=== PATIENT | male | born 1960 | race Caucasian/White ===

== ENCOUNTER → 2017-04-09 | Outpatient (CLI) | payer OTHER ==
[~2017-04-09] MED LIST: ASPEC81 PO; ATEN50TA8 PO; CEPH500C PO; CHOL100027 PO; DICL-201 PO; GABA-113 PO; GLCSR500 PO; IBUP-1427 PO; INSDGIPEN SQ; LSN5 PO; NRN300 PO; NVLGI SC; PLV75 PO; SIMV20TA2 PO; TRAM-10 PO
--- NOTE | 2017-04-09 12:11 | DIAGNOSTIC IMAGING REPORT ---
R TOE(S) MIN 2 VIEWS CLINICAL HISTORY: 56 years-old Male presenting with RIGHT 1ST TOE PAIN. TECHNIQUE: Frontal, oblique, and lateral views of the right first toe were obtained. COMPARISON: None. FINDINGS: A bandage overlies the medial aspect of the distal toe partially obscuring underlying osseous detail. Radiolucency in the region of the entire and medial aspect of the distal toe raises concern for subcutaneous emphysema or an open wound. No acute fracture or malalignment. Mild degenerative change at the first metatarsophalangeal articulation. The interphalangeal joint is intact. Atherosclerosis. IMPRESSION: Suggestion of soft tissue emphysema along the medial and plantar aspects of the distal first toe. This could raise concern for an open wound or necrotizing fasciitis depending on the clinical scenario. Alternatively, this may be artifactual. No acute osseous injury. Electronically signed by: Rudolph Arce M.D. 04/09/2017 12:09 PM Dictated Date/Time: 04/09/2017 12:07 PM
== END | disposition home or self-care (01) ==
LOC: C.RAD 11:27
PROVIDERS: ATTEND Physician Assistant
DX: M79.671 Pain in right foot (principal)

== ENCOUNTER 2024-10-10 09:00 | Inpatient (IN) ==
--- NOTE | 2024-10-10 09:10 | Emergency Department Note ---
Impression & Plan Sepsis, ESRD on peritoneal dialysis, Acute hyperglycemia, Acute dehydration ED Provider Note NAME: JULIANE CAMPBELL AGE: 64 SEX: M : 1960 ARRIVES VIA: Ambulance INFORMANT: Patient, ED PROVIDER(S): Abdirahman Enrique MD CHIEF COMPLAINT: MEDICAL DECISION MAKING: Patient presents due to concern for fevers tachycardia. Sepsis protocols initiated IV cefepime ordered. Patient clinically very dry and was ordered 1 L of IV fluids. IV Tylenol ordered. Screening chest x-ray and bio fire. Do not believe require CT of the head at this time patient is febrile likely infectious etiology given the patient's "fall" was him sliding out of his recliner to his buttocks. No reported head strike or LOC. 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 Not likely a cause of the patient's acute symptoms today. Patient was ordered a liter of IV fluids but the patient was not given 30 cc/kg bolus in light of his known dialysis history. Next Patient with a white count of 22 hemoglobin 11.8 with a normal platelet count. Patient kidney function with a crit of 6.5 BUN is 60. Potassium is not elevated. Lactate of 2.8 BioFire negative. Pro-Karthikeyan 7.1 with a troponin of 249. No active chest pain and no obvious STEMI. Patient was ordered a dose of IV vancomycin after discussion with on-call nephrology Dr. Mckenzie. I subsequently did speak the on-call hospitalist service Vitaliy Rich PA-C and the patient was admitted by Dr. Coker. Upon reassessment the patient was feeling improved. Discussion w/ other healthcare providers: Dr. Mckenzie nephrology Vitaliy Rich PA-C and Dr. Coker inpatient medicine service Prior /Outside records reviewed: None Differential diagnosis: Dehydration, UTI, pneumonia, metabolic derangment, electrolyte abnormalities, hypovolemia, anemia, cellulitis among others were considered. Diagnostics, as interpreted by me: ECG: A sensed V paced rhythm rate of 84 wide QRS no obvious STEMI. Cardiac monitoring: An order was placed for continuous cardiac monitoring. The monitor shows a rate of 95 with sinus rhythm. Patient was placed on pulse oximetry Medical decision rules: None Imaging studies: I informally interpreted the patient's chest x-ray does not show obvious pneumonia with formal report to follow. HPI: Patient presents due to concern for confusion worsening over the last 3 days. Patient is a known diabetic. Reportedly was 89% on room air but improved on 4 L. EMS reported patient was tachypneic at the time but that seems to have improved. The patient has a dry cough. Patient was febrile to 39. reports that she did have some rigors yesterday. She reports that he did not have a true fall but he slid out of his lazy boy on Thursday and did require EMS to show up for an assist. No head strike or LOC. The patient denies any abdominal pain. He does receive peritoneal dialysis. He does not make urine. He does follow with Dr. Abarca. Not eating or drinking very much. PAST MEDICAL HISTORY: See Below PAST SURGICAL HISTORY: See Below SOCIAL HISTORY: See Below HOME MEDICATIONS: See Below ALLERGIES: See Below VITALS: See Below PHYSICAL EXAMINATION: GENERAL: Mildly ill in appearance but nontoxic. Wearing glasses. EYE EXAM: Normal conjunctiva. PERRL, no anisocoria and EOM's grossly intact w/o pain. OROPHARYNX: Dry mucus membranes, grossly normal dentition. NECK: Trachea midline, no stridor. LUNGS: Clear to auscultation. Normal chest wall mechanics. HEART: NSR, no MRG. ABDOMEN: Abdomen soft, non-tender, no masses, no rebound or guarding. BACK: No CVA TTP. SKIN: No rashes and no bruising. UPPER EXTREMITIES:Dry gangrene noted to the distal right fourth and fifth digits. LOWER EXTREMITIES: Grossly normal, no edema. Redness to left 2nd and 3rd digits of the foot. NEURO EXAM: Awake and alert, follows commands, oriented to person and place but not to year. No obvious facial asymmetry, normal speech, moves all 4 extremities. 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) Chronic osteomyelitis (Chronic) Surgical wound, non healing (Acute) No significant past surgical history Person under investigation for COVID-19 (Acute) Status post partial amputation of foot Peripheral vascular disease (Chronic) History of diabetic ulcer of foot Cervical radiculopathy (Acute) CVA (cerebral infarction) (Chronic) HTN (hypertension) (Chronic) Diabetes mellitus (Chronic) Tendonitis (Chronic) Cervical radiculopathy (Acute) Chest pain (Acute) Chest pain (Acute) Diabetic peripheral neuropathy associated with type 2 diabetes mellitus Hyperglycemia (Chronic) Hyperglycemic crisis in diabetes mellitus (Acute 05/22/13) Loss of sensation Upper extremity pain (Acute) Medical History Amputation of left great toe Osteomyelitis Hallux abducto valgus, bilateral Amputated great toe of right foot Diabetes mellitus with neuropathy Diabetic peripheral neuropathy Callus Surgical History History of revascularization procedure of lower extremity Social History Smoking Status: Former smoker Tobacco Type: Smokeless Tobacco (Dip or Chew) Do You Dip or Chew Tobacco: Yes; Tobacco Cessation Education Requested by Patient: No Hx Alcohol Use: Yes Alcohol type: beer Hx Substance Use: No Preferred Language: Ukrainian Communication Ability: Effective Visual Impairment: Limited Hearing Ability: Normal Electrician Manager Required: No Beliefs That Will Affect Care: None marital status: Current Living Situation: Spouse current occupational status: employed 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 Feels Safe at Home: Yes Safety Concerns: Feels Safe At This Time Diet: diabetic caffeine: Yes Physical Activity Frequency: Daily Do you think of yourself as: straight/heterosexual Gender Identity: Male Assistive Devices: Glasses, Walker and Wheelchair Allergies Allergies Allergy/AdvReac Type Severity Reaction Status Date / Time daptomycin Allergy Rash Verified 10/10/24 09:48 Home Meds Home Medications Medication Instructions Recorded Confirmed atenolol 50 mg tablet 50 mg PO QAM 03/07/20 10/10/24 atorvastatin 40 mg tablet 80 mg PO QPM 03/07/20 10/10/24 clopidogrel 75 mg tablet 75 mg PO HS 03/07/20 10/10/24 insulin aspart U-100 100 unit/mL 1 sliding scale dose subcut UD 03/07/20 10/10/24 (3 mL) subcutaneous pen (Novolog FlexPen U-100 Insulin aspart) insulin glargine 100 unit/mL (3 20 unit subcut BID 03/07/20 10/10/24 mL) subcutaneous pen (Basaglar KwikPen U-100 Insulin) aspirin 81 mg tablet,delayed 81 mg PO DAILY 11/01/21 10/10/24 release cholecalciferol (vitamin D3) 25 25 mcg PO .3X WEEK 11/01/21 10/10/24 mcg (1,000 unit) tablet (Vitamin D3) acetaminophen 500 mg tablet 500 - 1,000 mg PO UD PRN Pain 10/10/24 10/10/24 amlodipine 5 mg tablet 2.5 mg PO QAM 10/10/24 10/10/24 gabapentin 600 mg tablet 600 mg PO TID 10/10/24 10/10/24 torsemide 100 mg tablet 100 mg PO DAILY 10/10/24 10/10/24 Results & Data (ED) Vital Signs Vital Signs - 24 hr 10/10/24 09:01 10/10/24 09:01 Temperature 39.4 C H Temperature Source Rectal Pulse Rate 94 H Respiratory Rate 16 Respiratory Effort / Characteristics Non-Labored Spontaneous Respiratory Depth Normal Respiratory Pattern Regular Blood Pressure 149/80 H Blood Pressure Mean 103 Pulse Oximetry 97 97 Oxygen Delivery Method Room Air Room Air Sepsis Recent Fever Within 48 Hours Yes Sepsis New/Unexplained Change in Mental Status Yes Sepsis Action Taken by Nursing Physician Notified Home Medications Current Medication List: was personally reviewed by me Laboratory Data Attestation: I reviewed the patient's lab results. 10/11/24 04:03 10/11/24 04:03 Lab Results 10/10/24 10/10/24 10/10/24 Range/Units 09:41 09:43 09:45 WBC 22.62 H (4.8-10.8) K/ul RBC 3.67 L (4.70-6.10) M/uL Hgb 11.8 L (14.0-18.0) g/dl POC Hgb (14.0-18.0) g/dl Hct 34.0 L (42.0-52.0) % POC Hct (42-52) % MCV 92.6 (80.0-100.0) fL MCH 32.2 (25.0-34.0) pg MCHC 34.7 (32.0-36.0) g/dL RDW Std Deviation 45.2 (36.4-46.3) fL RDW Coeff of Kesha 13.3 (11.5-14.5) % Plt Count 165 (130-400) K/uL MPV 10.9 (9.4-12.4) fL Immature Gran % (Auto) 1.5 % Neut % (Auto) 85.8 % Lymph % (Auto) 4.2 % [place] % (Auto) 8.0 % Eos % (Auto) 0.3 % Baso % (Auto) 0.2 % Neut # (Auto) 19.41 H (1.40-6.50) K/uL Lymph # (Auto) 0.96 L (1.20-3.40) K/uL [place] # (Auto) 1.81 H (0.11-0.59) K/uL Eos # (Auto) 0.06 (0.00-0.50) K/uL Baso # (Auto) 0.05 (0.00-0.20) K/uL Immature Gran # (Auto) 0.33 H (0.01-0.20) K/uL POC Sodium (135-144) mmol/L Sodium 131 L (136-145) mmol/L POC Potassium (3.3-5.0) mmol/L Potassium 3.6 (3.5-5.1) mmol/L POC Chloride (101-112) mmol/L Chloride 92 L (98-107) mmol/L Carbon Dioxide 26 (21-32) mmol/L POC Total CO2 (24-31) mmol/L Anion Gap 13 H (3-11) POC Anion Gap (16-25) mmol/L POC BUN (7-18) mg/dl BUN 60 H (6-23) mg/dl Creatinine 6.53 H* (0.6-1.4) mg/dl POC Creatinine (0.6-1.3) mg/dl Est Cr Clr Drug Dosing 14.8 ml/min eGFR 8.90 BUN/Creatinine Ratio 9.2 L (10-20) Glucose 451 H* (70-99(Fasting)) mg/dl POC Glucose (other) (70-99) mg/dl Lactate 2.8 H* (0.4-2.0) mmol/L Calcium 8.4 L (8.6-10.3) mg/dl POC Ioniz Calcium Osmin (1.12-1.32) mmol/l Magnesium 1.7 (1.7-2.4) mg/dl Total Bilirubin 1.2 H (0.2-1.0) mg/dl Direct Bilirubin 0.5 H (0-0.2) mg/dl AST 62 H (13-39) U/L ALT 46 (7-52) U/L Alkaline Phosphatase 125 H (34-104) U/L Troponin I High Sens 249.4 H* (0-20) pg/ml Total Protein 7.3 (6.0-8.3) gm/dl Albumin 3.3 L (3.4-5.0) gm/dl Procalcitonin 7.16 H (0-0.5) ng/ml Adenovirus (PCR) Not Detected (NotDetected) B. pertussis DNA (PCR) Not Detected (NotDetected) B.parapertussis DNA PCR Not Detected (NotDetected) C. pneumoniae DNA (PCR) Not Detected (NotDetected) Coronavirus OC43 (PCR) Not Detected (NotDetected) Coronavirus HKU1 (PCR) Not Detected (NotDetected) Coronavirus 229E (PCR) Not Detected (NotDetected) SARS-CoV-2 (PCR) Not Detected (NotDetected) Coronavirus NL63 (PCR) Not Detected (NotDetected) Human Metapneumovir PCR Not Detected (NotDetected) Influenza Type A (PCR) Not Detected (NotDetected) Influenza Type B (PCR) Not Detected (NotDetected) M. pneumoniae (PCR) Not Detected (NotDetected) Parainfluenza 1 (PCR) Not Detected (NotDetected) Parainfluenza 2 (PCR) Not Detected (NotDetected) Parainfluenza 3 (PCR) Not Detected (NotDetected) Parainfluenza 4 (PCR) Not Detected (NotDetected) RSV (PCR) Not Detected (NotDetected) Entero/Rhino (PCR) Not Detected (NotDetected) Staphylococcus sp PCR (NotDetected) Staph aureus (PCR) (NotDetected) mecA/C & MREJ Resist Gene (NotDetected) Bld Cult ID Panel PCR (NotDetected) 10/10/24 10/10/24 Range/Units 09:53 09:57 WBC (4.8-10.8) K/ul RBC (4.70-6.10) M/uL Hgb (14.0-18.0) g/dl POC Hgb 11.6 L (14.0-18.0) g/dl Hct (42.0-52.0) % POC Hct 34 L (42-52) % MCV (80.0-100.0) fL MCH (25.0-34.0) pg MCHC (32.0-36.0) g/dL RDW Std Deviation (36.4-46.3) fL RDW Coeff of Kesha (11.5-14.5) % Plt Count (130-400) K/uL MPV (9.4-12.4) fL Immature Gran % (Auto) % Neut % (Auto) % Lymph % (Auto) % [place] % (Auto) % Eos % (Auto) % Baso % (Auto) % Neut # (Auto) (1.40-6.50) K/uL Lymph # (Auto) (1.20-3.40) K/uL [place] # (Auto) (0.11-0.59) K/uL Eos # (Auto) (0.00-0.50) K/uL Baso # (Auto) (0.00-0.20) K/uL Immature Gran # (Auto) (0.01-0.20) K/uL POC Sodium 132 L (135-144) mmol/L Sodium (136-145) mmol/L POC Potassium 3.7 (3.3-5.0) mmol/L Potassium (3.5-5.1) mmol/L POC Chloride 93 L (101-112) mmol/L Chloride (98-107) mmol/L Carbon Dioxide (21-32) mmol/L POC Total CO2 24 (24-31) mmol/L Anion Gap (3-11) POC Anion Gap 20.0 (16-25) mmol/L POC BUN 50 H (7-18) mg/dl BUN (6-23) mg/dl Creatinine (0.6-1.4) mg/dl POC Creatinine 6.6 H* (0.6-1.3) mg/dl Est Cr Clr Drug Dosing ml/min eGFR BUN/Creatinine Ratio (10-20) Glucose (70-99(Fasting)) mg/dl POC Glucose (other) 423 H* (70-99) mg/dl Lactate (0.4-2.0) mmol/L Calcium (8.6-10.3) mg/dl POC Ioniz Calcium Osmin 0.99 L (1.12-1.32) mmol/l Magnesium (1.7-2.4) mg/dl Total Bilirubin (0.2-1.0) mg/dl Direct Bilirubin (0-0.2) mg/dl AST (13-39) U/L ALT (7-52) U/L Alkaline Phosphatase (34-104) U/L Troponin I High Sens (0-20) pg/ml Total Protein (6.0-8.3) gm/dl Albumin (3.4-5.0) gm/dl Procalcitonin (0-0.5) ng/ml Adenovirus (PCR) (NotDetected) B. pertussis DNA (PCR) (NotDetected) B.parapertussis DNA PCR (NotDetected) C. pneumoniae DNA (PCR) (NotDetected) Coronavirus OC43 (PCR) (NotDetected) Coronavirus HKU1 (PCR) (NotDetected) Coronavirus 229E (PCR) (NotDetected) SARS-CoV-2 (PCR) (NotDetected) Coronavirus NL63 (PCR) (NotDetected) Human Metapneumovir PCR (NotDetected) Influenza Type A (PCR) (NotDetected) Influenza Type B (PCR) (NotDetected) M. pneumoniae (PCR) (NotDetected) Parainfluenza 1 (PCR) (NotDetected) Parainfluenza 2 (PCR) (NotDetected) Parainfluenza 3 (PCR) (NotDetected) Parainfluenza 4 (PCR) (NotDetected) RSV (PCR) (NotDetected) Entero/Rhino (PCR) (NotDetected) Staphylococcus sp PCR DETECTED A (NotDetected) Staph aureus (PCR) DETECTED A (NotDetected) mecA/C & MREJ Resist Gene MRSA Not Detected (NotDetected) Bld Cult ID Panel PCR See PCR Comment (NotDetected) Administered Medications Acetaminophen (Acetaminophen 325 Mg Tab) 650 mg PO Q4H PRN PRN Reason: Moderate Pain (Scale 4, 5, 6) Stop: 11/09/24 15:30 Last Admin: 10/10/24 20:32 Dose: 650 mg Documented By: SARAH Atorvastatin Calcium (Atorvastatin 40 Mg Tab) 80 mg PO QPM ESTHER Stop: 11/09/24 20:59 Last Admin: 10/10/24 20:25 Dose: 80 mg Documented By: SARAH Clopidogrel Bisulfate (Clopidogrel Bisulfate 75 Mg Tab) 75 mg PO HS ESTHER Stop: 11/09/24 20:59 Last Admin: 10/10/24 20:24 Dose: 75 mg Documented By: SARAH Gabapentin (Gabapentin 600 Mg Tab) 600 mg PO TID [facility] Stop: 11/09/24 15:30 Last Admin: 10/11/24 08:54 Dose: 600 mg Documented By: Admin: 10/10/24 20:24 Dose: 600 mg Documented By: Admin: 10/10/24 16:25 Dose: 600 mg Documented By: EDD Piperacillin Sod/Tazobactam Sod (Zosyn) 4.5 gm in 100 mls @ 25 mls/hr IV Q12H [facility]; Protocol Stop: 10/25/24 19:59 Last Admin: 10/11/24 08:54 Dose: 25 mls/hr Documented By: Infusion: 10/11/24 00:29 Dose: Infused Documented By: Admin: 10/10/24 20:23 Dose: 25 mls/hr Documented By: SARAH Insulin Aspart (Insulin Aspart Per Unit Charge) 0 units SC ACHS [facility] Stop: 11/09/24 16:29 Last Admin: 10/11/24 08:54 Dose: 3 units Documented By: ADILENE Co-signed By: VAL Admin: 10/10/24 20:50 Dose: 7 units Documented By: SARAH Co-signed By: NICOLE Admin: 10/10/24 16:24 Dose: 9 units Documented By: EDD Co-signed By: MITALI Insulin Glargine (Lantus Per Unit Charge) 20 units SC BID [facility]; Protocol Stop: 11/09/24 20:59 Last Admin: 10/11/24 08:55 Dose: 20 units Documented By: ADILENE Co-signed By: VAL Admin: 10/10/24 20:50 Dose: 20 units Documented By: SARAH Co-signed By: NICOLE Mupirocin (Mupirocin 2% Oint 22 Gm Tube) 1 appln EXT DAILY ESTHER Stop: 11/09/24 17:29 Last Admin: 10/11/24 08:55 Dose: 1 appln Documented By: Admin: 10/10/24 18:17 Dose: 1 appln Documented By: EDD Vitamin D (Cholecalciferol 25 Mcg (1000 Units) Tab) 25 mcg PO MoWeFr@0900 ESTHER Stop: 11/09/24 15:30 Last Admin: 10/10/24 16:25 Dose: 25 mcg Documented By: EDD Discontinued Medications Sodium Chloride (Nss) 1,000 mls @ 999 mls/hr IV .Q1H1M ESTHER Stop: 10/10/24 10:30 Last Infusion: 10/10/24 11:21 Dose: Infused Documented By: Admin: 10/10/24 09:48 Dose: 999 mls/hr Documented By: BRYAN Cefepime HCl (Maxipime 2000mg) 2,000 mg in 20 mls @ 5 mls/min IV NOW STA; Protocol Stop: 10/10/24 09:33 Last Admin: 10/10/24 10:12 Dose: 5 mls/min Documented By: BRYAN Acetaminophen (Ofirmev) 1,000 mg in 100 mls @ 400 mls/hr IV NOW STA Stop: 10/10/24 09:44 Last Infusion: 10/10/24 10:40 Dose: Infused Documented By: Admin: 10/10/24 10:04 Dose: 400 mls/hr Documented By: BRYAN Vancomycin HCl 2,750 mg/ (Sodium Chloride) 555 mls @ 200 mls/hr IV NOW ONE Stop: 10/10/24 13:29 Last Infusion: 10/10/24 15:33 Dose: Infused Documented By: Admin: 10/10/24 11:21 Dose: 200 mls/hr Documented By: CEF Piperacillin Sod/Tazobactam Sod (Zosyn) 4.5 gm in 100 mls @ 200 mls/hr IV NOW STA; Protocol Stop: 10/10/24 11:47 Last Infusion: 10/10/24 15:33 Dose: Infused Documented By: Admin: 10/10/24 12:07 Dose: 200 mls/hr Documented By: DEE Insulin Aspart (Insulin Aspart Per Unit Charge) 0 units SC NOW STA Stop: 10/10/24 12:07 Last Admin: 10/10/24 12:24 Dose: 11 units Documented By: DEE Co-signed By: PURNIMA Insulin Aspart (Insulin Aspart Per Unit Charge) 0 units SC 0000,0400 ESTHER Stop: 10/11/24 04:01 Last Admin: 10/11/24 04:59 Dose: 3 units Documented By: SARAH Co-signed By: RUTHANN Admin: 10/11/24 00:27 Dose: 6 units Documented By: SARAH Co-signed By: MARCIA Insulin Glargine (Lantus Per Unit Charge) 20 units SC NOW STA Stop: 10/10/24 12:05 Last Admin: 10/10/24 12:24 Dose: 20 units Documented By: DEE Co-signed By: PURNIMA Ioversol (Optiray 320 100ml) 94 ml IV ONCE ONE Stop: 10/10/24 12:32 Last Admin: 10/10/24 12:32 Dose: 94 ml Documented By: LORENA Imaging Data Radiologist's Impression: Chest X-Ray 10/10/24 09:30 XR chest 1V portable CLINICAL HISTORY: Sepsis COMPARISON STUDY: 05/22/2013 FINDINGS: There is an oval cavity pacemaker. There is mild cardiomegaly with mild pulmonary vascular congestion. No consolidation or pleural effusion. No pneumothorax. IMPRESSION: Mild CHF. ACT 112: Negative or not required by law. Electronically signed by: Prabhu Cordova M.D. 10/10/2024 9:59 AM Discharge Plan Visit Data Chief Complaint: Confusion Stated Complaint: CONFUSION ED Provider: Abdirahman Enrique Discharge Problem: Sepsis, ESRD on peritoneal dialysis, Acute hyperglycemia, Acute dehydration Patient Disposition: Admitted As Inpatient Condition: Good Discharge Instructions Interventions: ED Discharge Assessment Last Done: 10/10/24 12:07 Discharge Problem: Sepsis Qualifiers: Sepsis type: sepsis due to unspecified organism Sepsis acute organ dysfunction status: with acute organ dysfunction Severe sepsis acute organ dysfunction type: encephalopathy Severe sepsis shock status: without septic shock Qualified Code(s): A41.9 - Sepsis, unspecified organism; R65.20 - Severe sepsis without septic shock; G93.41 - Metabolic encephalopathy
[2024-10-10] MEDS: SODIUM CHLORIDE 0.9% 1,000 ML IV SCH (09:48)
--- NOTE | 2024-10-10 10:01 | XRay Report ---
XR chest 1V portable CLINICAL HISTORY: Sepsis COMPARISON STUDY: 05/22/2013 FINDINGS: There is an oval cavity pacemaker. There is mild cardiomegaly with mild pulmonary vascular congestion. No consolidation or pleural effusion. No pneumothorax. IMPRESSION: Mild CHF. ACT 112: Negative or not required by law. Electronically signed by: Prabhu Cordova M.D. 10/10/2024 9:59 AM
[2024-10-10] MEDS: ACETAMINOPHEN 1,000 MG/100 ML VIAL IV STA (10:04)
[2024-10-10 10:05] LABS: Hematocrit (blood only) 34.0 % (42.0-52.0); Hemoglobin 11.8 g/dl (14.0-18.0); Immature Granulocytes # (auto) 0.33 K/uL (0.01-0.20); Immature Granulocytes % (auto) 1.5 %; Mean Corpuscular Hemoglobin 32.2 pg (25.0-34.0); Mean Corpuscular Volume 92.6 fL (80.0-100.0); Platelet Count 165 K/uL (130-400); RDW Standard Deviation 45.2 fL (36.4-46.3); Red Blood Count 3.67 M/uL (4.70-6.10); White Blood Count 22.62 K/ul (4.8-10.8)
[2024-10-10] MEDS: CEFEPIME 2000MG 2,000 MG/20 ML SYR IV STA (10:12)
[2024-10-10 10:30] LABS: Alanine Aminotransferase 46.0 U/L (7-52); Alkaline Phosphatase 125.0 U/L (34-104); Anion Gap 13.0 (3-11); Bilirubin,Total 1.2 mg/dl (0.2-1.0); Blood Urea Nitrogen 60.0 mg/dl (6-23); Calcium 8.4 mg/dl (8.6-10.3); Carbon Dioxide 26.0 mmol/L (21-32); Chloride 92.0 mmol/L (98-107); Creatinine Clr Calc Pharmacy 14.8 ml/min; Glucose 451.0 mg/dl (70-99(Fasting)); Magnesium 1.7 mg/dl (1.7-2.4); Potassium 3.6 mmol/L (3.5-5.1); Sodium 131.0 mmol/L (136-145); Total Protein 7.3 gm/dl (6.0-8.3)
--- NOTE | 2024-10-10 10:38 | History & Physical Report ---
Date of Service October 10, 2024 Assessment & Plan (1) Sepsis: (2) Diabetes mellitus: (3) Diabetic peripheral neuropathy associated with type 2 diabetes mellitus: (4) Peripheral vascular disease: (5) ESRD on peritoneal dialysis: (6) HTN (hypertension): (7) S/P cardiac pacemaker procedure: (8) History of diabetic ulcer of foot: Plan Sepsis - Admit to PCU - WBC 22.62 with a left shift, elevated lactate - BCx x 2, will need to obtain peritoneal fluid to eval for SBP with dialysis - plan for tap this afternoon. - Started on IV cefepime in the ER, will switch to vanc and zosyn for broader coverage. Discussed with Dr. Lorenzo at bedside with nephro. - Biofire resp is negative , dry cough, CXR reviewed as above with mild pulmonary vascular congestion. No consolidation or pleural effusion. No pneumothorax. - Was given 1 L fluids in the ER, appears clinically dry - Toe injury on the left and 3rd - concern for s/p fall with injury to this area. - Also complaining of lower back pain which is suspicious for discitis with being well/baseline prior to the fall he sustained on Thursday. - CT abd/pelvis/chest to eval for source of sepsis with IV contrast - Repeat BMP and troponin this afternoon. - Suspect trop to be elevated with ckd. he has no acute cp, do not assume this is ACS. ESRD on peritoneal dialysis - Consult nephro, follows with Dr. Abarca outpt. - Discussed with their team at bedside regarding abx therapy, imaging, peritoneal hd and paracentesis today - appreciate recs. - BUN 60/creatinine 6.5, sodium 131, potassium 3.6 DM II - Glucose over 450 on admission - Check a1c with am labs - ISS with accuchecks achs. Will reduce lantus in half for today. He did not get any of his morning meds. HTN - Hold antihypertensives at this time, resume with improved status/bp is soft - Hold torsemide with dialysis/soft bp/clinically dry - resume once improved Peripheral Vascular disease Multiple amputation history - Reviewed as per [facility] - see below. LEFT HANDED S/P L-sided pacer. S/P R BBAVF creation by Dr. Enrique on 11/26/23; ligated 01/19/24 r/t steal - he traumatized his R hand when he ran his scooter into his tool box. Transitioned to PD (PD catheter placed 04/2024). 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 He has a complicated LE revasc/amputation history, to include: RIGHT: S/P R ATTENDANT SALES endarterectomy, R SFA/pop angioplasty/stenting, and R peroneal angioplasty by Dr. Loco on 03/13/2017 S/P R PT/peroneal angioplasty and R great toe amputation 05/03/[address] Loco. S/P R great toe amputation debridement 05/06/[address] Loco. S/P R LE angiogram 05/31/[address] Enrique. S/P R SFA ALEKS-angioplasty 07/04/[address] Enrique S/P REIA stent, R SFA/pop lithotripsy/angioplasty (for occlusion), R PT/peroneal angioplasty by on 07/08/24.. Current with R lateral heel ulcer. LEFT: S/P L ATTENDANT SALES/DFA Endarterectomy and L SFA stent by Dr. Loco on 09/04/14 S/P L SFA/pop angioplasty by Dr. Page on 06/26/20 S/P L EIA stenting, L pop lithotripsy, and L PT/peroneal angioplasty by Dr. Enrique on 05/31/21 S/P L hallux amputation 07/01/[address] Aguilar S/P L 1st ray amputation 08/08/[address] Aguilar. 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 04/2014 Carotid duplex showed < 50% carotid stenosis bilaterally (report scanned in epic). 06/2023 carotid duplex demonstrates less than 50% carotid stenosis b/l ICAs. Hx PE in 2010, treated with Coumadin for ~3 months. -No longer on anticoagulation DVT ppx: teds, scds Lines: PIV x 2 FEN/GI: n.p.o. for now, consider diet this afternoon if improved cognition CODE: full code - pt to further discuss with his - re-evaluate as cognition improves. Dispo: From home, likely to remain in the hospital x 2 days. I spent a total of 87 minutes with greater than 50% of that time face to face with the patient, personally reviewing all current laboratories, imaging studies, past medication reconciliation, outpatient chart review, and discussion with specialists to collaborate care for the patient excluding time spent in the performance of separately billed services or time spent by another provider/QHP. Please see attending documentation for corrections and/or additions. History of Present Illness Chief Complaint: Confusion, fever Primary Care Provider: Seth Jasso MD This is a 64-year-old male with PMHx of end-stage renal disease on peritoneal dialysis, DM type II, CAD, HTN history of complete heart block, s/p pacemaker insertion, aortic valve, bicuspid, history of PE, peripheral vascular disease, s/p left great toe amputation,chronic left 2nd and 3rd toe wound, left well- healed heel ulcer, dry gangrene of right hand, who presents to the hospital with approximately 24 hours of increased confusion, lethargy, fever, chills/rigors. Pts is present with him at bedside. He c/o back pain which started on Thursday (3 days ago), noted lower back, and uses a walker/wheelchair at baseline. On Thursday pt took wheelchair to the bathroom and then had issue standing up and slid in the bathroom where he injured the left 2nd and 3rd toes which are now bloody. Pt had issues trying to get back into the recliner. Then again yesterday (Thursday) slid out of the recliner yesterday due to increased weakness. Denies LOC, did not hit his head. Pt does not normally walk at all at baseline. Pt does home peritoneal dialysis, got out 1.6 L last evening per . He has a port which is maintained in the abdomen. He does make a small amount of urine at baseline. Pt also notes dry cough, for the past 6 months. He has occasional phlegm. N0 acute shortness of breath or chest complaints. WBC 22,000 with a left shift, BUN 50/creatinine 6.6, sodium 132, potassium 3.7, glucose elevated at 423, lactate 2.8. Respiratory biofire is negative. Allergies Allergy/AdvReac Type Severity Reaction Status Date / Time daptomycin Allergy Rash Verified 10/10/24 09:48 Home Medications Medication Instructions Recorded Confirmed Type atenolol 50 mg tablet 50 mg PO QAM 03/07/20 10/10/24 History atorvastatin 40 mg tablet 80 mg PO QPM 03/07/20 10/10/24 History clopidogrel 75 mg tablet 75 mg PO HS 03/07/20 10/10/24 History insulin aspart U-100 100 unit/mL 1 sliding scale dose subcut UD 03/07/20 10/10/24 History (3 mL) subcutaneous pen (Novolog FlexPen U-100 Insulin aspart) insulin glargine 100 unit/mL (3 20 unit subcut BID 03/07/20 10/10/24 History mL) subcutaneous pen (Basaglar KwikPen U-100 Insulin) aspirin 81 mg tablet,delayed 81 mg PO DAILY 11/01/21 10/10/24 History release cholecalciferol (vitamin D3) 25 25 mcg PO .3X WEEK 11/01/21 10/10/24 History mcg (1,000 unit) tablet (Vitamin D3) acetaminophen 500 mg tablet 500 - 1,000 mg PO UD PRN Pain 10/10/24 10/10/24 History amlodipine 5 mg tablet 2.5 mg PO QAM 10/10/24 10/10/24 History gabapentin 600 mg tablet 600 mg PO TID 10/10/24 10/10/24 History torsemide 100 mg tablet 100 mg PO DAILY 10/10/24 10/10/24 History Past Med/Surg History Problem List (Updated 10/10/24 @ 10:26 by Michelle Rich PA-C) S/P cardiac pacemaker procedure ESRD on peritoneal dialysis Sepsis 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 (Chronic) Chronic osteomyelitis (Chronic) Surgical wound, non healing (Acute) No significant past surgical history Person under investigation for COVID-19 (Acute) Status post partial amputation of foot Peripheral vascular disease (Chronic) History of diabetic ulcer of foot Cervical radiculopathy (Acute) CVA (cerebral infarction) (Chronic) HTN (hypertension) (Chronic) Diabetes mellitus (Chronic) Tendonitis (Chronic) Cervical radiculopathy (Acute) Chest pain (Acute) Chest pain (Acute) Diabetic peripheral neuropathy associated with type 2 diabetes mellitus Hyperglycemia (Chronic) Hyperglycemic crisis in diabetes mellitus (Acute 05/22/13) Loss of sensation Upper extremity pain (Acute) Medical History Amputated great toe of right foot Amputation of left great toe Callus Cervical radiculopathy CVA (cerebral infarction) Diabetes mellitus with neuropathy Diabetic peripheral neuropathy Hallux abducto valgus, bilateral History of diabetic ulcer of foot HTN (hypertension) Osteomyelitis Peripheral vascular disease Status post partial amputation of foot Surgical History History of revascularization procedure of lower extremity No significant past surgical history Social History Smoking Status: Former smoker Hx Alcohol Use: No Hx Substance Use: No Preferred Language: Armenian Visual Impairment: Limited Hearing Ability: Normal Compensation Expert Required: No Beliefs That Will Affect Care: None marital status: Current Living Situation: Spouse current occupational status: employed 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 Feels Safe at Home: Yes Diet: diabetic caffeine: Yes Physical Activity Frequency: Daily Do you think of yourself as: straight/heterosexual Gender Identity: Male Assistive Devices: Cane, Glasses and Special Shoe Review of Systems Review of Systems: Constitutional: +fever, sweats + chills/rigors Eyes: No diplopia, no worsening or blurred vision ENT: normal hearing, no trouble swallowing Respiratory: + dry cough, occasional sputum, no dyspnea at rest or on exertion Cardiovascular: No chest pain, tightness or palpitations Abdomen: No pain, nausea, vomiting, diarrhea , + constipation Musculoskeletal: No joint pain, calf pain, +lower leg swelling Neurologic: + generalized weakness, + chronic numbness/tingling BLE, or balance problems Psychiatric: No anxiety or depression Skin: No rash or itch, + skin changes mid chest from previous heart surgeries Physical Exam Physical Exam: General: awake, alert, no apparent distress, + somewhat confused, asks to help with answers Head: Normocephalic, atraumatic ENT: PERRL, EOMI, no pharyngeal exudate, mucous membranes dry Chest: Clear to auscultation, on room air, no adventitious breath sounds Cardiac: Regular rate and rhythm, + loud holosystolic murmur, no JVD, normal peripheral pulses, good capillary refill Abdominal: NABS x 4 quadrants, soft, nondistended, nontender to palpation, no rebound or guarding Extremities: Normal inspection, +2 peripheral edema, no erythema, calfs nontender to palpation , s/p great toe amputations bilaterally - he does have injuries to the left 2nd and 3rd toe which are bloody. + dry gangrene involving the Right 4th and 5th fingers. . Psych: Flat mood and affect Neuro: AAO to self, place, asks to answer questions, is slow to respond, no obvious motor deficits, speech is clear, no peripheral sensory deficits Results & Data Results & Data Vital Signs (Past 12 Hours) Vital Signs Temp Pulse Pulse Resp BP BP Pulse Ox 10/10/24 10:08 92 H 20 161/70 H 97 10/10/24 09:37 96 H 10/10/24 09:01 97 10/10/24 09:01 39.4 C H 94 H 16 149/80 H 97 O2 Del Method 10/10/24 10:08 Room Air 10/10/24 09:37 10/10/24 09:01 Room Air 10/10/24 09:01 Room Air Laboratory Results 10/10/24 09:57 Aerobic Blood Culture - Pending Blood Anaerobic Blood Culture - Pending 10/10/24 09:57 Aerobic Blood Culture - Pending Blood Anaerobic Blood Culture - Pending 10/10/24 10/10/24 10/10/24 09:53 09:45 09:41 WBC 22.62 H RBC 3.67 L Hgb 11.8 L POC Hgb 11.6 L Hct 34.0 L POC Hct 34 L MCV 92.6 MCH 32.2 MCHC 34.7 RDW Std Deviation 45.2 RDW Coeff of Kesha 13.3 Plt Count 165 MPV 10.9 Immature Gran % (Auto) 1.5 Neut % (Auto) 85.8 Lymph % (Auto) 4.2 [place] % (Auto) 8.0 Eos % (Auto) 0.3 Baso % (Auto) 0.2 Neut # (Auto) 19.41 H Lymph # (Auto) 0.96 L [place] # (Auto) 1.81 H Eos # (Auto) 0.06 Baso # (Auto) 0.05 Immature Gran # (Auto) 0.33 H POC Sodium 132 L POC Potassium 3.7 POC Chloride 93 L POC Total CO2 24 POC Anion Gap 20.0 POC BUN 50 H POC Creatinine 6.6 H* POC Glucose (other) 423 H* Lactate 2.8 H* POC Ioniz Calcium Osmin 0.99 L Diagnostic Findings Chest X-Ray 10/10/24 09:30 XR chest 1V portable CLINICAL HISTORY: Sepsis COMPARISON STUDY: 05/22/2013 FINDINGS: There is an oval cavity pacemaker. There is mild cardiomegaly with mild pulmonary vascular congestion. No consolidation or pleural effusion. No pneumothorax. IMPRESSION: Mild CHF. ACT 112: Negative or not required by law. Electronically signed by: Prabhu Cordova M.D. 10/10/2024 9:59 AM Code Status & VTE Plan Code Status Full code - discussion at bedside with and the patient however they would like more time when he is less confused to readdress this and discuss possible DNR/DNI. Supervising Physician Co-Signing Physician Notes Pt seen and examined by me, care coordinated w/ Delfina Rich PA-C, pls refer to her note above for further detail. Pt is a 64 yo M male with end-stage renal disease on peritoneal dialysis, DM type II (on insulin, CAD, HTN history of complete heart block, s/p pacemaker insertion, aortic valve, bicuspid, history of PE, peripheral vascular disease, s/p left and right great toe amputation,chronic left 2nd and 3rd toe wound, left well-healed heel ulcer, dry gangrene of right hand, who presents to the hospital with approximately 24 hours of increased confusion, lethargy, fever, chills. Pt's helps provide history, pt was at his normal health until he fell in the bathroom on Thursday - at that time his toes were bleeding and seems like since then pt has been feeling worse. Per outpt chart review - pt was seen on September 23 by vascular surgery and no new procedures were planned - pt was to continue with betadine on his wounds and follow up w/ podiatry. Pt saw fuel storage technician on October 04, nail care was provided and pt was to follow up w/ wound care and use betadine. Currently pt in ED, awake, able to to answer simple questions appropriately but often refers for answers to his . He is aware of being in the hospital. Pt and report dry cough for several months now. Denies any abdominal pain. Pt does have some LE edema, there is no erythema noted of LEs except for left foot toes - that were recently also injured. decreased breath sounds, + regular HR. moves extremities, + dry gangrene of fingers of R hand noted - look unchanged from images in outpt EMR. In ED WBC 22K, temp 39.4C. Blood cultx obtained. CXR negative for pna. Pt is on peritoneal dialysis since 04/2024, plan to obtain peritoneal fluid for cultx. Pt also seen with Dr. Lorenzo (instrument shop supervisor) at the bedside and discussed with. Will obtain CT chest, abdomen, pelvis w/ contrast. Received cefepime, will change to vanco + zosyn. Will consult with podiatry and wound care. MD Sheela
[2024-10-10] MEDS ORDERED: VANCOMYCIN HCL 2,750 MG in SODIUM CHLORIDE 0.9% 500 ML IV ONE (10:43)
[2024-10-10] MEDS ORDERED: VANCOMYCIN CONSULT ACTIVE PRN ×3 (10:43→12:09)
[2024-10-10 10:55] LABS: Chlamydia pneumoniae PCR Not Detected (NotDetected); Coronavirus 229E PCR Not Detected (NotDetected); Coronavirus CoV-2 (COVID19)PCR Not Detected (NotDetected); Coronavirus HKU1 PCR Not Detected (NotDetected); Coronavirus NL63 PCR Not Detected (NotDetected); Coronavirus OC43PCR Not Detected (NotDetected); Human Metapneumovirus PCR Not Detected (NotDetected); Parainfluenza Virus 1 PCR Not Detected (NotDetected); Parainfluenza Virus 2 PCR Not Detected (NotDetected); Parainfluenza Virus 3 PCR Not Detected (NotDetected); Parainfluenza Virus 4 PCR Not Detected (NotDetected); Respiratory Syncytial VirusPCR Not Detected (NotDetected); Rhinovirus/Enterovirus PCR Not Detected (NotDetected)
[2024-10-10] MEDS: VANCOMYCIN HCL 2,750 MG in SODIUM CHLORIDE 0.9% 500 ML IV ONE (11:21)
[2024-10-10] MEDS ORDERED: PHARMACY GLYCEMIC MGMT CONSULT PRN (11:45)
[2024-10-10] MEDS: PIPERACILLIN/TAZOBACTAM 4.5 GM/100 ML BAG IV STA (12:07)
[2024-10-10] MEDS: LANTUS PER UNIT CHARGE SC STA (12:24)
[2024-10-10] MEDS: INSULIN ASPART PER UNIT CHARGE SC STA (12:24)
--- NOTE | 2024-10-10 12:29 | XRay Report ---
XR foot LT min 3V routine CLINICAL HISTORY: eval for fracture COMPARISON: 11/01/2021 FINDINGS: Stable amputation at the mid to distal aspect of the first metatarsal. Stable unfused ossi roberto adjacent to the medial navicular. No acute fracture or dislocation seen. There are atheroscleroti c calcifications. No evidence of osteomyelitis. No significant degenerative change seen. IMPRESSION: No acute fracture seen. ACT 112: Negative or not required by law. Electronically signed by: Prabhu Cordova M.D. 10/10/2024 12:27 PM
[2024-10-10] MEDS: OPTIRAY 320 100ml IV ONE (12:32)
--- NOTE | 2024-10-10 12:52 | CT Scan Report ---
CT SCAN OF THE CHEST WITH IV CONTRAST CLINICAL HISTORY: Evaluate for source of sepsis. COMPARISON STUDY: Chest CT May 23, 2013. Chest radiograph performed earlier today. TECHNIQUE: Following the IV administration of 94 cc of Optiray 320, CT scan of the thorax was perform ed from the thoracic inlet to the upper abdomen. Images are reviewed in the axial, sagittal, and annita nal planes. IV contrast was administered without complication. A dose lowering technique was utilize d adhering to the principles of ALARA. CT DOSE: 2399.59 mGy.cm FINDINGS: A left subclavian pacer is in place. There are are median sternotomy wires and postoperativ e findings from bypass grafting. Extensive coronary artery calcification is noted. Heart is mildly en larged. There is no pericardial effusion. Prominent bilateral hilar lymph nodes are likely benign. Th ere is no pneumothorax or pleural effusion. No consolidation is present. However, there are are multi focal cluster tree-in-bud nodules throughout the lungs. These were not present on prior CT. Additiona l small pulmonary nodules are noted, including a defibrillator right lower lobe nodule on image 151. The nodule was not clearly present on prior CT. A few additional smaller pulmonary nodules are unchan ged. Central airways are patent. Abdomen and pelvis CT will be reported separately. IMPRESSION: 1. No consolidation. Multifocal clustered tree-in-bud nodules within the lungs. These favor an age in determinate mild infectious or inflammatory process. A follow-up CT in 3 months to ensure resolution is recommended. 2. Scattered nodules throughout the lungs, a few of which are new since prior CT. These are low suspi cion but should be assessed on follow-up CT. 3. Mild cardiomegaly. Extensive coronary artery calcification. Status post median sternotomy and bypa ss grafting. ACT 112: Negative or not required by law Electronically signed by: Tyrone Pearson M.D. 10/10/2024 12:51 PM
--- NOTE | 2024-10-10 13:01 | CT Scan Report ---
CT SCAN OF THE ABDOMEN AND PELVIS WITH IV CONTRAST CLINICAL HISTORY: Evaluate for source of sepsis. COMPARISON STUDY: Renal ultrasound March 12, 2010. TECHNIQUE: Following the IV administration of 94 cc of Optiray 320, CT scan of the abdomen and pelvi s is performed from the lung bases to the proximal femora. Images are reviewed in the axial, sagittal , and coronal planes. IV contrast was administered without complication. A dose lowering technique wa s utilized adhering to the principles of ALARA. FINDINGS: Please note that the chest CT will be reported separately. No pneumatosis, free air or port al venous gas is present. Trace fluid within the abdomen and pelvis is likely related to the indwelli ng peritoneal dialysis catheter. The tip of the catheter is within the central pelvis. Gas within the bladder is likely from recent instrumentation. There is bladder wall thickening. This may be chronic . The spleen is mildly enlarged. There is extensive vascular calcification including calcified plaque within the abdominal aorta and branch vessels. Liver, adrenal glands, pancreas and left kidney are u nremarkable. A 2.4 cm low-attenuation right lower pole renal lesion is noted. This measures above ila er attenuation and has minimal peripheral calcification was shown to represent a cyst on prior ultras ound. There is no hydronephrosis. There is no evidence for a bowel obstruction. There is a moderate a mount of stool within the rectum. There is no lymphadenopathy. There are no fluid collections within the abdomen or pelvis. There are postoperative findings within the bilateral groins. The appendix is unremarkable. IMPRESSION: 1. No acute process within the abdomen or pelvis. 2. No bowel obstruction. No bowel wall thickening. Normal appendix. Moderate amount of stool within t he rectum. 3. Gas within the bladder. This could be correlated with history of recent instrumentation. 4. Trace fluid within the abdomen and pelvis, likely related to indwelling peritoneal dialysis cathet er. 5. Extensive vascular calcification. 6. Mild splenomegaly. ACT 112: Negative or not required by law. Electronically signed by: Tyrone Pearson M.D. 10/10/2024 12:59 PM
--- NOTE | 2024-10-10 13:06 | Nephrology Consultation ---
Date of Consultation October 10, 2024 Assessment & Plan (1) ESRD on peritoneal dialysis: patient does not have much residual renal function left as he makes only about half a cup of urine per day. he has been doing peritoneal dialysis through a nocturnal cycler at home for the last few months. Previously was on hemodialysis. ESRD secondary to diabetes hypertension and chronic diffuse vascular disease. he has evidence of fluid overload on lower extremity exam as well as lung exam and chest x-ray. his mucous membrane appears dry-- patients with severe chronic medical problems like him always have dry mucous membrane because of salivary gland atrophy and lack of saliva production. So as a result this finding is completely useless to determine volume status in patient like him. would stop IV fluid. In any case his blood pressure was high for tonight we will do all 2.5% and do 2500 mL fill volume over 10-12 hours. did explain the patient as well as his that because he is in the hospital there will be some changes with both the volume and the duration and the type of fluid will be using based on his clinical situation. we will also check the PD fluid for Gram stain as well as cell count and culture given fever and elevated white count. However patient does not have any abdominal pain so it is unlikely (2) Sepsis: he clearly has infection somewhere given his high-grade fever with chills and rigors [place] [id number]. source of infection not exactly clear but he has multiple potential source including osteomyelitis diskitis given focal back pain as well as respiratory tract infection given increased cough with sputum and shortness of breath. blood and urine culture pending but he is already on broad-spectrum antibiotics including Zosyn and vancomycin which should cover most of the potential source. given total lack of abdominal pain PD related peritonitis is very very unlikely but we will still send the fluid for g stain and culture to rule out PD peritonitis. Plan total time spent 58 minutes History of Present Illness Reason for Consultation: peritoneal dialysis patient admitted with fever History of Present Illness 64-year-old male with longstanding diabetes with ESRD previously on hemodialysis but currently on peritoneal dialysis through cycler at night. she is followed by my colleague Dr. Justyna Mathew. patient is a poor historian but his was present and give me all the details. patient had high-grade fever with chills and rigors and was increasingly more lethargic and confused. He was also complaining of focal back pain as well as cough and occasionally with thick sputum but mostly dry. also noted to be slightly more short of breath than usual and more edema than usual. symptoms escalated over the last 3 days. patient has chronic severe medical problems: CAD, HTN history of complete heart block, s/p pacemaker insertion, aortic valve, bicuspid, history of PE, peripheral vascular disease, s/p left great toe amputation,chronic left 2nd and 3rd toe wound, left well-healed heel ulcer, dry gangrene of right hand. he makes very little urine currently. As per about half glass per day. patient was febrile at 39.4 and the Emergency Department [place] [id number]. currently getting broad-spectrum antibiotics including cefepime Zosyn and vancomycin. cultures have been drawn. Is also getting CT chest abdomen and pelvis. we are also doing PD fluid for analysis given fever and elevated white count. review of systems as detailed in HPI unless stated otherwise 12 systems reviewed and negative Physical Exam Physical Exam: General: awake, alert, no apparent distress, + somewhat confused, very poor historian but fills in the clinical details Head: Normocephalic, atraumatic ENT: mucous membranes dry Chest: Clear to auscultation, on room air. Cardiac: Regular rate and rhythm, + loud holosystolic murmur, no JVD, normal peripheral pulses, good capillary refill Abdominal: soft not distended and not tender at all. PD exit site normal- appearing Extremities: +2 peripheral edema, chronic skin changes s/p great toe amputations bilaterally - he does have injuries to the left 2nd and 3rd toe which are bloody. + dry gangrene involving the Right 4th and 5th fingers Psych: Flat mood and affect Allergies Allergy/AdvReac Type Severity Reaction Status Date / Time daptomycin Allergy Rash Verified 10/10/24 09:48 Home Medications Medication Instructions Recorded Confirmed Type atenolol 50 mg tablet 50 mg PO QAM 03/07/20 10/10/24 History atorvastatin 40 mg tablet 80 mg PO QPM 03/07/20 10/10/24 History clopidogrel 75 mg tablet 75 mg PO HS 03/07/20 10/10/24 History insulin aspart U-100 100 unit/mL 1 sliding scale dose subcut UD 03/07/20 10/10/24 History (3 mL) subcutaneous pen (Novolog FlexPen U-100 Insulin aspart) insulin glargine 100 unit/mL (3 20 unit subcut BID 03/07/20 10/10/24 History mL) subcutaneous pen (Basaglar KwikPen U-100 Insulin) aspirin 81 mg tablet,delayed 81 mg PO DAILY 11/01/21 10/10/24 History release cholecalciferol (vitamin D3) 25 25 mcg PO .3X WEEK 11/01/21 10/10/24 History mcg (1,000 unit) tablet (Vitamin D3) acetaminophen 500 mg tablet 500 - 1,000 mg PO UD PRN Pain 10/10/24 10/10/24 History amlodipine 5 mg tablet 2.5 mg PO QAM 10/10/24 10/10/24 History gabapentin 600 mg tablet 600 mg PO TID 10/10/24 10/10/24 History torsemide 100 mg tablet 100 mg PO DAILY 10/10/24 10/10/24 History Patient History Medical History Amputation of left great toe Osteomyelitis Hallux abducto valgus, bilateral Amputated great toe of right foot Diabetes mellitus with neuropathy Diabetic peripheral neuropathy Callus Surgical History History of revascularization procedure of lower extremity Social History Smoking Status: Former smoker Hx Alcohol Use: No Hx Substance Use: No Preferred Language: Icelandic Visual Impairment: Limited Hearing Ability: Normal Marketing Performance Analyst Required: No Beliefs That Will Affect Care: None marital status: Current Living Situation: Spouse current occupational status: employed 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 Feels Safe at Home: Yes Diet: diabetic caffeine: Yes Physical Activity Frequency: Daily Do you think of yourself as: straight/heterosexual Gender Identity: Male Assistive Devices: Cane, Glasses and Special Shoe Results & Data Vital Signs (Past 12 Hours) Vital Signs Temp Pulse Pulse Resp BP BP Pulse Ox 10/10/24 12:07 10/10/24 12:04 138/68 10/10/24 11:51 79 20 96 10/10/24 11:06 85 23 110/58 L 97 10/10/24 10:45 84 23 96 10/10/24 10:08 92 H 20 161/70 H 97 10/10/24 10:03 90 27 H 161/70 H 97 10/10/24 09:37 96 H 10/10/24 09:01 97 10/10/24 09:01 39.4 C H 94 H 16 149/80 H 97 O2 Del Method 10/10/24 12:07 Room Air 10/10/24 12:04 10/10/24 11:51 10/10/24 11:06 10/10/24 10:45 10/10/24 10:08 Room Air 10/10/24 10:03 10/10/24 09:37 10/10/24 09:01 Room Air 10/10/24 09:01 Room Air Laboratory Results CBC renal panel Diagnostic Findings chest x-ray
--- NOTE | 2024-10-10 15:16 | Pharmacy Report ---
Pharmacy PK ABX Note - Date of Service October 10, 2024 - Assessment and Plan Assessment * 64 year old M receiving pip/tazo and vancomycin empirically, possibly ?SBP. * PMH: peritoneal dialysis, T2DM, pacemaker, chronic L 2nd and 3rd toe wounds, prior L great toe amputation * Pertinent microbiologic data includes: * Blood cultures: pending * Abdomen culture: pending * Day # 1 of antibiotics Plan Vancomycin * Loading dose: 2750 mg IV x 1 (already ordered/administered) * Random level ordered for: 10/11 AM Pharmacy will continue to follow and will adjust dose/frequency as necessary. Thank you. Pharmacy has transitioned to AUC monitoring for vancomycin. AUC/KEVIN is the preferred PK/PD target and is associated with decreased risk of nephrotoxicity compared to traditional trough targets.
[2024-10-10] MEDS ORDERED: GLUCAGON FOR INJ 1 MG VIAL SQ PRN (15:31)
[2024-10-10] MEDS ORDERED: GLUCOSE 40% GEL 15 GM TUBE PO PRN (15:31)
[2024-10-10] MEDS ORDERED: GLUCOSE 10 TAB/TUBE PO PRN (15:31)
[2024-10-10] MEDS ORDERED: CARBOHYDRATES FOR HYPOGLYCEMIA PO PRN (15:31)
[2024-10-10] MEDS ORDERED: INSULIN ASPART PER UNIT CHARGE SC SCH (15:31)
[2024-10-10] MEDS ORDERED: DEXTROSE 50% 50 ML SYRINGE IV PRN (15:31)
--- NOTE | 2024-10-10 15:36 | Pharmacy Report ---
Pharmacy Glycemic Short Note 2 - Date of Service October 10, 2024 - Glycemic Short BSG Results (Last 24 hours): 10/10/24 10/10/24 10/10/24 09:41 09:53 12:19 Glucose 451 H* POC Glucose 450 H* POC Glucose (other) 423 H* 10/10/24 12:20 Glucose POC Glucose 419 H* POC Glucose (other) OUTPATIENT ANTIDIABETIC REGIMEN: * NovoLog 5 units SQ QAM, 10 units @ noon, 10 units in afternoon, CF 20 >140mg/dL * Lantus 20 untis SQ BID * HbA1c is unreliable in ESRD patients d/t interactions between the A1c analyzing technique and high levels of urea in ESRD, reduced RBC life span, iron deficiency anemia, and EPO administration. HbA1c > 7.5% in ESRD patient may overestimate the extent of hyperglycemia in ESRD patients. ASSESSMENT: * Otto is a 64 year old male admitted with sepsis and a history of type 2 diabetes mellitus complicated by ESRD on PD. Pharmacy has been consulted to assist with glycemic management while inpatient. * BSG upon admission elevated, missed morning insulin per H&P, likely cause of hyperglycemia. Stat correctional and basal insulin ordered. * Will initiate basal scale up to a weight based stress of 2 and Lantus at about a weight based stress of 2. PLAN FOR INPATIENT GLYCEMIC CONTROL: * Hold outpatient oral diabetes medications * Basal insulin * Lantus 20 units SQ now STA * Lantus 0-20 units SQ BID * Bolus insulin * NovoLog per scale ACHS or Q6hrs while NPO * Goal Range: Low 110 mg/dL - High 140 mg/dL * Correction Factor: 25 mg/dL/unit * Nutritional / Prandial insulin per carb ratio of 1 unit per 8 grams CHO consumed
[2024-10-10 16:20] LABS: Appearance Peritoneal Fluid Clear; Color Peritoneal Fluid Pale Yellow; RBC Peritoneal Fluid Auto < 2000 /uL; WBC Peritoneal Fluid Auto 32 /ul (0-300)
[2024-10-10] MEDS: INSULIN ASPART PER UNIT CHARGE SC SCH (16:24)
[2024-10-10] MEDS: CHOLECALCIFEROL 25 MCG (1000 UNITS) TAB PO SCH (16:25)
[2024-10-10] MEDS: GABAPENTIN 600 MG TAB PO SCH (16:25)
--- NOTE | 2024-10-10 17:21 | Podiatry Consultation ---
Date of Consultation October 10, 2024 Assessment & Plan (1) 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: Diabetic foot ulcer location: toe Diabetes mellitus type: type 2 Laterality: left Qualified Code(s): E11.621 - Type 2 diabetes mellitus with foot ulcer; L97.524 - Non-pressure chronic ulcer of other part of left foot with necrosis of bone (2) Chronic osteomyelitis: (3) Sepsis: (4) Peripheral vascular disease: Plan Patient was examined and evaluated. Chart and imaging reviewed. We discussed the likelihood that these toe ulcerations, specifically the third, could be leading to his sepsis via acute osteomyelitis. If this is the case, he would benefit from either 6-8 weeks of IV antibiotics versus 3rd toe amputation. He does have significant history of lower extremity peripheral arterial disease and has had stenting in the last year on the right, but his family is unsure of the continued blood flow to either limb. [facility] [place] for these procedures. We will order MRI to evalute for any acute changes to the third toe, with no strong evidence of osteomyelitis on plain film imaging. He would benefit from a vascular consult to assess his vascular inflow; this could help determine future healing potential for this wound and/or amputation. He will consider his options, of either IV antibiotics or amputation, with more definitive imaging pending. Will continue to follow. Thank you for the consult. History of Present Illness Reason for Consultation: Left toe ulcerations Attending Physician: Triston Coker MD History of Present Illness Patient seen at bedside with family present. States that he has a history of peripheral arterial disease and neuropathy from type 2 diabetes, leading to prior infection and amputation of both great toes. More recently, he has been in podiatric care outpatient for treatment of wounds to his left third toe. Now, since increasing back pain led to weakness over the weekend, he admits to a tr aumatic injury of this affected third toe and, now, the second toe. He believes he has seen his outpatient foot and ankle specialist for this third toe wound in the last month but is unsure of the exact timing. Now, with the back pain, weakness, and increasing signs of systemic infection, with the presence of these foot wounds, he sought inpatient treatment at the hospital. He does admit to being more alert currently than even a few hours ago, which his family confirms. Still, he is not at his baseline cognition. Allergies Allergy/AdvReac Type Severity Reaction Status Date / Time daptomycin Allergy Rash Verified 10/10/24 09:48 Home Medications Medication Instructions Recorded Confirmed Type atenolol 50 mg tablet 50 mg PO QAM 03/07/20 10/10/24 History atorvastatin 40 mg tablet 80 mg PO QPM 03/07/20 10/10/24 History clopidogrel 75 mg tablet 75 mg PO HS 03/07/20 10/10/24 History insulin aspart U-100 100 unit/mL 1 sliding scale dose subcut UD 03/07/20 10/10/24 History (3 mL) subcutaneous pen (Novolog FlexPen U-100 Insulin aspart) insulin glargine 100 unit/mL (3 20 unit subcut BID 03/07/20 10/10/24 History mL) subcutaneous pen (Basaglar KwikPen U-100 Insulin) aspirin 81 mg tablet,delayed 81 mg PO DAILY 11/01/21 10/10/24 History release cholecalciferol (vitamin D3) 25 25 mcg PO .3X WEEK 11/01/21 10/10/24 History mcg (1,000 unit) tablet (Vitamin D3) acetaminophen 500 mg tablet 500 - 1,000 mg PO UD PRN Pain 10/10/24 10/10/24 History amlodipine 5 mg tablet 2.5 mg PO QAM 10/10/24 10/10/24 History gabapentin 600 mg tablet 600 mg PO TID 10/10/24 10/10/24 History torsemide 100 mg tablet 100 mg PO DAILY 10/10/24 10/10/24 History Patient History Medical History Amputation of left great toe Osteomyelitis Hallux abducto valgus, bilateral Amputated great toe of right foot Diabetes mellitus with neuropathy Diabetic peripheral neuropathy Callus Surgical History History of revascularization procedure of lower extremity Social History Smoking Status: Former smoker Tobacco Type: Smokeless Tobacco (Dip or Chew) Do You Dip or Chew Tobacco: Yes; Tobacco Cessation Education Requested by Patient: No Hx Alcohol Use: Yes Alcohol type: beer Hx Substance Use: No Preferred Language: Indonesian Communication Ability: Effective Visual Impairment: Limited Hearing Ability: Normal Chemical Machine Tender Required: No Beliefs That Will Affect Care: None marital status: Current Living Situation: Spouse current occupational status: employed 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 Feels Safe at Home: Yes Safety Concerns: Feels Safe At This Time Diet: diabetic caffeine: Yes Physical Activity Frequency: Daily Do you think of yourself as: straight/heterosexual Gender Identity: Male Assistive Devices: Glasses, Walker and Wheelchair Review of Systems Review of Systems: All systems reviewed & are unremarkable except as noted in HPI & below Constitutional: + fever, + chills, + sweats, + fatigue a nd + weakness Eyes: no problem reported Ear, Nose, Mouth, Throat: no problem reported Respiratory: no problem reported Cardiovascular: + edema; no problem reported Gastrointestinal: + nausea; no vomiting and no problem rep orted Musculoskeletal: + muscle weakness; no problem reported Integumentary: + skin ulcer, + wounds and + erythema Neurologic: + loss of sensation, + numbness and + pa resthesia; no generalized weakness Psychiatric: + confusion Physical Exam Physical Exam: Lower extremity focused exam: DP/PT pulses nonpalpable. CFT brisk to the digits. Advanced trophic changes noted to b/l lower extremity. Prior well healed 1st ray resections noted. Now, chronic ulcers noted to left 2nd and 3rd toes. The second toe ulcer is 1cm in diameter of dry stable eschar with no drainage or bleeding. No local cellulitis. The third toe wound is more concerning, with small 2mm ulceration overlying the nail bed with this central wound likely probing directly to bone. There is scant purulence with no active bleeding. Pain is noted on palpation and clinical exam. Constitutional: WD/WN, vitals as above + ill appearing and + morbidly obese; no acute distress Eyes: PERRL, conjunctivae normal, anicteric sclerae ENMT: external ear and nose normal, oropharynx normal Mouth: + poor dentition Neck: trachea midline, no thyromegaly normal visual inspection Respiratory: normal respiratory effort; no respiratory distress Cardiovascular: Rate/Rhythm: regular rate and regular rhythm Vessels: + posterior tibial pulses abnormal and + dorsalis pedis pulses abnormal Chest (Breasts): Chest: normal inspection of chest Gastrointestinal (Abdomen): Inspection/Auscultation: abdomen normal to inspection Percussion/Palpation: + abdomen tender and abdomen soft Musculoskeletal: no cyanosis or clubbing, extremities motor strength 5/5 Head/Neck/Chest: normocephalic and head atraumatic Extremities: extremities normal to inspection Skin: + ulcer, + wound, + erythema and + nails dystrophic Neurologic: moves all extremities, awake and + confused; + abnormal sensation to monofilament and no focal motor deficits Psychiatric: A+Ox3, euthymic affect Results & Data Vital Signs (Past 12 Hours) Vital Signs Temp Pulse Pulse Resp BP BP Pulse Ox 10/10/24 16:45 36.5 C 81 18 160/79 H 10/10/24 15:31 10/10/24 15:00 36.3 C L 88 18 167/90 H 94 10/10/24 12:07 10/10/24 12:04 138/68 10/10/24 11:51 79 20 96 10/10/24 11:06 85 23 110/58 L 97 10/10/24 10:45 84 23 96 10/10/24 10:08 92 H 20 161/70 H 97 10/10/24 10:03 90 27 H 161/70 H 97 10/10/24 09:37 96 H 10/10/24 09:01 97 10/10/24 09:01 39.4 C H 94 H 16 149/80 H 97 O2 Del Method 10/10/24 16:45 10/10/24 15:31 Room Air 10/10/24 15:00 Room Air 10/10/24 12:07 Room Air 10/10/24 12:04 10/10/24 11:51 10/10/24 11:06 10/10/24 10:45 10/10/24 10:08 Room Air 10/10/24 10:03 10/10/24 09:37 10/10/24 09:01 Room Air 10/10/24 09:01 Room Air
[2024-10-10 17:47] LABS: Anion Gap 14.0 (3-11); Blood Urea Nitrogen 59.0 mg/dl (6-23); Calcium 8.2 mg/dl (8.6-10.3); Carbon Dioxide 23.0 mmol/L (21-32); Chloride 96.0 mmol/L (98-107); Creatinine Clr Calc Pharmacy 14.5 ml/min; Potassium 3.4 mmol/L (3.5-5.1); Sodium 133.0 mmol/L (136-145)
[2024-10-10] MEDS: MUPIROCIN 2% OINT 22 GM TUBE EXT SCH (18:17)
[2024-10-10] MEDS: PIPERACILLIN/TAZOBACTAM 4.5 GM/100 ML BAG IV SCH (20:23)
[2024-10-10] MEDS: CLOPIDOGREL BISULFATE 75 MG TAB PO SCH (20:24)
[2024-10-10] MEDS: ATORVASTATIN 40 MG TAB PO SCH (20:25)
[2024-10-10] MEDS: ACETAMINOPHEN 325 MG TAB PO PRN (20:32)
[2024-10-10] MEDS: LANTUS PER UNIT CHARGE SC SCH (20:50)
[2024-10-10] MEDS ORDERED: NON-FORMULARY MEDICATION (Insulin Glargine [Basaglar Kwikpen U-100 Insulin] 100 unit/mL (3 SQ SCH (21:00)
[2024-10-10 21:10] LABS: A calco-baum cmplx NotReported Not Detected (NotDetected); Bact fragilis Not Reported Not Detected (NotDetected); Blood Culture Id Panel See PCR Comment (NotDetected); C auris Not Reported Not Detected (NotDetected); Calbicans Not Reported Not Detected (NotDetected); Candida glabrata Not Reported Not Detected (NotDetected); Candida krusei Not Reported Not Detected (NotDetected); Cneoformans/gatti Not Reported Not Detected (NotDetected); Cparapsilosis Not Reported Not Detected (NotDetected); Ctropicalis Not Reported Not Detected (NotDetected); E cloacae compx Not Reported Not Detected (NotDetected); Efaecalis Not Reported Not Detected (NotDetected); Efaecium Not Reported Not Detected (NotDetected); Enterobacterales Not Reported Not Detected (NotDetected); Escherichia coli Not Reported Not Detected (NotDetected); H influenzae Not Reported Not Detected (NotDetected); K aerogenes Not Reported Not Detected (NotDetected); Koxytoca Not Reported Not Detected (NotDetected); Kpneumoniae grp Not Reported Not Detected (NotDetected); Lmonocyt Not Reported Not Detected (NotDetected); N meningitidis Not Reported Not Detected (NotDetected); P aeruginosa Not Reported Not Detected (NotDetected); Proteus spp Not Reported Not Detected (NotDetected); Salmonella spp Not Reported Not Detected (NotDetected); Staph lugdunensis Not Reported Not Detected (NotDetected); Staph spp. Not Reported DETECTED (NotDetected); Staphaureus Not Reported DETECTED (NotDetected); Staphepi Not Reported Not Detected (NotDetected); Stenmaltophilia Not Reported Not Detected (NotDetected); Strep agal(GrpB) Not Reported Not Detected (NotDetected); Strep pneum Not Reported Not Detected (NotDetected); Strep pyog (GrpA) Not Reported Not Detected (NotDetected); Strep spp Not Reported Not Detected (NotDetected); mecAC+MREJ Resistant Gene MRSA Not Detected (NotDetected)
[2024-10-10 21:15] LABS: Staphylococcus spp. DETECTED (NotDetected)
[2024-10-11] MEDS: INSULIN ASPART PER UNIT CHARGE SC SCH (00:27)
[2024-10-11 04:40] LABS: Hematocrit (blood only) 32.1 % (42.0-52.0); Hemoglobin 10.9 g/dl (14.0-18.0); Mean Corpuscular Hemoglobin 31.4 pg (25.0-34.0); Mean Corpuscular Volume 92.5 fL (80.0-100.0); Platelet Count 137 K/uL (130-400); RDW Standard Deviation 46.1 fL (36.4-46.3); Red Blood Count 3.47 M/uL (4.70-6.10); White Blood Count 15.54 K/ul (4.8-10.8)
[2024-10-11 05:03] LABS: Anion Gap 11.0 (3-11); Blood Urea Nitrogen 60.0 mg/dl (6-23); Calcium 8.3 mg/dl (8.6-10.3); Carbon Dioxide 26.0 mmol/L (21-32); Chloride 97.0 mmol/L (98-107); Creatinine Clr Calc Pharmacy 12.8 ml/min; Glucose 229.0 mg/dl (70-99(Fasting)); Potassium 3.4 mmol/L (3.5-5.1); Sodium 134.0 mmol/L (136-145)
[2024-10-11 06:49] LABS: Lymphocytes, Fluid 2 %; Mono,Macrophage,Mesothelial 80 %; Neutrophils, Fluid 18 %
[2024-10-11 07:43] LABS: Hemoglobin A1C 7.6 % (4.5-5.6)
[2024-10-11] MEDS ORDERED: VANCOMYCIN CONSULT ACTIVE PRN (07:44)
--- NOTE | 2024-10-11 09:23 | Dialysis Progress Note ---
Date of Service October 11, 2024 Assessment & Plan Admission and Anticipated Discharge Date Admission Date: October 10, 2024 Subjective Assessment & Plan (1) ESRD on peritoneal dialysis: patient does not have much residual renal function left as he makes only about half a cup of urine per day. he has been doing peritoneal dialysis through a nocturnal cycler at home for the last few months. Previously was on hemodialysis. ESRD secondary to diabetes hypertension and chronic diffuse vascular disease. he has evidence of fluid overload on lower extremity exam as well as lung exam and chest x-ray. his mucous membrane appears dry-- patients with severe chronic medical problems like him always have dry mucous membrane because of salivary gland atrophy and lack of saliva production. So as a result this finding is completely useless to determine volume status in patient like him. labs appear acceptable. For tonight we will again do all 2.5% and do 2500 mL fill volume over 10-12 hours. did explain the patient as well as his that because he is in the hospital there will be some changes with both the volume and the duration and the type of fluid will be using based on his clinical situation. (2) Sepsis: Blood C/s growing GPC. Concerning with Pacemaker. PD fluid negative for peritonitis. No need of IP abx but will continue IV. S----Seen for PD. NO issues with PD overnight. net UF was 1600 ml. He feels better. No fever now. Blood C/s Grew GPC. PD fluid negative for Peritonitis review of systems as detailed in HPI unless stated otherwise 12 systems reviewed and negative Physical Exam Physical Exam: General: awake, alert, no apparent distress, less confused, Chest: Clear to auscultation, on room air. Cardiac: Regular rate and rhythm, + loud holosystolic murmur, no JVD, normal peripheral pulses, good capillary refill Abdominal: soft not distended and not tender at all. PD exit site normal- appearing Extremities: +2 peripheral edema, chronic skin changes s/p great toe amputations bilaterally - he does have injuries to the left 2nd and 3rd toe which are bloody. + dry gangrene involving the Right 4th and 5th fingers Psych: Flat mood and affect Results & Data Vital Signs (Past 12 Hours) Vital Signs Temp Pulse Pulse Resp BP Pulse Ox O2 Del Method 10/11/24 08:41 36.8 C 81 18 10/11/24 07:00 36.6 C 85 18 131/75 99 Room Air 10/11/24 03:43 37.1 C 79 18 138/79 93 Room Air 10/10/24 23:25 36.8 C 72 20 128/57 L 94 Room Air 10/10/24 22:03 80
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
--- NOTE | 2024-10-11 11:06 | Pharmacy Report ---
Pharmacy Glycemic Short Note 2 - Date of Service October 11, 2024 - Glycemic Short BSG Results (Last 24 hours): 10/10/24 10/10/24 10/10/24 12:19 12:20 16:02 Glucose POC Glucose 450 H* 419 H* 345 H* Fasting Glucose 10/10/24 10/10/24 10/10/24 16:03 17:06 20:48 Glucose POC Glucose 349 H* 292 H Fasting Glucose 301 H* 10/11/24 10/11/24 10/11/24 00:14 04:03 04:34 Glucose 229 H POC Glucose 300 H 218 H Fasting Glucose 10/11/24 10/11/24 07:02 10:52 Glucose POC Glucose 206 H 162 H Fasting Glucose OUTPATIENT ANTIDIABETIC REGIMEN: * NovoLog 5 units SQ QAM, 10 units @ noon, 10 units in afternoon, CF 20 >140mg/dL * Lantus 20 untis SQ BID * HbA1c is unreliable in ESRD patients d/t interactions between the A1c analyzing technique and high levels of urea in ESRD, reduced RBC life span, iron deficiency anemia, and EPO administration. HbA1c > 7.5% in ESRD patient may overestimate the extent of hyperglycemia in ESRD patients. ASSESSMENT: 10/11 * Stressors stable. Confirmed MSSA bacteremia * BSG's trending down, although a little slowly. * Will maintain Lantus. Home dose at upper end of range but will titrate down if/when BSG's decrease into goal range to avoid further reduction in BSG * Will maintain Novolog as-is, unless see trend up in BSG's at lunch today. If trends up, will tighten CF and/or CR slightly 10/10 * Otto is a 64 year old male admitted with sepsis and a history of type 2 diabetes mellitus complicated by ESRD on PD. Pharmacy has been consulted to assist with glycemic management while inpatient. * BSG upon admission elevated, missed morning insulin per H&P, likely cause of hyperglycemia. Stat correctional and basal insulin ordered. * Will initiate basal scale up to a weight based stress of 2 and Lantus at about a weight based stress of 2. PLAN FOR INPATIENT GLYCEMIC CONTROL: * Hold outpatient oral diabetes medications * Basal insulin * Lantus 0-20 units SQ BID * Bolus insulin * NovoLog per scale ACHS or Q6hrs while NPO * Goal Range: Low 110 mg/dL - High 140 mg/dL * Correction Factor: 25 mg/dL/unit * Nutritional / Prandial insulin per carb ratio of 1 unit per 8 grams CHO consumed
--- NOTE | 2024-10-11 11:31 | Cardiology Consultation ---
Date of Consultation October 11, 2024 Assessment & Plan (1) Sepsis: (2) Staphylococcus aureus bacteremia with sepsis: (3) S/P cardiac pacemaker procedure: (4) S/P AVR (aortic valve replacement): (5) CAD (coronary artery disease): Plan Patient admitted with febrile illness, staph bacteremia on BC x2 with elevated lactate and WBC also noted on admission. Multiple sources of infection possible. He has chronic LE wounds, recent foot injury and possible infection. Also with ongoing acute back pain x3 days. MRI of the spine and foot pending. He has right upper extremity gangrene (chronic) but no recent imaging - would consider possible source of infection as well - consider MRI of the right hand. Chest CTA with possible area of consolidation/pneumonia. Started on broad spectrum antibiotics. Minimally elevated troponin noted on arrival. No anginal complaints. Echo with preserved LVEF, no wall motion abnormalities. AVR with normal gradients but leaflets not well visualized. Unable to r/o vegetation. Recommend ANI morning of 10/12. NPO after midnight. ESRD on PD -No sign of infection per peritoneal fluid CAD - no anginal complaints and normal LVEF -continue current medications including ASA, statin, Plavix. -antihypertensives (atenolol and amlodipine) and diuretic on hold due to risk of hypotension with sepsis. PVD -history of significant vascular disease on dual antiplatelet therapy -S/P REIA stent, R SFA/pop lithotripsy/angioplasty (for occlusion), R PT/peroneal angioplasty by on 07/08/24. -He had recent stent and intervention in June 2024 - continue ASA/Plavix. Device interrogated with appropriate function. Adjustments made by [employer] [facility] [facility] to proceed with MRI. Further recommendations pending additional imaging studies and ANI. It is likely patient will need transferred to tertiary care center for removal of his pacemaker given staph bacteremia. Case discussed with Dr. Stanley I spent a total of 60 minutes on the date of service in preparation, delivery, and documentation of the care provided to this patient, excluding any time spent in the performance of separately billed services. Marietta Nixon PA-C Department of Cardiology, [facility] This chart was completed in part utilizing Speech Voice Recognition Software. Grammatical errors, random word insertions, pronoun errors, and incomplete sentences are an occasional consequence of this system due to software limitations, ambient noise, and hardware issues. Any formal questions or concerns about the content, text, or information contained within the body of this dictation should be directly addressed to the provider for clarification. Supervising Physician Co-Signing Physician Notes Attending attestation: Case reviewed with the advanced practitioner. I have personally performed a history and physical examination on the patient. I have reviewed the advanced practitioner's documentation on the date of service referenced in note, and I agree with, and take responsibility for the plan of care. Subjective: Patient describes having presented to the hospital due to new onset severe low back pain and rigors chills of 2 days in duration. He was hyperglycemic at home and became ill to the point that he was unable to walk. His significant other had to call the fire department to help get him up off the floor. He had associated shortness of breath at that time but it has since passed. Exam: Refer to Damir Nixon PA-C 's exam CV: Regular rhythm, no murmur Left infraclavicular pacemaker pocket clean dry and intact, without erythema Data: MRI of the left foot performed today with findings of acute osteomyelitis of the 2nd and 3rd toe MRI of the lumbar spine without any findings to suggest acute osteomyelitis Echocardiogram performed today revealed normal LVEF, prosthetic aortic valve gradients within normal limits. No evidence of valvular vegetation, or vegetation on pacemaker leads within SCUBA limitation of the transthoracic study. Impression/ Plan: 64-year-old male with history of end-stage renal disease, on peritoneal dialysis. A year ago in August, he underwent CABG x 2 and surgical aortic valve replacement with a bioprosthesis. Postoperative course was complicated by symptomatic bradycardia prompting implantation of dual-chamber Medtronic permanent pacemaker during that hospital stay with right atrial and left bundle leads. In the interim, he has had multiple invasive procedures including placement of a peritoneal dialysis catheter. Placement of a right upper extremity AV fistula with subsequent steal syndrome and development of gangrenous changes to the right 4th and 5th digits. Percutaneous revascularization of the right lower extremity which was described in the vascular surgery notes is a limb salvage procedure. Patient denies any oral discomfort and had dental work performed preoperatively before his aortic valve replacement. Patient found to have Staph aureus on 2/2 initial blood cultures. * Multiple potential sources of infection, seeding to prosthetic aortic valve, pacemaker leads not excluded * Case discussed with Dr. Webster of podiatry who had assessed the patient just before my arrival. Agree with plans for amputation of the left 2nd and 3rd toes due to findings of osteomyelitis and I think this is important to perform sooner rather than later for the purpose of potential source control. * The right hand / 4th and 5th digits have findings of chronic dry gangrene. Question if this is another potential source. * Patient stable from a cardiac perspective to proceed with podiatry surgery/amputation of the 2nd and 3rd toes tentatively planned for tomorrow 10/12/2024. * Will tentatively plan for transesophageal echocardiogram the next day 10/13/2024 * Aspirin currently on hold, continue clopidogrel due to complex lower extremity revascularization with interruption * Pacemaker was interrogated with the assistance of the [employer] sales service representative. The generator longevity is stable and device function is normal. The left bundle lead pacing was changed from unipolar to bipolar for the purpose of additional safety to allow for MRI procedure * Predominant rhythm is sinus rhythm with atrial sensing and ventricular pacing, however he does not appear to be pacemaker dependent and has an underlying rhythm * Continue Cefazolin 1000 mg IV every 24 hours * Will continue to follow patient. Further recommendations will be forthcoming. I spent a total of 30 minutes coordinating, documenting, and providing care for this patient excluding time spent in the performance of separately billed services or time spent by another provider. Geronimo Stanley, History of Present Illness Reason for Consultation: Staph bacteremia sepsis Requesting Physician: Wilda Canoist Attending Physician: Dr. Stanley History of Present Illness Patient is a complex 64 year old male who presented to [facility] with complaints of fever and chills over the last few days. On arrival to [facility] he was found to be febrile. Etiology uncertain. Multiple possible sources of infection is known. Recent history of injury to the left 2nd and 3rd toe about 3 days ago with possible infection reported by patient. However, this new ulceration was noted in vascular notes on 09/23. Leukocytosis present on admission Lactate elevated on admission. Started on broad spectrum antibiotics. + blood cultures x2 on admission growing Staph aureus. Peritoneal fluid analysis not suggestive of infection Patient with ongoing back pain, currently having MRI of the spine. Also having MRI of the foot/toe. Device interrogated with appropriate function. Adjustments made by [employer] rep and now safe for MRI. No erythema around pacer site. Echo this morning with normal LVEF. Normal measurements of AVR, but unable to visualize leaflets to r/o vegetation. He has chronic right upper extremity gangrene of the 4th/5th digits. No recent imaging. No chest pain or SOB reported on admission. EKG with chronic atrial sensing/ventricular pacing rhythm. Elevated troponin noted around 200. Normal LVEF, no wall motion abnormalities. No anginal complaints. At time of consult, patient returning from MRI's. He feels "ok". No recurrent fevers. No chest pain or dyspnea. Ongoing back pain reported, which is his primary complaint currently. No orthopnea, PND or edema. No cough. History includes: 1.Severe s/p AVR in August 2023 2. CAD s/p CABGx2 at time of AVR (CLARK-LAD, Ao-LPL using reversed saphenous vein) 3. post op CHB requiring dual chamber pacemaker - Medtronic device 09/22/24 4. ESRD now on PD 5.DM 2 6.CKD 4 7.Chronic Wound Infection with chronic osteomyelitis 8.PVD 9.Carotid Artery Stenosis 10.Hx TIA's. 11.Hx CVA -R occipital lobe CVA 04/2014 -L posterior frontal infarction MCA 2008 12.Former Smoker-Current Chewing Tobacco Use 13. Hx PE in the setting of Pneumonia 2010 -Treated with Coumadin for 3 months. Extensive vascular history (copied from Dr. Enrique's note on 09/23/24) HEMODIALYSIS ACCESS: LEFT HANDED S/P L-sided pacer. S/P R BBAVF creation by Dr. Enrique on 11/26/23; ligated 01/19/24 r/t steal - he traumatized his R hand when he ran his scooter into his tool box. Transitioned to PD (PD catheter placed 04/2024). 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 He has a complicated LE revasc/amputation history, to include: RIGHT: S/P R RELAY TESTER HELPER endarterectomy, R SFA/pop angioplasty/stenting, and R peroneal angioplasty by Dr. Loco on 03/13/2017 S/P R PT/peroneal angioplasty and R great toe amputation 05/03/[address] Loco. S/P R great toe amputation debridement 05/06/[address] Loco. S/P R LE angiogram 05/31/[address] Enrique. S/P R SFA ALEKS-angioplasty 07/04/[address] Enrique S/P REIA stent, R SFA/pop lithotripsy/angioplasty (for occlusion), R PT/peroneal angioplasty by on 07/08/24.. Current with R lateral heel ulcer. LEFT: S/P L RELAY TESTER HELPER/DFA Endarterectomy and L SFA stent by Dr. Loco on 09/04/14 S/P L SFA/pop angioplasty by Dr. Page on 06/26/20 S/P L EIA stenting, L pop lithotripsy, and L PT/peroneal angioplasty by Dr. Enrique on 05/31/21 S/P L hallux amputation 07/01/[address] Aguilar S/P L 1st ray amputation 08/08/[address] Aguilar. Currently with L 3rd toe ulcer Stroke Hx: He also experienced a left posterior frontal infarction in the MCA distribution in 2008, manifested by inability to spell a common word as well as a right centrum semiovale and right occipital lobe CVA 04/2014, manifested by left arm weakness that lasted several days before resolving. 04/2014 Carotid duplex showed < 50% carotid stenosis bilaterally (report scanned in epic). 10/2018 carotid duplex demonstrates less than 50% carotid stenosis B/L ICAs. Allergies Allergy/AdvReac Type Severity Reaction Status Date / Time daptomycin Allergy Rash Verified 10/10/24 09:48 Home Medications Medication Instructions Recorded Confirmed Type atenolol 50 mg tablet 50 mg PO QAM 03/07/20 10/10/24 History atorvastatin 40 mg tablet 80 mg PO QPM 03/07/20 10/10/24 History clopidogrel 75 mg tablet 75 mg PO HS 03/07/20 10/10/24 History insulin aspart U-100 100 unit/mL 1 sliding scale dose subcut UD 03/07/20 10/10/24 History (3 mL) subcutaneous pen (Novolog FlexPen U-100 Insulin aspart) insulin glargine 100 unit/mL (3 20 unit subcut BID 03/07/20 10/10/24 History mL) subcutaneous pen (Basaglar KwikPen U-100 Insulin) aspirin 81 mg tablet,delayed 81 mg PO DAILY 11/01/21 10/10/24 History release cholecalciferol (vitamin D3) 25 25 mcg PO .3X WEEK 11/01/21 10/10/24 History mcg (1,000 unit) tablet (Vitamin D3) acetaminophen 500 mg tablet 500 - 1,000 mg PO UD PRN Pain 10/10/24 10/10/24 History amlodipine 5 mg tablet 2.5 mg PO QAM 10/10/24 10/10/24 History gabapentin 600 mg tablet 600 mg PO TID 10/10/24 10/10/24 History torsemide 100 mg tablet 100 mg PO DAILY 10/10/24 10/10/24 History Patient History Medical History Amputation of left great toe Osteomyelitis Hallux abducto valgus, bilateral Amputated great toe of right foot Diabetes mellitus with neuropathy Diabetic peripheral neuropathy Callus Surgical History History of revascularization procedure of lower extremity Social History Smoking Status: Former smoker Tobacco Type: Smokeless Tobacco (Dip or Chew) Do You Dip or Chew Tobacco: Yes; Tobacco Cessation Education Requested by Patient: No Hx Alcohol Use: Yes Alcohol type: beer Hx Substance Use: No Preferred Language: Chilean Communication Ability: Effective Visual Impairment: Limited Hearing Ability: Normal Export Freight Clerk Required: No Beliefs That Will Affect Care: None marital status: Current Living Situation: Spouse current occupational status: employed 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 Feels Safe at Home: Yes Safety Concerns: Feels Safe At This Time Diet: diabetic caffeine: Yes Physical Activity Frequency: Daily Do you think of yourself as: straight/heterosexual Gender Identity: Male Assistive Devices: Glasses, Walker and Wheelchair Review of Systems Review of Systems: All systems reviewed & are unremarkable except as noted in HPI & below Physical Exam Constitutional: WD/WN, vitals as above average body habitus; no acute distress Neck: trachea midline, no thyromegaly Respiratory: normal respiratory effort, lungs clear to auscultation Cardiovascular: RRR, no murmur, no edema Gastrointestinal (Abdomen): normal bowel sounds, soft, nontender, no hepatosplenomegaly Skin: s/p left great toe amputation, With ulcerations of the 2nd, 3rd and 4th digits s/p right great toe amputation with - no open wounds right hand 4th and 5th digits , black, necrositic Neurologic: PERRL, EOMI, accommodation nl, no face palsy, no dysarthria Results & Data Vital Signs (Past 12 Hours) Vital Signs Temp Pulse Resp BP Pulse Ox O2 Del Method 10/11/24 10:54 36.6 C 77 18 122/69 97 Room Air 10/11/24 08:41 36.8 C 81 18 10/11/24 07:00 36.6 C 85 18 131/75 99 Room Air 10/11/24 03:43 37.1 C 79 18 138/79 93 Room Air Laboratory Results Cardiac Enzymes 10/10/24 10/10/24 Range/Units 12:07 17:06 Troponin I High Sens 239.3 H* 278.9 H* (0-20) pg/ml CBC 10/11/24 Range/Units 04:03 WBC 15.54 H (4.8-10.8) K/ul RBC 3.47 L (4.70-6.10) M/uL Hgb 10.9 L (14.0-18.0) g/dl Hct 32.1 L (42.0-52.0) % Plt Count 137 (130-400) K/uL Comprehensive Metabolic Panel 10/10/24 10/11/24 Range/Units 17:06 04:03 Sodium 133 L 134 L (136-145) mmol/L Potassium 3.4 L 3.4 L (3.5-5.1) mmol/L Chloride 96 L 97 L (98-107) mmol/L Carbon Dioxide 23 26 (21-32) mmol/L BUN 59 H 60 H (6-23) mg/dl Creatinine 6.63 H* 7.49 H* D (0.6-1.4) mg/dl Glucose 229 H (70-99(Fasting)) mg/dl Calcium 8.2 L 8.3 L (8.6-10.3) mg/dl Intake and Output 10/10/24 10/11/24 10/11/24 22:59 06:59 14:59 Intake Total 895 / 2345 100 / 2345 670 / 670 Output Total 1605 / 1605 Balance 895 / 2344 99 / 2344 -935 / -935 Intake: IV 655 / 2105 100 / 2105 Piperacillin/Tazobactam 4.5 gm 100 / 200 100 / 200 In 100 ml @ 25 mls/hr IV Q12H [facility] Rx#:[id number] Vancomycin HCl 2,750 mg In 555 / 555 Sodium Chloride 0.9% 500 ml @ 200 mls/hr IV NOW ONE Rx#: [id number] Oral 240 / 240 0 / 240 670 / 670 Output: Peritoneal Dialysis 1605 / 1605 Ultrafiltration Amount # Bowel Movements Other: Weight 105.035 kg 105.5 kg 105.5 kg Weight Measurement Method [facility] Built in [facility] Built in [facility] Patient Weight 10/12/24 06:59 Weight 105.5 kg Diagnostic Findings Telemetry reviewed: Atrial sensed, ventricular paced. occ PVC Device interrogation reviewed: Medtronic device - MRI compatible. Device interrogated by [employer] rep and adjustments made for MRI safe mode appropriate function and battery longevity at 11.1 years AP 10.2% PROFILER HAND 98.3% EKG: Atrial sensed, ventricular paced. occ PVC Echo reviewed Normal LVEF at 55-60% No wall motion abnormalities RV is not well visualized S/P AVR with 27 mm Avalus bioprosthetic valve Normal gradients No significant I. Moderate MAC No MR No MS Grade II diastolic dysfunction. Aortic valve prosthetic leaflets are not well visualized. No evidence of valvular vegetation within the scope of limitation of this imaging modality Consider ANI Chest X-Ray 10/10/24 09:30 XR chest 1V portable CLINICAL HISTORY: Sepsis COMPARISON STUDY: 05/22/2013 FINDINGS: There is an oval cavity pacemaker. There is mild cardiomegaly with mild pulmonary vascular congestion. No consolidation or pleural effusion. No pneumothorax. IMPRESSION: Mild CHF. ACT 112: Negative or not required by law. Electronically signed by: Prabhu Cordova M.D. 10/10/2024 9:[address] 10/10/24 11:26 CT SCAN OF THE CHEST WITH IV CONTRAST CLINICAL HISTORY: Evaluate for source of sepsis. COMPARISON STUDY: Chest CT May 23, 2013. Chest radiograph performed earlier today. TECHNIQUE: Following the IV administration of 94 cc of Optiray 320, CT scan of the thorax was performed from the thoracic inlet to the upper abdomen. Images are reviewed in the axial, sagittal, and coronal planes. IV contrast was administered without complication. A dose lowering technique was utilized adhering to the principles of ALARA. CT DOSE: 2399.59 mGy.cm FINDINGS: A left subclavian pacer is in place. There are are median sternotomy wires and postoperative findings from bypass grafting. Extensive coronary artery calcification is noted. Heart is mildly enlarged. There is no pericardial effusion. Prominent bilateral hilar lymph nodes are likely benign. There is no pneumothorax or pleural effusion. No consolidation is present. However, there are are multifocal cluster tree-in-bud nodules throughout the lungs. These were not present on prior CT. Additional small pulmonary nodules are noted, including a defibrillator right lower lobe nodule on image 151. The nodule was not clearly present on prior CT. A few additional smaller pulmonary nodules are unchanged. Central airways are patent. Abdomen and pelvis CT will be reported separately. IMPRESSION: 1. No consolidation. Multifocal clustered tree-in-bud nodules within the lungs. These favor an age indeterminate mild infectious or inflammatory process. A follow-up CT in 3 months to ensure resolution is recommended. 2. Scattered nodules throughout the lungs, a few of which are new since prior CT. These are low suspicion but should be assessed on follow-up CT. 3. Mild cardiomegaly. Extensive coronary artery calcification. Status post median sternotomy and bypass grafting. ACT 112: Negative or not required by law Electronically signed by: Tyrone Pearson M.D. 10/10/2024 12:51 PM Foot X-Ray 10/10/24 11:44 XR foot LT min 3V routine CLINICAL HISTORY: eval for fracture COMPARISON: 11/01/2021 FINDINGS: Stable amputation at the mid to distal aspect of the first metatarsal. Stable unfused ossicle adjacent to the medial navicular. No acute fr acture or dislocation seen. There are atherosclerotic calcifications. No evidence of osteomyelitis. No significant degenerative change seen. IMPRESSION: No acute fracture seen. ACT 112: Negative or not required by law. Electronically signed by: Prabhu Cordova M.D. 10/10/2024 12:27 PM Medications Administered Current Inpatient Medications Acetaminophen (Acetaminophen 325 Mg Tab) 650 mg PO Q4H PRN PRN Reason: Moderate Pain (Scale 4, 5, 6) Stop: 11/09/24 15:30 Last Admin: 10/10/24 20:32 Dose: 650 mg Atorvastatin Calcium (Atorvastatin 40 Mg Tab) 80 mg PO QPM ESTHER Stop: 11/09/24 20:59 Last Admin: 10/10/24 20:25 Dose: 80 mg Clopidogrel Bisulfate (Clopidogrel Bisulfate 75 Mg Tab) 75 mg PO HS ESTHER Stop: 11/09/24 20:59 Last Admin: 10/10/24 20:24 Dose: 75 mg Dextrose (Dextrose 50% 50 Ml Syringe) 25 - 50 ml IV UD PRN; Protocol PRN Reason: Hypoglycemia Protocol Stop: 11/09/24 15:30 Gabapentin (Gabapentin 600 Mg Tab) 600 mg PO TID ESTHER Stop: 11/09/24 15:30 Last Admin: 10/11/24 08:54 Dose: 600 mg Glucagon (Glucagon For Inj 1 Mg Vial) 1 mg SQ UD PRN; Protocol PRN Reason: Hypoglycemia Protocol Stop: 11/09/24 15:30 Glucose (Glucose 40% Gel 15 Gm Tube) 15 - 30 gm PO UD PRN; Protocol PRN Reason: Hypoglycemia Protocol Stop: 11/09/24 15:30 Glucose (Glucose 10 Tab/Tube) 4 - 8 tab PO UD PRN; Protocol PRN Reason: Hypoglycemia Protocol Stop: 11/09/24 15:30 Heparin Sodium (Porcine) (Heparin Sod 5,000 Unit/0.5 Ml Vial) 5,000 units SQ Q8 ESTHER Stop: 11/10/24 13:59 Piperacillin Sod/Tazobactam Sod (Zosyn) 4.5 gm in 100 mls @ 25 mls/hr IV Q12H ESTHER; Protocol Stop: 10/25/24 19:59 Last Admin: 10/11/24 08:54 Dose: 25 mls/hr Insulin Aspart (Insulin Aspart Per Unit Charge) 0 units SC ACHS [facility] Stop: 11/09/24 16:29 Last Admin: 10/11/24 08:54 Dose: 3 units Insulin Glargine (Lantus Per Unit Charge) 20 units SC BID ESTHER; Protocol Stop: 11/09/24 20:59 Last Admin: 10/11/24 08:55 Dose: 20 units Miscellaneous (Carbohydrates For Hypoglycemia ) 15 - 30 gm PO UD PRN PRN Reason: Hypoglycemia Protocol Stop: 11/09/24 15:30 Miscellaneous Information (Pharmacy Glycemic Mgmt Consult) 1 each N/A UD PRN; Protocol PRN Reason: Consult Stop: 11/09/24 11:44 Mupirocin (Mupirocin 2% Oint 22 Gm Tube) 1 appln EXT DAILY [facility] Stop: 11/09/24 17:29 Last Admin: 10/11/24 08:55 Dose: 1 appln Ondansetron HCl (Ondansetron Inj 2 Mg/Ml 2 Ml Vial) 4 mg IV Q4H PRN PRN Reason: Nausea And Vomiting Stop: 11/09/24 15:30 Vitamin D (Cholecalciferol 25 Mcg (1000 Units) Tab) 25 mcg PO MoWeFr@0900 ESTHER Stop: 11/09/24 15:30 Last Admin: 10/10/24 16:25 Dose: 25 mcg PG Care Time/CCT Total # of Minutes Spent Total Time Spent with Patient: Total time spent is greater than 50% in coordination of care (as documented) at patient's floor/unit and/or counseling patient: Coding [place] [address] IN/OBS CONSULT LVL 5,80M Patient Type Established History Comprehensive Exam Comprehensive Medical Decision Making High Complexity Diagnoses Sepsis A41.9; R65.20; G93.41 Sepsis acute organ dysfunction status: with acute organ dysfunction Sepsis type: sepsis due to unspecified organism Severe sepsis acute organ dysfunction type: encephalopathy Severe sepsis shock status: without septic shock Staphylococcus aureus bacteremia with sepsis A41.01 S/P cardiac pacemaker procedure Z95.0 S/P AVR (aortic valve replacement) Z95.2 Coronary artery disease involving [place] coronary artery of [place] heart without angina pectoris I25.10 Associated angina: without angina Coronary Disease-Associated Artery/Lesion type: [place] artery [place] vs. transplanted heart: ass[place] heart Time Spent (min) 90 Comment 60 minutes by Damir Nixon PA-C, [address] Stanley (1) Sepsis Sepsis acute organ dysfunction status: with acute organ dysfunction Sepsis type: sepsis due to unspecified organism Severe sepsis acute organ dysfunction type: encephalopathy Severe sepsis shock status: without septic shock Qualified Code(s): A41.9 - Sepsis, unspecified organism; R65.20 - Severe sepsis without septic shock; G93.41 - Metabolic encephalopathy (5) CAD (coronary artery disease) Associated angina: without angina Coronary Disease-Associated Artery/Lesion type: [place] artery [place] vs. transplanted heart: [place] heart Qualified Code(s): I25.10 - Atherosclerotic heart disease of [place] coronary artery without angina pectoris
--- NOTE | 2024-10-11 13:03 | Infectious Disease Consult ---
"Date of Service October 11, 2024 Telehealth Information I performed this visit using a real-time telehealth connection between my location and the patients location ([facility]). After connecting through interactive tele-video, patient was identified by name and date of and/or wristband check.Patient (or authorized healthcare sales promotion representative) was informed that this was a telemedicine visit and it was being conducted confidentially over secure lines. My office door was closed and no o ne else was present in the room with me.Patient (or authorized healthcare sales promotion representative) provided consent to proceed with the visit, expressed an understanding of privacy and security of the telemedicine visit, and gave permission to have a hospital sales promotion representative in the room in order to assist with the visit and to conduct portions of the visit, as needed. I informed the patient (or authorized healthcare sales promotion representative) that I reviewed their record and presented the opportunity for them to ask any questions regarding the visit today. The patient agreed to participate. Assessment & Plan (1) CAD (coronary artery disease): (2) S/P AVR (aortic valve replacement): (3) Staphylococcus aureus bacteremia with sepsis: (4) S/P cardiac pacemaker procedure: (5) ESRD on peritoneal dialysis: (6) Sepsis: Plan Assessment: 64-year-old male with PMHx of end-stage renal disease on peritoneal dialysis, DM type II, CAD, HTN history of complete heart block, s/p pacemaker insertion, prosthetic aortic valve, bicuspid, history of PE, peripheral vascular disease, s/p left great toe amputation, chronic left 2nd and 3rd toe wound, left well-healed heel ulcer, dry gangrene of right hand, who presented to [facility] on 10/10/2024 with increased confusion, lethargy, fever, and chills/rigors. At [facility], WBC 22,000 with a left shift, BUN 50/creatinine 6.6, sodium 132, potassium 3.7, glucose elevated at 423, lactate 2.8. Respiratory biofire is negative. Blood cultures returned positive for MSSA bacteremia based on PCR detection. Pt started on Vancomycin IV and Pip/tazo IV initially. Plan: 1. MSSA bacteremia - TTE not conclusive, recommend ANI given pacemaker and prosthetic aortic valve. r/o endovascular source vs seeding. - Vancomycin IV already stopped. Recommend stopping Zosyn IV and switching to Cefazolin 1g q24 and after dialysis on dialysis days. r/o OM of L spine and Left foot. - Agree with MRI L spine and MRI Left foot. - Recommend check blood cultures every other day until negative - we will not actively monitor patient, for additional recommendations please contact the ID physician spa consultant for teledoc services via phone or tiger text. History of Present Illness History of Present Illness Reason for Consult: staph aureus bacteremia 64 year old male with PMHx of end-stage renal disease on peritoneal dialysis, DM type II, CAD, HTN history of complete heart block, s/p pacemaker insertion, prosthetic aortic valve, bicuspid, history of PE, peripheral vascular disease, s/p left great toe amputation, chronic left 2nd and 3rd toe wound, left well- healed heel ulcer, dry gangrene of right hand, who presented to [facility] on 10/10/2024 with increased confusion, lethargy, fever, and chills/rigors. Per notes and chart review, pt c/o back pain which started on Thursday, noted lower back, and uses a walker/wheelchair at baseline. On Thursday pt took wheelchair to the bathroom and then had issue standing up and slid in the bathroom where he injured the left 2nd and 3rd toes which are now bloody. Pt does home peritoneal dialysis, got out 1.6 L last evening per . He has a port which is maintained in the abdomen. At [facility], WBC 22,000 with a left shift, BUN 50/creatinine 6.6, sodium 132, potassium 3.7, glucose elevated at 423, lactate 2.8. Respiratory biofire is negative. Blood cultures returned positive for MSSA bacteremia based on PCR detection. Pt started on Vancomycin IV and Pip/tazo IV. ID consulted for evaluation and management. Allergies Allergy/AdvReac Type Severity Reaction Status Date / Time daptomycin Allergy Rash Verified 10/10/24 09:48 Home Medications Medication Instructions Recorded Confirmed Type atenolol 50 mg tablet 50 mg PO QAM 03/07/20 10/10/24 History atorvastatin 40 mg tablet 80 mg PO QPM 03/07/20 10/10/24 History clopidogrel 75 mg tablet 75 mg PO HS 03/07/20 10/10/24 History insulin aspart U-100 100 unit/mL 1 sliding scale dose subcut UD 03/07/20 10/10/24 History (3 mL) subcutaneous pen (Novolog FlexPen U-100 Insulin aspart) insulin glargine 100 unit/mL (3 20 unit subcut BID 03/07/20 10/10/24 History mL) subcutaneous pen (Basaglar KwikPen U-100 Insulin) aspirin 81 mg tablet,delayed 81 mg PO DAILY 11/01/21 10/10/24 History release cholecalciferol (vitamin D3) 25 25 mcg PO .3X WEEK 11/01/21 10/10/24 History mcg (1,000 unit) tablet (Vitamin D3) acetaminophen 500 mg tablet 500 - 1,000 mg PO UD PRN Pain 10/10/24 10/10/24 History amlodipine 5 mg tablet 2.5 mg PO QAM 10/10/24 10/10/24 History gabapentin 600 mg tablet 600 mg PO TID 10/10/24 10/10/24 History torsemide 100 mg tablet 100 mg PO DAILY 10/10/24 10/10/24 History Patient History Medical History Amputation of left great toe Osteomyelitis Hallux abducto valgus, bilateral Amputated great toe of right foot Diabetes mellitus with neuropathy Diabetic peripheral neuropathy Callus Surgical History History of revascularization procedure of lower extremity Social History Smoking Status: Former smoker Tobacco Type: Smokeless Tobacco (Dip or Chew) Do You Dip or Chew Tobacco: Yes; Tobacco Cessation Education Requested by Patient: No Hx Alcohol Use: Yes Alcohol type: beer Hx Substance Use: No Preferred Language: Persian Communication Ability: Effective Visual Impairment: Limited Hearing Ability: Normal Cord Splicer Required: No Beliefs That Will Affect Care: None marital status: Current Living Situation: Spouse current occupational status: employed 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 Physical Exam NA Results & Data Vital Signs (Past 12 Hours) Vital Signs Temp Pulse Resp BP Pulse Ox O2 Del Method 10/11/24 10:54 36.6 C 77 18 122/69 97 Room Air 10/11/24 08:41 36.8 C 81 18 10/11/24 07:00 36.6 C 85 18 131/75 99 Room Air 10/11/24 03:43 37.1 C 79 18 138/79 93 Room Air Laboratory Results Blood cultures on 10/10/2024 in 4/4 bottles Blood Culture Aerobic Preliminary 10/11/24-1138 Organism 1 Staphylococcus aureus Sens Sensitivities to Follow Blood Culture Anaerobic Preliminary 10/11/24-1138 Organism 1 Staphylococcus aureus Sens No Sensitivities to Follow Blood Culture PCR Panel If viewing in EMR, results available under LAB Serology tab. Phoned positive Blood Culture Gram Stain report to THOMAS BRAY on 10/10/24 at 2116 [place] [id number]. [place] [id number]. Bld Cult Resist | | | | MRSA mecAC+MREJ | MRSA Not Detected | | NotDetected | Bld Cult GrmPos | | | | Staph spp | | | | Staph spp | DETECTED | A | NotDetected | | Critical result called to THOMAS BRAY | On 10/10/24 at 2115 by Kathe Carpio and | results were verbalized back. S aureus | DETECTED | A | NotDetected | | Critical result called to THOMAS BRAY | On 10/10/24 at 2115 by Kathe Carpio and | results were verbalized back. Bld Cult ID PCR | See PCR Comment | | NotDetected | | Biofire methodology: | Real-time, Multiplex PCR Nucleic Acid Amplification 10/10/24 14:53 Gram Stain - Final Abdomen Aerobic and Anaerobic Culture - Preliminary No growth to date. 10/10/24 09:57 Aerobic Blood Culture - Preliminary Blood Staphylococcus aureus Anaerobic Blood Culture - Preliminary Staphylococcus aureus 10/10/24 09:57 Aerobic Blood Culture - Preliminary Blood Staphylococcus aureus Anaerobic Blood Culture - Preliminary Staphylococcus aureus 10/11/24 10/11/24 10/11/24 10:52 07:02 04:34 WBC RBC Hgb Hct MCV MCH MCHC RDW Std Deviation RDW Coeff of Kesha Plt Count MPV Sodium Potassium Chloride Carbon Dioxide Anion Gap BUN Creatinine Est Cr Clr Drug Dosing eGFR BUN/Creatinine Ratio Glucose POC Glucose 162 H 206 H 218 H Fasting Glucose Estimat Average Glucose Hemoglobin A1c Calcium Troponin I High Sens Fluid Neutrophils % Fluid Lymphocytes % Fluid Meso/Macro/[place] % Fluid Comment Peritoneal Color Peritoneal Appearance Peritoneal WBC (Auto) Peritoneal RBC (Auto) Nasal Screen MRSA (PCR) Random Vancomycin Staphylococcus sp PCR Staph aureus (PCR) mecA/C & MREJ Resist Gene Bld Cult ID Panel PCR 10/11/24 10/11/24 10/10/24 04:03 00:14 20:48 WBC 15.54 H RBC 3.47 L Hgb 10.9 L Hct 32.1 L MCV 92.5 MCH 31.4 MCHC 34.0 RDW Std Deviation 46.1 RDW Coeff of Kesha 13.6 Plt Count 137 MPV 11.1 Sodium 134 L Potassium 3.4 L Chloride 97 L Carbon Dioxide 26 Anion Gap 11 BUN 60 H Creatinine 7.49 H* D Est Cr Clr Drug Dosing 12.8 eGFR 7.55 BUN/Creatinine Ratio 8.0 L Glucose 229 H POC Glucose 300 H 292 H Fasting Glucose Estimat Average Glucose 171 Hemoglobin A1c 7.6 H Calcium 8.3 L Troponin I High Sens Fluid Neutrophils % Fluid Lymphocytes % Fluid Meso/Macro/[place] % Fluid Comment Peritoneal Color Peritoneal Appearance Peritoneal WBC (Auto) Peritoneal RBC (Auto) Nasal Screen MRSA (PCR) Random Vancomycin 22.2 H Staphylococcus sp PCR Staph aureus (PCR) mecA/C & MREJ Resist Gene Bld Cult ID Panel PCR 10/10/24 10/10/24 10/10/24 18:25 17:06 16:03 WBC RBC Hgb Hct MCV MCH MCHC RDW Std Deviation RDW Coeff of Kesha Plt Count MPV Sodium 133 L Potassium 3.4 L Chloride 96 L Carbon Dioxide 23 Anion Gap 14 H BUN 59 H Creatinine 6.63 H* Est Cr Clr Drug Dosing 14.5 eGFR 8.74 BUN/Creatinine Ratio Glucose POC Glucose 349 H* Fasting Glucose 301 H* Estimat Average Glucose Hemoglobin A1c Calcium 8.2 L Troponin I High Sens 278.9 H* Fluid Neutrophils % Fluid Lymphocytes % Fluid Meso/Macro/[place] % Fluid Comment Peritoneal Color Peritoneal Appearance Peritoneal WBC (Auto) Peritoneal RBC (Auto) Nasal Screen MRSA (PCR) Negative Random Vancomycin Staphylococcus sp PCR Staph aureus (PCR) mecA/C & MREJ Resist Gene Bld Cult ID Panel PCR 10/10/24 10/10/24 10/10/24 16:02 14:53 09:57 WBC RBC Hgb Hct MCV MCH MCHC RDW Std Deviation RDW Coeff of Kesha Plt Count MPV Sodium Potassium Chloride Carbon Dioxide Anion Gap BUN Creatinine Est Cr Clr Drug Dosing eGFR BUN/Creatinine Ratio Glucose POC Glucose 345 H* Fasting Glucose Estimat Average Glucose Hemoglobin A1c Calcium Troponin I High Sens Fluid Neutrophils % 18 Fluid Lymphocytes % 2 Fluid Meso/Macro/[place] % 80 Fluid Comment Peritoneal Color Pale Yellow Peritoneal Appearance Clear Peritoneal WBC (Auto) 32 Peritoneal RBC (Auto) < 2000 Nasal Screen MRSA (PCR) Random Vancomycin Staphylococcus sp PCR DETECTED A Staph aureus (PCR) DETECTED A mecA/C & MREJ Resist Gene MRSA Not Detected Bld Cult ID Panel PCR See PCR Comment Diagnostic Findings TTE on 10/11/2024 - Aortic Prosthetic valves not well visualized. CT abd/pelvis on 10/10/2024 IMPRESSION: 1. No acute process within the abdomen or pelvis. 2. No bowel obstruction. No bowel wall thickening. Normal appendix. Moderate amount of stool within the rectum. 3. Gas within the bladder. This could be correlated with history of recent instrumentation. 4. Trace fluid within the abdomen and pelvis, likely related to indwelling peritoneal dialysis catheter. 5. Extensive vascular calcification. 6. Mild splenomegaly. CT chest on 10/10/2024 IMPRESSION: 1. No consolidation. Multifocal clustered tree-in-bud nodules within the lungs. These favor an age indeterminate mild infectious or inflammatory process. A follow-up CT in 3 months to ensure resolution is recommended. 2. Scattered nodules throughout the lungs, a few of which are new since prior CT. These are low suspicion but should be assessed on follow-up CT. 3. Mild cardiomegaly. Extensive coronary artery calcification. Status post median sternotomy and bypass grafting. Medications Administered Home Medications Medication Instructions Recorded Confirmed Last Taken atenolol 50 mg tablet 50 mg PO QAM 03/07/20 10/10/24 07/19/21 atorvastatin 40 mg tablet 80 mg PO QPM 03/07/20 10/10/24 07/18/21 clopidogrel 75 mg tablet 75 mg PO HS 03/07/20 10/10/24 07/18/21 insulin aspart U-100 100 unit/mL 1 sliding scale dose subcut UD 03/07/20 10/10/24 07/19/21 12:00 (3 mL) subcutaneous pen (Novolog 10 units FlexPen U-100 Insulin aspart) insulin glargine 100 unit/mL (3 20 unit subcut BID 03/07/20 10/10/24 07/19/21 mL) subcutaneous pen (Jayjayagllashawn Casarez U-100 Insulin) aspirin 81 mg tablet,delayed 81 mg PO DAILY 11/01/21 10/10/24 Unknown release cholecalciferol (vitamin D3) 25 25 mcg PO .3X WEEK 11/01/21 10/10/24 Unknown mcg (1,000 unit) tablet (Vitamin D3) acetaminophen 500 mg tablet 500 - 1,000 mg PO UD PRN Pain 10/10/24 10/10/24 Unknown amlodipine 5 mg tablet 2.5 mg PO QAM 10/10/24 10/10/24 Unknown gabapentin 600 mg tablet 600 mg PO TID 10/10/24 10/10/24 Unknown torsemide 100 mg tablet 100 mg PO DAILY 10/10/24 10/10/24 Unknown Active Medications Generic Name Dose Route Start Last Admin Trade Name Freq PRN Reason Stop Dose Admin Acetaminophen 650 mg 10/10/24 15:31 10/10/24 20:32 Acetaminophen 325 Mg Tab PO 11/09/24 15:30 650 mg Q4H PRN Administration Moderate Pain (Scale 4, 5, 6) Atorvastatin Calcium 80 mg 10/10/24 21:00 10/10/24 20:25 Atorvastatin 40 Mg Tab PO 11/09/24 20:59 80 mg QPM ESTHER Administration Clopidogrel Bisulfate 75 mg 10/10/24 21:00 10/10/24 20:24 Clopidogrel Bisulfate 75 Mg Tab PO 11/09/24 20:59 75 mg HS ESTHER Administration Gabapentin 600 mg 10/10/24 15:31 10/11/24 08:54 Gabapentin 600 Mg Tab PO 11/09/24 15:30 600 mg TID ESTHER Administration Piperacillin Sod/Tazobactam Sod 4.5 gm in 100 mls @ 25 mls/hr 10/10/24 20:00 10/11/24 12:54 Zosyn IV 10/25/24 19:59 Infused Q12H ESTHER Infusion Protocol Insulin Aspart 0 units 10/10/24 16:30 10/11/24 08:54 Insulin Aspart Per Unit Charge SC 11/09/24 16:29 3 units ACHS ESTHER Administration Insulin Glargine 20 units 10/10/24 21:00 10/11/24 08:55 Lantus Per Unit Charge SC 11/09/24 20:59 20 units BID ESTHER Administration Protocol Mupirocin 1 appln 10/10/24 17:30 10/11/24 08:55 Mupirocin 2% Oint 22 Gm Tube EXT 11/09/24 17:29 1 appln DAILY ESTHER Administration Vitamin D 25 mcg 10/10/24 15:31 10/10/24 16:25 Cholecalciferol 25 Mcg (1000 Units) Tab PO 11/09/24 15:30 25 mcg MoWeFr@0900 ESTHER Administration (1) CAD (coronary artery disease) Coronary Disease-Associated Artery/Lesion type: [place] artery [place] vs. transplanted heart: [place] heart Associated angina: without angina Qualified Code(s): I25.10 - Atherosclerotic heart disease of [place] coronary artery without angina pectoris (6) Sepsis Sepsis acute organ dysfunction status: with acute organ dysfunction Sepsis type: sepsis due to unspecified organism Severe sepsis acute organ dysfunction type: encephalopathy Severe sepsis shock status: without septic shock Qualified Code(s): A41.9 - Sepsis, unspecified organism; R65.20 - Severe sepsis without septic shock; G93.41 - Metabolic encephalopathy"
[2024-10-11] MEDS: HEPARIN SOD 5,000 UNIT/0.5 ML VIAL SQ SCH (13:38)
--- NOTE | 2024-10-11 13:49 | Magnetic Resonance Report ---
MRI OF THE LEFT FOOT WITHOUT CONTRAST CLINICAL HISTORY: Lef 2nd/3rd toe ulcers, suspected osteomyelitis. COMPARISON STUDY: Left foot MRI September 05, 2021. Left foot radiographs October 10, 2024. TECHNIQUE: Utilizing 1.5 Michelle magnet and dedicated coil, multiplanar, multiecho imaging of the left forefoot was performed without intravenous contrast. FINDINGS: This exam is mildly compromised given difficulty positioning. There are postoperative findi ngs consistent with amputation of the first digit at the level of the distal first metatarsal. Skin d efect consistent with ulcer of the left third toe is noted. There is no marrow T2 hyperintensity and T1 hypointensity within the adjacent middle and distal phalanges of the third toe consistent with ost eomyelitis. In addition, there is an ulcer of the second toe with marrow T2 hyperintensity and T1 hyp ointensity within the distal phalanx of the second toe. No additional sites of marrow edema are ident ified. No fluid collection is identified on unenhanced exam. Moderate dorsal subcutaneous edema is pr esent. There is no associated fluid collection. IMPRESSION: 1. Left second and third toe ulcers. Findings consistent with acute osteomyelitis of the middle and d istal phalanges of the left third toe and the distal phalanx of the second toe. 2. Status post left first digit amputation. ACT 112: Negative or not required by law. Electronically signed by: Tyrone Pearson M.D. 10/11/2024 1:47 PM
--- NOTE | 2024-10-11 14:03 | Magnetic Resonance Report ---
MRI OF THE LUMBAR SPINE WITHOUT IV CONTRAST CLINICAL HISTORY: Back pain. Bacteremia. COMPARISON STUDY: Abdominal CT dated 10/10/2024. TECHNIQUE: MRI of the lumbar spine was performed utilizing various T1 and T2 sequences in axial and s agittal planes. IV contrast was not administered for this examination. FINDINGS: Lumbar spine: Vertebral body height and alignment are maintained throughout the lumbar spine. The tra nsverse and spinous processes appear intact. There is no evidence of spondylolysis. Anterior and late ral marginal osteophytes are seen throughout. A 12 mm atypical hemangioma is noted in the body of L5. An additional hemangioma is noted in L1. No destructive bony lesion is seen. There is a Schmorl's no de within the inferior endplate of L4. Mild chronic degenerative endplate change is seen at several l evels. There is mild degenerative endplate edema at T12-L1 and L5-S1. Intervertebral discs: Disc desiccation is seen throughout the lumbar spine. There is moderate loss of height at L5-S1. Only mild loss of height is seen at the remaining levels. There is no fluid within the disc spaces. Paraspinal cord: The visualized spinal cord is normal in morphology and signal inten sity. The conus medullaris terminates at the level of L2. The nerve roots of the cauda equina are nor mal in morphology. L1-L2: Unremarkable. L2-L3: The central canal is clear. Lateral disc bulges contribute to mild bilateral subarticular sten osis. Facet arthropathy is of no consequence. The neural foramina are patent. L3-L4: There is minimal posterior disc bulge which abuts the transiting nerve roots. No significant c entral canal stenosis is seen. Lateral disc bulges contribute to mild bilateral subarticular stenosis . In conjunction with facet arthropathy there is minimal bilateral neural foraminal narrowing. L4-L5: There is minimal posterior disc bulge with annular fissure. No significant central canal steno sis is seen. Lateral disc bulges cause bilateral subarticular stenosis, left side greater than right. In conjunction with facet arthropathy there is [id number] bilateral neural foraminal stenosis. L5-S1: There is a small central posterior disc protrusion with annular fissure. This abuts the transi ting nerve roots. No significant central canal stenosis is seen. Bilateral disc bulges cause bilatera l subarticular stenosis, right side greater than left. This may impinge on the exiting right L5 nerve root. In conjunction with facet arthropathy there is moderate right greater than left neural foramin al stenosis. Sacrum: The imaged sacrum is normal in morphology and signal intensity. Soft tissues: The paraspinous soft tissues are within normal limits. No paravertebral edema is seen. Bilateral renal cysts are partially imaged measuring 2.5 cm. No retroperitoneal lymphadenopathy is id entified. The bladder significant distended, the wall appears thickened/trabeculated indicating chron ic outlet obstruction. IMPRESSION: 1. Mild lumbosacral spondylosis as above with no significant acquired compromise of the central canal . See discussion for detailed level by level analysis. 2. Degenerative disc disease as above with associated endplate change. 3. No destructive bony process is seen. 4. Distended bladder with evidence of chronic outlet obstruction. Electronically signed by: Lalo Calhoun M.D. 10/11/2024 2:01 PM
--- NOTE | 2024-10-11 14:36 | Podiatry Progress Note ---
Date of Service October 11, 2024 Assessment & Plan (1) 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: (2) Chronic osteomyelitis: (3) Sepsis: (4) Peripheral vascular disease: Plan Patient was examined and evaluated. Chart and imaging reviewed. We discussed the MRI findings of osteomyelitis of left second distal phalanx and the third middle and distal phalanges. This confirms clinical findings of the ulcer probing to bone on the left third toe. It was discussed IV antibiotics for 6-8 weeks vs the second and third toe amputation of left foot. Patient and his understand and want to proceed left second and third toe amputation. Will plan for surgery tomorrow (10/12/24) at 11:30am. NPO after midnight. Admission and Anticipated Discharge Date Admission Date: October 10, 2024 Subjective Patient seen and examined at bedside. Patient states he had a minor wound on his left 3rd toe for weeks and was under the care of his pyrometer temperature regulator. States prior to admission, he slipped in his bathroom causing wounds to his left 2nd and 3rd toes. States after that incident, he started to feel ill and noticed worsening of the left 2nd and 3rd toes. Reports he is unable to walk due to balance issues after his left great toe amputation. reports he has had overall weakness and had been seeing physical therapy. Reports no fever or chills overnight. Review of Systems Constitutional: + fever, + chills, + sweats, + fatigue a nd + weakness Eyes: no problem reported Ear, Nose, Mouth, Throat: no problem reported Respiratory: no problem reported Cardiovascular: + edema; no problem reported Gastrointestinal: + nausea; no vomiting and no problem rep orted Musculoskeletal: + muscle weakness; no problem reported Integumentary: + skin ulcer, + wounds and + erythema Neurologic: + loss of sensation, + numbness and + pa resthesia; no generalized weakness Psychiatric: + confusion Physical Exam Constitutional: WD/WN, vitals as above average body habitus; no acute distress Eyes: PERRL, conjunctivae normal, anicteric sclerae ENMT: external ear and nose normal, oropharynx normal Neck: trachea midline, no thyromegaly Respiratory: normal respiratory effort; no respiratory distress Cardiovascular: Rate/Rhythm: regular rate and regular rhythm Vessels: + posterior tibial pulses abnormal and + dorsalis pedis pulses abnormal Extremities: normal capillary refill and + pedal edema Gastrointestinal (Abdomen): Inspection/Auscultation: abdomen normal to inspection Musculoskeletal: Head/Neck/Chest: normocephalic and head atraumatic Extremities: + amputation noted (s/p right hallux amputation and left partial 1st ray amputation) and + foot abnormality (pes planus) Skin: + ulcer, + wound (left 2nd and 3rd toes) , + skin atrophy and + nails dystrophic left 2nd distal toe ulcer base consisting of necrotic tissue and left 3rd dorsum toe ischemic ulcer probes to bone with purulent drainage noted. Edema and erythema noted to left third toe. Healed ulcer with minimal overlying hyperkeratotic tissue noted right posteror heel. Neurologic: moves all extremities and awake; + abnormal touch/pain/proprioception and + abnormal sensation to monofilament Psychiatric: A+Ox3, euthymic affect Results & Data Results & Data Vital Signs (Past 12 Hours) Vital Signs Temp Pulse Resp BP Pulse Ox O2 Del Method 10/11/24 10:54 36.6 C 77 18 122/69 97 Room Air 10/11/24 08:41 36.8 C 81 18 10/11/24 07:00 36.6 C 85 18 131/75 99 Room Air 10/11/24 03:43 37.1 C 79 18 138/79 93 Room Air Diagnostic Findings Xray 3 views left foot demonstrates partial 1st ray amputation. MRI left foot findings consistent with acute osteomyelitis of 2nd distal phalanx and 3rd distal and middle phalanges. (1) 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 Diabetes mellitus type: type 2 Diabetic foot ulcer location: toe Laterality: left Qualified Code(s): E11.621 - Type 2 diabetes mellitus with foot ulcer; L97.524 - Non-pressure chronic ulcer of other part of left foot with necrosis of bone (3) Sepsis Sepsis acute organ dysfunction status: with acute organ dysfunction Sepsis type: sepsis due to unspecified organism Severe sepsis acute organ dysfunction type: encephalopathy Severe sepsis shock status: without septic shock Qualified Code(s): A41.9 - Sepsis, unspecified organism; R65.20 - Severe sepsis without septic shock; G93.41 - Metabolic encephalopathy
[2024-10-12 05:54] LABS: Hematocrit (blood only) 29.7 % (42.0-52.0); Hemoglobin 10.1 g/dl (14.0-18.0); Immature Granulocytes # (auto) 0.15 K/uL (0.01-0.20); Immature Granulocytes % (auto) 1.1 %; Mean Corpuscular Hemoglobin 30.9 pg (25.0-34.0); Mean Corpuscular Volume 90.8 fL (80.0-100.0); Platelet Count 134 K/uL (130-400); RDW Standard Deviation 44.9 fL (36.4-46.3); Red Blood Count 3.27 M/uL (4.70-6.10); White Blood Count 13.07 K/ul (4.8-10.8)
[2024-10-12] MEDS: INSULIN ASPART PER UNIT CHARGE SC SCH (05:56)
[2024-10-12 06:30] LABS: Anion Gap 15.0 (3-11); Blood Urea Nitrogen 66.0 mg/dl (6-23); Calcium 7.9 mg/dl (8.6-10.3); Carbon Dioxide 23.0 mmol/L (21-32); Chloride 95.0 mmol/L (98-107); Creatinine Clr Calc Pharmacy 11.4 ml/min; Glucose 169.0 mg/dl (70-99(Fasting)); Potassium 3.3 mmol/L (3.5-5.1); Sodium 133.0 mmol/L (136-145)
[2024-10-12] MEDS: LANTUS PER UNIT CHARGE SC SCH ×2 (08:08→20:31)
--- NOTE | 2024-10-12 08:39 | Cardiology Progress Note ---
Date of Service October 12, 2024 Assessment & Plan (1) Sepsis: (2) Staphylococcus aureus bacteremia with sepsis: (3) S/P cardiac pacemaker procedure: (4) S/P AVR (aortic valve replacement): (5) CAD (coronary artery disease): Plan Assessment: Patient admitted with febrile illness, staph bacteremia on BC x2 with elevated lactate and WBC also noted on admission. Multiple sources of infection possible. He has chronic LE wounds, recent foot injury and possible infection. Also with ongoing acute back pain x3 days. MRI of the spine and foot with high suspicion of osteomyelitis in left second and third toes. No evidence of osteomyelitis in the spine. He has right upper extremity gangrene (chronic) but no recent imaging - would consider possible source of infection as well - consider MRI of the right hand. Chest CTA with possible area of consolidation/pneumonia. Started on broad spectrum antibiotics. Plan: Sepsis Staphylococcus aureus bacteremia with sepsis -Foot MRI with high suspicion of osteomyelitis in the left second and third toes -Patient is currently NPO in anticipation of left second and third toe amputation today -Right upper extremity gangrene (chronic) Recommend consideration for MRI of the right hand. -ID has requested ANI to ensure no vegetation on bioprosthetic valve or pacer leads. Will await for patient to have toe amputation. NPO after midnight for ANI. CAD s/p AVR s/p PPM -Minimal elevation in troponin on admission with no complaints of angina or equivilent. -Echo shows preserved LVEF and no wall motion abnormalities. AVR with normal function and gradients. Limited for r/o of vegetation -NPO after midnight for planned ANI 10/13/2024 -Continue Statin therapy, ASA and Plavix -Continue Atenolol and Amlodipine reamain on hold, would recommend that they be restarted as blood pressures have improved. Diuretic therapy remains on hold in the setting of acute sepsis. Patient with mild lower extremity edema. Will need to monitor closely with consideration to restart if fluid status increases and blood pressures can sustain. -Device interrogation with no alarms or events. ESRD on PD -No sign of infection per peritoneal fluid PVD -history of significant vascular disease on dual antiplatelet therapy -S/P REIA stent, R SFA/pop lithotripsy/angioplasty (for occlusion), R PT/peroneal angioplasty by on 07/08/24. -He had recent stent and intervention in June 2024 - continue ASA/Plavix. further recommendations pending ANI tomorrow. Case has been discussed with Dr. Stanley. Further recommendations regarding plan of care as per his assessment. I spent a total of 30 minutes on the date of service in preparation, delivery, documentation of the care provided to the patient excluding any time spent in the performance of separately billed services. LUPE Frost [facility] Admission and Anticipated Discharge Date Admission Date: October 10, 2024 Supervising Physician Co-Signing Physician Notes Attending attestation: Case reviewed with the advanced practitioner. I have personally performed a history and physical examination on the patient. I have reviewed the advanced practitioner's documentation on the date of service referenced in note, and I agree with, and take responsibility for the plan of care. Patient seen after podiatry surgery today. Tolerated the procedure well hemodynamically. Feeling well at present. Telemetry reveals sinus rhythm with ventricular pacing in the 70s. Patient has been afebrile since 10/10/2024 at 7. Spouse at the bedside. Plan for MRI of the right hand given history of dry gangrene of the 4th and 5th fingers. Proceed with transesophageal echocardiogram tomorrow 10/13/2024. Informed consent was obtained.Patient elects to proceed with transesophageal echo. I spent a total of 20 minutes coordinating, documenting, and providing care for this patient excluding time spent in the performance of separately billed services or time spent by another provider. Geronimo Stanley, Subjective 10/12/2024: Patient seen and examined in follow up today. Feeling "crappy". He is resting comfortably in bed at this time. NPO in anticipation of left 2nd and 3rd toe amputations today. Denies any chest pain, pressure, palpitations, no shortness of breath, PND, pre-syncope or syncope. Endorses mild lower extremity edema, but "nothing new". Labs, vitals, diagnostics, telemetry and documentation reviewed. Telemetry reviewed showing V-Paced with underlying Sinus Rates 70's. Occasional PVC's. H/H 10.1/29.7 Na 133 K 3.3 Review of Systems Review of Systems: All systems reviewed & are unremarkable except as noted in HPI & below Physical Exam Constitutional: well developed, well nourished and + ill appearing; no acute distress Neck: normal visual inspection and trachea midline Respiratory: normal respiratory effort; no cough Cardiovascular: Rate/Rhythm: regular rate and regular rhythm Heart Sounds: normal S1 and normal S2 Vessels: dorsalis pedis pulses present; no JVD Extremities: + edema (+1 BLE) Skin: normal turgor and + wound (foam opsite on left foot covering 2nd and 3rd toes) Psychiatric: A+Ox3, euthymic affect Results & Data Vital Signs (Past 12 Hours) Vital Signs Temp Pulse Pulse Resp BP Pulse Ox O2 Del Method 10/12/24 07:49 36.9 C 75 18 134/70 91 Room Air 10/12/24 07:38 36.9 C 79 18 10/12/24 04:12 36.9 C 78 18 120/69 97 Room Air 10/11/24 23:49 36.8 C 76 18 142/98 H 95 Room Air 10/11/24 22:55 75 Laboratory Results CBC 10/12/24 Range/Units 05:37 WBC 13.07 H (4.8-10.8) K/ul RBC 3.27 L (4.70-6.10) M/uL Hgb 10.1 L (14.0-18.0) g/dl Hct 29.7 L (42.0-52.0) % Plt Count 134 (130-400) K/uL Neut # (Auto) 9.13 H (1.40-6.50) K/uL Lymph # (Auto) 1.60 (1.20-3.40) K/uL [place] # (Auto) 1.58 H (0.11-0.59) K/uL Eos # (Auto) 0.57 H (0.00-0.50) K/uL Baso # (Auto) 0.04 (0.00-0.20) K/uL Comprehensive Metabolic Panel 10/12/24 Range/Units 05:37 Sodium 133 L (136-145) mmol/L Potassium 3.3 L (3.5-5.1) mmol/L Chloride 95 L (98-107) mmol/L Carbon Dioxide 23 (21-32) mmol/L BUN 66 H (6-23) mg/dl Creatinine 8.50 H* D (0.6-1.4) mg/dl Glucose 169 H (70-99(Fasting)) mg/dl Calcium 7.9 L (8.6-10.3) mg/dl Intake and Output 10/11/24 10/12/24 10/12/24 22:59 06:59 14:59 Intake Total 100 / 1350 Output Total 1506 / 1506 Balance 100 / -255 -1506 / -1506 Intake: Oral 100 / 1250 Output: Peritoneal Dialysis 1506 / 1506 Ultrafiltration Amount Other: Other Intake Source NPO Weight 105.035 kg 106.2 kg 106.2 kg Weight Measurement Method Built in Bedscale Built in Bedscale Patient Weight 10/13/24 06:59 Weight 106.2 kg Diagnostic Findings Echocardiogram 10/11/2024: LVEF 55-60% No regional wall motion abnormalities noted. RV pacemaker lead not well visualized s/p surgical aortic valve replacement with a 27mm Avalus bioprothetic valve Gradient is normal for this type of valve Moderate mitral annular calcification Significant MR absent No mitral valve stenosis Grade II diastolic dysfunction No evidence of valvular vegetation within scope of limitation of this imaging modality Coding Level of Care Code 72074 SUB INP/OBS CARE 3/50MIN Diagnoses Sepsis A41.9; R65.20; G93.41 Sepsis acute organ dysfunction status: with acute organ dysfunction Sepsis type: sepsis due to unspecified organism Severe sepsis acute organ dysfunction type: encephalopathy Severe sepsis shock status: without septic shock Staphylococcus aureus bacteremia with sepsis A41.01 S/P cardiac pacemaker procedure Z95.0 S/P AVR (aortic valve replacement) Z95.2 Coronary artery disease involving [place] coronary artery of [place] heart without angina pectoris I25.10 Associated angina: without angina Coronary Disease-Associated Artery/Lesion type: [place] artery [place] vs. transplanted heart: [place] heart Time Spent (min) 50 Comment 30 minutes spend by LUPE Velasquez, [address] Stanley (1) Sepsis Sepsis acute organ dysfunction status: with acute organ dysfunction Sepsis type: sepsis due to unspecified organism Severe sepsis acute organ dysfunction type: encephalopathy Severe sepsis shock status: without septic shock Qualified Code(s): A41.9 - Sepsis, unspecified organism; R65.20 - Severe sepsis without septic shock; G93.41 - Metabolic encephalopathy (5) CAD (coronary artery disease) Associated angina: without angina Coronary Disease-Associated Artery/Lesion type: [place] artery [place] vs. transplanted heart: [place] heart Qualified Code(s): I25.10 - Atherosclerotic heart disease of [place] coronary artery without angina pectoris
[2024-10-12] MEDS: POTASSIUM CHLORIDE / WTR 10 MEQ/100 ML PLCT IV SCH (09:38)
--- NOTE | 2024-10-12 09:52 | Dialysis Progress Note ---
Date of Service October 12, 2024 Assessment & Plan Admission and Anticipated Discharge Date Admission Date: October 10, 2024 Subjective Assessment & Plan (1) ESRD on peritoneal dialysis: patient does not have much residual renal function left as he makes only about half a cup of urine per day. he has been doing peritoneal dialysis through a nocturnal cycler at home for the last few months. Previously was on hemodialysis. ESRD secondary to diabetes hypertension and chronic diffuse vascular disease. he has evidence of fluid overload on lower extremity exam as well as lung exam and chest x-ray. his mucous membrane appears dry-- patients with severe chronic medical problems like him always have dry mucous membrane because of salivary gland atrophy and lack of saliva production. So as a result this finding is completely useless to determine volume status in patient like him. labs appear acceptable. k slightly low. For tonight we will again do all 2.5% and do 2500 mL fill volume over 10-12 hours. did explain the patient as well as his that because he is in the hospital there will be some changes with both the volume and the duration and the type of fluid will be using based on his clinical situation. (2) Sepsis: PD fluid negative for peritonitis. No need of IP abx . ID eval done. 1. MSSA bacteremia - TTE not conclusive, recommend ANI given pacemaker and prosthetic aortic valve. r/o endovascular source vs seeding. - Vancomycin IV already stopped. Recommend stopping Zosyn IV and switching to Cefazolin 1g q24 and after dialysis on dialysis days. r/o OM of L spine and Left foot. - Agree with MRI L spine and MRI Left foot. S----Seen for PD. NO issues with PD overnight. net UF was 1500 ml. He feels better. No fever now. Blood C/s Grew GPC. PD fluid negative for Peritonitis. going to OR today review of systems as detailed in HPI unless stated otherwise 12 systems reviewed and negative Physical Exam Physical Exam: General: awake, alert, no apparent distress, less confused, Chest: Clear to auscultation, on room air. Cardiac: Regular rate and rhythm, + loud holosystolic murmur, no JVD, normal peripheral pulses, good capillary refill Abdominal: soft not distended and not tender at all. PD exit site normal- appearing Extremities: +2 peripheral edema, chronic skin changes s/p great toe amputations bilaterally - he does have injuries to the left 2nd and 3rd toe which are bloody. + dry gangrene involving the Right 4th and 5th fingers Psych: Flat mood and affect Results & Data Vital Signs (Past 12 Hours) Vital Signs Temp Pulse Pulse Resp BP Pulse Ox O2 Del Method 10/12/24 07:49 36.9 C 75 18 134/70 91 Room Air 10/12/24 07:38 36.9 C 79 18 10/12/24 04:12 36.9 C 78 18 120/69 97 Room Air 10/11/24 23:49 36.8 C 76 18 142/98 H 95 Room Air 10/11/24 22:55 75
--- NOTE | 2024-10-12 10:48 | Anesthesiology Consultation ---
Date of Service October 12, 2024 Assessment & Plan Chart Review Chart Review: Acceptable Risk for Surgery and Patient NOT seen in Pre Admission Testing Consults Requested none ASA ASA4 Proposed Anesthesia Anesthesia Type: MAC History Surgery Operation Date: 10/12/24 11:30 Proposed Procedures p Left Second and Third Toe Amputations - Veronica Webster, ARMANDO Operation Date: 10/13/24 07:30 Proposed Procedures p Transesophageal Echo w/Anesthesia - Geronimo Stanley, Height/Weight Height: 6 ft 1 in Weight: 106.2 kg Allergies Allergy/AdvReac Type Severity Reaction Status Date / Time daptomycin Allergy Rash Verified 10/10/24 09:48 Medications Home Medications Medication Instructions Recorded Confirmed Last Taken atenolol 50 mg tablet 50 mg PO QAM 03/07/20 10/10/24 07/19/21 atorvastatin 40 mg tablet 80 mg PO QPM 03/07/20 10/10/24 07/18/21 clopidogrel 75 mg tablet 75 mg PO HS 03/07/20 10/10/24 07/18/21 insulin aspart U-100 100 unit/mL 1 sliding scale dose subcut UD 03/07/20 10/10/24 07/19/21 12:00 (3 mL) subcutaneous pen (Novolog 10 units FlexPen U-100 Insulin aspart) insulin glargine 100 unit/mL (3 20 unit subcut BID 03/07/20 10/10/24 07/19/21 mL) subcutaneous pen (Basaglar KwikPen U-100 Insulin) aspirin 81 mg tablet,delayed 81 mg PO DAILY 11/01/21 10/10/24 Unknown release cholecalciferol (vitamin D3) 25 25 mcg PO .3X WEEK 11/01/21 10/10/24 Unknown mcg (1,000 unit) tablet (Vitamin D3) acetaminophen 500 mg tablet 500 - 1,000 mg PO UD PRN Pain 10/10/24 10/10/24 Unknown amlodipine 5 mg tablet 2.5 mg PO QAM 10/10/24 10/10/24 Unknown gabapentin 600 mg tablet 600 mg PO TID 10/10/24 10/10/24 Unknown torsemide 100 mg tablet 100 mg PO DAILY 10/10/24 10/10/24 Unknown Active Medications Generic Name Dose Route Start Last Admin Trade Name Freq PRN Reason Stop Dose Admin Acetaminophen 650 mg 10/10/24 15:31 10/10/24 20:32 Acetaminophen 325 Mg Tab PO 11/09/24 15:30 650 mg Q4H PRN Administration Moderate Pain (Scale 4, 5, 6) Atorvastatin Calcium 80 mg 10/10/24 21:00 10/11/24 20:31 Atorvastatin 40 Mg Tab PO 11/09/24 20:59 80 mg QPM ESTHER Administration Clopidogrel Bisulfate 75 mg 10/10/24 21:00 10/11/24 20:32 Clopidogrel Bisulfate 75 Mg Tab PO 11/09/24 20:59 75 mg HS ESTHER Administration Gabapentin 600 mg 10/10/24 15:31 10/12/24 08:08 Gabapentin 600 Mg Tab PO 11/09/24 15:30 600 mg TID ESTHER Administration Heparin Sodium (Porcine) 5,000 units 10/11/24 14:00 10/12/24 05:45 Heparin Sod 5,000 Unit/0.5 Ml Vial SQ 11/10/24 13:59 5,000 units Q8 ESTHER Administration Cefazolin Sodium 1,000 mg in 7.5 mls @ 2.5 mls/min 10/11/24 16:00 10/11/24 17:43 Ancef 1000mg IV 11/22/24 15:59 2.5 mls/min Q24H ESTHER Administration Insulin Aspart 0 units 10/12/24 06:00 10/12/24 05:56 Insulin Aspart Per Unit Charge CO 11/11/24 05:59 2 units Q6 ESTHER Administration Insulin Glargine 15 units 10/12/24 09:00 10/12/24 08:08 Lantus Per Unit Charge CO 11/09/24 20:59 15 units BID ESTHER Administration Mupirocin 1 appln 10/10/24 17:30 10/12/24 08:08 Mupirocin 2% Oint 22 Gm Tube EXT 11/09/24 17:29 1 appln DAILY ESTHER Administration Vitamin D 25 mcg 10/10/24 15:31 10/12/24 08:07 Cholecalciferol 25 Mcg (1000 Units) Tab PO 11/09/24 15:30 25 mcg MoWeFr@0900 ESTHER Administration Past Medical History Medical History Amputation of left great toe Osteomyelitis Hallux abducto valgus, bilateral Amputated great toe of right foot Diabetes mellitus with neuropathy Diabetic peripheral neuropathy Callus +ASCVD Aorta/CAD/Carotids PVD HLD HTN ESRD on PD s/p Pacemaker Hx/o TIA + CVA COPD Chews tobacco Exercise / Class Metabolic Activity III < 4 Walking/Shop/Light housework Past Surgical History Surgical History History of revascularization procedure of lower extremity Past Anesthesia History No Hx of Anesthesia Complications and No Family Hx of Anesthesia Complications History of PONV No Hx of PONV and No Hx of Motion Sickness Social History Smoking Status: Former smoker tobacco type: smokeless tobacco Do You Dip or Chew Tobacco: Yes Hx Alcohol Use: Yes Alcohol type: beer alcohol intake frequency: other Alcohol Intake Frequency Comment: "Used To" Hx Substance Use: No Physical Exam Vital Signs Last Vital Signs Temp 36.9 C 10/12/24 07:49 Pulse 75 10/12/24 07:49 Resp 18 10/12/24 07:49 BP 134/70 10/12/24 07:49 Pulse Ox 91 10/12/24 07:49 O2 Del Method Room Air 10/12/24 07:49 Testing Laboratory Results 10/12/24 05:37 10/12/24 05:37 Hemoglobin A1c 7.6 % (4.5-5.6) H 10/11/24 04:03 10/10/24 09:57 Aerobic Blood Culture - Preliminary Blood Staphylococcus aureus Anaerobic Blood Culture - Preliminary Staphylococcus aureus 10/10/24 14:53 Gram Stain - Final Abdomen Aerobic and Anaerobic Culture - Preliminary No growth to date. 10/10/24 09:57 Aerobic Blood Culture - Preliminary Blood Staphylococcus aureus Anaerobic Blood Culture - Preliminary Staphylococcus aureus 10/12/24 05:50 POC Glucose 183 H Electrocardiogram Date: 10/11/24 Atrial sensed,V paced rhythm @ 84 w/ occas. PVC's Chest X-Ray Date: 10/10/24 Findings: + cardiomegaly (mild) and + pulmonary vascular congestion (mild) Echocardiogram Date: 10/11/24 EF: 55% LV Function: normal RWMA: + none Other Findings: + LVH (mild) and + diastolic dysfunction (Grade 2) NL functioning bioprosthetic AV
[2024-10-12] MEDS: SODIUM CHLORIDE 0.9% 1,000 ML IV SCH (11:03)
[2024-10-12] MEDS ORDERED: FLUMAZENIL 0.1 MG/1 ML 10 ML VIAL IV PRN (11:06)
[2024-10-12] MEDS ORDERED: ATROPINE SULFATE 0.1 MG/ML 10ML SYR IV PRN (11:06)
[2024-10-12] MEDS ORDERED: NALOXONE HCL 0.4 MG/1 ML VIAL/CARP IV PRN (11:06)
[2024-10-12] MEDS ORDERED: ONDANSETRON INJ 2 MG/ML 2 ML VIAL IV PRN (11:06)
[2024-10-12] MEDS ORDERED: PROMETHAZINE HCL 6.25 MG in SODIUM CHLORIDE 0.9% 50 ML IV PRN (11:06)
--- NOTE | 2024-10-12 11:28 | History & Physical Bridge Note ---
Date of Service October 12, 2024 History & Physical Bridge Note I have examined the patient, reviewed the History & Physical and in the interval since the performance of the History & Physical I have noted the following changes of clinical significance: no changes noted
[2024-10-12] MEDS ORDERED: MIDAZOLAM HCL 1 MG/ML 2ML VIAL ONE (11:42)
[2024-10-12] MEDS: BUPIVACAINE 0.25% PF 30 ML VIAL ONE (11:46)
--- NOTE | 2024-10-12 12:25 | Post Operative Brief Note ---
Immediate Post Op Note Date of Surgery October 12, 2024 Pre & Post Diagnosis Operation Date: 10/13/24 07:30 Pre diagnosis: left 2nd and 3rd toe osteomyelitis post diagnosis: left 2nd and 3rd toe osteomyelitis I identified the patient and participated in the time-out.: Yes Procedure Operation Date: 10/13/24 07:30 <No data on this case meets the specified criteria> Surgeon Veronica Webster, TAMARM Dental Technologist none Estimated Blood Loss 20 Findings Consistent with Post-Op Diagnosis Specimens swab culture left 3rd toe wound swab culture left foot left 2nd toe left 2nd toe proximal margin left 3rd toe left 3rd toe proximal margin Anesthesia Type MAC Complications none Disposition Accompanied Patient To Recovery: Yes
--- NOTE | 2024-10-12 13:14 | Anesthesiology Progress Note ---
Date of Service October 12, 2024 Anesthesia Post Procedure Vital Signs Vital Signs: Temp Pulse Pulse Pulse Pulse Resp BP 10/12/24 12:50 36.8 C 71 18 122/61 10/12/24 12:40 66 16 126/58 L 10/12/24 12:30 71 16 118/55 L 10/12/24 12:24 36.7 C 70 18 111/75 10/12/24 10:57 37 C 74 20 127/74 10/12/24 07:49 36.9 C 75 18 10/12/24 07:38 36.9 C 79 18 10/12/24 04:12 36.9 C 78 18 10/11/24 23:49 36.8 C 76 18 10/11/24 22:55 75 10/11/24 20:24 37.3 C 76 18 10/11/24 18:35 36.9 C 80 18 10/11/24 15:40 36.8 C 74 21 BP Pulse Ox O2 Del Method O2 Flow Rate 10/12/24 12:50 96 Nasal Cannula 2 10/12/24 12:40 96 Nasal Cannula 2 10/12/24 12:30 91 Room Air 10/12/24 12:24 93 Room Air 10/12/24 10:57 93 Room Air 10/12/24 07:49 134/70 91 Room Air 10/12/24 07:38 10/12/24 04:12 120/69 97 Room Air 10/11/24 23:49 142/98 H 95 Room Air 10/11/24 22:55 10/11/24 20:24 133/80 96 Room Air 10/11/24 18:35 129/81 10/11/24 15:40 118/71 96 Room Air Transfer of Care Handoff Completed per policy Notes Mental Status: alert / awake / arousable Patient Amnestic to Procedure: Yes Nausea / Vomiting: adequately controlled Pain: adequately controlled Airway Patency, RR, SpO2: stable & adequate BP & HR: stable & adequate Hydration State: stable & adequate Anesthetic Complications: no major complications apparent
--- NOTE | 2024-10-12 13:45 | Pharmacy Report ---
Pharmacy Glycemic Short Note 2 - Date of Service October 12, 2024 - Glycemic Short BSG Results (Last 24 hours): 10/11/24 10/11/24 10/12/24 16:14 20:51 05:37 Glucose 169 H POC Glucose 287 H 267 H 10/12/24 10/12/24 10/12/24 05:50 10:49 12:43 Glucose POC Glucose 183 H 132 H 126 H OUTPATIENT ANTIDIABETIC REGIMEN: * NovoLog 5 units SQ QAM, 10 units @ noon, 10 units in afternoon, CF 20 >140mg/dL * Lantus 20 untis SQ BID * HbA1c is unreliable in ESRD patients d/t interactions between the A1c analyzing technique and high levels of urea in ESRD, reduced RBC life span, iron deficiency anemia, and EPO administration. HbA1c > 7.5% in ESRD patient may overestimate the extent of hyperglycemia in ESRD patients. ASSESSMENT: 10/12 * Fasting BSG 183 mg/dL this morning, received 40 units of lantus yesterday. Patient NPO this morning for amputation, plan for ANI tomorrow under anesthesia * Reduced basal AM dose to 15 units, scale for PM for a total ~40-25% reduction today. * Novolog parameters were tightened given increases in prandial BSGs yesterday- monitor 10/11 * Stressors stable. Confirmed MSSA bacteremia * BSG's trending down, although a little slowly. * Will maintain Lantus. Home dose at upper end of range but will titrate down if/when BSG's decrease into goal range to avoid further reduction in BSG * Will maintain Novolog as-is, unless see trend up in BSG's at lunch today. If trends up, will tighten CF and/or CR slightly 10/10 * Otto is a 64 year old male admitted with sepsis and a history of type 2 diabetes mellitus complicated by ESRD on PD. Pharmacy has been consulted to assist with glycemic management while inpatient. * BSG upon admission elevated, missed morning insulin per H&P, likely cause of hyperglycemia. Stat correctional and basal insulin ordered. * Will initiate basal scale up to a weight based stress of 2 and Lantus at about a weight based stress of 2. PLAN FOR INPATIENT GLYCEMIC CONTROL: * Hold outpatient oral diabetes medications * Basal insulin * Lantus 10-15 units SQ BID * Bolus insulin * NovoLog per scale ACHS or Q6hrs while NPO * Goal Range: Low 110 mg/dL - High 140 mg/dL * Correction Factor: 20 mg/dL/unit * Nutritional / Prandial insulin per carb ratio of 1 unit per 7 grams CHO consumed
[2024-10-12] MEDS: ATENOLOL 50 MG TABLET PO SCH (15:20)
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
[2024-10-12] MEDS: POLYETHYLENE (MIRALAX) 17 GM PACK PO SCH (16:01)
[2024-10-12] MEDS: DOCUSATE SODIUM 100 MG CAP PO SCH (20:28)
[2024-10-13 06:26] LABS: Hematocrit (blood only) 30.1 % (42.0-52.0); Hemoglobin 10.3 g/dl (14.0-18.0); Mean Corpuscular Hemoglobin 31.2 pg (25.0-34.0); Mean Corpuscular Volume 91.2 fL (80.0-100.0); Platelet Count 130 K/uL (130-400); RDW Standard Deviation 45.5 fL (36.4-46.3); Red Blood Count 3.30 M/uL (4.70-6.10); White Blood Count 12.42 K/ul (4.8-10.8)
[2024-10-13 06:51] LABS: Anion Gap 14.0 (3-11); Calcium 7.6 mg/dl (8.6-10.3); Carbon Dioxide 24.0 mmol/L (21-32); Chloride 96.0 mmol/L (98-107); Magnesium 2.0 mg/dl (1.7-2.4); Potassium 3.4 mmol/L (3.5-5.1); Sodium 134.0 mmol/L (136-145)
[2024-10-13] MEDS ORDERED: PROPOFOL IV EMULSION 10 MG/ML 20 ML VIAL IV ONE (07:01)
[2024-10-13] MEDS ORDERED: ePHEDrine sulfate 50 MG/5 ML SYR ONE (07:02)
--- NOTE | 2024-10-13 07:05 | Anesthesiology Consultation ---
Date of Service October 13, 2024 Assessment & Plan Chart Review Chart Review: Acceptable Risk for Surgery and Patient NOT seen in Pre Admission Testing Consults Requested none ASA ASA3 Proposed Anesthesia Risk / Benefits Reviewed With: PT / POA / Parent / Guardian, Accepts Plan and Informed Consent Obtained History Surgery Operation Date: 10/12/24 11:30 Proposed Procedures p Left Second and Third Toe Amputations - Veronica Webster DPM Operation Date: 10/13/24 07:30 Proposed Procedures p Transesophageal Echo w/Anesthesia - Geronimo Stanley DO Height/Weight Height: 6 ft 1 in Weight: 106.2 kg Allergies Allergy/AdvReac Type Severity Reaction Status Date / Time daptomycin Allergy Rash Verified 10/10/24 09:48 Medications Home Medications Medication Instructions Recorded Confirmed Last Taken atenolol 50 mg tablet 50 mg PO QAM 03/07/20 10/10/24 07/19/21 atorvastatin 40 mg tablet 80 mg PO QPM 03/07/20 10/10/24 07/18/21 clopidogrel 75 mg tablet 75 mg PO HS 03/07/20 10/10/24 07/18/21 insulin aspart U-100 100 unit/mL 1 sliding scale dose subcut UD 03/07/20 10/10/24 07/19/21 12:00 (3 mL) subcutaneous pen (Novolog 10 units FlexPen U-100 Insulin aspart) insulin glargine 100 unit/mL (3 20 unit subcut BID 03/07/20 10/10/24 07/19/21 mL) subcutaneous pen (Basaglar KwikPen U-100 Insulin) aspirin 81 mg tablet,delayed 81 mg PO DAILY 11/01/21 10/10/24 Unknown release cholecalciferol (vitamin D3) 25 25 mcg PO .3X WEEK 11/01/21 10/10/24 Unknown mcg (1,000 unit) tablet (Vitamin D3) acetaminophen 500 mg tablet 500 - 1,000 mg PO UD PRN Pain 10/10/24 10/10/24 Unknown amlodipine 5 mg tablet 2.5 mg PO QAM 10/10/24 10/10/24 Unknown gabapentin 600 mg tablet 600 mg PO TID 10/10/24 10/10/24 Unknown torsemide 100 mg tablet 100 mg PO DAILY 10/10/24 10/10/24 Unknown Active Medications Generic Name Dose Route Start Last Admin Trade Name Freq PRN Reason Stop Dose Admin Acetaminophen 650 mg 10/10/24 15:31 10/10/24 20:32 Acetaminophen 325 Mg Tab PO 11/09/24 15:30 650 mg Q4H PRN Administration Moderate Pain (Scale 4, 5, 6) Atenolol 50 mg 10/12/24 14:00 10/12/24 15:20 Atenolol 50 Mg Tablet PO 11/11/24 13:59 50 mg QAM ESTHER Administration Atorvastatin Calcium 80 mg 10/10/24 21:00 10/12/24 20:27 Atorvastatin 40 Mg Tab PO 11/09/24 20:59 80 mg QPM ESTHER Administration Clopidogrel Bisulfate 75 mg 10/10/24 21:00 10/12/24 20:27 Clopidogrel Bisulfate 75 Mg Tab PO 11/09/24 20:59 75 mg HS ESTHER Administration Docusate Sodium 100 mg 10/12/24 21:00 10/12/24 20:28 Docusate Sodium 100 Mg Cap PO 11/11/24 20:59 Not Given BID ESTHER Gabapentin 600 mg 10/10/24 15:31 10/12/24 20:27 Gabapentin 600 Mg Tab PO 11/09/24 15:30 600 mg TID ESTHER Administration Heparin Sodium (Porcine) 5,000 units 10/11/24 14:00 10/13/24 06:25 Heparin Sod 5,000 Unit/0.5 Ml Vial SQ 11/10/24 13:59 5,000 units Q8 ESTHER Administration Cefazolin Sodium 1,000 mg in 7.5 mls @ 2.5 mls/min 10/11/24 16:00 10/12/24 15:20 Ancef 1000mg IV 11/22/24 15:59 2.5 mls/min Q24H ESTHER Administration Sodium Chloride 1,000 mls @ 15 mls/hr 10/12/24 10:45 10/12/24 11:34 Nss IV 10/15/24 10:44 Infused .Q24H ESTHER Infusion Insulin Aspart 0 units 10/12/24 06:00 10/13/24 06:25 Insulin Aspart Per Unit Charge SC 11/11/24 05:59 3 units Q6 ESTHER Administration Insulin Glargine 0 units 10/12/24 21:00 10/12/24 20:31 Lantus Per Unit Charge SC 11/09/24 20:59 15 units BID ESTHER Administration Protocol Polyethylene Glycol 17 gm 10/12/24 15:30 10/12/24 16:01 Polyethylene (Miralax) 17 Gm Pack PO 11/11/24 15:29 17 gm DAILY ESTHER Administration Vitamin D 25 mcg 10/10/24 15:31 10/12/24 08:07 Cholecalciferol 25 Mcg (1000 Units) Tab PO 11/09/24 15:30 25 mcg MoWeFr@0900 ESTHER Administration NPO Date Last Intake of Fluids: 10/11/24 Time Last Intake of Fluids: 17:00 Last Intake of Fluids Comment: sip water at 0808 this am with meds Date Last Intake of Solids: 10/11/24 Time Last Intake of Solids: 17:00 Past Medical History Medical History Amputation of left great toe Osteomyelitis Hallux abducto valgus, bilateral Amputated great toe of right foot Diabetes mellitus with neuropathy Diabetic peripheral neuropathy Callus Past Surgical History Surgical History History of revascularization procedure of lower extremity Social History Smoking Status: Former smoker tobacco type: smokeless tobacco Do You Dip or Chew Tobacco: Yes Hx Alcohol Use: Yes Alcohol type: beer alcohol intake frequency: other Alcohol Intake Frequency Comment: "Used To" Hx Substance Use: No Review of Systems ROS Unobtainable: All systems reviewed & are unremarkable except as noted in HPI & below Constitutional: as per Subjective / HPI Physical Exam Vital Signs Last Vital Signs Temp 36.6 C 10/13/24 02:00 Pulse 73 10/13/24 02:00 Resp 18 10/13/24 02:00 BP 139/77 10/13/24 02:00 Pulse Ox 93 10/13/24 02:00 O2 Del Method Room Air 10/13/24 02:00 O2 Flow Rate 2 10/12/24 12:50 Constitutional WD/WN, vitals as above + obese; no acute distress Eyes PERRL, conjunctivae normal, anicteric sclerae ENMT external ear and nose normal, oropharynx normal Mouth: no dentition abnormality Thyromental Distance: > or= 3.5 Finger Breadths Mallampati Class: II Neck trachea midline, no thyromegaly Respiratory normal respiratory effort, lungs clear to auscultation Cardiovascular RRR, no murmur, no edema Musculoskeletal Head/Neck/Chest: normocephalic and head atraumatic Spine: normal cervical ROM and no pain with cervical ROM Extremities: extremities normal to inspection (amputation of toes) and strength 5/5 throughout; full ROM of extremities Skin no rashes, warm and dry Neurologic moves all extremities Motor/Sensory: + sensory deficit Psychiatric A+Ox3, euthymic affect Testing Laboratory Results 10/13/24 05:50 10/13/24 05:50 Hemoglobin A1c 7.6 % (4.5-5.6) H 10/11/24 04:03 10/12/24 05:37 Aerobic Blood Culture - Preliminary Blood No growth in Aerobic bottle after 24 hours. 10/12/24 05:37 Aerobic Blood Culture - Preliminary Blood No growth in Aerobic bottle after 24 hours. 10/12/24 Unknown Gram Stain - Final Toe,Left 10/12/24 Unknown Gram Stain - Final Foot,Left 10/10/24 09:57 Aerobic Blood Culture - Final Blood Staphylococcus aureus Anaerobic Blood Culture - Final Staphylococcus aureus 10/10/24 09:57 Aerobic Blood Culture - Final Blood Staphylococcus aureus Anaerobic Blood Culture - Final Staphylococcus aureus 10/10/24 14:53 Gram Stain - Final Abdomen Aerobic and Anaerobic Culture - Preliminary No growth to date. 10/13/24 10/13/24 10/12/24 06:10 00:03 20:26 POC Glucose 194 H 264 H 233 H Electrocardiogram Date: 10/11/24 Atrial sensed,V paced rhythm @ 84 w/ occas. PVC's Chest X-Ray Date: 10/10/24 Echocardiogram Date: 10/11/24 EF: 55% LV Function: normal RWMA: + none Other Findings: + LVH (mild) and + diastolic dysfunction (Grade 2) NL functioning bioprosthetic AV
--- NOTE | 2024-10-13 07:09 | History & Physical Bridge Note ---
Date of Service October 13, 2024 History & Physical Bridge Note I have examined the patient, reviewed the History & Physical and in the interval since the performance of the History & Physical I have noted the following changes of clinical significance: no changes noted.
[2024-10-13 07:21] LABS: Blood Urea Nitrogen 66.0 mg/dl (6-23); Creatinine Clr Calc Pharmacy 11.4 ml/min; Glucose 164.0 mg/dl (70-99(Fasting))
--- NOTE | 2024-10-13 08:12 | Anesthesiology Progress Note ---
Date of Service October 13, 2024 Anesthesia Post Procedure Vital Signs Vital Signs: Temp Pulse Pulse Resp BP BP Pulse Ox 10/13/24 08:10 73 14 105/59 L 99 10/13/24 07:17 36.9 C 10/13/24 07:12 75 18 122/81 93 10/13/24 02:00 36.6 C 73 18 139/77 93 10/12/24 22:41 36.8 C 79 18 148/90 H 92 10/12/24 19:29 36.8 C 77 18 138/78 93 10/12/24 16:37 10/12/24 15:26 36.7 C 82 16 148/88 H 10/12/24 15:26 36.7 C 76 16 148/88 H 93 10/12/24 13:40 73 138/78 92 10/12/24 13:17 72 154/91 H 92 10/12/24 12:50 36.8 C 71 18 122/61 96 10/12/24 12:40 66 16 126/58 L 96 10/12/24 12:30 71 16 118/55 L 91 10/12/24 12:24 36.7 C 70 18 111/75 93 10/12/24 10:57 37 C 74 20 127/74 93 O2 Del Method O2 Flow Rate 10/13/24 08:10 Oxymask 10 10/13/24 07:17 10/13/24 07:12 Room Air 10/13/24 02:00 Room Air 10/12/24 22:41 Room Air 10/12/24 19:29 Room Air 10/12/24 16:37 Room Air 10/12/24 15:26 10/12/24 15:26 Room Air 10/12/24 13:40 Room Air 10/12/24 13:17 Room Air 10/12/24 12:50 Nasal Cannula 2 10/12/24 12:40 Nasal Cannula 2 10/12/24 12:30 Room Air 10/12/24 12:24 Room Air 10/12/24 10:57 Room Air Transfer of Care Handoff Completed per policy Notes Mental Status: alert / awake / arousable and participated in evaluation Patient Amnestic to Procedure: Yes Nausea / Vomiting: adequately controlled Pain: adequately controlled Airway Patency, RR, SpO2: stable & adequate BP & HR: stable & adequate Hydration State: stable & adequate Anesthetic Complications: no major complications apparent and Pt Satisfied with anesthetic care
--- NOTE | 2024-10-13 08:24 | Post Operative Brief Note ---
Cardiology Brief Post Op Date of Surgery October 13, 2024 Pre & Post Diagnosis Operation Date: 10/13/24 07:30 Preprocedure diagnosis: Bacteremia, assess for vegetation Postprocedure diagnosis: No vegetation on valves or pacemaker leads Procedure Transesophageal echocardiogram procedure note: The patient's vital signs were monitored via the standard fashion. After informed consent was obtained and a timeout was performed the patient was sedated with the assistance of the anesthesia service. The cardiac valves were well-visualized without evidence of vegetation. The right atrial and right ventricular pacemaker leads were adequately visualized without vegetation. Plan: Await results of right hand MRI. No indication for device extraction at this time. Continue antibiotics. Genetics Nurse Geronimo Stanley DO [employer] none Estimated Blood Loss 20 Findings Consistent with Post-Op Diagnosis as noted above Specimens Specimen Description: Anesthesia Type MAC
[2024-10-13] MEDS: TORSEMIDE 100 MG TAB PO SCH (08:49)
[2024-10-13] MEDS: BENZOCAINE/TETRACAIN/BUTAM 50 APPLN/5 GM CAN EXT ONE (09:09)
[2024-10-13] MEDS: POTASSIUM CHLORIDE / WTR 10 MEQ/100 ML PLCT IV ONE (09:10)
--- NOTE | 2024-10-13 09:34 | Dialysis Progress Note ---
Date of Service October 13, 2024 Assessment & Plan Admission and Anticipated Discharge Date Admission Date: October 10, 2024 Subjective Assessment & Plan (1) ESRD on peritoneal dialysis: patient does not have much residual renal function left as he makes only about half a cup of urine per day. he has been doing peritoneal dialysis through a nocturnal cycler at home for the last few months. Previously was on hemodialysis. ESRD secondary to diabetes hypertension and chronic diffuse vascular disease. he has evidence of fluid overload on lower extremity exam as well as lung exam and chest x-ray. his mucous membrane appears dry-- patients with severe chronic medical problems like him always have dry mucous membrane because of salivary gland atrophy and lack of saliva production. So as a result this finding is completely useless to determine volume status in patient like him. labs appear acceptable. k slightly low. For tonight we will again do all 2.5% and do 2500 mL fill volume over 10-12 hours. did explain the patient as well as his that because he is in the hospital there will be some changes with both the volume and the duration and the type of fluid will be using based on his clinical situation. (2) Sepsis: PD fluid negative for peritonitis. No need of IP abx . ID eval done. 1. MSSA bacteremia - ANI--negative. - Vancomycin IV already stopped. Recommend stopping Zosyn IV and switching to Cefazolin 1g q24 and after dialysis on dialysis days. r/o OM of L spine and Left foot. - Agree with MRI L spine and MRI Left foot. S----Seen for PD. NO issues with PD overnight. net UF was 1500 ml. He feels better. No fever now. Blood C/s Grew GPC. PD fluid negative for Peritonitis. ANI negative review of systems as detailed in HPI unless stated otherwise 12 systems reviewed and negative Physical Exam Physical Exam: General: awake, alert, no apparent distress, less confused, Chest: Clear to auscultation, on room air. Cardiac: Regular rate and rhythm, + loud holosystolic murmur, no JVD, normal peripheral pulses, good capillary refill Abdominal: soft not distended and not tender at all. PD exit site normal- appearing Extremities: +1 peripheral edema, chronic skin changes s/p great toe amputations bilaterally - he does have injuries to the left 2nd and 3rd toe whi ch are bloody. + dry gangrene involving the Right 4th and 5th fingers Psych: Flat mood and affect Results & Data Vital Signs (Past 12 Hours) Vital Signs Temp Pulse Resp BP BP Pulse Ox O2 Del Method 10/13/24 08:36 36.7 C 74 14 120/61 91 Room Air 10/13/24 08:20 36.7 C 75 20 147/79 H 94 Room Air 10/13/24 08:15 73 16 119/62 Room Air 10/13/24 08:10 73 14 105/59 L 99 Oxymask 10/13/24 07:17 36.9 C 10/13/24 07:12 75 18 122/81 93 Room Air 10/13/24 02:00 36.6 C 73 18 139/77 93 Room Air 10/12/24 22:41 36.8 C 79 18 148/90 H 92 Room Air O2 Flow Rate 10/13/24 08:36 10/13/24 08:20 10/13/24 08:15 10/13/24 08:10 10 10/13/24 07:17 10/13/24 07:12 10/13/24 02:00 10/12/24 22:41
[2024-10-13] MEDS: INSULIN ASPART PER UNIT CHARGE SC SCH (09:40)
--- NOTE | 2024-10-13 10:55 | Operative Report ---
Post Operative Report Pre & Post Diagnosis Operation Date: 10/12/24 11:30 Pre Diagnosis: left foot osteomyelitis Post Diagnosis: left foot osteomyelitis I identified the patient and participated in the time-out.: Yes Procedure Operation Date: 10/12/24 11:30 Actual Procedures p Left second toe amputation- Veronica Webster DPM s Left second toe amputation- Veronica Webster DPM Surgeon Veronica Webster DPM [facility] none Estimated Blood Loss 20 Findings Consistent with Post-Op Diagnosis Specimens 1. Swab culture obtained from left 3rd toe wound sent for aerobic and anerobic and gram stain. 2. Left 2nd toe sent to pathology 3. Left 2nd proximal phalanx bone for proximal margin sent to pathology. 4. Left 3rd toe sent to pathology 5. Left 3rd proximal phalanx bone for proximal margin sent to pathology. 6. Swab culture left foot surgical wound Anesthesia Type MAC Complications none Disposition Accompanied Patient To Recovery: Yes Indications Patient is a 64-year old male with left second and third toe diabetic toe ulcers with underlying osteomyelitis. Patient presented to [facility] after worsening of his left 2nd and third toe wounds. States he has had the left 2nd toe wound for weeks, but recently he slipped in his bathroom and stubbing his left 2nd and 3rd toes that caused a soft tissue injury. States the wounds did not improve and he started feeling ill. Reported fever, chills, and weakness. In addition, his diabetes has not been well controlled and he went to [facility] Emergency department where he was admitted. Patient had an MRI demonstrating osteomyelitis of left 2nd distal phalanx and osteomyelitis of the left 3rd middle and distal phalanges. With those findings it was recommended a left 2nd and third toe amputation at the level of metatarsophalangeal joints. It was discussed that a transmetatarsal amputation would be a more functional amputation for ambulation, but patient reported that he does not walk much and does not want to consider a transmetatarsal amputation at this time. States he has poor balance and after he had bilateral great toe amputations secondary to diabetic toe wound complicated with osteomyelitis. Reports those prior amputation sites healed slowly, but they did eventfully heal. Discussed with the patient and his the recommended treatment plan of a left 2nd toe and 3rd toe amputations of the left foot. Discussed the possible risks including but not limited to infection, swelling, transfer lesions, wound dehiscence, blood clots, deep venous thrombosis, pulmonary embolism, chronic pain, nerve injury, numbness, loss of limb, loss of life, failure of procedure and need for additional procedures. Discussed risks, benefits, and alternatives to surgery. Patient states he understands and wants to proceed. Surgical consent was reviewed and signed in the preoperative setting. Description of Procedure The patient was brought back into the operating room and placed on the OR table in the supine position. A time was performed in order to correctly identify the patient, planned procedure, and correct side of limb. MAC was performed per the anesthesiologist. 20 cc of 0.25% marcaine plain was administered a left forefoot block under aseptic technique. The left lower extremity was scrubbed, prepped, and draped in the usual aseptic manner. No tourniquet was applied. Attention was then directed to the left 2nd and 3rd toes at the level of the metatarsophalangeal joint (MTPJ) where two semi-elliptical incisions were made with the 15 blade. The incision was deepened down to the level of the left 2nd MTPJ and the 2nd toe was disarticulated and passed from the operative field to the sterile back table. Then the incision was deepened down to the level of the left 3rd MTPJ and the 3rd toe was disarticulated and passed from the operative field to the sterile back table. Copious amount of sterile saline was utilized to irrigate the surgical wound. A swab culture was obtained from the left foot wound and passed from the operative field. The stump extensor and flexors tendons were excised proximally and passed from the operative field. The cartilage of the 2nd and 3rd metatarsal heads appeared healthy. No proximal purulent drainage was visualized. The soft tissue appeared viable without clinical signs of infection. Deep closure was performed utilizing 4-0 Monocryl and the skin was coapted utilizing 3-0 nylon in an interrupted horizontal stich fashion. The incision was dressed with Betadine soaked adaptic, 4x4 gauze, kerlix, ABD pad, and Miguel bandage. The patient tolerated the procedure and anesthesia well with all vital signs stable and vascular status intact to the left foot. Attention was then directed to the sterile back table to obtain specimens from the left 2nd and 3rd toes: 1. Swab culture obtained from left 3rd toe wound sent for aerobic and anaerobic and gram stain. 2. Left 2nd toe sent to pathology 3. Left 2nd proximal phalanx bone for proximal margin sent to pathology. 4. Left 3rd toe sent to pathology 5. Left 3rd proximal phalanx bone for proximal margin sent to pathology. The patient was transferred to recovery for brief post operative monitoring and will be transferred back to the floor for continued medical management. We will continue to follow the patient. I attest to the content of the Intraoperative Record and any orders documented therein. Any exceptions are noted below.
--- NOTE | 2024-10-13 10:55 | Pharmacy Report ---
Pharmacy Glycemic Short Note 2 - Date of Service October 13, 2024 - Glycemic Short BSG Results (Last 24 hours): 10/12/24 10/12/24 10/12/24 12:43 16:19 20:26 Glucose POC Glucose 126 H 143 H 233 H 10/13/24 10/13/24 10/13/24 00:03 05:50 06:10 Glucose 164 H POC Glucose 264 H 194 H 10/13/24 08:45 Glucose POC Glucose 147 H OUTPATIENT ANTIDIABETIC REGIMEN: * NovoLog 5 units SQ QAM, 10 units @ noon, 10 units in afternoon, CF 20 >140mg/dL * Lantus 20 untis SQ BID * HbA1c is unreliable in ESRD patients d/t interactions between the A1c analyzing technique and high levels of urea in ESRD, reduced RBC life span, iron deficiency anemia, and EPO administration. HbA1c > 7.5% in ESRD patient may overestimate the extent of hyperglycemia in ESRD patients. ASSESSMENT: 10/13 * Diet resumed this AM after ANI * Fasting BSG elevated. Will increase Lantus * One post-prandial BSG elevated yesterday after tightening Novolog parameters. Will not make further adjustments for now, but may consider tightening Novolog parameters if post-prandial BSG's remain elevated. 10/12 * Fasting BSG 183 mg/dL this morning, received 40 units of lantus yesterday. Patient NPO this morning for amputation, plan for ANI tomorrow under anesthesia * Reduced basal AM dose to 15 units, scale for PM for a total ~40-25% reduction today. * Novolog parameters were tightened given increases in prandial BSGs yesterday- monitor 10/11 * Stressors stable. Confirmed MSSA bacteremia * BSG's trending down, although a little slowly. * Will maintain Lantus. Home dose at upper end of range but will titrate down if/when BSG's decrease into goal range to avoid further reduction in BSG * Will maintain Novolog as-is, unless see trend up in BSG's at lunch today. If trends up, will tighten CF and/or CR slightly 10/10 * Otto is a 64 year old male admitted with sepsis and a history of type 2 diabetes mellitus complicated by ESRD on PD. Pharmacy has been consulted to assist with glycemic management while inpatient. * BSG upon admission elevated, missed morning insulin per H&P, likely cause of hyperglycemia. Stat correctional and basal insulin ordered. * Will initiate basal scale up to a weight based stress of 2 and Lantus at about a weight based stress of 2. PLAN FOR INPATIENT GLYCEMIC CONTROL: * Hold outpatient oral diabetes medications * Basal insulin * Lantus 15-20 units SQ BID * Bolus insulin * NovoLog per scale ACHS or Q6hrs while NPO * Goal Range: Low 110 mg/dL - High 140 mg/dL * Correction Factor: 20 mg/dL/unit * Nutritional / Prandial insulin per carb ratio of 1 unit per 7 grams CHO consumed
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
--- NOTE | 2024-10-13 13:54 | Magnetic Resonance Report ---
MR hand RT wo con CLINICAL HISTORY: dry gangrene rt 4th 5th finger, ro OM/infection COMPARISON STUDY: No x-ray available for comparison FINDINGS: There is mild motion artifact. There is mild soft tissue edema at the hand with no abscess or hematoma seen. There is increased T2 and decreased T1 signal at the fourth and fifth distal phalan ges with cortical irregularity consistent with osteomyelitis. No other evidence of osteomyelitis seen . No fracture or dislocation. IMPRESSION: Findings consistent with osteomyelitis at the fourth and fifth distal phalanges. Suggest follow-up x-ray of the hand to rule out fracture as the cause of the abnormal signal. ACT 112: Negative or not required by law. Electronically signed by: Prabhu Cordova M.D. 10/13/2024 1:53 PM
[2024-10-13 14:54] LABS: Appearance Urine Turbid (Clear); Bacteria Urine Automated 4+ (None Seen); Glucose Urine UA Negative (Negative); RBC Urine Automated 0-2 /hpf (0-2); WBC Urine Automated >50 /hpf (0-5)
--- NOTE | 2024-10-13 17:36 | Orthopedic Consultation ---
Date of Consultation October 13, 2024 Assessment & Plan (1) Osteomyelitis of finger: (2) Gangrene of finger: Plan He exhibits both osteomyelitis and gangrene. Given the recent sepsis, I am concerned that he could have his necrotic finger tips as a possible source of infection. I discussed with him and his family amputation of the fingers will plan for: 1 right ring finger amputation at distal phalanx level 2 right small finger amputation at distal phalanx level Risk and benefits have been discussed including but not limited to stiffness failure to improve, wound breakdown, infection. I counseled him that he is at high risk of infection given that his hemoglobin A1c is elevated at 9. Will plan for local MAC anesthesia. Approximately 30 minute surgical time History of Present Illness Reason for Consultation: Right hand gangrene Requesting Physician: Dr. Emery Attending Physician: Alexia Emery MD History of Present Illness This is a gentleman with progressive gangrene of the digits. He is admitted to the hospital with sepsis and had foot amputation recently. Hospitalist has consulted me with request for amputations of the 4th and 5th digits due to gangrene. Patient notes some pain in the area. Gangrene has been progressive for about 6 months Allergies Allergy/AdvReac Type Severity Reaction Status Date / Time daptomycin Allergy Rash Verified 10/10/24 09:48 Home Medications Medication Instructions Recorded Confirmed Type atenolol 50 mg tablet 50 mg PO QAM 03/07/20 10/10/24 History atorvastatin 40 mg tablet 80 mg PO QPM 03/07/20 10/10/24 History clopidogrel 75 mg tablet 75 mg PO HS 03/07/20 10/10/24 History insulin aspart U-100 100 unit/mL 1 sliding scale dose subcut UD 03/07/20 10/10/24 History (3 mL) subcutaneous pen (Novolog FlexPen U-100 Insulin aspart) insulin glargine 100 unit/mL (3 20 unit subcut BID 03/07/20 10/10/24 History mL) subcutaneous pen (Basaglar KwikPen U-100 Insulin) aspirin 81 mg tablet,delayed 81 mg PO DAILY 11/01/21 10/10/24 History release cholecalciferol (vitamin D3) 25 25 mcg PO .3X WEEK 11/01/21 10/10/24 History mcg (1,000 unit) tablet (Vitamin D3) acetaminophen 500 mg tablet 500 - 1,000 mg PO UD PRN Pain 10/10/24 10/10/24 History amlodipine 5 mg tablet 2.5 mg PO QAM 10/10/24 10/10/24 History gabapentin 600 mg tablet 600 mg PO TID 10/10/24 10/10/24 History torsemide 100 mg tablet 100 mg PO DAILY 10/10/24 10/10/24 History Patient History Medical History Amputation of left great toe Osteomyelitis Hallux abducto valgus, bilateral Amputated great toe of right foot Diabetes mellitus with neuropathy Diabetic peripheral neuropathy Callus Surgical History History of revascularization procedure of lower extremity Social History Smoking Status: Former smoker Tobacco Type: Smokeless Tobacco (Dip or Chew) Do You Dip or Chew Tobacco: Yes; Tobacco Cessation Education Requested by Patient: No Hx Alcohol Use: Yes Alcohol type: beer Hx Substance Use: No Preferred Language: Cameroonian Communication Ability: Effective Visual Impairment: Limited Hearing Ability: Normal Field Examiner Required: No Beliefs That Will Affect Care: None marital status: Current Living Situation: Spouse current occupational status: employed 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 This does involve the nail bed as well. There is no obvious gross evidence of infection, but I cannot ascertain whether or not there is purulence in the area. Right small finger examination: He has gangrene to the tip of the finger to a smaller degree. No gross infection. This involves approximately 30% of the distal phalanx. Results & Data Vital Signs (Past 12 Hours) Vital Signs Temp Pulse Pulse Pulse Resp BP BP 10/13/24 15:38 75 10/13/24 15:28 36.6 C 74 21 140/61 10/13/24 11:15 36.8 C 74 18 141/96 H 10/13/24 10:02 75 18 128/91 10/13/24 09:00 10/13/24 08:50 36.7 C 73 18 138/105 H 10/13/24 08:36 36.7 C 74 14 120/61 10/13/24 08:20 36.7 C 75 20 147/79 H 10/13/24 08:15 73 16 119/62 10/13/24 08:10 73 14 105/59 L 10/13/24 07:17 36.9 C 10/13/24 07:12 75 18 122/81 10/13/24 07:00 74 Pulse Ox O2 Del Method O2 Flow Rate 10/13/24 15:38 10/13/24 15:28 95 Room Air 10/13/24 11:15 97 Room Air 10/13/24 10:02 95 Room Air 10/13/24 09:00 Room Air 10/13/24 08:50 94 Room Air 10/13/24 08:36 91 Room Air 10/13/24 08:20 94 Room Air 10/13/24 08:15 Room Air 10/13/24 08:10 99 Oxymask 10 10/13/24 07:17 10/13/24 07:12 93 Room Air 10/13/24 07:00 Diagnostic Findings MRI shows osteomyelitis of the distal phalanx of the 4th and 5th digits
[2024-10-14] MEDS ORDERED: Nursing to Pharmacy Communication SCH ×2 (00:15→16:30)
[2024-10-14 06:03] LABS: Hematocrit (blood only) 29.6 % (42.0-52.0); Hemoglobin 10.4 g/dl (14.0-18.0); Mean Corpuscular Hemoglobin 31.9 pg (25.0-34.0); Mean Corpuscular Volume 90.8 fL (80.0-100.0); Platelet Count 145 K/uL (130-400); RDW Standard Deviation 44.0 fL (36.4-46.3); Red Blood Count 3.26 M/uL (4.70-6.10); White Blood Count 12.58 K/ul (4.8-10.8)
[2024-10-14 06:28] LABS: Anion Gap 13.0 (3-11); Blood Urea Nitrogen 70.0 mg/dl (6-23); Calcium 7.8 mg/dl (8.6-10.3); Carbon Dioxide 25.0 mmol/L (21-32); Chloride 95.0 mmol/L (98-107); Creatinine Clr Calc Pharmacy 11.9 ml/min; Glucose 230.0 mg/dl (70-99(Fasting)); Magnesium 2.0 mg/dl (1.7-2.4); Potassium 3.6 mmol/L (3.5-5.1); Sodium 133.0 mmol/L (136-145)
[2024-10-14] MEDS: INSULIN ASPART PER UNIT CHARGE SC SCH ×2 (06:34→17:47)
--- NOTE | 2024-10-14 08:31 | Anesthesiology Consultation ---
Date of Service October 14, 2024 Assessment & Plan Chart Review Chart Review: Acceptable Risk for Surgery and Patient NOT seen in Pre Admission Testing Consults Requested none ASA ASA4 History Surgery Operation Date: 10/12/24 11:30 Proposed Procedures p Left Second and Third Toe Amputations - Veronica Webster DPM Operation Date: 10/13/24 07:30 Proposed Procedures p Transesophageal Echo w/Anesthesia - Geronimo Stanley DO Operation Date: 10/14/24 07:00 Proposed Procedures p Right Amputation 4th and 5th Fingers - Pepito Jean-Baptiste MD Height/Weight Height: 6 ft 1 in Weight: 103.9 kg Allergies Allergy/AdvReac Type Severity Reaction Status Date / Time daptomycin Allergy Rash Verified 10/10/24 09:48 Medications Home Medications Medication Instructions Recorded Confirmed Last Taken atenolol 50 mg tablet 50 mg PO QAM 03/07/20 10/10/24 07/19/21 atorvastatin 40 mg tablet 80 mg PO QPM 03/07/20 10/10/24 07/18/21 clopidogrel 75 mg tablet 75 mg PO HS 03/07/20 10/10/24 07/18/21 insulin aspart U-100 100 unit/mL 1 sliding scale dose subcut UD 03/07/20 10/10/24 07/19/21 12:00 (3 mL) subcutaneous pen (Novolog 10 units FlexPen U-100 Insulin aspart) insulin glargine 100 unit/mL (3 20 unit subcut BID 03/07/20 10/10/24 07/19/21 mL) subcutaneous pen (Basaglar KwikPen U-100 Insulin) aspirin 81 mg tablet,delayed 81 mg PO DAILY 11/01/21 10/10/24 Unknown release cholecalciferol (vitamin D3) 25 25 mcg PO .3X WEEK 11/01/21 10/10/24 Unknown mcg (1,000 unit) tablet (Vitamin D3) acetaminophen 500 mg tablet 500 - 1,000 mg PO UD PRN Pain 10/10/24 10/10/24 Unknown amlodipine 5 mg tablet 2.5 mg PO QAM 10/10/24 10/10/24 Unknown gabapentin 600 mg tablet 600 mg PO TID 10/10/24 10/10/24 Unknown torsemide 100 mg tablet 100 mg PO DAILY 10/10/24 10/10/24 Unknown Active Medications Generic Name Dose Route Start Last Admin Trade Name Freq PRN Reason Stop Dose Admin Acetaminophen 650 mg 10/10/24 15:31 10/10/24 20:32 Acetaminophen 325 Mg Tab PO 11/09/24 15:30 650 mg Q4H PRN Administration Moderate Pain (Scale 4, 5, 6) Amlodipine Besylate 2.5 mg 10/13/24 09:00 10/14/24 08:16 Amlodipine Besylate 5 Mg Tab PO 11/12/24 08:59 2.5 mg QAM ESTHER Administration Atenolol 50 mg 10/12/24 14:00 10/14/24 08:15 Atenolol 50 Mg Tablet PO 11/11/24 13:59 50 mg QAM ESTHER Administration Atorvastatin Calcium 80 mg 10/10/24 21:00 10/13/24 20:58 Atorvastatin 40 Mg Tab PO 11/09/24 20:59 80 mg QPM ESTHER Administration Clopidogrel Bisulfate 75 mg 10/10/24 21:00 10/13/24 20:58 Clopidogrel Bisulfate 75 Mg Tab PO 11/09/24 20:59 75 mg HS ESTHER Administration Docusate Sodium 100 mg 10/12/24 21:00 10/14/24 08:16 Docusate Sodium 100 Mg Cap PO 11/11/24 20:59 Not Given BID ESTHER Gabapentin 600 mg 10/10/24 15:31 10/14/24 08:15 Gabapentin 600 Mg Tab PO 11/09/24 15:30 600 mg TID ESTHER Administration Heparin Sodium (Porcine) 5,000 units 10/11/24 14:00 10/13/24 13:58 Heparin Sod 5,000 Unit/0.5 Ml Vial SQ 11/10/24 13:59 5,000 units Q8 ESTHER Administration Cefazolin Sodium 1,000 mg in 7.5 mls @ 2.5 mls/min 10/11/24 16:00 10/13/24 15:50 Ancef 1000mg IV 11/22/24 15:59 2.5 mls/min Q24H ESTHER Administration Sodium Chloride 1,000 mls @ 15 mls/hr 10/12/24 10:45 10/13/24 09:38 Nss IV 10/15/24 10:44 Not Given .Q24H ESTHER Insulin Aspart 0 units 10/14/24 06:00 10/14/24 06:34 Insulin Aspart Per Unit Charge SC 11/13/24 05:59 6 units Q6 ESTHER Administration Insulin Glargine 0 units 10/12/24 21:00 10/14/24 08:16 Lantus Per Unit Charge SC 11/09/24 20:59 25 units BID ESTHER Administration Protocol Polyethylene Glycol 17 gm 10/12/24 15:30 10/14/24 08:17 Polyethylene (Miralax) 17 Gm Pack PO 11/11/24 15:29 Not Given DAILY ESTHER Torsemide 100 mg 10/13/24 09:00 10/14/24 08:15 Torsemide 100 Mg Tab PO 11/12/24 08:59 100 mg DAILY ESTHER Administration Vitamin D 25 mcg 10/10/24 15:31 10/14/24 08:16 Cholecalciferol 25 Mcg (1000 Units) Tab PO 11/09/24 15:30 25 mcg MoWeFr@0900 ESTHER Administration NPO Last Intake of Fluids Comment: sip water at 0808 this am with meds Past Medical History Medical History Amputation of left great toe Osteomyelitis Hallux abducto valgus, bilateral Amputated great toe of right foot Diabetes mellitus with neuropathy Diabetic peripheral neuropathy Callus ASCVD AO CAD s/p CABG/AVR HTN/HLD PVD Diabetic PN Exercise / Class Metabolic Activity III < 4 Walking/Shop/Light housework Past Surgical History Surgical History History of revascularization procedure of lower extremity Past Anesthesia History No Hx of Anesthesia Complications and No Family Hx of Anesthesia Complications History of PONV No Hx of PONV and No Hx of Motion Sickness Social History Smoking Status: Former smoker tobacco type: smokeless tobacco Do You Dip or Chew Tobacco: Yes Hx Alcohol Use: Yes Alcohol type: beer alcohol intake frequency: other Alcohol Intake Frequency Comment: "Used To" Hx Substance Use: No Physical Exam Vital Signs Last Vital Signs Temp 36.4 C L 10/14/24 08:08 Pulse 72 10/14/24 08:08 Resp 18 10/14/24 08:08 BP 152/90 H 10/14/24 07:41 Pulse Ox 94 10/14/24 07:41 O2 Del Method Room Air 10/14/24 07:41 O2 Flow Rate 10 10/13/24 08:10 Testing Laboratory Results 10/14/24 05:36 10/14/24 05:36 Hemoglobin A1c 7.6 % (4.5-5.6) H 10/11/24 04:03 Urine Color Dark Yellow 10/13/24 14:22 Urine Appearance Turbid (Clear) A 10/13/24 14:22 Urine pH 5.5 (4.5-7.5) 10/13/24 14:22 Ur Specific [place] 1.020 (1.000-1.030) 10/13/24 14:22 Urine Protein 2+ (Negative) H 10/13/24 14:22 Urine Glucose (UA) Negative (Negative) 10/13/24 14:22 Urine Ketones Trace (Negative) H 10/13/24 14:22 Urine Nitrite Negative (Negative) 10/13/24 14:22 Ur Leukocyte Esterase 3+ (Negative) H 10/13/24 14:22 Urine WBC (Auto) >50 /hpf (0-5) H 10/13/24 14:22 Urine RBC (Auto) 0-2 /hpf (0-2) 10/13/24 14:22 U Hyaline Cast (Auto) 11-20 /lpf (0-2) H 10/13/24 14:22 U Epithel Cells (Auto) 3-5 /hpf (0-2) H 10/13/24 14:22 Urine Bacteria (Auto) 4+ (None Seen) H 10/13/24 14:22 10/12/24 Unknown Gram Stain - Final Toe,Left Aerobic and Anaerobic Culture - Preliminary Staphylococcus aureus 10/12/24 05:37 Aerobic Blood Culture - Preliminary Blood No growth in Aerobic bottle after 48 hours. Anaerobic Blood Culture - Final 10/12/24 05:37 Aerobic Blood Culture - Preliminary Blood Gram positive cocci clusters Anaerobic Blood Culture - Final 10/10/24 14:53 Gram Stain - Final Abdomen Aerobic and Anaerobic Culture - Preliminary No growth to date. 10/12/24 Unknown Gram Stain - Final Foot,Left Aerobic and Anaerobic Culture - Preliminary Low counts mixed probable skin microbiota. 10/10/24 09:57 Aerobic Blood Culture - Final Blood Staphylococcus aureus Anaerobic Blood Culture - Final Staphylococcus aureus 10/10/24 09:57 Aerobic Blood Culture - Final Blood Staphylococcus aureus Anaerobic Blood Culture - Final Staphylococcus aureus 10/14/24 10/13/24 06:29 23:44 POC Glucose 250 H 292 H Electrocardiogram Date: 10/10/24 Findings: + pertinent finding (Atrial sensed,V-paced rhythm @ 84 w/ occas. PVC's) Chest X-Ray Date: 10/10/24 Findings: + cardiomegaly and + pulmonary vascular congestion (mild) Echocardiogram Date: 10/13/24 EF: 55% LV Function: normal RWMA: + none Valvular Disease: + no significant valvular disease No evidence of valvular vegetations;Bioprosthetic AV is functioning well
--- NOTE | 2024-10-14 09:33 | Dialysis Progress Note ---
Date of Service October 14, 2024 Assessment & Plan Admission and Anticipated Discharge Date Admission Date: October 10, 2024 Subjective Assessment & Plan (1) ESRD on peritoneal dialysis: patient does not have much residual renal function left as he makes only about half a cup of urine per day. he has been doing peritoneal dialysis through a nocturnal cycler at home for the last few months. Previously was on hemodialysis. ESRD secondary to diabetes hypertension and chronic diffuse vascular disease. he has evidence of fluid overload on lower extremity exam as well as lung exam and chest x-ray. labs appear acceptable. k slightly low but today normal. For tonight we will again do all 2.5% and do 2500 mL fill volume over 10-12 hours. did explain the patient as well as his that because he is in the hospital there will be some changes with both the volume and the duration and the type of fluid will be using based on his clinical situation. (2) Sepsis: PD fluid negative for peritonitis. No need of IP abx . ID eval done. MSSA bacteremia. ANI--negative. getting Some Amputations S----Seen for PD. NO issues with PD overnight. good UF--1800 ml. He feels better. No fever now. review of systems as detailed in HPI unless stated otherwise 12 systems reviewed and negative Physical Exam Physical Exam: General: awake, alert, no apparent distress, less confused, Chest: Clear to auscultation, on room air. Cardiac: Regular rate and rhythm, + loud holosystolic murmur, no JVD, normal peripheral pulses, good capillary refill Abdominal: soft not distended and not tender at all. PD exit site normal- appearing Extremities: +1 peripheral edema, chronic skin changes s/p great toe amputations bilaterally - he does have injuries to the left 2nd and 3rd toe which are bloody. + dry gangrene involving the Right 4th and 5th fingers Psych: Flat mood and affect Results & Data Vital Signs (Past 12 Hours) Vital Signs Temp Pulse Resp BP Pulse Ox O2 Del Method 10/14/24 08:08 36.4 C L 72 18 10/14/24 07:41 36.4 C L 72 18 152/90 H 94 Room Air 10/14/24 03:36 36.5 C 70 18 146/83 H 92 Room Air 10/13/24 22:38 36.4 C L 78 18 132/93 95 Room Air
--- NOTE | 2024-10-14 10:28 | Cardiology Progress Note ---
Date of Service October 14, 2024 Assessment & Plan (1) Sepsis: (2) Staphylococcus aureus bacteremia with sepsis: (3) S/P cardiac pacemaker procedure: (4) S/P AVR (aortic valve replacement): (5) CAD (coronary artery disease): Plan Assessment: Patient admitted with febrile illness, staph bacteremia on BC x2 with elevated lactate and WBC also noted on admission. Multiple sources of infection noted. Sepsis Staphylococcus aureus bacteremia with sepsis -Foot MRI with osteomyelitis - s/p ambulation of the 2nd and 3rd toes on left foot -Hand MRI with osteomyelitis of 4th and 5th digits right hand - to undergo surgical amputation today -ANI negative for vegetation on AVR and pacemaker leads CAD s/p AVR s/p PPM -Minimal elevation in troponin on admission with no complaints of angina or equivalent. -Echo shows preserved LVEF and no wall motion abnormalities. AVR with normal function and gradients. -ANI with appropriate function of AVR, no vegetation -Continue Statin therapy, ASA and Plavix --Continue Atenolol and Amlodipine r -Device interrogation with no alarms or events. ESRD on PD -No sign of infection per peritoneal fluid PVD -history of significant vascular disease on dual antiplatelet therapy -S/P REIA stent, R SFA/pop lithotripsy/angioplasty (for occlusion), R PT/peroneal angioplasty by on 07/08/24. -He had recent stent and intervention in June 2024 - continue Plavix. -ASA held on admission given need for multiple procedures. At this time, multiple sources of infection have been found including osteomyelitis of the left foot and right hand. No evidence of endocarditis of his AVR. No vegetation on pacemaker leads per ANI. He initially had 2/2 + blood cultures positive on 10/10 Repeat blood culture on 10/12 with 1 out of 2 positive for staph aureus Left toe culture + for staph aureus Repeat blood cultures drawn today 10/14 - pending If blood cultures remain negative after amputation of the toes and right fingers, it is possible we may not need to remove pacemaker as his extremity wounds were likely culprit of the acute bacteremia. Continue antibiotics. Will follow. Case has been discussed with Dr. Stanley. Further recommendations regarding plan of care as per his assessment. I spent a total of 40 minutes on the date of service in preparation, delivery, documentation of the care provided to the patient excluding any time spent in the performance of separately billed services. Marietta Nixon PA-C [facility] Cardiology [facility] Admission and Anticipated Discharge Date Admission Date: October 10, 2024 Supervising Physician Co-Signing Physician Notes Attending attestation: Case reviewed with the advanced practitioner. I have personally performed a history and physical examination on the patient. I have reviewed the advanced practitioner's documentation on the date of service referenced in note, and I agree with, and take responsibility for the plan of care. Patient seen post operatively at 1600 , back in room 212. Feeling well. Underwent amputation of the tips of the 4th and 5th fingers of right hand. Continue antibiotics. Await results of repeat cultures. I spent a total of 20 minutes coordinating, documenting, and providing care for this patient excluding time spent in the performance of separately billed services or time spent by another provider. Geronimo Stanley, Subjective Patient resting in bed comfortably. NPO for finger amputation later today due to gangrene. No recurrent fever or chills. Ongoing abdominal pain and back pain noted. No nausea or vomiting. No chest pain or SOB. Review of Systems Review of Systems: All systems reviewed & are unremarkable except as noted in HPI & below Physical Exam Constitutional: WD/WN, vitals as above average body habitus; no acute distress Neck: trachea midline, no thyromegaly normal visual inspection and trachea midline Respiratory: normal respiratory effort, lungs clear to auscultation normal respiratory effort; no cough Cardiovascular: Rate/Rhythm: regular rate and regular rhythm Heart Sounds: normal S1 and normal S2 Vessels: dorsalis pedis pulses present; no JVD Extremities: no edema Musculoskeletal: Extremities: + hand abnormality (gangrene of the 4th and 5th digits) Right Skin: + wound (boot on left foot s/p amputatio n of left 2nd and 3rd toe amputation) Psychiatric: A+Ox3, euthymic affect Results & Data Vital Signs (Past 12 Hours) Vital Signs Temp Pulse Resp BP Pulse Ox O2 Del Method 10/14/24 08:08 36.4 C L 72 18 10/14/24 07:41 36.4 C L 72 18 152/90 H 94 Room Air 10/14/24 03:36 36.5 C 70 18 146/83 H 92 Room Air 10/13/24 22:38 36.4 C L 78 18 132/93 95 Room Air Laboratory Results CBC 10/14/24 Range/Units 05:36 WBC 12.58 H (4.8-10.8) K/ul RBC 3.26 L (4.70-6.10) M/uL Hgb 10.4 L (14.0-18.0) g/dl Hct 29.6 L (42.0-52.0) % Plt Count 145 (130-400) K/uL Comprehensive Metabolic Panel 10/14/24 Range/Units 05:36 Sodium 133 L (136-145) mmol/L Potassium 3.6 (3.5-5.1) mmol/L Chloride 95 L (98-107) mmol/L Carbon Dioxide 25 (21-32) mmol/L BUN 70 H (6-23) mg/dl Creatinine 8.11 H* D (0.6-1.4) mg/dl Glucose 230 H (70-99(Fasting)) mg/dl Calcium 7.8 L (8.6-10.3) mg/dl Intake and Output 10/13/24 10/14/24 10/14/24 22:59 06:59 14:59 Intake Total 355 / 1055 Output Total 151 / 3148 790 / 3148 1834 / 1834 Balance 204 / -2093 -790 / -2093 -1834 / -1834 Intake: Oral 355 / 955 Output: Urine 150 / 1215 790 / 1215 Peritoneal Dialysis 1834 / 1834 Ultrafiltration Amount # Bowel Movements Other: Other Intake Source NPO Weight 106.2 kg 103.9 kg 103.9 kg Weight Measurement Method Built in [facility] Built in [facility] Patient Weight 10/15/24 06:59 Weight 103.9 kg Diagnostic Findings Telemetry reviewed: atrial sensed chronic ventricular pacing in the 70-80's. Occ PVC ANI report reviewed dated 10/13/24: LVEF at 55-60% No evidence of valvular vegetation Prosthetic AV is well visualized with normal prosthetic leaflet excursion. Prosthetic stenosis and prosthetic regurg are absent. Pacemaker leads are well visualized without evidence of vegetation Medications Administered Current Inpatient Medications Acetaminophen (Acetaminophen 325 Mg Tab) 650 mg PO Q4H PRN PRN Reason: Moderate Pain (Scale 4, 5, 6) Stop: 11/09/24 15:30 Last Admin: 10/10/24 20:32 Dose: 650 mg Amlodipine Besylate (Amlodipine Besylate 5 Mg Tab) 2.5 mg PO QAM [facility] Stop: 11/12/24 08:59 Last Admin: 10/14/24 08:16 Dose: 2.5 mg Atenolol (Atenolol 50 Mg Tablet) 50 mg PO QAM [facility] Stop: 11/11/24 13:59 Last Admin: 10/14/24 08:15 Dose: 50 mg Atorvastatin Calcium (Atorvastatin 40 Mg Tab) 80 mg PO QPM ESTHER Stop: 11/09/24 20:59 Last Admin: 10/13/24 20:58 Dose: 80 mg Clopidogrel Bisulfate (Clopidogrel Bisulfate 75 Mg Tab) 75 mg PO HS ESTHER Stop: 11/09/24 20:59 Last Admin: 10/13/24 20:58 Dose: 75 mg Dextrose (Dextrose 50% 50 Ml Syringe) 25 - 50 ml IV UD PRN; Protocol PRN Reason: Hypoglycemia Protocol Stop: 11/09/24 15:30 Diclofenac Sodium (Diclofenac Sod 1% Gel 100 Gm Tube) 4 gm EXT Q6H ESTHER; Protocol Stop: 11/13/24 10:29 Docusate Sodium (Docusate Sodium 100 Mg Cap) 100 mg PO BID [facility] Stop: 11/11/24 20:59 Last Admin: 10/14/24 08:16 Dose: Not Given Gabapentin (Gabapentin 600 Mg Tab) 600 mg PO TID ESTHER Stop: 11/09/24 15:30 Last Admin: 10/14/24 08:15 Dose: 600 mg Glucagon (Glucagon For Inj 1 Mg Vial) 1 mg SQ UD PRN; Protocol PRN Reason: Hypoglycemia Protocol Stop: 11/09/24 15:30 Glucose (Glucose 40% Gel 15 Gm Tube) 15 - 30 gm PO UD PRN; Protocol PRN Reason: Hypoglycemia Protocol Stop: 11/09/24 15:30 Glucose (Glucose 10 Tab/Tube) 4 - 8 tab PO UD PRN; Protocol PRN Reason: Hypoglycemia Protocol Stop: 11/09/24 15:30 Heparin Sodium (Porcine) (Heparin Sod 5,000 Unit/0.5 Ml Vial) 5,000 units SQ Q8 ESTHER Stop: 11/10/24 13:59 Last Admin: 10/13/24 13:58 Dose: 5,000 units Cefazolin Sodium (Ancef 1000mg) 1,000 mg in 7.5 mls @ 2.5 mls/min IV Q24H [facility] Stop: 11/22/24 15:59 Last Admin: 10/13/24 15:50 Dose: 2.5 mls/min Sodium Chloride (Nss) 1,000 mls @ 15 mls/hr IV .Q24H [facility] Stop: 10/15/24 10:44 Last Admin: 10/13/24 09:38 Dose: Not Given Insulin Aspart (Insulin Aspart Per Unit Charge) 0 units SC Q6 [facility] Stop: 11/13/24 05:59 Last Admin: 10/14/24 06:34 Dose: 6 units Insulin Glargine (Lantus Per Unit Charge) 0 units SC BID [facility]; Protocol Stop: 11/09/24 20:59 Last Admin: 10/14/24 08:16 Dose: 25 units Miscellaneous (Carbohydrates For Hypoglycemia ) 15 - 30 gm PO UD PRN PRN Reason: Hypoglycemia Protocol Stop: 11/09/24 15:30 Miscellaneous Information (Pharmacy Glycemic Mgmt Consult) 1 each N/A UD PRN; Protocol PRN Reason: Consult Stop: 11/09/24 11:44 Ondansetron HCl (Ondansetron Inj 2 Mg/Ml 2 Ml Vial) 4 mg IV Q4H PRN PRN Reason: Nausea And Vomiting Stop: 11/09/24 15:30 Oxycodone HCl (Oxycodone Hcl Ir 5 Mg Tab (Immediate Release)) 5 mg PO Q6H PRN PRN Reason: Pain Stop: 10/27/24 13:00 Last Admin: 10/14/24 10:24 Dose: 5 mg Polyethylene Glycol (Polyethylene (Miralax) 17 Gm Pack) 17 gm PO DAILY [facility] Stop: 11/11/24 15:29 Last Admin: 10/14/24 08:17 Dose: Not Given Torsemide (Torsemide 100 Mg Tab) 100 mg PO DAILY [facility] Stop: 11/12/24 08:59 Last Admin: 10/14/24 08:15 Dose: 100 mg Vitamin D (Cholecalciferol 25 Mcg (1000 Units) Tab) 25 mcg PO MoWeFr@0900 [facility] Stop: 11/09/24 15:30 Last Admin: 10/14/24 08:16 Dose: 25 mcg PG Care Time/CCT Total # of Minutes Spent Total Time Spent with Patient: Total time spent is greater than 50% in coordination of care (as documented) at patient's floor/unit and/or counseling patient: Coding Level of Care Code 64892 SUB INP/OBS CARE 3/50MIN Diagnoses Sepsis A41.9; R65.20; G93.41 Sepsis acute organ dysfunction status: with acute organ dysfunction Sepsis type: sepsis due to unspecified organism Severe sepsis acute organ dysfunction type: encephalopathy Severe sepsis shock status: without septic shock Staphylococcus aureus bacteremia with sepsis A41.01 S/P cardiac pacemaker procedure Z95.0 S/P AVR (aortic valve replacement) Z95.2 Coronary artery disease involving [place] coronary artery of [place] heart without angina pectoris I25.10 Associated angina: without angina Coronary Disease-Associated Artery/Lesion type: [place] artery [place] vs. transplanted heart: [place] heart Time Spent (min) 60 Comment 40 minute spent by Damir Nixon, [address] Stanley (1) Sepsis Sepsis acute organ dysfunction status: with acute organ dysfunction Sepsis type: sepsis due to unspecified organism Severe sepsis acute organ dysfunction type: encephalopathy Severe sepsis shock status: without septic shock Qualified Code(s): A41.9 - Sepsis, unspecified organism; R65.20 - Severe sepsis without septic shock; G93.41 - Metabolic encephalopathy (5) CAD (coronary artery disease) Associated angina: without angina Coronary Disease-Associated Artery/Lesion type: [place] artery [place] vs. transplanted heart: [place] heart Qualified Code(s): I25.10 - Atherosclerotic heart disease of [place] coronary artery without angina pectoris
--- NOTE | 2024-10-14 10:52 | Pharmacy Report ---
Pharmacy Glycemic Short Note 2 - Date of Service October 14, 2024 - Glycemic Short BSG Results (Last 24 hours): 10/13/24 10/13/24 10/13/24 11:18 15:15 18:03 Glucose POC Glucose 163 H 250 H 319 H* 10/13/24 10/13/24 10/13/24 20:20 20:21 23:44 Glucose POC Glucose 326 H* 336 H* 292 H 10/14/24 10/14/24 05:36 06:29 Glucose 230 H POC Glucose 250 H OUTPATIENT ANTIDIABETIC REGIMEN: * NovoLog 5 units SQ QAM, 10 units @ noon, 10 units in afternoon, CF 20 >140mg/dL * Lantus 20 untis SQ BID * HbA1c is unreliable in ESRD patients d/t interactions between the A1c analyzing technique and high levels of urea in ESRD, reduced RBC life span, iron deficiency anemia, and EPO administration. HbA1c > 7.5% in ESRD patient may overestimate the extent of hyperglycemia in ESRD patients. ASSESSMENT: 10/14 * NPO for OR this AM * Fasting BSG elevated this AM. Increased lantus sliding scale. * Tightened CF and CR 2nd elevated post-prandial glucose. 10/13 * Diet resumed this AM after ANI * Fasting BSG elevated. Will increase Lantus * One post-prandial BSG elevated yesterday after tightening Novolog parameters. Will not make further adjustments for now, but may consider tightening Novolog parameters if post-prandial BSG's remain elevated. 10/12 * Fasting BSG 183 mg/dL this morning, received 40 units of lantus yesterday. Patient NPO this morning for amputation, plan for ANI tomorrow under anesthesia * Reduced basal AM dose to 15 units, scale for PM for a total ~40-25% reduction today. * Novolog parameters were tightened given increases in prandial BSGs yesterday- monitor 10/11 * Stressors stable. Confirmed MSSA bacteremia * BSG's trending down, although a little slowly. * Will maintain Lantus. Home dose at upper end of range but will titrate down if/when BSG's decrease into goal range to avoid further reduction in BSG * Will maintain Novolog as-is, unless see trend up in BSG's at lunch today. If trends up, will tighten CF and/or CR slightly 10/10 * Otto is a 64 year old male admitted with sepsis and a history of type 2 diabetes mellitus complicated by ESRD on PD. Pharmacy has been consulted to assist with glycemic management while inpatient. * BSG upon admission elevated, missed morning insulin per H&P, likely cause of hyperglycemia. Stat correctional and basal insulin ordered. * Will initiate basal scale up to a weight based stress of 2 and Lantus at about a weight based stress of 2. PLAN FOR INPATIENT GLYCEMIC CONTROL: * Hold outpatient oral diabetes medications * Basal insulin * Lantus 15-25 units SQ BID * Bolus insulin * NovoLog per scale ACHS or Q6hrs while NPO * Goal Range: Low 110 mg/dL - High 140 mg/dL * Correction Factor: 15 mg/dL/unit * Nutritional / Prandial insulin per carb ratio of 1 unit per 6 grams CHO consumed
[2024-10-14] MEDS: DICLOFENAC SOD 1% GEL 100 GM TUBE EXT SCH (11:03)
[2024-10-14] MEDS ORDERED: LIDOCAINE 2% 2 ML VIAL/AMP(20MG/ML) INFIL ONE ×2 (13:29→13:30)
[2024-10-14] MEDS ORDERED: ONDANSETRON INJ 2 MG/ML 2 ML VIAL ONE (13:29)
[2024-10-14] MEDS ORDERED: PROPOFOL IV EMULSION 10 MG/ML 20 ML VIAL IV ONE (13:29)
[2024-10-14] MEDS ORDERED: DEXAMETHASONE SOD INJ 4 MG/ML VIAL ONE (13:29)
--- NOTE | 2024-10-14 13:29 | Electrocardiogram Report ---
Test Reason : Blood Pressure : */* mmHG Vent. Rate : 92 BPM Atrial Rate : 92 BPM P-R Int : 150 ms QRS Dur : 160 ms QT Int : 436 ms P-R-T Axes : 30 -45 115 degrees QTcB Int : 539 ms Atrial-sensed ventricular-paced rhythm Left axis deviation Right bundle branch block Abnormal ECG When compared with ECG of 15-Jan-2015 12:19, Ventricular-paced rhythm is now Present Confirmed by Trav Blanton ([id number]) on 10/14/2024 1:29:23 PM Referred By: REFERRED SELF Confirmed By: Trav Blanton
[2024-10-14] MEDS ORDERED: MIDAZOLAM HCL 1 MG/ML 2ML VIAL ONE (13:30)
--- NOTE | 2024-10-14 14:06 | History & Physical Bridge Note ---
Date of Service October 14, 2024 History & Physical Bridge Note I have examined the patient, reviewed the History & Physical and in the interval since the performance of the History & Physical I have noted the following changes of clinical significance: no changes noted I saw the patient in the preoperative holding area, we discussed risks benefits reasonable outcomes and expectations. Will plan for: Right 4th and 5th digit amputations, at the tip.
--- NOTE | 2024-10-14 14:08 | Electrocardiogram Report ---
Test Reason : Blood Pressure : */* mmHG Vent. Rate : 84 BPM Atrial Rate : 84 BPM P-R Int : 158 ms QRS Dur : 160 ms QT Int : 448 ms P-R-T Axes : 31 -43 -4 degrees QTcB Int : 529 ms Atrial-sensed ventricular-paced rhythm with occasional Premature ventricular complexes Abnormal ECG When compared with ECG of 15-Jan-2015 12:19, No significant change Confirmed by Trav Blanton ([id number]) on 10/14/2024 2:08:32 PM Referred By: REFERRED SELF Confirmed By: Trav Blanton
[2024-10-14] MEDS ORDERED: ATROPINE SULFATE 0.1 MG/ML 10ML SYR IV PRN (14:09)
[2024-10-14] MEDS ORDERED: ONDANSETRON INJ 2 MG/ML 2 ML VIAL IV PRN (14:09)
[2024-10-14] MEDS ORDERED: HYDROmorphone INJ 1 MG/ML SYRINGE IV PRN (14:09)
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
[2024-10-14] MEDS: BUPIVACAINE 0.5 % 5 MG/1 ML MPF 30ML VIAL ONE (14:30)
[2024-10-14] MEDS: LIDOCAINE 1% LOCAL 20 ML VIAL ONE (14:30)
--- NOTE | 2024-10-14 15:06 | Operative Report ---
Post Operative Report Procedure Date: October 14, 2024 PRE-OP DIAGNOSIS: Right small finger gangrene, right ring finger gangrene POST-OP DIAGNOSIS: Right small finger gangrene, right ring finger gangrene, right ring finger infection PROCEDURE: Right small finger amputation at fingertip, right ring finger amputation at fingertip, right ring finger irrigation and debridement of infection, right ring finger FDP tenodesis SURGEON: Rocael Jean-Baptiste MD RIPRAP PLACER: Marielos Reyes PA-C ANESTHESIA: Digital block with sedation FINDINGS: Wet gangrene in the ring finger with evidence of infection around the nail. Bone was partially necrotic. Small finger showed small amount of bone necrosis as well as gangrene. Circulation was sluggish to both fingers. INDICATIONS: This is a gentleman with progressive gangrene of the fingertips. He is admitted for sepsis and amputation is recommended to rule out other sources of sepsis other than his foot. The risks and benefits have been discussed including, but not limited to, risk of infection, nerve injury, stiffness, loss of motion, failure to improve, etc. Reasonable outcomes and options of treatment were discussed. An explanation of appropriate alternatives to the procedure that may be advantageous were discussed and their risks and benefits, as well as the risks and benefits of not proceeding with treatment. I offered to answer any additional inquiries concerning the treatment involved. All the patients questions were answered. The patient is agreeable, understanding of the treatment plan and alternatives, and wishes to proceed with the treatment plan. DESCRIPTION OF OPERATION: The patient was identified. The proper procedure and site were verified. A surgical time out was taken and observed. The patient was given perioperative antibiotics prior to the skin incision. After administration of anesthesia, the patient's arm prepped and draped in the usual sterile fashion. Made an elliptical fishmouth incision over the ring finger at the DIP joint. There was gross evidence of infection. I performed debridement of skin subcutaneous tissue fascia and bone. There was evidence of infection into the bone. I irrigated the area copiously with 1 L of normal saline, and completed debridement. I performed revision amputation by removing the finger at the DIP joint level. I performed traction neurectomies. Finger tourniquet was removed. Circulation was sluggish but tissue was grossly viable. I performed a soft tissue closure by trimming dogears. Soft tissue was closed directly over the bone with 4-0 Vicryl Rapide. I ablated the nailbed. Attention was focused on the small finger. I performed amputation at the level of the base of the distal phalanx. I made an elliptical fishmouth incision and I dissected out the bone. I amputated the bone with a bone biter at the level of the distal phalanx. I performed traction neurectomies. I also ablated the nailbed. Incision was copiously irrigated. I do not see gross obvious evidence of infection as there was no gross purulence. Incision was copiously irrigated again and skin was closed with 4-0 Vicryl Rapide. Dogears were trimmed. Finger tourniquet was removed prior to closure and hemostasis was obtained with bipolar electrocautery. Patient was placed in soft dressings and was sent to the PACU in a stable condition. Due to the complex nature of the procedure, the entire surgery was performed with the operational assistance of Marielos Reyes PA-C.The planning assistant, under direct supervision, was involved in the actual performance of all aspects of the surgical procedure including hemostasis, tissue retraction and incision, instrument management, patient positioning, and wound closure. Attestation: I attest to the content of the Intraoperative Record and any orders documented therein. Any exceptions are noted below.
--- NOTE | 2024-10-14 16:19 | Anesthesiology Progress Note ---
Date of Service October 14, 2024 Anesthesia Post Procedure Vital Signs Vital Signs: Temp Pulse Pulse Pulse Resp BP BP 10/14/24 16:00 36.7 C 71 18 125/76 10/14/24 15:40 36.5 C 71 16 146/79 H 10/14/24 15:30 68 17 140/77 10/14/24 15:22 36.9 C 72 19 144/77 H 10/14/24 14:05 36.5 C 70 20 151/84 H 10/14/24 11:33 36.6 C 69 18 146/79 H 10/14/24 08:08 36.4 C L 72 18 10/14/24 07:41 36.4 C L 72 18 152/90 H 10/14/24 07:00 70 10/14/24 03:36 36.5 C 70 18 146/83 H 10/13/24 22:38 36.4 C L 78 18 132/93 10/13/24 19:00 36.8 C 77 22 116/112 H 10/13/24 18:26 36.7 C 77 20 160/54 H Pulse Ox O2 Del Method O2 Flow Rate 10/14/24 16:00 94 Room Air 10/14/24 15:40 97 Nasal Cannula 2 10/14/24 15:30 97 Nasal Cannula 2 10/14/24 15:22 97 Nasal Cannula 2 10/14/24 14:05 94 Room Air 10/14/24 11:33 94 Room Air 10/14/24 08:08 10/14/24 07:41 94 Room Air 10/14/24 07:00 10/14/24 03:36 92 Room Air 10/13/24 22:38 95 Room Air 10/13/24 19:00 Room Air 10/13/24 18:26 Pain Intensity Bilateral Lower Back: Pain Intensity: 10 Transfer of Care Handoff Completed per policy Notes Mental Status: alert / awake / arousable and participated in evaluation Patient Amnestic to Procedure: Yes Nausea / Vomiting: adequately controlled Pain: adequately controlled Airway Patency, RR, SpO2: stable & adequate BP & HR: stable & adequate Hydration State: stable & adequate Anesthetic Complications: no major complications apparent and Pt Satisfied with anesthetic care
[2024-10-14 18:22] LABS: Hep B Surface Ag with confirm Negative (Negative)
[2024-10-14] MEDS: SODIUM CHLORIDE 0.9% 1,000 ML IV SCH (20:01)
[2024-10-15 06:17] LABS: Hematocrit (blood only) 30.2 % (42.0-52.0); Hemoglobin 10.1 g/dl (14.0-18.0); Mean Corpuscular Hemoglobin 31.1 pg (25.0-34.0); Mean Corpuscular Volume 92.9 fL (80.0-100.0); Platelet Count 166 K/uL (130-400); RDW Standard Deviation 46.0 fL (36.4-46.3); Red Blood Count 3.25 M/uL (4.70-6.10); White Blood Count 12.08 K/ul (4.8-10.8)
[2024-10-15 06:47] LABS: Anion Gap 13.0 (3-11); Blood Urea Nitrogen 74.0 mg/dl (6-23); Calcium 7.9 mg/dl (8.6-10.3); Carbon Dioxide 27.0 mmol/L (21-32); Chloride 97.0 mmol/L (98-107); Creatinine Clr Calc Pharmacy 12.0 ml/min; Glucose 164.0 mg/dl (70-99(Fasting)); Potassium 3.5 mmol/L (3.5-5.1); Sodium 137.0 mmol/L (136-145)
[2024-10-15] MEDS: ASPIRIN 81 MG ECTAB PO SCH (09:17)
--- NOTE | 2024-10-15 12:04 | Dialysis Progress Note ---
Date of Service October 15, 2024 Assessment & Plan Admission and Anticipated Discharge Date Admission Date: October 10, 2024 Subjective Assessment & Plan (1) ESRD on peritoneal dialysis: patient does not have much residual renal function left as he makes only about half a cup of urine per day. he has been doing peritoneal dialysis through a nocturnal cycler at home for the last few months. Previously was on hemodialysis. ESRD secondary to diabetes hypertension and chronic diffuse vascular disease. he still has evidence of fluid overload on lower extremity exam as well as lung exam and chest x-ray. labs appear acceptable. For tonight we will again do all 2.5% and do 2500 mL fill volume over 10-12 hours. during the entire hospitalization we have done pretty much the same patient /family said they will not be able to take care of the patient at home. He will need rehab. But because none of the local rehabilitation places does peritoneal dialysis in-house we have to have alternate plan. will plan to place a dialysis catheter on Thursday or Thursday and transition him to hemodialysis while he is in the rehab hospital /SNF (2) Sepsis: PD fluid negative for peritonitis. No need of IP abx . ID eval done. MSSA bacteremia. ANI--negative. getting Some Amputations subjective------ patient seen for peritoneal dialysis. some alarm noted but was resolved without major issues. total ultrafiltration 2394 mL patient had surgery yesterday----Right small finger amputation at fingertip, right ring finger amputation at fingertip, right ring finger irrigation and debridement of infection, right ring finger FDP tenodesis review of systems as detailed in HPI unless stated otherwise 12 systems reviewed and negative Physical Exam Physical Exam: General: awake, alert, no apparent distress, less confused, Chest: Clear to auscultation, on room air. Cardiac: Regular rate and rhythm, + loud holosystolic murmur, no JVD, normal peripheral pulses, good capillary refill Abdominal: soft not distended and not tender at all. PD exit site normal- appearing Extremities: +1 peripheral edema, chronic skin changes s/p great toe amputations bilaterally - he does have injuries to the left 2nd and 3rd toe which are bloody. + dry gangrene involving the Right 4th and 5th fingers Psych: Flat mood and affect Results & Data Vital Signs (Past 12 Hours) Vital Signs Temp Pulse Pulse Resp BP Pulse Ox O2 Del Method 10/15/24 11:31 36.3 C L 67 18 120/68 93 Room Air 10/15/24 08:59 61 10/15/24 08:05 36.3 C L 63 18 10/15/24 07:37 Room Air 10/15/24 07:04 36.3 C L 63 18 130/79 90 Room Air 10/15/24 04:40 36.5 C 67 18 144/84 H 95 Nasal Cannula 10/15/24 01:11 Nasal Cannula O2 Flow Rate 10/15/24 11:31 10/15/24 08:59 10/15/24 08:05 10/15/24 07:37 10/15/24 07:04 10/15/24 04:40 2 10/15/24 01:11 2
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
[2024-10-15] MEDS: HYDROmorphone INJ 0.5 MG/0.5 ML SYR IV PRN (14:16)
[2024-10-15] MEDS: CHOLECALCIFEROL 125 MCG (5,000 UNITS) TAB PO SCH (14:30)
--- NOTE | 2024-10-15 22:51 | Podiatry Progress Note ---
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 - Foot cleaned, redressed with xeroform, 4x4 gauze, kerlix, Miguel wrap. - Sutures will be removed at two weeks. Should keep dressing clean, dry, and intact until then. - Agree with plan for longer term IV abx based on multiple comorbid infections, though foot OM should be definitively excised. Pathology pending - Will continue to follow. No further surgical intervention pending for foot/ankle. Admission and Anticipated Discharge Date Admission Date: October 10, 2024 Subjective Patient seen and examined at bedside this morning. No new concerns. Tolerating toe amputation well, now s/p finger amputation. No new concerns. Improving. Review of Systems Constitutional: + fever, + chills, + sweats, + fatigue a nd + weakness Eyes: no problem reported Ear, Nose, Mouth, Throat: no problem reported Respiratory: no problem reported Cardiovascular: + edema; no problem reported Gastrointestinal: + nausea; no vomiting and no problem rep orted Musculoskeletal: + muscle weakness; no problem reported Integumentary: + skin ulcer, + wounds and + erythema Neurologic: + loss of sensation, + numbness and + pa resthesia; no generalized weakness Psychiatric: + confusion Physical Exam Physical Exam: Lower extremity focused exam: DP/PT pulses nonpalpable. CFT brisk to the digits. Advanced trophic changes noted to b/l lower extremity. Sutures intact to left foot surgical site. No worsening evidence of necrosis or infection. Constitutional: WD/WN, vitals as above + ill appearing, + morbidly obese and + obese; no acute distress Eyes: PERRL, conjunctivae normal, anicteric sclerae ENMT: external ear and nose normal, oropharynx normal Mouth: + poor dentition Neck: trachea midline, no thyromegaly normal visual inspection Respiratory: normal respiratory effort; no respiratory distress Cardiovascular: Rate/Rhythm: regular rate and regular rhythm Vessels: + posterior tibial pulses abnormal and + dorsalis pedis pulses abnormal Chest (Breasts): Chest: normal inspection of chest Gastrointestinal (Abdomen): Inspection/Auscultation: abdomen normal to inspection Percussion/Palpation: + abdomen tender and abdomen soft Musculoskeletal: no cyanosis or clubbing, extremities motor strength 5/5 Head/Neck/Chest: normocephalic and head atraumatic Extremities: extremities normal to inspection Skin: + ulcer, + wound, + erythema and + nails dystrophic Neurologic: moves all extremities, awake and + confused; + abnormal sensation to monofilament and no focal motor deficits Psychiatric: A+Ox3, euthymic affect Results & Data Results & Data Vital Signs (Past 12 Hours) Vital Signs Temp Pulse Pulse Resp BP BP Pulse Ox 10/15/24 20:37 36.6 C 67 17 137/82 93 10/15/24 18:38 36.4 C L 77 17 147/57 H 10/15/24 15:45 66 10/15/24 15:15 36.4 C L 66 18 136/89 95 10/15/24 11:31 36.3 C L 67 18 120/68 93 O2 Del Method 10/15/24 20:37 Room Air 10/15/24 18:38 10/15/24 15:45 10/15/24 15:15 Room Air 10/15/24 11:31 Room Air (1) 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 Diabetic foot ulcer location: toe Diabetes mellitus type: type 2 Laterality: left Qualified Code(s): E11.621 - Type 2 diabetes mellitus with foot ulcer; L97.524 - Non-pressure chronic ulcer of other part of left foot with necrosis of bone (3) Sepsis Sepsis acute organ dysfunction status: with acute organ dysfunction Sepsis type: sepsis due to unspecified organism Severe sepsis acute organ dysfunction type: encephalopathy Severe sepsis shock status: without septic shock Qualified Code(s): A41.9 - Sepsis, unspecified organism; R65.20 - Severe sepsis without septic shock; G93.41 - Metabolic encephalopathy
[2024-10-16 06:09] LABS: Hematocrit (blood only) 31.0 % (42.0-52.0); Hemoglobin 10.4 g/dl (14.0-18.0); Mean Corpuscular Hemoglobin 31.0 pg (25.0-34.0); Mean Corpuscular Volume 92.3 fL (80.0-100.0); Platelet Count 191 K/uL (130-400); RDW Standard Deviation 45.7 fL (36.4-46.3); Red Blood Count 3.36 M/uL (4.70-6.10); White Blood Count 10.80 K/ul (4.8-10.8)
[2024-10-16 07:00] LABS: Anion Gap 13.0 (3-11); Blood Urea Nitrogen 71.0 mg/dl (6-23); Calcium 8.2 mg/dl (8.6-10.3); Carbon Dioxide 28.0 mmol/L (21-32); Chloride 95.0 mmol/L (98-107); Creatinine Clr Calc Pharmacy 12.6 ml/min; Glucose 150.0 mg/dl (70-99(Fasting)); Potassium 3.3 mmol/L (3.5-5.1); Sodium 136.0 mmol/L (136-145)
[2024-10-16] MEDS: POTASSIUM CHLORIDE CRTAB 20 MEQ TABCR PO STA (08:13)
[2024-10-16] MEDS: ONDANSETRON INJ 2 MG/ML 2 ML VIAL IV PRN (12:21)
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
--- NOTE | 2024-10-16 17:09 | Dialysis Progress Note ---
Date of Service October 16, 2024 Assessment & Plan Admission and Anticipated Discharge Date Admission Date: October 10, 2024 Subjective Assessment & Plan (1) ESRD on peritoneal dialysis: patient does not have much residual renal function left as he makes only about half a cup of urine per day. he has been doing peritoneal dialysis through a nocturnal cycler at home for the last few months. Previously was on hemodialysis. ESRD secondary to diabetes hypertension and chronic diffuse vascular disease. he still has evidence of fluid overload on lower extremity exam as well as lung exam and chest x-ray. labs appear acceptable. For tonight we will again do all 2.5% and do 2500 mL fill volume over 10-12 hours. during the entire hospitalization we have done pretty much the same patient /family said they will not be able to take care of the patient at home. He will need rehab. But because none of the local rehabilitation places does peritoneal dialysis in-house we have to have alternate plan. will plan to place a dialysis catheter on Thursday or Thursday and transition him to hemodialysis while he is in the rehab hospital /SNF. Also needs IV abx for 6 weeks. (2) Sepsis: PD fluid negative for peritonitis. No need of IP abx . ID eval done. MSSA bacteremia. ANI--negative. getting Some Amputations. Blood C/s from 10/14 so far negative. for Cefazolin for 6 weeks. subjective------ patient seen for peritoneal dialysis. some alarm noted but was resolved without major issues. total ultrafiltration 2146 mL patient had surgery--Right small finger amputation at fingertip, right ring finger amputation at fingertip, right ring finger irrigation and debridement of infection, right ring finger FDP tenodesis review of systems as detailed in HPI unless stated otherwise 12 systems reviewed and negative Physical Exam Physical Exam: General: awake, alert, no apparent distress, less confused, Chest: Clear to auscultation, on room air. Cardiac: Regular rate and rhythm, + loud holosystolic murmur, no JVD, normal peripheral pulses, good capillary refill Abdominal: soft not distended and not tender at all. PD exit site normal- appearing Extremities: +1 peripheral edema, chronic skin changes s/p great toe amputations bilaterally - he does have injuries to the left 2nd and 3rd toe which are bloody. + dry gangrene involving the Right 4th and 5th fingers Psych: Flat mood and affect Results & Data Vital Signs (Past 12 Hours) Vital Signs Temp Pulse Pulse Pulse Resp BP BP 10/16/24 14:40 36.4 C L 65 18 141/62 H 10/16/24 08:10 36.3 C L 75 18 10/16/24 08:00 65 10/16/24 07:17 36.3 C L 68 18 148/79 H Pulse Ox O2 Del Method 10/16/24 14:40 96 Room Air 10/16/24 08:10 10/16/24 08:00 10/16/24 07:17 94 Room Air
[2024-10-17 06:32] LABS: Hematocrit (blood only) 28.4 % (42.0-52.0); Hemoglobin 9.8 g/dl (14.0-18.0); Mean Corpuscular Hemoglobin 31.9 pg (25.0-34.0); Mean Corpuscular Volume 92.5 fL (80.0-100.0); Platelet Count 236 K/uL (130-400); RDW Standard Deviation 44.9 fL (36.4-46.3); Red Blood Count 3.07 M/uL (4.70-6.10); White Blood Count 10.33 K/ul (4.8-10.8)
[2024-10-17 07:07] LABS: Anion Gap 12.0 (3-11); Blood Urea Nitrogen 68.0 mg/dl (6-23); Calcium 8.0 mg/dl (8.6-10.3); Carbon Dioxide 28.0 mmol/L (21-32); Chloride 94.0 mmol/L (98-107); Creatinine Clr Calc Pharmacy 12.1 ml/min; Glucose 147.0 mg/dl (70-99(Fasting)); Potassium 3.4 mmol/L (3.5-5.1); Sodium 134.0 mmol/L (136-145)
[2024-10-17] MEDS: POTASSIUM CHLORIDE CRTAB 20 MEQ TABCR PO STA (08:10)
--- NOTE | 2024-10-17 09:09 | Nephrology Progress Note ---
Date of Service October 17, 2024 Assessment & Plan (1) ESRD on peritoneal dialysis: Plan: patient does not have much residual renal function left as he makes only about half a cup of urine per day. he has been doing peritoneal dialysis through a nocturnal cycler at home for the last few months. Previously was on hemodialysis. ESRD secondary to diabetes hypertension and chronic diffuse vascular disease. fluid status acceptable labs appear acceptable. For tonight we will again do all 2.5% and do 2500 mL fill volume over 10-12 hours. during the entire hospitalization we have done pretty much the same patient /family said they will not be able to take care of the patient at home, considering modality switch and in any event, he will need rehab. But because none of the local rehabilitation places does peritoneal dialysis in- house we have to have alternate plan/switch to HD will plan to place a dialysis catheter when feasible (on plavix, active infection though should be now w/ source control) transition him to hemodialysis while he is in the rehab hospital /SNF. Also needs IV abx for 6 weeks. Care coordinated w/ Dr Emery re timing of HD catheter, infection status, Plavix RX; we are in agreement. (2) Sepsis: Plan: PD fluid negative for peritonitis. No need of IP abx . ID eval done. MSSA bacteremia. ANI--negative. getting Some Amputations. Blood C/s from 10/14 so far negative. 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 for Cefazolin for 6 weeks. >>NEEDS bm daily to prevent translocational peritonitis Admission and Anticipated Discharge Date Admission Date: October 10, 2024 Subjective seen on mid AM rounds; no sob, no n/v, good appetite, no further f/c. c/o constipation x 5 days and w/ 1 BM back then and 5-6 other days w/o BM preceding. questions from , pt about + cultures and meaning; interested in modality discussion Review of Systems 2 Review of Systems: All systems reviewed & are unremarkable except as noted in Subjective Physical Exam 2 Constitutional: well developed and well nourished Eyes: EOM intact bilaterally ENMT: Mouth: + dry oral mucous membranes Respiratory: normal respiratory effort Auscultation: + diminished lung sounds Cardiovascular: Rate/Rhythm: regular rate and regular rhythm Extremities: n o edema Gastrointestinal (Abdomen): Inspection/Auscultation: normal bowel sounds P ercussion/Palpation: abdomen soft; abdomen nontender Musculoskeletal: Extremities: strength 5/5 throughout Skin: no rashes, warm and dry fingers, toes bandaged Neurologic: nagel, fluent speech, no tremor Results & Data Vital Signs (Past 12 Hours) Vital Signs Temp Pulse Resp BP Pulse Ox O2 Del Method 10/17/24 07:55 36.5 C 62 18 10/17/24 07:11 36.3 C L 59 L 18 109/70 92 Room Air 10/17/24 04:37 36.5 C 68 18 120/65 93 Room Air 10/16/24 23:56 36.4 C L 63 16 125/84 95 Room Air Laboratory Results 10/17/24 06:16 10/17/24 06:16 (2) Sepsis Sepsis acute organ dysfunction status: with acute organ dysfunction Sepsis type: sepsis due to unspecified organism Severe sepsis acute organ dysfunction type: encephalopathy Severe sepsis shock status: without septic shock Qualified Code(s): A41.9 - Sepsis, unspecified organism; R65.20 - Severe sepsis without septic shock; G93.41 - Metabolic encephalopathy
--- NOTE | 2024-10-17 12:22 | Podiatry Progress Note ---
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 - Foot cleaned, redressed with xeroform, 4x4 gauze, kerlix, Miguel wrap. - Sutures will be removed at two weeks. Should keep dressing clean, dry, and intact until then. - Agree with plan for longer term IV abx based on multiple comorbid infections, though foot OM should be definitively excised. Pathology pending - Will continue to follow. No further surgical intervention pending for foot/ankle. Admission and Anticipated Discharge Date Admission Date: October 10, 2024 Subjective Patient seen at bedside. No new pedal concerns. Non-ambulatory, not concerned about function of foot after discharge. Believes he will be going to rehab when discharged. Review of Systems Constitutional: + fever, + chills, + sweats, + fatigue a nd + weakness Eyes: no problem reported Ear, Nose, Mouth, Throat: no problem reported Respiratory: no problem reported Cardiovascular: + edema; no problem reported Gastrointestinal: + nausea; no vomiting and no problem rep orted Musculoskeletal: + muscle weakness; no problem reported Integumentary: + skin ulcer, + wounds and + erythema Neurologic: + loss of sensation, + numbness and + pa resthesia; no generalized weakness Psychiatric: + confusion Physical Exam Physical Exam: Lower extremity focused exam: DP/PT pulses nonpalpable. CFT brisk to the digits. Advanced trophic changes noted to b/l lower extremity. Sutures intact to left foot surgical site. No worsening evidence of necrosis or infection. Constitutional: WD/WN, vitals as above + ill appearing, + morbidly obese and + obese; no acute distress Eyes: PERRL, conjunctivae normal, anicteric sclerae ENMT: external ear and nose normal, oropharynx normal Mouth: + poor dentition Neck: trachea midline, no thyromegaly normal visual inspection Respiratory: normal respiratory effort; no respiratory distress Cardiovascular: Rate/Rhythm: regular rate and regular rhythm Vessels: + posterior tibial pulses abnormal and + dorsalis pedis pulses abnormal Chest (Breasts): Chest: normal inspection of chest Gastrointestinal (Abdomen): Inspection/Auscultation: abdomen normal to inspection Percussion/Palpation: + abdomen tender and abdomen soft Musculoskeletal: no cyanosis or clubbing, extremities motor strength 5/5 Head/Neck/Chest: normocephalic and head atraumatic Extremities: extremities normal to inspection Skin: + ulcer, + wound, + erythema and + nails dystrophic Neurologic: moves all extremities, awake and + confused; + abnormal sensation to monofilament and no focal motor deficits Psychiatric: A+Ox3, euthymic affect Results & Data Results & Data Vital Signs (Past 12 Hours) Vital Signs Temp Pulse Resp BP Pulse Ox O2 Del Method 10/17/24 07:55 36.5 C 62 18 10/17/24 07:11 36.3 C L 59 L 18 109/70 92 Room Air 10/17/24 04:37 36.5 C 68 18 120/65 93 Room Air (1) 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 Diabetic foot ulcer location: toe Diabetes mellitus type: type 2 Laterality: left Qualified Code(s): E11.621 - Type 2 diabetes mellitus with foot ulcer; L97.524 - Non-pressure chronic ulcer of other part of left foot with necrosis of bone (3) Sepsis Sepsis acute organ dysfunction status: with acute organ dysfunction Sepsis type: sepsis due to unspecified organism Severe sepsis acute organ dysfunction type: encephalopathy Severe sepsis shock status: without septic shock Qualified Code(s): A41.9 - Sepsis, unspecified organism; R65.20 - Severe sepsis without septic shock; G93.41 - Metabolic encephalopathy
--- NOTE | 2024-10-17 13:36 | Pain Management Consultation ---
Date of Consultation October 17, 2024 Assessment & Plan (1) Chronic lumbosacral pain: Plan 1. Patient is not eligible for any interventional injection secondary to sepsis as well as open wounds of the hand and foot. Patient cannot have any open sores at the time of procedure and cannot have been on antibiotics for 2 weeks prior. Patient would also need to be cleared to hold clopidogrel prior to procedure 2. Would continue gabapentin as prescribed as an outpatient at 600 mg p.o. 3 times daily 3. Can continue with acetaminophen for pain 4. Agree with acute pain management medications as prescribed by hospitalist. Can titrate as tolerated 5. Patient reports that he has seen [facility] pain management in the past. Would refer back to [facility] pain management clinic on discharge for further management 6. Agree with hospitalist that the pain is most likely secondary to deconditioning and other modifiable factors. Consider aggressive rehab on discharge 7. Continue with bowel regimen with goal of 1 bowel movement daily to avoid obstipation. Case discussed with Dr. Avery. Pain management will sign off at this time. Please feel free to call with further questions or for reconsult. History of Present Illness Reason for Consultation: Back pain Attending Physician: Alexia Emery MD History of Present Illness Attending: Dr. Avery Mr. Bentley is a 64-year-old male who reports that he follows with the [facility] pain clinic. He reports previous injections from [facility] at [facility]. Patient also reports that he has been to [place] as well as to [place] to follow with pain management. Patient was admitted 1 week ago with sepsis with MSSA bacteremia with possible source of osteomyelitis of the left 2nd and 3rd toe infection. He underwent amputation of the left second toe 10/13/2024. He was also found to have progressive gangrene of his right 4th and 5th fingertip. Patient underwent amputation of the fingertips on 10/14/2024. Patient reports that when he was admitted he had increased back pain secondary to repositioning and transport on backwards. On examination, patient has Optifoam on this right paraspinal region of his lumbar spine. He states that this is where his pain generally is and that it is topical and not pain. Patient reports his back pain is worsened by limited ambulation. He states that he walks at home with a walker but primarily is in the wheelchair. He also states he has had limited ambulation while here in the hospital secondary to procedures on his feet as well as his hands. Patient reports back pain is 3- 4/10. Pain is aggravated by walking, prolonged sitting, repositioning. Patient states he gets some alleviation with gabapentin and Tylenol. Patient is currently receiving oxycodone and Dilaudid for pain while in the hospital. Lumbar spine MRI 10/11/2024 Patient denies any bowel or bladder incontinence. No saddle anesthesia. No unusual bleeding or bruising. Patient reports most of his pain being from his feet and his hands. No other constitutional complaints at this time. Allergies Allergy/AdvReac Type Severity Reaction Status Date / Time daptomycin Allergy Rash Verified 10/10/24 09:48 Home Medications Medication Instructions Recorded Confirmed Type atenolol 50 mg tablet 50 mg PO QAM 03/07/20 10/10/24 History atorvastatin 40 mg tablet 80 mg PO QPM 03/07/20 10/10/24 History clopidogrel 75 mg tablet 75 mg PO HS 03/07/20 10/10/24 History insulin aspart U-100 100 unit/mL 1 sliding scale dose subcut UD 03/07/20 10/10/24 History (3 mL) subcutaneous pen (Novolog FlexPen U-100 Insulin aspart) insulin glargine 100 unit/mL (3 20 unit subcut BID 03/07/20 10/10/24 History mL) subcutaneous pen (Basaglar KwikPen U-100 Insulin) aspirin 81 mg tablet,delayed 81 mg PO DAILY 11/01/21 10/10/24 History release cholecalciferol (vitamin D3) 25 25 mcg PO .3X WEEK 11/01/21 10/10/24 History mcg (1,000 unit) tablet (Vitamin D3) acetaminophen 500 mg tablet 500 - 1,000 mg PO UD PRN Pain 10/10/24 10/10/24 History amlodipine 5 mg tablet 2.5 mg PO QAM 10/10/24 10/10/24 History gabapentin 600 mg tablet 600 mg PO TID 10/10/24 10/10/24 History torsemide 100 mg tablet 100 mg PO DAILY 10/10/24 10/10/24 History Pain History Previous Imaging and Results Imaging: Magnetic Resonance Report Patient: JULIANE BENTLEY Admit Date: 10/10/24 MR#: [id number] Address1: [address] [place] [address] Acct ID:[id number] Address2: [address] Date: 1960 [facility] Zip: [place] [address] Age: 64 Location: 2E Sex: M Room/Bed: 12 Att Phy: To Nixon MD Diagnosis: SEPSIS Sybil Phy: Seth Jasso MD Service Date: 10/11/24 Fam Phy: Interpreting Phy: Lalo Calhoun MDAiram Phy: Triston Coker MD Ordering Phy: To Nixon MD cc: ~ MRI OF THE LUMBAR SPINE WITHOUT IV CONTRAST CLINICAL HISTORY: Back pain. Bacteremia. COMPARISON STUDY: Abdominal CT dated 10/10/2024. TECHNIQUE: MRI of the lumbar spine was performed utilizing various T1 and T2 sequences in axial and sagittal planes. IV contrast was not administered for this examination. FINDINGS: Lumbar spine: Vertebral body height and alignment are maintained throughout the lumbar spine. The transverse and spinous processes appear intact. There is no evidence of spondylolysis. Anterior and lateral marginal osteophytes are seen throughout. A 12 mm atypical hemangioma is noted in the body of L5. An additional hemangioma is noted in L1. No destructive bony lesion is seen. There is a Schmorl's node within the inferior endplate of L4. Mild chronic degenerative endplate change is seen at several levels. There is mild degenerative endplate edema at T12-L1 and L5-S1. Intervertebral discs: Disc desiccation is seen throughout the lumbar spine. There is moderate loss of height at L5-S1. Only mild loss of height is seen at the remaining levels. There is no fluid within the disc spaces. Paraspinal cord: The visualized spinal cord is normal in morphology and signal intensity. The conus medullaris terminates at the level of L2. The nerve roots of the cauda equina are normal in morphology. L1-L2: Unremarkable. L2-L3: The central canal is clear. Lateral disc bulges contribute to mild bilateral subarticular stenosis. Facet arthropathy is of no consequence. The neural foramina are patent. L3-L4: There is minimal posterior disc bulge which abuts the transiting nerve roots. No significant central canal stenosis is seen. Lateral disc bulges contribute to mild bilateral subarticular stenosis. In conjunction with facet arthropathy there is minimal bilateral neural foraminal narrowing. L4-L5: There is minimal posterior disc bulge with annular fissure. No significant central canal stenosis is seen. Lateral disc bulges cause bilateral subarticular stenosis, left side greater than right. In conjunction with facet arthropathy there is [id number] bilateral neural foraminal stenosis. L5-S1: There is a small central posterior disc protrusion with annular fissure. This abuts the transiting nerve roots. No significant central canal stenosis is seen. Bilateral disc bulges cause bilateral subarticular stenosis, right side greater than left. This may impinge on the exiting right L5 nerve root. In conjunction with facet arthropathy there is moderate right greater than left neural foraminal stenosis. Sacrum: The imaged sacrum is normal in morphology and signal intensity. Soft tissues: The paraspinous soft tissues are within normal limits. No paravertebral edema is seen. Bilateral renal cysts are partially imaged measuring 2.5 cm. No retroperitoneal lymphadenopathy is identified. The bladder significant distended, the wall appears thickened/trabeculated indicating chronic outlet obstruction. IMPRESSION: 1. Mild lumbosacral spondylosis as above with no significant acquired compromise of the central canal. See discussion for detailed level by level analysis. 2. Degenerative disc disease as above with associated endplate change. 3. No destructive bony process is seen. 4. Distended bladder with evidence of chronic outlet obstruction. Electronically signed by: Lalo Calhoun M.D. 10/11/2024 2:01 PM Patient History Medical History Amputation of left great toe Osteomyelitis Hallux abducto valgus, bilateral Amputated great toe of right foot Diabetes mellitus with neuropathy Diabetic peripheral neuropathy Callus Surgical History History of revascularization procedure of lower extremity Social History Smoking Status: Former smoker Tobacco Type: Smokeless Tobacco (Dip or Chew) Do You Dip or Chew Tobacco: Yes; Tobacco Cessation Education Requested by Patient: No Hx Alcohol Use: Yes Alcohol type: beer Hx Substance Use: No Preferred Language: Armenian Communication Ability: Effective Visual Impairment: Limited Hearing Ability: Normal Forensic Economist Required: No Beliefs That Will Affect Care: None marital status: Current Living Situation: Spouse current occupational status: employed 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 Memory appears grossly intact, resting comfortably on examination Skin: No evidence of edema, erythema or skin breakdown. No rashes, lesions, ulcers, or induration noted. Optifoam on lumbar back in right paraspinal region. Musculoskeletal: Head is normocephalic and atraumatic, gait not able to be observed. Patient with foot bandaged from amputation of toes. Hand bandaged with amputation of finger tips Lumbar: Lordotic curve: Loss of lumbar Lordosis Range of motion is patient denies any range of motion pain at this time Tenderness: Nontender over the axial midline Facet provocation: Negative bilaterally Straight leg raise: Negative bilaterally Strength: Strength is equal bilaterally with 5 out of 5 strength in all planes Sensation of lower extremities: Intact bilaterally Deep tendon reflexes: Rated at 2/4 in bilateral patellar and Achilles tendons Myofascial spasm: No appreciable lumbar spasm. No discrete trigger points noted Greater trochanters: Nontender bilaterally Sacroiliac joints: Nontender bilaterally. Pathologic reflexes noted: None Neuro: No focal neurological deficits appreciated. Results (Pain Clinic) Diagnostic Review MRI: reports reviewed, images reviewed and findings discussed with patient MRI Findings: Magnetic Resonance Report Patient: JULIANE BENTLEY Admit Date: 10/10/24 MR#: [id number] Address1: [address] [place] [address] Acct ID:[id number] Address2: [address] Date: 1960 [facility] Zip: [place] [address] Age: 64 Location: 2E Sex: M Room/Bed: [facility] Att Phy: To Nixon MD Diagnosis: SEPSIS Sybil Phy: Seth Jasso MD Service Date: 10/11/24 Fam Phy: Interpreting Phy: Lalo aClhoun MD Admit Phy: Triston Coker MD Ordering Phy: To Nixon MD cc: ~ MRI OF THE LUMBAR SPINE WITHOUT IV CONTRAST CLINICAL HISTORY: Back pain. Bacteremia. COMPARISON STUDY: Abdominal CT dated 10/10/2024. TECHNIQUE: MRI of the lumbar spine was performed utilizing various T1 and T2 sequences in axial and sagittal planes. IV contrast was not administered for this examination. FINDINGS: Lumbar spine: Vertebral body height and alignment are maintained throughout the lumbar spine. The transverse and spinous processes appear intact. There is no evidence of spondylolysis. Anterior and lateral marginal osteophytes are seen throughout. A 12 mm atypical hemangioma is noted in the body of L5. An additional hemangioma is noted in L1. No destructive bony lesion is seen. There is a Schmorl's node within the inferior endplate of L4. Mild chronic degenerative endplate change is seen at several levels. There is mild degenerative endplate edema at T12-L1 and L5-S1. Intervertebral discs: Disc desiccation is seen throughout the lumbar spine. There is moderate loss of height at L5-S1. Only mild loss of height is seen at the remaining levels. There is no fluid within the disc spaces. Paraspinal cord: The visualized spinal cord is normal in morphology and signal intensity. The conus medullaris terminates at the level of L2. The nerve roots of the cauda equina are normal in morphology. L1-L2: Unremarkable. L2-L3: The central canal is clear. Lateral disc bulges contribute to mild bilateral subarticular stenosis. Facet arthropathy is of no consequence. The neural foramina are patent. L3-L4: There is minimal posterior disc bulge which abuts the transiting nerve roots. No significant central canal stenosis is seen. Lateral disc bulges contribute to mild bilateral subarticular stenosis. In conjunction with facet arthropathy there is minimal bilateral neural foraminal narrowing. L4-L5: There is minimal posterior disc bulge with annular fissure. No significant central canal stenosis is seen. Lateral disc bulges cause bilateral subarticular stenosis, left side greater than right. In conjunction with facet arthropathy there is [id number] bilateral neural foraminal stenosis. L5-S1: There is a small central posterior disc protrusion with annular fissure. This abuts the transiting nerve roots. No significant central canal stenosis is seen. Bilateral disc bulges cause bilateral subarticular stenosis, right side greater than left. This may impinge on the exiting right L5 nerve root. In conjunction with facet arthropathy there is moderate right greater than left n eural foraminal stenosis. Sacrum: The imaged sacrum is normal in morphology and signal intensity. Soft tissues: The paraspinous soft tissues are within normal limits. No paravertebral edema is seen. Bilateral renal cysts are partially imaged measuring 2.5 cm. No retroperitoneal lymphadenopathy is identified. The bladder significant distended, the wall appears thickened/trabeculated indicating ch ronic outlet obstruction. IMPRESSION: 1. Mild lumbosacral spondylosis as above with no significant acquired compromise of the central canal. See discussion for detailed level by level analysis. 2. Degenerative disc disease as above with associated endplate change. 3. No destructive bony process is seen. 4. Distended bladder with evidence of chronic outlet obstruction. Electronically signed by: Lalo Calhoun M.D. 10/11/2024 2:01 PM Previous Records Review Previous Records: personally reviewed by me
[2024-10-17] MEDS ORDERED: MINERAL OIL ENEMA 133 ML BTL PR PRN (13:43)
[2024-10-17] MEDS: POLYETHYLENE (MIRALAX) 17 GM PACK PO SCH (13:59)
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
[2024-10-18 06:26] LABS: Hematocrit (blood only) 27.1 % (42.0-52.0); Hemoglobin 9.5 g/dl (14.0-18.0); Mean Corpuscular Hemoglobin 32.1 pg (25.0-34.0); Mean Corpuscular Volume 91.6 fL (80.0-100.0); Platelet Count 269 K/uL (130-400); RDW Standard Deviation 44.6 fL (36.4-46.3); Red Blood Count 2.96 M/uL (4.70-6.10); White Blood Count 10.38 K/ul (4.8-10.8)
[2024-10-18 07:02] LABS: Anion Gap 13.0 (3-11); Blood Urea Nitrogen 71.0 mg/dl (6-23); Calcium 7.9 mg/dl (8.6-10.3); Carbon Dioxide 26.0 mmol/L (21-32); Chloride 92.0 mmol/L (98-107); Creatinine Clr Calc Pharmacy 12.3 ml/min; Glucose 150.0 mg/dl (70-99(Fasting)); Iron 65.0 mcg/dl (35-175); Magnesium 2.1 mg/dl (1.7-2.4); Potassium 3.5 mmol/L (3.5-5.1); Sodium 131.0 mmol/L (136-145); Total Iron Binding Cap Calc 224.0 mcg/dl (250-450); Transferrin 160.0 mg/dl (200-360); Transferrin (FE) Percent Satur 29.0 % (20-50)
--- NOTE | 2024-10-18 09:33 | Consultation ---
Date of Consultation October 18, 2024 Assessment & Plan (1) End stage renal disease on dialysis: Pt with ESRD, currently on CAPD. Will require HD access in order to be d/c to rehab. Per nephrology request, will plan to remove CAPD catheter and place permcath in OR on THURSDAY. Procedures, risks, benefits, and alternatives discussed with pt by myself at Dr Aquino's request. Pt expresses understanding and agreement to proceed. History of Present Illness Reason for Consultation: ESRD Attending Physician: Alexia Emery MD History of Present Illness 64 yo m with multiple medical problems, including PAD, ESRD on PD, HTN, CAD, pacemaker, AV replacement, DMII, CVA, neuropathy, admitted with bacteremia/sepsis, seen in consultation today for removal of CAPD catheter and permcath insertion. 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 Rehab is not capable of doing PD and pt will need HD access. Per pt, has had AVF created in past which failed. Pt has undergone multiple BLE revascularizations at [facility]. Pt admits fatigue/malaise. Denies VALENCIA, fever, chest pain, SOB, abd pain, N/V, rest pain, claudication, other complaints. Allergies Allergy/AdvReac Type Severity Reaction Status Date / Time daptomycin Allergy Rash Verified 10/10/24 09:48 Home Medications Medication Instructions Recorded Confirmed Type atenolol 50 mg tablet 50 mg PO QAM 03/07/20 10/10/24 History atorvastatin 40 mg tablet 80 mg PO QPM 03/07/20 10/10/24 History clopidogrel 75 mg tablet 75 mg PO HS 03/07/20 10/10/24 History insulin aspart U-100 100 unit/mL 1 sliding scale dose subcut UD 03/07/20 10/10/24 History (3 mL) subcutaneous pen (Novolog FlexPen U-100 Insulin aspart) insulin glargine 100 unit/mL (3 20 unit subcut BID 03/07/20 10/10/24 History mL) subcutaneous pen (Basaglar KwikPen U-100 Insulin) aspirin 81 mg tablet,delayed 81 mg PO DAILY 11/01/21 10/10/24 History release cholecalciferol (vitamin D3) 25 25 mcg PO .3X WEEK 11/01/21 10/10/24 History mcg (1,000 unit) tablet (Vitamin D3) acetaminophen 500 mg tablet 500 - 1,000 mg PO UD PRN Pain 10/10/24 10/10/24 History amlodipine 5 mg tablet 2.5 mg PO QAM 10/10/24 10/10/24 History gabapentin 600 mg tablet 600 mg PO TID 10/10/24 10/10/24 History torsemide 100 mg tablet 100 mg PO DAILY 10/10/24 10/10/24 History Patient History Medical History Amputation of left great toe Osteomyelitis Hallux abducto valgus, bilateral Amputated great toe of right foot Diabetes mellitus with neuropathy Diabetic peripheral neuropathy Callus Surgical History History of revascularization procedure of lower extremity Social History Smoking Status: Former smoker Tobacco Type: Smokeless Tobacco (Dip or Chew) Do You Dip or Chew Tobacco: Yes; Tobacco Cessation Education Requested by Patient: No Hx Alcohol Use: Yes Alcohol type: beer Hx Substance Use: No Preferred Language: Dutch Communication Ability: Effective Visual Impairment: Limited Hearing Ability: Normal Antenna Machine Operator Required: No Beliefs That Will Affect Care: None marital status: Current Living Situation: Spouse current occupational status: employed 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 Feels Safe at Home: Yes Safety Concerns: Feels Safe At This Time Diet: diabetic caffeine: Yes Physical Activity Frequency: Daily Do you think of yourself as: straight/heterosexual Gender Identity: Male Assistive Devices: Walker and Wheelchair Review of Systems Review of Systems: All systems reviewed & are unremarkable except as noted in HPI & below Physical Exam Constitutional: WD/WN, vitals as above cooperative and comfortable; not in distress Neck: trachea midline Respiratory: normal respiratory effort, lungs clear to auscultation Auscultation: + diminished lung sounds Cardiovascular: Rate/Rhythm: regular rate and regular rhythm Vessels: femoral pulses present; + abnormal peripheral pulses Extremities: + edema Gastrointestinal (Abdomen): Inspection/Auscultation: + abdomen distended (CAPD catheter in place, no erythema or tenderness or draiange) and normal bowel sounds Percussion/Palpation: abdomen nontender Musculoskeletal: no cyanosis or clubbing, extremities motor strength 5/5 Skin: no rashes, warm and dry (R hand dressing, L foot dressing) Neurologic: moves all extremities and awake; no focal motor deficits and not confused Psychiatric: A+Ox3, euthymic affect Results & Data Vital Signs (Past 12 Hours) Vital Signs Temp Pulse Pulse Pulse Pulse Resp BP 10/18/24 08:03 36.4 C L 92 H 72 75 18 10/18/24 08:03 10/18/24 07:59 36.4 C L 92 H 18 141/78 H 10/18/24 07:53 10/18/24 07:53 76 10/18/24 03:28 36.5 C 74 18 142/68 H 10/17/24 22:45 36.5 C 69 16 141/78 H 10/17/24 21:43 73 Pulse Ox O2 Del Method 10/18/24 08:03 10/18/24 08:03 97 Room Air 10/18/24 07:59 Room Air 10/18/24 07:53 Room Air 10/18/24 07:53 10/18/24 03:28 93 Room Air 10/17/24 22:45 94 Room Air 10/17/24 21:43
--- NOTE | 2024-10-18 10:34 | Ultrasound Report ---
VENOUS DOPPLER ULTRASOUND OF RIGHT INTERNAL JUGULAR VEIN CLINICAL HISTORY: Evaluate right internal jugular patency. COMPARISON STUDY: No previous studies for comparison. TECHNIQUE: Color and duplex Doppler sonography of the right internal jugular vein was performed. FINDINGS: The right internal jugular vein is patent. No thrombus within the right internal jugular ve in is present. Visualized portions of the right subclavian vein were also patent. IMPRESSION: Patent right internal jugular vein. ACT 112: Negative or not required by law. Electronically signed by: Tyrone Pearson M.D. 10/18/2024 10:33 AM
--- NOTE | 2024-10-18 13:06 | Nephrology Progress Note ---
Date of Service October 18, 2024 Assessment & Plan (1) ESRD on peritoneal dialysis: Plan: patient does not have much residual renal function left as he makes only about 500ml of urine per day. he has been doing peritoneal dialysis through a nocturnal cycler at home for the last few months. Previously was on hemodialysis and desires to change back to HD for foreseeable future not only for rehab but b/c of carepartner fatigue/health issues . ESRD secondary to diabetes hypertension and chronic diffuse vascular disease. fluid status acceptable labs appear acceptable though reemerging hyponatremia For tonight we will again do all 2.5% and do 2500 mL fill volume over 10-12 hours. during the entire hospitalization we have done pretty much the same 10/[address] dialysis catheter (on plavix, active infection though should be now w/ source control) ->plan HD after TDC placement to ensure cath function; transfer to rehab likely on weekend ->needs IV abx for 6 weeks. Care coordinated w/ Dr Rupert barnett timing of HD catheter adn txs, infection status, Plavix RX; we are in agreement. (2) Sepsis: Plan: PD fluid negative for peritonitis. No need of IP abx . ID eval done. MSSA bacteremia. ANI--negative. getting Some Amputations. Blood C/s from 10/14 so far negative. 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 for Cefazolin for 6 weeks. >>NEEDS bm daily to prevent translocational peritonitis Admission and Anticipated Discharge Date Admission Date: October 10, 2024 Subjective scheduled for 10/21 PD cth removal/TDC insertion; 1197 UF. large BM yesterday; no abd pain, no n/v, no edema, no sob Review of Systems 2 Review of Systems: All systems reviewed & are unremarkable except as noted in Subjective Physical Exam 2 Constitutional: well developed and well nourished Eyes: EOM intact bilaterally ENMT: Mouth: + dry oral mucous membranes Respiratory: normal respiratory effort Auscultation: + diminished lung sounds Cardiovascular: Rate/Rhythm: regular rate and regular rhythm Extremities: n o edema Gastrointestinal (Abdomen): Inspection/Auscultation: normal bowel sounds and + abdominal surgical drain present (PD cath) Percussion/Palpation: abdomen soft; abdomen nontender Musculoskeletal: Extremities: strength 5/5 throughout Skin: no rashes, warm and dry Results & Data Vital Signs (Past 12 Hours) Vital Signs Temp Pulse Pulse Resp BP Pulse Ox O2 Del Method 10/18/24 10:37 36.6 C 82 18 118/78 98 Room Air 10/18/24 08:03 36.4 C L 92 H 18 10/18/24 08:03 97 Room Air 10/18/24 07:59 36.4 C L 92 H 18 141/78 H Room Air 10/18/24 07:53 Room Air 10/18/24 07:53 76 10/18/24 03:28 36.5 C 74 18 142/68 H 93 Room Air Laboratory Results 10/18/24 06:08 10/18/24 06:08 (2) Sepsis Sepsis acute organ dysfunction status: with acute organ dysfunction Sepsis type: sepsis due to unspecified organism Severe sepsis acute organ dysfunction type: encephalopathy Severe sepsis shock status: without septic shock Qualified Code(s): A41.9 - Sepsis, unspecified organism; R65.20 - Severe sepsis without septic shock; G93.41 - Metabolic encephalopathy
--- NOTE | 2024-10-18 13:26 | Pharmacy Report ---
Pharmacy Glycemic Short Note 2 - Date of Service October 18, 2024 - Glycemic Short BSG Results (Last 24 hours): 10/17/24 10/17/24 10/18/24 16:00 21:03 06:08 Glucose 150 H POC Glucose 84 235 H 10/18/24 10/18/24 07:23 11:27 Glucose POC Glucose 180 H 143 H OUTPATIENT ANTIDIABETIC REGIMEN: * NovoLog 5 units SQ QAM, 10 units @ noon, 10 units in afternoon, CF 20 >140mg/dL * Lantus 20 untis SQ BID * HbA1c is unreliable in ESRD patients d/t interactions between the A1c analyzing technique and high levels of urea in ESRD, reduced RBC life span, iron deficiency anemia, and EPO administration. HbA1c > 7.5% in ESRD patient may overestimate the extent of hyperglycemia in ESRD patients. ASSESSMENT: 10/18 * Patient has received 25 units BID per scale x last 3 days- fasting within range, will schedule * BSGs slightly lower than goal with lunch/dinner yesterday but not hypoglycemic. Patient has refused with insulin with dinner leading to high HS blood sugar. Will loosen carb ratio slightly to try and maintain BSG 110-140 mg/dL 10/14 * NPO for OR this AM * Fasting BSG elevated this AM. Increased lantus sliding scale. * Tightened CF and CR 2nd elevated post-prandial glucose. 10/13 * Diet resumed this AM after ANI * Fasting BSG elevated. Will increase Lantus * One post-prandial BSG elevated yesterday after tightening Novolog parameters. Will not make further adjustments for now, but may consider tightening Novolog parameters if post-prandial BSG's remain elevated. 10/12 * Fasting BSG 183 mg/dL this morning, received 40 units of lantus yesterday. Patient NPO this morning for amputation, plan for ANI tomorrow under anesthesia * Reduced basal AM dose to 15 units, scale for PM for a total ~40-25% reduction today. * Novolog parameters were tightened given increases in prandial BSGs yesterday- monitor 10/11 * Stressors stable. Confirmed MSSA bacteremia * BSG's trending down, although a little slowly. * Will maintain Lantus. Home dose at upper end of range but will titrate down if/when BSG's decrease into goal range to avoid further reduction in BSG * Will maintain Novolog as-is, unless see trend up in BSG's at lunch today. If trends up, will tighten CF and/or CR slightly 10/10 * Otto is a 64 year old male admitted with sepsis and a history of type 2 diabetes mellitus complicated by ESRD on PD. Pharmacy has been consulted to assist with glycemic management while inpatient. * BSG upon admission elevated, missed morning insulin per H&P, likely cause of hyperglycemia. Stat correctional and basal insulin ordered. * Will initiate basal scale up to a weight based stress of 2 and Lantus at about a weight based stress of 2. PLAN FOR INPATIENT GLYCEMIC CONTROL: * Hold outpatient oral diabetes medications * Basal insulin * Lantus 25 units SQ BID * Bolus insulin * NovoLog per scale ACHS or Q6hrs while NPO * Goal Range: Low 110 mg/dL - High 140 mg/dL * Correction Factor: 20 mg/dL/unit * Nutritional / Prandial insulin per carb ratio of 1 unit per 8 grams CHO consumed
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
[2024-10-18] MEDS: LANTUS PER UNIT CHARGE SC SCH (22:11)
[2024-10-19 06:27] LABS: Hematocrit (blood only) 27.6 % (42.0-52.0); Hemoglobin 9.3 g/dl (14.0-18.0); Mean Corpuscular Hemoglobin 31.3 pg (25.0-34.0); Mean Corpuscular Volume 92.9 fL (80.0-100.0); Platelet Count 289 K/uL (130-400); RDW Standard Deviation 46.1 fL (36.4-46.3); Red Blood Count 2.97 M/uL (4.70-6.10); White Blood Count 11.82 K/ul (4.8-10.8)
[2024-10-19 07:27] LABS: Anion Gap 13.0 (3-11); Blood Urea Nitrogen 76.0 mg/dl (6-23); Calcium 8.1 mg/dl (8.6-10.3); Carbon Dioxide 26.0 mmol/L (21-32); Chloride 94.0 mmol/L (98-107); Creatinine Clr Calc Pharmacy 11.9 ml/min; Glucose 107.0 mg/dl (70-99(Fasting)); Potassium 3.7 mmol/L (3.5-5.1); Sodium 133.0 mmol/L (136-145)
[2024-10-19] MEDS: LANTUS PER UNIT CHARGE SC SCH (08:13)
--- NOTE | 2024-10-19 09:00 | Nephrology Progress Note ---
Date of Service October 19, 2024 Assessment & Plan (1) ESRD on peritoneal dialysis: Plan: patient does not have much residual renal function left as he makes only about 500ml of urine per day, though made 700+mL past24 hrs he has been doing peritoneal dialysis through a nocturnal cycler at home for the last few months. Previously was on hemodialysis and desires to change back to HD for foreseeable future not only for rehab but b/c of carepartner fatigue/health issues ESRD secondary to diabetes hypertension and chronic diffuse vascular disease. fluid status acceptable labs appear acceptable though reemerging hyponatremia which is improved today some at 133 For tonight we will again do all 2.5% and do 2500 mL fill volume over 10-12 hours. during the entire hospitalization we have done pretty much the same 10/[address] dialysis catheter (on plavix, active infection though should be now w/ source control) ->plan HD after TDC placement to ensure cath function; transfer to rehab likely on weekend ->needs IV abx for 6 weeks. Care coordinated w/ Dr Ruben barnett timing of HD catheter and PD txs, constipation mgt, d/c dispo we are in agreement. (2) Sepsis: Plan: PD fluid negative for peritonitis. No need of IP abx . ID eval done. MSSA bacteremia. ANI--negative. getting Some Amputations. Blood C/s from 10/14 so far negative. 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 for Cefazolin for 6 weeks. >>NEEDS bm daily to prevent translocational peritonitis Admission and Anticipated Discharge Date Admission Date: October 10, 2024 Subjective 1.2 L UF; no acute interval events clinically. no sob, no n/v. last BM was 10/17; surg wounds healing well per pt Review of Systems 2 Review of Systems: All systems reviewed & are unremarkable except as noted in Subjective Physical Exam 2 Constitutional: well developed and well nourished Eyes: EOM intact bilaterally ENMT: Mouth: + dry oral mucous membranes Respiratory: normal respiratory effort Auscultation: + diminished lung sounds Cardiovascular: Rate/Rhythm: regular rate and regular rhythm Extremities: n o edema Gastrointestinal (Abdomen): Inspection/Auscultation: normal bowel sounds and + abdominal surgical drain present (PD cath) Percussion/Palpation: abdomen soft; abdomen nontender Musculoskeletal: Extremities: strength 5/5 throughout Skin: no rashes, warm and dry Results & Data Vital Signs (Past 12 Hours) Vital Signs Temp Pulse Pulse Pulse Resp BP Pulse Ox 10/19/24 07:34 36.3 C L 71 18 115/46 L 97 10/19/24 07:00 66 10/19/24 03:14 36.6 C 69 16 125/78 95 10/18/24 22:45 36.6 C 77 16 136/80 92 10/18/24 22:02 77 10/18/24 21:00 O2 Del Method 10/19/24 07:34 Room Air 10/19/24 07:00 10/19/24 03:14 Room Air 10/18/24 22:45 Room Air 10/18/24 22:02 10/18/24 21:00 Room Air Laboratory Results 10/19/24 06:07 10/19/24 06:07 (2) Sepsis Sepsis acute organ dysfunction status: with acute organ dysfunction Sepsis type: sepsis due to unspecified organism Severe sepsis acute organ dysfunction type: encephalopathy Severe sepsis shock status: without septic shock Qualified Code(s): A41.9 - Sepsis, unspecified organism; R65.20 - Severe sepsis without septic shock; G93.41 - Metabolic encephalopathy
--- NOTE | 2024-10-19 10:42 | Hospitalist Progress Note ---
Date of Service October 19, 2024 Assessment & Plan (1) Sepsis: (2) Diabetes mellitus: (3) Diabetic peripheral neuropathy associated with type 2 diabetes mellitus: (4) Peripheral vascular disease: (5) ESRD on peritoneal dialysis: (6) HTN (hypertension): (7) S/P cardiac pacemaker procedure: (8) History of diabetic ulcer of foot: Plan This is a 64-year-old male with PMHx of end-stage renal disease on peritoneal dialysis, DM type II, CAD, HTN history of complete heart block, s/p pacemaker insertion, aortic valve, bicuspid, history of PE, peripheral vascular disease, s/p left great toe amputation,chronic left 2nd and 3rd toe wound, left well- healed heel ulcer, dry gangrene of right hand, who presents to the hospital with approximately 24 hours of increased confusion, lethargy, fever, chills/rigors 2/2 sepsis. Severe Sepsis, resolved MSSA bacteremia Left 2nd/3rd Digit Foot Osteomyelitis s/p amputation Right 4th/5th Digit Osteomyelitis s/p amputation -Foot MRI: OM of left 2nd and 3rd toes. -MRI L spine (done for concerns of reported back pain): no concerns for OM. -Admitting (10/10) Bl Cx: 4 out of 4 bottles growing MSSA -Repeat Bl cx 10/12: 1 of 4 bottle growing S. Aureus [Of note, pt underwent L toe amputation later morning of 10/12]. -Left foot operative Cx 10/12: MSSA, also growing Helococcus and Anaerococcus. -MRI Rt finger (4th and 5th) 10/13: osteomyelitis at the fourth and fifth distal phalanges. -Right ring finger operative Cx 10/14: staph and Enterobacter and cutibacterium growing, follow final results. Plan: -ID evaled, recommends iv cefazolin daily. for 6 weeks from the date of last neg blood culture. ~Discussed with ID again 10/19 evening regarding additional growth in operative cultures, no new antibiotic coverage needed, continue with prior antibiotic plan. -Due to patient's increased need pt's states she won't be able to care at home, LTAC would be better option but per CM pt's declines. ~Plan for peritoneal dialysis catheter removal and TDC placement prior to discharge. ID and Nephro agrees. ~Discussed with vascular surgery 10/18, no need to hold DAPT, plan for TDC placement 10/21. -patient and would like [facility] at this time Back Pain -likely 2/2 deconditioning. vitamin D level low Plan: -increased vit D3 to 125 mcg daily -OOB few times a day and PT daily as able -c/w pain Mx, follow. c/w bowel regimen while on opiates.Repeat Vit D level in 2-3 months. -pain management consult, appreciate recs Elevated high sensitive troponin Likely demand ischemia in setting of sepsis -High sensitive troponin elevated to 249 on admission; -Echocardiogram obtained; reviewed ESRD on peritoneal dialysis - -Nephro on board for dialysis assistance DM II -SSI HTN -c/w home atenolol, torsemide and amlodipine. 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 04/2014 Carotid duplex showed < 50% carotid stenosis bilaterally (report scanned in [facility]). -06/2023 carotid duplex demonstrates less than 50% carotid stenosis b/l ICAs. Hx PE in 2010, treated with Coumadin for ~3 months. -No longer on anticoagulation I spent a total of 50 minutes in direct patient care, including [id number] time with the patient and/or family, reviewing medical records, ordering and reviewing diagnostic tests, and coordinating care with other healthcare providers. This time includes: history taking, physical examination, medical decision making, counseling, ECG interpretation, imaging interpretation, lab interpretation, orders, and education, excluding time spent in the performance of separately billed services. Admission and Anticipated Discharge Date Admission Date: October 10, 2024 Subjective Patient seen and examined at bedside. present as well. Patient doing well today, some back pain which is chronic. Patient and looking forward to acute rehab. Review of Systems Review of Systems: CONSTITUTIONAL: Patient denies fevers, chills, sweats and weight changes. EYES: Patient denies any visual symptoms. EARS, NOSE, AND THROAT: No difficulties with hearing. No symptoms of rhinitis or sore throat. CARDIOVASCULAR: Patient denies chest pains, palpitations, orthopnea and paroxysmal nocturnal dyspnea. RESPIRATORY: No dyspnea on exertion, no wheezing or cough. GI: No nausea, vomiting, diarrhea, constipation, abdominal pain, hematochezia or melena. : No urinary hesitancy or dribbling. No nocturia or urinary frequency. No abnormal urethral discharge. MUSCULOSKELETAL: back pain NEUROLOGIC: No chronic headaches, no seizures. Patient denies numbness, tingling or weakness. PSYCHIATRIC: Patient denies problems with mood disturbance. No problems with anxiety. ENDOCRINE: No excessive urination or excessive thirst. DERMATOLOGIC: Patient denies any rashes or skin changes. Physical Exam 2 Physical Exam: Gen: A&O 3 NAD, sarcopenia noted HEENT: NCAT, EOMI, not icteric. External ears normal. No rhinorrhea. Moist mucous membranes. Neck: Supple, full range of motion, no observable masses, No meningeal sign. Lungs: No Respiratory distress. CV: RRR, no edema. Abdomen: Soft, nondistended, No rebound tenderness. MSK: clean wounds on right fingers s/p amputation, foot wounds noted Skin: No rashes, petechiae, lesions. Normal color per patient. Neuro: Normal Gait, Grossly intact. Psych: Appropriate for situation. Results & Data Results & Data Vital Signs (Past 12 Hours) Vital Signs Temp Pulse Pulse Pulse Resp BP Pulse Ox 10/19/24 07:55 36.4 C L 68 18 10/19/24 07:34 36.3 C L 71 18 115/46 L 97 10/19/24 07:00 66 10/19/24 03:14 36.6 C 69 16 125/78 95 10/18/24 22:45 36.6 C 77 16 136/80 92 O2 Del Method 10/19/24 07:55 10/19/24 07:34 Room Air 10/19/24 07:00 10/19/24 03:14 Room Air 10/18/24 22:45 Room Air Laboratory Results -personally reviewed, WBC around same as prior, Hgb at baseline, calcium 8.1 and replenished Medications Administered Acetaminophen (Acetaminophen 325 Mg Tab) 650 mg PO Q4H PRN PRN Reason: Moderate Pain (Scale 4, 5, 6) Stop: 11/09/24 15:30 Last Admin: 10/17/24 04:07 Dose: 650 mg Documented By: Admin: 10/10/24 20:32 Dose: 650 mg Documented By: SARAH Amlodipine Besylate (Amlodipine Besylate 5 Mg Tab) 2.5 mg PO QAM ESTHER Stop: 11/12/24 08:59 Last Admin: 10/19/24 08:15 Dose: 2.5 mg Documented By: Admin: 10/18/24 08:12 Dose: 2.5 mg Documented By: Admin: 10/17/24 08:11 Dose: 2.5 mg Documented By: TB Co-signed By: LCS Admin: 10/16/24 08:14 Dose: 2.5 mg Documented By: Admin: 10/15/24 08:20 Dose: 2.5 mg Documented By: TB Co-signed By: LCS Admin: 10/14/24 08:16 Dose: 2.5 mg Documented By: TB Co-signed By: ALMAS Admin: 10/13/24 08:50 Dose: 2.5 mg Documented By: SALLY Aspirin (Aspirin 81 Mg Ectab) 81 mg PO DAILY ESTHER Stop: 11/14/24 08:59 Last Admin: 10/19/24 08:14 Dose: 81 mg Documented By: Admin: 10/18/24 08:12 Dose: 81 mg Documented By: Admin: 10/17/24 08:10 Dose: 81 mg Documented By: TB Co-signed By: ALMAS Admin: 10/16/24 08:14 Dose: 81 mg Documented By: Admin: 10/15/24 09:17 Dose: 81 mg Documented By: TB Co-signed By: RAUL Atenolol (Atenolol 50 Mg Tablet) 50 mg PO QAM [facility] Stop: 11/11/24 13:59 Last Admin: 10/19/24 08:14 Dose: 50 mg Documented By: Admin: 10/18/24 08:13 Dose: 50 mg Documented By: Admin: 10/17/24 08:11 Dose: 50 mg Documented By: TB Co-signed By: ALMAS Admin: 10/16/24 08:14 Dose: 50 mg Documented By: Admin: 10/15/24 08:20 Dose: 50 mg Documented By: TB Co-signed By: ALMAS Admin: 10/14/24 08:15 Dose: 50 mg Documented By: TB Co-signed By: ALMAS Admin: 10/13/24 10:05 Dose: 50 mg Documented By: Admin: 10/12/24 15:20 Dose: 50 mg Documented By: ADILENE Atorvastatin Calcium (Atorvastatin 40 Mg Tab) 80 mg PO QPM ESTHER Stop: 11/09/24 20:59 Last Admin: 10/18/24 22:09 Dose: 80 mg Documented By: Admin: 10/17/24 19:59 Dose: 80 mg Documented By: Admin: 10/16/24 20:53 Dose: 80 mg Documented By: Admin: 10/15/24 20:12 Dose: 80 mg Documented By: Admin: 10/14/24 22:04 Dose: 80 mg Documented By: Admin: 10/13/24 20:58 Dose: 80 mg Documented By: Admin: 10/12/24 20:27 Dose: 80 mg Documented By: Admin: 10/11/24 20:31 Dose: 80 mg Documented By: Admin: 10/10/24 20:25 Dose: 80 mg Documented By: SARAH Clopidogrel Bisulfate (Clopidogrel Bisulfate 75 Mg Tab) 75 mg PO HS ESTHER Stop: 11/09/24 20:59 Last Admin: 10/18/24 22:08 Dose: 75 mg Documented By: Admin: 10/17/24 19:58 Dose: 75 mg Documented By: Admin: 10/16/24 20:54 Dose: 75 mg Documented By: Admin: 10/15/24 20:12 Dose: 75 mg Documented By: Admin: 10/14/24 22:04 Dose: 75 mg Documented By: Admin: 10/13/24 20:58 Dose: 75 mg Documented By: Admin: 10/12/24 20:27 Dose: 75 mg Documented By: Admin: 10/11/24 20:32 Dose: 75 mg Documented By: Admin: 10/10/24 20:24 Dose: 75 mg Documented By: SARAH Diclofenac Sodium (Diclofenac Sod 1% Gel 100 Gm Tube) 4 gm EXT Q6H ESTHER; Protocol Stop: 11/13/24 10:29 Last Admin: 10/19/24 04:30 Dose: Not Given Documented By: MMEliceo Admin: 10/18/24 22:10 Dose: Not Given Documented By: Admin: 10/18/24 17:38 Dose: 4 gm Documented By: Admin: 10/18/24 12:05 Dose: 4 gm Documented By: Admin: 10/18/24 04:40 Dose: Not Given Documented By: Admin: 10/17/24 21:34 Dose: Not Given Documented By: Admin: 10/17/24 16:49 Dose: 4 gm Documented By: TB Co-signed By: ALMAS Admin: 10/17/24 12:10 Dose: 4 gm Documented By: TB Co-signed By: ALMAS Admin: 10/17/24 04:08 Dose: 4 gm Documented By: Admin: 10/16/24 22:54 Dose: Not Given Documented By: Admin: 10/16/24 16:22 Dose: 4 gm Documented By: Admin: 10/16/24 09:46 Dose: 4 gm Documented By: Admin: 10/16/24 05:18 Dose: 4 gm Documented By: Admin: 10/15/24 21:42 Dose: 4 gm Documented By: Admin: 10/15/24 16:57 Dose: 4 gm Documented By: TB Co-signed By: ALMAS Admin: 10/15/24 12:02 Dose: 4 gm Documented By: TB Co-signed By: ALMAS Admin: 10/15/24 04:20 Dose: 4 gm Documented By: Admin: 10/14/24 22:05 Dose: 4 gm Documented By: Admin: 10/14/24 16:45 Dose: 4 gm Documented By: TB Co-signed By: ALMAS Admin: 10/14/24 11:03 Dose: 4 gm Documented By: CARITO Co-signed By: ALMAS Docusate Sodium (Docusate Sodium 100 Mg Cap) 100 mg PO BID ESTHER Stop: 11/11/24 20:59 Last Admin: 10/19/24 08:13 Dose: 100 mg Documented By: Admin: 10/19/24 01:37 Dose: Not Given Documented By: Admin: 10/18/24 08:11 Dose: 100 mg Documented By: Admin: 10/17/24 19:59 Dose: 100 mg Documented By: Admin: 10/17/24 08:12 Dose: Not Given Documented By: Admin: 10/16/24 20:58 Dose: 100 mg Documented By: Admin: 10/16/24 08:14 Dose: Not Given Documented By: Admin: 10/15/24 20:12 Dose: 100 mg Documented By: Admin: 10/15/24 08:49 Dose: Not Given Documented By: Admin: 10/14/24 22:04 Dose: 100 mg Documented By: Admin: 10/14/24 08:16 Dose: Not Given Documented By: Admin: 10/13/24 20:57 Dose: 100 mg Documented By: Admin: 10/13/24 08:51 Dose: 100 mg Documented By: Admin: 10/12/24 20:28 Dose: Not Given Documented By: AKP Gabapentin (Gabapentin 600 Mg Tab) 600 mg PO TID ESTHER Stop: 11/09/24 15:30 Last Admin: 10/19/24 08:14 Dose: 600 mg Documented By: Admin: 10/18/24 22:08 Dose: 600 mg Documented By: Admin: 10/18/24 14:34 Dose: 600 mg Documented By: Admin: 10/18/24 08:14 Dose: 600 mg Documented By: Admin: 10/17/24 19:58 Dose: 600 mg Documented By: Admin: 10/17/24 14:08 Dose: 600 mg Documented By: TB Co-signed By: LCS Admin: 10/17/24 08:10 Dose: 600 mg Documented By: TB Co-signed By: LCS Admin: 10/16/24 20:54 Dose: 600 mg Documented By: Admin: 10/16/24 13:31 Dose: 600 mg Documented By: Admin: 10/16/24 08:15 Dose: 600 mg Documented By: Admin: 10/15/24 20:12 Dose: 600 mg Documented By: Admin: 10/15/24 14:15 Dose: 600 mg Documented By: TB Co-signed By: LCS Admin: 10/15/24 08:21 Dose: 600 mg Documented By: TB Co-signed By: LCS Admin: 10/14/24 22:04 Dose: 600 mg Documented By: Admin: 10/14/24 16:43 Dose: 600 mg Documented By: TB Co-signed By: LCS Admin: 10/14/24 08:15 Dose: 600 mg Documented By: TB Co-signed By: LCS Admin: 10/13/24 20:58 Dose: 600 mg Documented By: Admin: 10/13/24 13:56 Dose: 600 mg Documented By: Admin: 10/13/24 08:50 Dose: 600 mg Documented By: Admin: 10/12/24 20:27 Dose: 600 mg Documented By: Admin: 10/12/24 14:02 Dose: 600 mg Documented By: Admin: 10/12/24 08:08 Dose: 600 mg Documented By: Admin: 10/11/24 20:32 Dose: 600 mg Documented By: Admin: 10/11/24 13:38 Dose: 600 mg Documented By: Admin: 10/11/24 08:54 Dose: 600 mg Documented By: Admin: 10/10/24 20:24 Dose: 600 mg Documented By: Admin: 10/10/24 16:25 Dose: 600 mg Documented By: EDD Heparin Sodium (Porcine) (Heparin Sod 5,000 Unit/0.5 Ml Vial) 5,000 units SQ Q8 [facility] Stop: 11/10/24 13:59 Last Admin: 10/19/24 06:25 Dose: 5,000 units Documented By: MMEliceo Admin: 10/18/24 22:09 Dose: 5,000 units Documented By: Admin: 10/18/24 14:34 Dose: 5,000 units Documented By: Admin: 10/18/24 05:52 Dose: 5,000 units Documented By: Admin: 10/17/24 21:34 Dose: 5,000 units Documented By: Admin: 10/17/24 13:59 Dose: 5,000 units Documented By: CARITO Co-signed By: ALMAS Admin: 10/17/24 05:51 Dose: 5,000 units Documented By: Admin: 10/16/24 22:54 Dose: Not Given Documented By: Admin: 10/16/24 13:31 Dose: 5,000 units Documented By: Admin: 10/16/24 05:31 Dose: 5,000 units Documented By: Admin: 10/15/24 21:41 Dose: 5,000 units Documented By: Admin: 10/15/24 14:15 Dose: 5,000 units Documented By: CARITO Co-signed By: LCS Admin: 10/15/24 06:37 Dose: 5,000 units Documented By: Admin: 10/14/24 22:05 Dose: 5,000 units Documented By: Admin: 10/13/24 13:58 Dose: 5,000 units Documented By: Admin: 10/13/24 06:25 Dose: 5,000 units Documented By: Admin: 10/12/24 20:31 Dose: 5,000 units Documented By: Admin: 10/12/24 14:02 Dose: 5,000 units Documented By: Admin: 10/12/24 05:45 Dose: 5,000 units Documented By: Admin: 10/11/24 21:09 Dose: 5,000 units Documented By: Admin: 10/11/24 13:38 Dose: 5,000 units Documented By: KTS Hydromorphone HCl (Hydromorphone Inj 0.5 Mg/0.5 Ml Syr) 0.5 mg IV Q6H PRN PRN Reason: Severe Pain (Scale 7, 8, 9,10) Stop: 10/29/24 14:01 Last Admin: 10/16/24 11:28 Dose: 0.5 mg Documented By: Admin: 10/15/24 20:17 Dose: 0.5 mg Documented By: Admin: 10/15/24 14:16 Dose: 0.5 mg Documented By: TB Co-signed By: ALMAS Cefazolin Sodium (Ancef 1000mg) 1,000 mg in 7.5 mls @ 2.5 mls/min IV Q24H [facility] Stop: 11/22/24 15:59 Last Admin: 10/18/24 17:15 Dose: 2.5 mls/min Documented By: Admin: 10/17/24 16:49 Dose: 2.5 mls/min Documented By: TB Co-signed By: ALMAS Admin: 10/16/24 16:22 Dose: 2.5 mls/min Documented By: Admin: 10/15/24 16:57 Dose: 2.5 mls/min Documented By: CARITO Co-signed By: ALMAS Admin: 10/14/24 16:46 Dose: 2.5 mls/min Documented By: TB Co-signed By: ALMAS Admin: 10/13/24 15:50 Dose: 2.5 mls/min Documented By: TB Co-signed By: OO Admin: 10/12/24 15:20 Dose: 2.5 mls/min Documented By: Admin: 10/11/24 17:43 Dose: 2.5 mls/min Documented By: KTS Insulin Aspart (Insulin Aspart Per Unit Charge) 0 units SC ACHS ESTHER Stop: 11/13/24 05:59 Last Admin: 10/19/24 08:13 Dose: 6 units Documented By: JANINE Co-signed By: AM Admin: 10/18/24 22:10 Dose: 7 units Documented By: KIKE Co-signed By: JOSE Admin: 10/18/24 17:15 Dose: 14 units Documented By: ALMAS Co-signed By: JAIME Admin: 10/18/24 12:02 Dose: 9 units Documented By: LCS Co-signed By: ANDRE Admin: 10/18/24 08:10 Dose: 8 units Documented By: ALMAS Co-signed By: ANDRE Admin: 10/17/24 21:33 Dose: 5 units Documented By: DAVID Co-signed By: JOSE Admin: 10/17/24 16:49 Dose: Not Given Documented By: Admin: 10/17/24 12:10 Dose: 11 units Documented By: TB Co-signed By: ALMAS Admin: 10/17/24 08:08 Dose: 9 units Documented By: TB Co-signed By: LCS Admin: 10/16/24 20:58 Dose: 7 units Documented By: JINNY Co-signed By: OS Admin: 10/16/24 17:02 Dose: Not Given Documented By: Admin: 10/16/24 12:03 Dose: 12 units Documented By: LCS Co-signed By: CA Admin: 10/16/24 08:12 Dose: 10 units Documented By: LCS Co-signed By: NADER Admin: 10/15/24 21:41 Dose: 1 units Documented By: SANDOR Co-signed By: [id number] Admin: 10/15/24 16:56 Dose: 7 units Documented By: TB Co-signed By: LCS Admin: 10/15/24 12:02 Dose: 12 units Documented By: TB Co-signed By: LCS Admin: 10/15/24 08:21 Dose: 7 units Documented By: TB Co-signed By: LCS Admin: 10/14/24 22:04 Dose: 2 units Documented By: SANDOR Co-signed By: REMY Admin: 10/14/24 17:47 Dose: 6 units Documented By: CARITO Co-signed By: ALMAS Insulin Glargine (Lantus Per Unit Charge) 20 units SC BID ESTHER Stop: 11/09/24 20:59 Last Admin: 10/19/24 08:13 Dose: 20 units Documented By: JANINE Co-signed By: ANTONIETA Ondansetron HCl (Ondansetron Inj 2 Mg/Ml 2 Ml Vial) 4 mg IV Q4H PRN PRN Reason: Nausea And Vomiting Stop: 11/09/24 15:30 Last Admin: 10/16/24 12:21 Dose: 4 mg Documented By: ALMAS Oxycodone HCl (Oxycodone Hcl Ir 5 Mg Tab (Immediate Release)) 5 mg PO Q6H PRN PRN Reason: Pain Stop: 10/27/24 13:00 Last Admin: 10/19/24 01:35 Dose: 5 mg Documented By: Admin: 10/18/24 17:15 Dose: 5 mg Documented By: Admin: 10/18/24 09:36 Dose: 5 mg Documented By: Admin: 10/17/24 11:10 Dose: 5 mg Documented By: CARITO Co-signed By: ALMAS Admin: 10/17/24 04:07 Dose: 5 mg Documented By: Admin: 10/16/24 07:40 Dose: 5 mg Documented By: Admin: 10/15/24 17:03 Dose: 5 mg Documented By: CARITO Co-signed By: ALMAS Admin: 10/15/24 10:19 Dose: 5 mg Documented By: CARITO Co-signed By: ALMAS Admin: 10/15/24 04:18 Dose: 5 mg Documented By: Admin: 10/14/24 16:52 Dose: 5 mg Documented By: CARITO Co-signed By: ALMAS Admin: 10/14/24 10:24 Dose: 5 mg Documented By: CARITO Co-signed By: ALMAS Polyethylene Glycol (Polyethylene (Miralax) 17 Gm Pack) 17 gm PO DAILY ESTHER Stop: 11/16/24 13:44 Last Admin: 10/19/24 08:13 Dose: 17 gm Documented By: Admin: 10/18/24 08:11 Dose: 17 gm Documented By: Admin: 10/17/24 13:59 Dose: 17 gm Documented By: CARITO Co-signed By: ALMAS Torsemide (Torsemide 100 Mg Tab) 100 mg PO DAILY ESTHER Stop: 11/12/24 08:59 Last Admin: 10/19/24 08:15 Dose: 100 mg Documented By: Admin: 10/18/24 08:14 Dose: 100 mg Documented By: Admin: 10/17/24 08:10 Dose: 100 mg Documented By: TB Co-signed By: ALMAS Admin: 10/16/24 08:15 Dose: 100 mg Documented By: Admin: 10/15/24 08:21 Dose: 100 mg Documented By: CARITO Co-signed By: ALMAS Admin: 10/14/24 08:15 Dose: 100 mg Documented By: ACRITO Co-signed By: ALMAS Admin: 10/13/24 08:49 Dose: 100 mg Documented By: SirenaO Vitamin D (Cholecalciferol 125 Mcg (5,000 Units) Tab) 125 mcg PO QAM ESTHER Stop: 11/14/24 13:59 Last Admin: 10/19/24 08:14 Dose: 125 mcg Documented By: Admin: 10/18/24 08:13 Dose: 125 mcg Documented By: Admin: 10/17/24 08:10 Dose: 125 mcg Documented By: CARITO Co-signed By: ALMAS Admin: 10/16/24 09:46 Dose: 125 mcg Documented By: Admin: 10/15/24 14:30 Dose: 125 mcg Documented By: TB Co-signed By: JANINE (1) Sepsis Sepsis acute organ dysfunction status: with acute organ dysfunction Sepsis type: sepsis due to unspecified organism Severe sepsis acute organ dysfunction type: encephalopathy Severe sepsis shock status: without septic shock Qualified Code(s): A41.9 - Sepsis, unspecified organism; R65.20 - Severe sepsis without septic shock; G93.41 - Metabolic encephalopathy
[2024-10-19] MEDS: CALCIUM GLUCONATE 1,000 MG/60 ML BAG IV STA (11:31)
[2024-10-19] MEDS: SENNA 8.6 MG TAB PO SCH (16:50)
[2024-10-19] MEDS: LIDOCAINE 5% 1 PATCH TD SCH (16:50)
[2024-10-19] MEDS: POLYETHYLENE (MIRALAX) 17 GM PACK PO ONE (16:50)
[2024-10-19] MEDS: REMOVE LIDODERM PATCH SCH (20:57)
[2024-10-20 07:43] LABS: Alanine Aminotransferase 3.0 U/L (7-52); Albumin Globulin Ratio 0.8 (0.9-2); Alkaline Phosphatase 200.0 U/L (34-104); Anion Gap 13.0 (3-11); Bilirubin,Total 0.4 mg/dl (0.2-1.0); Blood Urea Nitrogen 84.0 mg/dl (6-23); Calcium 8.5 mg/dl (8.6-10.3); Carbon Dioxide 26.0 mmol/L (21-32); Chloride 93.0 mmol/L (98-107); Creatinine Clr Calc Pharmacy 11.9 ml/min; Globulin 4.0 gm/dl (2.5-4.0); Glucose 102.0 mg/dl (70-99(Fasting)); Potassium 3.6 mmol/L (3.5-5.1); Sodium 132.0 mmol/L (136-145); Total Protein 7.0 gm/dl (6.0-8.3)
[2024-10-20] MEDS: CALCIUM GLUCONATE 1,000 MG/60 ML BAG IV STA (09:56)
--- NOTE | 2024-10-20 10:02 | Nephrology Progress Note ---
Date of Service October 20, 2024 Assessment & Plan (1) ESRD on peritoneal dialysis: Plan: patient does not have much residual renal function left as he makes only about 500ml of urine per day, has made as much as 1.2L on one day at least this admission he has been doing peritoneal dialysis through a nocturnal cycler at home for the last few months. Previously was on hemodialysis and desires to change back to HD for foreseeable future not only for rehab but b/c of carepartner fatigue/health issues ESRD secondary to diabetes hypertension and chronic diffuse vascular disease. fluid status acceptable labs appear acceptable though reemerging hyponatremia which is improved today some at 133 Hold PD for tonight. Had been doing all 2.5% and do 2500 mL fill volume over 10-12 hours. during the entire hospitalization we have done pretty much the same 10/[address] dialysis catheter (on plavix, active infection though should be now w/ source control) ->plan HD after TDC placement tomorrow to ensure cath function; transfer to rehab likely on weekend ->needs IV abx for 6 weeks. (2) Sepsis: Plan: PD fluid negative for peritonitis. No need of IP abx . ID eval done. MSSA bacteremia. ANI--negative. getting Some Amputations. Blood C/s from 10/14 so far negative. 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 for Cefazolin for 6 weeks. >>NEEDS bm daily to prevent translocational peritonitis - primary service aware Admission and Anticipated Discharge Date Admission Date: October 10, 2024 Subjective 2.4 L UF overnight; for OR 0700 10/21 large bowel movement yesterday. Feeling well. Not dizzy not lightheaded. No edema no shortness of breath no abdominal pain or nausea Review of Systems 2 Review of Systems: All systems reviewed & are unremarkable except as noted in Subjective Physical Exam 2 Constitutional: well developed and well nourished Eyes: EOM intact bilaterally ENMT: Mouth: + dry oral mucous membranes Respiratory: normal respiratory effort Auscultation: + diminished lung sounds Cardiovascular: Rate/Rhythm: regular rate and regular rhythm Extremities: n o edema Gastrointestinal (Abdomen): Inspection/Auscultation: normal bowel sounds and + abdominal surgical drain present (PD cath) Percussion/Palpation: abdomen soft; abdomen nontender Musculoskeletal: Extremities: strength 5/5 throughout Skin: no rashes, warm and dry Results & Data Vital Signs (Past 12 Hours) Vital Signs Temp Pulse Pulse Resp BP Pulse Ox O2 Del Method 10/20/24 08:10 36.5 C 62 15 99/62 L 96 Room Air 10/20/24 07:57 36.5 C 62 15 10/20/24 04:00 36.5 C 67 18 124/66 94 Room Air 10/20/24 00:32 36.5 C 72 16 127/60 95 Room Air 10/20/24 00:00 74 Laboratory Results 10/19/24 06:07 10/20/24 06:47 (2) Sepsis Sepsis acute organ dysfunction status: with acute organ dysfunction Sepsis type: sepsis due to unspecified organism Severe sepsis acute organ dysfunction type: encephalopathy Severe sepsis shock status: without septic shock Qualified Code(s): A41.9 - Sepsis, unspecified organism; R65.20 - Severe sepsis without septic shock; G93.41 - Metabolic encephalopathy
--- NOTE | 2024-10-20 11:36 | Pharmacy Report ---
Pharmacy Glycemic Short Note 2 - Date of Service October 20, 2024 - Glycemic Short BSG Results (Last 24 hours): 10/19/24 10/19/24 10/20/24 16:12 20:37 06:47 Glucose 102 H POC Glucose 137 H 142 H 10/20/24 10/20/24 07:25 11:09 Glucose POC Glucose 115 H 107 H OUTPATIENT ANTIDIABETIC REGIMEN: * NovoLog 5 units SQ QAM, 10 units @ noon, 10 units in afternoon, CF 20 >140mg/dL * Lantus 20 untis SQ BID * HbA1c is unreliable in ESRD patients d/t interactions between the A1c analyzing technique and high levels of urea in ESRD, reduced RBC life span, iron deficiency anemia, and EPO administration. HbA1c > 7.5% in ESRD patient may overestimate the extent of hyperglycemia in ESRD patients. ASSESSMENT: 10/20: * Patient received 64 units of insulin yesterday, 40 of which were basal. BSGs have been well controlled over the past 24 hours: [phone] mg/dL * Fasting BSG remains adequate at 115 mg/dL. * Patient is ordered and tolerating a diet. * Plan to transition to HD tomorrow from PD. 10/18 * Patient has received 25 units BID per scale x last 3 days- fasting within range, will schedule * BSGs slightly lower than goal with lunch/dinner yesterday but not hypoglycemic. Patient has refused with insulin with dinner leading to high HS blood sugar. Will loosen carb ratio slightly to try and maintain BSG 110-140 mg/dL 10/14 * NPO for OR this AM * Fasting BSG elevated this AM. Increased lantus sliding scale. * Tightened CF and CR 2nd elevated post-prandial glucose. 10/13 * Diet resumed this AM after ANI * Fasting BSG elevated. Will increase Lantus * One post-prandial BSG elevated yesterday after tightening Novolog parameters. Will not make further adjustments for now, but may consider tightening Novolog parameters if post-prandial BSG's remain elevated. 10/12 * Fasting BSG 183 mg/dL this morning, received 40 units of lantus yesterday. Patient NPO this morning for amputation, plan for ANI tomorrow under anesthesia * Reduced basal AM dose to 15 units, scale for PM for a total ~40-25% reduction today. * Novolog parameters were tightened given increases in prandial BSGs yesterday- monitor 10/11 * Stressors stable. Confirmed MSSA bacteremia * BSG's trending down, although a little slowly. * Will maintain Lantus. Home dose at upper end of range but will titrate down if/when BSG's decrease into goal range to avoid further reduction in BSG * Will maintain Novolog as-is, unless see trend up in BSG's at lunch today. If trends up, will tighten CF and/or CR slightly 10/10 * Otto is a 64 year old male admitted with sepsis and a history of type 2 diabetes mellitus complicated by ESRD on PD. Pharmacy has been consulted to assist with glycemic management while inpatient. * BSG upon admission elevated, missed morning insulin per H&P, likely cause of hyperglycemia. Stat correctional and basal insulin ordered. * Will initiate basal scale up to a weight based stress of 2 and Lantus at about a weight based stress of 2. PLAN FOR INPATIENT GLYCEMIC CONTROL: * Hold outpatient oral diabetes medications * Basal insulin * Lantus 20 units SQ BID * Bolus insulin * NovoLog per scale ACHS or Q6hrs while NPO * Goal Range: Low 110 mg/dL - High 140 mg/dL * Correction Factor: 20 mg/dL/unit * Nutritional / Prandial insulin per carb ratio of 1 unit per 7 grams CHO consumed
--- NOTE | 2024-10-20 13:48 | Podiatry Progress Note ---
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 - Foot cleaned, redressed with Optifoam adhesive gauze. - Sutures will be removed at two weeks. Should keep dressing clean, dry, and intact until then. - Agree with plan for longer term IV abx based on multiple comorbid infections, though foot OM should be definitively excised. Pathology pending - Will continue to follow. No further surgical intervention pending for foot/ankle. Admission and Anticipated Discharge Date Admission Date: October 10, 2024 Subjective Patient seen at bedside. Pending port change tomorrow surgically; otherwise, doing well without concern. Pending placement for dry can tender care. Review of Systems Constitutional: + fever, + chills, + sweats, + fatigue a nd + weakness Eyes: no problem reported Ear, Nose, Mouth, Throat: no problem reported Respiratory: no problem reported Cardiovascular: + edema; no problem reported Gastrointestinal: + nausea; no vomiting and no problem rep orted Musculoskeletal: + muscle weakness; no problem reported Integumentary: + skin ulcer, + wounds and + erythema Neurologic: + loss of sensation, + numbness and + pa resthesia; no generalized weakness Psychiatric: + confusion Physical Exam Physical Exam: Lower extremity focused exam: DP/PT pulses nonpalpable. CFT brisk to the digits. Advanced trophic changes noted to b/l lower extremity. Sutures intact to left foot surgical site. No worsening evidence of necrosis or infection. Constitutional: WD/WN, vitals as above + ill appearing, + morbidly obese and + obese; no acute distress Eyes: PERRL, conjunctivae normal, anicteric sclerae ENMT: external ear and nose normal, oropharynx normal Mouth: + poor dentition Neck: trachea midline, no thyromegaly normal visual inspection Respiratory: normal respiratory effort; no respiratory distress Cardiovascular: Rate/Rhythm: regular rate and regular rhythm Vessels: + posterior tibial pulses abnormal and + dorsalis pedis pulses abnormal Chest (Breasts): Chest: normal inspection of chest Gastrointestinal (Abdomen): Inspection/Auscultation: abdomen normal to inspection Percussion/Palpation: + abdomen tender and abdomen soft Musculoskeletal: no cyanosis or clubbing, extremities motor strength 5/5 Head/Neck/Chest: normocephalic and head atraumatic Extremities: extremities normal to inspection Skin: + ulcer, + wound, + erythema and + nails dystrophic Neurologic: moves all extremities, awake and + confused; + abnormal sensation to monofilament and no focal motor deficits Psychiatric: A+Ox3, euthymic affect Results & Data Results & Data Vital Signs (Past 12 Hours) Vital Signs Temp Pulse Pulse Resp BP Pulse Ox O2 Del Method 10/20/24 11:42 36.4 C L 69 16 118/86 97 Room Air 10/20/24 08:10 36.5 C 62 15 99/62 L 96 Room Air 10/20/24 07:57 36.5 C 62 15 10/20/24 07:00 70 10/20/24 04:00 36.5 C 67 18 124/66 94 Room Air (1) 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 Diabetes mellitus type: type 2 Diabetic foot ulcer location: toe Laterality: left Qualified Code(s): E11.621 - Type 2 diabetes mellitus with foot ulcer; L97.524 - Non-pressure chronic ulcer of other part of left foot with necrosis of bone (3) Sepsis Sepsis acute organ dysfunction status: with acute organ dysfunction Sepsis type: sepsis due to unspecified organism Severe sepsis acute organ dysfunction type: encephalopathy Severe sepsis shock status: without septic shock Qualified Code(s): A41.9 - Sepsis, unspecified organism; R65.20 - Severe sepsis without septic shock; G93.41 - Metabolic encephalopathy
--- NOTE | 2024-10-20 14:47 | Hospitalist Progress Note ---
Date of Service October 20, 2024 Assessment & Plan (1) Sepsis: (2) Diabetes mellitus: (3) Diabetic peripheral neuropathy associated with type 2 diabetes mellitus: (4) Peripheral vascular disease: (5) ESRD on peritoneal dialysis: (6) HTN (hypertension): (7) S/P cardiac pacemaker procedure: (8) History of diabetic ulcer of foot: Plan This is a 64-year-old male with PMHx of end-stage renal disease on peritoneal dialysis, DM type II, CAD, HTN history of complete heart block, s/p pacemaker insertion, aortic valve, bicuspid, history of PE, peripheral vascular disease, s/p left great toe amputation,chronic left 2nd and 3rd toe wound, left well- healed heel ulcer, dry gangrene of right hand, who presents to the hospital with approximately 24 hours of increased confusion, lethargy, fever, chills/rigors 2/2 sepsis. Severe Sepsis, resolved MSSA bacteremia Left 2nd/3rd Digit Foot Osteomyelitis s/p amputation Right 4th/5th Digit Osteomyelitis s/p amputation -Foot MRI: OM of left 2nd and 3rd toes. -MRI L spine (done for concerns of reported back pain): no concerns for OM. -Admitting (10/10) Bl Cx: 4 out of 4 bottles growing MSSA -Repeat Bl cx 10/12: 1 of 4 bottle growing S. Aureus [Of note, pt underwent L toe amputation later morning of 10/12]. -Left foot operative Cx 10/12: MSSA, also growing Helococcus and Anaerococcus. -MRI Rt finger (4th and 5th) 10/13: osteomyelitis at the fourth and fifth distal phalanges. -Right ring finger operative Cx 10/14: staph and Enterobacter and cutibacterium growing, follow final results. Plan: -ID evaled, recommends iv cefazolin daily. for 6 weeks from the date of last neg blood culture. ~Discussed with ID again 10/19 evening regarding additional growth in operative cultures, no new antibiotic coverage needed, continue with prior antibiotic plan. -Due to patient's increased need pt's states she won't be able to care at home, LTAC would be better option but per CM pt's declines. ~Plan for peritoneal dialysis catheter removal and TDC placement prior to discharge. ID and Nephro agrees. ~Discussed with vascular surgery 10/18, no need to hold DAPT, plan for TDC placement 10/21. -patient and would like [facility] at this time, medically stable for discharge pending disposition, [facility] to peer called and awaiting response with insurance Back Pain -likely 2/2 deconditioning. vitamin D level low Plan: -increased vit D3 to 125 mcg daily -OOB few times a day and PT daily as able -c/w pain Mx, follow. c/w bowel regimen while on opiates.Repeat Vit D level in 2-3 months. -pain management consult, appreciate recs Elevated high sensitive troponin Likely demand ischemia in setting of sepsis -High sensitive troponin elevated to 249 on admission; -Echocardiogram obtained; reviewed ESRD on peritoneal dialysis - -Nephro on board for dialysis assistance DM II -SSI HTN -c/w home atenolol, torsemide and amlodipine. 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 04/2014 Carotid duplex showed < 50% carotid stenosis bilaterally (report scanned in epic). -06/2023 carotid duplex demonstrates less than 50% carotid stenosis b/l ICAs. Hx PE in 2010, treated with Coumadin for ~3 months. -No longer on anticoagulation I spent a total of 50 minutes in direct patient care, including [id number] time with the patient and/or family, reviewing medical records, ordering and reviewing diagnostic tests, and coordinating care with other healthcare providers. This time includes: history taking, physical examination, medical decision making, counseling, ECG interpretation, imaging interpretation, lab interpretation, orders, and education, excluding time spent in the performance of separately billed services. Admission and Anticipated Discharge Date Admission Date: October 10, 2024 Subjective Patient seen and examined at bedside. present as well. Patient doing well today, no concerns at this time. Family aware of initial denial of acute rehab by insurance, called peer to peer today and awaiting a call back. Review of Systems Review of Systems: CONSTITUTIONAL: Patient denies fevers, chills, sweats and weight changes. EYES: Patient denies any visual symptoms. EARS, NOSE, AND THROAT: No difficulties with hearing. No symptoms of rhinitis or sore throat. CARDIOVASCULAR: Patient denies chest pains, palpitations, orthopnea and paroxysmal nocturnal dyspnea. RESPIRATORY: No dyspnea on exertion, no wheezing or cough. GI: No nausea, vomiting, diarrhea, constipation, abdominal pain, hematochezia or melena. : No urinary hesitancy or dribbling. No nocturia or urinary frequency. No abnormal urethral discharge. MUSCULOSKELETAL: back pain NEUROLOGIC: No chronic headaches, no seizures. Patient denies numbness, tingling or weakness. PSYCHIATRIC: Patient denies problems with mood disturbance. No problems with anxiety. ENDOCRINE: No excessive urination or excessive thirst. DERMATOLOGIC: Patient denies any rashes or skin changes. Physical Exam Physical Exam: Gen: A&O 3 NAD, sarcopenia noted HEENT: NCAT, EOMI, not icteric. External ears normal. No rhinorrhea. Moist mucous membranes. Neck: Supple, full range of motion, no observable masses, No meningeal sign. Lungs: No Respiratory distress. CV: RRR, no edema. Abdomen: Soft, nondistended, No rebound tenderness. MSK: clean wounds on right fingers s/p amputation, foot wounds noted Skin: No rashes, petechiae, lesions. Normal color per patient. Neuro: Normal Gait, Grossly intact. Psych: Appropriate for situation. Results & Data Results & Data Vital Signs (Past 12 Hours) Vital Signs Temp Pulse Pulse Resp BP Pulse Ox O2 Del Method 10/20/24 11:42 36.4 C L 69 16 118/86 97 Room Air 10/20/24 08:10 36.5 C 62 15 99/62 L 96 Room Air 10/20/24 07:57 36.5 C 62 15 10/20/24 07:00 70 10/20/24 04:00 36.5 C 67 18 124/66 94 Room Air Laboratory Results -personally reviewed, Na of 132 at baseline, creatinine relatively stable, elevated AG in setting of ESRD, ionized calcium of 1.07 replenished Medications Administered Acetaminophen (Acetaminophen 325 Mg Tab) 650 mg PO Q4H PRN PRN Reason: Moderate Pain (Scale 4, 5, 6) Stop: 11/09/24 15:30 Last Admin: 10/17/24 04:07 Dose: 650 mg Documented By: Admin: 10/10/24 20:32 Dose: 650 mg Documented By: SARAH Amlodipine Besylate (Amlodipine Besylate 5 Mg Tab) 2.5 mg PO QAM ESTHER Stop: 11/12/24 08:59 Last Admin: 10/20/24 08:22 Dose: 2.5 mg Documented By: Admin: 10/19/24 08:15 Dose: 2.5 mg Documented By: Admin: 10/18/24 08:12 Dose: 2.5 mg Documented By: Admin: 10/17/24 08:11 Dose: 2.5 mg Documented By: TB Co-signed By: LCS Admin: 10/16/24 08:14 Dose: 2.5 mg Documented By: Admin: 10/15/24 08:20 Dose: 2.5 mg Documented By: TB Co-signed By: LCS Admin: 10/14/24 08:16 Dose: 2.5 mg Documented By: TB Co-signed By: ALMAS Admin: 10/13/24 08:50 Dose: 2.5 mg Documented By: OSirena Aspirin (Aspirin 81 Mg Ectab) 81 mg PO DAILY ESTHER Stop: 11/14/24 08:59 Last Admin: 10/20/24 08:22 Dose: 81 mg Documented By: Admin: 10/19/24 08:14 Dose: 81 mg Documented By: Admin: 10/18/24 08:12 Dose: 81 mg Documented By: Admin: 10/17/24 08:10 Dose: 81 mg Documented By: TB Co-signed By: ALMAS Admin: 10/16/24 08:14 Dose: 81 mg Documented By: Admin: 10/15/24 09:17 Dose: 81 mg Documented By: TB Co-signed By: AAFabio Atenolol (Atenolol 50 Mg Tablet) 50 mg PO QAM ESTHER Stop: 11/11/24 13:59 Last Admin: 10/20/24 08:22 Dose: 50 mg Documented By: Admin: 10/19/24 08:14 Dose: 50 mg Documented By: Admin: 10/18/24 08:13 Dose: 50 mg Documented By: Admin: 10/17/24 08:11 Dose: 50 mg Documented By: TB Co-signed By: ALMAS Admin: 10/16/24 08:14 Dose: 50 mg Documented By: Admin: 10/15/24 08:20 Dose: 50 mg Documented By: TB Co-signed By: ALMAS Admin: 10/14/24 08:15 Dose: 50 mg Documented By: CARITO Co-signed By: ALMAS Admin: 10/13/24 10:05 Dose: 50 mg Documented By: Admin: 10/12/24 15:20 Dose: 50 mg Documented By: ADILENE Atorvastatin Calcium (Atorvastatin 40 Mg Tab) 80 mg PO QPM ESTHER Stop: 11/09/24 20:59 Last Admin: 10/19/24 20:55 Dose: 80 mg Documented By: Admin: 10/18/24 22:09 Dose: 80 mg Documented By: Admin: 10/17/24 19:59 Dose: 80 mg Documented By: Admin: 10/16/24 20:53 Dose: 80 mg Documented By: Admin: 10/15/24 20:12 Dose: 80 mg Documented By: Admin: 10/14/24 22:04 Dose: 80 mg Documented By: Admin: 10/13/24 20:58 Dose: 80 mg Documented By: Admin: 10/12/24 20:27 Dose: 80 mg Documented By: Admin: 10/11/24 20:31 Dose: 80 mg Documented By: Admin: 10/10/24 20:25 Dose: 80 mg Documented By: SARAH Clopidogrel Bisulfate (Clopidogrel Bisulfate 75 Mg Tab) 75 mg PO HS ESTHER Stop: 11/09/24 20:59 Last Admin: 10/19/24 20:55 Dose: 75 mg Documented By: Admin: 10/18/24 22:08 Dose: 75 mg Documented By: Admin: 10/17/24 19:58 Dose: 75 mg Documented By: Admin: 10/16/24 20:54 Dose: 75 mg Documented By: Admin: 10/15/24 20:12 Dose: 75 mg Documented By: Admin: 10/14/24 22:04 Dose: 75 mg Documented By: Admin: 10/13/24 20:58 Dose: 75 mg Documented By: Admin: 10/12/24 20:27 Dose: 75 mg Documented By: Admin: 10/11/24 20:32 Dose: 75 mg Documented By: Admin: 10/10/24 20:24 Dose: 75 mg Documented By: SARAH Diclofenac Sodium (Diclofenac Sod 1% Gel 100 Gm Tube) 4 gm EXT Q6H ESTHER; Protocol Stop: 11/13/24 10:29 Last Admin: 10/20/24 12:15 Dose: 4 gm Documented By: Admin: 10/20/24 05:14 Dose: 4 gm Documented By: Admin: 10/19/24 20:56 Dose: 4 gm Documented By: Admin: 10/19/24 16:54 Dose: 4 gm Documented By: Admin: 10/19/24 11:31 Dose: 4 gm Documented By: Admin: 10/19/24 04:30 Dose: Not Given Documented By: Admin: 10/18/24 22:10 Dose: Not Given Documented By: Admin: 10/18/24 17:38 Dose: 4 gm Documented By: Admin: 10/18/24 12:05 Dose: 4 gm Documented By: Admin: 10/18/24 04:40 Dose: Not Given Documented By: Admin: 10/17/24 21:34 Dose: Not Given Documented By: Admin: 10/17/24 16:49 Dose: 4 gm Documented By: TB Co-signed By: [facility] Admin: 10/17/24 12:10 Dose: 4 gm Documented By: CARITO Co-signed By: ALMAS Admin: 10/17/24 04:08 Dose: 4 gm Documented By: Admin: 10/16/24 22:54 Dose: Not Given Documented By: Admin: 10/16/24 16:22 Dose: 4 gm Documented By: Admin: 10/16/24 09:46 Dose: 4 gm Documented By: Admin: 10/16/24 05:18 Dose: 4 gm Documented By: Admin: 10/15/24 21:42 Dose: 4 gm Documented By: Admin: 10/15/24 16:57 Dose: 4 gm Documented By: TB Co-signed By: ALMAS Admin: 10/15/24 12:02 Dose: 4 gm Documented By: TB Co-signed By: [facility] Admin: 10/15/24 04:20 Dose: 4 gm Documented By: Admin: 10/14/24 22:05 Dose: 4 gm Documented By: Admin: 10/14/24 16:45 Dose: 4 gm Documented By: TB Co-signed By: ALMAS Admin: 10/14/24 11:03 Dose: 4 gm Documented By: CARITO Co-signed By: ALMAS Docusate Sodium (Docusate Sodium 100 Mg Cap) 100 mg PO BID ESTHER Stop: 11/11/24 20:59 Last Admin: 10/20/24 08:22 Dose: 100 mg Documented By: Admin: 10/19/24 20:56 Dose: 100 mg Documented By: Admin: 10/19/24 08:13 Dose: 100 mg Documented By: Admin: 10/19/24 01:37 Dose: Not Given Documented By: Admin: 10/18/24 08:11 Dose: 100 mg Documented By: Admin: 10/17/24 19:59 Dose: 100 mg Documented By: Admin: 10/17/24 08:12 Dose: Not Given Documented By: Admin: 10/16/24 20:58 Dose: 100 mg Documented By: Admin: 10/16/24 08:14 Dose: Not Given Documented By: Admin: 10/15/24 20:12 Dose: 100 mg Documented By: Admin: 10/15/24 08:49 Dose: Not Given Documented By: Admin: 10/14/24 22:04 Dose: 100 mg Documented By: Admin: 10/14/24 08:16 Dose: Not Given Documented By: Admin: 10/13/24 20:57 Dose: 100 mg Documented By: Admin: 10/13/24 08:51 Dose: 100 mg Documented By: Admin: 10/12/24 20:28 Dose: Not Given Documented By: FRANCHESKA Gabapentin (Gabapentin 600 Mg Tab) 600 mg PO TID ESTHER Stop: 11/09/24 15:30 Last Admin: 10/20/24 12:15 Dose: 600 mg Documented By: Admin: 10/20/24 08:22 Dose: 600 mg Documented By: Admin: 10/19/24 20:56 Dose: 600 mg Documented By: Admin: 10/19/24 12:02 Dose: 600 mg Documented By: Admin: 10/19/24 08:14 Dose: 600 mg Documented By: Admin: 10/18/24 22:08 Dose: 600 mg Documented By: Admin: 10/18/24 14:34 Dose: 600 mg Documented By: Admin: 10/18/24 08:14 Dose: 600 mg Documented By: Admin: 10/17/24 19:58 Dose: 600 mg Documented By: Admin: 10/17/24 14:08 Dose: 600 mg Documented By: TB Co-signed By: ALMAS Admin: 10/17/24 08:10 Dose: 600 mg Documented By: TB Co-signed By: ALMAS Admin: 10/16/24 20:54 Dose: 600 mg Documented By: Admin: 10/16/24 13:31 Dose: 600 mg Documented By: Admin: 10/16/24 08:15 Dose: 600 mg Documented By: Admin: 10/15/24 20:12 Dose: 600 mg Documented By: Admin: 10/15/24 14:15 Dose: 600 mg Documented By: TB Co-signed By: ALMAS Admin: 10/15/24 08:21 Dose: 600 mg Documented By: TB Co-signed By: ALMAS Admin: 10/14/24 22:04 Dose: 600 mg Documented By: Admin: 10/14/24 16:43 Dose: 600 mg Documented By: TB Co-signed By: ALMAS Admin: 10/14/24 08:15 Dose: 600 mg Documented By: TB Co-signed By: ALMAS Admin: 10/13/24 20:58 Dose: 600 mg Documented By: Admin: 10/13/24 13:56 Dose: 600 mg Documented By: Admin: 10/13/24 08:50 Dose: 600 mg Documented By: Admin: 10/12/24 20:27 Dose: 600 mg Documented By: Admin: 10/12/24 14:02 Dose: 600 mg Documented By: Admin: 10/12/24 08:08 Dose: 600 mg Documented By: Admin: 10/11/24 20:32 Dose: 600 mg Documented By: Admin: 10/11/24 13:38 Dose: 600 mg Documented By: Admin: 10/11/24 08:54 Dose: 600 mg Documented By: Admin: 10/10/24 20:24 Dose: 600 mg Documented By: Admin: 10/10/24 16:25 Dose: 600 mg Documented By: EDD Heparin Sodium (Porcine) (Heparin Sod 5,000 Unit/0.5 Ml Vial) 5,000 units SQ Q8 ESTHER Stop: 11/10/24 13:59 Last Admin: 10/20/24 12:15 Dose: 5,000 units Documented By: Admin: 10/20/24 05:14 Dose: 5,000 units Documented By: Admin: 10/19/24 20:57 Dose: 5,000 units Documented By: Admin: 10/19/24 12:02 Dose: 5,000 units Documented By: Admin: 10/19/24 06:25 Dose: 5,000 units Documented By: Admin: 10/18/24 22:09 Dose: 5,000 units Documented By: Admin: 10/18/24 14:34 Dose: 5,000 units Documented By: Admin: 10/18/24 05:52 Dose: 5,000 units Documented By: Admin: 10/17/24 21:34 Dose: 5,000 units Documented By: Admin: 10/17/24 13:59 Dose: 5,000 units Documented By: TB Co-signed By: ALMAS Admin: 10/17/24 05:51 Dose: 5,000 units Documented By: Admin: 10/16/24 22:54 Dose: Not Given Documented By: Admin: 10/16/24 13:31 Dose: 5,000 units Documented By: Admin: 10/16/24 05:31 Dose: 5,000 units Documented By: Admin: 10/15/24 21:41 Dose: 5,000 units Documented By: Admin: 10/15/24 14:15 Dose: 5,000 units Documented By: TB Co-signed By: LCS Admin: 10/15/24 06:37 Dose: 5,000 units Documented By: Admin: 10/14/24 22:05 Dose: 5,000 units Documented By: Admin: 10/13/24 13:58 Dose: 5,000 units Documented By: Admin: 10/13/24 06:25 Dose: 5,000 units Documented By: Admin: 10/12/24 20:31 Dose: 5,000 units Documented By: Admin: 10/12/24 14:02 Dose: 5,000 units Documented By: Admin: 10/12/24 05:45 Dose: 5,000 units Documented By: Admin: 10/11/24 21:09 Dose: 5,000 units Documented By: Admin: 10/11/24 13:38 Dose: 5,000 units Documented By: KTS Cefazolin Sodium (Ancef 1000mg) 1,000 mg in 7.5 mls @ 2.5 mls/min IV Q24H ESTHER Stop: 11/22/24 15:59 Last Admin: 10/19/24 16:53 Dose: 2.5 mls/min Documented By: Admin: 10/18/24 17:15 Dose: 2.5 mls/min Documented By: Admin: 10/17/24 16:49 Dose: 2.5 mls/min Documented By: CARITO Co-signed By: LCS Admin: 10/16/24 16:22 Dose: 2.5 mls/min Documented By: Admin: 10/15/24 16:57 Dose: 2.5 mls/min Documented By: TB Co-signed By: LCS Admin: 10/14/24 16:46 Dose: 2.5 mls/min Documented By: TB Co-signed By: LCS Admin: 10/13/24 15:50 Dose: 2.5 mls/min Documented By: CARITO Co-signed By: OO Admin: 10/12/24 15:20 Dose: 2.5 mls/min Documented By: Admin: 10/11/24 17:43 Dose: 2.5 mls/min Documented By: STEFFENS Insulin Aspart (Insulin Aspart Per Unit Charge) 0 units SC ACHS ESTHER Stop: 11/13/24 05:59 Last Admin: 10/20/24 12:15 Dose: 8 units Documented By: JANINE Co-signed By: SEAG Admin: 10/20/24 08:19 Dose: 7 units Documented By: JANINE Co-signed By: MES Admin: 10/19/24 20:57 Dose: 1 units Documented By: SAM Co-signed By: MARCIA Admin: 10/19/24 16:53 Dose: 7 units Documented By: JANINE Co-signed By: ARMANDO Admin: 10/19/24 12:01 Dose: 10 units Documented By: JANINE Co-signed By: K Admin: 10/19/24 08:13 Dose: 6 units Documented By: JANINE Co-signed By: SAM(2) Admin: 10/18/24 22:10 Dose: 7 units Documented By: KIKE Co-signed By: JOSE Admin: 10/18/24 17:15 Dose: 14 units Documented By: ALMAS Co-signed By: JAIME Admin: 10/18/24 12:02 Dose: 9 units Documented By: ALMAS Co-signed By: ANDRE Admin: 10/18/24 08:10 Dose: 8 units Documented By: ALMAS Co-signed By: ANDRE Admin: 10/17/24 21:33 Dose: 5 units Documented By: DAVID Co-signed By: JOSE Admin: 10/17/24 16:49 Dose: Not Given Documented By: Admin: 10/17/24 12:10 Dose: 11 units Documented By: TB Co-signed By: ALMAS Admin: 10/17/24 08:08 Dose: 9 units Documented By: TB Co-signed By: ALMAS Admin: 10/16/24 20:58 Dose: 7 units Documented By: JINNY Co-signed By: NILE Admin: 10/16/24 17:02 Dose: Not Given Documented By: Admin: 10/16/24 12:03 Dose: 12 units Documented By: ALMAS Co-signed By: JANINE Admin: 10/16/24 08:12 Dose: 10 units Documented By: ALMAS Co-signed By: NADER Admin: 10/15/24 21:41 Dose: 1 units Documented By: SANDOR Co-signed By: [id number] Admin: 10/15/24 16:56 Dose: 7 units Documented By: TB Co-signed By: ALMAS Admin: 10/15/24 12:02 Dose: 12 units Documented By: TB Co-signed By: ALMAS Admin: 10/15/24 08:21 Dose: 7 units Documented By: TB Co-signed By: ALMAS Admin: 10/14/24 22:04 Dose: 2 units Documented By: SANDOR Co-signed By: REMY Admin: 10/14/24 17:47 Dose: 6 units Documented By: TB Co-signed By: ALMAS Insulin Glargine (Lantus Per Unit Charge) 20 units SC BID ESTHER Stop: 11/09/24 20:59 Last Admin: 10/20/24 08:20 Dose: 20 units Documented By: JANINE Co-signed By: CHENCHO Admin: 10/19/24 20:57 Dose: 20 units Documented By: SAM Co-signed By: MARCIA Admin: 10/19/24 08:13 Dose: 20 units Documented By: JANINE Co-signed By: SAM(2) Lidocaine (Lidocaine 5% 1 Patch) 1 patch TD QAM [facility] Stop: 11/18/24 13:44 Last Admin: 10/20/24 08:23 Dose: 1 patch Documented By: Admin: 10/19/24 16:50 Dose: 1 patch Documented By: JANINE Miscellaneous (Remove Lidoderm Patch) 1 each N/A DAILY@2100 [facility] Stop: 11/18/24 20:59 Last Admin: 10/19/24 20:57 Dose: 1 each Documented By: SAM Ondansetron HCl (Ondansetron Inj 2 Mg/Ml 2 Ml Vial) 4 mg IV Q4H PRN PRN Reason: Nausea And Vomiting Stop: 11/09/24 15:30 Last Admin: 10/16/24 12:21 Dose: 4 mg Documented By: ALMAS Oxycodone HCl (Oxycodone Hcl Ir 5 Mg Tab (Immediate Release)) 5 mg PO Q6H PRN PRN Reason: Pain Stop: 10/27/24 13:00 Last Admin: 10/20/24 08:21 Dose: 5 mg Documented By: Admin: 10/19/24 21:59 Dose: 5 mg Documented By: Admin: 10/19/24 13:00 Dose: 5 mg Documented By: Admin: 10/19/24 01:35 Dose: 5 mg Documented By: Admin: 10/18/24 17:15 Dose: 5 mg Documented By: Admin: 10/18/24 09:36 Dose: 5 mg Documented By: Admin: 10/17/24 11:10 Dose: 5 mg Documented By: CARITO Co-signed By: ALMAS Admin: 10/17/24 04:07 Dose: 5 mg Documented By: Admin: 10/16/24 07:40 Dose: 5 mg Documented By: Admin: 10/15/24 17:03 Dose: 5 mg Documented By: CARITO Co-signed By: ALMAS Admin: 10/15/24 10:19 Dose: 5 mg Documented By: CARITO Co-signed By: ALMAS Admin: 10/15/24 04:18 Dose: 5 mg Documented By: [facility] Admin: 10/14/24 16:52 Dose: 5 mg Documented By: TB Co-signed By: ALMAS Admin: 10/14/24 10:24 Dose: 5 mg Documented By: TB Co-signed By: ALMAS Polyethylene Glycol (Polyethylene (Miralax) 17 Gm Pack) 17 gm PO DAILY ESTHER Stop: 11/16/24 13:44 Last Admin: 10/20/24 08:22 Dose: 17 gm Documented By: Admin: 10/19/24 08:13 Dose: 17 gm Documented By: Admin: 10/18/24 08:11 Dose: 17 gm Documented By: Admin: 10/17/24 13:59 Dose: 17 gm Documented By: TB Co-signed By: ALMAS Sennosides (Senna 8.6 Mg Tab) 8.6 mg PO QAM ESTHER Stop: 11/18/24 13:44 Last Admin: 10/20/24 08:22 Dose: 8.6 mg Documented By: Admin: 10/19/24 16:50 Dose: 8.6 mg Documented By: JANINE Torsemide (Torsemide 100 Mg Tab) 100 mg PO DAILY ESTHER Stop: 11/12/24 08:59 Last Admin: 10/20/24 08:22 Dose: 100 mg Documented By: Admin: 10/19/24 08:15 Dose: 100 mg Documented By: Admin: 10/18/24 08:14 Dose: 100 mg Documented By: Admin: 10/17/24 08:10 Dose: 100 mg Documented By: TB Co-signed By: ALMAS Admin: 10/16/24 08:15 Dose: 100 mg Documented By: Admin: 10/15/24 08:21 Dose: 100 mg Documented By: TB Co-signed By: ALMAS Admin: 10/14/24 08:15 Dose: 100 mg Documented By: TB Co-signed By: ALMAS Admin: 10/13/24 08:49 Dose: 100 mg Documented By: OO Vitamin D (Cholecalciferol 125 Mcg (5,000 Units) Tab) 125 mcg PO QAM ESTHER Stop: 11/14/24 13:59 Last Admin: 10/20/24 08:23 Dose: 125 mcg Documented By: Admin: 10/19/24 08:14 Dose: 125 mcg Documented By: Admin: 10/18/24 08:13 Dose: 125 mcg Documented By: Admin: 10/17/24 08:10 Dose: 125 mcg Documented By: TB Co-signed By: ALMAS Admin: 10/16/24 09:46 Dose: 125 mcg Documented By: Admin: 10/15/24 14:30 Dose: 125 mcg Documented By: TB Co-signed By: JANINE (1) Sepsis Sepsis acute organ dysfunction status: with acute organ dysfunction Sepsis type: sepsis due to unspecified organism Severe sepsis acute organ dysfunction type: encephalopathy Severe sepsis shock status: without septic shock Qualified Code(s): A41.9 - Sepsis, unspecified organism; R65.20 - Severe sepsis without septic shock; G93.41 - Metabolic encephalopathy
[2024-10-21] MEDS ORDERED: LIDOCAINE 2% 2 ML VIAL/AMP(20MG/ML) INFIL ONE (06:50)
[2024-10-21] MEDS ORDERED: ONDANSETRON INJ 2 MG/ML 2 ML VIAL ONE (06:50)
[2024-10-21] MEDS ORDERED: PROPOFOL IV EMULSION 10 MG/ML 20 ML VIAL IV ONE (06:50)
[2024-10-21] MEDS ORDERED: MIDAZOLAM HCL 1 MG/ML 2ML VIAL ONE (06:54)
[2024-10-21 07:29] LABS: Alanine Aminotransferase < 3 U/L (7-52); Albumin Globulin Ratio 0.7 (0.9-2); Alkaline Phosphatase 187 U/L (34-104); Anion Gap 12 (3-11); Bilirubin,Total 0.4 mg/dl (0.2-1.0); Blood Urea Nitrogen 101 mg/dl (6-23); Calcium 8.5 mg/dl (8.6-10.3); Carbon Dioxide 27 mmol/L (21-32); Chloride 93 mmol/L (98-107); Creatinine Clr Calc Pharmacy 11.6 ml/min; Globulin 4.1 gm/dl (2.5-4.0); Glucose 83 mg/dl (70-99(Fasting)); Potassium 4.1 mmol/L (3.5-5.1); Sodium 132 mmol/L (136-145); Total Protein 7.0 gm/dl (6.0-8.3)
--- NOTE | 2024-10-21 07:44 | History & Physical Bridge Note ---
Date of Service October 21, 2024 History & Physical Bridge Note Patient for removal of PD catheter and insertion of permcath. I have discussed the risks options and benefits of the procedure with the patient. The patient understands the risks options and benefits and agrees to the procedure. I have examined the patient, reviewed the History & Physical and in the interval since the performance of the History & Physical I have noted the following changes of clinical significance: no changes noted
--- NOTE | 2024-10-21 07:56 | Anesthesiology Consultation ---
Date of Service October 21, 2024 Assessment & Plan Chart Review Chart Review: Acceptable Risk for Surgery and Patient NOT seen in Pre Admission Testing Consults Requested none ASA ASA4 Proposed Anesthesia Anesthesia Type: General Risk / Benefits Reviewed With: PT / POA / Parent / Guardian, Accepts Plan and Informed Consent Obtained History Surgery Operation Date: 10/12/24 11:30 Proposed Procedures p Left Second and Third Toe Amputations - Veronica Webster DPM Operation Date: 10/13/24 07:30 Proposed Procedures p Transesophageal Echo w/Anesthesia - Geronimo Stanley DO Operation Date: 10/14/24 07:00 Proposed Procedures p Right Amputation 4th and 5th Fingers - Pepito Jean-Baptiste MD Operation Date: 10/21/24 08:00 Proposed Procedures p CAPD Catheter Removal - Stveen Aquino MD s Insertion Perm Catheter - Steven Aquino MD Height/Weight Height: 6 ft 1 in Weight: 105.4 kg Allergies Allergy/AdvReac Type Severity Reaction Status Date / Time daptomycin Allergy Rash Verified 10/10/24 09:48 Medications Home Medications Medication Instructions Recorded Confirmed Last Taken atenolol 50 mg tablet 50 mg PO QAM 03/07/20 10/10/24 07/19/21 atorvastatin 40 mg tablet 80 mg PO QPM 03/07/20 10/10/24 07/18/21 clopidogrel 75 mg tablet 75 mg PO HS 03/07/20 10/10/24 07/18/21 insulin aspart U-100 100 unit/mL 1 sliding scale dose subcut UD 03/07/20 10/10/24 07/19/21 12:00 (3 mL) subcutaneous pen (Novolog 10 units FlexPen U-100 Insulin aspart) insulin glargine 100 unit/mL (3 20 unit subcut BID 03/07/20 10/10/24 07/19/21 mL) subcutaneous pen (Basaglar KwikPen U-100 Insulin) aspirin 81 mg tablet,delayed 81 mg PO DAILY 11/01/21 10/10/24 Unknown release cholecalciferol (vitamin D3) 25 25 mcg PO .3X WEEK 11/01/21 10/10/24 Unknown mcg (1,000 unit) tablet (Vitamin D3) acetaminophen 500 mg tablet 500 - 1,000 mg PO UD PRN Pain 10/10/24 10/10/24 Unknown amlodipine 5 mg tablet 2.5 mg PO QAM 10/10/24 10/10/24 Unknown gabapentin 600 mg tablet 600 mg PO TID 10/10/24 10/10/24 Unknown torsemide 100 mg tablet 100 mg PO DAILY 10/10/24 10/10/24 Unknown Active Medications Generic Name Dose Route Start Last Admin Trade Name Freq PRN Reason Stop Dose Admin Acetaminophen 650 mg 10/10/24 15:31 10/17/24 04:07 Acetaminophen 325 Mg Tab PO 11/09/24 15:30 650 mg Q4H PRN Administration Moderate Pain (Scale 4, 5, 6) Amlodipine Besylate 2.5 mg 10/13/24 09:00 10/20/24 08:22 Amlodipine Besylate 5 Mg Tab PO 11/12/24 08:59 2.5 mg QAM ESTHER Administration Aspirin 81 mg 10/15/24 09:00 10/20/24 08:22 Aspirin 81 Mg Ectab PO 11/14/24 08:59 81 mg DAILY ESTHER Administration Atenolol 50 mg 10/12/24 14:00 10/20/24 08:22 Atenolol 50 Mg Tablet PO 11/11/24 13:59 50 mg QAM ESTHER Administration Atorvastatin Calcium 80 mg 10/10/24 21:00 10/20/24 21:01 Atorvastatin 40 Mg Tab PO 11/09/24 20:59 80 mg QPM ESTHER Administration Clopidogrel Bisulfate 75 mg 10/10/24 21:00 10/20/24 21:02 Clopidogrel Bisulfate 75 Mg Tab PO 11/09/24 20:59 75 mg HS ESTHER Administration Diclofenac Sodium 4 gm 10/14/24 10:30 10/21/24 04:19 Diclofenac Sod 1% Gel 100 Gm Tube EXT 11/13/24 10:29 4 gm Q6H ESTHER Administration Protocol Docusate Sodium 100 mg 10/12/24 21:00 10/20/24 21:01 Docusate Sodium 100 Mg Cap PO 11/11/24 20:59 100 mg BID ESTHER Administration Gabapentin 600 mg 10/10/24 15:31 10/20/24 21:01 Gabapentin 600 Mg Tab PO 11/09/24 15:30 600 mg TID ESTHER Administration Heparin Sodium (Porcine) 5,000 units 10/11/24 14:00 10/21/24 06:24 Heparin Sod 5,000 Unit/0.5 Ml Vial SQ 11/10/24 13:59 5,000 units Q8 ESTHER Administration Cefazolin Sodium 1,000 mg in 7.5 mls @ 2.5 mls/min 10/11/24 16:00 10/20/24 17:27 Ancef 1000mg IV 11/22/24 15:59 2.5 mls/min Q24H ESTHER Administration Insulin Aspart 0 units 10/14/24 16:30 10/21/24 07:10 Insulin Aspart Per Unit Charge SC 11/13/24 05:59 Not Given ACHS ESTHER Lidocaine 1 patch 10/19/24 13:45 10/20/24 08:23 Lidocaine 5% 1 Patch TD 11/18/24 13:44 1 patch QAM ESTHER Administration Miscellaneous 1 each 10/19/24 21:00 10/20/24 21:01 Remove Lidoderm Patch N/A 11/18/24 20:59 1 each DAILY@2100 ESTHER Administration Ondansetron HCl 4 mg 10/10/24 15:31 10/16/24 12:21 Ondansetron Inj 2 Mg/Ml 2 Ml Vial IV 11/09/24 15:30 4 mg Q4H PRN Administration Nausea And Vomiting Oxycodone HCl 5 mg 10/13/24 13:01 10/21/24 04:18 Oxycodone Hcl Ir 5 Mg Tab (Immediate Release) PO 10/27/24 13:00 5 mg Q6H PRN Administration Pain Polyethylene Glycol 17 gm 10/17/24 13:45 10/20/24 08:22 Polyethylene (Miralax) 17 Gm Pack PO 11/16/24 13:44 17 gm DAILY ESTHER Administration Sennosides 8.6 mg 10/19/24 13:45 10/20/24 08:22 Senna 8.6 Mg Tab PO 11/18/24 13:44 8.6 mg QAM ESTHER Administration Torsemide 100 mg 10/13/24 09:00 10/20/24 08:22 Torsemide 100 Mg Tab PO 11/12/24 08:59 100 mg DAILY ESTHER Administration Vitamin D 125 mcg 10/15/24 14:00 10/20/24 08:23 Cholecalciferol 125 Mcg (5,000 Units) Tab PO 11/14/24 13:59 125 mcg QAM ESTHER Administration NPO Date Last Intake of Fluids: 10/20/24 Time Last Intake of Fluids: 21:00 Last Intake of Fluids Comment: sip water at 0808 this am with meds Date Last Intake of Solids: 10/20/24 Time Last Intake of Solids: 18:00 Past Medical History Medical History Amputation of left great toe Osteomyelitis Hallux abducto valgus, bilateral Amputated great toe of right foot Diabetes mellitus with neuropathy Diabetic peripheral neuropathy Callus Exercise / Class Metabolic Activity III < 4 Walking/Shop/Light housework Past Surgical History Surgical History History of revascularization procedure of lower extremity Past Anesthesia History No Hx of Anesthesia Complications and No Family Hx of Anesthesia Complications History of PONV No Hx of PONV and No Hx of Motion Sickness Social History Smoking Status: Former smoker tobacco type: smokeless tobacco Do You Dip or Chew Tobacco: Yes Hx Alcohol Use: Yes Alcohol type: beer alcohol intake frequency: other Alcohol Intake Frequency Comment: "Used To" Hx Substance Use: No Physical Exam Vital Signs Last Vital Signs Temp 36.4 C L 10/21/24 07:38 Pulse 69 10/21/24 07:38 Resp 18 10/21/24 07:38 BP 147/75 H 10/21/24 07:38 Pulse Ox 96 10/21/24 07:38 O2 Del Method Room Air 10/21/24 07:38 O2 Flow Rate 2 10/15/24 04:40 Constitutional + obese; no acute distress ENMT Mouth: + dentition abnormality and + poor dentition Thyromental Distance: > or= 3.5 Finger Breadths Mallampati Class: II Neck normal visual inspection, trachea midline and + facial hair; neck extension not limited Respiratory normal respiratory effort Auscultation: + diminished lung sounds Cardiovascular Rate/Rhythm: regular rate and regular rhythm Heart Sounds: + murmur (@ RUSB bioprosthetic AV) Vessels: no carotid bruit Chest (Breasts) Chest: + pacemaker Musculoskeletal Spine: normal cervical ROM and no pain with cervical ROM Extremities: + amputation noted; + extremities abnormal to inspection and full ROM of extremities Neurologic moves all extremities Motor/Sensory: + sensory deficit Psychiatric Orientation: alert and oriented x 3 Testing Laboratory Results 10/19/24 06:07 10/21/24 06:45 Hemoglobin A1c 7.6 % (4.5-5.6) H 10/11/24 04:03 Urine Color Dark Yellow 10/13/24 14:22 Urine Appearance Turbid (Clear) A 10/13/24 14:22 Urine pH 5.5 (4.5-7.5) 10/13/24 14:22 Ur Specific [place] 1.020 (1.000-1.030) 10/13/24 14:22 Urine Protein 2+ (Negative) H 10/13/24 14:22 Urine Glucose (UA) Negative (Negative) 10/13/24 14:22 Urine Ketones Trace (Negative) H 10/13/24 14:22 Urine Nitrite Negative (Negative) 10/13/24 14:22 Ur Leukocyte Esterase 3+ (Negative) H 10/13/24 14:22 Urine WBC (Auto) >50 /hpf (0-5) H 10/13/24 14:22 Urine RBC (Auto) 0-2 /hpf (0-2) 10/13/24 14:22 U Hyaline Cast (Auto) 11-20 /lpf (0-2) H 10/13/24 14:22 U Epithel Cells (Auto) 3-5 /hpf (0-2) H 10/13/24 14:22 Urine Bacteria (Auto) 4+ (None Seen) H 10/13/24 14:22 10/12/24 05:37 Aerobic Blood Culture - Final Blood Staphylococcus aureus Anaerobic Blood Culture - Final 10/14/24 14:34 Gram Stain - Final Finger,Right Ring Aerobic and Anaerobic Culture - Final Staphylococcus aureus Enterobacter cloacae complex Cutibacterium (Propi) Avidum 10/14/24 05:36 Aerobic Blood Culture - Final Blood No growth in Aerobic bottle after 5 days. Anaerobic Blood Culture - Final 10/14/24 05:40 Aerobic Blood Culture - Final Blood No growth in Aerobic bottle after 5 days. Anaerobic Blood Culture - Final 10/12/24 Unknown Gram Stain - Final Toe,Left Aerobic and Anaerobic Culture - Final Staphylococcus aureus Helcococcus kunzii Anaerococcus vaginalis 10/12/24 Unknown Gram Stain - Final Foot,Left Aerobic and Anaerobic Culture - Final Low counts mixed probable skin microbiota. No further identifications or sensitivities to follow. 10/10/24 14:53 Gram Stain - Final Abdomen Aerobic and Anaerobic Culture - Final No growth 10/13/24 14:22 Urine Culture - Final Urine,Clean Catch Three types of organisms present, all low counts probable skin shazia. No further identifications or sensitivities to follow. 10/12/24 05:37 Aerobic Blood Culture - Final Blood Staphylococcus aureus Anaerobic Blood Culture - Final 10/10/24 09:57 Aerobic Blood Culture - Final Blood Staphylococcus aureus Anaerobic Blood Culture - Final Staphylococcus aureus 10/10/24 09:57 Aerobic Blood Culture - Final Blood Staphylococcus aureus Anaerobic Blood Culture - Final Staphylococcus aureus 10/21/24 10/20/24 05:49 20:09 POC Glucose 95 153 H
[2024-10-21] MEDS ORDERED: CISATRACURIUM BESYLATE IV SOLN 2 MG/ML 10 ML VIAL IV ONE (07:59)
[2024-10-21] MEDS ORDERED: ETOMIDATE 2 MG/ML 20 ML VIAL IV ONE (08:20)
[2024-10-21] MEDS ORDERED: SODIUM CHLORIDE 0.9% 1,000 ML IV PRN (08:27)
[2024-10-21] MEDS ORDERED: ceFAZolin 330 MG/ML 1 GM VIAL ONE (08:42)
[2024-10-21] MEDS ORDERED: PHENYLEPHRINE 100MCG/ML 5ML SYR ONE (08:44)
[2024-10-21] MEDS ORDERED: ePHEDrine sulfate 50 MG/5 ML SYR ONE (08:44)
[2024-10-21] MEDS ORDERED: PHENYLEPHRINE HCL 10 MG/ML VIAL ONE (09:08)
[2024-10-21] MEDS ORDERED: NEOSTIGMINE METHYLSULFATE 1 MG/ML 10ML VIAL ONE (09:19)
[2024-10-21] MEDS ORDERED: GLYCOPYRROLATE 0.2 MG/ML VIAL ONE (09:19)
--- NOTE | 2024-10-21 09:29 | Post Operative Brief Note ---
Immediate Post Op Note Date of Surgery October 21, 2024 Pre & Post Diagnosis Operation Date: 10/21/24 08:00 Pre-Op Diagnosis: Access for Dialysis Post-Op Diagnosis: Access for Dialysis I identified the patient and participated in the time-out.: Yes Procedure Operation Date: 10/21/24 08:00 Actual Procedures p Continuous Ambulatory Peritoneal Dialysis Catheter Removal(Not Applicable) - Steven Aquino MD s Insertion Perm Catheter right Internal Jugular vein, Fluoroscopy for positioning, ultrasound localization of right internal jugular vein - Steven Aquino MD Surgeon Steven Aquino MD Loan Assistant MD [place] Estimated Blood Loss 5 Findings Consistent with Post-Op Diagnosis Specimens swab culture left 3rd toe wound swab culture left foot left 2nd toe left 2nd toe proximal margin left 3rd toe left 3rd toe proximal margin Anesthesia Type General Complications none Disposition Accompanied Patient To Recovery: No Disposition: Recovery Room
[2024-10-21] MEDS: LIDOCAINE 1% LOCAL 20 ML VIAL ONE (09:38)
--- NOTE | 2024-10-21 09:42 | Operative Report ---
Post Operative Report Pre & Post Diagnosis Operation Date: 10/21/24 08:00 Pre-Op Diagnosis: end stage renal disease Post-Op Diagnosis: End stage renal disease Actual Procedures p Continuous Ambulatory Peritoneal Dialysis Catheter Removal(Not Applicable) - Steven Aquino MD s Insertion Perm Catheter right Internal Jugular vein, Fluoroscopy for positioning, ultrasound localization of right internal jugular vein - Steven Aquino MD I identified the patient and participated in the time-out.: Yes Procedure Operation Date: 10/21/24 08:00 p Continuous Ambulatory Peritoneal Dialysis Catheter Removal(Not Applicable) - Steven Aquino MD s Insertion Perm Catheter right Internal Jugular vein, Fluoroscopy for posit ioning, ultrasound localization of right internal jugular vein - Steven Aquino MD Surgeon Steven Aquino MD Mat Linker MD [place] Estimated Blood Loss 5 Findings See Below Site of peritoneal dialysis catheter with fascia well approximated after removal of the catheter. Site was hemostatic before primary closure. Permcath was in appropriate position after placement with no kinks visualized on completion fluoroscopy. Both ports aspirated and flushed easily. Specimens None Anesthesia Type General Complications None Indications 64 yo m with history of PAD, ESRD on PD, HTN, CAD, pacemaker, AV replacement, DMII, CVA, neuropathy, admitted with bacteremia/sepsis who was consulted to our service for removal of CAPD catheter and permcath insertion. Patient has had amputation of right fingers and toes and will require snf rehab. He had prior arteriovenous fistula created in the past, but it failed. Rehab is not capable of doing peritoneal dialysis and pt will need hemodialysis access. After discussion of risks and benefits, patient provided informed consent for removal of the peritoneal dialysis catheter and insertion of permcath. Description of Procedure The patient was brought into the operating room and placed in supine position. General anesthesia was achieved and the patient was intubated by the anesthesia team. Patient received preoperative antibiotics. The abdomen was prepped with betadine including the catheter, and draped in the usual sterile fashion. The correct patient's name, date of and procedure to be performed were identified and all were in agreement. A #15 blade was used to make a 4cm infraumbilical longitudinal incision over the site of the catheter. Dissection was carried through the skin and subcutaneous tissue using a combination of electrocautery and sharp dissection until the catheter was identified. The catheter was then retracted up with a hemostat and circumferential dissection continued around the catheter. Gentle traction of the catheter was performed to achieve dissection of the surrounding tissue around the entire circumference of the catheter. The cuff embedded in the rectus sheath was visualized and dissection continued circumferentially until the cuff was able to be easily removed. The peritoneal dialysis catheter was removed from the peritoneal cavity. The fascial defect was then closed using 2-0 Prolene. We then continued our dissection to dissect free the cuff embedded in the subcutaneous tissue with gentle outwards traction. With the cuff held in traction, dissection was continued until it was freed from the surrounding tissue. Once the cuff was free from the surrounding tissue, the peritoneal dialysis catheter was transected distal to the cuff. The remaining portion of the peritoneal dialysis catheter was removed from the other side of the abdominal wall. The incisions were irrigated with antibiotic solution. Both incisions were hemostatic. The subcutaneous tissue overlying the fascia was closed with 3-0 Vicryl, followed by subcuticular running 4-0 Vicryl. Dermabond was used as a sterile dressing over this incision. The subcutaneous incision was left open and a sterile dressing placed over it. This concluded the initial portion of our procedure. All counts were correct at the end of the case. We then took down our sterile drapes. The right side of the neck and chest wall were prepped and draped in a sterile manner. We again performed a timeout confirming the patient's name, date of and procedure to be performed. Ultrasound was then used to locate the right internal jugular vein. The vein compressed easily, had no filling defects, and was patent. The vein was then punctured under direct ultrasound imaging. A guidewire was then passed centrally under fluoroscopic imaging. A stab wound was then made in the anterior chest wall and a 19 cm permcath was passed from the stab wound on the chest wall to the puncture site on the neck. The puncture site was then dilated until the 14Fr peel away sheath was inserted. The permcath was then inserted through the sheath to a central position in the distal superior vena cava. The peel away sheath was then removed. The catheter was then sutured in place using nylon sutures. The puncture was then closed using a 4-0 Vicryl subcuticular suture. Dermabond was used for a dressing on the puncture site. Both ports aspirated and flushed easily and were then packed with heparin. A sterile dressing was applied to the catheter. The patient left the angio suite in good condition and was taken to recovery in stable condition. Fluoroscopy time was 1.5 min and radiation dose was 11.[address] Aquino was present and participated in all critical aspects of both parts of the procedure. I attest to the content of the Intraoperative Record and any orders documented therein. Any exceptions are noted below.
--- NOTE | 2024-10-21 10:32 | Anesthesiology Progress Note ---
Date of Service October 21, 2024 Anesthesia Post Procedure Vital Signs Vital Signs: Temp Pulse Pulse Pulse Resp BP Pulse Ox 10/21/24 10:25 36.4 C L 78 18 118/60 96 10/21/24 10:15 79 13 120/76 96 10/21/24 10:05 77 16 115/58 L 97 10/21/24 09:55 71 15 100 10/21/24 09:46 36.0 C L 82 18 75 L 10/21/24 07:38 36.4 C L 69 18 147/75 H 96 10/21/24 07:00 67 10/21/24 05:45 36.9 C 68 16 123/71 96 10/20/24 22:08 36.7 C 72 16 125/74 95 10/20/24 21:46 73 10/20/24 19:11 36.7 C 79 21 153/77 H 96 10/20/24 16:02 36.5 C 69 18 140/71 95 10/20/24 11:42 36.4 C L 69 16 118/86 97 O2 Del Method O2 Flow Rate 10/21/24 10:25 Oxymask 3 10/21/24 10:15 Oxymask 5 10/21/24 10:05 Oxymask 10 10/21/24 09:55 Non-rebreather 15 10/21/24 09:46 Oxymask 15 10/21/24 07:38 Room Air 10/21/24 07:00 10/21/24 05:45 Room Air 10/20/24 22:08 Room Air 10/20/24 21:46 10/20/24 19:11 Room Air 10/20/24 16:02 Room Air 10/20/24 11:42 Room Air Pain Intensity Bilateral Lower Back: Pain Intensity: 0 Transfer of Care Handoff Completed per policy Notes Mental Status: alert / awake / arousable Patient Amnestic to Procedure: Yes Nausea / Vomiting: adequately controlled Pain: adequately controlled Airway Patency, RR, SpO2: stable & adequate BP & HR: stable & adequate Hydration State: stable & adequate Anesthetic Complications: no major complications apparent
[2024-10-21] MEDS: ERYTHROMYCIN OP OINT 5 MG/GM 3.5 GM TUBE OP SCH (11:13)
[2024-10-21] MEDS: LANTUS PER UNIT CHARGE SC SCH ×2 (12:24→20:58)
[2024-10-21] MEDS: EPOETIN ALFA 20,000 UNITS/ML VIAL IV ONE (13:35)
--- NOTE | 2024-10-21 14:24 | Dialysis Progress Note ---
Date of Service October 21, 2024 Assessment & Plan (1) ESRD on peritoneal dialysis: Plan: patient does not have much residual renal function left as he makes only about 500ml of urine per day, has made as much as 1.2L on one day at least this admission he has been doing peritoneal dialysis through a nocturnal cycler at home for the last few months. Previously was on hemodialysis and desires to change back to HD for foreseeable future not only for rehab but b/c of carepartner fatigue/health issues ESRD secondary to diabetes hypertension and chronic diffuse vascular disease. fluid status acceptable labs appear acceptable though reemerging hyponatremia 132 today and BUN up to 100 PD cath removed and C VAC placed on October 21 Undergoing first dialysis treatment with hemotoday and awaiting on rehab dispo No further bleeding episodes but still with diminished visual acuity right eye. Primary service aware will evaluate patient immediately. We can stop the treatment early if necessary. - Hoping for transfer to rehab this weekend ->needs IV abx for 6 weeks. (2) Sepsis: Plan: PD fluid negative for peritonitis. No need of IP abx . ID eval done. MSSA bacteremia. ANI--negative. getting Some Amputations. Blood C/s from 10/14 so far negative. 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 for Cefazolin for 6 weeks. >>NEEDS bm daily to prevent translocational peritonitis - primary service aware Admission and Anticipated Discharge Date Admission Date: October 10, 2024 Subjective Seen on dialysis and feeling a bit rough after tunneled dialysis catheter placement this morning and PD catheter removal. Some issues with his right eye vision after procedure also had a bloody nose with sats dropping to the 70s in the PACU and spat up several clots. Currently still with abnormal right eye vision and some worsening of chronic back pain, some abd discomfort at site cath removal. Review of Systems 2 Review of Systems: All systems reviewed & are unremarkable except as noted in Subjective Physical Exam 2 Constitutional: well developed and well nourished Eyes: EOM intact bilaterally ENMT: Mouth: + dry oral mucous membranes Respiratory: normal respiratory effort Auscultation: + diminished lung sounds Cardiovascular: Rate/Rhythm: regular rate and regular rhythm Extremities: n o edema Gastrointestinal (Abdomen): Inspection/Auscultation: normal bowel sounds and + abdominal surgical drain present (PD cath) Percussion/Palpation: abdomen soft; abdomen nontender Musculoskeletal: Extremities: strength 5/5 throughout Skin: no rashes, warm and dry Results & Data Vital Signs (Past 12 Hours) Vital Signs Temp Pulse Pulse Pulse Resp BP BP 10/21/24 13:30 85 98/64 L 10/21/24 13:00 62 117/87 10/21/24 12:30 78 93/60 L 10/21/24 12:00 81 99/63 L 10/21/24 11:32 76 106/63 10/21/24 11:28 36.4 C L 81 10/21/24 11:05 80 12 120/61 10/21/24 10:50 81 13 115/81 10/21/24 10:35 79 13 122/63 10/21/24 10:25 36.4 C L 78 18 118/60 10/21/24 10:15 79 13 120/76 10/21/24 10:05 77 16 115/58 L 10/21/24 09:55 71 15 10/21/24 09:46 36.0 C L 82 18 10/21/24 07:38 36.4 C L 69 18 147/75 H 10/21/24 07:00 67 10/21/24 05:45 36.9 C 68 16 123/71 Pulse Ox O2 Del Method O2 Flow Rate 10/21/24 13:30 10/21/24 13:00 10/21/24 12:30 10/21/24 12:00 10/21/24 11:32 10/21/24 11:28 10/21/24 11:05 92 Oxymask 3 10/21/24 10:50 94 Oxymask 3 10/21/24 10:35 95 Oxymask 3 10/21/24 10:25 96 Oxymask 3 10/21/24 10:15 96 Oxymask 5 10/21/24 10:05 97 Oxymask 10 10/21/24 09:55 100 Non-rebreather 15 10/21/24 09:46 75 L Oxymask 15 10/21/24 07:38 96 Room Air 10/21/24 07:00 10/21/24 05:45 96 Room Air Laboratory Results 10/19/24 06:07 10/21/24 06:45 (2) Sepsis Sepsis acute organ dysfunction status: with acute organ dysfunction Sepsis type: sepsis due to unspecified organism Severe sepsis acute organ dysfunction type: encephalopathy Severe sepsis shock status: without septic shock Qualified Code(s): A41.9 - Sepsis, unspecified organism; R65.20 - Severe sepsis without septic shock; G93.41 - Metabolic encephalopathy
[2024-10-21] MEDS ORDERED: PHARMACIST DISCHARGE MED REC CONSULT PRN (14:58)
--- NOTE | 2024-10-21 14:58 | Communication Note ---
Notified by nephrology in regards to patients change in vision in right eye post procedure documented by anesthesia. On my exam, patient with retained vision and periphery and centrally in both eyes, with blurry vision mild and diffuse throughout right eye. Tolerating dialysis well. Full neuro exam performed, NIHSS of 0, no hemianopia at time of exam. Would not be TPA candidate given minor change and recent procedures. Given acute change post procedure and high risk for strokes, will do CT head and neck with neurology consult after dialysis. Date of Service: October 21, 2024
--- NOTE | 2024-10-21 15:07 | Pharmacy Report ---
Pharmacy Glycemic Short Note 2 - Date of Service October 21, 2024 - Glycemic Short BSG Results (Last 24 hours): 10/20/24 10/20/24 10/21/24 16:24 20:09 05:49 Glucose POC Glucose 175 H 153 H 95 10/21/24 10/21/24 10/21/24 06:45 09:56 12:08 Glucose 83 POC Glucose 103 H 123 H OUTPATIENT ANTIDIABETIC REGIMEN: * NovoLog 5 units SQ QAM, 10 units @ noon, 10 units in afternoon, CF 20 >140mg/dL * Lantus 20 untis SQ BID * HbA1c is unreliable in ESRD patients d/t interactions between the A1c analyzing technique and high levels of urea in ESRD, reduced RBC life span, iron deficiency anemia, and EPO administration. HbA1c > 7.5% in ESRD patient may overestimate the extent of hyperglycemia in ESRD patients. ASSESSMENT: 10/21: * BSGs [phone]/dL the last 24h. Received 40units of basal and 27 units of bolus insulin yesterday. * NPO this AM for HD cath placement and remains NPO this afternoon. AM Lantus held by nursing this morning given fasting BSG in 90s and prolonged NPO status. * Resume Lantus 20 units tonight and then reassess basal in AM. No change to Novolog. 10/20: * Patient received 64 units of insulin yesterday, 40 of which were basal. BSGs have been well controlled over the past 24 hours: [phone] mg/dL * Fasting BSG remains adequate at 115 mg/dL. * Patient is ordered and tolerating a diet. * Plan to transition to HD tomorrow from PD. 10/18 * Patient has received 25 units BID per scale x last 3 days- fasting within range, will schedule * BSGs slightly lower than goal with lunch/dinner yesterday but not hypoglycemic. Patient has refused with insulin with dinner leading to high HS blood sugar. Will loosen carb ratio slightly to try and maintain BSG 110-140 mg/dL 10/14 * NPO for OR this AM * Fasting BSG elevated this AM. Increased lantus sliding scale. * Tightened CF and CR 2nd elevated post-prandial glucose. 10/13 * Diet resumed this AM after ANI * Fasting BSG elevated. Will increase Lantus * One post-prandial BSG elevated yesterday after tightening Novolog parameters. Will not make further adjustments for now, but may consider tightening Novolog parameters if post-prandial BSG's remain elevated. 10/12 * Fasting BSG 183 mg/dL this morning, received 40 units of lantus yesterday. Patient NPO this morning for amputation, plan for ANI tomorrow under anesthesia * Reduced basal AM dose to 15 units, scale for PM for a total ~40-25% reduction today. * Novolog parameters were tightened given increases in prandial BSGs yesterday- monitor 10/11 * Stressors stable. Confirmed MSSA bacteremia * BSG's trending down, although a little slowly. * Will maintain Lantus. Home dose at upper end of range but will titrate down if/when BSG's decrease into goal range to avoid further reduction in BSG * Will maintain Novolog as-is, unless see trend up in BSG's at lunch today. If trends up, will tighten CF and/or CR slightly 10/10 * Otto is a 64 year old male admitted with sepsis and a history of type 2 diabetes mellitus complicated by ESRD on PD. Pharmacy has been consulted to assist with glycemic management while inpatient. * BSG upon admission elevated, missed morning insulin per H&P, likely cause of hyperglycemia. Stat correctional and basal insulin ordered. * Will initiate basal scale up to a weight based stress of 2 and Lantus at about a weight based stress of 2. PLAN FOR INPATIENT GLYCEMIC CONTROL: * Hold outpatient oral diabetes medications * Basal insulin * Lantus AM dose held, 20 units HS * Bolus insulin * NovoLog per scale ACHS or Q6hrs while NPO * Goal Range: Low 110 mg/dL - High 140 mg/dL * Correction Factor: 20 mg/dL/unit * Nutritional / Prandial insulin per carb ratio of 1 unit per 7 grams CHO consumed
[2024-10-21] MEDS: OPTIRAY 320 125ml IV ONE (15:43)
--- NOTE | 2024-10-21 15:48 | Hospitalist Progress Note ---
Date of Service October 21, 2024 Assessment & Plan (1) Sepsis: (2) Diabetes mellitus: (3) Diabetic peripheral neuropathy associated with type 2 diabetes mellitus: (4) Peripheral vascular disease: (5) ESRD on peritoneal dialysis: (6) HTN (hypertension): (7) S/P cardiac pacemaker procedure: (8) History of diabetic ulcer of foot: Plan This is a 64-year-old male with PMHx of end-stage renal disease on peritoneal dialysis, DM type II, CAD, HTN history of complete heart block, s/p pacemaker insertion, aortic valve, bicuspid, history of PE, peripheral vascular disease, s/p left great toe amputation,chronic left 2nd and 3rd toe wound, left well- healed heel ulcer, dry gangrene of right hand, who presents to the hospital with approximately 24 hours of increased confusion, lethargy, fever, chills/rigors 2/2 sepsis. Severe Sepsis, resolved MSSA bacteremia Left 2nd/3rd Digit Foot Osteomyelitis s/p amputation Right 4th/5th Digit Osteomyelitis s/p amputation -Foot MRI: OM of left 2nd and 3rd toes. -MRI L spine (done for concerns of reported back pain): no concerns for OM. -Admitting (10/10) Bl Cx: 4 out of 4 bottles growing MSSA -Repeat Bl cx 10/12: 1 of 4 bottle growing S. Aureus [Of note, pt underwent L toe amputation later morning of 10/12]. -Left foot operative Cx 10/12: MSSA, also growing Helococcus and Anaerococcus. -MRI Rt finger (4th and 5th) 10/13: osteomyelitis at the fourth and fifth distal phalanges. -Right ring finger operative Cx 10/14: staph and Enterobacter and cutibacterium growing, follow final results. Plan: -ID shaunna, recommends iv cefazolin daily. for 6 weeks from the date of last neg blood culture. ~Discussed with ID again 10/19 evening regarding additional growth in operative cultures, no new antibiotic coverage needed, continue with prior antibiotic plan. -Due to patient's increased need pt's states she won't be able to care at home ~Plan for peritoneal dialysis catheter removal and TDC placement prior to discharge -done today ~Discussed with vascular surgery 10/18, no need to hold DAPT, plan for TDC placement 10/21. -patient and would like [facility] at this time, medically stable for discharge pending disposition, peer to peer called and denied, patient appeal ongoing Blurry Vision -noted post operatively -no vision deficits Plan: -neurology consulted, appreciate recs -MR brain and CT imaging with stroke workup pending -not TPA candidate given recent procedures, complext medical hx, very small deficit, NIHSS of 0 Back Pain -likely 2/2 deconditioning. vitamin D level low Plan: -increased vit D3 to 125 mcg daily -OOB few times a day and PT daily as able -c/w pain Mx, follow. c/w bowel regimen while on opiates.Repeat Vit D level in 2-3 months. -pain management consult, appreciate recs Elevated high sensitive troponin Likely demand ischemia in setting of sepsis -High sensitive troponin elevated to 249 on admission; -Echocardiogram obtained; reviewed ESRD on peritoneal dialysis - -Nephro on board for dialysis assistance DM II -SSI HTN -c/w home atenolol, torsemide and amlodipine. 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 04/2014 Carotid duplex showed < 50% carotid stenosis bilaterally (report scanned in [facility]). -06/2023 carotid duplex demonstrates less than 50% carotid stenosis b/l ICAs. Hx PE in 2010, treated with Coumadin for ~3 months. -No longer on anticoagulation I spent a total of 55 minutes in direct patient care, including quki-be-nloe time with the patient and/or family, reviewing medical records, ordering and reviewing diagnostic tests, and coordinating care with other healthcare providers. This time includes: history taking, physical examination, medical decision making, counseling, ECG interpretation, imaging interpretation, lab interpretation, orders, and education, excluding time spent in the performance of separately billed services. Admission and Anticipated Discharge Date Admission Date: October 10, 2024 Subjective Patient seen and examined at bedside. Patient doing ok today. Seen in dialysis, see note in chart, noted blurriness of vision in right eye without vision deficits post procedure. Tolerated procedure well Review of Systems Review of Systems: CONSTITUTIONAL: Patient denies fevers, chills, sweats and weight changes. EYES: blurry vision EARS, NOSE, AND THROAT: No difficulties with hearing. No symptoms of rhinitis or sore throat. CARDIOVASCULAR: Patient denies chest pains, palpitations, orthopnea and paroxysmal nocturnal dyspnea. RESPIRATORY: No dyspnea on exertion, no wheezing or cough. GI: No nausea, vomiting, diarrhea, constipation, abdominal pain, hematochezia or melena. : No urinary hesitancy or dribbling. No nocturia or urinary frequency. No abnormal urethral discharge. MUSCULOSKELETAL: back pain NEUROLOGIC: No chronic headaches, no seizures. Patient denies numbness, tingling or weakness. PSYCHIATRIC: Patient denies problems with mood disturbance. No problems with anxiety. ENDOCRINE: No excessive urination or excessive thirst. DERMATOLOGIC: Patient denies any rashes or skin changes. Physical Exam Physical Exam: Gen: A&O 3 NAD, sarcopenia noted HEENT: NCAT, EOMI, not icteric. External ears normal. No rhinorrhea. Moist mucous membranes. Neck: Supple, full range of motion, no observable masses, No meningeal sign. Lungs: No Respiratory distress. CV: RRR, no edema. Abdomen: Soft, nondistended, No rebound tenderness. MSK: clean wounds on right fingers s/p amputation, foot wounds noted Skin: No rashes, petechiae, lesions. Normal color per patient. Neuro: Normal Gait, Grossly intact. Psych: Appropriate for situation. Results & Data Results & Data Vital Signs (Past 12 Hours) Vital Signs Temp Pulse Pulse Pulse Resp BP BP 10/21/24 15:30 78 99/52 L 10/21/24 15:00 85 99/54 L 10/21/24 14:30 80 100/62 10/21/24 14:00 79 93/62 L 10/21/24 13:30 85 98/64 L 10/21/24 13:00 62 117/87 10/21/24 12:30 78 93/60 L 10/21/24 12:00 81 99/63 L 10/21/24 11:32 76 106/63 10/21/24 11:28 36.4 C L 81 10/21/24 11:05 80 12 120/61 10/21/24 10:50 81 13 115/81 10/21/24 10:35 79 13 122/63 10/21/24 10:25 36.4 C L 78 18 118/60 10/21/24 10:15 79 13 120/76 10/21/24 10:05 77 16 115/58 L 10/21/24 09:55 71 15 10/21/24 09:46 36.0 C L 82 18 10/21/24 07:38 36.4 C L 69 18 147/75 H 10/21/24 07:00 67 10/21/24 05:45 36.9 C 68 16 123/71 Pulse Ox O2 Del Method O2 Flow Rate 10/21/24 15:30 10/21/24 15:00 10/21/24 14:30 10/21/24 14:00 10/21/24 13:30 10/21/24 13:00 10/21/24 12:30 10/21/24 12:00 10/21/24 11:32 10/21/24 11:28 10/21/24 11:05 92 Oxymask 3 10/21/24 10:50 94 Oxymask 3 10/21/24 10:35 95 Oxymask 3 10/21/24 10:25 96 Oxymask 3 10/21/24 10:15 96 Oxymask 5 10/21/24 10:05 97 Oxymask 10 10/21/24 09:55 100 Non-rebreather 15 10/21/24 09:46 75 L Oxymask 15 10/21/24 07:38 96 Room Air 10/21/24 07:00 10/21/24 05:45 96 Room Air Laboratory Results -personally reviewed, Na at baseline, creatinine elevated in ESRD, elevated AG in ESRD Medications Administered Acetaminophen (Acetaminophen 325 Mg Tab) 650 mg PO Q4H PRN PRN Reason: Moderate Pain (Scale 4, 5, 6) Stop: 11/09/24 15:30 Last Admin: 10/17/24 04:07 Dose: 650 mg Documented By: Admin: 10/10/24 20:32 Dose: 650 mg Documented By: SARAH Amlodipine Besylate (Amlodipine Besylate 5 Mg Tab) [facility] Stop: 11/12/24 08:59 Last Admin: 10/21/24 12:01 Dose: Not Given Documented By: Admin: 10/20/24 08:22 Dose: 2.5 mg Documented By: Admin: 10/19/24 08:15 Dose: 2.5 mg Documented By: Admin: 10/18/24 08:12 Dose: 2.5 mg Documented By: Admin: 10/17/24 08:11 Dose: 2.5 mg Documented By: TB Co-signed By: LCS Admin: 10/16/24 08:14 Dose: 2.5 mg Documented By: Admin: 10/15/24 08:20 Dose: 2.5 mg Documented By: TB Co-signed By: LCS Admin: 10/14/24 08:16 Dose: 2.5 mg Documented By: TB Co-signed By: LCS Admin: 10/13/24 08:50 Dose: 2.5 mg Documented By: OO Aspirin (Aspirin 81 Mg Ectab) 81 mg PO DAILY ESTHER Stop: 11/14/24 08:59 Last Admin: 10/21/24 12:00 Dose: 81 mg Documented By: Admin: 10/20/24 08:22 Dose: 81 mg Documented By: Admin: 10/19/24 08:14 Dose: 81 mg Documented By: Admin: 10/18/24 08:12 Dose: 81 mg Documented By: Admin: 10/17/24 08:10 Dose: 81 mg Documented By: TB Co-signed By: LCS Admin: 10/16/24 08:14 Dose: 81 mg Documented By: Admin: 10/15/24 09:17 Dose: 81 mg Documented By: TB Co-signed By: AAL Atenolol (Atenolol 50 Mg Tablet) 50 mg PO QAM ESTHER Stop: 11/11/24 13:59 Last Admin: 10/21/24 12:01 Dose: Not Given Documented By: Admin: 10/20/24 08:22 Dose: 50 mg Documented By: Admin: 10/19/24 08:14 Dose: 50 mg Documented By: Admin: 10/18/24 08:13 Dose: 50 mg Documented By: Admin: 10/17/24 08:11 Dose: 50 mg Documented By: TB Co-signed By: LCS Admin: 10/16/24 08:14 Dose: 50 mg Documented By: Admin: 10/15/24 08:20 Dose: 50 mg Documented By: TB Co-signed By: LCS Admin: 10/14/24 08:15 Dose: 50 mg Documented By: CARITO Co-signed By: ALMAS Admin: 10/13/24 10:05 Dose: 50 mg Documented By: Admin: 10/12/24 15:20 Dose: 50 mg Documented By: ADILENE Atorvastatin Calcium (Atorvastatin 40 Mg Tab) 80 mg PO QPM ESTHER Stop: 11/09/24 20:59 Last Admin: 10/20/24 21:01 Dose: 80 mg Documented By: Admin: 10/19/24 20:55 Dose: 80 mg Documented By: Admin: 10/18/24 22:09 Dose: 80 mg Documented By: Admin: 10/17/24 19:59 Dose: 80 mg Documented By: Admin: 10/16/24 20:53 Dose: 80 mg Documented By: Admin: 10/15/24 20:12 Dose: 80 mg Documented By: Admin: 10/14/24 22:04 Dose: 80 mg Documented By: Admin: 10/13/24 20:58 Dose: 80 mg Documented By: Admin: 10/12/24 20:27 Dose: 80 mg Documented By: Admin: 10/11/24 20:31 Dose: 80 mg Documented By: Admin: 10/10/24 20:25 Dose: 80 mg Documented By: SARAH Clopidogrel Bisulfate (Clopidogrel Bisulfate 75 Mg Tab) 75 mg PO HS ESTHER Stop: 11/09/24 20:59 Last Admin: 10/20/24 21:02 Dose: 75 mg Documented By: Admin: 10/19/24 20:55 Dose: 75 mg Documented By: Admin: 10/18/24 22:08 Dose: 75 mg Documented By: Admin: 10/17/24 19:58 Dose: 75 mg Documented By: Admin: 10/16/24 20:54 Dose: 75 mg Documented By: Admin: 10/15/24 20:12 Dose: 75 mg Documented By: Admin: 10/14/24 22:04 Dose: 75 mg Documented By: Admin: 10/13/24 20:58 Dose: 75 mg Documented By: Admin: 10/12/24 20:27 Dose: 75 mg Documented By: Admin: 10/11/24 20:32 Dose: 75 mg Documented By: Admin: 10/10/24 20:24 Dose: 75 mg Documented By: SARAH Diclofenac Sodium (Diclofenac Sod 1% Gel 100 Gm Tube) 4 gm EXT Q6H ESTHER; Protocol Stop: 11/13/24 10:29 Last Admin: 10/21/24 12:24 Dose: Not Given Documented By: Admin: 10/21/24 04:19 Dose: 4 gm Documented By: Admin: 10/20/24 23:12 Dose: 4 gm Documented By: Admin: 10/20/24 17:27 Dose: 4 gm Documented By: Admin: 10/20/24 12:15 Dose: 4 gm Documented By: Admin: 10/20/24 05:14 Dose: 4 gm Documented By: Admin: 10/19/24 20:56 Dose: 4 gm Documented By: Admin: 10/19/24 16:54 Dose: 4 gm Documented By: Admin: 10/19/24 11:31 Dose: 4 gm Documented By: Admin: 10/19/24 04:30 Dose: Not Given Documented By: Admin: 10/18/24 22:10 Dose: Not Given Documented By: Admin: 10/18/24 17:38 Dose: 4 gm Documented By: Admin: 10/18/24 12:05 Dose: 4 gm Documented By: Admin: 10/18/24 04:40 Dose: Not Given Documented By: Admin: 10/17/24 21:34 Dose: Not Given Documented By: Admin: 10/17/24 16:49 Dose: 4 gm Documented By: TB Co-signed By: LCS Admin: 10/17/24 12:10 Dose: 4 gm Documented By: TB Co-signed By: LCS Admin: 10/17/24 04:08 Dose: 4 gm Documented By: Admin: 10/16/24 22:54 Dose: Not Given Documented By: Admin: 10/16/24 16:22 Dose: 4 gm Documented By: Admin: 10/16/24 09:46 Dose: 4 gm Documented By: Admin: 10/16/24 05:18 Dose: 4 gm Documented By: Admin: 10/15/24 21:42 Dose: 4 gm Documented By: Admin: 10/15/24 16:57 Dose: 4 gm Documented By: CARITO Co-signed By: ALMAS Admin: 10/15/24 12:02 Dose: 4 gm Documented By: CARITO Co-signed By: ALMAS Admin: 10/15/24 04:20 Dose: 4 gm Documented By: Admin: 10/14/24 22:05 Dose: 4 gm Documented By: Admin: 10/14/24 16:45 Dose: 4 gm Documented By: CRAITO Co-signed By: ALMAS Admin: 10/14/24 11:03 Dose: 4 gm Documented By: CARITO Co-signed By: ALMAS Docusate Sodium (Docusate Sodium 100 Mg Cap) 100 mg PO BID ESTHER Stop: 11/11/24 20:59 Last Admin: 10/21/24 12:01 Dose: Not Given Documented By: Admin: 10/20/24 21:01 Dose: 100 mg Documented By: Admin: 10/20/24 08:22 Dose: 100 mg Documented By: Admin: 10/19/24 20:56 Dose: 100 mg Documented By: Admin: 10/19/24 08:13 Dose: 100 mg Documented By: Admin: 10/19/24 01:37 Dose: Not Given Documented By: Admin: 10/18/24 08:11 Dose: 100 mg Documented By: Admin: 10/17/24 19:59 Dose: 100 mg Documented By: Admin: 10/17/24 08:12 Dose: Not Given Documented By: Admin: 10/16/24 20:58 Dose: 100 mg Documented By: Admin: 10/16/24 08:14 Dose: Not Given Documented By: Admin: 10/15/24 20:12 Dose: 100 mg Documented By: Admin: 10/15/24 08:49 Dose: Not Given Documented By: Admin: 10/14/24 22:04 Dose: 100 mg Documented By: Admin: 10/14/24 08:16 Dose: Not Given Documented By: Admin: 10/13/24 20:57 Dose: 100 mg Documented By: Admin: 10/13/24 08:51 Dose: 100 mg Documented By: Admin: 10/12/24 20:28 Dose: Not Given Documented By: JESSEEP Erythromycin (Erythromycin Op Oint 5 Mg/Gm 3.5 Gm Tube) 1 appln OP TID ESTHER Stop: 10/31/24 13:59 Last Admin: 10/21/24 11:13 Dose: 1 appln Documented By: SED Gabapentin (Gabapentin 600 Mg Tab) 600 mg PO TID ESTHER Stop: 11/09/24 15:30 Last Admin: 10/21/24 12:00 Dose: 600 mg Documented By: Admin: 10/20/24 21:01 Dose: 600 mg Documented By: Admin: 10/20/24 12:15 Dose: 600 mg Documented By: Admin: 10/20/24 08:22 Dose: 600 mg Documented By: Admin: 10/19/24 20:56 Dose: 600 mg Documented By: Admin: 10/19/24 12:02 Dose: 600 mg Documented By: Admin: 10/19/24 08:14 Dose: 600 mg Documented By: Admin: 10/18/24 22:08 Dose: 600 mg Documented By: Admin: 10/18/24 14:34 Dose: 600 mg Documented By: Admin: 10/18/24 08:14 Dose: 600 mg Documented By: Admin: 10/17/24 19:58 Dose: 600 mg Documented By: Admin: 10/17/24 14:08 Dose: 600 mg Documented By: TB Co-signed By: ALMAS Admin: 10/17/24 08:10 Dose: 600 mg Documented By: TB Co-signed By: ALMAS Admin: 10/16/24 20:54 Dose: 600 mg Documented By: Admin: 10/16/24 13:31 Dose: 600 mg Documented By: Admin: 10/16/24 08:15 Dose: 600 mg Documented By: Admin: 10/15/24 20:12 Dose: 600 mg Documented By: Admin: 10/15/24 14:15 Dose: 600 mg Documented By: TB Co-signed By: ALMAS Admin: 10/15/24 08:21 Dose: 600 mg Documented By: TB Co-signed By: ALMAS Admin: 10/14/24 22:04 Dose: 600 mg Documented By: Admin: 10/14/24 16:43 Dose: 600 mg Documented By: TB Co-signed By: ALMAS Admin: 10/14/24 08:15 Dose: 600 mg Documented By: TB Co-signed By: ALMAS Admin: 10/13/24 20:58 Dose: 600 mg Documented By: Admin: 10/13/24 13:56 Dose: 600 mg Documented By: Admin: 10/13/24 08:50 Dose: 600 mg Documented By: Admin: 10/12/24 20:27 Dose: 600 mg Documented By: Admin: 10/12/24 14:02 Dose: 600 mg Documented By: Admin: 10/12/24 08:08 Dose: 600 mg Documented By: Admin: 10/11/24 20:32 Dose: 600 mg Documented By: Admin: 10/11/24 13:38 Dose: 600 mg Documented By: Admin: 10/11/24 08:54 Dose: 600 mg Documented By: Admin: 10/10/24 20:24 Dose: 600 mg Documented By: Admin: 10/10/24 16:25 Dose: 600 mg Documented By: EDD Heparin Sodium (Porcine) (Heparin Sod 5,000 Unit/0.5 Ml Vial) 5,000 units SQ Q8 ESTHER Stop: 11/10/24 13:59 Last Admin: 10/21/24 06:24 Dose: 5,000 units Documented By: Admin: 10/20/24 21:01 Dose: 5,000 units Documented By: Admin: 10/20/24 12:15 Dose: 5,000 units Documented By: Admin: 10/20/24 05:14 Dose: 5,000 units Documented By: Admin: 10/19/24 20:57 Dose: 5,000 units Documented By: Admin: 10/19/24 12:02 Dose: 5,000 units Documented By: Admin: 10/19/24 06:25 Dose: 5,000 units Documented By: Admin: 10/18/24 22:09 Dose: 5,000 units Documented By: Admin: 10/18/24 14:34 Dose: 5,000 units Documented By: Admin: 10/18/24 05:52 Dose: 5,000 units Documented By: Admin: 10/17/24 21:34 Dose: 5,000 units Documented By: Admin: 10/17/24 13:59 Dose: 5,000 units Documented By: TB Co-signed By: ALMAS Admin: 10/17/24 05:51 Dose: 5,000 units Documented By: Admin: 10/16/24 22:54 Dose: Not Given Documented By: Admin: 10/16/24 13:31 Dose: 5,000 units Documented By: Admin: 10/16/24 05:31 Dose: 5,000 units Documented By: Admin: 10/15/24 21:41 Dose: 5,000 units Documented By: Admin: 10/15/24 14:15 Dose: 5,000 units Documented By: TB Co-signed By: LCS Admin: 10/15/24 06:37 Dose: 5,000 units Documented By: Admin: 10/14/24 22:05 Dose: 5,000 units Documented By: Admin: 10/13/24 13:58 Dose: 5,000 units Documented By: Admin: 10/13/24 06:25 Dose: 5,000 units Documented By: Admin: 10/12/24 20:31 Dose: 5,000 units Documented By: Admin: 10/12/24 14:02 Dose: 5,000 units Documented By: Admin: 10/12/24 05:45 Dose: 5,000 units Documented By: Admin: 10/11/24 21:09 Dose: 5,000 units Documented By: Admin: 10/11/24 13:38 Dose: 5,000 units Documented By: KTS Cefazolin Sodium (Ancef 1000mg) 1,000 mg in 7.5 mls @ 2.5 mls/min IV Q24H ESTHER Stop: 11/22/24 15:59 Last Admin: 10/20/24 17:27 Dose: 2.5 mls/min Documented By: Admin: 10/19/24 16:53 Dose: 2.5 mls/min Documented By: Admin: 10/18/24 17:15 Dose: 2.5 mls/min Documented By: Admin: 10/17/24 16:49 Dose: 2.5 mls/min Documented By: TB Co-signed By: LCS Admin: 10/16/24 16:22 Dose: 2.5 mls/min Documented By: Admin: 10/15/24 16:57 Dose: 2.5 mls/min Documented By: TB Co-signed By: ALMAS Admin: 10/14/24 16:46 Dose: 2.5 mls/min Documented By: CARITO Co-signed By: ALMAS Admin: 10/13/24 15:50 Dose: 2.5 mls/min Documented By: TB Co-signed By: SALLY Admin: 10/12/24 15:20 Dose: 2.5 mls/min Documented By: Admin: 10/11/24 17:43 Dose: 2.5 mls/min Documented By: KTS Insulin Aspart (Insulin Aspart Per Unit Charge) 0 units SC ACHS ESTHER Stop: 11/13/24 05:59 Last Admin: 10/21/24 13:44 Dose: Not Given Documented By: Admin: 10/21/24 07:10 Dose: Not Given Documented By: Admin: 10/20/24 21:02 Dose: 1 units Documented By: SANDOR Co-signed By: BRITTNEY Admin: 10/20/24 17:27 Dose: 11 units Documented By: JANINE Co-signed By: SALLY Admin: 10/20/24 12:15 Dose: 8 units Documented By: JANINE Co-signed By: ALFRED Admin: 10/20/24 08:19 Dose: 7 units Documented By: JANINE Co-signed By: CHENCHO Admin: 10/19/24 20:57 Dose: 1 units Documented By: SAM Co-signed By: MARCIA Admin: 10/19/24 16:53 Dose: 7 units Documented By: JANINE Co-signed By: ARMANDO Admin: 10/19/24 12:01 Dose: 10 units Documented By: JANINE Co-signed By: COLE Admin: 10/19/24 08:13 Dose: 6 units Documented By: JANINE Co-signed By: SAM(2) Admin: 10/18/24 22:10 Dose: 7 units Documented By: KIKE Co-signed By: JOSE Admin: 10/18/24 17:15 Dose: 14 units Documented By: ALMAS Co-signed By: JAIME Admin: 10/18/24 12:02 Dose: 9 units Documented By: ALMAS Co-signed By: ANDRE Admin: 10/18/24 08:10 Dose: 8 units Documented By: ALMAS Co-signed By: ANDRE Admin: 10/17/24 21:33 Dose: 5 units Documented By: DAVID Co-signed By: JOSE Admin: 10/17/24 16:49 Dose: Not Given Documented By: Admin: 10/17/24 12:10 Dose: 11 units Documented By: TB Co-signed By: ALMAS Admin: 10/17/24 08:08 Dose: 9 units Documented By: TB Co-signed By: ALMAS Admin: 10/16/24 20:58 Dose: 7 units Documented By: ELOINAP Co-signed By: OS Admin: 10/16/24 17:02 Dose: Not Given Documented By: Admin: 10/16/24 12:03 Dose: 12 units Documented By: ALMAS Co-signed By: JANINE Admin: 10/16/24 08:12 Dose: 10 units Documented By: ALMAS Co-signed By: NADER Admin: 10/15/24 21:41 Dose: 1 units Documented By: SANDOR Co-signed By: [id number] Admin: 10/15/24 16:56 Dose: 7 units Documented By: CARITO Co-signed By: ALMAS Admin: 10/15/24 12:02 Dose: 12 units Documented By: TB Co-signed By: ALMAS Admin: 10/15/24 08:21 Dose: 7 units Documented By: CARITO Co-signed By: ALMAS Admin: 10/14/24 22:04 Dose: 2 units Documented By: SANDOR Co-signed By: REMY Admin: 10/14/24 17:47 Dose: 6 units Documented By: CARITO Co-signed By: ALMAS Lidocaine (Lidocaine 5% 1 Patch) 1 patch TD QAM [facility] Stop: 11/18/24 13:44 Last Admin: 10/21/24 12:25 Dose: Not Given Documented By: Admin: 10/20/24 08:23 Dose: 1 patch Documented By: Admin: 10/19/24 16:50 Dose: 1 patch Documented By: JANINE Miscellaneous (Remove Lidoderm Patch) 1 each N/A DAILY@2100 [facility] Stop: 11/18/24 20:59 Last Admin: 10/20/24 21:01 Dose: 1 each Documented By: Admin: 10/19/24 20:57 Dose: 1 each Documented By: SAM Ondansetron HCl (Ondansetron Inj 2 Mg/Ml 2 Ml Vial) 4 mg IV Q4H PRN PRN Reason: Nausea And Vomiting Stop: 11/09/24 15:30 Last Admin: 10/16/24 12:21 Dose: 4 mg Documented By: ALMAS Oxycodone HCl (Oxycodone Hcl Ir 5 Mg Tab (Immediate Release)) 5 mg PO Q6H PRN PRN Reason: Pain Stop: 10/27/24 13:00 Last Admin: 10/21/24 04:18 Dose: 5 mg Documented By: Admin: 10/20/24 21:01 Dose: 5 mg Documented By: Admin: 10/20/24 08:21 Dose: 5 mg Documented By: Admin: 10/19/24 21:59 Dose: 5 mg Documented By: Admin: 10/19/24 13:00 Dose: 5 mg Documented By: Admin: 10/19/24 01:35 Dose: 5 mg Documented By: Admin: 10/18/24 17:15 Dose: 5 mg Documented By: Admin: 10/18/24 09:36 Dose: 5 mg Documented By: Admin: 10/17/24 11:10 Dose: 5 mg Documented By: CARITO Co-signed By: ALMAS Admin: 10/17/24 04:07 Dose: 5 mg Documented By: Admin: 10/16/24 07:40 Dose: 5 mg Documented By: Admin: 10/15/24 17:03 Dose: 5 mg Documented By: CARITO Co-signed By: ALMAS Admin: 10/15/24 10:19 Dose: 5 mg Documented By: CARITO Co-signed By: ALMAS Admin: 10/15/24 04:18 Dose: 5 mg Documented By: Admin: 10/14/24 16:52 Dose: 5 mg Documented By: CARITO Co-signed By: ALMAS Admin: 10/14/24 10:24 Dose: 5 mg Documented By: CARITO Co-signed By: ALMAS Polyethylene Glycol (Polyethylene (Miralax) 17 Gm Pack) 17 gm PO DAILY ESTHER Stop: 11/16/24 13:44 Last Admin: 10/21/24 12:24 Dose: Not Given Documented By: Admin: 10/20/24 08:22 Dose: 17 gm Documented By: Admin: 10/19/24 08:13 Dose: 17 gm Documented By: Admin: 10/18/24 08:11 Dose: 17 gm Documented By: Admin: 10/17/24 13:59 Dose: 17 gm Documented By: TB Co-signed By: ALMAS Sennosides (Senna 8.6 Mg Tab) 8.6 mg PO QAM ESTHER Stop: 11/18/24 13:44 Last Admin: 10/21/24 12:24 Dose: Not Given Documented By: Admin: 10/20/24 08:22 Dose: 8.6 mg Documented By: Admin: 10/19/24 16:50 Dose: 8.6 mg Documented By: CA Torsemide (Torsemide 100 Mg Tab) 100 mg PO DAILY ESTHER Stop: 11/12/24 08:59 Last Admin: 10/21/24 12:02 Dose: Not Given Documented By: Admin: 10/20/24 08:22 Dose: 100 mg Documented By: Admin: 10/19/24 08:15 Dose: 100 mg Documented By: Admin: 10/18/24 08:14 Dose: 100 mg Documented By: Admin: 10/17/24 08:10 Dose: 100 mg Documented By: TB Co-signed By: ALMAS Admin: 10/16/24 08:15 Dose: 100 mg Documented By: Admin: 10/15/24 08:21 Dose: 100 mg Documented By: TB Co-signed By: LCS Admin: 10/14/24 08:15 Dose: 100 mg Documented By: TB Co-signed By: ALMAS Admin: 10/13/24 08:49 Dose: 100 mg Documented By: SALLY Vitamin D (Cholecalciferol 125 Mcg (5,000 Units) Tab) 125 mcg PO QAM ESTHER Stop: 11/14/24 13:59 Last Admin: 10/21/24 12:01 Dose: 125 mcg Documented By: Admin: 10/20/24 08:23 Dose: 125 mcg Documented By: Admin: 10/19/24 08:14 Dose: 125 mcg Documented By: Admin: 10/18/24 08:13 Dose: 125 mcg Documented By: Admin: 10/17/24 08:10 Dose: 125 mcg Documented By: TB Co-signed By: ALMAS Admin: 10/16/24 09:46 Dose: 125 mcg Documented By: Admin: 10/15/24 14:30 Dose: 125 mcg Documented By: TB Co-signed By: JANINE (1) Sepsis Sepsis acute organ dysfunction status: with acute organ dysfunction Sepsis type: sepsis due to unspecified organism Severe sepsis acute organ dysfunction type: encephalopathy Severe sepsis shock status: without septic shock Qualified Code(s): A41.9 - Sepsis, unspecified organism; R65.20 - Severe sepsis without septic shock; G93.41 - Metabolic encephalopathy
[2024-10-21] MEDS: HEPARIN SOD (PORCINE) 5,000 UNITS/ML VIAL ONE (16:18)
--- NOTE | 2024-10-21 16:18 | CT Scan Report ---
Clinical history: Blurry vision Technique: Axial computed tomography images were obtained of the brain before and after the administration of intravenous contrast according to the CT angiogram protocol Comparison is made to the prior head CT dated 11/01/2021 Findings: There is cerebral atrophy, within expected limits for the patient's age. Areas of decreased attenuation are seen within the periventricular white matter, likely representing chronic small vessel ischemic disease. 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 There is a small old infarct of the left thalamus. There is no definite sign of acute infarction. No intracranial hemorrhage is evident. No definite mass lesion is seen. There is no midline shift or other form of herniation. No hydrocephalus is seen. No fracture is identified. There is some sphenoid sinus fluid. The mastoid air cells appear clear. There is calcified plaque in the cavernous segments of the distal internal carotid arteries bilaterally, without significant stenosis No definite stenosis or aneurysm is seen of the anterior, middle, or posterior cerebral artery circulations. There are approximately 50% stenosis of the distal vertebral arteries bilaterally. The basilar artery appears normal Impression: 1. Mild stenoses of the distal vertebral arteries bilaterally 2. Cerebral atrophy, chronic small vessel ischemic disease, and old infarcts 3. Sphenoid sinusitis Electronically signed by Mak Park 10-21-2024 4:16 PM
--- NOTE | 2024-10-21 16:23 | CT Scan Report ---
Clinical history: Blurry vision Technique: Axial computed tomography images were obtained of the neck after the administration of intravenous contrast according to the CT angiogram protocol Findings: There is mild plaque in the right common carotid artery, without significant stenosis. There is a mild stenosis of the distal left common carotid artery. There is a mild stenosis of the proximal right internal carotid artery with approximately 40% diameter narrowing. There is a mild stenosis of the left carotid bulb and proximal left internal carotid artery with up to 40% diameter narrowing There are moderate severity stenoses of the proximal external carotid arteries bilaterally There is a severe stenosis of the origin of the left vertebral artery. There is a mild stenosis of the origin of the right vertebral artery. There are mild stenoses of the distal vertebral arteries bilaterally There is multilevel degenerative disc disease and osteoarthritis of the cervical spine. Impression: 1. Mild stenosis of the left carotid bulb and proximal left ICA 2. Mild stenosis of the proximal right ICA 3. Mild stenosis of the distal left CCA 4. Moderate severity stenoses of the proximal ECA bilaterally 5. Severe stenosis of the origin of the left vertebral artery 6. Mild stenosis at the origin of the right vertebral artery 7. Mild stenoses of the vertebral arteries bilaterally ACT 112: Positive. There are findings on this exam that require communication between the performing entity and the patient following Patient Test Result Information Act ([place] ACT 112) guidelines. Electronically signed by Mak Park 10-21-2024 4:22 PM
[2024-10-22 07:38] LABS: Alanine Aminotransferase < 3 U/L (7-52); Albumin Globulin Ratio 0.7 (0.9-2); Alkaline Phosphatase 178 U/L (34-104); Anion Gap 10 (3-11); Bilirubin,Total 0.5 mg/dl (0.2-1.0); Blood Urea Nitrogen 54 mg/dl (6-23); Calcium 8.2 mg/dl (8.6-10.3); Carbon Dioxide 27 mmol/L (21-32); Chloride 92 mmol/L (98-107); Creatinine Clr Calc Pharmacy 16.6 ml/min; Globulin 3.9 gm/dl (2.5-4.0); Glucose 88 mg/dl (70-99(Fasting)); Potassium 4.2 mmol/L (3.5-5.1); Sodium 129 mmol/L (136-145); Total Protein 6.8 gm/dl (6.0-8.3)
--- NOTE | 2024-10-22 12:23 | Hospitalist Progress Note ---
Date of Service October 22, 2024 Assessment & Plan (1) Sepsis: (2) Diabetes mellitus: (3) Diabetic peripheral neuropathy associated with type 2 diabetes mellitus: (4) Peripheral vascular disease: (5) ESRD on peritoneal dialysis: (6) HTN (hypertension): (7) S/P cardiac pacemaker procedure: (8) History of diabetic ulcer of foot: Plan This is a 64-year-old male with PMHx of end-stage renal disease on peritoneal dialysis, DM type II, CAD, HTN history of complete heart block, s/p pacemaker insertion, aortic valve, bicuspid, history of PE, peripheral vascular disease, s/p left great toe amputation,chronic left 2nd and 3rd toe wound, left well- healed heel ulcer, dry gangrene of right hand, who presents to the hospital with approximately 24 hours of increased confusion, lethargy, fever, chills/rigors 2/2 sepsis. Severe Sepsis, resolved MSSA bacteremia Left 2nd/3rd Digit Foot Osteomyelitis s/p amputation Right 4th/5th Digit Osteomyelitis s/p amputation -Foot MRI: OM of left 2nd and 3rd toes. -MRI L spine (done for concerns of reported back pain): no concerns for OM. -Admitting (10/10) Bl Cx: 4 out of 4 bottles growing MSSA -Repeat Bl cx 10/12: 1 of 4 bottle growing S. Aureus [Of note, pt underwent L toe amputation later morning of 10/12]. -Left foot operative Cx 10/12: MSSA, also growing Helococcus and Anaerococcus. -MRI Rt finger (4th and 5th) 10/13: osteomyelitis at the fourth and fifth distal phalanges. -Right ring finger operative Cx 10/14: staph and Enterobacter and cutibacterium growing, follow final results. Plan: -ID shaunna, recommends iv cefazolin daily. for 6 weeks from the date of last neg blood culture. ~Discussed with ID again 10/19 evening regarding additional growth in operative cultures, no new antibiotic coverage needed, continue with prior antibiotic plan. -Due to patient's increased need pt's states she won't be able to care at home ~Plan for peritoneal dialysis catheter removal and TDC placement prior to discharge -done today -patient and would like [facility] at this time, medically stable for discharge pending disposition, peer to peer called and denied, patient appeal ongoing -now on HD Blurry Vision -noted post operatively -no vision deficits -CT imaging with substantial vascular disease but no clear new infarct or hemorrhage Plan: -neurology consulted, appreciate recs -pending MRI of brain Back Pain -likely 2/2 deconditioning. vitamin D level low Plan: -increased vit D3 to 125 mcg daily -OOB few times a day and PT daily as able -c/w pain Mx, follow. c/w bowel regimen while on opiates.Repeat Vit D level in 2-3 months. -pain management consult, appreciate recs Elevated high sensitive troponin Likely demand ischemia in setting of sepsis -High sensitive troponin elevated to 249 on admission; -Echocardiogram obtained; reviewed ESRD on peritoneal dialysis - -Nephro on board for dialysis assistance DM II -SSI HTN -c/w home atenolol, torsemide and amlodipine. 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 04/2014 Carotid duplex showed < 50% carotid stenosis bilaterally (report scanned in epic). -06/2023 carotid duplex demonstrates less than 50% carotid stenosis b/l ICAs. Hx PE in 2010, treated with Coumadin for ~3 months. -No longer on anticoagulation I spent a total of 40 minutes in direct patient care, including [id number] time with the patient and/or family, reviewing medical records, ordering and reviewing diagnostic tests, and coordinating care with other healthcare providers. This time includes: history taking, physical examination, medical decision making, counseling, ECG interpretation, imaging interpretation, lab int erpretation, orders, and education, excluding time spent in the performance of separately billed services. Admission and Anticipated Discharge Date Admission Date: October 10, 2024 Subjective Patient seen and examined at bedside. Patient doing well today. Patient is not able to be taken care of at home with current level of needs and is awaiting appeal of inpatient rehab. Review of Systems Review of Systems: CONSTITUTIONAL: Patient denies fevers, chills, sweats and weight changes. EYES: blurry vision improved from yesterday EARS, NOSE, AND THROAT: No difficulties with hearing. No symptoms of rhinitis or sore throat. CARDIOVASCULAR: Patient denies chest pains, palpitations, orthopnea and paroxysmal nocturnal dyspnea. RESPIRATORY: No dyspnea on exertion, no wheezing or cough. GI: No nausea, vomiting, diarrhea, constipation, abdominal pain, hematochezia or melena. : No urinary hesitancy or dribbling. No nocturia or urinary frequency. No abnormal urethral discharge. MUSCULOSKELETAL: back pain NEUROLOGIC: No chronic headaches, no seizures. Patient denies numbness, tingling or weakness. PSYCHIATRIC: Patient denies problems with mood disturbance. No problems with anxiety. ENDOCRINE: No excessive urination or excessive thirst. DERMATOLOGIC: Patient denies any rashes or skin changes. Physical Exam Physical Exam: Gen: A&O 3 NAD, sarcopenia noted HEENT: NCAT, EOMI, not icteric. External ears normal. No rhinorrhea. Moist mucous membranes. Neck: Supple, full range of motion, no observable masses, No meningeal sign. Lungs: No Respiratory distress. CV: RRR, no edema. Abdomen: Soft, nondistended, No rebound tenderness. MSK: clean wounds on right fingers s/p amputation, foot wounds noted Skin: No rashes, petechiae, lesions. Normal color per patient. Neuro: Normal Gait, Grossly intact. Psych: Appropriate for situation. Results & Data Results & Data Vital Signs (Past 12 Hours) Vital Signs Temp Pulse Pulse Resp BP Pulse Ox O2 Del Method 10/22/24 11:46 36.7 C 64 18 150/82 H 94 Room Air 10/22/24 08:00 36.7 C 61 18 131/65 96 Room Air 10/22/24 04:40 36.5 C 76 18 124/64 92 Room Air 10/22/24 00:40 36.4 C L 83 123/65 93 Room Air Laboratory Results -personally reviewed, Na of 129 is around, downtrending alk phos, creatinine downtrending in setting HD use Medications Administered Acetaminophen (Acetaminophen 325 Mg Tab) 650 mg PO Q4H PRN PRN Reason: Moderate Pain (Scale 4, 5, 6) Stop: 11/09/24 15:30 Last Admin: 10/17/24 04:07 Dose: 650 mg Documented By: Admin: 10/10/24 20:32 Dose: 650 mg Documented By: SARAH Amlodipine Besylate (Amlodipine Besylate 5 Mg Tab) 2.5 mg PO QAM [facility] Stop: 11/12/24 08:59 Last Admin: 10/22/24 09:14 Dose: 2.5 mg Documented By: [facility] Admin: 10/21/24 12:01 Dose: Not Given Documented By: Admin: 10/20/24 08:22 Dose: 2.5 mg Documented By: Admin: 10/19/24 08:15 Dose: 2.5 mg Documented By: Admin: 10/18/24 08:12 Dose: 2.5 mg Documented By: Admin: 10/17/24 08:11 Dose: 2.5 mg Documented By: TB Co-signed By: [facility] Admin: 10/16/24 08:14 Dose: 2.5 mg Documented By: [facility] Admin: 10/15/24 08:20 Dose: 2.5 mg Documented By: TB Co-signed By: ALMAS Admin: 10/14/24 08:16 Dose: 2.5 mg Documented By: TB Co-signed By: ALMAS Admin: 10/13/24 08:50 Dose: 2.5 mg Documented By: OO Aspirin (Aspirin 81 Mg Ectab) 81 mg PO DAILY [facility] Stop: 11/14/24 08:59 Last Admin: 10/22/24 09:15 Dose: 81 mg Documented By: [facility] Admin: 10/21/24 12:00 Dose: 81 mg Documented By: Admin: 10/20/24 08:22 Dose: 81 mg Documented By: Admin: 10/19/24 08:14 Dose: 81 mg Documented By: Admin: 10/18/24 08:12 Dose: 81 mg Documented By: Admin: 10/17/24 08:10 Dose: 81 mg Documented By: TB Co-signed By: LCS Admin: 10/16/24 08:14 Dose: 81 mg Documented By: [facility] Admin: 10/15/24 09:17 Dose: 81 mg Documented By: TB Co-signed By: AAL Atenolol (Atenolol 50 Mg Tablet) 50 mg PO QAM [facility] Stop: 11/11/24 13:59 Last Admin: 10/22/24 09:15 Dose: 50 mg Documented By: [facility] Admin: 10/21/24 12:01 Dose: Not Given Documented By: Admin: 10/20/24 08:22 Dose: 50 mg Documented By: Admin: 10/19/24 08:14 Dose: 50 mg Documented By: Admin: 10/18/24 08:13 Dose: 50 mg Documented By: Admin: 10/17/24 08:11 Dose: 50 mg Documented By: TB Co-signed By: LCS Admin: 10/16/24 08:14 Dose: 50 mg Documented By: Admin: 10/15/24 08:20 Dose: 50 mg Documented By: TB Co-signed By: LCS Admin: 10/14/24 08:15 Dose: 50 mg Documented By: TB Co-signed By: LCS Admin: 10/13/24 10:05 Dose: 50 mg Documented By: Admin: 10/12/24 15:20 Dose: 50 mg Documented By: ADILENE Atorvastatin Calcium (Atorvastatin 40 Mg Tab) 80 mg PO QPM [facility] Stop: 11/09/24 20:59 Last Admin: 10/21/24 20:59 Dose: 80 mg Documented By: Admin: 10/20/24 21:01 Dose: 80 mg Documented By: Admin: 10/19/24 20:55 Dose: 80 mg Documented By: Admin: 10/18/24 22:09 Dose: 80 mg Documented By: Admin: 10/17/24 19:59 Dose: 80 mg Documented By: Admin: 10/16/24 20:53 Dose: 80 mg Documented By: Admin: 10/15/24 20:12 Dose: 80 mg Documented By: Admin: 10/14/24 22:04 Dose: 80 mg Documented By: Admin: 10/13/24 20:58 Dose: 80 mg Documented By: Admin: 10/12/24 20:27 Dose: 80 mg Documented By: Admin: 10/11/24 20:31 Dose: 80 mg Documented By: Admin: 10/10/24 20:25 Dose: 80 mg Documented By: SARAH Clopidogrel Bisulfate (Clopidogrel Bisulfate 75 Mg Tab) 75 mg PO HS [facility] Stop: 11/09/24 20:59 Last Admin: 10/21/24 20:59 Dose: 75 mg Documented By: Admin: 10/20/24 21:02 Dose: 75 mg Documented By: Admin: 10/19/24 20:55 Dose: 75 mg Documented By: Admin: 10/18/24 22:08 Dose: 75 mg Documented By: Admin: 10/17/24 19:58 Dose: 75 mg Documented By: Admin: 10/16/24 20:54 Dose: 75 mg Documented By: Admin: 10/15/24 20:12 Dose: 75 mg Documented By: Admin: 10/14/24 22:04 Dose: 75 mg Documented By: Admin: 10/13/24 20:58 Dose: 75 mg Documented By: Admin: 10/12/24 20:27 Dose: 75 mg Documented By: Admin: 10/11/24 20:32 Dose: 75 mg Documented By: Admin: 10/10/24 20:24 Dose: 75 mg Documented By: SARAH Diclofenac Sodium (Diclofenac Sod 1% Gel 100 Gm Tube) 4 gm EXT Q6H [facility]; Protocol Stop: 11/13/24 10:29 Last Admin: 10/22/24 12:05 Dose: Not Given Documented By: Admin: 10/22/24 05:18 Dose: 4 gm Documented By: Admin: 10/21/24 21:31 Dose: 4 gm Documented By: Admin: 10/21/24 17:16 Dose: 4 gm Documented By: Admin: 10/21/24 12:24 Dose: Not Given Documented By: Admin: 10/21/24 04:19 Dose: 4 gm Documented By: Admin: 10/20/24 23:12 Dose: 4 gm Documented By: Admin: 10/20/24 17:27 Dose: 4 gm Documented By: Admin: 10/20/24 12:15 Dose: 4 gm Documented By: Admin: 10/20/24 05:14 Dose: 4 gm Documented By: Admin: 10/19/24 20:56 Dose: 4 gm Documented By: Admin: 10/19/24 16:54 Dose: 4 gm Documented By: Admin: 10/19/24 11:31 Dose: 4 gm Documented By: Admin: 10/19/24 04:30 Dose: Not Given Documented By: Admin: 10/18/24 22:10 Dose: Not Given Documented By: Admin: 10/18/24 17:38 Dose: 4 gm Documented By: Admin: 10/18/24 12:05 Dose: 4 gm Documented By: Admin: 10/18/24 04:40 Dose: Not Given Documented By: Admin: 10/17/24 21:34 Dose: Not Given Documented By: Admin: 10/17/24 16:49 Dose: 4 gm Documented By: TB Co-signed By: ALMAS Admin: 10/17/24 12:10 Dose: 4 gm Documented By: TB Co-signed By: ALMAS Admin: 10/17/24 04:08 Dose: 4 gm Documented By: Admin: 10/16/24 22:54 Dose: Not Given Documented By: Admin: 10/16/24 16:22 Dose: 4 gm Documented By: Admin: 10/16/24 09:46 Dose: 4 gm Documented By: Admin: 10/16/24 05:18 Dose: 4 gm Documented By: Admin: 10/15/24 21:42 Dose: 4 gm Documented By: Admin: 10/15/24 16:57 Dose: 4 gm Documented By: TB Co-signed By: ALMAS Admin: 10/15/24 12:02 Dose: 4 gm Documented By: TB Co-signed By: ALMAS Admin: 10/15/24 04:20 Dose: 4 gm Documented By: Admin: 10/14/24 22:05 Dose: 4 gm Documented By: Admin: 10/14/24 16:45 Dose: 4 gm Documented By: TB Co-signed By: ALMAS Admin: 10/14/24 11:03 Dose: 4 gm Documented By: TB Co-signed By: ALMAS Docusate Sodium (Docusate Sodium 100 Mg Cap) 100 mg PO BID [facility] Stop: 11/11/24 20:59 Last Admin: 10/22/24 09:15 Dose: Not Given Documented By: Admin: 10/21/24 20:59 Dose: 100 mg Documented By: Admin: 10/21/24 12:01 Dose: Not Given Documented By: Admin: 10/20/24 21:01 Dose: 100 mg Documented By: Admin: 10/20/24 08:22 Dose: 100 mg Documented By: Admin: 10/19/24 20:56 Dose: 100 mg Documented By: Admin: 10/19/24 08:13 Dose: 100 mg Documented By: Admin: 10/19/24 01:37 Dose: Not Given Documented By: Admin: 10/18/24 08:11 Dose: 100 mg Documented By: Admin: 10/17/24 19:59 Dose: 100 mg Documented By: Admin: 10/17/24 08:12 Dose: Not Given Documented By: Admin: 10/16/24 20:58 Dose: 100 mg Documented By: Admin: 10/16/24 08:14 Dose: Not Given Documented By: Admin: 10/15/24 20:12 Dose: 100 mg Documented By: Admin: 10/15/24 08:49 Dose: Not Given Documented By: Admin: 10/14/24 22:04 Dose: 100 mg Documented By: Admin: 10/14/24 08:16 Dose: Not Given Documented By: Admin: 10/13/24 20:57 Dose: 100 mg Documented By: Admin: 10/13/24 08:51 Dose: 100 mg Documented By: Admin: 10/12/24 20:28 Dose: Not Given Documented By: AKP Erythromycin (Erythromycin Op Oint 5 Mg/Gm 3.5 Gm Tube) 1 appln OP TID [facility] Stop: 10/31/24 13:59 Last Admin: 10/22/24 09:16 Dose: 1 appln Documented By: Admin: 10/21/24 21:29 Dose: 1 appln Documented By: Admin: 10/21/24 17:16 Dose: Not Given Documented By: Admin: 10/21/24 11:13 Dose: 1 appln Documented By: SED Gabapentin (Gabapentin 600 Mg Tab) 600 mg PO TID [facility] Stop: 11/09/24 15:30 Last Admin: 10/22/24 09:17 Dose: 600 mg Documented By: Admin: 10/21/24 20:59 Dose: 600 mg Documented By: Admin: 10/21/24 16:19 Dose: Not Given Documented By: Admin: 10/21/24 12:00 Dose: 600 mg Documented By: Admin: 10/20/24 21:01 Dose: 600 mg Documented By: Admin: 10/20/24 12:15 Dose: 600 mg Documented By: Admin: 10/20/24 08:22 Dose: 600 mg Documented By: Admin: 10/19/24 20:56 Dose: 600 mg Documented By: Admin: 10/19/24 12:02 Dose: 600 mg Documented By: Admin: 10/19/24 08:14 Dose: 600 mg Documented By: Admin: 10/18/24 22:08 Dose: 600 mg Documented By: Admin: 10/18/24 14:34 Dose: 600 mg Documented By: Admin: 10/18/24 08:14 Dose: 600 mg Documented By: Admin: 10/17/24 19:58 Dose: 600 mg Documented By: Admin: 10/17/24 14:08 Dose: 600 mg Documented By: TB Co-signed By: LCS Admin: 10/17/24 08:10 Dose: 600 mg Documented By: TB Co-signed By: LCS Admin: 10/16/24 20:54 Dose: 600 mg Documented By: Admin: 10/16/24 13:31 Dose: 600 mg Documented By: Admin: 10/16/24 08:15 Dose: 600 mg Documented By: Admin: 10/15/24 20:12 Dose: 600 mg Documented By: Admin: 10/15/24 14:15 Dose: 600 mg Documented By: TB Co-signed By: LCS Admin: 10/15/24 08:21 Dose: 600 mg Documented By: TB Co-signed By: LCS Admin: 10/14/24 22:04 Dose: 600 mg Documented By: Admin: 10/14/24 16:43 Dose: 600 mg Documented By: TB Co-signed By: LCS Admin: 10/14/24 08:15 Dose: 600 mg Documented By: TB Co-signed By: LCS Admin: 10/13/24 20:58 Dose: 600 mg Documented By: Admin: 10/13/24 13:56 Dose: 600 mg Documented By: Admin: 10/13/24 08:50 Dose: 600 mg Documented By: Admin: 10/12/24 20:27 Dose: 600 mg Documented By: Admin: 10/12/24 14:02 Dose: 600 mg Documented By: Admin: 10/12/24 08:08 Dose: 600 mg Documented By: Admin: 10/11/24 20:32 Dose: 600 mg Documented By: Admin: 10/11/24 13:38 Dose: 600 mg Documented By: Admin: 10/11/24 08:54 Dose: 600 mg Documented By: Admin: 10/10/24 20:24 Dose: 600 mg Documented By: Admin: 10/10/24 16:25 Dose: 600 mg Documented By: EDD Heparin Sodium (Porcine) (Heparin Sod 5,000 Unit/0.5 Ml Vial) 5,000 units SQ Q8 [facility] Stop: 11/10/24 13:59 Last Admin: 10/22/24 06:22 Dose: 5,000 units Documented By: Admin: 10/21/24 21:00 Dose: 5,000 units Documented By: Admin: 10/21/24 16:20 Dose: Not Given Documented By: Admin: 10/21/24 06:24 Dose: 5,000 units Documented By: Admin: 10/20/24 21:01 Dose: 5,000 units Documented By: Admin: 10/20/24 12:15 Dose: 5,000 units Documented By: Admin: 10/20/24 05:14 Dose: 5,000 units Documented By: Admin: 10/19/24 20:57 Dose: 5,000 units Documented By: Admin: 10/19/24 12:02 Dose: 5,000 units Documented By: Admin: 10/19/24 06:25 Dose: 5,000 units Documented By: Admin: 10/18/24 22:09 Dose: 5,000 units Documented By: Admin: 10/18/24 14:34 Dose: 5,000 units Documented By: Admin: 10/18/24 05:52 Dose: 5,000 units Documented By: Admin: 10/17/24 21:34 Dose: 5,000 units Documented By: Admin: 10/17/24 13:59 Dose: 5,000 units Documented By: TB Co-signed By: ALMAS Admin: 10/17/24 05:51 Dose: 5,000 units Documented By: Admin: 10/16/24 22:54 Dose: Not Given Documented By: Admin: 10/16/24 13:31 Dose: 5,000 units Documented By: Admin: 10/16/24 05:31 Dose: 5,000 units Documented By: Admin: 10/15/24 21:41 Dose: 5,000 units Documented By: Admin: 10/15/24 14:15 Dose: 5,000 units Documented By: TB Co-signed By: LCS Admin: 10/15/24 06:37 Dose: 5,000 units Documented By: Admin: 10/14/24 22:05 Dose: 5,000 units Documented By: Admin: 10/13/24 13:58 Dose: 5,000 units Documented By: Admin: 10/13/24 06:25 Dose: 5,000 units Documented By: Admin: 10/12/24 20:31 Dose: 5,000 units Documented By: Admin: 10/12/24 14:02 Dose: 5,000 units Documented By: Admin: 10/12/24 05:45 Dose: 5,000 units Documented By: Admin: 10/11/24 21:09 Dose: 5,000 units Documented By: Admin: 10/11/24 13:38 Dose: 5,000 units Documented By: KTS Cefazolin Sodium (Ancef 1000mg) 1,000 mg in 7.5 mls @ 2.5 mls/min IV Q24H [facility] Stop: 11/22/24 15:59 Last Admin: 10/21/24 17:16 Dose: 2.5 mls/min Documented By: Admin: 10/20/24 17:27 Dose: 2.5 mls/min Documented By: Admin: 10/19/24 16:53 Dose: 2.5 mls/min Documented By: Admin: 10/18/24 17:15 Dose: 2.5 mls/min Documented By: Admin: 10/17/24 16:49 Dose: 2.5 mls/min Documented By: TB Co-signed By: LCS Admin: 10/16/24 16:22 Dose: 2.5 mls/min Documented By: Admin: 10/15/24 16:57 Dose: 2.5 mls/min Documented By: TB Co-signed By: LCS Admin: 10/14/24 16:46 Dose: 2.5 mls/min Documented By: TB Co-signed By: ALMAS Admin: 10/13/24 15:50 Dose: 2.5 mls/min Documented By: CARITO Co-signed By: OO Admin: 10/12/24 15:20 Dose: 2.5 mls/min Documented By: Admin: 10/11/24 17:43 Dose: 2.5 mls/min Documented By: KTS Insulin Aspart (Insulin Aspart Per Unit Charge) 0 units SC ACHS [facility] Stop: 11/13/24 05:59 Last Admin: 10/22/24 09:13 Dose: 6 units Documented By: SHASHANK Co-signed By: FUNMILAYO Admin: 10/21/24 20:58 Dose: 2 units Documented By: SANDOR Co-signed By: BRITTNEY Admin: 10/21/24 17:17 Dose: Not Given Documented By: Admin: 10/21/24 13:44 Dose: Not Given Documented By: Admin: 10/21/24 07:10 Dose: Not Given Documented By: Admin: 10/20/24 21:02 Dose: 1 units Documented By: SANDOR Co-signed By: BRITTNEY Admin: 10/20/24 17:27 Dose: 11 units Documented By: JANINE Co-signed By: SALLY Admin: 10/20/24 12:15 Dose: 8 units Documented By: JANINE Co-signed By: ALFRED Admin: 10/20/24 08:19 Dose: 7 units Documented By: JANINE Co-signed By: CHENCHO Admin: 10/19/24 20:57 Dose: 1 units Documented By: SAM Co-signed By: MARCIA Admin: 10/19/24 16:53 Dose: 7 units Documented By: JANINE Co-signed By: ARMANDO Admin: 10/19/24 12:01 Dose: 10 units Documented By: JANINE Co-signed By: K Admin: 10/19/24 08:13 Dose: 6 units Documented By: JANINE Co-signed By: SAM(2) Admin: 10/18/24 22:10 Dose: 7 units Documented By: KIKE Co-signed By: JOSE Admin: 10/18/24 17:15 Dose: 14 units Documented By: ALMAS Co-signed By: JAIME Admin: 10/18/24 12:02 Dose: 9 units Documented By: ALMAS Co-signed By: ANDRE Admin: 10/18/24 08:10 Dose: 8 units Documented By: ALMAS Co-signed By: ANDRE Admin: 10/17/24 21:33 Dose: 5 units Documented By: DAVID Co-signed By: JOSE Admin: 10/17/24 16:49 Dose: Not Given Documented By: Admin: 10/17/24 12:10 Dose: 11 units Documented By: CARITO Co-signed By: ALMAS Admin: 10/17/24 08:08 Dose: 9 units Documented By: CARITO Co-signed By: ALMAS Admin: 10/16/24 20:58 Dose: 7 units Documented By: JINNY Co-signed By: NILE Admin: 10/16/24 17:02 Dose: Not Given Documented By: Admin: 10/16/24 12:03 Dose: 12 units Documented By: ALMAS Co-signed By: JANINE Admin: 10/16/24 08:12 Dose: 10 units Documented By: ALMAS Co-signed By: NADER Admin: 10/15/24 21:41 Dose: 1 units Documented By: SANDOR Co-signed By: [id number] Admin: 10/15/24 16:56 Dose: 7 units Documented By: CARITO Co-signed By: ALMAS Admin: 10/15/24 12:02 Dose: 12 units Documented By: CARITO Co-signed By: ALMAS Admin: 10/15/24 08:21 Dose: 7 units Documented By: CARITO Co-signed By: ALMAS Admin: 10/14/24 22:04 Dose: 2 units Documented By: SANDOR Co-signed By: REMY Admin: 10/14/24 17:47 Dose: 6 units Documented By: CARITO Co-signed By: ALMAS Lidocaine (Lidocaine 5% 1 Patch) 1 patch TD QAM [facility] Stop: 11/18/24 13:44 Last Admin: 10/22/24 09:17 Dose: 1 patch Documented By: Admin: 10/21/24 12:25 Dose: Not Given Documented By: Admin: 10/20/24 08:23 Dose: 1 patch Documented By: Admin: 10/19/24 16:50 Dose: 1 patch Documented By: JANINE Miscellaneous (Remove Lidoderm Patch) 1 each N/A DAILY@2100 [facility] Stop: 11/18/24 20:59 Last Admin: 10/21/24 20:59 Dose: 1 each Documented By: Admin: 10/20/24 21:01 Dose: 1 each Documented By: Admin: 10/19/24 20:57 Dose: 1 each Documented By: SAM Ondansetron HCl (Ondansetron Inj 2 Mg/Ml 2 Ml Vial) 4 mg IV Q4H PRN PRN Reason: Nausea And Vomiting Stop: 11/09/24 15:30 Last Admin: 10/16/24 12:21 Dose: 4 mg Documented By: ALMAS Oxycodone HCl (Oxycodone Hcl Ir 5 Mg Tab (Immediate Release)) 5 mg PO Q6H PRN PRN Reason: Pain Stop: 10/27/24 13:00 Last Admin: 10/22/24 03:07 Dose: 5 mg Documented By: Admin: 10/21/24 04:18 Dose: 5 mg Documented By: Admin: 10/20/24 21:01 Dose: 5 mg Documented By: Admin: 10/20/24 08:21 Dose: 5 mg Documented By: Admin: 10/19/24 21:59 Dose: 5 mg Documented By: Admin: 10/19/24 13:00 Dose: 5 mg Documented By: Admin: 10/19/24 01:35 Dose: 5 mg Documented By: Admin: 10/18/24 17:15 Dose: 5 mg Documented By: Admin: 10/18/24 09:36 Dose: 5 mg Documented By: Admin: 10/17/24 11:10 Dose: 5 mg Documented By: CARITO Co-signed By: ALMAS Admin: 10/17/24 04:07 Dose: 5 mg Documented By: Admin: 10/16/24 07:40 Dose: 5 mg Documented By: Admin: 10/15/24 17:03 Dose: 5 mg Documented By: CARITO Co-signed By: ALMAS Admin: 10/15/24 10:19 Dose: 5 mg Documented By: CARITO Co-signed By: ALMAS Admin: 10/15/24 04:18 Dose: 5 mg Documented By: Admin: 10/14/24 16:52 Dose: 5 mg Documented By: CARITO Co-signed By: ALMAS Admin: 10/14/24 10:24 Dose: 5 mg Documented By: CARITO Co-signed By: ALMAS Polyethylene Glycol (Polyethylene (Miralax) 17 Gm Pack) 17 gm PO DAILY [facility] Stop: 11/16/24 13:44 Last Admin: 10/22/24 09:16 Dose: Not Given Documented By: Admin: 10/21/24 12:24 Dose: Not Given Documented By: Admin: 10/20/24 08:22 Dose: 17 gm Documented By: Admin: 10/19/24 08:13 Dose: 17 gm Documented By: Admin: 10/18/24 08:11 Dose: 17 gm Documented By: Admin: 10/17/24 13:59 Dose: 17 gm Documented By: TB Co-signed By: ALMAS Sennosides (Senna 8.6 Mg Tab) 8.6 mg PO QAM [facility] Stop: 11/18/24 13:44 Last Admin: 10/22/24 09:16 Dose: Not Given Documented By: [facility] Admin: 10/21/24 12:24 Dose: Not Given Documented By: Admin: 10/20/24 08:22 Dose: 8.6 mg Documented By: Admin: 10/19/24 16:50 Dose: 8.6 mg Documented By: JANINE Torsemide (Torsemide 100 Mg Tab) 100 mg PO DAILY [facility] Stop: 11/12/24 08:59 Last Admin: 10/22/24 09:17 Dose: 100 mg Documented By: [facility] Admin: 10/21/24 12:02 Dose: Not Given Documented By: Admin: 10/20/24 08:22 Dose: 100 mg Documented By: Admin: 10/19/24 08:15 Dose: 100 mg Documented By: Admin: 10/18/24 08:14 Dose: 100 mg Documented By: Admin: 10/17/24 08:10 Dose: 100 mg Documented By: TB Co-signed By: ALMAS Admin: 10/16/24 08:15 Dose: 100 mg Documented By: Admin: 10/15/24 08:21 Dose: 100 mg Documented By: TB Co-signed By: ALMAS Admin: 10/14/24 08:15 Dose: 100 mg Documented By: TB Co-signed By: ALMAS Admin: 10/13/24 08:49 Dose: 100 mg Documented By: OO Vitamin D (Cholecalciferol 125 Mcg (5,000 Units) Tab) 125 mcg PO QAM ESTHER Stop: 11/14/24 13:59 Last Admin: 10/22/24 09:15 Dose: 125 mcg Documented By: Admin: 10/21/24 12:01 Dose: 125 mcg Documented By: Admin: 10/20/24 08:23 Dose: 125 mcg Documented By: Admin: 10/19/24 08:14 Dose: 125 mcg Documented By: Admin: 10/18/24 08:13 Dose: 125 mcg Documented By: Admin: 10/17/24 08:10 Dose: 125 mcg Documented By: TB Co-signed By: ALMAS Admin: 10/16/24 09:46 Dose: 125 mcg Documented By: Admin: 10/15/24 14:30 Dose: 125 mcg Documented By: TB Co-signed By: JANINE (1) Sepsis Sepsis acute organ dysfunction status: with acute organ dysfunction Sepsis type: sepsis due to unspecified organism Severe sepsis acute organ dysfunction type: encephalopathy Severe sepsis shock status: without septic shock Qualified Code(s): A41.9 - Sepsis, unspecified organism; R65.20 - Severe sepsis without septic shock; G93.41 - Metabolic encephalopathy
[2024-10-22] MEDS: LANTUS PER UNIT CHARGE SC SCH (20:33)
[2024-10-23 07:00] LABS: Hematocrit (blood only) 26.1 % (42.0-52.0); Hemoglobin 8.7 g/dl (14.0-18.0); Mean Corpuscular Hemoglobin 31.0 pg (25.0-34.0); Mean Corpuscular Volume 92.9 fL (80.0-100.0); Platelet Count 244 K/uL (130-400); RDW Standard Deviation 48.7 fL (36.4-46.3); Red Blood Count 2.81 M/uL (4.70-6.10); White Blood Count 13.24 K/ul (4.8-10.8)
[2024-10-23 07:34] LABS: Anion Gap 9.0 (3-11); Blood Urea Nitrogen 74.0 mg/dl (6-23); Calcium 8.3 mg/dl (8.6-10.3); Carbon Dioxide 26.0 mmol/L (21-32); Chloride 89.0 mmol/L (98-107); Creatinine Clr Calc Pharmacy 13.4 ml/min; Glucose 139.0 mg/dl (70-99(Fasting)); Potassium 4.0 mmol/L (3.5-5.1); Sodium 124.0 mmol/L (136-145)
[2024-10-23] MEDS: LANTUS PER UNIT CHARGE SC SCH (09:05)
--- NOTE | 2024-10-23 09:08 | XRay Report ---
EXAM: AP portable chest EXAM REASON: Rule out infection COMPARISON: 10/10/2024 TECHNIQUE: A single AP portable view of the chest was obtained FINDINGS: The lungs are well-expanded. No focal areas of consolidation are identified. There is redemonstration of curvilinear opacities in the right lower lung zone. There is a new double catheter noted on the right. There is redemonstration of multiple median sternotomy wires and a left-sided pacemaker. The cardiac and mediastinal silhouettes are within normal limits. IMPRESSION: 1. Right lower lobe atelectasis versus scarring. Electronically signed by Shine Mathis 10-23-2024 09:08 AM
[2024-10-23 09:53] LABS: Appearance Urine Turbid (Clear); Bacteria Urine Automated 4+ (None Seen); Epithelial Cell Urine Auto 0-2 /hpf (0-2); Glucose Urine UA Negative (Negative); RBC Urine Automated >20 /hpf (0-2); WBC Urine Automated >50 /hpf (0-5)
--- NOTE | 2024-10-23 13:24 | Hospitalist Progress Note ---
Date of Service October 23, 2024 Assessment & Plan (1) Sepsis: (2) Diabetes mellitus: (3) Diabetic peripheral neuropathy associated with type 2 diabetes mellitus: (4) Peripheral vascular disease: (5) ESRD on peritoneal dialysis: (6) HTN (hypertension): (7) S/P cardiac pacemaker procedure: (8) History of diabetic ulcer of foot: Plan This is a 64-year-old male with PMHx of end-stage renal disease on peritoneal dialysis, DM type II, CAD, HTN history of complete heart block, s/p pacemaker insertion, aortic valve, bicuspid, history of PE, peripheral vascular disease, s/p left great toe amputation,chronic left 2nd and 3rd toe wound, left well- healed heel ulcer, dry gangrene of right hand, who presents to the hospital with approximately 24 hours of increased confusion, lethargy, fever, chills/rigors 2/2 sepsis. Severe Sepsis, resolved MSSA bacteremia Left 2nd/3rd Digit Foot Osteomyelitis s/p amputation Right 4th/5th Digit Osteomyelitis s/p amputation -Foot MRI: OM of left 2nd and 3rd toes. -MRI L spine (done for concerns of reported back pain): no concerns for OM. -Admitting (10/10) Bl Cx: 4 out of 4 bottles growing MSSA -Repeat Bl cx 10/12: 1 of 4 bottle growing S. Aureus [Of note, pt underwent L toe amputation later morning of 10/12]. -Left foot operative Cx 10/12: MSSA, also growing Helococcus and Anaerococcus. -MRI Rt finger (4th and 5th) 10/13: osteomyelitis at the fourth and fifth distal phalanges. -Right ring finger operative Cx 10/14: staph and Enterobacter and cutibacterium growing, follow final results. Plan: -ID shaunna, recommends iv cefazolin daily. for 6 weeks from the date of last neg blood culture. ~Discussed with ID again 10/19 evening regarding additional growth in operative cultures, no new antibiotic coverage needed, continue with prior antibiotic plan. -Due to patient's increased need pt's states she won't be able to care at home ~Plan for peritoneal dialysis catheter removal and TDC placement prior to discharge -done today -patient and would like [facility] at this time, medically stable for discharge pending disposition, peer to peer called and denied, patient appeal ongoing -now on HD Blurry Vision -noted post operatively -no vision deficits -CT imaging with substantial vascular disease but no clear new infarct or hemorrhage Plan: -neurology consulted, appreciate recs -pending MRI of brain Leukocytosis -unclear etiology at this time -mild cough, xray without obvious infiltrate Plan: -monitor -check biofire, UA, hold abx at this time given hemodynamically stable and unclear source Hyponatremia -discussed with nephrology, give 1 L water restriction Back Pain -likely 2/2 deconditioning. vitamin D level low Plan: -increased vit D3 to 125 mcg daily -OOB few times a day and PT daily as able -c/w pain Mx, follow. c/w bowel regimen while on opiates.Repeat Vit D level in 2-3 months. -pain management consult, appreciate recs Elevated high sensitive troponin Likely demand ischemia in setting of sepsis -High sensitive troponin elevated to 249 on admission; -Echocardiogram obtained; reviewed ESRD on peritoneal dialysis - -Nephro on board for dialysis assistance DM II -SSI HTN -c/w home atenolol, torsemide and amlodipine. 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 04/2014 Carotid duplex showed < 50% carotid stenosis bilaterally (report scanned in [facility]). -06/2023 carotid duplex demonstrates less than 50% carotid stenosis b/l ICAs. Hx PE in 2010, treated with Coumadin for ~3 months. -No longer on anticoagulation I spent a total of 50 minutes in direct patient care, including [id number] time with the patient and/or family, reviewing medical records, ordering and reviewing diagnostic tests, and coordinating care with other healthcare providers. This time includes: history taking, physical examination, medical decision making, counseling, ECG interpretation, imaging interpretation, lab interpretation, orders, and education, excluding time spent in the performance of separately billed services. Admission and Anticipated Discharge Date Admission Date: October 10, 2024 Subjective Patient seen and examined at bedside. present as well. Patient doing good today. States he has a slight cough, otherwise feels well. No drainage or worsening pain from wounds. Review of Systems Review of Systems: CONSTITUTIONAL: Patient denies fevers, chills, sweats and weight changes. EARS, NOSE, AND THROAT: No difficulties with hearing. No symptoms of rhinitis or sore throat. CARDIOVASCULAR: Patient denies chest pains, palpitations, orthopnea and paroxysmal nocturnal dyspnea. RESPIRATORY: slight cough. GI: No nausea, vomiting, diarrhea, constipation, abdominal pain, hematochezia or melena. : No urinary hesitancy or dribbling. No nocturia or urinary frequency. No abnormal urethral discharge. MUSCULOSKELETAL: back pain NEUROLOGIC: No chronic headaches, no seizures. Patient denies numbness, tingling or weakness. PSYCHIATRIC: Patient denies problems with mood disturbance. No problems with anxiety. ENDOCRINE: No excessive urination or excessive thirst. DERMATOLOGIC: Patient denies any rashes or skin changes. Physical Exam Physical Exam: Gen: A&O 3 NAD, sarcopenia noted HEENT: NCAT, EOMI, not icteric. External ears normal. No rhinorrhea. Moist mucous membranes. Neck: Supple, full range of motion, no observable masses, No meningeal sign. Lungs: No Respiratory distress. CV: RRR, no edema. Abdomen: Soft, nondistended, No rebound tenderness. MSK: clean wounds on right fingers s/p amputation, foot wounds noted Skin: No rashes, petechiae, lesions. Normal color per patient. Neuro: Normal Gait, Grossly intact. Psych: Appropriate for situation. Results & Data Results & Data Vital Signs (Past 12 Hours) Vital Signs Temp Pulse Pulse Resp BP Pulse Ox O2 Del Method 10/23/24 11:23 36.5 C 63 16 135/68 96 Room Air 10/23/24 08:39 36.6 C 76 16 114/58 L 94 Room Air 10/23/24 02:27 36.7 C 77 16 100/47 L 95 Room Air Laboratory Results -personally reviewed, uptrending leukocytosis, Hgb relatively stable, Na drop to 124 Medications Administered Acetaminophen (Acetaminophen 325 Mg Tab) 650 mg PO Q4H PRN PRN Reason: Moderate Pain (Scale 4, 5, 6) Stop: 11/09/24 15:30 Last Admin: 10/23/24 00:32 Dose: 650 mg Documented By: Admin: 10/17/24 04:07 Dose: 650 mg Documented By: Admin: 10/10/24 20:32 Dose: 650 mg Documented By: SARAH Amlodipine Besylate (Amlodipine Besylate 5 Mg Tab) 2.5 mg PO QAM ESTHER Stop: 11/12/24 08:59 Last Admin: 10/23/24 08:10 Dose: 2.5 mg Documented By: Admin: 10/22/24 09:14 Dose: 2.5 mg Documented By: Admin: 10/21/24 12:01 Dose: Not Given Documented By: Admin: 10/20/24 08:22 Dose: 2.5 mg Documented By: Admin: 10/19/24 08:15 Dose: 2.5 mg Documented By: Admin: 10/18/24 08:12 Dose: 2.5 mg Documented By: Admin: 10/17/24 08:11 Dose: 2.5 mg Documented By: TB Co-signed By: ALMAS Admin: 10/16/24 08:14 Dose: 2.5 mg Documented By: Admin: 10/15/24 08:20 Dose: 2.5 mg Documented By: TB Co-signed By: LCS Admin: 10/14/24 08:16 Dose: 2.5 mg Documented By: TB Co-signed By: ALMAS Admin: 10/13/24 08:50 Dose: 2.5 mg Documented By: OSirena Aspirin (Aspirin 81 Mg Ectab) 81 mg PO DAILY [facility] Stop: 11/14/24 08:59 Last Admin: 10/23/24 08:11 Dose: 81 mg Documented By: Admin: 10/22/24 09:15 Dose: 81 mg Documented By: Admin: 10/21/24 12:00 Dose: 81 mg Documented By: Admin: 10/20/24 08:22 Dose: 81 mg Documented By: Admin: 10/19/24 08:14 Dose: 81 mg Documented By: Admin: 10/18/24 08:12 Dose: 81 mg Documented By: Admin: 10/17/24 08:10 Dose: 81 mg Documented By: TB Co-signed By: ALMAS Admin: 10/16/24 08:14 Dose: 81 mg Documented By: Admin: 10/15/24 09:17 Dose: 81 mg Documented By: TB Co-signed By: AAL Atenolol (Atenolol 50 Mg Tablet) 50 mg PO QAM ESTHER Stop: 11/11/24 13:59 Last Admin: 10/23/24 08:11 Dose: 50 mg Documented By: Admin: 10/22/24 09:15 Dose: 50 mg Documented By: Admin: 10/21/24 12:01 Dose: Not Given Documented By: Admin: 10/20/24 08:22 Dose: 50 mg Documented By: Admin: 10/19/24 08:14 Dose: 50 mg Documented By: Admin: 10/18/24 08:13 Dose: 50 mg Documented By: Admin: 10/17/24 08:11 Dose: 50 mg Documented By: TB Co-signed By: ALMAS Admin: 10/16/24 08:14 Dose: 50 mg Documented By: Admin: 10/15/24 08:20 Dose: 50 mg Documented By: TB Co-signed By: ALMAS Admin: 10/14/24 08:15 Dose: 50 mg Documented By: TB Co-signed By: ALMAS Admin: 10/13/24 10:05 Dose: 50 mg Documented By: Admin: 10/12/24 15:20 Dose: 50 mg Documented By: KTS Atorvastatin Calcium (Atorvastatin 40 Mg Tab) 80 mg PO QPM ESTHER Stop: 11/09/24 20:59 Last Admin: 10/22/24 20:34 Dose: 80 mg Documented By: Admin: 10/21/24 20:59 Dose: 80 mg Documented By: Admin: 10/20/24 21:01 Dose: 80 mg Documented By: Admin: 10/19/24 20:55 Dose: 80 mg Documented By: Admin: 10/18/24 22:09 Dose: 80 mg Documented By: Admin: 10/17/24 19:59 Dose: 80 mg Documented By: Admin: 10/16/24 20:53 Dose: 80 mg Documented By: Admin: 10/15/24 20:12 Dose: 80 mg Documented By: Admin: 10/14/24 22:04 Dose: 80 mg Documented By: Admin: 10/13/24 20:58 Dose: 80 mg Documented By: Admin: 10/12/24 20:27 Dose: 80 mg Documented By: Admin: 10/11/24 20:31 Dose: 80 mg Documented By: Admin: 10/10/24 20:25 Dose: 80 mg Documented By: SARAH Clopidogrel Bisulfate (Clopidogrel Bisulfate 75 Mg Tab) 75 mg PO HS ESTHER Stop: 11/09/24 20:59 Last Admin: 10/22/24 20:34 Dose: 75 mg Documented By: Admin: 10/21/24 20:59 Dose: 75 mg Documented By: Admin: 10/20/24 21:02 Dose: 75 mg Documented By: Admin: 10/19/24 20:55 Dose: 75 mg Documented By: Admin: 10/18/24 22:08 Dose: 75 mg Documented By: Admin: 10/17/24 19:58 Dose: 75 mg Documented By: Admin: 10/16/24 20:54 Dose: 75 mg Documented By: Admin: 10/15/24 20:12 Dose: 75 mg Documented By: Admin: 10/14/24 22:04 Dose: 75 mg Documented By: Admin: 10/13/24 20:58 Dose: 75 mg Documented By: Admin: 10/12/24 20:27 Dose: 75 mg Documented By: Admin: 10/11/24 20:32 Dose: 75 mg Documented By: Admin: 10/10/24 20:24 Dose: 75 mg Documented By: SARAH Diclofenac Sodium (Diclofenac Sod 1% Gel 100 Gm Tube) 4 gm EXT Q6H ESTHER; Protocol Stop: 11/13/24 10:29 Last Admin: 10/23/24 11:48 Dose: Not Given Documented By: Admin: 10/23/24 03:58 Dose: Not Given Documented By: Admin: 10/22/24 20:35 Dose: 4 gm Documented By: Admin: 10/22/24 16:16 Dose: 4 gm Documented By: Admin: 10/22/24 12:05 Dose: Not Given Documented By: [facility] Admin: 10/22/24 05:18 Dose: 4 gm Documented By: Admin: 10/21/24 21:31 Dose: 4 gm Documented By: Admin: 10/21/24 17:16 Dose: 4 gm Documented By: Admin: 10/21/24 12:24 Dose: Not Given Documented By: Admin: 10/21/24 04:19 Dose: 4 gm Documented By: Admin: 10/20/24 23:12 Dose: 4 gm Documented By: Admin: 10/20/24 17:27 Dose: 4 gm Documented By: Admin: 10/20/24 12:15 Dose: 4 gm Documented By: Admin: 10/20/24 05:14 Dose: 4 gm Documented By: Admin: 10/19/24 20:56 Dose: 4 gm Documented By: Admin: 10/19/24 16:54 Dose: 4 gm Documented By: Admin: 10/19/24 11:31 Dose: 4 gm Documented By: Admin: 10/19/24 04:30 Dose: Not Given Documented By: Admin: 10/18/24 22:10 Dose: Not Given Documented By: Admin: 10/18/24 17:38 Dose: 4 gm Documented By: Admin: 10/18/24 12:05 Dose: 4 gm Documented By: Admin: 10/18/24 04:40 Dose: Not Given Documented By: Admin: 10/17/24 21:34 Dose: Not Given Documented By: Admin: 10/17/24 16:49 Dose: 4 gm Documented By: CARITO Co-signed By: ALMAS Admin: 10/17/24 12:10 Dose: 4 gm Documented By: CARITO Co-signed By: ALMAS Admin: 10/17/24 04:08 Dose: 4 gm Documented By: Admin: 10/16/24 22:54 Dose: Not Given Documented By: Admin: 10/16/24 16:22 Dose: 4 gm Documented By: Admin: 10/16/24 09:46 Dose: 4 gm Documented By: Admin: 10/16/24 05:18 Dose: 4 gm Documented By: Admin: 10/15/24 21:42 Dose: 4 gm Documented By: Admin: 10/15/24 16:57 Dose: 4 gm Documented By: TB Co-signed By: ALMAS Admin: 10/15/24 12:02 Dose: 4 gm Documented By: TB Co-signed By: ALMAS Admin: 10/15/24 04:20 Dose: 4 gm Documented By: Admin: 10/14/24 22:05 Dose: 4 gm Documented By: Admin: 10/14/24 16:45 Dose: 4 gm Documented By: CARITO Co-signed By: ALMAS Admin: 10/14/24 11:03 Dose: 4 gm Documented By: CARITO Co-signed By: ALMAS Docusate Sodium (Docusate Sodium 100 Mg Cap) 100 mg PO BID ESTHER Stop: 11/11/24 20:59 Last Admin: 10/23/24 08:12 Dose: Not Given Documented By: Admin: 10/22/24 20:34 Dose: 100 mg Documented By: Admin: 10/22/24 09:15 Dose: Not Given Documented By: Admin: 10/21/24 20:59 Dose: 100 mg Documented By: Admin: 10/21/24 12:01 Dose: Not Given Documented By: Admin: 10/20/24 21:01 Dose: 100 mg Documented By: Admin: 10/20/24 08:22 Dose: 100 mg Documented By: Admin: 10/19/24 20:56 Dose: 100 mg Documented By: Admin: 10/19/24 08:13 Dose: 100 mg Documented By: Admin: 10/19/24 01:37 Dose: Not Given Documented By: Admin: 10/18/24 08:11 Dose: 100 mg Documented By: Admin: 10/17/24 19:59 Dose: 100 mg Documented By: Admin: 10/17/24 08:12 Dose: Not Given Documented By: Admin: 10/16/24 20:58 Dose: 100 mg Documented By: Admin: 10/16/24 08:14 Dose: Not Given Documented By: Admin: 10/15/24 20:12 Dose: 100 mg Documented By: Admin: 10/15/24 08:49 Dose: Not Given Documented By: Admin: 10/14/24 22:04 Dose: 100 mg Documented By: Admin: 10/14/24 08:16 Dose: Not Given Documented By: Admin: 10/13/24 20:57 Dose: 100 mg Documented By: Admin: 10/13/24 08:51 Dose: 100 mg Documented By: Admin: 10/12/24 20:28 Dose: Not Given Documented By: AKP Erythromycin (Erythromycin Op Oint 5 Mg/Gm 3.5 Gm Tube) 1 appln OP TID ESTHER Stop: 10/31/24 13:59 Last Admin: 10/23/24 08:12 Dose: 1 appln Documented By: Admin: 10/22/24 20:34 Dose: 1 appln Documented By: Admin: 10/22/24 14:52 Dose: 1 appln Documented By: Admin: 10/22/24 09:16 Dose: 1 appln Documented By: Admin: 10/21/24 21:29 Dose: 1 appln Documented By: Admin: 10/21/24 17:16 Dose: Not Given Documented By: Admin: 10/21/24 11:13 Dose: 1 appln Documented By: SED Gabapentin (Gabapentin 600 Mg Tab) 600 mg PO TID [facility] Stop: 11/09/24 15:30 Last Admin: 10/23/24 08:10 Dose: 600 mg Documented By: Admin: 10/22/24 20:34 Dose: 600 mg Documented By: Admin: 10/22/24 14:52 Dose: 600 mg Documented By: [facility] Admin: 10/22/24 09:17 Dose: 600 mg Documented By: [facility] Admin: 10/21/24 20:59 Dose: 600 mg Documented By: Admin: 10/21/24 16:19 Dose: Not Given Documented By: Admin: 10/21/24 12:00 Dose: 600 mg Documented By: Admin: 10/20/24 21:01 Dose: 600 mg Documented By: Admin: 10/20/24 12:15 Dose: 600 mg Documented By: Admin: 10/20/24 08:22 Dose: 600 mg Documented By: Admin: 10/19/24 20:56 Dose: 600 mg Documented By: Admin: 10/19/24 12:02 Dose: 600 mg Documented By: Admin: 10/19/24 08:14 Dose: 600 mg Documented By: Admin: 10/18/24 22:08 Dose: 600 mg Documented By: Admin: 10/18/24 14:34 Dose: 600 mg Documented By: Admin: 10/18/24 08:14 Dose: 600 mg Documented By: Admin: 10/17/24 19:58 Dose: 600 mg Documented By: Admin: 10/17/24 14:08 Dose: 600 mg Documented By: TB Co-signed By: LCS Admin: 10/17/24 08:10 Dose: 600 mg Documented By: TB Co-signed By: ALMAS Admin: 10/16/24 20:54 Dose: 600 mg Documented By: Admin: 10/16/24 13:31 Dose: 600 mg Documented By: Admin: 10/16/24 08:15 Dose: 600 mg Documented By: Admin: 10/15/24 20:12 Dose: 600 mg Documented By: Admin: 10/15/24 14:15 Dose: 600 mg Documented By: TB Co-signed By: ALMAS Admin: 10/15/24 08:21 Dose: 600 mg Documented By: TB Co-signed By: ALMAS Admin: 10/14/24 22:04 Dose: 600 mg Documented By: Admin: 10/14/24 16:43 Dose: 600 mg Documented By: TB Co-signed By: ALMAS Admin: 10/14/24 08:15 Dose: 600 mg Documented By: TB Co-signed By: ALMAS Admin: 10/13/24 20:58 Dose: 600 mg Documented By: Admin: 10/13/24 13:56 Dose: 600 mg Documented By: Admin: 10/13/24 08:50 Dose: 600 mg Documented By: Admin: 10/12/24 20:27 Dose: 600 mg Documented By: Admin: 10/12/24 14:02 Dose: 600 mg Documented By: Admin: 10/12/24 08:08 Dose: 600 mg Documented By: Admin: 10/11/24 20:32 Dose: 600 mg Documented By: Admin: 10/11/24 13:38 Dose: 600 mg Documented By: Admin: 10/11/24 08:54 Dose: 600 mg Documented By: Admin: 10/10/24 20:24 Dose: 600 mg Documented By: Admin: 10/10/24 16:25 Dose: 600 mg Documented By: EDD Heparin Sodium (Porcine) (Heparin Sod 5,000 Unit/0.5 Ml Vial) 5,000 units SQ Q8 ESTHER Stop: 11/10/24 13:59 Last Admin: 10/23/24 05:57 Dose: 5,000 units Documented By: Admin: 10/22/24 20:34 Dose: 5,000 units Documented By: Admin: 10/22/24 14:52 Dose: 5,000 units Documented By: Admin: 10/22/24 06:22 Dose: 5,000 units Documented By: Admin: 10/21/24 21:00 Dose: 5,000 units Documented By: Admin: 10/21/24 16:20 Dose: Not Given Documented By: Admin: 10/21/24 06:24 Dose: 5,000 units Documented By: Admin: 10/20/24 21:01 Dose: 5,000 units Documented By: Admin: 10/20/24 12:15 Dose: 5,000 units Documented By: Admin: 10/20/24 05:14 Dose: 5,000 units Documented By: Admin: 10/19/24 20:57 Dose: 5,000 units Documented By: Admin: 10/19/24 12:02 Dose: 5,000 units Documented By: Admin: 10/19/24 06:25 Dose: 5,000 units Documented By: Admin: 10/18/24 22:09 Dose: 5,000 units Documented By: Admin: 10/18/24 14:34 Dose: 5,000 units Documented By: Admin: 10/18/24 05:52 Dose: 5,000 units Documented By: Admin: 10/17/24 21:34 Dose: 5,000 units Documented By: Admin: 10/17/24 13:59 Dose: 5,000 units Documented By: CARITO Co-signed By: ALMAS Admin: 10/17/24 05:51 Dose: 5,000 units Documented By: Admin: 10/16/24 22:54 Dose: Not Given Documented By: Admin: 10/16/24 13:31 Dose: 5,000 units Documented By: Admin: 10/16/24 05:31 Dose: 5,000 units Documented By: Admin: 10/15/24 21:41 Dose: 5,000 units Documented By: Admin: 10/15/24 14:15 Dose: 5,000 units Documented By: TB Co-signed By: ALMAS Admin: 10/15/24 06:37 Dose: 5,000 units Documented By: Admin: 10/14/24 22:05 Dose: 5,000 units Documented By: Admin: 10/13/24 13:58 Dose: 5,000 units Documented By: Admin: 10/13/24 06:25 Dose: 5,000 units Documented By: Admin: 10/12/24 20:31 Dose: 5,000 units Documented By: Admin: 10/12/24 14:02 Dose: 5,000 units Documented By: Admin: 10/12/24 05:45 Dose: 5,000 units Documented By: Admin: 10/11/24 21:09 Dose: 5,000 units Documented By: Admin: 10/11/24 13:38 Dose: 5,000 units Documented By: ADILENE Cefazolin Sodium (Ancef 1000mg) 1,000 mg in 7.5 mls @ 2.5 mls/min IV Q24H ESTHER Stop: 11/22/24 15:59 Last Admin: 10/22/24 16:15 Dose: 2.5 mls/min Documented By: Admin: 10/21/24 17:16 Dose: 2.5 mls/min Documented By: Admin: 10/20/24 17:27 Dose: 2.5 mls/min Documented By: Admin: 10/19/24 16:53 Dose: 2.5 mls/min Documented By: Admin: 10/18/24 17:15 Dose: 2.5 mls/min Documented By: Admin: 10/17/24 16:49 Dose: 2.5 mls/min Documented By: TB Co-signed By: LCS Admin: 10/16/24 16:22 Dose: 2.5 mls/min Documented By: Admin: 10/15/24 16:57 Dose: 2.5 mls/min Documented By: TB Co-signed By: LCS Admin: 10/14/24 16:46 Dose: 2.5 mls/min Documented By: TB Co-signed By: LCS Admin: 10/13/24 15:50 Dose: 2.5 mls/min Documented By: TB Co-signed By: OO Admin: 10/12/24 15:20 Dose: 2.5 mls/min Documented By: Admin: 10/11/24 17:43 Dose: 2.5 mls/min Documented By: KTS Insulin Aspart (Insulin Aspart Per Unit Charge) 0 units SC ACHS ESTHER Stop: 11/13/24 05:59 Last Admin: 10/23/24 12:28 Dose: 13 units Documented By: RLB Co-signed By: ASA Admin: 10/23/24 09:04 Dose: 8 units Documented By: RLB Co-signed By: ARUNB Admin: 10/22/24 20:34 Dose: 1 units Documented By: LOUISE Co-signed By: KAEliceo Admin: 10/22/24 17:49 Dose: 11 units Documented By: RLJoyce Co-signed By: JOSE CARLOS Admin: 10/22/24 12:23 Dose: 12 units Documented By: SHASHANK Co-signed By: ABBY Admin: 10/22/24 09:13 Dose: 6 units Documented By: SHASHANK Co-signed By: FUNMILAYO Admin: 10/21/24 20:58 Dose: 2 units Documented By: SANDOR Co-signed By: BRITTNEY Admin: 10/21/24 17:17 Dose: Not Given Documented By: Admin: 10/21/24 13:44 Dose: Not Given Documented By: Admin: 10/21/24 07:10 Dose: Not Given Documented By: Admin: 10/20/24 21:02 Dose: 1 units Documented By: SANDOR Co-signed By: BRITTNEY Admin: 10/20/24 17:27 Dose: 11 units Documented By: JANINE Co-signed By: SALLY Admin: 10/20/24 12:15 Dose: 8 units Documented By: JANINE Co-signed By: ALFRED Admin: 10/20/24 08:19 Dose: 7 units Documented By: CA Co-signed By: MES Admin: 10/19/24 20:57 Dose: 1 units Documented By: SAM Co-signed By: MARCIA Admin: 10/19/24 16:53 Dose: 7 units Documented By: JANINE Co-signed By: ARMANDO Admin: 10/19/24 12:01 Dose: 10 units Documented By: JANINE Co-signed By: K Admin: 10/19/24 08:13 Dose: 6 units Documented By: JANINE Co-signed By: SAM(2) Admin: 10/18/24 22:10 Dose: 7 units Documented By: MMG Co-signed By: JOSE Admin: 10/18/24 17:15 Dose: 14 units Documented By: ALMAS Co-signed By: JAIME Admin: 10/18/24 12:02 Dose: 9 units Documented By: ALMAS Co-signed By: ANDRE Admin: 10/18/24 08:10 Dose: 8 units Documented By: ALMAS Co-signed By: ANDRE Admin: 10/17/24 21:33 Dose: 5 units Documented By: DAVID Co-signed By: JOSE Admin: 10/17/24 16:49 Dose: Not Given Documented By: Admin: 10/17/24 12:10 Dose: 11 units Documented By: TB Co-signed By: ALMAS Admin: 10/17/24 08:08 Dose: 9 units Documented By: CARITO Co-signed By: ALMAS Admin: 10/16/24 20:58 Dose: 7 units Documented By: JINNY Co-signed By: OS Admin: 10/16/24 17:02 Dose: Not Given Documented By: Admin: 10/16/24 12:03 Dose: 12 units Documented By: ALMAS Co-signed By: CA Admin: 10/16/24 08:12 Dose: 10 units Documented By: ALMAS Co-signed By: NADER Admin: 10/15/24 21:41 Dose: 1 units Documented By: SANDOR Co-signed By: [id number] Admin: 10/15/24 16:56 Dose: 7 units Documented By: TB Co-signed By: ALMAS Admin: 10/15/24 12:02 Dose: 12 units Documented By: TB Co-signed By: ALMAS Admin: 10/15/24 08:21 Dose: 7 units Documented By: TB Co-signed By: ALMAS Admin: 10/14/24 22:04 Dose: 2 units Documented By: SANDOR Co-signed By: RADHAR Admin: 10/14/24 17:47 Dose: 6 units Documented By: TB Co-signed By: ALMAS Insulin Glargine (Lantus Per Unit Charge) 15 units SC BID [facility] Stop: 11/22/24 08:59 Last Admin: 10/23/24 09:05 Dose: 15 units Documented By: RLB Co-signed By: AMY Lidocaine (Lidocaine 5% 1 Patch) 1 patch TD QAM [facility] Stop: 11/18/24 13:44 Last Admin: 10/23/24 08:12 Dose: 1 patch Documented By: Admin: 10/22/24 09:17 Dose: 1 patch Documented By: Admin: 10/21/24 12:25 Dose: Not Given Documented By: Admin: 10/20/24 08:23 Dose: 1 patch Documented By: Admin: 10/19/24 16:50 Dose: 1 patch Documented By: JANINE Miscellaneous (Remove Lidoderm Patch) 1 each N/A DAILY@2100 [facility] Stop: 11/18/24 20:59 Last Admin: 10/22/24 20:35 Dose: 1 each Documented By: Admin: 10/21/24 20:59 Dose: 1 each Documented By: Admin: 10/20/24 21:01 Dose: 1 each Documented By: Admin: 10/19/24 20:57 Dose: 1 each Documented By: SAM Ondansetron HCl (Ondansetron Inj 2 Mg/Ml 2 Ml Vial) 4 mg IV Q4H PRN PRN Reason: Nausea And Vomiting Stop: 11/09/24 15:30 Last Admin: 10/16/24 12:21 Dose: 4 mg Documented By: ALMAS Oxycodone HCl (Oxycodone Hcl Ir 5 Mg Tab (Immediate Release)) 5 mg PO Q6H PRN PRN Reason: Pain Stop: 10/27/24 13:00 Last Admin: 10/23/24 05:57 Dose: 5 mg Documented By: Admin: 10/22/24 20:33 Dose: 5 mg Documented By: Admin: 10/22/24 03:07 Dose: 5 mg Documented By: Admin: 10/21/24 04:18 Dose: 5 mg Documented By: Admin: 10/20/24 21:01 Dose: 5 mg Documented By: Admin: 10/20/24 08:21 Dose: 5 mg Documented By: Admin: 10/19/24 21:59 Dose: 5 mg Documented By: Admin: 10/19/24 13:00 Dose: 5 mg Documented By: Admin: 10/19/24 01:35 Dose: 5 mg Documented By: Admin: 10/18/24 17:15 Dose: 5 mg Documented By: Admin: 10/18/24 09:36 Dose: 5 mg Documented By: Admin: 10/17/24 11:10 Dose: 5 mg Documented By: TB Co-signed By: ALMAS Admin: 10/17/24 04:07 Dose: 5 mg Documented By: Admin: 10/16/24 07:40 Dose: 5 mg Documented By: Admin: 10/15/24 17:03 Dose: 5 mg Documented By: TB Co-signed By: ALMAS Admin: 10/15/24 10:19 Dose: 5 mg Documented By: TB Co-signed By: ALMAS Admin: 10/15/24 04:18 Dose: 5 mg Documented By: Admin: 10/14/24 16:52 Dose: 5 mg Documented By: TB Co-signed By: ALMAS Admin: 10/14/24 10:24 Dose: 5 mg Documented By: CARITO Co-signed By: ALMAS Polyethylene Glycol (Polyethylene (Miralax) 17 Gm Pack) 17 gm PO DAILY ESTHER Stop: 11/16/24 13:44 Last Admin: 10/23/24 08:15 Dose: Not Given Documented By: Admin: 10/22/24 09:16 Dose: Not Given Documented By: Admin: 10/21/24 12:24 Dose: Not Given Documented By: Admin: 10/20/24 08:22 Dose: 17 gm Documented By: Admin: 10/19/24 08:13 Dose: 17 gm Documented By: Admin: 10/18/24 08:11 Dose: 17 gm Documented By: Admin: 10/17/24 13:59 Dose: 17 gm Documented By: TB Co-signed By: ALMAS Sennosides (Senna 8.6 Mg Tab) 8.6 mg PO QAM ESTHER Stop: 11/18/24 13:44 Last Admin: 10/23/24 08:15 Dose: 8.6 mg Documented By: Admin: 10/22/24 09:16 Dose: Not Given Documented By: Admin: 10/21/24 12:24 Dose: Not Given Documented By: Admin: 10/20/24 08:22 Dose: 8.6 mg Documented By: Admin: 10/19/24 16:50 Dose: 8.6 mg Documented By: JANINE Torsemide (Torsemide 100 Mg Tab) 100 mg PO DAILY ESTHER Stop: 11/12/24 08:59 Last Admin: 10/23/24 08:11 Dose: 100 mg Documented By: Admin: 10/22/24 09:17 Dose: 100 mg Documented By: Admin: 10/21/24 12:02 Dose: Not Given Documented By: Admin: 10/20/24 08:22 Dose: 100 mg Documented By: Admin: 10/19/24 08:15 Dose: 100 mg Documented By: Admin: 10/18/24 08:14 Dose: 100 mg Documented By: Admin: 10/17/24 08:10 Dose: 100 mg Documented By: TB Co-signed By: LCS Admin: 10/16/24 08:15 Dose: 100 mg Documented By: Admin: 10/15/24 08:21 Dose: 100 mg Documented By: TB Co-signed By: LCS Admin: 10/14/24 08:15 Dose: 100 mg Documented By: TB Co-signed By: LCS Admin: 10/13/24 08:49 Dose: 100 mg Documented By: OO Vitamin D (Cholecalciferol 125 Mcg (5,000 Units) Tab) 125 mcg PO QAM ESTHER Stop: 11/14/24 13:59 Last Admin: 10/23/24 08:11 Dose: 125 mcg Documented By: Admin: 10/22/24 09:15 Dose: 125 mcg Documented By: Admin: 10/21/24 12:01 Dose: 125 mcg Documented By: Admin: 10/20/24 08:23 Dose: 125 mcg Documented By: Admin: 10/19/24 08:14 Dose: 125 mcg Documented By: Admin: 10/18/24 08:13 Dose: 125 mcg Documented By: Admin: 10/17/24 08:10 Dose: 125 mcg Documented By: TB Co-signed By: LCS Admin: 10/16/24 09:46 Dose: 125 mcg Documented By: Admin: 10/15/24 14:30 Dose: 125 mcg Documented By: TB Co-signed By: JANINE (1) Sepsis Sepsis acute organ dysfunction status: with acute organ dysfunction Sepsis type: sepsis due to unspecified organism Severe sepsis acute organ dysfunction type: encephalopathy Severe sepsis shock status: without septic shock Qualified Code(s): A41.9 - Sepsis, unspecified organism; R65.20 - Severe sepsis without septic shock; G93.41 - Metabolic encephalopathy
--- NOTE | 2024-10-23 14:57 | Pharmacy Report ---
Pharmacy Glycemic Short Note 2 - Date of Service October 23, 2024 - Glycemic Short BSG Results (Last 24 hours): 10/22/24 10/22/24 10/23/24 16:33 20:01 06:24 Glucose 139 H POC Glucose 120 H 156 H 10/23/24 10/23/24 08:22 12:11 Glucose POC Glucose 174 H 162 H OUTPATIENT ANTIDIABETIC REGIMEN: * NovoLog 5 units SQ QAM, 10 units @ noon, 10 units in afternoon, CF 20 >140mg/dL * Lantus 20 untis SQ BID * HbA1c is unreliable in ESRD patients d/t interactions between the A1c analyzing technique and high levels of urea in ESRD, reduced RBC life span, iron deficiency anemia, and EPO administration. HbA1c > 7.5% in ESRD patient may overestimate the extent of hyperglycemia in ESRD patients. ASSESSMENT: 10/23 * Otto received a total of 50 units of SQ insulin yesterday (20 units basal + 30 units bolus). * Fasting BSG = 174 mg/dL today. Oral intake improved. Will resume BID dosing of Lantus. * HD catheter placed on 10/21. Patient had 4 hour HD session that day. 10/21: * BSGs [phone]/dL the last 24h. Received 40units of basal and 27 units of bolus insulin yesterday. * NPO this AM for HD cath placement and remains NPO this afternoon. AM Lantus held by nursing this morning given fasting BSG in 90s and prolonged NPO status. * Resume Lantus 20 units tonight and then reassess basal in AM. No change to Novolog. 10/20: * Patient received 64 units of insulin yesterday, 40 of which were basal. BSGs have been well controlled over the past 24 hours: [phone] mg/dL * Fasting BSG remains adequate at 115 mg/dL. * Patient is ordered and tolerating a diet. * Plan to transition to HD tomorrow from PD. 10/18 * Patient has received 25 units BID per scale x last 3 days- fasting within range, will schedule * BSGs slightly lower than goal with lunch/dinner yesterday but not hypoglycemic. Patient has refused with insulin with dinner leading to high HS blood sugar. Will loosen carb ratio slightly to try and maintain BSG 110-140 mg/dL 10/14 * NPO for OR this AM * Fasting BSG elevated this AM. Increased lantus sliding scale. * Tightened CF and CR 2nd elevated post-prandial glucose. 10/13 * Diet resumed this AM after ANI * Fasting BSG elevated. Will increase Lantus * One post-prandial BSG elevated yesterday after tightening Novolog parameters. Will not make further adjustments for now, but may consider tightening Novolog parameters if post-prandial BSG's remain elevated. PLAN FOR INPATIENT GLYCEMIC CONTROL: * Hold outpatient oral diabetes medications * Basal insulin * Lantus 15 units SQ BID * Bolus insulin * NovoLog per scale ACHS or Q6hrs while NPO * Goal Range: Low 110 mg/dL - High 140 mg/dL * Correction Factor: 20 mg/dL/unit * Nutritional / Prandial insulin per carb ratio of 1 unit per 7 grams CHO consumed
[2024-10-23 19:09] LABS: Chlamydia pneumoniae PCR Not Detected (NotDetected); Coronavirus 229E PCR Not Detected (NotDetected); Coronavirus CoV-2 (COVID19)PCR Not Detected (NotDetected); Coronavirus HKU1 PCR Not Detected (NotDetected); Coronavirus NL63 PCR Not Detected (NotDetected); Coronavirus OC43PCR Not Detected (NotDetected); Human Metapneumovirus PCR Not Detected (NotDetected); Parainfluenza Virus 1 PCR Not Detected (NotDetected); Parainfluenza Virus 2 PCR Not Detected (NotDetected); Parainfluenza Virus 3 PCR Not Detected (NotDetected); Parainfluenza Virus 4 PCR Not Detected (NotDetected); Respiratory Syncytial VirusPCR Not Detected (NotDetected); Rhinovirus/Enterovirus PCR Not Detected (NotDetected)
[2024-10-24] MEDS ORDERED: SODIUM CHLORIDE 0.9% 1,000 ML IV PRN (07:00)
[2024-10-24 07:18] LABS: Hematocrit (blood only) 25.4 % (42.0-52.0); Hemoglobin 8.8 g/dl (14.0-18.0); Mean Corpuscular Hemoglobin 31.9 pg (25.0-34.0); Mean Corpuscular Volume 92.0 fL (80.0-100.0); Platelet Count 245 K/uL (130-400); RDW Standard Deviation 47.8 fL (36.4-46.3); Red Blood Count 2.76 M/uL (4.70-6.10); White Blood Count 15.18 K/ul (4.8-10.8)
[2024-10-24 07:39] LABS: Anion Gap 13.0 (3-11); Blood Urea Nitrogen 90.0 mg/dl (6-23); Calcium 8.3 mg/dl (8.6-10.3); Carbon Dioxide 23.0 mmol/L (21-32); Chloride 88.0 mmol/L (98-107); Creatinine Clr Calc Pharmacy 11.4 ml/min; Glucose 99.0 mg/dl (70-99(Fasting)); Potassium 4.6 mmol/L (3.5-5.1); Sodium 124.0 mmol/L (136-145)
[2024-10-24 08:33] LABS: Immature Granulocytes # (auto) 0.20 K/uL (0.01-0.20); Immature Granulocytes % (auto) 1.3 %
--- NOTE | 2024-10-24 13:33 | Nephrology Progress Note ---
Date of Service October 24, 2024 Assessment & Plan (1) ESRD on peritoneal dialysis: Plan: patient does not have much residual renal function left as he makes only about 500ml of urine per day, has made as much as 1.2L on one day at least this admission he has been doing peritoneal dialysis through a nocturnal cycler at home for the last few months. Previously was on hemodialysis and desires to change back to HD for foreseeable future not only for rehab but b/c of carepartner fatigue/health issues ESRD secondary to diabetes hypertension and chronic diffuse vascular disease. fluid status acceptable labs appear acceptable though reemerging hyponatremia 132 today and BUN up to 100 PD cath removed and C VAC placed on October 21 Undergoing first dialysis treatment on 10/21 and awaiting on rehab dispo - For HD today-- UF as tolerated to keep SBP> 100, low sodium-- keep on 1 lit FR while inpatient -->needs IV abx for 6 weeks. Waiting to be transferred to Rehab thisi week (2) Sepsis: Plan: PD fluid negative for peritonitis. No need of IP abx . ID eval done. MSSA bacteremia. ANI--negative. getting Some Amputations. Blood C/s from 10/14 so far negative. 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 for Cefazolin for 6 weeks. >>NEEDS bm daily to prevent translocational peritonitis - primary service aware Admission and Anticipated Discharge Date Admission Date: October 10, 2024 Subjective Patient seen and examined at bedside Patient doing good today.No new complains No drainage or worsening pain from wounds. Review of Systems 2 Review of Systems: All systems reviewed & are unremarkable except as noted in HPI & below Physical Exam 2 Physical Exam: Gen: A&O 3 NAD, sarcopenia noted HEENT: NCAT, EOMI, not icteric. External ears normal. No rhinorrhea. Moist mucous membranes. Neck: Supple, full range of motion, no observable masses, No meningeal sign. Lungs: No Respiratory distress. CV: RRR, no edema. Abdomen: Soft, nondistended, No rebound tenderness. MSK: clean wounds on right fingers s/p amputation, foot wounds noted Skin: No rashes, petechiae, lesions. Normal color per patient. Neuro: Normal Gait, Grossly intact. Psych: Appropriate for situation. Results & Data Vital Signs (Past 12 Hours) Vital Signs Temp Pulse Pulse Pulse Resp BP BP 09/01/25 13:00 77 114/64 10/24/24 12:30 77 107/57 L 10/24/24 12:00 77 112/63 10/24/24 11:30 76 102/56 L 10/24/24 11:00 78 127/66 10/24/24 10:30 76 107/55 L 10/24/24 10:07 76 114/60 10/24/24 09:20 36.8 C 82 10/24/24 08:37 36.7 C 78 16 123/62 10/24/24 05:38 76 10/24/24 03:59 36.7 C 76 20 147/79 H Pulse Ox O2 Del Method 10/24/24 13:00 10/24/24 12:30 10/24/24 12:00 10/24/24 11:30 10/24/24 11:00 10/24/24 10:30 10/24/24 10:07 10/24/24 09:20 10/24/24 08:37 93 Room Air 10/24/24 05:38 10/24/24 03:59 97 Room Air Laboratory Results 10/24/24 06:58 10/24/24 06:58 (2) Sepsis Sepsis acute organ dysfunction status: with acute organ dysfunction Sepsis type: sepsis due to unspecified organism Severe sepsis acute organ dysfunction type: encephalopathy Severe sepsis shock status: without septic shock Qualified Code(s): A41.9 - Sepsis, unspecified organism; R65.20 - Severe sepsis without septic shock; G93.41 - Metabolic encephalopathy
[2024-10-24] MEDS: OPTIRAY 320 100ml IV ONE (16:42)
--- NOTE | 2024-10-24 17:54 | Hospitalist Progress Note ---
Date of Service October 24, 2024 Assessment & Plan (1) Sepsis: (2) Diabetes mellitus: (3) Diabetic peripheral neuropathy associated with type 2 diabetes mellitus: (4) Peripheral vascular disease: (5) ESRD on peritoneal dialysis: (6) HTN (hypertension): (7) S/P cardiac pacemaker procedure: (8) History of diabetic ulcer of foot: Plan This is a 64-year-old male with PMHx of end-stage renal disease on peritoneal dialysis, DM type II, CAD, HTN history of complete heart block, s/p pacemaker insertion, aortic valve, bicuspid, history of PE, peripheral vascular disease, s/p left great toe amputation,chronic left 2nd and 3rd toe wound, left well- healed heel ulcer, dry gangrene of right hand, who presents to the hospital with approximately 24 hours of increased confusion, lethargy, fever, chills/rigors 2/2 sepsis. Severe Sepsis, resolved MSSA bacteremia Left 2nd/3rd Digit Foot Osteomyelitis s/p amputation Right 4th/5th Digit Osteomyelitis s/p amputation -Foot MRI: OM of left 2nd and 3rd toes. -MRI L spine (done for concerns of reported back pain): no concerns for OM. -Admitting (10/10) Bl Cx: 4 out of 4 bottles growing MSSA -Repeat Bl cx 10/12: 1 of 4 bottle growing S. Aureus [Of note, pt underwent L toe amputation later morning of 10/12]. -Left foot operative Cx 10/12: MSSA, also growing Helococcus and Anaerococcus. -MRI Rt finger (4th and 5th) 10/13: osteomyelitis at the fourth and fifth distal phalanges. -Right ring finger operative Cx 10/14: staph and Enterobacter and cutibacterium growing, follow final results. Plan: -ID shaunna, recommends iv cefazolin daily. for 6 weeks from the date of last neg blood culture. ~Discussed with ID again 10/19 evening regarding additional growth in operative cultures, no new antibiotic coverage needed, continue with prior antibiotic plan. -Due to patient's increased need pt's states she won't be able to care at home ~Plan for peritoneal dialysis catheter removal and TDC placement prior to discharge -done today -patient and would like [facility] at this time, medically stable for discharge pending disposition, peer to peer called and denied, patient appeal ongoing -now on HD Blurry Vision -noted post operatively -no vision deficits -CT imaging with substantial vascular disease but no clear new infarct or hemorrhage Plan: -neurology consulted, appreciate recs -pending MRI of brain Leukocytosis -unclear etiology at this time -mild cough, xray without obvious infiltrate Plan: -monitor -check CT chest given uptrending leukocytosis and cough, will need dialysis tomorrow notified nephrology Hyponatremia -discussed with nephrology, give 1 L water restriction Back Pain -likely 2/2 deconditioning. vitamin D level low Plan: -increased vit D3 to 125 mcg daily -OOB few times a day and PT daily as able -c/w pain Mx, follow. c/w bowel regimen while on opiates.Repeat Vit D level in 2-3 months. -pain management consult, appreciate recs Elevated high sensitive troponin Likely demand ischemia in setting of sepsis -High sensitive troponin elevated to 249 on admission; -Echocardiogram obtained; reviewed ESRD on peritoneal dialysis - -Nephro on board for dialysis assistance DM II -SSI HTN -c/w home atenolol, torsemide and amlodipine. 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 04/2014 Carotid duplex showed < 50% carotid stenosis bilaterally (report scanned in [facility]). -06/2023 carotid duplex demonstrates less than 50% carotid stenosis b/l ICAs. Hx PE in 2010, treated with Coumadin for ~3 months. -No longer on anticoagulation I spent a total of 50 minutes in direct patient care, including [id number] time with the patient and/or family, reviewing medical records, ordering and reviewing diagnostic tests, and coordinating care with other healthcare providers. This time includes: history taking, physical examination, medical decision making, counseling, ECG interpretation, imaging interpretation, lab interpretation, orders, and education, excluding time spent in the performance of separately billed services. Admission and Anticipated Discharge Date Admission Date: October 10, 2024 Subjective Patient seen and examined at bedside. present as well. Patient still having cough, otherwise feels well. Discussed plan for rehab appeal pending. Review of Systems Review of Systems: CONSTITUTIONAL: Patient denies fevers, chills, sweats and weight changes. EARS, NOSE, AND THROAT: No difficulties with hearing. No symptoms of rhinitis or sore throat. CARDIOVASCULAR: Patient denies chest pains, palpitations, orthopnea and paroxysm al nocturnal dyspnea. RESPIRATORY: slight cough. GI: No nausea, vomiting, diarrhea, constipation, abdominal pain, hematochezia or melena. : No urinary hesitancy or dribbling. No nocturia or urinary frequency. No abnormal urethral discharge. MUSCULOSKELETAL: back pain NEUROLOGIC: No chronic headaches, no seizures. Patient denies numbness, tingling or weakness. PSYCHIATRIC: Patient denies problems with mood disturbance. No problems with anxiety. ENDOCRINE: No excessive urination or excessive thirst. DERMATOLOGIC: Patient denies any rashes or skin changes. Physical Exam Physical Exam: Gen: A&O 3 NAD, sarcopenia noted HEENT: NCAT, EOMI, not icteric. External ears normal. No rhinorrhea. Moist muc ous membranes. Neck: Supple, full range of motion, no observable masses, No meningeal sign. Lungs: No Respiratory distress. CV: RRR, no edema. Abdomen: Soft, nondistended, No rebound tenderness. MSK: clean wounds on right fingers s/p amputation, foot wounds noted Skin: No rashes, petechiae, lesions. Normal color per patient. Neuro: Normal Gait, Grossly intact. Psych: Appropriate for situation. Results & Data Results & Data Vital Signs (Past 12 Hours) Vital Signs Temp Pulse Pulse Pulse Resp BP BP 10/24/24 15:25 36.8 C 68 16 154/81 H 10/24/24 14:30 36.7 C 73 10/24/24 14:00 77 127/75 10/24/24 13:30 74 100/63 10/24/24 13:04 77 10/24/24 13:00 77 114/64 10/24/24 12:30 77 107/57 L 10/24/24 12:00 77 112/63 10/24/24 11:30 76 102/56 L 10/24/24 11:00 78 127/66 10/24/24 10:30 76 107/55 L 10/24/24 10:07 76 114/60 10/24/24 09:20 36.8 C 82 10/24/24 08:37 36.7 C 78 16 123/62 BP Pulse Ox O2 Del Method 10/24/24 15:25 94 Room Air 10/24/24 14:30 100/48 L 10/24/24 14:00 10/24/24 13:30 10/24/24 13:04 10/24/24 13:00 10/24/24 12:30 10/24/24 12:00 10/24/24 11:30 10/24/24 11:00 10/24/24 10:30 10/24/24 10:07 10/24/24 09:20 10/24/24 08:37 93 Room Air Laboratory Results -personally reviewed, uptrending leukcotysos of unclear etiology, Na stable at 124 Medications Administered Acetaminophen (Acetaminophen 325 Mg Tab) 650 mg PO Q4H PRN PRN Reason: Moderate Pain (Scale 4, 5, 6) Stop: 11/09/24 15:30 Last Admin: 10/23/24 00:32 Dose: 650 mg Documented By: Admin: 10/17/24 04:07 Dose: 650 mg Documented By: Admin: 10/10/24 20:32 Dose: 650 mg Documented By: SARAH Amlodipine Besylate (Amlodipine Besylate 5 Mg Tab) [facility] [place] Stop: 11/12/24 08:59 Last Admin: 10/24/24 14:32 Dose: 2.5 mg Documented By: Admin: 10/23/24 08:10 Dose: 2.5 mg Documented By: Admin: 10/22/24 09:14 Dose: 2.5 mg Documented By: NMJarad Admin: 10/21/24 12:01 Dose: Not Given Documented By: Admin: 10/20/24 08:22 Dose: 2.5 mg Documented By: Admin: 10/19/24 08:15 Dose: 2.5 mg Documented By: Admin: 10/18/24 08:12 Dose: 2.5 mg Documented By: Admin: 10/17/24 08:11 Dose: 2.5 mg Documented By: CARITO Co-signed By: ALMAS Admin: 10/16/24 08:14 Dose: 2.5 mg Documented By: Admin: 10/15/24 08:20 Dose: 2.5 mg Documented By: TB Co-signed By: ALMAS Admin: 10/14/24 08:16 Dose: 2.5 mg Documented By: TB Co-signed By: ALMAS Admin: 10/13/24 08:50 Dose: 2.5 mg Documented By: SirenaO Aspirin (Aspirin 81 Mg Ectab) 81 mg PO DAILY ESTHER Stop: 11/14/24 08:59 Last Admin: 10/24/24 14:36 Dose: 81 mg Documented By: Admin: 10/23/24 08:11 Dose: 81 mg Documented By: Admin: 10/22/24 09:15 Dose: 81 mg Documented By: NMJarad Admin: 10/21/24 12:00 Dose: 81 mg Documented By: Admin: 10/20/24 08:22 Dose: 81 mg Documented By: Admin: 10/19/24 08:14 Dose: 81 mg Documented By: Admin: 10/18/24 08:12 Dose: 81 mg Documented By: Admin: 10/17/24 08:10 Dose: 81 mg Documented By: TB Co-signed By: ALMAS Admin: 10/16/24 08:14 Dose: 81 mg Documented By: Admin: 10/15/24 09:17 Dose: 81 mg Documented By: TB Co-signed By: AAL Atenolol (Atenolol 50 Mg Tablet) 50 mg PO QAM [facility] Stop: 11/11/24 13:59 Last Admin: 10/24/24 14:31 Dose: 50 mg Documented By: Admin: 10/23/24 08:11 Dose: 50 mg Documented By: Admin: 10/22/24 09:15 Dose: 50 mg Documented By: Admin: 10/21/24 12:01 Dose: Not Given Documented By: Admin: 10/20/24 08:22 Dose: 50 mg Documented By: Admin: 10/19/24 08:14 Dose: 50 mg Documented By: Admin: 10/18/24 08:13 Dose: 50 mg Documented By: Admin: 10/17/24 08:11 Dose: 50 mg Documented By: TB Co-signed By: ALMAS Admin: 10/16/24 08:14 Dose: 50 mg Documented By: Admin: 10/15/24 08:20 Dose: 50 mg Documented By: TB Co-signed By: ALMAS Admin: 10/14/24 08:15 Dose: 50 mg Documented By: TB Co-signed By: ALMAS Admin: 10/13/24 10:05 Dose: 50 mg Documented By: SirenaO Admin: 10/12/24 15:20 Dose: 50 mg Documented By: ADILENE Atorvastatin Calcium (Atorvastatin 40 Mg Tab) 80 mg PO QPM ESTHER Stop: 11/09/24 20:59 Last Admin: 10/23/24 21:42 Dose: 80 mg Documented By: Admin: 10/22/24 20:34 Dose: 80 mg Documented By: Admin: 10/21/24 20:59 Dose: 80 mg Documented By: Admin: 10/20/24 21:01 Dose: 80 mg Documented By: Admin: 10/19/24 20:55 Dose: 80 mg Documented By: Admin: 10/18/24 22:09 Dose: 80 mg Documented By: Admin: 10/17/24 19:59 Dose: 80 mg Documented By: Admin: 10/16/24 20:53 Dose: 80 mg Documented By: Admin: 10/15/24 20:12 Dose: 80 mg Documented By: Admin: 10/14/24 22:04 Dose: 80 mg Documented By: Admin: 10/13/24 20:58 Dose: 80 mg Documented By: Admin: 10/12/24 20:27 Dose: 80 mg Documented By: Admin: 10/11/24 20:31 Dose: 80 mg Documented By: Admin: 10/10/24 20:25 Dose: 80 mg Documented By: SARAH Clopidogrel Bisulfate (Clopidogrel Bisulfate 75 Mg Tab) 75 mg PO HS ESTHER Stop: 11/09/24 20:59 Last Admin: 10/23/24 21:41 Dose: 75 mg Documented By: Admin: 10/22/24 20:34 Dose: 75 mg Documented By: Admin: 10/21/24 20:59 Dose: 75 mg Documented By: Admin: 10/20/24 21:02 Dose: 75 mg Documented By: Admin: 10/19/24 20:55 Dose: 75 mg Documented By: Admin: 10/18/24 22:08 Dose: 75 mg Documented By: Admin: 10/17/24 19:58 Dose: 75 mg Documented By: Admin: 10/16/24 20:54 Dose: 75 mg Documented By: Admin: 10/15/24 20:12 Dose: 75 mg Documented By: Admin: 10/14/24 22:04 Dose: 75 mg Documented By: Admin: 10/13/24 20:58 Dose: 75 mg Documented By: Admin: 10/12/24 20:27 Dose: 75 mg Documented By: Admin: 10/11/24 20:32 Dose: 75 mg Documented By: Admin: 10/10/24 20:24 Dose: 75 mg Documented By: SARAH Diclofenac Sodium (Diclofenac Sod 1% Gel 100 Gm Tube) 4 gm EXT Q6H ESTHER; Protocol Stop: 11/13/24 10:29 Last Admin: 10/24/24 16:30 Dose: 4 gm Documented By: Admin: 10/24/24 14:37 Dose: 4 gm Documented By: Admin: 10/24/24 04:11 Dose: Not Given Documented By: Admin: 10/23/24 21:36 Dose: Not Given Documented By: Admin: 10/23/24 16:05 Dose: Not Given Documented By: Admin: 10/23/24 11:48 Dose: Not Given Documented By: Admin: 10/23/24 03:58 Dose: Not Given Documented By: Admin: 10/22/24 20:35 Dose: 4 gm Documented By: Admin: 10/22/24 16:16 Dose: 4 gm Documented By: Admin: 10/22/24 12:05 Dose: Not Given Documented By: Admin: 10/22/24 05:18 Dose: 4 gm Documented By: Admin: 10/21/24 21:31 Dose: 4 gm Documented By: Admin: 10/21/24 17:16 Dose: 4 gm Documented By: Admin: 10/21/24 12:24 Dose: Not Given Documented By: Admin: 10/21/24 04:19 Dose: 4 gm Documented By: Admin: 10/20/24 23:12 Dose: 4 gm Documented By: Admin: 10/20/24 17:27 Dose: 4 gm Documented By: Admin: 10/20/24 12:15 Dose: 4 gm Documented By: Admin: 10/20/24 05:14 Dose: 4 gm Documented By: Admin: 10/19/24 20:56 Dose: 4 gm Documented By: Admin: 10/19/24 16:54 Dose: 4 gm Documented By: Admin: 10/19/24 11:31 Dose: 4 gm Documented By: Admin: 10/19/24 04:30 Dose: Not Given Documented By: Admin: 10/18/24 22:10 Dose: Not Given Documented By: Admin: 10/18/24 17:38 Dose: 4 gm Documented By: Admin: 10/18/24 12:05 Dose: 4 gm Documented By: Admin: 10/18/24 04:40 Dose: Not Given Documented By: Admin: 10/17/24 21:34 Dose: Not Given Documented By: Admin: 10/17/24 16:49 Dose: 4 gm Documented By: TB Co-signed By: ALMAS Admin: 10/17/24 12:10 Dose: 4 gm Documented By: TB Co-signed By: ALMAS Admin: 10/17/24 04:08 Dose: 4 gm Documented By: Admin: 10/16/24 22:54 Dose: Not Given Documented By: Admin: 10/16/24 16:22 Dose: 4 gm Documented By: Admin: 10/16/24 09:46 Dose: 4 gm Documented By: Admin: 10/16/24 05:18 Dose: 4 gm Documented By: Admin: 10/15/24 21:42 Dose: 4 gm Documented By: Admin: 10/15/24 16:57 Dose: 4 gm Documented By: TB Co-signed By: ALMAS Admin: 10/15/24 12:02 Dose: 4 gm Documented By: TB Co-signed By: ALMAS Admin: 10/15/24 04:20 Dose: 4 gm Documented By: Admin: 10/14/24 22:05 Dose: 4 gm Documented By: Admin: 10/14/24 16:45 Dose: 4 gm Documented By: TB Co-signed By: [facility] Admin: 10/14/24 11:03 Dose: 4 gm Documented By: TB Co-signed By: ALMAS Docusate Sodium (Docusate Sodium 100 Mg Cap) 100 mg PO BID ESTHER Stop: 11/11/24 20:59 Last Admin: 10/24/24 14:47 Dose: 100 mg Documented By: Admin: 10/23/24 21:45 Dose: 100 mg Documented By: Admin: 10/23/24 08:12 Dose: Not Given Documented By: Admin: 10/22/24 20:34 Dose: 100 mg Documented By: Admin: 10/22/24 09:15 Dose: Not Given Documented By: Admin: 10/21/24 20:59 Dose: 100 mg Documented By: Admin: 10/21/24 12:01 Dose: Not Given Documented By: Admin: 10/20/24 21:01 Dose: 100 mg Documented By: Admin: 10/20/24 08:22 Dose: 100 mg Documented By: Admin: 10/19/24 20:56 Dose: 100 mg Documented By: Admin: 10/19/24 08:13 Dose: 100 mg Documented By: Admin: 10/19/24 01:37 Dose: Not Given Documented By: Admin: 10/18/24 08:11 Dose: 100 mg Documented By: Admin: 10/17/24 19:59 Dose: 100 mg Documented By: Admin: 10/17/24 08:12 Dose: Not Given Documented By: Admin: 10/16/24 20:58 Dose: 100 mg Documented By: Admin: 10/16/24 08:14 Dose: Not Given Documented By: Admin: 10/15/24 20:12 Dose: 100 mg Documented By: Admin: 10/15/24 08:49 Dose: Not Given Documented By: Admin: 10/14/24 22:04 Dose: 100 mg Documented By: Admin: 10/14/24 08:16 Dose: Not Given Documented By: Admin: 10/13/24 20:57 Dose: 100 mg Documented By: Admin: 10/13/24 08:51 Dose: 100 mg Documented By: Admin: 10/12/24 20:28 Dose: Not Given Documented By: AKP Erythromycin (Erythromycin Op Oint 5 Mg/Gm 3.5 Gm Tube) 1 appln OP TID ESTHER Stop: 10/31/24 13:59 Last Admin: 10/24/24 14:37 Dose: 1 appln Documented By: Admin: 10/24/24 14:31 Dose: Not Given Documented By: Admin: 10/23/24 21:40 Dose: 1 appln Documented By: Admin: 10/23/24 14:22 Dose: 1 appln Documented By: Admin: 10/23/24 08:12 Dose: 1 appln Documented By: Admin: 10/22/24 20:34 Dose: 1 appln Documented By: Admin: 10/22/24 14:52 Dose: 1 appln Documented By: Admin: 10/22/24 09:16 Dose: 1 appln Documented By: Admin: 10/21/24 21:29 Dose: 1 appln Documented By: Admin: 10/21/24 17:16 Dose: Not Given Documented By: Admin: 10/21/24 11:13 Dose: 1 appln Documented By: SED Gabapentin (Gabapentin 600 Mg Tab) 600 mg PO TID ESTHER Stop: 11/09/24 15:30 Last Admin: 10/24/24 14:31 Dose: 600 mg Documented By: Admin: 10/24/24 14:23 Dose: Not Given Documented By: Admin: 10/23/24 21:41 Dose: 600 mg Documented By: Admin: 10/23/24 14:22 Dose: 600 mg Documented By: Admin: 10/23/24 08:10 Dose: 600 mg Documented By: Admin: 10/22/24 20:34 Dose: 600 mg Documented By: Admin: 10/22/24 14:52 Dose: 600 mg Documented By: Admin: 10/22/24 09:17 Dose: 600 mg Documented By: Admin: 10/21/24 20:59 Dose: 600 mg Documented By: Admin: 10/21/24 16:19 Dose: Not Given Documented By: Admin: 10/21/24 12:00 Dose: 600 mg Documented By: Admin: 10/20/24 21:01 Dose: 600 mg Documented By: Admin: 10/20/24 12:15 Dose: 600 mg Documented By: Admin: 10/20/24 08:22 Dose: 600 mg Documented By: Admin: 10/19/24 20:56 Dose: 600 mg Documented By: Admin: 10/19/24 12:02 Dose: 600 mg Documented By: Admin: 10/19/24 08:14 Dose: 600 mg Documented By: Admin: 10/18/24 22:08 Dose: 600 mg Documented By: Admin: 10/18/24 14:34 Dose: 600 mg Documented By: Admin: 10/18/24 08:14 Dose: 600 mg Documented By: Admin: 10/17/24 19:58 Dose: 600 mg Documented By: Admin: 10/17/24 14:08 Dose: 600 mg Documented By: TB Co-signed By: LCS Admin: 10/17/24 08:10 Dose: 600 mg Documented By: TB Co-signed By: ALMAS Admin: 10/16/24 20:54 Dose: 600 mg Documented By: Admin: 10/16/24 13:31 Dose: 600 mg Documented By: Admin: 10/16/24 08:15 Dose: 600 mg Documented By: Admin: 10/15/24 20:12 Dose: 600 mg Documented By: Admin: 10/15/24 14:15 Dose: 600 mg Documented By: TB Co-signed By: ALMAS Admin: 10/15/24 08:21 Dose: 600 mg Documented By: TB Co-signed By: ALMAS Admin: 10/14/24 22:04 Dose: 600 mg Documented By: Admin: 10/14/24 16:43 Dose: 600 mg Documented By: TB Co-signed By: ALMAS Admin: 10/14/24 08:15 Dose: 600 mg Documented By: TB Co-signed By: LCS Admin: 10/13/24 20:58 Dose: 600 mg Documented By: Admin: 10/13/24 13:56 Dose: 600 mg Documented By: Admin: 10/13/24 08:50 Dose: 600 mg Documented By: Admin: 10/12/24 20:27 Dose: 600 mg Documented By: Admin: 10/12/24 14:02 Dose: 600 mg Documented By: Admin: 10/12/24 08:08 Dose: 600 mg Documented By: Admin: 10/11/24 20:32 Dose: 600 mg Documented By: Admin: 10/11/24 13:38 Dose: 600 mg Documented By: Admin: 10/11/24 08:54 Dose: 600 mg Documented By: Admin: 10/10/24 20:24 Dose: 600 mg Documented By: Admin: 10/10/24 16:25 Dose: 600 mg Documented By: EDD Heparin Sodium (Porcine) (Heparin Sod 5,000 Unit/0.5 Ml Vial) 5,000 units SQ Q8 ESTHER Stop: 11/10/24 13:59 Last Admin: 10/24/24 14:47 Dose: 5,000 units Documented By: Admin: 10/24/24 05:07 Dose: 5,000 units Documented By: Admin: 10/23/24 21:34 Dose: 5,000 units Documented By: Admin: 10/23/24 14:21 Dose: 5,000 units Documented By: Admin: 10/23/24 05:57 Dose: 5,000 units Documented By: Admin: 10/22/24 20:34 Dose: 5,000 units Documented By: Admin: 10/22/24 14:52 Dose: 5,000 units Documented By: Admin: 10/22/24 06:22 Dose: 5,000 units Documented By: Admin: 10/21/24 21:00 Dose: 5,000 units Documented By: Admin: 10/21/24 16:20 Dose: Not Given Documented By: Admin: 10/21/24 06:24 Dose: 5,000 units Documented By: Admin: 10/20/24 21:01 Dose: 5,000 units Documented By: Admin: 10/20/24 12:15 Dose: 5,000 units Documented By: Admin: 10/20/24 05:14 Dose: 5,000 units Documented By: Admin: 10/19/24 20:57 Dose: 5,000 units Documented By: Admin: 10/19/24 12:02 Dose: 5,000 units Documented By: Admin: 10/19/24 06:25 Dose: 5,000 units Documented By: Admin: 10/18/24 22:09 Dose: 5,000 units Documented By: Admin: 10/18/24 14:34 Dose: 5,000 units Documented By: Admin: 10/18/24 05:52 Dose: 5,000 units Documented By: Admin: 10/17/24 21:34 Dose: 5,000 units Documented By: Admin: 10/17/24 13:59 Dose: 5,000 units Documented By: TB Co-signed By: LCS Admin: 10/17/24 05:51 Dose: 5,000 units Documented By: Admin: 10/16/24 22:54 Dose: Not Given Documented By: Admin: 10/16/24 13:31 Dose: 5,000 units Documented By: Admin: 10/16/24 05:31 Dose: 5,000 units Documented By: Admin: 10/15/24 21:41 Dose: 5,000 units Documented By: Admin: 10/15/24 14:15 Dose: 5,000 units Documented By: TB Co-signed By: LCS Admin: 10/15/24 06:37 Dose: 5,000 units Documented By: Admin: 10/14/24 22:05 Dose: 5,000 units Documented By: Admin: 10/13/24 13:58 Dose: 5,000 units Documented By: Admin: 10/13/24 06:25 Dose: 5,000 units Documented By: Admin: 10/12/24 20:31 Dose: 5,000 units Documented By: Admin: 10/12/24 14:02 Dose: 5,000 units Documented By: Admin: 10/12/24 05:45 Dose: 5,000 units Documented By: Admin: 10/11/24 21:09 Dose: 5,000 units Documented By: Admin: 10/11/24 13:38 Dose: 5,000 units Documented By: KTS Cefazolin Sodium (Ancef 1000mg) 1,000 mg in 7.5 mls @ 2.5 mls/min IV Q24H ESTHER Stop: 11/22/24 15:59 Last Admin: 10/24/24 16:27 Dose: 2.5 mls/min Documented By: Admin: 10/23/24 16:04 Dose: 2.5 mls/min Documented By: Admin: 10/22/24 16:15 Dose: 2.5 mls/min Documented By: Admin: 10/21/24 17:16 Dose: 2.5 mls/min Documented By: Admin: 10/20/24 17:27 Dose: 2.5 mls/min Documented By: Admin: 10/19/24 16:53 Dose: 2.5 mls/min Documented By: Admin: 10/18/24 17:15 Dose: 2.5 mls/min Documented By: Admin: 10/17/24 16:49 Dose: 2.5 mls/min Documented By: TB Co-signed By: LCS Admin: 10/16/24 16:22 Dose: 2.5 mls/min Documented By: Admin: 10/15/24 16:57 Dose: 2.5 mls/min Documented By: TB Co-signed By: LCS Admin: 10/14/24 16:46 Dose: 2.5 mls/min Documented By: TB Co-signed By: LCS Admin: 10/13/24 15:50 Dose: 2.5 mls/min Documented By: TB Co-signed By: OO Admin: 10/12/24 15:20 Dose: 2.5 mls/min Documented By: Admin: 10/11/24 17:43 Dose: 2.5 mls/min Documented By: KTS Insulin Aspart (Insulin Aspart Per Unit Charge) 0 units SC ACHS ESTHER Stop: 11/13/24 05:59 Last Admin: 10/24/24 17:36 Dose: 15 units Documented By: DANA Co-signed By: AMY Admin: 10/24/24 14:47 Dose: 12 units Documented By: DANA Co-signed By: TIMUR Admin: 10/24/24 14:24 Dose: Not Given Documented By: BJLoni Admin: 10/23/24 21:35 Dose: 6 units Documented By: ROBERTK Co-signed By: AJIME Admin: 10/23/24 18:28 Dose: 14 units Documented By: SAMIRA Co-signed By: HUY Admin: 10/23/24 12:28 Dose: 13 units Documented By: RLJoyce Co-signed By: HUY Admin: 10/23/24 09:04 Dose: 8 units Documented By: SAMIRA Co-signed By: AMY Admin: 10/22/24 20:34 Dose: 1 units Documented By: LOUISE Co-signed By: ERNESTO Admin: 10/22/24 17:49 Dose: 11 units Documented By: RLB Co-signed By: JOSE CARLOS Admin: 10/22/24 12:23 Dose: 12 units Documented By: NMH Co-signed By: ABBY Admin: 10/22/24 09:13 Dose: 6 units Documented By: NMH Co-signed By: WS Admin: 10/21/24 20:58 Dose: 2 units Documented By: SANDOR Co-signed By: BRITTNEY Admin: 10/21/24 17:17 Dose: Not Given Documented By: Admin: 10/21/24 13:44 Dose: Not Given Documented By: Admin: 10/21/24 07:10 Dose: Not Given Documented By: Admin: 10/20/24 21:02 Dose: 1 units Documented By: SANDOR Co-signed By: BRITTNEY Admin: 10/20/24 17:27 Dose: 11 units Documented By: JANINE Co-signed By: OO Admin: 10/20/24 12:15 Dose: 8 units Documented By: CA Co-signed By: ESG Admin: 10/20/24 08:19 Dose: 7 units Documented By: JANINE Co-signed By: MES Admin: 10/19/24 20:57 Dose: 1 units Documented By: SAM Co-signed By: MARCIA Admin: 10/19/24 16:53 Dose: 7 units Documented By: CA Co-signed By: ARMANDO Admin: 10/19/24 12:01 Dose: 10 units Documented By: CA Co-signed By: COLE Admin: 10/19/24 08:13 Dose: 6 units Documented By: CA Co-signed By: SAM(2) Admin: 10/18/24 22:10 Dose: 7 units Documented By: KIKE Co-signed By: JOSE Admin: 10/18/24 17:15 Dose: 14 units Documented By: ALMAS Co-signed By: JAIME(2) Admin: 10/18/24 12:02 Dose: 9 units Documented By: ALMAS Co-signed By: ANDRE Admin: 10/18/24 08:10 Dose: 8 units Documented By: ALMAS Co-signed By: ANDRE Admin: 10/17/24 21:33 Dose: 5 units Documented By: DAVID Co-signed By: JOSE Admin: 10/17/24 16:49 Dose: Not Given Documented By: Admin: 10/17/24 12:10 Dose: 11 units Documented By: CARITO Co-signed By: ALMAS Admin: 10/17/24 08:08 Dose: 9 units Documented By: CARITO Co-signed By: ALMAS Admin: 10/16/24 20:58 Dose: 7 units Documented By: JINNY Co-signed By: OS Admin: 10/16/24 17:02 Dose: Not Given Documented By: Admin: 10/16/24 12:03 Dose: 12 units Documented By: ALMAS Co-signed By: JANINE Admin: 10/16/24 08:12 Dose: 10 units Documented By: ALMAS Co-signed By: NADER Admin: 10/15/24 21:41 Dose: 1 units Documented By: SANDOR Co-signed By: [id number] Admin: 10/15/24 16:56 Dose: 7 units Documented By: CARITO Co-signed By: ALMAS Admin: 10/15/24 12:02 Dose: 12 units Documented By: CARITO Co-signed By: ALMAS Admin: 10/15/24 08:21 Dose: 7 units Documented By: CARITO Co-signed By: ALMAS Admin: 10/14/24 22:04 Dose: 2 units Documented By: SANDOR Co-signed By: REMY Admin: 10/14/24 17:47 Dose: 6 units Documented By: CARITO Co-signed By: ALMAS Insulin Glargine (Lantus Per Unit Charge) 15 units SC BID [facility] Stop: 11/22/24 08:59 Last Admin: 10/24/24 14:47 Dose: 15 units Documented By: DANA Co-signed By: TIMUR Admin: 10/23/24 21:35 Dose: 15 units Documented By: MARSHA Co-signed By: JAIME Admin: 10/23/24 09:05 Dose: 15 units Documented By: SAMIRA Co-signed By: AMY Lidocaine (Lidocaine 5% 1 Patch) 1 patch TD QAM [facility] Stop: 11/18/24 13:44 Last Admin: 10/24/24 14:36 Dose: 1 patch Documented By: Admin: 10/23/24 08:12 Dose: 1 patch Documented By: Admin: 10/22/24 09:17 Dose: 1 patch Documented By: NMJarad Admin: 10/21/24 12:25 Dose: Not Given Documented By: Admin: 10/20/24 08:23 Dose: 1 patch Documented By: Admin: 10/19/24 16:50 Dose: 1 patch Documented By: JANINE Miscellaneous (Remove Lidoderm Patch) 1 each N/A DAILY@2100 [facility] Stop: 11/18/24 20:59 Last Admin: 10/23/24 21:36 Dose: 1 each Documented By: Admin: 10/22/24 20:35 Dose: 1 each Documented By: Admin: 10/21/24 20:59 Dose: 1 each Documented By: Admin: 10/20/24 21:01 Dose: 1 each Documented By: Admin: 10/19/24 20:57 Dose: 1 each Documented By: SAM Ondansetron HCl (Ondansetron Inj 2 Mg/Ml 2 Ml Vial) 4 mg IV Q4H PRN PRN Reason: Nausea And Vomiting Stop: 11/09/24 15:30 Last Admin: 10/16/24 12:21 Dose: 4 mg Documented By: ALMAS Oxycodone HCl (Oxycodone Hcl Ir 5 Mg Tab (Immediate Release)) 5 mg PO Q6H PRN PRN Reason: Pain Stop: 10/27/24 13:00 Last Admin: 10/24/24 09:14 Dose: 5 mg Documented By: Admin: 10/23/24 05:57 Dose: 5 mg Documented By: Admin: 10/22/24 20:33 Dose: 5 mg Documented By: Admin: 10/22/24 03:07 Dose: 5 mg Documented By: Admin: 10/21/24 04:18 Dose: 5 mg Documented By: Admin: 10/20/24 21:01 Dose: 5 mg Documented By: Admin: 10/20/24 08:21 Dose: 5 mg Documented By: Admin: 10/19/24 21:59 Dose: 5 mg Documented By: Admin: 10/19/24 13:00 Dose: 5 mg Documented By: Admin: 10/19/24 01:35 Dose: 5 mg Documented By: Admin: 10/18/24 17:15 Dose: 5 mg Documented By: Admin: 10/18/24 09:36 Dose: 5 mg Documented By: Admin: 10/17/24 11:10 Dose: 5 mg Documented By: TB Co-signed By: ALMAS Admin: 10/17/24 04:07 Dose: 5 mg Documented By: Admin: 10/16/24 07:40 Dose: 5 mg Documented By: Admin: 10/15/24 17:03 Dose: 5 mg Documented By: TB Co-signed By: ALMAS Admin: 10/15/24 10:19 Dose: 5 mg Documented By: TB Co-signed By: ALMAS Admin: 10/15/24 04:18 Dose: 5 mg Documented By: Admin: 10/14/24 16:52 Dose: 5 mg Documented By: TB Co-signed By: ALMAS Admin: 10/14/24 10:24 Dose: 5 mg Documented By: CARITO Co-signed By: ALMAS Polyethylene Glycol (Polyethylene (Miralax) 17 Gm Pack) 17 gm PO DAILY [facility] Stop: 11/16/24 13:44 Last Admin: 10/24/24 14:37 Dose: 17 gm Documented By: Admin: 10/23/24 08:15 Dose: Not Given Documented By: Admin: 10/22/24 09:16 Dose: Not Given Documented By: Admin: 10/21/24 12:24 Dose: Not Given Documented By: Admin: 10/20/24 08:22 Dose: 17 gm Documented By: Admin: 10/19/24 08:13 Dose: 17 gm Documented By: Admin: 10/18/24 08:11 Dose: 17 gm Documented By: Admin: 10/17/24 13:59 Dose: 17 gm Documented By: TB Co-signed By: ALMAS Sennosides (Senna 8.6 Mg Tab) 8.6 mg PO QAM [facility] Stop: 11/18/24 13:44 Last Admin: 10/24/24 14:47 Dose: 8.6 mg Documented By: Admin: 10/23/24 08:15 Dose: 8.6 mg Documented By: Admin: 10/22/24 09:16 Dose: Not Given Documented By: Admin: 10/21/24 12:24 Dose: Not Given Documented By: Admin: 10/20/24 08:22 Dose: 8.6 mg Documented By: Admin: 10/19/24 16:50 Dose: 8.6 mg Documented By: JANINE Torsemide (Torsemide 100 Mg Tab) 100 mg PO DAILY [facility] Stop: 11/12/24 08:59 Last Admin: 10/24/24 14:35 Dose: 100 mg Documented By: Admin: 10/23/24 08:11 Dose: 100 mg Documented By: Admin: 10/22/24 09:17 Dose: 100 mg Documented By: Admin: 10/21/24 12:02 Dose: Not Given Documented By: Admin: 10/20/24 08:22 Dose: 100 mg Documented By: Admin: 10/19/24 08:15 Dose: 100 mg Documented By: Admin: 10/18/24 08:14 Dose: 100 mg Documented By: Admin: 10/17/24 08:10 Dose: 100 mg Documented By: TB Co-signed By: LCS Admin: 10/16/24 08:15 Dose: 100 mg Documented By: Admin: 10/15/24 08:21 Dose: 100 mg Documented By: TB Co-signed By: LCS Admin: 10/14/24 08:15 Dose: 100 mg Documented By: TB Co-signed By: LCS Admin: 10/13/24 08:49 Dose: 100 mg Documented By: OO Vitamin D (Cholecalciferol 125 Mcg (5,000 Units) Tab) 125 mcg PO QAM [facility] Stop: 11/14/24 13:59 Last Admin: 10/24/24 14:35 Dose: 125 mcg Documented By: BJLoni Admin: 10/23/24 08:11 Dose: 125 mcg Documented By: Admin: 10/22/24 09:15 Dose: 125 mcg Documented By: Admin: 10/21/24 12:01 Dose: 125 mcg Documented By: Admin: 10/20/24 08:23 Dose: 125 mcg Documented By: Admin: 10/19/24 08:14 Dose: 125 mcg Documented By: Admin: 10/18/24 08:13 Dose: 125 mcg Documented By: Admin: 10/17/24 08:10 Dose: 125 mcg Documented By: TB Co-signed By: LCS Admin: 10/16/24 09:46 Dose: 125 mcg Documented By: Admin: 10/15/24 14:30 Dose: 125 mcg Documented By: TB Co-signed By: JANINE (1) Sepsis Sepsis acute organ dysfunction status: with acute organ dysfunction Sepsis type: sepsis due to unspecified organism Severe sepsis acute organ dysfunction type: encephalopathy Severe sepsis shock status: without septic shock Qualified Code(s): A41.9 - Sepsis, unspecified organism; R65.20 - Severe sepsis without septic shock; G93.41 - Metabolic encephalopathy
--- NOTE | 2024-10-24 18:06 | CT Scan Report ---
Clinical history: Cough and leukocytosis Technique: Axial computed tomography images were obtained of the chest after the administration of intravenous contrast Comparison is made to the prior CT dated 10/10/2024 Findings: There is a 4-5 mm right lower lobe larger than previous and measured 3 mm. There is a nearby new 2-3 mm nodule. There is a new 2 3 mm right upper lobe nodule. A 5 mm left upper lobe nodule appears increased in size. A 3 mm left upper lobe nodule has slightly increased in size as well. There are 2 unchanged 2 mm left upper lobe nodules. There is a 4 mm lingular nodule that appears enlarged. There is no pleural effusion or pneumothorax. There has slightly worsened multifocal areas of centrilobular interstitial infiltrate in the left upper lobe and bilateral lower lobes. There is a calcified granuloma in the right middle lobe. There is mild emphysema. There is linear atelectasis or scar in the right lower lobe There are mildly enlarged right hilar lymph nodes, measuring up to 1.5 cm. There are small subcentimeter mediastinal lymph nodes. The thoracic aorta appears unremarkable with no sign of aneurysm or dissection. There is no pericardial effusion. There is an aortic valve replacement. Postsurgical changes are seen of coronary artery bypass grafting surgery. There is a left chest wall pacemaker device The spleen is enlarged measuring 16 cm. No fracture is seen. No focal osseous lesion is evident Impression: 1. Slightly worsened centrilobular interstitial infiltrates in the left upper lobe and bilateral lower lobes. This could be due to an atypical inflammatory process such as JEM infection 2. Interval increase in size and number of small pulmonary nodules. These may be inflammatory but are indeterminate in nature. A follow-up chest CT is recommended in 6 months 3. Emphysema 4. Mild right hilar adenopathy, nonspecific in nature 5. Splenomegaly ACT 112: Positive. There are findings on this exam that require communication between the performing entity and the patient following Patient Test Result Information Act ([place] ACT 112) guidelines. Electronically signed by Mak Park 10-24-2024 6:06 PM
[2024-10-25 06:59] LABS: Hematocrit (blood only) 25.9 % (42.0-52.0); Hemoglobin 8.7 g/dl (14.0-18.0); Mean Corpuscular Hemoglobin 31.4 pg (25.0-34.0); Mean Corpuscular Volume 93.5 fL (80.0-100.0); Platelet Count 239 K/uL (130-400); RDW Standard Deviation 48.4 fL (36.4-46.3); Red Blood Count 2.77 M/uL (4.70-6.10); White Blood Count 11.10 K/ul (4.8-10.8)
[2024-10-25 07:28] LABS: Anion Gap 8.0 (3-11); Blood Urea Nitrogen 50.0 mg/dl (6-23); Calcium 8.4 mg/dl (8.6-10.3); Carbon Dioxide 27.0 mmol/L (21-32); Chloride 95.0 mmol/L (98-107); Creatinine Clr Calc Pharmacy 17.5 ml/min; Glucose 105.0 mg/dl (70-99(Fasting)); Potassium 3.8 mmol/L (3.5-5.1); Sodium 130.0 mmol/L (136-145)
--- NOTE | 2024-10-25 11:24 | Magnetic Resonance Report ---
MRI OF THE BRAIN WITHOUT IV CONTRAST CLINICAL HISTORY: History of left frontal infarct. Possible new stroke. COMPARISON STUDY: MRI the brain dated 05/12/2013, CT angiography of the head dated 10/21/2024 TECHNIQUE: MRI of the brain was performed utilizing various T1 and T2-weighted sequences in the axial , sagittal, and coronal planes. IV contrast was not administered for this examination. FINDINGS: No intra or extra-axial mass lesions are visualized. Axial diffusion-weighted images reveal no evidence of acute or subacute infarction. Mild ventricular dilatation is likely secondary to volume loss. There is an old left posterior frontal infarct. There are multiple old lacunar infarcts in the cerebe llar hemispheres. There is an old left thalamic lacunar infarct. Gradient echo images reveal a punctate focus of decreased signal within the right medial parietal dayan sondra, likely representing a tiny old hemorrhage or calcification. There is cerebellar atrophy. There is moderately extensive confluent foci of increased T2 signal within the periventricular white matter likely on a small vessel basis. IMPRESSION: 1. Progressive white matter disease likely on a small vessel ischemic basis 2. Multiple old cerebellar lacunar infarcts, old left thalamic lacunar infarct and old left frontal i nfarct. 3. No acute infarcts identified 4. Progressive atrophy. Mild ventricular dilatation likely secondary to volume loss ACT 112: Negative or not required by law. Electronically signed by: Jean-Paul Barraza M.D. 10/25/2024 11:23 AM
[2024-10-25] MEDS ORDERED: SODIUM CHLORIDE 0.9% 1,000 ML IV PRN (12:37)
--- NOTE | 2024-10-25 12:41 | Nephrology Progress Note ---
Date of Service October 25, 2024 Assessment & Plan (1) ESRD on peritoneal dialysis: Plan: patient does not have much residual renal function left as he makes only about 500ml of urine per day, has made as much as 1.2L on one day at least this admission he has been doing peritoneal dialysis through a nocturnal cycler at home for the last few months. Previously was on hemodialysis and has now changed back to HD for foreseeable future not only for rehab but b/c of carepartner fatigue/health issues ESRD secondary to diabetes hypertension and chronic diffuse vascular disease. fluid status acceptable labs appear acceptable though ongoing hyponatremia 130 today and hgb 8.7 PD cath removed and C VAC placed on October 21 Undergoing chronic HD now since 10/21 and awaiting on rehab dispo >>orders entered for HD tomorrow w/ aggressive UF - For HD tomorrow-- UF as tolerated to keep SBP> 100, low sodium-- keep on 1.2 lit FR while inpatient -->needs IV abx for 6 weeks. (2) Sepsis: Plan: PD fluid negative for peritonitis. No need of IP abx . ID eval done. MSSA bacteremia on 10/12 admission. ANI--negative. getting Some Amputations. Blood C/s from 10/14 so far negative. 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 for Cefazolin for 6 weeks. Admission and Anticipated Discharge Date Admission Date: October 10, 2024 Subjective waiting on insurance coverage/appeal for IP rehab; no sob, no n/v/d; tolerated 3.3L UF yesterday; no further vistoin changes Review of Systems 2 Review of Systems: All systems reviewed & are unremarkable except as noted in Subjective Physical Exam 2 Constitutional: well developed and well nourished Eyes: EOM intact bilaterally ENMT: Mouth: + dry oral mucous membranes Respiratory: normal respiratory effort Auscultation: + diminished lung sounds Cardiovascular: Rate/Rhythm: regular rate and regular rhythm Extremities: n o edema Gastrointestinal (Abdomen): Inspection/Auscultation: normal bowel sounds and + abdominal surgical drain present (PD cath) Percussion/Palpation: abdomen soft; abdomen nontender Musculoskeletal: Extremities: strength 5/5 throughout Skin: no rashes, warm and dry Results & Data Vital Signs (Past 12 Hours) Vital Signs Temp Pulse Pulse Pulse Resp BP Pulse Ox 10/25/24 12:03 36.7 C 78 16 147/74 H 97 10/25/24 08:35 36.3 C L 73 16 132/73 100 10/25/24 05:47 75 10/25/24 03:07 36.9 C 79 18 118/61 94 O2 Del Method 10/25/24 12:03 Room Air 10/25/24 08:35 Room Air 10/25/24 05:47 10/25/24 03:07 Room Air Laboratory Results 10/25/24 06:34 10/25/24 06:34 Diagnostic Findings MRI > no acute infarct (2) Sepsis Sepsis acute organ dysfunction status: with acute organ dysfunction Sepsis type: sepsis due to unspecified organism Severe sepsis acute organ dysfunction type: encephalopathy Severe sepsis shock status: without septic shock Qualified Code(s): A41.9 - Sepsis, unspecified organism; R65.20 - Severe sepsis without septic shock; G93.41 - Metabolic encephalopathy
--- NOTE | 2024-10-25 13:07 | Pharmacy Report ---
Pharmacy Glycemic Short Note 2 - Date of Service October 25, 2024 - Glycemic Short BSG Results (Last 24 hours): 10/24/24 10/24/24 10/24/24 14:26 16:57 19:58 Glucose POC Glucose 182 H 201 H 262 H 10/25/24 10/25/24 10/25/24 06:34 08:10 11:31 Glucose 105 H POC Glucose 129 H 178 H OUTPATIENT ANTIDIABETIC REGIMEN: * NovoLog 5 units SQ QAM, 10 units @ noon, 10 units in afternoon, CF 20 >140mg/dL * Lantus 20 untis SQ BID * HbA1c is unreliable in ESRD patients d/t interactions between the A1c analyzing technique and high levels of urea in ESRD, reduced RBC life span, iron deficiency anemia, and EPO administration. HbA1c > 7.5% in ESRD patient may overestimate the extent of hyperglycemia in ESRD patients. ASSESSMENT: 10/25 * Patient received total of 64 units of insulin yesterday of which 30 units were basal * Fasting BSG within range 105 mg/dL - no change * Continue same CF/CR for now 10/23 * Otto received a total of 50 units of SQ insulin yesterday (20 units basal + 30 units bolus). * Fasting BSG = 174 mg/dL today. Oral intake improved. Will resume BID dosing of Lantus. * HD catheter placed on 10/21. Patient had 4 hour HD session that day. 10/21: * BSGs [phone]/dL the last 24h. Received 40units of basal and 27 units of bolus insulin yesterday. * NPO this AM for HD cath placement and remains NPO this afternoon. AM Lantus held by nursing this morning given fasting BSG in 90s and prolonged NPO status. * Resume Lantus 20 units tonight and then reassess basal in AM. No change to Novolog. 10/20: * Patient received 64 units of insulin yesterday, 40 of which were basal. BSGs have been well controlled over the past 24 hours: [phone] mg/dL * Fasting BSG remains adequate at 115 mg/dL. * Patient is ordered and tolerating a diet. * Plan to transition to HD tomorrow from PD. 10/18 * Patient has received 25 units BID per scale x last 3 days- fasting within range, will schedule * BSGs slightly lower than goal with lunch/dinner yesterday but not hypoglycemic. Patient has refused with insulin with dinner leading to high HS blood sugar. Will loosen carb ratio slightly to try and maintain BSG 110-140 mg/dL 10/14 * NPO for OR this AM * Fasting BSG elevated this AM. Increased lantus sliding scale. * Tightened CF and CR 2nd elevated post-prandial glucose. 10/13 * Diet resumed this AM after ANI * Fasting BSG elevated. Will increase Lantus * One post-prandial BSG elevated yesterday after tightening Novolog parameters. Will not make further adjustments for now, but may consider tightening Novolog parameters if post-prandial BSG's remain elevated. PLAN FOR INPATIENT GLYCEMIC CONTROL: * Hold outpatient oral diabetes medications * Basal insulin * Lantus 15 units SQ BID * Bolus insulin * NovoLog per scale ACHS or Q6hrs while NPO * Goal Range: Low 110 mg/dL - High 140 mg/dL * Correction Factor: 20 mg/dL/unit * Nutritional / Prandial insulin per carb ratio of 1 unit per 7 grams CHO consumed
--- NOTE | 2024-10-25 17:08 | Hospitalist Progress Note ---
Date of Service October 25, 2024 Assessment & Plan (1) Sepsis: (2) Diabetes mellitus: (3) Diabetic peripheral neuropathy associated with type 2 diabetes mellitus: (4) Peripheral vascular disease: (5) ESRD on peritoneal dialysis: (6) HTN (hypertension): (7) S/P cardiac pacemaker procedure: (8) History of diabetic ulcer of foot: Plan This is a 64-year-old male with PMHx of end-stage renal disease on peritoneal dialysis, DM type II, CAD, HTN history of complete heart block, s/p pacemaker insertion, aortic valve, bicuspid, history of PE, peripheral vascular disease, s/p left great toe amputation,chronic left 2nd and 3rd toe wound, left well- healed heel ulcer, dry gangrene of right hand, who presents to the hospital with approximately 24 hours of increased confusion, lethargy, fever, chills/rigors 2/2 sepsis. Severe Sepsis, resolved MSSA bacteremia Left 2nd/3rd Digit Foot Osteomyelitis s/p amputation Right 4th/5th Digit Osteomyelitis s/p amputation -Foot MRI: OM of left 2nd and 3rd toes. -MRI L spine (done for concerns of reported back pain): no concerns for OM. -Admitting (10/10) Bl Cx: 4 out of 4 bottles growing MSSA -Repeat Bl cx 10/12: 1 of 4 bottle growing S. Aureus [Of note, pt underwent L toe amputation later morning of 10/12]. -Left foot operative Cx 10/12: MSSA, also growing Helococcus and Anaerococcus. -MRI Rt finger (4th and 5th) 10/13: osteomyelitis at the fourth and fifth distal phalanges. -Right ring finger operative Cx 10/14: staph and Enterobacter and cutibacterium growing, follow final results. Plan: -ID shaunna, recommends iv cefazolin daily. for 6 weeks from the date of last neg blood culture. ~Discussed with ID again 10/19 evening regarding additional growth in operative cultures, no new antibiotic coverage needed, continue with prior antibiotic plan. -Due to patient's increased need pt's states she won't be able to care at home ~Plan for peritoneal dialysis catheter removal and TDC placement prior to discharge -done today -patient and would like [facility] at this time, medically stable for discharge pending disposition, peer to peer called and denied, patient appeal ongoing -now on HD Leukocytosis -unclear etiology at this time -mild cough, xray without obvious infiltrate, CT chest with inflammatory nodules, enlarging -improving, discussed with pulmonology, f/u CT chest in 3 months Hyponatremia -discussed with nephrology, give 1 L water restriction Back Pain -likely 2/2 deconditioning. vitamin D level low Plan: -increased vit D3 to 125 mcg daily -OOB few times a day and PT daily as able -c/w pain Mx, follow. c/w bowel regimen while on opiates.Repeat Vit D level in 2-3 months. -pain management consult, appreciate recs Elevated high sensitive troponin Likely demand ischemia in setting of sepsis -Echocardiogram obtained; reviewed ESRD on peritoneal dialysis - -Nephro on board for dialysis assistance DM II -SSI HTN -c/w home atenolol, torsemide and amlodipine. 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 04/2014 Carotid duplex showed < 50% carotid stenosis bilaterally (report scanned in [facility]). -06/2023 carotid duplex demonstrates less than 50% carotid stenosis b/l ICAs. Hx PE in 2010, treated with Coumadin for ~3 months. -No longer on anticoagulation Blurry Vision -noted post operatively -no vision deficits -CT imaging with substantial vascular disease but no clear new infarct or hemo rrhage -no new strokes I spent a total of 50 minutes in direct patient care, including [id number] time with the patient and/or family, reviewing medical records, ordering and reviewing diagnostic tests, and coordinating care with other healthcare providers. This time includes: history taking, physical examination, medical decision making, counseling, ECG interpretation, imaging interpretation, lab interpretation, orders, and education, excluding time spent in the performance of separately billed services. Admission and Anticipated Discharge Date Admission Date: October 10, 2024 Subjective Patient seen and examined at bedside. present as well. Patient doing well today. Awaiting rehab. Review of Systems Review of Systems: CONSTITUTIONAL: Patient denies fevers, chills, sweats and weight changes. EARS, NOSE, AND THROAT: No difficulties with hearing. No symptoms of rhinitis or sore throat. CARDIOVASCULAR: Patient denies chest pains, palpitations, orthopnea and paroxysmal nocturnal dyspnea. RESPIRATORY: slight cough. GI: No nausea, vomiting, diarrhea, constipation, abdominal pain, hematochezia or melena. : No urinary hesitancy or dribbling. No nocturia or urinary frequency. No abnormal urethral discharge. MUSCULOSKELETAL: back pain NEUROLOGIC: No chronic headaches, no seizures. Patient denies numbness, tingling or weakness. PSYCHIATRIC: Patient denies problems with mood disturbance. No problems with anxiety. ENDOCRINE: No excessive urination or excessive thirst. DERMATOLOGIC: Patient denies any rashes or skin changes. Physical Exam Physical Exam: Gen: A&O 3 NAD, sarcopenia noted HEENT: NCAT, EOMI, not icteric. External ears normal. No rhinorrhea. Moist mucous membranes. Neck: Supple, full range of motion, no observable masses, No meningeal sign. Lungs: No Respiratory distress. CV: RRR, no edema. Abdomen: Soft, nondistended, No rebound tenderness. MSK: clean wounds on right fingers s/p amputation, foot wounds noted Skin: No rashes, petechiae, lesions. Normal color per patient. Neuro: Normal Gait, Grossly intact. Psych: Appropriate for situation. Results & Data Results & Data Vital Signs (Past 12 Hours) Vital Signs Temp Pulse Pulse Pulse Resp BP Pulse Ox 10/25/24 15:41 36.8 C 74 18 100/60 96 10/25/24 12:03 36.7 C 78 16 147/74 H 97 10/25/24 08:35 36.3 C L 73 16 132/73 100 10/25/24 05:47 75 O2 Del Method 10/25/24 15:41 Room Air 10/25/24 12:03 Room Air 10/25/24 08:35 Room Air 10/25/24 05:47 Laboratory Results -personally reviewed, WBC downtrending, Hgb at baseline, Na at baseline after dialysis Medications Administered Acetaminophen (Acetaminophen 325 Mg Tab) 650 mg PO Q4H PRN PRN Reason: Moderate Pain (Scale 4, 5, 6) Stop: 11/09/24 15:30 Last Admin: 10/23/24 00:32 Dose: 650 mg Documented By: Admin: 10/17/24 04:07 Dose: 650 mg Documented By: Admin: 10/10/24 20:32 Dose: 650 mg Documented By: SARAH Amlodipine Besylate (Amlodipine Besylate 5 Mg Tab) 2.5 mg PO QAM ESTHER Stop: 11/12/24 08:59 Last Admin: 10/25/24 09:41 Dose: 2.5 mg Documented By: Admin: 10/24/24 14:32 Dose: 2.5 mg Documented By: Admin: 10/23/24 08:10 Dose: 2.5 mg Documented By: Admin: 10/22/24 09:14 Dose: 2.5 mg Documented By: Admin: 10/21/24 12:01 Dose: Not Given Documented By: Admin: 10/20/24 08:22 Dose: 2.5 mg Documented By: Admin: 10/19/24 08:15 Dose: 2.5 mg Documented By: Admin: 10/18/24 08:12 Dose: 2.5 mg Documented By: Admin: 10/17/24 08:11 Dose: 2.5 mg Documented By: TB Co-signed By: ALMAS Admin: 10/16/24 08:14 Dose: 2.5 mg Documented By: Admin: 10/15/24 08:20 Dose: 2.5 mg Documented By: CARITO Co-signed By: ALMAS Admin: 10/14/24 08:16 Dose: 2.5 mg Documented By: CARITO Co-signed By: ALMAS Admin: 10/13/24 08:50 Dose: 2.5 mg Documented By: SALLY Aspirin (Aspirin 81 Mg Ectab) 81 mg PO DAILY ESTHER Stop: 11/14/24 08:59 Last Admin: 10/25/24 09:41 Dose: 81 mg Documented By: Admin: 10/24/24 14:36 Dose: 81 mg Documented By: BJLoni Admin: 10/23/24 08:11 Dose: 81 mg Documented By: Admin: 10/22/24 09:15 Dose: 81 mg Documented By: Admin: 10/21/24 12:00 Dose: 81 mg Documented By: Admin: 10/20/24 08:22 Dose: 81 mg Documented By: Admin: 10/19/24 08:14 Dose: 81 mg Documented By: Admin: 10/18/24 08:12 Dose: 81 mg Documented By: Admin: 10/17/24 08:10 Dose: 81 mg Documented By: TB Co-signed By: ALMAS Admin: 10/16/24 08:14 Dose: 81 mg Documented By: Admin: 10/15/24 09:17 Dose: 81 mg Documented By: TB Co-signed By: AAL Atenolol (Atenolol 50 Mg Tablet) 50 mg PO QAM ESTHER Stop: 11/11/24 13:59 Last Admin: 10/25/24 09:42 Dose: 50 mg Documented By: Admin: 10/24/24 14:31 Dose: 50 mg Documented By: Admin: 10/23/24 08:11 Dose: 50 mg Documented By: RLJoyce Admin: 10/22/24 09:15 Dose: 50 mg Documented By: Admin: 10/21/24 12:01 Dose: Not Given Documented By: Admin: 10/20/24 08:22 Dose: 50 mg Documented By: Admin: 10/19/24 08:14 Dose: 50 mg Documented By: Admin: 10/18/24 08:13 Dose: 50 mg Documented By: Admin: 10/17/24 08:11 Dose: 50 mg Documented By: TB Co-signed By: ALMAS Admin: 10/16/24 08:14 Dose: 50 mg Documented By: Admin: 10/15/24 08:20 Dose: 50 mg Documented By: TB Co-signed By: ALMAS Admin: 10/14/24 08:15 Dose: 50 mg Documented By: TB Co-signed By: ALMAS Admin: 10/13/24 10:05 Dose: 50 mg Documented By: Admin: 10/12/24 15:20 Dose: 50 mg Documented By: KTS Atorvastatin Calcium (Atorvastatin 40 Mg Tab) 80 mg PO QPM ESTHER Stop: 11/09/24 20:59 Last Admin: 10/24/24 21:52 Dose: 80 mg Documented By: Admin: 10/23/24 21:42 Dose: 80 mg Documented By: Admin: 10/22/24 20:34 Dose: 80 mg Documented By: Admin: 10/21/24 20:59 Dose: 80 mg Documented By: Admin: 10/20/24 21:01 Dose: 80 mg Documented By: Admin: 10/19/24 20:55 Dose: 80 mg Documented By: Admin: 10/18/24 22:09 Dose: 80 mg Documented By: Admin: 10/17/24 19:59 Dose: 80 mg Documented By: Admin: 10/16/24 20:53 Dose: 80 mg Documented By: Admin: 10/15/24 20:12 Dose: 80 mg Documented By: Admin: 10/14/24 22:04 Dose: 80 mg Documented By: Admin: 10/13/24 20:58 Dose: 80 mg Documented By: Admin: 10/12/24 20:27 Dose: 80 mg Documented By: Admin: 10/11/24 20:31 Dose: 80 mg Documented By: Admin: 10/10/24 20:25 Dose: 80 mg Documented By: SARAH Clopidogrel Bisulfate (Clopidogrel Bisulfate 75 Mg Tab) 75 mg PO HS [facility] Stop: 11/09/24 20:59 Last Admin: 10/24/24 21:52 Dose: 75 mg Documented By: Admin: 10/23/24 21:41 Dose: 75 mg Documented By: Admin: 10/22/24 20:34 Dose: 75 mg Documented By: Admin: 10/21/24 20:59 Dose: 75 mg Documented By: Admin: 10/20/24 21:02 Dose: 75 mg Documented By: Admin: 10/19/24 20:55 Dose: 75 mg Documented By: Admin: 10/18/24 22:08 Dose: 75 mg Documented By: Admin: 10/17/24 19:58 Dose: 75 mg Documented By: Admin: 10/16/24 20:54 Dose: 75 mg Documented By: Admin: 10/15/24 20:12 Dose: 75 mg Documented By: Admin: 10/14/24 22:04 Dose: 75 mg Documented By: Admin: 10/13/24 20:58 Dose: 75 mg Documented By: Admin: 10/12/24 20:27 Dose: 75 mg Documented By: Admin: 10/11/24 20:32 Dose: 75 mg Documented By: Admin: 10/10/24 20:24 Dose: 75 mg Documented By: SARAH Diclofenac Sodium (Diclofenac Sod 1% Gel 100 Gm Tube) 4 gm EXT Q6H ESTHER; Pr otocol Stop: 11/13/24 10:29 Last Admin: 10/25/24 16:21 Dose: 4 gm Documented By: Admin: 10/25/24 09:43 Dose: 4 gm Documented By: Admin: 10/25/24 05:41 Dose: 4 gm Documented By: Admin: 10/24/24 22:42 Dose: 4 gm Documented By: Admin: 10/24/24 16:30 Dose: 4 gm Documented By: Admin: 10/24/24 14:37 Dose: 4 gm Documented By: Admin: 10/24/24 04:11 Dose: Not Given Documented By: Admin: 10/23/24 21:36 Dose: Not Given Documented By: Admin: 10/23/24 16:05 Dose: Not Given Documented By: Admin: 10/23/24 11:48 Dose: Not Given Documented By: Admin: 10/23/24 03:58 Dose: Not Given Documented By: Admin: 10/22/24 20:35 Dose: 4 gm Documented By: Admin: 10/22/24 16:16 Dose: 4 gm Documented By: Admin: 10/22/24 12:05 Dose: Not Given Documented By: [facility] Admin: 10/22/24 05:18 Dose: 4 gm Documented By: Admin: 10/21/24 21:31 Dose: 4 gm Documented By: Admin: 10/21/24 17:16 Dose: 4 gm Documented By: Admin: 10/21/24 12:24 Dose: Not Given Documented By: Admin: 10/21/24 04:19 Dose: 4 gm Documented By: Admin: 10/20/24 23:12 Dose: 4 gm Documented By: Admin: 10/20/24 17:27 Dose: 4 gm Documented By: Admin: 10/20/24 12:15 Dose: 4 gm Documented By: Admin: 10/20/24 05:14 Dose: 4 gm Documented By: Admin: 10/19/24 20:56 Dose: 4 gm Documented By: Admin: 10/19/24 16:54 Dose: 4 gm Documented By: Admin: 10/19/24 11:31 Dose: 4 gm Documented By: Admin: 10/19/24 04:30 Dose: Not Given Documented By: Admin: 10/18/24 22:10 Dose: Not Given Documented By: Admin: 10/18/24 17:38 Dose: 4 gm Documented By: Admin: 10/18/24 12:05 Dose: 4 gm Documented By: Admin: 10/18/24 04:40 Dose: Not Given Documented By: Admin: 10/17/24 21:34 Dose: Not Given Documented By: Admin: 10/17/24 16:49 Dose: 4 gm Documented By: TB Co-signed By: ALMAS Admin: 10/17/24 12:10 Dose: 4 gm Documented By: CARITO Co-signed By: ALMAS Admin: 10/17/24 04:08 Dose: 4 gm Documented By: Admin: 10/16/24 22:54 Dose: Not Given Documented By: Admin: 10/16/24 16:22 Dose: 4 gm Documented By: Admin: 10/16/24 09:46 Dose: 4 gm Documented By: Admin: 10/16/24 05:18 Dose: 4 gm Documented By: Admin: 10/15/24 21:42 Dose: 4 gm Documented By: Admin: 10/15/24 16:57 Dose: 4 gm Documented By: TB Co-signed By: ALMAS Admin: 10/15/24 12:02 Dose: 4 gm Documented By: TB Co-signed By: ALMAS Admin: 10/15/24 04:20 Dose: 4 gm Documented By: Admin: 10/14/24 22:05 Dose: 4 gm Documented By: Admin: 10/14/24 16:45 Dose: 4 gm Documented By: TB Co-signed By: ALMAS Admin: 10/14/24 11:03 Dose: 4 gm Documented By: CARITO Co-signed By: ALMAS Docusate Sodium (Docusate Sodium 100 Mg Cap) 100 mg PO BID ESTHER Stop: 11/11/24 20:59 Last Admin: 10/25/24 09:53 Dose: 100 mg Documented By: Admin: 10/24/24 21:52 Dose: 100 mg Documented By: Admin: 10/24/24 14:47 Dose: 100 mg Documented By: Admin: 10/23/24 21:45 Dose: 100 mg Documented By: Admin: 10/23/24 08:12 Dose: Not Given Documented By: Admin: 10/22/24 20:34 Dose: 100 mg Documented By: Admin: 10/22/24 09:15 Dose: Not Given Documented By: Admin: 10/21/24 20:59 Dose: 100 mg Documented By: Admin: 10/21/24 12:01 Dose: Not Given Documented By: Admin: 10/20/24 21:01 Dose: 100 mg Documented By: Admin: 10/20/24 08:22 Dose: 100 mg Documented By: Admin: 10/19/24 20:56 Dose: 100 mg Documented By: Admin: 10/19/24 08:13 Dose: 100 mg Documented By: Admin: 10/19/24 01:37 Dose: Not Given Documented By: Admin: 10/18/24 08:11 Dose: 100 mg Documented By: Admin: 10/17/24 19:59 Dose: 100 mg Documented By: Admin: 10/17/24 08:12 Dose: Not Given Documented By: Admin: 10/16/24 20:58 Dose: 100 mg Documented By: Admin: 10/16/24 08:14 Dose: Not Given Documented By: Admin: 10/15/24 20:12 Dose: 100 mg Documented By: Admin: 10/15/24 08:49 Dose: Not Given Documented By: Admin: 10/14/24 22:04 Dose: 100 mg Documented By: Admin: 10/14/24 08:16 Dose: Not Given Documented By: Admin: 10/13/24 20:57 Dose: 100 mg Documented By: Admin: 10/13/24 08:51 Dose: 100 mg Documented By: Admin: 10/12/24 20:28 Dose: Not Given Documented By: AKP Erythromycin (Erythromycin Op Oint 5 Mg/Gm 3.5 Gm Tube) 1 appln OP TID ESTHER Stop: 10/31/24 13:59 Last Admin: 10/25/24 13:38 Dose: 1 appln Documented By: Admin: 10/25/24 09:43 Dose: 1 appln Documented By: Admin: 10/24/24 21:53 Dose: 1 appln Documented By: Admin: 10/24/24 14:37 Dose: 1 appln Documented By: Admin: 10/24/24 14:31 Dose: Not Given Documented By: Admin: 10/23/24 21:40 Dose: 1 appln Documented By: Admin: 10/23/24 14:22 Dose: 1 appln Documented By: Admin: 10/23/24 08:12 Dose: 1 appln Documented By: RLJoyce Admin: 10/22/24 20:34 Dose: 1 appln Documented By: Admin: 10/22/24 14:52 Dose: 1 appln Documented By: Admin: 10/22/24 09:16 Dose: 1 appln Documented By: Admin: 10/21/24 21:29 Dose: 1 appln Documented By: Admin: 10/21/24 17:16 Dose: Not Given Documented By: Admin: 10/21/24 11:13 Dose: 1 appln Documented By: SED Gabapentin (Gabapentin 600 Mg Tab) 600 mg PO TID SETHER Stop: 11/09/24 15:30 Last Admin: 10/25/24 13:38 Dose: 600 mg Documented By: Admin: 10/25/24 09:41 Dose: 600 mg Documented By: Admin: 10/24/24 21:52 Dose: 600 mg Documented By: Admin: 10/24/24 14:31 Dose: 600 mg Documented By: Admin: 10/24/24 14:23 Dose: Not Given Documented By: Admin: 10/23/24 21:41 Dose: 600 mg Documented By: Admin: 10/23/24 14:22 Dose: 600 mg Documented By: Admin: 10/23/24 08:10 Dose: 600 mg Documented By: Admin: 10/22/24 20:34 Dose: 600 mg Documented By: Admin: 10/22/24 14:52 Dose: 600 mg Documented By: JBJarad Admin: 10/22/24 09:17 Dose: 600 mg Documented By: Admin: 10/21/24 20:59 Dose: 600 mg Documented By: Admin: 10/21/24 16:19 Dose: Not Given Documented By: Admin: 10/21/24 12:00 Dose: 600 mg Documented By: Admin: 10/20/24 21:01 Dose: 600 mg Documented By: Admin: 10/20/24 12:15 Dose: 600 mg Documented By: Admin: 10/20/24 08:22 Dose: 600 mg Documented By: Admin: 10/19/24 20:56 Dose: 600 mg Documented By: Admin: 10/19/24 12:02 Dose: 600 mg Documented By: Admin: 10/19/24 08:14 Dose: 600 mg Documented By: Admin: 10/18/24 22:08 Dose: 600 mg Documented By: Admin: 10/18/24 14:34 Dose: 600 mg Documented By: Admin: 10/18/24 08:14 Dose: 600 mg Documented By: Admin: 10/17/24 19:58 Dose: 600 mg Documented By: Admin: 10/17/24 14:08 Dose: 600 mg Documented By: TB Co-signed By: LCS Admin: 10/17/24 08:10 Dose: 600 mg Documented By: TB Co-signed By: LCS Admin: 10/16/24 20:54 Dose: 600 mg Documented By: Admin: 10/16/24 13:31 Dose: 600 mg Documented By: Admin: 10/16/24 08:15 Dose: 600 mg Documented By: Admin: 10/15/24 20:12 Dose: 600 mg Documented By: Admin: 10/15/24 14:15 Dose: 600 mg Documented By: TB Co-signed By: LCS Admin: 10/15/24 08:21 Dose: 600 mg Documented By: TB Co-signed By: LCS Admin: 10/14/24 22:04 Dose: 600 mg Documented By: Admin: 10/14/24 16:43 Dose: 600 mg Documented By: TB Co-signed By: LCS Admin: 10/14/24 08:15 Dose: 600 mg Documented By: TB Co-signed By: LCS Admin: 10/13/24 20:58 Dose: 600 mg Documented By: Admin: 10/13/24 13:56 Dose: 600 mg Documented By: Admin: 10/13/24 08:50 Dose: 600 mg Documented By: Admin: 10/12/24 20:27 Dose: 600 mg Documented By: Admin: 10/12/24 14:02 Dose: 600 mg Documented By: Admin: 10/12/24 08:08 Dose: 600 mg Documented By: Admin: 10/11/24 20:32 Dose: 600 mg Documented By: Admin: 10/11/24 13:38 Dose: 600 mg Documented By: Admin: 10/11/24 08:54 Dose: 600 mg Documented By: Admin: 10/10/24 20:24 Dose: 600 mg Documented By: Admin: 10/10/24 16:25 Dose: 600 mg Documented By: EDD Heparin Sodium (Porcine) (Heparin Sod 5,000 Unit/0.5 Ml Vial) 5,000 units SQ Q8 ESTHER Stop: 11/10/24 13:59 Last Admin: 10/25/24 13:37 Dose: 5,000 units Documented By: Admin: 10/25/24 05:41 Dose: 5,000 units Documented By: Admin: 10/24/24 22:42 Dose: 5,000 units Documented By: Admin: 10/24/24 14:47 Dose: 5,000 units Documented By: Admin: 10/24/24 05:07 Dose: 5,000 units Documented By: Admin: 10/23/24 21:34 Dose: 5,000 units Documented By: Admin: 10/23/24 14:21 Dose: 5,000 units Documented By: Admin: 10/23/24 05:57 Dose: 5,000 units Documented By: Admin: 10/22/24 20:34 Dose: 5,000 units Documented By: Admin: 10/22/24 14:52 Dose: 5,000 units Documented By: Admin: 10/22/24 06:22 Dose: 5,000 units Documented By: Admin: 10/21/24 21:00 Dose: 5,000 units Documented By: Admin: 10/21/24 16:20 Dose: Not Given Documented By: Admin: 10/21/24 06:24 Dose: 5,000 units Documented By: Admin: 10/20/24 21:01 Dose: 5,000 units Documented By: Admin: 10/20/24 12:15 Dose: 5,000 units Documented By: Admin: 10/20/24 05:14 Dose: 5,000 units Documented By: Admin: 10/19/24 20:57 Dose: 5,000 units Documented By: Admin: 10/19/24 12:02 Dose: 5,000 units Documented By: Admin: 10/19/24 06:25 Dose: 5,000 units Documented By: Admin: 10/18/24 22:09 Dose: 5,000 units Documented By: Admin: 10/18/24 14:34 Dose: 5,000 units Documented By: Admin: 10/18/24 05:52 Dose: 5,000 units Documented By: Admin: 10/17/24 21:34 Dose: 5,000 units Documented By: Admin: 10/17/24 13:59 Dose: 5,000 units Documented By: TB Co-signed By: ALMAS Admin: 10/17/24 05:51 Dose: 5,000 units Documented By: Admin: 10/16/24 22:54 Dose: Not Given Documented By: Admin: 10/16/24 13:31 Dose: 5,000 units Documented By: Admin: 10/16/24 05:31 Dose: 5,000 units Documented By: Admin: 10/15/24 21:41 Dose: 5,000 units Documented By: Admin: 10/15/24 14:15 Dose: 5,000 units Documented By: TB Co-signed By: LCS Admin: 10/15/24 06:37 Dose: 5,000 units Documented By: Admin: 10/14/24 22:05 Dose: 5,000 units Documented By: Admin: 10/13/24 13:58 Dose: 5,000 units Documented By: Admin: 10/13/24 06:25 Dose: 5,000 units Documented By: Admin: 10/12/24 20:31 Dose: 5,000 units Documented By: Admin: 10/12/24 14:02 Dose: 5,000 units Documented By: Admin: 10/12/24 05:45 Dose: 5,000 units Documented By: Admin: 10/11/24 21:09 Dose: 5,000 units Documented By: Admin: 10/11/24 13:38 Dose: 5,000 units Documented By: KTS Cefazolin Sodium (Ancef 1000mg) 1,000 mg in 7.5 mls @ 2.5 mls/min IV Q24H ESTHER Stop: 11/22/24 15:59 Last Admin: 10/25/24 16:24 Dose: 2.5 mls/min Documented By: Admin: 10/24/24 16:27 Dose: 2.5 mls/min Documented By: Admin: 10/23/24 16:04 Dose: 2.5 mls/min Documented By: Admin: 10/22/24 16:15 Dose: 2.5 mls/min Documented By: Admin: 10/21/24 17:16 Dose: 2.5 mls/min Documented By: Admin: 10/20/24 17:27 Dose: 2.5 mls/min Documented By: Admin: 10/19/24 16:53 Dose: 2.5 mls/min Documented By: Admin: 10/18/24 17:15 Dose: 2.5 mls/min Documented By: Admin: 10/17/24 16:49 Dose: 2.5 mls/min Documented By: TB Co-signed By: LCS Admin: 10/16/24 16:22 Dose: 2.5 mls/min Documented By: Admin: 10/15/24 16:57 Dose: 2.5 mls/min Documented By: TB Co-signed By: LCS Admin: 10/14/24 16:46 Dose: 2.5 mls/min Documented By: TB Co-signed By: LCS Admin: 10/13/24 15:50 Dose: 2.5 mls/min Documented By: TB Co-signed By: OO Admin: 10/12/24 15:20 Dose: 2.5 mls/min Documented By: Admin: 10/11/24 17:43 Dose: 2.5 mls/min Documented By: KTS Insulin Aspart (Insulin Aspart Per Unit Charge) 0 units SC ACHS ESTHER Stop: 11/13/24 05:59 Last Admin: 10/25/24 13:36 Dose: 15 units Documented By: DANA Co-signed By: AMY Admin: 10/25/24 11:11 Dose: 5 units Documented By: DANA Co-signed By: AMY Admin: 10/24/24 21:53 Dose: 7 units Documented By: ROBERTK Co-signed By: ISA Admin: 10/24/24 17:36 Dose: 15 units Documented By: DANA Co-signed By: AMY Admin: 10/24/24 14:47 Dose: 12 units Documented By: DANA Co-signed By: TIMUR Admin: 10/24/24 14:24 Dose: Not Given Documented By: Admin: 10/23/24 21:35 Dose: 6 units Documented By: MARSHA Co-signed By: JAIME Admin: 10/23/24 18:28 Dose: 14 units Documented By: RLJoyce Co-signed By: HUY Admin: 10/23/24 12:28 Dose: 13 units Documented By: RLB Co-signed By: HUY Admin: 10/23/24 09:04 Dose: 8 units Documented By: RLB Co-signed By: AMY Admin: 10/22/24 20:34 Dose: 1 units Documented By: LOUISE Co-signed By: ERNESTO Admin: 10/22/24 17:49 Dose: 11 units Documented By: RLJoyce Co-signed By: JOSE CARLOS Admin: 10/22/24 12:23 Dose: 12 units Documented By: NMJarad Co-signed By: ABBY Admin: 10/22/24 09:13 Dose: 6 units Documented By: NMH Co-signed By: WS Admin: 10/21/24 20:58 Dose: 2 units Documented By: SANDOR Co-signed By: BRITTNEY Admin: 10/21/24 17:17 Dose: Not Given Documented By: Admin: 10/21/24 13:44 Dose: Not Given Documented By: Admin: 10/21/24 07:10 Dose: Not Given Documented By: Admin: 10/20/24 21:02 Dose: 1 units Documented By: SANDOR Co-signed By: BRITTNEY Admin: 10/20/24 17:27 Dose: 11 units Documented By: CA Co-signed By: OO Admin: 10/20/24 12:15 Dose: 8 units Documented By: CA Co-signed By: SEAG Admin: 10/20/24 08:19 Dose: 7 units Documented By: JANINE Co-signed By: CHENCHO Admin: 10/19/24 20:57 Dose: 1 units Documented By: SAM Co-signed By: MARCIA Admin: 10/19/24 16:53 Dose: 7 units Documented By: JANINE Co-signed By: ARMANDO Admin: 10/19/24 12:01 Dose: 10 units Documented By: CA Co-signed By: COLE Admin: 10/19/24 08:13 Dose: 6 units Documented By: JANINE Co-signed By: SAM(2) Admin: 10/18/24 22:10 Dose: 7 units Documented By: KIKE Co-signed By: JOSE Admin: 10/18/24 17:15 Dose: 14 units Documented By: ALMAS Co-signed By: JAIME(2) Admin: 10/18/24 12:02 Dose: 9 units Documented By: ALMAS Co-signed By: ANDRE Admin: 10/18/24 08:10 Dose: 8 units Documented By: ALMAS Co-signed By: ANDRE Admin: 10/17/24 21:33 Dose: 5 units Documented By: [email or web address] Co-signed By: JOSE Admin: 10/17/24 16:49 Dose: Not Given Documented By: Admin: 10/17/24 12:10 Dose: 11 units Documented By: TB Co-signed By: ALMAS Admin: 10/17/24 08:08 Dose: 9 units Documented By: TB Co-signed By: ALMAS Admin: 10/16/24 20:58 Dose: 7 units Documented By: JINNY Co-signed By: NILE Admin: 10/16/24 17:02 Dose: Not Given Documented By: Admin: 10/16/24 12:03 Dose: 12 units Documented By: LCS Co-signed By: JANINE Admin: 10/16/24 08:12 Dose: 10 units Documented By: ALMAS Co-signed By: NADER Admin: 10/15/24 21:41 Dose: 1 units Documented By: SANDOR Co-signed By: [id number] Admin: 10/15/24 16:56 Dose: 7 units Documented By: TB Co-signed By: ALMAS Admin: 10/15/24 12:02 Dose: 12 units Documented By: TB Co-signed By: ALMAS Admin: 10/15/24 08:21 Dose: 7 units Documented By: TB Co-signed By: ALMAS Admin: 10/14/24 22:04 Dose: 2 units Documented By: SANDOR Co-signed By: RMEY Admin: 10/14/24 17:47 Dose: 6 units Documented By: CARITO Co-signed By: ALMAS Insulin Glargine (Lantus Per Unit Charge) 15 units SC BID ESTHER Stop: 11/22/24 08:59 Last Admin: 10/25/24 11:09 Dose: 15 units Documented By: DANA Co-signed By: AMY Admin: 10/24/24 21:53 Dose: 15 units Documented By: MARSHA Co-signed By: ISA Admin: 10/24/24 14:47 Dose: 15 units Documented By: DANA Co-signed By: TIMUR Admin: 10/23/24 21:35 Dose: 15 units Documented By: MARSHA Co-signed By: JAIME Admin: 10/23/24 09:05 Dose: 15 units Documented By: SAMIRA Co-signed By: AMY Lidocaine (Lidocaine 5% 1 Patch) 1 patch TD QAM ESTHER Stop: 11/18/24 13:44 Last Admin: 10/25/24 11:54 Dose: 1 patch Documented By: Admin: 10/24/24 14:36 Dose: 1 patch Documented By: Admin: 10/23/24 08:12 Dose: 1 patch Documented By: Admin: 10/22/24 09:17 Dose: 1 patch Documented By: Admin: 10/21/24 12:25 Dose: Not Given Documented By: Admin: 10/20/24 08:23 Dose: 1 patch Documented By: Admin: 10/19/24 16:50 Dose: 1 patch Documented By: JANINE Miscellaneous (Remove Lidoderm Patch) 1 each N/A DAILY@2100 [facility] Stop: 11/18/24 20:59 Last Admin: 10/24/24 21:54 Dose: 1 each Documented By: Admin: 10/23/24 21:36 Dose: 1 each Documented By: Admin: 10/22/24 20:35 Dose: 1 each Documented By: Admin: 10/21/24 20:59 Dose: 1 each Documented By: Admin: 10/20/24 21:01 Dose: 1 each Documented By: Admin: 10/19/24 20:57 Dose: 1 each Documented By: SAM Ondansetron HCl (Ondansetron Inj 2 Mg/Ml 2 Ml Vial) 4 mg IV Q4H PRN PRN Reason: Nausea And Vomiting Stop: 11/09/24 15:30 Last Admin: 10/16/24 12:21 Dose: 4 mg Documented By: ALMAS Oxycodone HCl (Oxycodone Hcl Ir 5 Mg Tab (Immediate Release)) 5 mg PO Q6H PRN PRN Reason: Pain Stop: 10/27/24 13:00 Last Admin: 10/24/24 09:14 Dose: 5 mg Documented By: Admin: 10/23/24 05:57 Dose: 5 mg Documented By: Admin: 10/22/24 20:33 Dose: 5 mg Documented By: Admin: 10/22/24 03:07 Dose: 5 mg Documented By: Admin: 10/21/24 04:18 Dose: 5 mg Documented By: Admin: 10/20/24 21:01 Dose: 5 mg Documented By: Admin: 10/20/24 08:21 Dose: 5 mg Documented By: Admin: 10/19/24 21:59 Dose: 5 mg Documented By: Admin: 10/19/24 13:00 Dose: 5 mg Documented By: Admin: 10/19/24 01:35 Dose: 5 mg Documented By: Admin: 10/18/24 17:15 Dose: 5 mg Documented By: Admin: 10/18/24 09:36 Dose: 5 mg Documented By: Admin: 10/17/24 11:10 Dose: 5 mg Documented By: CARITO Co-signed By: ALMAS Admin: 10/17/24 04:07 Dose: 5 mg Documented By: Admin: 10/16/24 07:40 Dose: 5 mg Documented By: Admin: 10/15/24 17:03 Dose: 5 mg Documented By: CARITO Co-signed By: ALMAS Admin: 10/15/24 10:19 Dose: 5 mg Documented By: CARITO Co-signed By: ALMAS Admin: 10/15/24 04:18 Dose: 5 mg Documented By: Admin: 10/14/24 16:52 Dose: 5 mg Documented By: CARITO Co-signed By: ALMAS Admin: 10/14/24 10:24 Dose: 5 mg Documented By: CARITO Co-signed By: ALMAS Polyethylene Glycol (Polyethylene (Miralax) 17 Gm Pack) 17 gm PO DAILY ESTHER Stop: 11/16/24 13:44 Last Admin: 10/25/24 09:54 Dose: 17 gm Documented By: Admin: 10/24/24 14:37 Dose: 17 gm Documented By: Admin: 10/23/24 08:15 Dose: Not Given Documented By: Admin: 10/22/24 09:16 Dose: Not Given Documented By: Admin: 10/21/24 12:24 Dose: Not Given Documented By: Admin: 10/20/24 08:22 Dose: 17 gm Documented By: Admin: 10/19/24 08:13 Dose: 17 gm Documented By: Admin: 10/18/24 08:11 Dose: 17 gm Documented By: Admin: 10/17/24 13:59 Dose: 17 gm Documented By: TB Co-signed By: ALMAS Sennosides (Senna 8.6 Mg Tab) 8.6 mg PO QAM ESTHER Stop: 11/18/24 13:44 Last Admin: 10/25/24 09:53 Dose: 8.6 mg Documented By: Admin: 10/24/24 14:47 Dose: 8.6 mg Documented By: Admin: 10/23/24 08:15 Dose: 8.6 mg Documented By: RLJoyce Admin: 10/22/24 09:16 Dose: Not Given Documented By: Admin: 10/21/24 12:24 Dose: Not Given Documented By: Admin: 10/20/24 08:22 Dose: 8.6 mg Documented By: Admin: 10/19/24 16:50 Dose: 8.6 mg Documented By: JANINE Torsemide (Torsemide 100 Mg Tab) 100 mg PO DAILY ESTHER Stop: 11/12/24 08:59 Last Admin: 10/25/24 09:41 Dose: 100 mg Documented By: Admin: 10/24/24 14:35 Dose: 100 mg Documented By: Admin: 10/23/24 08:11 Dose: 100 mg Documented By: RLJoyce Admin: 10/22/24 09:17 Dose: 100 mg Documented By: Admin: 10/21/24 12:02 Dose: Not Given Documented By: Admin: 10/20/24 08:22 Dose: 100 mg Documented By: Admin: 10/19/24 08:15 Dose: 100 mg Documented By: Admin: 10/18/24 08:14 Dose: 100 mg Documented By: Admin: 10/17/24 08:10 Dose: 100 mg Documented By: TB Co-signed By: LCS Admin: 10/16/24 08:15 Dose: 100 mg Documented By: Admin: 10/15/24 08:21 Dose: 100 mg Documented By: TB Co-signed By: LCS Admin: 10/14/24 08:15 Dose: 100 mg Documented By: TB Co-signed By: LCS Admin: 10/13/24 08:49 Dose: 100 mg Documented By: OO Vitamin D (Cholecalciferol 125 Mcg (5,000 Units) Tab) 125 mcg PO QAM ESTHER Stop: 11/14/24 13:59 Last Admin: 10/25/24 09:42 Dose: 125 mcg Documented By: Admin: 10/24/24 14:35 Dose: 125 mcg Documented By: Admin: 10/23/24 08:11 Dose: 125 mcg Documented By: Admin: 10/22/24 09:15 Dose: 125 mcg Documented By: Admin: 10/21/24 12:01 Dose: 125 mcg Documented By: Admin: 10/20/24 08:23 Dose: 125 mcg Documented By: Admin: 10/19/24 08:14 Dose: 125 mcg Documented By: Admin: 10/18/24 08:13 Dose: 125 mcg Documented By: Admin: 10/17/24 08:10 Dose: 125 mcg Documented By: TB Co-signed By: ALMAS Admin: 10/16/24 09:46 Dose: 125 mcg Documented By: Admin: 10/15/24 14:30 Dose: 125 mcg Documented By: TB Co-signed By: JANINE (1) Sepsis Sepsis acute organ dysfunction status: with acute organ dysfunction Sepsis type: sepsis due to unspecified organism Severe sepsis acute organ dysfunction type: encephalopathy Severe sepsis shock status: without septic shock Qualified Code(s): A41.9 - Sepsis, unspecified organism; R65.20 - Severe sepsis without septic shock; G93.41 - Metabolic encephalopathy
--- NOTE | 2024-10-25 20:57 | Podiatry Progress Note ---
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 - Foot cleaned with betadine swab, redressed with Optifoam adhesive gauze. - Sutures will be removed at two weeks. Should keep dressing clean, dry, and intact until then. - Advised to elevate left foot at rest and to wear heel offloading (waffle) boots at rest. - Agree with plan for longer term IV abx based on multiple comorbid infections, though foot OM should be definitively excised. Pathology pending - Will continue to follow. No further surgical intervention pending for foot/ankle. Admission and Anticipated Discharge Date Admission Date: October 10, 2024 Subjective Patient seen at bedside with present. Patient reports feeling well. Reports he has the heel offloading boots, but he doesn't always wear them. Reports ke eping the left foot dry. Review of Systems Constitutional: + fatigue and + weakness; no fever, no c hills and no sweats Eyes: no problem reported Ear, Nose, Mouth, Throat: no problem reported Respiratory: no problem reported Cardiovascular: + edema; no problem reported Gastrointestinal: no nausea, no vomiting and no problem reported Musculoskeletal: + muscle weakness; no problem reported Integumentary: no skin ulcer, no wounds and no erythema Neurologic: + loss of sensation, + numbness and + pa resthesia Psychiatric: no confusion Physical Exam Constitutional: WD/WN, vitals as above average body habitus; no acute distress Eyes: PERRL, conjunctivae normal, anicteric sclerae ENMT: external ear and nose normal, oropharynx normal Neck: trachea midline, no thyromegaly Respiratory: normal respiratory effort; no respiratory distress Cardiovascular: Rate/Rhythm: regular rate and regular rhythm Vessels: + posterior tibial pulses abnormal and + dorsalis pedis pulses abnormal Extremities: normal capillary refill and + pedal edema Gastrointestinal (Abdomen): Inspection/Auscultation: abdomen normal to inspection Musculoskeletal: Head/Neck/Chest: normocephalic and head atraumatic Extremities: + amputation noted (s/p right hallux amputation, left partial 1st ray, 2nd/3rd toes amputations) and + foot abnormality (pes planus) Skin: + skin atrophy and + nails dystrophic; n o ulcers and no wound (left 2nd and 3rd toes) Sutures are well coapted without wound dehiscence. Minimal serosanguineous drainage noted. No ascending cellulitis. Subdermal bleeding without wound consistent with stage 0 pressure injury noted left sub 5th met head. 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 Diabetic foot ulcer location: toe Diabetes mellitus type: type 2 Laterality: left Qualified Code(s): E11.621 - Type 2 diabetes mellitus with foot ulcer; L97.524 - Non-pressure chronic ulcer of other part of left foot with necrosis of bone (3) Sepsis Sepsis acute organ dysfunction status: with acute organ dysfunction Sepsis type: sepsis due to unspecified organism Severe sepsis acute organ dysfunction type: encephalopathy Severe sepsis shock status: without septic shock Qualified Code(s): A41.9 - Sepsis, unspecified organism; R65.20 - Severe sepsis without septic shock; G93.41 - Metabolic encephalopathy
[2024-10-26 06:40] LABS: Hematocrit (blood only) 27.0 % (42.0-52.0); Hemoglobin 9.0 g/dl (14.0-18.0); Mean Corpuscular Hemoglobin 31.1 pg (25.0-34.0); Mean Corpuscular Volume 93.4 fL (80.0-100.0); Platelet Count 228 K/uL (130-400); RDW Standard Deviation 48.9 fL (36.4-46.3); Red Blood Count 2.89 M/uL (4.70-6.10); White Blood Count 10.54 K/ul (4.8-10.8)
[2024-10-26 06:53] LABS: Anion Gap 11.0 (3-11); Blood Urea Nitrogen 68.0 mg/dl (6-23); Calcium 8.7 mg/dl (8.6-10.3); Carbon Dioxide 26.0 mmol/L (21-32); Chloride 94.0 mmol/L (98-107); Creatinine Clr Calc Pharmacy 14.4 ml/min; Glucose 76.0 mg/dl (70-99(Fasting)); Magnesium 2.2 mg/dl (1.7-2.4); Potassium 3.6 mmol/L (3.5-5.1); Sodium 131.0 mmol/L (136-145)
[2024-10-26] MEDS ORDERED: SODIUM CHLORIDE 0.9% 1,000 ML IV PRN (07:26)
[2024-10-26] MEDS: HEPARIN SOD (PORCINE) 1000 UNIT/ML IV ONE ×2 (09:44→12:43)
[2024-10-26] MEDS: HEPARIN SOD (PORCINE) 1000 UNIT/ML IV SCH ×2 (10:08→12:44)
[2024-10-26] MEDS: EPOETIN ALFA 20,000 UNITS/ML VIAL IV ONE ×2 (10:17→12:43)
--- NOTE | 2024-10-26 14:01 | Pharmacy Report ---
Pharmacy Glycemic Short Note 2 - Date of Service October 26, 2024 - Glycemic Short BSG Results (Last 24 hours): 10/25/24 10/25/24 10/26/24 16:32 20:09 06:16 Glucose 76 POC Glucose 147 H 144 H 10/26/24 10/26/24 08:28 13:32 Glucose POC Glucose 105 H 126 H OUTPATIENT ANTIDIABETIC REGIMEN: * NovoLog 5 units SQ QAM, 10 units @ noon, 10 units in afternoon, CF 20 >140mg/dL * Lantus 20 untis SQ BID * HbA1c is unreliable in ESRD patients d/t interactions between the A1c analyzing technique and high levels of urea in ESRD, reduced RBC life span, iron deficiency anemia, and EPO administration. HbA1c > 7.5% in ESRD patient may overestimate the extent of hyperglycemia in ESRD patients. ASSESSMENT: 10/26 * Patient received total of 59 units of insulin yesterday, of which 30 units were basal insulin * Fasting BSG 76 mg/dL - will hold AM lantus and decrease basal starting tonight with scale * No change to Cf/CR 10/25 * Patient received total of 64 units of insulin yesterday of which 30 units were basal * Fasting BSG within range 105 mg/dL - no change * Continue same CF/CR for now 10/23 * Otto received a total of 50 units of SQ insulin yesterday (20 units basal + 30 units bolus). * Fasting BSG = 174 mg/dL today. Oral intake improved. Will resume BID dosing of Lantus. * HD catheter placed on 10/21. Patient had 4 hour HD session that day. 10/21: * BSGs [phone]/dL the last 24h. Received 40units of basal and 27 units of bolus insulin yesterday. * NPO this AM for HD cath placement and remains NPO this afternoon. AM Lantus held by nursing this morning given fasting BSG in 90s and prolonged NPO status. * Resume Lantus 20 units tonight and then reassess basal in AM. No change to Novolog. 10/20: * Patient received 64 units of insulin yesterday, 40 of which were basal. BSGs have been well controlled over the past 24 hours: [phone] mg/dL * Fasting BSG remains adequate at 115 mg/dL. * Patient is ordered and tolerating a diet. * Plan to transition to HD tomorrow from PD. 10/18 * Patient has received 25 units BID per scale x last 3 days- fasting within range, will schedule * BSGs slightly lower than goal with lunch/dinner yesterday but not hypoglycemic. Patient has refused with insulin with dinner leading to high HS blood sugar. Will loosen carb ratio slightly to try and maintain BSG 110-140 mg/dL 10/14 * NPO for OR this AM * Fasting BSG elevated this AM. Increased lantus sliding scale. * Tightened CF and CR 2nd elevated post-prandial glucose. 10/13 * Diet resumed this AM after ANI * Fasting BSG elevated. Will increase Lantus * One post-prandial BSG elevated yesterday after tightening Novolog parameters. Will not make further adjustments for now, but may consider tightening Novolog parameters if post-prandial BSG's remain elevated. PLAN FOR INPATIENT GLYCEMIC CONTROL: * Hold outpatient oral diabetes medications * Basal insulin * Lantus 10-20 units HS * Bolus insulin * NovoLog per scale ACHS or Q6hrs while NPO * Goal Range: Low 110 mg/dL - High 140 mg/dL * Correction Factor: 20 mg/dL/unit * Nutritional / Prandial insulin per carb ratio of 1 unit per 7 grams CHO consumed
--- NOTE | 2024-10-26 15:36 | Nephrology Progress Note ---
Date of Service October 26, 2024 Assessment & Plan (1) ESRD on peritoneal dialysis: Plan: patient does not have much residual renal function left as he makes only about 500ml of urine per day, has made as much as 1.2L on one day at least this admission he has been doing peritoneal dialysis through a nocturnal cycler at home for the last few months. Previously was on hemodialysis and has now changed back to HD for foreseeable future not only for rehab but b/c of carepartner fatigue/health issues ESRD secondary to diabetes hypertension and chronic diffuse vascular disease. fluid status acceptable labs appear acceptable though ongoing hyponatremia 131 today and hgb 9 PD cath removed and C VAC placed on October 21 Undergoing chronic HD now since 10/21 and awaiting rehab dispo >cont routine HD w/ aggressive UF > got 3.9 L todayt; next treatment October 28 - For HD next on 10/28 -- UF as tolerated to keep SBP> 100, low sodium-- keep on 1.2 lit FR while inpatient -->needs IV abx for 6 weeks. (2) Sepsis: Plan: PD fluid negative for peritonitis. No need of IP abx . ID eval done. MSSA bacteremia on 10/12 admission. ANI--negative. getting Some Amputations. Blood C/s from 10/14 so far negative. 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 for Cefazolin for 6 weeks. Admission and Anticipated Discharge Date Admission Date: October 10, 2024 Subjective No updates on discharge dispo; starting to get frustrated/depressed about being in the hospital for so long. Wants nothing more than just to be home. That said remains a two-person assist for transfers. Denies worsening shortness of breath, chest pain, palpitations. Ongoing back pain which can be severe at times and for which he is on medication. Tolerated 3.9 L UF today her blood pressures are somewhat improved at least for now Review of Systems 2 Review of Systems: All systems reviewed & are unremarkable except as noted in Subjective Physical Exam 2 Constitutional: well developed and well nourished Eyes: EOM intact bilaterally ENMT: Mouth: + dry oral mucous membranes Respiratory: normal respiratory effort Auscultation: + diminished lung sounds Cardiovascular: Rate/Rhythm: regular rate and regular rhythm Extremities: n o edema Gastrointestinal (Abdomen): Inspection/Auscultation: normal bowel sounds P ercussion/Palpation: abdomen soft; abdomen nontender Musculoskeletal: Extremities: strength 5/5 throughout Skin: no rashes, warm and dry Results & Data Vital Signs (Past 12 Hours) Vital Signs Temp Pulse Pulse Pulse Resp BP BP 10/26/24 13:20 36.7 C 73 10/26/24 13:00 73 98/60 L 10/26/24 12:45 70 111/55 L 10/26/24 12:30 71 93/57 L 10/26/24 12:00 74 105/58 L 10/26/24 11:30 71 116/72 10/26/24 11:00 70 122/55 L 10/26/24 10:30 69 106/64 10/26/24 10:00 66 109/60 10/26/24 09:30 68 110/67 10/26/24 09:08 73 106/63 10/26/24 09:03 36.6 C 61 10/26/24 08:45 10/26/24 08:14 36.4 C L 69 18 146/54 H 10/26/24 07:25 69 BP Pulse Ox O2 Del Method 10/26/24 13:20 111/57 L 10/26/24 13:00 10/26/24 12:45 10/26/24 12:30 10/26/24 12:00 10/26/24 11:30 10/26/24 11:00 10/26/24 10:30 10/26/24 10:00 10/26/24 09:30 10/26/24 09:08 10/26/24 09:03 10/26/24 08:45 Room Air 10/26/24 08:14 93 Room Air 10/26/24 07:25 Laboratory Results 10/26/24 06:16 10/26/24 06:16 (2) Sepsis Sepsis acute organ dysfunction status: with acute organ dysfunction Sepsis type: sepsis due to unspecified organism Severe sepsis acute organ dysfunction type: encephalopathy Severe sepsis shock status: without septic shock Qualified Code(s): A41.9 - Sepsis, unspecified organism; R65.20 - Severe sepsis without septic shock; G93.41 - Metabolic encephalopathy
--- NOTE | 2024-10-26 17:17 | Hospitalist Progress Note ---
Date of Service October 26, 2024 Assessment & Plan (1) Sepsis: (2) Diabetes mellitus: (3) Diabetic peripheral neuropathy associated with type 2 diabetes mellitus: (4) Peripheral vascular disease: (5) ESRD on peritoneal dialysis: (6) HTN (hypertension): (7) S/P cardiac pacemaker procedure: (8) History of diabetic ulcer of foot: Plan Patient is a 64 yr male with PMHx of end-stage renal disease on peritoneal dialysis, DM type II, CAD, HTN history of complete heart block, s/p pacemaker insertion, aortic valve, bicuspid, history of PE, peripheral vascular disease, s/p left great toe amputation,chronic left 2nd and 3rd toe wound, left well- healed heel ulcer, dry gangrene of right hand, who presents to the hospital with approximately 24 hours of increased confusion, lethargy, fever, chills/rigors 2/2 sepsis. Severe Sepsis, resolved MSSA bacteremia Left 2nd/3rd Digit Foot Osteomyelitis s/p amputation Right 4th/5th Digit Osteomyelitis s/p amputation -Foot MRI: OM of left 2nd and 3rd toes. -MRI L spine (done for concerns of reported back pain): no concerns for OM. -Admitting (10/10) Bl Cx: 4 out of 4 bottles growing MSSA -Repeat Bl cx 10/12: 1 of 4 bottle growing S. Aureus [Of note, pt underwent L toe amputation later morning of 10/12]. -Left foot operative Cx 10/12: MSSA, also growing Helococcus and Anaerococcus. -MRI Rt finger (4th and 5th) 10/13: osteomyelitis at the fourth and fifth distal phalanges. -Right ring finger operative Cx 10/14: staph and Enterobacter and cutibacterium growing, follow final results. Plan: -ID shaunna, recommends iv cefazolin daily. for 6 weeks from the date of last neg blood culture. ~Discussed with ID again 10/19 evening regarding additional growth in operative cultures, no new antibiotic coverage needed, continue with prior antibiotic plan. -Due to patient's increased need pt's states she won't be able to care at home ~Plan for peritoneal dialysis catheter removal and TDC placement prior to discharge Continue management as above per prior provider Needs follow-up with podiatry for suture removal Elevate left foot at rest and wear heel offloading boots at rest --Pathology: Marked acute osteomyelitis with superficial ulceration left second toe. Bone and soft tissue with mild reactive changes. Marked acute osteomyelitis with superficial ulceration left third toe. Unremarkable bone and soft tissue. Continue antibiotics as above Needs rehab when able Abnormal CT chest Enlarging inflammatory nodules --CT Chest:Slightly worsened centrilobular interstitial infiltrates in the left upper lobe and bilateral lower lobes. This could be due to an atypical inflammatory process such as JEM infection. Interval increase in size and number of small pulmonary nodules. These may be inflammatory but are indeterminate in nature. A follow-up chest CT is recommended in 6 months. Emphysema. Mild right hilar adenopathy, nonspecific in nature. Splenomegaly --Needs follow-up with pulmonology with repeat CT in 3-6 months as outpatient Hyponatremia Sodium 131 today Continue fluid restriction Monitor sodium levels Appreciate nephrology input Back Pain Vitamin D deficiency -likely 2/2 deconditioning. vitamin D level low -increased vit D3 to 125 mcg daily -OOB few times a day and PT daily as able Appreciate pain management input Needs repeat vitamin D levels as outpatient Elevated high sensitive troponin Likely demand ischemia in setting of sepsis -Echocardiogram obtained; reviewed ESRD on dialysis Patient nephrology input Continue dialysis per nephrology DM II -SSI HTN -c/w home atenolol, torsemide and amlodipine. Monitor blood pressure Peripheral Vascular disease Multiple amputation history -vascular surgery consult, appreciate recs Hx CVA - left posterior frontal infarction in the MCA distribution in 2008, manifested by inability to spell a common word as well as a right centrum semiovale and right occipital lobe CVA 04/2014, manifested by left arm weakness that lasted several days before resolving. 04/2014 Carotid duplex showed < 50% carotid stenosis bilaterally (report scanned in [facility]). -06/2023 carotid duplex demonstrates less than 50% carotid stenosis b/l ICAs. --Continue aspirin, Plavix, statin Hx PE in 2010, treated with Coumadin for ~3 months. -No longer on anticoagulation Blurry Vision --MRI Brain: Progressive white matter disease likely on a small vessel ischemic basis. Multiple old cerebellar lacunar infarcts, old left thalamic lacunar infarct and old left frontal infarct. No acute infarcts identified. Progressive atrophy. Mild ventricular dilatation likely secondary to volume loss. -noted post operatively -no vision deficits -CT imaging with substantial vascular disease but no clear new infarct or hemorrhage Resolved DVT Px: Heparin SQ Code Status Full Code Admission and Anticipated Discharge Date Admission Date: October 10, 2024 Subjective Patient is seen and examined at bedside Was having hemodialysis this morning during my encounter Offers no new complaints Informed by RN that patient had some dyspnea during dialysis Review of Systems Review of Systems: All systems reviewed & are unremarkable except as noted in Subjective Physical Exam Physical Exam: Physical Exam: Vitals signs as noted above General Appearance:Moderately built and nourished, no apparent distress Head: normocephalic, Atraumatic Eyes: normal inspection, EOMI Neck: supple, Trachea midline Respiratory/Chest: Normal breath sounds, CTA, No accessory muscle use Cardiovascular: S1, S2, No murmur Abdomen/GI:Soft, Non tender, Bowel sounds present Extremities/Musculoskeletal:normal inspection, S/P toe amputation Neurologic/Psych:AAOX3, grossly no focal neurological deficits Skin: normal color, warm Results & Data Results & Data Vital Signs (Past 12 Hours) Vital Signs Temp Pulse Pulse Pulse Resp BP BP 10/26/24 16:08 37.3 C 92 H 97 H 16 137/86 10/26/24 13:20 36.7 C 73 10/26/24 13:00 73 98/60 L 10/26/24 12:45 70 111/55 L 10/26/24 12:30 71 93/57 L 10/26/24 12:00 74 105/58 L 10/26/24 11:30 71 116/72 10/26/24 11:00 70 122/55 L 10/26/24 10:30 69 106/64 10/26/24 10:00 66 109/60 10/26/24 09:30 68 110/67 10/26/24 09:08 73 106/63 10/26/24 09:03 36.6 C 61 10/26/24 08:45 10/26/24 08:14 36.4 C L 69 18 146/54 H 10/26/24 07:25 69 BP Pulse Ox O2 Del Method 10/26/24 16:08 92 Room Air 10/26/24 13:20 111/57 L 10/26/24 13:00 10/26/24 12:45 10/26/24 12:30 10/26/24 12:00 10/26/24 11:30 10/26/24 11:00 10/26/24 10:30 10/26/24 10:00 10/26/24 09:30 10/26/24 09:08 10/26/24 09:03 10/26/24 08:45 Room Air 10/26/24 08:14 93 Room Air 10/26/24 07:25 Laboratory Results Short CBC 10/26/24 Range/Units 06:16 WBC 10.54 (4.8-10.8) K/ul Hgb 9.0 L (14.0-18.0) g/dl Hct 27.0 L (42.0-52.0) % Plt Count 228 (130-400) K/uL BMP 10/26/24 06:16 Sodium 131 L Potassium 3.6 Chloride 94 L Carbon Dioxide 26 BUN 68 H Creatinine 6.63 H* D Glucose 76 Calcium 8.7 (1) Sepsis Sepsis acute organ dysfunction status: with acute organ dysfunction Sepsis type: sepsis due to unspecified organism Severe sepsis acute organ dysfunction type: encephalopathy Severe sepsis shock status: without septic shock Qualified Code(s): A41.9 - Sepsis, unspecified organism; R65.20 - Severe sepsis without septic shock; G93.41 - Metabolic encephalopathy
[2024-10-26] MEDS ORDERED: LANTUS PER UNIT CHARGE SC SCH (21:00)
[2024-10-26] MEDS: LANTUS PER UNIT CHARGE SC SCH (21:11)
[2024-10-27 07:04] LABS: Hematocrit (blood only) 31.0 % (42.0-52.0); Hemoglobin 10.1 g/dl (14.0-18.0); Mean Corpuscular Hemoglobin 30.7 pg (25.0-34.0); Mean Corpuscular Volume 94.2 fL (80.0-100.0); Platelet Count 255 K/uL (130-400); RDW Standard Deviation 50.9 fL (36.4-46.3); Red Blood Count 3.29 M/uL (4.70-6.10); White Blood Count 10.34 K/ul (4.8-10.8)
[2024-10-27 07:28] LABS: Anion Gap 11.0 (3-11); Blood Urea Nitrogen 45.0 mg/dl (6-23); Calcium 8.9 mg/dl (8.6-10.3); Carbon Dioxide 25.0 mmol/L (21-32); Chloride 95.0 mmol/L (98-107); Creatinine Clr Calc Pharmacy 18.3 ml/min; Glucose 74.0 mg/dl (70-99(Fasting)); Potassium 3.9 mmol/L (3.5-5.1); Sodium 131.0 mmol/L (136-145)
[2024-10-27] MEDS: MoRPHine SULFATE 2 MG/ML CARP IV ONE (14:45)
--- NOTE | 2024-10-27 16:27 | XRay Report ---
Clinical history: Pain Technique: 3 views of the lumbar spine are submitted for review Findings: The lumbar vertebrae are in normal alignment with no listhesis seen. No fracture is identified. There are small degenerative spurs throughout the lower thoracic and lumbar spine. No focal osseous lesion is seen. There is constipation. Vascular calcifications are present Impression: Multilevel degenerative disc disease Electronically signed by Mak Park 10-27-2024 4:27 PM
--- NOTE | 2024-10-27 17:16 | Hospitalist Progress Note ---
Date of Service October 27, 2024 Assessment & Plan (1) Sepsis: (2) Diabetes mellitus: (3) Diabetic peripheral neuropathy associated with type 2 diabetes mellitus: (4) Peripheral vascular disease: (5) ESRD on peritoneal dialysis: (6) HTN (hypertension): (7) S/P cardiac pacemaker procedure: (8) History of diabetic ulcer of foot: Plan Patient is a 64 yr male with PMHx of end-stage renal disease on peritoneal dialysis, DM type II, CAD, HTN history of complete heart block, s/p pacemaker insertion, aortic valve, bicuspid, history of PE, peripheral vascular disease, s/p left great toe amputation,chronic left 2nd and 3rd toe wound, left well- healed heel ulcer, dry gangrene of right hand, who presents to the hospital with approximately 24 hours of increased confusion, lethargy, fever, chills/rigors 2/2 sepsis. Severe Sepsis, resolved MSSA bacteremia Left 2nd/3rd Digit Foot Osteomyelitis s/p amputation Right 4th/5th Digit Osteomyelitis s/p amputation -Foot MRI: OM of left 2nd and 3rd toes. -MRI L spine (done for concerns of reported back pain): no concerns for OM. -Admitting (10/10) Bl Cx: 4 out of 4 bottles growing MSSA -Repeat Bl cx 10/12: 1 of 4 bottle growing S. Aureus [Of note, pt underwent L toe amputation later morning of 10/12]. -Left foot operative Cx 10/12: MSSA, also growing Helococcus and Anaerococcus. -MRI Rt finger (4th and 5th) 10/13: osteomyelitis at the fourth and fifth distal phalanges. -Right ring finger operative Cx 10/14: staph and Enterobacter and cutibacterium growing, follow final results. Plan: -ID shaunna, recommends iv cefazolin daily. for 6 weeks from the date of last neg blood culture. ~Discussed with ID again 10/19 evening regarding additional growth in operative cultures, no new antibiotic coverage needed, continue with prior antibiotic plan. -Due to patient's increased need pt's states she won't be able to care at home ~Plan for peritoneal dialysis catheter removal and TDC placement prior to discharge Continue management as above per prior provider Needs follow-up with podiatry for suture removal Elevate left foot at rest and wear heel offloading boots at rest --Pathology: Marked acute osteomyelitis with superficial ulceration left second toe. Bone and soft tissue with mild reactive changes. Marked acute osteomyelitis with superficial ulceration left third toe. Unremarkable bone and soft tissue. Continue antibiotics as above Sepsis resolved Plan to discharge to rehab facility when accepted Abnormal CT chest Enlarging inflammatory nodules --CT Chest:Slightly worsened centrilobular interstitial infiltrates in the left upper lobe and bilateral lower lobes. This could be due to an atypical inflammatory process such as JEM infection. Interval increase in size and number of small pulmonary nodules. These may be inflammatory but are indeterminate in nature. A follow-up chest CT is recommended in 6 months. Emphysema. Mild right hilar adenopathy, nonspecific in nature. Splenomegaly --Needs follow-up with pulmonology with repeat CT in 3-6 months as outpatient Hyponatremia Sodium 131 today Continue fluid restriction Monitor sodium levels Appreciate nephrology input Back Pain Vitamin D deficiency -likely 2/2 deconditioning. vitamin D level low -increased vit D3 to 125 mcg daily -OOB few times a day and PT daily as able Appreciate pain management input Needs repeat vitamin D levels as outpatient Lumbar x-ray showed multilevel degenerative disc disease Continue pain control as needed Elevated high sensitive troponin Likely demand ischemia in setting of sepsis -Echocardiogram obtained; reviewed ESRD on dialysis Patient nephrology input Continue dialysis per nephrology DM II -SSI HTN -c/w home atenolol, torsemide and amlodipine. Monitor blood pressure Peripheral Vascular disease Multiple amputation history -vascular surgery consult, appreciate recs Hx CVA - left posterior frontal infarction in the MCA distribution in 2008, manifested by inability to spell a common word as well as a right centrum semiovale and right occipital lobe CVA 04/2014, manifested by left arm weakness that lasted several days before resolving. 04/2014 Carotid duplex showed < 50% carotid stenosis bilaterally (report scanned in [facility]). -06/2023 carotid duplex demonstrates less than 50% carotid stenosis b/l ICAs. --Continue aspirin, Plavix, statin Hx PE in 2010, treated with Coumadin for ~3 months. -No longer on anticoagulation Blurry Vision --MRI Brain: Progressive white matter disease likely on a small vessel ischemic basis. Multiple old cerebellar lacunar infarcts, old left thalamic lacunar infarct and old left frontal infarct. No acute infarcts identified. Progressive atrophy. Mild ventricular dilatation likely secondary to volume loss. -noted post operatively -no vision deficits -CT imaging with substantial vascular disease but no clear new infarct or hemorrhage Resolved DVT Px: Heparin SQ Code Status Full Code Disposition Rehab as able Admission and Anticipated Discharge Date Admission Date: October 10, 2024 Subjective Patient is seen and examined at bedside No complaints during my encounter this morning Family at bedside Reported lower back pain to RN Plan for dialysis tomorrow No other complaints today Review of Systems Review of Systems: All systems reviewed & are unremarkable except as noted in Subjective Physical Exam Physical Exam: Physical Exam: Vitals signs as noted above General Appearance:Moderately built and nourished, no apparent distress Head: normocephalic, Atraumatic Eyes: normal inspection, EOMI Neck: supple, Trachea midline Respiratory/Chest: Normal breath sounds, CTA, No accessory muscle use Cardiovascular: S1, S2, No murmur Abdomen/GI:Soft, Non tender, Bowel sounds present Extremities/Musculoskeletal:normal inspection, S/P toe amputation Neurologic/Psych:AAOX3, grossly no focal neurological deficits Skin: normal color, warm Results & Data Results & Data Vital Signs (Past 12 Hours) Vital Signs Temp Pulse Pulse Resp BP Pulse Ox O2 Del Method 10/27/24 13:07 76 10/27/24 12:04 36.2 C L 72 18 99/64 L 97 Room Air 10/27/24 08:25 70 124/82 10/27/24 08:15 Room Air 10/27/24 07:30 36.4 C L 69 18 103/56 L 96 Room Air 10/27/24 07:09 70 Laboratory Results Short CBC 10/27/24 Range/Units 06:35 WBC 10.34 (4.8-10.8) K/ul Hgb 10.1 L (14.0-18.0) g/dl Hct 31.0 L (42.0-52.0) % Plt Count 255 (130-400) K/uL BMP 10/27/24 06:35 Sodium 131 L Potassium 3.9 Chloride 95 L Carbon Dioxide 25 BUN 45 H D Creatinine 5.25 H* D Glucose 74 Calcium 8.9 (1) Sepsis Sepsis acute organ dysfunction status: with acute organ dysfunction Sepsis type: sepsis due to unspecified organism Severe sepsis acute organ dysfunction type: encephalopathy Severe sepsis shock status: without septic shock Qualified Code(s): A41.9 - Sepsis, unspecified organism; R65.20 - Severe sepsis without septic shock; G93.41 - Metabolic encephalopathy
--- NOTE | 2024-10-27 17:18 | Nephrology Progress Note ---
Date of Service October 27, 2024 Assessment & Plan (1) ESRD on peritoneal dialysis: Plan: patient does not have much residual renal function left as he makes only about 500ml of urine per day, has made as much as 1.2L on one day at least this admission he has been doing peritoneal dialysis through a nocturnal cycler at home for the last few months. Previously was on hemodialysis and has now changed back to HD for foreseeable future not only for rehab but b/c of carepartner fatigue/health issues ESRD secondary to diabetes hypertension and chronic diffuse vascular disease. fluid status acceptable labs appear acceptable through yesterday PD cath removed and C VAC placed on October 21 Undergoing chronic HD now since 10/21 and awaiting rehab dispo >cont routine HD w/ as aggressive uf as tolerated; next treatment October 31 - For HD next on 10/31 -- UF as tolerated to keep SBP> 100, low sodium-- keep on 1.2 lit FR while inpatient -->needs IV abx for 6 weeks but see below regarding avoiding PICC (2) Sepsis: Plan: PD fluid negative for peritonitis. No need of IP abx . ID eval done. MSSA bacteremia on 10/12 admission. ANI--negative. getting Some Amputations. Blood C/s from 10/14 so far negative. 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 >>>for Cefazolin for 6 weeks. >>> Requested primary service to dialogue with infectious diseases about appropriate antibiotic regimen that would avoid needing a PICC Admission and Anticipated Discharge Date Admission Date: October 10, 2024 Subjective Seen on dialysis. Some asymptomatic hypotension and we have cut back UF target. No shortness of breath no edema no chest pain no abdominal pain. Review of Systems 2 Review of Systems: All systems reviewed & are unremarkable except as noted in Subjective Physical Exam 2 Constitutional: well developed and well nourished Eyes: EOM intact bilaterally ENMT: Mouth: + dry oral mucous membranes Respiratory: normal respiratory effort Auscultation: + diminished lung sounds Cardiovascular: Rate/Rhythm: regular rate and regular rhythm Extremities: n o edema Gastrointestinal (Abdomen): Inspection/Auscultation: normal bowel sounds P ercussion/Palpation: abdomen soft; abdomen nontender Musculoskeletal: Extremities: strength 5/5 throughout Skin: no rashes, warm and dry Results & Data Vital Signs (Past 12 Hours) Vital Signs Temp Pulse Pulse Resp BP Pulse Ox O2 Del Method 10/27/24 13:07 76 10/27/24 12:04 36.2 C L 72 18 99/64 L 97 Room Air 10/27/24 08:25 70 124/82 10/27/24 08:15 Room Air 10/27/24 07:30 36.4 C L 69 18 103/56 L 96 Room Air 10/27/24 07:09 70 Laboratory Results 10/27/24 06:35 10/27/24 06:35 (2) Sepsis Sepsis acute organ dysfunction status: with acute organ dysfunction Sepsis type: sepsis due to unspecified organism Severe sepsis acute organ dysfunction type: encephalopathy Severe sepsis shock status: without septic shock Qualified Code(s): A41.9 - Sepsis, unspecified organism; R65.20 - Severe sepsis without septic shock; G93.41 - Metabolic encephalopathy
[2024-10-28 06:16] LABS: Hematocrit (blood only) 28.5 % (42.0-52.0); Hemoglobin 9.6 g/dl (14.0-18.0); Mean Corpuscular Hemoglobin 31.8 pg (25.0-34.0); Mean Corpuscular Volume 94.4 fL (80.0-100.0); Platelet Count 255 K/uL (130-400); RDW Standard Deviation 50.1 fL (36.4-46.3); Red Blood Count 3.02 M/uL (4.70-6.10); White Blood Count 10.15 K/ul (4.8-10.8)
[2024-10-28 06:39] LABS: Anion Gap 11.0 (3-11); Blood Urea Nitrogen 64.0 mg/dl (6-23); Calcium 8.7 mg/dl (8.6-10.3); Carbon Dioxide 25.0 mmol/L (21-32); Chloride 93.0 mmol/L (98-107); Creatinine Clr Calc Pharmacy 14.0 ml/min; Glucose 148.0 mg/dl (70-99(Fasting)); Potassium 4.1 mmol/L (3.5-5.1); Sodium 129.0 mmol/L (136-145)
[2024-10-28] MEDS ORDERED: SODIUM CHLORIDE 0.9% 1,000 ML IV PRN (07:00)
[2024-10-28] MEDS: EPOETIN ALFA 10,000 UNITS/ML VIAL IV ONE (10:47)
[2024-10-28] MEDS: HEPARIN SOD (PORCINE) 1000 UNIT/ML IV ONE (12:26)
[2024-10-28] MEDS: HEPARIN SOD (PORCINE) 1000 UNIT/ML IV SCH (12:28)
--- NOTE | 2024-10-28 14:01 | Pharmacy Report ---
Pharmacy Glycemic Short Note 2 - Date of Service October 28, 2024 - Glycemic Short BSG Results (Last 24 hours): 10/27/24 10/27/24 10/28/24 17:04 20:41 05:37 Glucose 148 H POC Glucose 123 H 179 H 10/28/24 08:00 Glucose POC Glucose 162 H OUTPATIENT ANTIDIABETIC REGIMEN: * NovoLog 5 units SQ QAM, 10 units @ noon, 10 units in afternoon, CF 20 >140mg/dL * Lantus 20 untis SQ BID * HbA1c is unreliable in ESRD patients d/t interactions between the A1c analyzing technique and high levels of urea in ESRD, reduced RBC life span, iron deficiency anemia, and EPO administration. HbA1c > 7.5% in ESRD patient may overestimate the extent of hyperglycemia in ESRD patients. ASSESSMENT: 10/28 * Patient received total of 51 units of insulin yesterday, of which 15 units were basal * Fasting BSG 148 mg/dL - continue with scale for basal at HS * HD again today, continue same CF/CR 10/26 * Patient received total of 59 units of insulin yesterday, of which 30 units were basal insulin * Fasting BSG 76 mg/dL - will hold AM lantus and decrease basal starting tonight with scale * No change to Cf/CR 10/25 * Patient received total of 64 units of insulin yesterday of which 30 units were basal * Fasting BSG within range 105 mg/dL - no change * Continue same CF/CR for now 10/23 * Otto received a total of 50 units of SQ insulin yesterday (20 units basal + 30 units bolus). * Fasting BSG = 174 mg/dL today. Oral intake improved. Will resume BID dosing of Lantus. * HD catheter placed on 10/21. Patient had 4 hour HD session that day. 10/21: * BSGs 575-323-29-123mg/dL the last 24h. Received 40units of basal and 27 units of bolus insulin yesterday. * NPO this AM for HD cath placement and remains NPO this afternoon. AM Lantus held by nursing this morning given fasting BSG in 90s and prolonged NPO status. * Resume Lantus 20 units tonight and then reassess basal in AM. No change to Novolog. 10/20: * Patient received 64 units of insulin yesterday, 40 of which were basal. BSGs have been well controlled over the past 24 hours: [phone] mg/dL * Fasting BSG remains adequate at 115 mg/dL. * Patient is ordered and tolerating a diet. * Plan to transition to HD tomorrow from PD. 10/18 * Patient has received 25 units BID per scale x last 3 days- fasting within range, will schedule * BSGs slightly lower than goal with lunch/dinner yesterday but not hypoglycemic. Patient has refused with insulin with dinner leading to high HS blood sugar. Will loosen carb ratio slightly to try and maintain BSG 110-140 mg/dL 10/14 * NPO for OR this AM * Fasting BSG elevated this AM. Increased lantus sliding scale. * Tightened CF and CR 2nd elevated post-prandial glucose. 10/13 * Diet resumed this AM after ANI * Fasting BSG elevated. Will increase Lantus * One post-prandial BSG elevated yesterday after tightening Novolog parameters. Will not make further adjustments for now, but may consider tightening Novolog parameters if post-prandial BSG's remain elevated. PLAN FOR INPATIENT GLYCEMIC CONTROL: * Hold outpatient oral diabetes medications * Basal insulin * Lantus 10-20 units HS * Bolus insulin * NovoLog per scale ACHS or Q6hrs while NPO * Goal Range: Low 110 mg/dL - High 140 mg/dL * Correction Factor: 20 mg/dL/unit * Nutritional / Prandial insulin per carb ratio of 1 unit per 7 grams CHO consumed
--- NOTE | 2024-10-28 15:42 | Hospitalist Progress Note ---
Date of Service October 28, 2024 Assessment & Plan (1) Sepsis: (2) Diabetes mellitus: (3) Diabetic peripheral neuropathy associated with type 2 diabetes mellitus: (4) Peripheral vascular disease: (5) ESRD on peritoneal dialysis: (6) HTN (hypertension): (7) S/P cardiac pacemaker procedure: (8) History of diabetic ulcer of foot: Plan Patient is a 64 yr male with PMHx of end-stage renal disease on peritoneal dialysis, DM type II, CAD, HTN history of complete heart block, s/p pacemaker insertion, aortic valve, bicuspid, history of PE, peripheral vascular disease, s/p left great toe amputation,chronic left 2nd and 3rd toe wound, left well- healed heel ulcer, dry gangrene of right hand, who presents to the hospital with approximately 24 hours of increased confusion, lethargy, fever, chills/rigors 2/2 sepsis. Severe Sepsis, resolved MSSA bacteremia Left 2nd/3rd Digit Foot Osteomyelitis s/p amputation Right 4th/5th Digit Osteomyelitis s/p amputation -Foot MRI: OM of left 2nd and 3rd toes. -MRI L spine (done for concerns of reported back pain): no concerns for OM. -Admitting (10/10) Bl Cx: 4 out of 4 bottles growing MSSA -Repeat Bl cx 10/12: 1 of 4 bottle growing S. Aureus [Of note, pt underwent L toe amputation later morning of 10/12]. -Left foot operative Cx 10/12: MSSA, also growing Helococcus and Anaerococcus. -MRI Rt finger (4th and 5th) 10/13: osteomyelitis at the fourth and fifth distal phalanges. -Right ring finger operative Cx 10/14: staph and Enterobacter and cutibacterium growing, follow final results. Plan: -ID shaunna, recommends iv cefazolin daily. for 6 weeks from the date of last neg blood culture. ~Discussed with ID again 10/19 evening regarding additional growth in operative cultures, no new antibiotic coverage needed, continue with prior antibiotic plan. -Due to patient's increased need pt's states she won't be able to care at home ~Plan for peritoneal dialysis catheter removal and TDC placement prior to discharge Continue management as above per prior provider Needs follow-up with podiatry for suture removal Elevate left foot at rest and wear heel offloading boots at rest --Pathology: Marked acute osteomyelitis with superficial ulceration left second toe. Bone and soft tissue with mild reactive changes. Marked acute osteomyelitis with superficial ulceration left third toe. Unremarkable bone and soft tissue. Plan to discharge to rehab facility when accepted Discussed with ID today: Agrees to continue 6-week course of IV cefazolin given valvular heart disease Needs PICC line placed prior to discharge Abnormal CT chest Enlarging inflammatory nodules --CT Chest:Slightly worsened centrilobular interstitial infiltrates in the left upper lobe and bilateral lower lobes. This could be due to an atypical inflammatory process such as JEM infection. Interval increase in size and number of small pulmonary nodules. These may be inflammatory but are indeterminate in nature. A follow-up chest CT is recommended in 6 months. Emphysema. Mild right hilar adenopathy, nonspecific in nature. Splenomegaly --Needs follow-up with pulmonology with repeat CT in 3-6 months as outpatient Hyponatremia Sodium 129 today Continue fluid restriction Monitor sodium levels Appreciate nephrology input Back Pain Vitamin D deficiency -likely 2/2 deconditioning. vitamin D level low -increased vit D3 to 125 mcg daily -OOB few times a day and PT daily as able Appreciate pain management input Needs repeat vitamin D levels as outpatient Lumbar x-ray showed multilevel degenerative disc disease Continue pain control as needed Elevated high sensitive troponin Likely demand ischemia in setting of sepsis -Echocardiogram obtained; reviewed ESRD on dialysis Patient nephrology input Continue dialysis per nephrology DM II -SSI HTN -c/w home atenolol, torsemide and amlodipine. Monitor blood pressure Peripheral Vascular disease Multiple amputation history -vascular surgery consult, appreciate recs Hx CVA - left posterior frontal infarction in the MCA distribution in 2008, manifested by inability to spell a common word as well as a right centrum semiovale and right occipital lobe CVA 04/2014, manifested by left arm weakness that lasted several days before resolving. 04/2014 Carotid duplex showed < 50% carotid stenosis bilaterally (report scanned in epic). -06/2023 carotid duplex demonstrates less than 50% carotid stenosis b/l ICAs. --Continue aspirin, Plavix, statin Hx PE in 2010, treated with Coumadin for ~3 months. -No longer on anticoagulation Blurry Vision --MRI Brain: Progressive white matter disease likely on a small vessel ischemic basis. Multiple old cerebellar lacunar infarcts, old left thalamic lacunar infarct and old left frontal infarct. No acute infarcts identified. Progressive atrophy. Mild ventricular dilatation likely secondary to volume loss. -noted post operatively -no vision deficits -CT imaging with substantial vascular disease but no clear new infarct or hemorrhage Resolved DVT Px: Heparin SQ Code Status Full Code Disposition Rehab when accepted Admission and Anticipated Discharge Date Admission Date: October 10, 2024 Subjective Patient is seen and examined at bedside Back pain is better when compared to yesterday Was having dialysis during my encounter this morning Discussed with infectious disease and nephrology today No new complaints Waiting for placement Review of Systems Review of Systems: All systems reviewed & are unremarkable except as noted in Subjective Physical Exam Physical Exam: Physical Exam: Vitals signs as noted above General Appearance:Moderately built and nourished, no apparent distress Head: normocephalic, Atraumatic Eyes: normal inspection, EOMI Neck: supple, Trachea midline Respiratory/Chest: Normal breath sounds, CTA, No accessory muscle use Cardiovascular: S1, S2, No murmur Abdomen/GI:Soft, Non tender, Bowel sounds present Extremities/Musculoskeletal:normal inspection, S/P toe amputation Neurologic/Psych:AAOX3, grossly no focal neurological deficits Skin: normal color, warm Results & Data Results & Data Vital Signs (Past 12 Hours) Vital Signs Temp Pulse Pulse Pulse Resp BP BP 10/28/24 15:00 70 10/28/24 13:58 36.5 C 72 18 120/92 10/28/24 13:38 36.3 C L 66 10/28/24 13:28 65 115/64 10/28/24 13:00 69 103/56 L 10/28/24 12:30 67 90/47 L 10/28/24 12:00 68 108/58 L 10/28/24 11:30 67 96/56 L 10/28/24 11:00 63 88/52 L 10/28/24 10:30 64 95/68 L 10/28/24 10:00 60 109/66 10/28/24 09:30 63 108/57 L 10/28/24 09:28 61 114/67 10/28/24 09:21 36.3 C L 54 L 10/28/24 07:51 36.3 C L 68 20 136/61 10/28/24 06:57 66 10/28/24 03:52 36.5 C 71 18 135/69 BP Pulse Ox O2 Del Method 10/28/24 15:00 10/28/24 13:58 96 Room Air 10/28/24 13:38 96/52 L 10/28/24 13:28 10/28/24 13:00 10/28/24 12:30 10/28/24 12:00 10/28/24 11:30 10/28/24 11:00 10/28/24 10:30 10/28/24 10:00 10/28/24 09:30 10/28/24 09:28 10/28/24 09:21 10/28/24 07:51 98 Room Air 10/28/24 06:57 10/28/24 03:52 96 Room Air Laboratory Results Short CBC 10/28/24 Range/Units 05:37 WBC 10.15 (4.8-10.8) K/ul Hgb 9.6 L (14.0-18.0) g/dl Hct 28.5 L (42.0-52.0) % Plt Count 255 (130-400) K/uL BMP 10/28/24 05:37 Sodium 129 L Potassium 4.1 Chloride 93 L Carbon Dioxide 25 BUN 64 H Creatinine 6.80 H* D Glucose 148 H Calcium 8.7 (1) Sepsis Sepsis acute organ dysfunction status: with acute organ dysfunction Sepsis type: sepsis due to unspecified organism Severe sepsis acute organ dysfunction type: encephalopathy Severe sepsis shock status: without septic shock Qualified Code(s): A41.9 - Sepsis, unspecified organism; R65.20 - Severe sepsis without septic shock; G93.41 - Metabolic encephalopathy
--- NOTE | 2024-10-29 15:33 | Nephrology Progress Note ---
Date of Service October 29, 2024 Assessment & Plan (1) Sepsis: Plan: PD fluid negative for peritonitis. No need of IP abx . ID eval done. MSSA bacteremia on 10/12 admission. ANI--negative. getting Some Amputations. Blood C/s from 10/14 so far negative. 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 >>>for Cefazolin for 6 weeks. -Consider antibiotic regimen 3 times weekly that would avoid needing a PICC (2) End stage renal disease on dialysis: Plan: patient does not have much residual renal function left as he makes only about 500ml of urine per day, has made as much as 1.2L on one day at least this admission Previously was on hemodialysis the PD and has now changed back to HD for foreseeable future not only for rehab but b/c of care-partner fatigue/health issues ESRD secondary to diabetes hypertension and chronic diffuse vascular disease. fluid status acceptable PD cath removed and C VAC placed on October 21. Had HD on 10/28. -Next HD Tuesday 10/31 Admission and Anticipated Discharge Date Admission Date: October 10, 2024 Subjective Seen for ESRD. He feels better. no SOB or leg swelling. No fevers. Review of Systems 2 Review of Systems: All other systems were reviewed and negative except as noted in HPI Physical Exam 2 Physical Exam: General exam: Appears comfortable, no acute distress HEENT: Pupils are equal and reactive to light Neck: No JVD, neck is supple trachea is midline Respiratory system: Clear breath sounds bilaterally. Gastrointestinal: Abdomen is soft, non distended, non tender, bowel sounds are present CVS: Regular rate and rhythm. No murmurs, rubs or gallops Musculoskeletal: No joint or muscle tenderness Extremities: Non tender, no edema, peripheral pulses are present Neuro: Oriented, no tremors, no focal neurological deficits Skin: No rashes Results & Data Vital Signs (Past 12 Hours) Vital Signs Temp Pulse Pulse Resp BP BP Pulse Ox 10/29/24 11:48 36.5 C 65 16 134/68 97 10/29/24 08:00 36.4 C L 68 18 114/71 97 10/29/24 05:43 67 10/29/24 03:35 36.7 C 70 18 135/73 92 O2 Del Method 10/29/24 11:48 Room Air 10/29/24 08:00 Room Air 10/29/24 05:43 10/29/24 03:35 Room Air Laboratory Results 10/28/24 05:37 (1) Sepsis Sepsis acute organ dysfunction status: with acute organ dysfunction Sepsis type: sepsis due to unspecified organism Severe sepsis acute organ dysfunction type: encephalopathy Severe sepsis shock status: without septic shock Qualified Code(s): A41.9 - Sepsis, unspecified organism; R65.20 - Severe sepsis without septic shock; G93.41 - Metabolic encephalopathy
--- NOTE | 2024-10-29 16:36 | Hospitalist Progress Note ---
Date of Service October 29, 2024 Assessment & Plan (1) Sepsis: (2) Diabetes mellitus: (3) Diabetic peripheral neuropathy associated with type 2 diabetes mellitus: (4) Peripheral vascular disease: (5) ESRD on peritoneal dialysis: (6) HTN (hypertension): (7) S/P cardiac pacemaker procedure: (8) History of diabetic ulcer of foot: Plan Patient is a 64 yr male with PMHx of end-stage renal disease on peritoneal dialysis, DM type II, CAD, HTN history of complete heart block, s/p pacemaker insertion, aortic valve, bicuspid, history of PE, peripheral vascular disease, s/p left great toe amputation,chronic left 2nd and 3rd toe wound, left well- healed heel ulcer, dry gangrene of right hand, who presents to the hospital with approximately 24 hours of increased confusion, lethargy, fever, chills/rigors 2/2 sepsis. Severe Sepsis, resolved MSSA bacteremia Left 2nd/3rd Digit Foot Osteomyelitis s/p amputation Right 4th/5th Digit Osteomyelitis s/p amputation -Foot MRI: OM of left 2nd and 3rd toes. -MRI L spine (done for concerns of reported back pain): no concerns for OM. -Admitting (10/10) Bl Cx: 4 out of 4 bottles growing MSSA -Repeat Bl cx 10/12: 1 of 4 bottle growing S. Aureus [Of note, pt underwent L toe amputation later morning of 10/12]. -Left foot operative Cx 10/12: MSSA, also growing Helococcus and Anaerococcus. -MRI Rt finger (4th and 5th) 10/13: osteomyelitis at the fourth and fifth distal phalanges. -Right ring finger operative Cx 10/14: staph and Enterobacter and cutibacterium growing, follow final results. Plan: -ID shaunna, recommends iv cefazolin daily. for 6 weeks from the date of last neg blood culture. ~Discussed with ID again 10/19 evening regarding additional growth in operative cultures, no new antibiotic coverage needed, continue with prior antibiotic plan. -Due to patient's increased need pt's states she won't be able to care at home ~Plan for peritoneal dialysis catheter removal and TDC placement prior to discharge Continue management as above per prior provider Needs follow-up with podiatry for suture removal Elevate left foot at rest and wear heel offloading boots at rest --Pathology: Marked acute osteomyelitis with superficial ulceration left second toe. Bone and soft tissue with mild reactive changes. Marked acute osteomyelitis with superficial ulceration left third toe. Unremarkable bone and soft tissue. Discussed with ID on 10/28/24: Agrees to continue 6-week course of IV cefazolin given valvular heart disease. Needs PICC line PICC line consent obtained on 10/29/2024 Waiting for placement Abnormal CT chest Enlarging inflammatory nodules --CT Chest:Slightly worsened centrilobular interstitial infiltrates in the left upper lobe and bilateral lower lobes. This could be due to an atypical inflammatory process such as JEM infection. Interval increase in size and number of small pulmonary nodules. These may be inflammatory but are indeterminate in nature. A follow-up chest CT is recommended in 6 months. Emphysema. Mild right hilar adenopathy, nonspecific in nature. Splenomegaly --Needs follow-up with pulmonology with repeat CT in 3-6 months as outpatient Hyponatremia Last sodium level 129 Continue fluid restriction Monitor sodium levels Appreciate nephrology input Back Pain Vitamin D deficiency -likely 2/2 deconditioning. vitamin D level low -increased vit D3 to 125 mcg daily -OOB few times a day and PT daily as able Appreciate pain management input Needs repeat vitamin D levels as outpatient Lumbar x-ray showed multilevel degenerative disc disease Continue pain control as needed Elevated high sensitive troponin Likely demand ischemia in setting of sepsis -Echocardiogram obtained; reviewed ESRD on dialysis Patient nephrology input Continue dialysis per nephrology DM II -SSI HTN -c/w home atenolol, torsemide and amlodipine. Monitor blood pressure Peripheral Vascular disease Multiple amputation history -vascular surgery consult, appreciate recs Hx CVA - left posterior frontal infarction in the MCA distribution in 2008, manifested by inability to spell a common word as well as a right centrum semiovale and right occipital lobe CVA 04/2014, manifested by left arm weakness that lasted several days before resolving. 04/2014 Carotid duplex showed < 50% carotid stenosis bilaterally (report scanned in [facility]). -06/2023 carotid duplex demonstrates less than 50% carotid stenosis b/l ICAs. --Continue aspirin, Plavix, statin Hx PE in 2010, treated with Coumadin for ~3 months. -No longer on anticoagulation Blurry Vision --MRI Brain: Progressive white matter disease likely on a small vessel ischemic basis. Multiple old cerebellar lacunar infarcts, old left thalamic lacunar infarct and old left frontal infarct. No acute infarcts identified. Progressive atrophy. Mild ventricular dilatation likely secondary to volume loss. -noted post operatively -no vision deficits -CT imaging with substantial vascular disease but no clear new infarct or hemorrhage Resolved DVT Px: Heparin SQ Code Status Full Code Disposition Rehab when accepted Admission and Anticipated Discharge Date Admission Date: October 10, 2024 Subjective Patient is seen and examined at bedside Offers no new complaints Stable for discharge Waiting for placement Review of Systems Review of Systems: All systems reviewed & are unremarkable except as noted in Subjective Physical Exam Physical Exam: Physical Exam: Vitals signs as noted above General Appearance:Moderately built and nourished, no apparent distress Head: normocephalic, Atraumatic Eyes: normal inspection, EOMI Neck: supple, Trachea midline Respiratory/Chest: Normal breath sounds, CTA, No accessory muscle use Cardiovascular: S1, S2, No murmur Abdomen/GI:Soft, Non tender, Bowel sounds present Extremities/Musculoskeletal:normal inspection, S/P toe amputation Neurologic/Psych:AAOX3, grossly no focal neurological deficits Skin: normal color, warm Results & Data Results & Data Vital Signs (Past 12 Hours) Vital Signs Temp Pulse Pulse Resp BP BP Pulse Ox 10/29/24 13:00 68 10/29/24 11:48 36.5 C 65 16 134/68 97 10/29/24 08:00 36.4 C L 68 18 114/71 97 10/29/24 05:43 67 O2 Del Method 10/29/24 13:00 10/29/24 11:48 Room Air 10/29/24 08:00 Room Air 10/29/24 05:43 (1) Sepsis Sepsis acute organ dysfunction status: with acute organ dysfunction Sepsis type: sepsis due to unspecified organism Severe sepsis acute organ dysfunction type: encephalopathy Severe sepsis shock status: without septic shock Qualified Code(s): A41.9 - Sepsis, unspecified organism; R65.20 - Severe sepsis without septic shock; G93.41 - Metabolic encephalopathy
--- NOTE | 2024-10-30 12:57 | Nephrology Progress Note ---
Date of Service October 30, 2024 Assessment & Plan (1) Sepsis: Plan: PD fluid negative for peritonitis. No need of IP abx . ID eval done. MSSA bacteremia on 10/12 admission. ANI--negative. getting Some Amputations. Blood C/s from 10/14 so far negative. 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 he has pus like urine today. Will get cultures and sensitivity >>>for Cefazolin for 6 weeks. -Consider antibiotic regimen 3 times weekly that would avoid needing a PICC (2) End stage renal disease on dialysis: Plan: patient does not have much residual renal function left as he makes only about 500ml of urine per day, has made as much as 1.2L on one day at least this admission Previously was on hemodialysis the [facility] and has now changed back to HD for foreseeable future not only for rehab but b/c of care-partner fatigue/health issues ESRD secondary to diabetes hypertension and chronic diffuse vascular disease. fluid status acceptable PD cath removed and C VAC placed on October 21. Had HD on 10/28. -Next HD Tuesday 10/31 Admission and Anticipated Discharge Date Admission Date: October 10, 2024 Subjective Seen for ESRD. No SOB. he is concerned about cloudy urine almost pus like today Review of Systems 2 Review of Systems: All other systems were reviewed and negative except as noted in HPI Physical Exam 2 Physical Exam: General exam: Appears comfortable, no acute distress HEENT: Pupils are equal and reactive to light Neck: No JVD, neck is supple trachea is midline Respiratory system: Clear breath sounds bilaterally. Gastrointestinal: Abdomen is soft, non distended, non tender, bowel sounds are present CVS: Regular rate and rhythm. No murmurs, rubs or gallops Musculoskeletal: No joint or muscle tenderness Extremities: Non tender, no edema, peripheral pulses are present Neuro: Oriented, no tremors, no focal neurological deficits Skin: No rashes Results & Data Vital Signs (Past 12 Hours) Vital Signs Temp Pulse Pulse Resp BP Pulse Ox O2 Del Method 10/30/24 11:55 Room Air 10/30/24 08:12 36.5 C 69 16 119/64 98 Room Air 10/30/24 05:35 62 10/30/24 02:42 36.5 C 70 16 102/56 L 97 Room Air Laboratory Results 10/28/24 05:37 (1) Sepsis Sepsis acute organ dysfunction status: with acute organ dysfunction Sepsis type: sepsis due to unspecified organism Severe sepsis acute organ dysfunction type: encephalopathy Severe sepsis shock status: without septic shock Qualified Code(s): A41.9 - Sepsis, unspecified organism; R65.20 - Severe sepsis without septic shock; G93.41 - Metabolic encephalopathy
--- NOTE | 2024-10-30 15:11 | Hospitalist Progress Note ---
Date of Service October 30, 2024 Assessment & Plan (1) Sepsis: (2) Diabetes mellitus: (3) Diabetic peripheral neuropathy associated with type 2 diabetes mellitus: (4) Peripheral vascular disease: (5) ESRD on peritoneal dialysis: (6) HTN (hypertension): (7) S/P cardiac pacemaker procedure: (8) History of diabetic ulcer of foot: Plan Patient is a 64 yr male with PMHx of end-stage renal disease on peritoneal dialysis, DM type II, CAD, HTN history of complete heart block, s/p pacemaker insertion, aortic valve, bicuspid, history of PE, peripheral vascular disease, s/p left great toe amputation,chronic left 2nd and 3rd toe wound, left well- healed heel ulcer, dry gangrene of right hand, who presents to the hospital with approximately 24 hours of increased confusion, lethargy, fever, chills/rigors 2/2 sepsis. Severe Sepsis, resolved MSSA bacteremia Left 2nd/3rd Digit Foot Osteomyelitis s/p amputation Right 4th/5th Digit Osteomyelitis s/p amputation -Foot MRI: OM of left 2nd and 3rd toes. -MRI L spine (done for concerns of reported back pain): no concerns for OM. -Admitting (10/10) Bl Cx: 4 out of 4 bottles growing MSSA -Repeat Bl cx 10/12: 1 of 4 bottle growing S. Aureus [Of note, pt underwent L toe amputation later morning of 10/12]. -Left foot operative Cx 10/12: MSSA, also growing Helococcus and Anaerococcus. -MRI Rt finger (4th and 5th) 10/13: osteomyelitis at the fourth and fifth distal phalanges. -Right ring finger operative Cx 10/14: staph and Enterobacter and cutibacterium growing, follow final results. Plan: -ID shaunna, recommends iv cefazolin daily. for 6 weeks from the date of last neg blood culture. ~Discussed with ID again 10/19 evening regarding additional growth in operative cultures, no new antibiotic coverage needed, continue with prior antibiotic plan. -Due to patient's increased need pt's states she won't be able to care at home ~Plan for peritoneal dialysis catheter removal and TDC placement prior to discharge Continue management as above per prior provider Needs follow-up with podiatry for suture removal Elevate left foot at rest and wear heel offloading boots at rest --Pathology: Marked acute osteomyelitis with superficial ulceration left second toe. Bone and soft tissue with mild reactive changes. Marked acute osteomyelitis with superficial ulceration left third toe. Unremarkable bone and soft tissue. Discussed with ID on 10/28/24: Agrees to continue 6-week course of IV cefazolin given valvular heart disease. Needs PICC line PICC line consent obtained on 10/29/2024 Waiting for placement Continue current management Suspected UTI Obtain urine culture Afebrile Abnormal CT chest Enlarging inflammatory nodules --CT Chest:Slightly worsened centrilobular interstitial infiltrates in the left upper lobe and bilateral lower lobes. This could be due to an atypical inflammatory process such as JEM infection. Interval increase in size and number of small pulmonary nodules. These may be inflammatory but are indeterminate in nature. A follow-up chest CT is recommended in 6 months. Emphysema. Mild right hilar adenopathy, nonspecific in nature. Splenomegaly --Needs follow-up with pulmonology with repeat CT in 3-6 months as outpatient Hyponatremia Last sodium level 129 Continue fluid restriction Monitor sodium levels Appreciate nephrology input Back Pain Vitamin D deficiency -likely 2/2 deconditioning. vitamin D level low -increased vit D3 to 125 mcg daily -OOB few times a day and PT daily as able Appreciate pain management input Needs repeat vitamin D levels as outpatient Lumbar x-ray showed multilevel degenerative disc disease Continue pain control as needed Elevated high sensitive troponin Likely demand ischemia in setting of sepsis -Echocardiogram obtained; reviewed ESRD on dialysis Patient nephrology input Continue dialysis per nephrology DM II -SSI HTN -c/w home atenolol, torsemide and amlodipine. Monitor blood pressure Peripheral Vascular disease Multiple amputation history -vascular surgery consult, appreciate recs Hx CVA - left posterior frontal infarction in the MCA distribution in 2008, manifested by inability to spell a common word as well as a right centrum semiovale and right occipital lobe CVA 04/2014, manifested by left arm weakness that lasted several days before resolving. 04/2014 Carotid duplex showed < 50% carotid stenosis bilaterally (report scanned in [facility]). -06/2023 carotid duplex demonstrates less than 50% carotid stenosis b/l ICAs. --Continue aspirin, Plavix, statin Hx PE in 2010, treated with Coumadin for ~3 months. -No longer on anticoagulation Blurry Vision --MRI Brain: Progressive white matter disease likely on a small vessel ischemic basis. Multiple old cerebellar lacunar infarcts, old left thalamic lacunar infarct and old left frontal infarct. No acute infarcts identified. Progressive atrophy. Mild ventricular dilatation likely secondary to volume loss. 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 urine Plan for dialysis tomorrow Waiting for placement Review of Systems Review of Systems: All systems reviewed & are unremarkable except as noted in Subjective Physical Exam Physical Exam: Physical Exam: Vitals signs as noted above General Appearance:Moderately built and nourished, no apparent distress Head: normocephalic, Atraumatic Eyes: normal inspection, EOMI Neck: supple, Trachea midline Respiratory/Chest: Normal breath sounds, CTA, No accessory muscle use Cardiovascular: S1, S2, No murmur Abdomen/GI:Soft, Non tender, Bowel sounds present Extremities/Musculoskeletal:normal inspection, S/P toe amputation Neurologic/Psych:AAOX3, grossly no focal neurological deficits Skin: normal color, warm Results & Data Results & Data Vital Signs (Past 12 Hours) Vital Signs Temp Pulse Pulse Resp BP Pulse Ox O2 Del Method 10/30/24 13:02 71 10/30/24 11:55 Room Air 10/30/24 08:12 36.5 C 69 16 119/64 98 Room Air 10/30/24 05:35 62 (1) Sepsis Sepsis acute organ dysfunction status: with acute organ dysfunction Sepsis type: sepsis due to unspecified organism Severe sepsis acute organ dysfunction type: encephalopathy Severe sepsis shock status: without septic shock Qualified Code(s): A41.9 - Sepsis, unspecified organism; R65.20 - Severe sepsis without septic shock; G93.41 - Metabolic encephalopathy
[2024-10-30] MEDS: LANTUS PER UNIT CHARGE SC SCH (21:05)
[2024-10-31] MEDS ORDERED: SODIUM CHLORIDE 0.9% 1,000 ML IV PRN (07:00)
[2024-10-31 08:33] LABS: Anion Gap 12.0 (3-11); Blood Urea Nitrogen 95.0 mg/dl (6-23); Calcium 8.4 mg/dl (8.6-10.3); Carbon Dioxide 24.0 mmol/L (21-32); Chloride 93.0 mmol/L (98-107); Creatinine Clr Calc Pharmacy 12.3 ml/min; Glucose 129.0 mg/dl (70-99(Fasting)); Potassium 5.1 mmol/L (3.5-5.1); Sodium 129.0 mmol/L (136-145)
[2024-10-31] MEDS: MUPIROCIN 2% OINT 22 GM TUBE EXT SCH (08:46)
--- NOTE | 2024-10-31 10:47 | Dialysis Progress Note ---
Date of Service October 31, 2024 Assessment & Plan Admission and Anticipated Discharge Date Admission Date: October 10, 2024 Subjective Assessment & Plan (1) Sepsis: Plan: PD fluid negative for peritonitis. No need of IP abx . ID eval done. MSSA bacteremia on 10/12 admission. ANI--negative. getting Some Amputations. Blood C/s from 10/14 so far negative. 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 he has pus like urine today. Will get cultures and sensitivity ID first said For Cefazolin for 6 weeks. Consider antibiotic regimen 3 times weekly that would avoid needing a PICC--Now that he is chronic HD (2) End stage renal disease on dialysis: Plan: patient does not have much residual renal function left as he makes only about 500ml of urine per day, has made as much as 1.2L on one day at least this admission Previously was on hemodialysis the PD and has now changed back to HD for foreseeable future not only for rehab but b/c of care-partner fatigue/health issues Will take 3 kilo off today. hgb is low and will give 10K procrit. ESRD secondary to diabetes hypertension and chronic diffuse vascular disease. fluid status acceptable PD cath removed and CVC placed on October 21. On MWF schedule currently. Subjective Seen During dialysis. for ESRD. No SOB. still waiting for rehab placement. CVC fine Review of Systems Review of Systems: All other systems were reviewed and negative except as noted in HPI Physical Exam Physical Exam: General exam: Appears comfortable, no acute distress HEENT: Pupils are equal and reactive to light Neck: No JVD, neck is supple trachea is midline Respiratory system: Clear breath sounds bilaterally. Gastrointestinal: Abdomen is soft, non distended, non tender, bowel sounds are present CVS: Regular rate and rhythm. No murmurs, rubs or gallops Musculoskeletal: No joint or muscle tenderness Extremities: Non tender, no edema, peripheral pulses are present Neuro: Oriented, no tremors, no focal neurological deficits Skin: No rashes Results & Data Vital Signs (Past 12 Hours) Vital Signs Temp Pulse Pulse Resp BP Pulse Ox O2 Del Method 10/31/24 07:57 36.5 C 70 16 136/80 97 Room Air 10/31/24 05:59 64 10/31/24 03:59 36.7 C 65 18 130/78 96 Room Air 10/30/24 22:48 36.5 C 65 18 129/59 L 96 Room Air
[2024-10-31] MEDS: HEPARIN SOD (PORCINE) 1000 UNIT/ML IV ONE (14:07)
[2024-10-31] MEDS: EPOETIN ALFA 10,000 UNITS/ML VIAL IV ONE (14:17)
--- NOTE | 2024-10-31 15:24 | Pharmacy Report ---
Pharmacy Glycemic Short Note 2 - Date of Service October 31, 2024 - Glycemic Short BSG Results (Last 24 hours): 10/30/24 10/30/24 10/31/24 16:54 20:31 07:23 Glucose 129 H POC Glucose 180 H 126 H 10/31/24 08:30 Glucose POC Glucose 142 H OUTPATIENT ANTIDIABETIC REGIMEN: * NovoLog 5 units SQ QAM, 10 units @ noon, 10 units in afternoon, CF 20 >140mg/dL * Lantus 20 untis SQ BID * HbA1c is unreliable in ESRD patients d/t interactions between the A1c analyzing technique and high levels of urea in ESRD, reduced RBC life span, iron deficiency anemia, and EPO administration. HbA1c > 7.5% in ESRD patient may overestimate the extent of hyperglycemia in ESRD patients. ASSESSMENT: 10/31 * Otto received a total of 60 units of insulin yesterday (18 units were basal and 42 units were bolus). * Fasting BSG was 142mg/dL this morning. Patient is scheduled for HD today. Will continue Basal and bolus insulin regimens as ordered without change 10/28 * Patient received total of 51 units of insulin yesterday, of which 15 units were basal * Fasting BSG 148 mg/dL - continue with scale for basal at HS * HD again today, continue same CF/CR 10/26 * Patient received total of 59 units of insulin yesterday, of which 30 units were basal insulin * Fasting BSG 76 mg/dL - will hold AM lantus and decrease basal starting tonight with scale * No change to Cf/CR 10/25 * Patient received total of 64 units of insulin yesterday of which 30 units were basal * Fasting BSG within range 105 mg/dL - no change * Continue same CF/CR for now 10/23 * Otto received a total of 50 units of SQ insulin yesterday (20 units basal + 30 units bolus). * Fasting BSG = 174 mg/dL today. Oral intake improved. Will resume BID dosing of Lantus. * HD catheter placed on 10/21. Patient had 4 hour HD session that day. 10/21: * BSGs [phone]/dL the last 24h. Received 40units of basal and 27 units of bolus insulin yesterday. * NPO this AM for HD cath placement and remains NPO this afternoon. AM Lantus held by nursing this morning given fasting BSG in 90s and prolonged NPO status. * Resume Lantus 20 units tonight and then reassess basal in AM. No change to Novolog. 10/20: * Patient received 64 units of insulin yesterday, 40 of which were basal. BSGs have been well controlled over the past 24 hours: [phone] mg/dL * Fasting BSG remains adequate at 115 mg/dL. * Patient is ordered and tolerating a diet. * Plan to transition to HD tomorrow from PD. 10/18 * Patient has received 25 units BID per scale x last 3 days- fasting within range, will schedule * BSGs slightly lower than goal with lunch/dinner yesterday but not hypog lycemic. Patient has refused with insulin with dinner leading to high HS blood sugar. Will loosen carb ratio slightly to try and maintain BSG 110-140 mg/dL 10/14 * NPO for OR this AM * Fasting BSG elevated this AM. Increased lantus sliding scale. * Tightened CF and CR 2nd elevated post-prandial glucose. 10/13 * Diet resumed this AM after ANI * Fasting BSG elevated. Will increase Lantus * One post-prandial BSG elevated yesterday after tightening Novolog parameters. Will not make further adjustments for now, but may consider tightening Novolog parameters if post-prandial BSG's remain elevated. PLAN FOR INPATIENT GLYCEMIC CONTROL: * Hold outpatient oral diabetes medications * Basal insulin * Lantus 18 units SQ HS * Bolus insulin * NovoLog per scale ACHS or Q6hrs while NPO * Goal Range: Low 110 mg/dL - High 140 mg/dL * Correction Factor: 30 mg/dL/unit * Nutritional / Prandial insulin per carb ratio of 1 unit per 6 grams CHO consumed
--- NOTE | 2024-10-31 16:33 | Hospitalist Progress Note ---
Date of Service October 31, 2024 Assessment & Plan (1) Sepsis: (2) Diabetes mellitus: (3) Diabetic peripheral neuropathy associated with type 2 diabetes mellitus: (4) Peripheral vascular disease: (5) ESRD on peritoneal dialysis: (6) HTN (hypertension): (7) S/P cardiac pacemaker procedure: (8) History of diabetic ulcer of foot: Plan Patient is a 64 yr male with PMHx of end-stage renal disease on peritoneal dialysis, DM type II, CAD, HTN history of complete heart block, s/p pacemaker insertion, aortic valve, bicuspid, history of PE, peripheral vascular disease, s/p left great toe amputation,chronic left 2nd and 3rd toe wound, left well- healed heel ulcer, dry gangrene of right hand, who presents to the hospital with approximately 24 hours of increased confusion, lethargy, fever, chills/rigors 2/2 sepsis. Severe Sepsis, resolved MSSA bacteremia Left 2nd/3rd Digit Foot Osteomyelitis s/p amputation Right 4th/5th Digit Osteomyelitis s/p amputation -Foot MRI: OM of left 2nd and 3rd toes. -MRI L spine (done for concerns of reported back pain): no concerns for OM. -Admitting (10/10) Bl Cx: 4 out of 4 bottles growing MSSA -Repeat Bl cx 10/12: 1 of 4 bottle growing S. Aureus [Of note, pt underwent L toe amputation later morning of 10/12]. -Left foot operative Cx 10/12: MSSA, also growing Helococcus and Anaerococcus. -MRI Rt finger (4th and 5th) 10/13: osteomyelitis at the fourth and fifth distal phalanges. -Right ring finger operative Cx 10/14: staph and Enterobacter and cutibacterium growing, follow final results. Plan: -ID shaunna, recommends iv cefazolin daily. for 6 weeks from the date of last neg blood culture. ~Discussed with ID again 10/19 evening regarding additional growth in operative cultures, no new antibiotic coverage needed, continue with prior antibiotic plan. -Due to patient's increased need pt's states she won't be able to care at home ~Plan for peritoneal dialysis catheter removal and TDC placement prior to discharge Continue management as above per prior provider Needs follow-up with podiatry for suture removal Elevate left foot at rest and wear heel offloading boots at rest --Pathology: Marked acute osteomyelitis with superficial ulceration left second toe. Bone and soft tissue with mild reactive changes. Marked acute osteomyelitis with superficial ulceration left third toe. Unremarkable bone and soft tissue. Discussed with ID on 10/28/24: Agrees to continue 6-week course of IV cefazolin given valvular heart disease. Needs PICC line PICC line consent obtained on 10/29/2024 We will hold off on placing PICC line until placement arranged Follow-up repeat urine culture Suspected UTI Urine culture pending Afebrile Abnormal CT chest Enlarging inflammatory nodules --CT Chest:Slightly worsened centrilobular interstitial infiltrates in the left upper lobe and bilateral lower lobes. This could be due to an atypical inflammatory process such as JEM infection. Interval increase in size and number of small pulmonary nodules. These may be inflammatory but are in determinate in nature. A follow-up chest CT is recommended in 6 months. Emphysema. Mild right hilar adenopathy, nonspecific in nature. Splenomegaly --Needs follow-up with pulmonology with repeat CT in 3-6 months as outpatient Hyponatremia Last sodium level 129 Continue fluid restriction Monitor sodium levels Appreciate nephrology input Back Pain Vitamin D deficiency -likely 2/2 deconditioning. vitamin D level low -increased vit D3 to 125 mcg daily -OOB few times a day and PT daily as able Appreciate pain management input Needs repeat vitamin D levels as outpatient Lumbar x-ray showed multilevel degenerative disc disease Continue pain control as needed Elevated high sensitive troponin Likely demand ischemia in setting of sepsis -Echocardiogram obtained; reviewed ESRD on dialysis Patient nephrology input Continue dialysis per nephrology DM II -SSI HTN -c/w home atenolol, torsemide and amlodipine. Monitor blood pressure Peripheral Vascular disease Multiple amputation history -vascular surgery consult, appreciate recs Hx CVA - left posterior frontal infarction in the MCA distribution in 2008, manifested by inability to spell a common word as well as a right centrum semiovale and right occipital lobe CVA 04/2014, manifested by left arm weakness that lasted several days before resolving. 04/2014 Carotid duplex showed < 50% carotid stenosis bilaterally (report scanned in [facility]). -06/2023 carotid duplex demonstrates less than 50% carotid stenosis b/l ICAs. --Continue aspirin, Plavix, statin Hx PE in 2010, treated with Coumadin for ~3 months. -No longer on anticoagulation Blurry Vision --MRI Brain: Progressive white matter disease likely on a small vessel ischemic basis. Multiple old cerebellar lacunar infarcts, old left thalamic lacunar infarct and old left frontal infarct. No acute infarcts identified. Progressive atrophy. Mild ventricular dilatation likely secondary to volume loss. -noted post operatively -no vision deficits -CT imaging with substantial vascular disease but no clear new infarct or hemorrhage Resolved DVT Px: Heparin SQ Code Status Full Code Disposition Rehab when accepted Admission and Anticipated Discharge Date Admission Date: October 10, 2024 Subjective Patient is seen and examined at bedside Was having hemodialysis during my encounter this morning Discussed with nephrology today Patient denies any chest pain, dyspnea Waiting for placement Review of Systems Review of Systems: All systems reviewed & are unremarkable except as noted in Subjective Physical Exam Physical Exam: Physical Exam: Vitals signs as noted above General Appearance:Moderately built and nourished, no apparent distress Head: normocephalic, Atraumatic Eyes: normal inspection, EOMI Neck: supple, Trachea midline Respiratory/Chest: Normal breath sounds, CTA, No accessory muscle use Cardiovascular: S1, S2, No murmur Abdomen/GI:Soft, Non tender, Bowel sounds present Extremities/Musculoskeletal:normal inspection, S/P toe amputation Neurologic/Psych:AAOX3, grossly no focal neurological deficits Skin: normal color, warm Results & Data Results & Data Vital Signs (Past 12 Hours) Vital Signs Temp Pulse Pulse Resp BP BP BP 10/31/24 15:01 36.6 C 70 16 137/61 10/31/24 14:40 36.8 C 105/59 L 10/31/24 14:20 76 105/59 L 10/31/24 14:00 77 89/65 L 10/31/24 13:30 76 116/59 L 10/31/24 13:04 74 10/31/24 13:00 73 99/69 L 10/31/24 12:45 74 96/43 L 10/31/24 12:30 73 89/54 L 10/31/24 12:00 76 121/48 L 10/31/24 11:38 10/31/24 11:30 72 115/52 L 10/31/24 11:00 72 105/58 L 10/31/24 10:30 71 116/59 L 10/31/24 10:20 71 129/62 10/31/24 10:15 36.5 C 10/31/24 07:57 36.5 C 70 16 136/80 10/31/24 05:59 64 Pulse Ox O2 Del Method 10/31/24 15:01 97 Room Air 10/31/24 14:40 10/31/24 14:20 10/31/24 14:00 10/31/24 13:30 10/31/24 13:04 10/31/24 13:00 10/31/24 12:45 10/31/24 12:30 10/31/24 12:00 10/31/24 11:38 Room Air 10/31/24 11:30 10/31/24 11:00 10/31/24 10:30 10/31/24 10:20 10/31/24 10:15 10/31/24 07:57 97 Room Air 10/31/24 05:59 Laboratory Results BMP 10/31/24 07:23 Sodium 129 L Potassium 5.1 Chloride 93 L Carbon Dioxide 24 BUN 95 H Creatinine 7.58 H* Glucose 129 H Calcium 8.4 L (1) Sepsis Sepsis acute organ dysfunction status: with acute organ dysfunction Sepsis type: sepsis due to unspecified organism Severe sepsis acute organ dysfunction type: encephalopathy Severe sepsis shock status: without septic shock Qualified Code(s): A41.9 - Sepsis, unspecified organism; R65.20 - Severe sepsis without septic shock; G93.41 - Metabolic encephalopathy
[2024-10-31] MEDS: HEPARIN SOD (PORCINE) 1000 UNIT/ML IV SCH (18:05)
--- NOTE | 2024-11-01 10:24 | Nephrology Progress Note ---
Date of Service November 01, 2024 Assessment & Plan Admission and Anticipated Discharge Date Admission Date: October 10, 2024 Subjective Assessment & Plan (1) Sepsis: Plan: PD fluid negative for peritonitis. No need of IP abx . ID eval done. MSSA bacteremia on 10/12 admission. ANI--negative. getting Some Amputations. Blood C/s from 10/14 so far negative. 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 he has pus like urine today. Will get cultures and sensitivity as per ID patient must have daily iV abx so will need PICC line given VHD.. However as of now we have no resolution about Discharge. Once we know the discharge date can proceed with PICC line or Midline ( preferably) (2) End stage renal disease on dialysis: Plan: patient does not have much residual renal function left as he makes only about 500ml of urine per day, has made as much as 1.2L on one day at least this admission Previously was on hemodialysis the PD and has now changed back to HD for foreseeable future not only for rehab but b/c of care-partner fatigue/health issues Will take 3 kilo off tomorrow. hgb is low and will give 10K procrit. ESRD secondary to diabetes hypertension and chronic diffuse vascular disease. fluid status acceptable PD cath removed and CVC placed on October 21. On MWF schedule currently. Subjective Seen for ESRD. No SOB. still waiting for rehab placement. CVC fine. No issues with dialysis yesterday. Review of Systems Review of Systems: All other systems were reviewed and negative except as noted in HPI Physical Exam Physical Exam: General exam: Appears comfortable, no acute distress HEENT: Pupils are equal and reactive to light Neck: No JVD, neck is supple trachea is midline Respiratory system: Clear breath sounds bilaterally. Gastrointestinal: Abdomen is soft, non distended, non tender, bowel sounds are present CVS: Regular rate and rhythm. No murmurs, rubs or gallops Musculoskeletal: No joint or muscle tenderness Extremities: Non tender, no edema, peripheral pulses are present Neuro: Oriented, no tremors, no focal neurological deficits Skin: No rashes Results & Data Vital Signs (Past 12 Hours) Vital Signs Temp Pulse Pulse Resp BP Pulse Ox O2 Del Method 11/01/24 07:26 36.4 C L 71 18 125/75 99 Room Air 11/01/24 05:42 68 11/01/24 02:29 36.6 C 78 18 116/71 96 Room Air 10/31/24 22:25 36.7 C 80 16 135/84 97 Room Air
[2024-11-01 13:35] LABS: Appearance Urine Cloudy (Clear); Glucose Urine UA Negative (Negative)
[2024-11-01 13:43] LABS: Epithelial Cell Urine 0-2 /hpf (0-2)
--- NOTE | 2024-11-01 15:17 | Hospitalist Progress Note ---
Date of Service November 01, 2024 Assessment & Plan (1) Sepsis: (2) Diabetes mellitus: (3) Diabetic peripheral neuropathy associated with type 2 diabetes mellitus: (4) Peripheral vascular disease: (5) ESRD on peritoneal dialysis: (6) HTN (hypertension): (7) S/P cardiac pacemaker procedure: (8) History of diabetic ulcer of foot: Plan Patient is a 64 yr male with PMHx of end-stage renal disease on peritoneal dialysis, DM type II, CAD, HTN history of complete heart block, s/p pacemaker insertion, aortic valve, bicuspid, history of PE, peripheral vascular disease, s/p left great toe amputation,chronic left 2nd and 3rd toe wound, left well- healed heel ulcer, dry gangrene of right hand, who presents to the hospital with approximately 24 hours of increased confusion, lethargy, fever, chills/rigors 2/2 sepsis. Severe Sepsis, resolved MSSA bacteremia Left 2nd/3rd Digit Foot Osteomyelitis s/p amputation Right 4th/5th Digit Osteomyelitis s/p amputation -Foot MRI: OM of left 2nd and 3rd toes. -MRI L spine (done for concerns of reported back pain): no concerns for OM. -Admitting (10/10) Bl Cx: 4 out of 4 bottles growing MSSA -Repeat Bl cx 10/12: 1 of 4 bottle growing S. Aureus [Of note, pt underwent L toe amputation later morning of 10/12]. -Left foot operative Cx 10/12: MSSA, also growing Helococcus and Anaerococcus. -MRI Rt finger (4th and 5th) 10/13: osteomyelitis at the fourth and fifth distal phalanges. -Right ring finger operative Cx 10/14: staph and Enterobacter and cutibacterium growing, follow final results. Plan: -ID shaunna, recommends iv cefazolin daily. for 6 weeks from the date of last neg blood culture. ~Discussed with ID again 10/19 evening regarding additional growth in operative cultures, no new antibiotic coverage needed, continue with prior antibiotic plan. -Due to patient's increased need pt's states she won't be able to care at home ~Plan for peritoneal dialysis catheter removal and TDC placement prior to discharge Continue management as above per prior provider Needs follow-up with podiatry for suture removal Elevate left foot at rest and wear heel offloading boots at rest --Pathology: Marked acute osteomyelitis with superficial ulceration left second toe. Bone and soft tissue with mild reactive changes. Marked acute osteomyelitis with superficial ulceration left third toe. Unremarkable bone and soft tissue. Discussed with ID on 10/28/24: Agrees to continue 6-week course of IV cefazolin given valvular heart disease. Needs PICC line PICC line consent obtained on 10/29/2024 We will hold off on placing PICC line until placement arranged Continue current management Suspected UTI Urine culture not contributory Repeat culture pending Hide multiple BMs today (denies diarrhea) Will check stool studies if develops diarrhea Will broaden antibiotics if needed Abnormal CT chest Enlarging inflammatory nodules --CT Chest:Slightly worsened centrilobular interstitial infiltrates in the left upper lobe and bilateral lower lobes. This could be due to an atypical inf lammatory process such as JEM infection. Interval increase in size and number of small pulmonary nodules. These may be inflammatory but are indeterminate in nature. A follow-up chest CT is recommended in 6 months. Emphysema. Mild right hilar adenopathy, nonspecific in nature. Splenomegaly --Needs follow-up with pulmonology with repeat CT in 3-6 months as outpatient Hyponatremia Last sodium level 129 Continue fluid restriction Monitor sodium levels Appreciate nephrology input Back Pain Vitamin D deficiency -likely 2/2 deconditioning. vitamin D level low -increased vit D3 to 125 mcg daily -OOB few times a day and PT daily as able Appreciate pain management input Needs repeat vitamin D levels as outpatient Lumbar x-ray showed multilevel degenerative disc disease Continue pain control as needed Elevated high sensitive troponin Likely demand ischemia in setting of sepsis -Echocardiogram obtained; reviewed ESRD on dialysis Patient nephrology input Continue dialysis per nephrology DM II -SSI HTN -c/w home atenolol, torsemide and amlodipine. Monitor blood pressure Peripheral Vascular disease Multiple amputation history -vascular surgery consult, appreciate recs Hx CVA - left posterior frontal infarction in the MCA distribution in 2008, manifested by inability to spell a common word as well as a right centrum semiovale and right occipital lobe CVA 04/2014, manifested by left arm weakness that lasted several days before resolving. 04/2014 Carotid duplex showed < 50% carotid stenosis bilaterally (report scanned in [facility]). -06/2023 carotid duplex demonstrates less than 50% carotid stenosis b/l ICAs. --Continue aspirin, Plavix, statin Hx PE in 2010, treated with Coumadin for ~3 months. -No longer on anticoagulation Blurry Vision --MRI Brain: Progressive white matter disease likely on a small vessel ischemic basis. Multiple old cerebellar lacunar infarcts, old left thalamic lacunar infarct and old left frontal infarct. No acute infarcts identified. Progressive atrophy. Mild ventricular dilatation likely secondary to volume loss. -noted post operatively -no vision deficits -CT imaging with substantial vascular disease but no clear new infarct or hemorrhage Resolved DVT Px: Heparin SQ Code Status Full Code Disposition Rehab when accepted Admission and Anticipated Discharge Date Admission Date: October 10, 2024 Subjective Patient is seen and examined at bedside States having multiple bowel movements today but denies diarrhea Patient's family at bedside Patient denies any chest pain, dyspnea, abdominal pain, nausea, vomiting Waiting for placement Review of Systems Review of Systems: All systems reviewed & are unremarkable except as noted in Subjective Physical Exam Physical Exam: Physical Exam: Vitals signs as noted above General Appearance:Moderately built and nourished, no apparent distress Head: normocephalic, Atraumatic Eyes: normal inspection, EOMI Neck: supple, Trachea midline Respiratory/Chest: Normal breath sounds, CTA, No accessory muscle use Cardiovascular: S1, S2, No murmur Abdomen/GI:Soft, Non tender, Bowel sounds present Extremities/Musculoskeletal:normal inspection, S/P toe amputation Neurologic/Psych:AAOX3, grossly no focal neurological deficits Skin: normal color, warm Results & Data Results & Data Vital Signs (Past 12 Hours) Vital Signs Temp Pulse Pulse Resp BP BP Pulse Ox 11/01/24 13:34 70 11/01/24 11:00 38.4 C H 71 18 122/71 96 11/01/24 07:26 36.4 C L 71 18 125/75 99 11/01/24 05:42 68 O2 Del Method 11/01/24 13:34 11/01/24 11:00 Room Air 11/01/24 07:26 Room Air 11/01/24 05:42 Laboratory Results Urine 11/01/24 Range/Units Unknown Urine Color Yellow Urine Appearance Cloudy A (Clear) Urine pH 6.0 (4.5-7.5) Ur Specific [place] 1.020 (1.000-1.030) Urine Protein 3+ H (Negative) Urine Glucose (UA) Negative (Negative) (1) Sepsis Sepsis acute organ dysfunction status: with acute organ dysfunction Sepsis type: sepsis due to unspecified organism Severe sepsis acute organ dysfunction type: encephalopathy Severe sepsis shock status: without septic shock Qualified Code(s): A41.9 - Sepsis, unspecified organism; R65.20 - Severe sepsis without septic shock; G93.41 - Metabolic encephalopathy
[2024-11-01] MEDS: ADVANCED PROBIOTIC 625 MG CAPSULE PO SCH (15:41)
--- NOTE | 2024-11-01 21:52 | Podiatry Progress Note ---
Date of Service November 01, 2024 Assessment & Plan (1) 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: (2) Chronic osteomyelitis: (3) Sepsis: (4) Peripheral vascular disease: Plan Patient was examined and evaluated. - Foot cleaned with skin prep, sutures removed. Redressed with large Optifoam border gauze. - Advised to elevate left foot at rest and to wear heel offloading (waffle) boots at rest. Patient has heel boots in the room, but not wearing them - Agree with plan for longer term IV abx based on multiple comorbid infections, though foot OM should be definitively excised. - Will continue to follow sporadically. Remains ok to d/c from foot and ankle perspective when stable per medicine. Admission and Anticipated Discharge Date Admission Date: October 10, 2024 Subjective Patient seen at bedside at lunchtime. No new concerns. Tolerating left digital amputations well. Sitting up for lunch. Good appetite. Review of Systems Constitutional: + fatigue and + weakness; no fever, no c hills and no sweats Eyes: no problem reported Ear, Nose, Mouth, Throat: no problem reported Respiratory: no problem reported Cardiovascular: + edema; no problem reported Gastrointestinal: no nausea, no vomiting and no problem reported Musculoskeletal: + muscle weakness; no problem reported Integumentary: no skin ulcer, no wounds and no erythema Neurologic: + loss of sensation, + numbness and + pa resthesia Psychiatric: no confusion Physical Exam Physical Exam: Lower extremity focused exam: DP/PT pulses nonpalpable. CFT brisk to the digits. Advanced trophic changes noted to b/l lower extremity. Sutures intact to left foot surgical site. No worsening evidence of necrosis or infection. Sutures removed without early dehiscence noted. Surgical site well healed with some scabbing intact.No active bleeding. No significant drainage. Constitutional: WD/WN, vitals as above + ill appearing, + morbidly obese and + obese; no acute distress Eyes: PERRL, conjunctivae normal, anicteric sclerae ENMT: external ear and nose normal, oropharynx normal Mouth: + poor dentition Neck: trachea midline, no thyromegaly normal visual inspection Respiratory: normal respiratory effort; no respiratory distress Cardiovascular: Rate/Rhythm: regular rate and regular rhythm Vessels: + posterior tibial pulses abnormal and + dorsalis pedis pulses abnormal Chest (Breasts): Chest: normal inspection of chest Gastrointestinal (Abdomen): Inspection/Auscultation: abdomen normal to inspection Percussion/Palpation: + abdomen tender and abdomen soft Musculoskeletal: no cyanosis or clubbing, extremities motor strength 5/5 Head/Neck/Chest: normocephalic and head atraumatic Extremities: extremities normal to inspection Skin: + ulcer, + wound, + erythema and + nails dystrophic Neurologic: moves all extremities, awake and + confused; + abnormal sensation to monofilament and no focal motor deficits Psychiatric: A+Ox3, euthymic affect Results & Data Results & Data Vital Signs (Past 12 Hours) Vital Signs Temp Pulse Pulse Resp BP BP Pulse Ox 11/01/24 19:30 36.8 C 66 18 126/81 98 11/01/24 15:32 36.4 C L 67 18 123/71 98 11/01/24 13:34 70 11/01/24 11:00 38.4 C H 71 18 122/71 96 O2 Del Method 11/01/24 19:30 Room Air 11/01/24 15:32 Room Air 11/01/24 13:34 11/01/24 11:00 Room Air (1) 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 Diabetic foot ulcer location: toe Diabetes mellitus type: type 2 Laterality: left Qualified Code(s): E11.621 - Type 2 diabetes mellitus with foot ulcer; L97.524 - Non-pressure chronic ulcer of other part of left foot with necrosis of bone (3) Sepsis Sepsis acute organ dysfunction status: with acute organ dysfunction Sepsis type: sepsis due to unspecified organism Severe sepsis acute organ dysfunction type: encephalopathy Severe sepsis shock status: without septic shock Qualified Code(s): A41.9 - Sepsis, unspecified organism; R65.20 - Severe sepsis without septic shock; G93.41 - Metabolic encephalopathy
[2024-11-02] MEDS ORDERED: SODIUM CHLORIDE 0.9% 1,000 ML IV PRN (07:00)
--- NOTE | 2024-11-02 08:28 | Hospitalist Progress Note ---
Date of Service November 02, 2024 Assessment & Plan (1) Sepsis: (2) Diabetes mellitus: (3) Diabetic peripheral neuropathy associated with type 2 diabetes mellitus: (4) Peripheral vascular disease: (5) ESRD on peritoneal dialysis: (6) HTN (hypertension): (7) S/P cardiac pacemaker procedure: (8) History of diabetic ulcer of foot: Plan Per previous provider w/ addendum: Patient is a 64 yr male with end-stage renal disease on peritoneal dialysis, DM type II, CAD, HTN history of complete heart block, s/p pacemaker insertion, aortic valve, bicuspid, history of PE, peripheral vascular disease, s/p left great toe amputation,chronic left 2nd and 3rd toe wound, left well-healed heel ulcer, dry gangrene of right hand, who presents to the hospital with approximately 24 hours of increased confusion, lethargy, fever, chills/rigors 2/2 sepsis. Severe Sepsis, resolved MSSA bacteremia Left 2nd/3rd Digit Foot Osteomyelitis s/p amputation Right 4th/5th Digit Osteomyelitis s/p amputation -Foot MRI: OM of left 2nd and 3rd toes. -MRI L spine (done for concerns of reported back pain): no concerns for OM. -Admitting (10/10) Bl Cx: 4 out of 4 bottles growing MSSA -Repeat Bl cx 10/12: 1 of 4 bottle growing S. Aureus [Of note, pt underwent L toe amputation later morning of 10/12]. -Left foot operative Cx 10/12: MSSA, also growing Helococcus and Anaerococcus. -MRI Rt finger (4th and 5th) 10/13: osteomyelitis at the fourth and fifth distal phalanges. -Right ring finger operative Cx 10/14: staph and Enterobacter and cutibacterium growing, follow final results. Plan: -ID shaunna, recommends iv cefazolin daily. for 6 weeks from the date of last neg blood culture. ~Discussed with ID again 10/19 evening regarding additional growth in operative cultures, no new antibiotic coverage needed, continue with prior antibiotic plan. -Due to patient's increased need pt's states she won't be able to care at home ~Plan for peritoneal dialysis catheter removal and TDC placement prior to discharge Continue management as above per prior provider Needs follow-up with podiatry for suture removal Elevate left foot at rest and wear heel offloading boots at rest --Pathology: Marked acute osteomyelitis with superficial ulceration left second toe. Bone and soft tissue with mild reactive changes. Marked acute osteomyelitis with superficial ulceration left third toe. Unremarkable bone and soft tissue. Discussed with ID on 10/28/24: Agrees to continue 6-week course of IV cefazolin given valvular heart disease. Needs PICC line PICC line consent obtained on 10/29/2024 We will hold off on placing PICC line until placement arranged Continue current management Suspected UTI Urine culture not contributory Repeat culture pending Had multiple BMs yesterday (denies diarrhea) Probiotics were started check stool studies if develops diarrhea Will broaden antibiotics if needed Abnormal CT chest Enlarging inflammatory nodules --CT Chest:Slightly worsened centrilobular interstitial infiltrates in the left upper lobe and bilateral lower lobes. This could be due to an atypical inflammatory process such as JEM infection. Interval increase in size and number of small pulmonary nodules. These may be inflammatory but are indeterminate in nature. A follow-up chest CT is recommended in 6 months. Emphysema. Mild right hilar adenopathy, nonspecific in nature. Splenomegaly --Needs follow-up with pulmonology with repeat CT in 3-6 months as outpatient Hyponatremia Last sodium level 129 Continue fluid restriction Monitor sodium levels Appreciate nephrology input Back Pain Vitamin D deficiency -likely 2/2 deconditioning. vitamin D level low -increased vit D3 to 125 mcg daily -OOB few times a day and PT daily as able Appreciate pain management input Needs repeat vitamin D levels as outpatient Lumbar x-ray showed multilevel degenerative disc disease, previously also had L- spine MRI, as above Continue pain control as needed Elevated high sensitive troponin Likely demand ischemia in setting of sepsis -Echocardiogram obtained; reviewed ESRD on dialysis Patient nephrology input Continue dialysis per nephrology DM II -SSI HTN -c/w home atenolol, torsemide and amlodipine. Monitor blood pressure Peripheral Vascular disease Multiple amputation history -vascular surgery consult, appreciate recs Hx CVA - left posterior frontal infarction in the MCA distribution in 2008, manifested by inability to spell a common word as well as a right centrum semiovale and right occipital lobe CVA 04/2014, manifested by left arm weakness that lasted several days before resolving. 04/2014 Carotid duplex showed < 50% carotid stenosis bilaterally (report scanned in [facility]). -06/2023 carotid duplex demonstrates less than 50% carotid stenosis b/l ICAs. --Continue aspirin, Plavix, statin Hx PE in 2010, treated with Coumadin for ~3 months. -No longer on anticoagulation Blurry Vision --MRI Brain: Progressive white matter disease likely on a small vessel ischemic basis. Multiple old cerebellar lacunar infarcts, old left thalamic lacunar infarct and old left frontal infarct. No acute infarcts identified. Progressive atrophy. Mild ventricular dilatation likely secondary to volume loss. -noted post operatively -no vision deficits -CT imaging with substantial vascular disease but no clear new infarct or hemorrhage Resolved DVT Px: Heparin SQ Code Status Full Code Disposition Rehab when accepted Admission and Anticipated Discharge Date Admission Date: October 10, 2024 Subjective Pt seen in follow up Pt seen while on HD Patient denies any chest pain, dyspnea, abdominal pain, nausea, vomiting Waiting for placement Review of Systems Review of Systems: All systems reviewed & are unremarkable except as noted in Subjective Physical Exam Physical Exam: General Appearance:Moderately built and nourished, no apparent distress Head: normocephalic, Atraumatic Eyes: normal inspection, EOMI Neck: supple Respiratory/Chest: Normal breath sounds, CTA, No accessory muscle use Cardiovascular: S1, S2, No murmur Abdomen/GI:Soft, Non tender, Bowel sounds present Extremities/Musculoskeletal: S/P toes amputation , tips of R hand 4th, 5th fingers amputation Neurologic/Psych: awake, alert, answers appropriately, speech fluent, no facial asymmetry, moves extremities Skin: normal color, warm Results & Data Results & Data Vital Signs (Past 12 Hours) Vital Signs Temp Pulse Pulse Resp BP Pulse Ox O2 Del Method 11/02/24 07:52 65 18 115/52 L 96 Room Air 11/02/24 07:47 36.6 C 104 H 18 92/50 L 91 Room Air 11/02/24 07:21 65 11/02/24 04:00 36.6 C 68 18 123/67 94 Room Air 11/01/24 23:17 36.6 C 70 18 119/75 94 Room Air 11/01/24 22:20 Room Air 11/01/24 22:16 67 Laboratory Results 11/02/24 11/01/24 11/01/24 Range/Units 08:06 Unknown 20:01 POC Glucose 97 131 H (70-99) mg/dl Urine Color Yellow Urine Appearance Cloudy A (Clear) Urine pH 6.0 (4.5-7.5) Ur Specific Yoder 1.020 (1.000-1.030) Urine Protein 3+ H (Negative) Urine Glucose (UA) Negative (Negative) Urine Ketones Trace H (Negative) Urine Blood 3+ H (Negative) Urine Nitrite Negative (Negative) Urine Bilirubin Negative (Negative) Urine Urobilinogen Negative (Negative) Ur Leukocyte Esterase 3+ H (Negative) Urine RBC 6-10 H (0-2) /hpf Urine WBC >50 H (0-5) /hpf Ur Epithelial Cells 0-2 (0-2) /hpf Urine Bacteria 2+ H (None Seen) Urine Comment 11/01/24 11/01/24 Range/Units 16:56 11:55 POC Glucose 133 H 266 H (70-99) mg/dl Urine Color Urine Appearance (Clear) Urine pH (4.5-7.5) Ur Specific Yoder (1.000-1.030) Urine Protein (Negative) Urine Glucose (UA) (Negative) Urine Ketones (Negative) Urine Blood (Negative) Urine Nitrite (Negative) Urine Bilirubin (Negative) Urine Urobilinogen (Negative) Ur Leukocyte Esterase (Negative) Urine RBC (0-2) /hpf Urine WBC (0-5) /hpf Ur Epithelial Cells (0-2) /hpf Urine Bacteria (None Seen) Urine Comment Medications Administered Current Inpatient Medications Acetaminophen (Acetaminophen 325 Mg Tab) 650 mg PO Q4H PRN PRN Reason: Moderate Pain (Scale 4, 5, 6) Stop: 11/09/24 15:30 Last Admin: 11/01/24 21:26 Dose: 650 mg Amlodipine Besylate (Amlodipine Besylate 5 Mg Tab) [facility] [place] [place] Stop: 11/12/24 08:59 Last Admin: 11/02/24 08:09 Dose: Not Given Aspirin (Aspirin 81 Mg Ectab) 81 mg PO DAILY [facility] Stop: 11/14/24 08:59 Last Admin: 11/02/24 08:06 Dose: 81 mg Atenolol (Atenolol 50 Mg Tablet) 50 mg PO QAM [facility] Stop: 11/11/24 13:59 Last Admin: 11/02/24 08:07 Dose: 50 mg Atorvastatin Calcium (Atorvastatin 40 Mg Tab) 80 mg PO QPM [facility] Stop: 11/09/24 20:59 Last Admin: 11/01/24 21:13 Dose: 80 mg Clopidogrel Bisulfate (Clopidogrel Bisulfate 75 Mg Tab) 75 mg PO HS [facility] Stop: 11/09/24 20:59 Last Admin: 11/01/24 21:13 Dose: 75 mg Dextrose (Dextrose 50% 50 Ml Syringe) 25 - 50 ml IV UD PRN; Protocol PRN Reason: Hypoglycemia Protocol Stop: 11/09/24 15:30 Diclofenac Sodium (Diclofenac Sod 1% Gel 100 Gm Tube) 4 gm EXT Q6H ESTHER; Protocol Stop: 11/13/24 10:29 Last Admin: 11/02/24 04:56 Dose: Not Given Docusate Sodium (Docusate Sodium 100 Mg Cap) 100 mg PO BID [facility] Stop: 11/11/24 20:59 Last Admin: 11/02/24 08:11 Dose: 100 mg Gabapentin (Gabapentin 600 Mg Tab) 600 mg PO TID [facility] Stop: 11/09/24 15:30 Last Admin: 11/02/24 08:07 Dose: 600 mg Glucagon (Glucagon For Inj 1 Mg Vial) 1 mg SQ UD PRN; Protocol PRN Reason: Hypoglycemia Protocol Stop: 11/09/24 15:30 Glucose (Glucose 40% Gel 15 Gm Tube) 15 - 30 gm PO UD PRN; Protocol PRN Reason: Hypoglycemia Protocol Stop: 11/09/24 15:30 Glucose (Glucose 10 Tab/Tube) 4 - 8 tab PO UD PRN; Protocol PRN Reason: Hypoglycemia Protocol Stop: 11/09/24 15:30 Heparin Sodium (Porcine) (Heparin Sod 5,000 Unit/0.5 Ml Vial) 5,000 units SQ Q8 ESTHER Stop: 11/10/24 13:59 Last Admin: 11/02/24 06:13 Dose: 5,000 units Heparin Sodium (Porcine) (Heparin Sod (Porcine) 1000 Unit/Ml) 500 units IV Q1H [facility] Stop: 11/02/24 09:01 Cefazolin Sodium (Ancef 1000mg) 1,000 mg in 7.5 mls @ 2.5 mls/min IV Q24H ESTHER Stop: 11/22/24 15:59 Last Admin: 11/01/24 15:41 Dose: 2.5 mls/min Sodium Chloride (Nss) 1,000 mls @ 0 mls/hr IV .Q0M PRN PRN Reason: For Hemodialysis Use ONLY Stop: 11/02/24 12:59 Insulin Aspart (Insulin Aspart Per Unit Charge) 0 units SC ACHS [facility] Stop: 11/13/24 05:59 Last Admin: 11/01/24 21:14 Dose: Not Given Insulin Glargine (Lantus Per Unit Charge) 18 units SC HS [facility] Stop: 11/29/24 20:59 Last Admin: 11/01/24 21:14 Dose: 18 units Lactobacillus Acidophilus (Advanced Probiotic 625 Mg Capsule) 1,250 mg PO DAILY [facility] Stop: 12/01/24 15:29 Last Admin: 11/02/24 08:06 Dose: 1,250 mg Lidocaine (Lidocaine 5% 1 Patch) 1 patch TD QAM [facility] Stop: 11/18/24 13:44 Last Admin: 11/02/24 08:11 Dose: Not Given Mineral Oil (Mineral Oil Enema 133 Ml Btl) 133 ml CA DAILY PRN PRN Reason: Constipation Stop: 11/16/24 13:42 Miscellaneous (Carbohydrates For Hypoglycemia ) 15 - 30 gm PO UD PRN PRN Reason: Hypoglycemia Protocol Stop: 11/09/24 15:30 Miscellaneous (Remove Lidoderm Patch) 1 each N/A DAILY@2100 [facility] Stop: 11/18/24 20:59 Last Admin: 11/01/24 21:31 Dose: Not Given Miscellaneous Information (Pharmacy Glycemic Mgmt Consult) 1 each N/A UD PRN; Protocol PRN Reason: Consult Stop: 11/09/24 11:44 Mupirocin (Mupirocin 2% Oint 22 Gm Tube) 1 appln EXT DAILY [facility] Stop: 11/30/24 08:59 Last Admin: 11/02/24 08:08 Dose: 1 appln Ondansetron HCl (Ondansetron Inj 2 Mg/Ml 2 Ml Vial) 4 mg IV Q4H PRN PRN Reason: Nausea And Vomiting Stop: 11/09/24 15:30 Last Admin: 10/16/24 12:21 Dose: 4 mg Oxycodone HCl (Oxycodone Hcl Ir 5 Mg Tab (Immediate Release)) 5 mg PO Q8H PRN PRN Reason: Pain Stop: 11/10/24 17:29 Last Admin: 11/01/24 02:55 Dose: 5 mg Polyethylene Glycol (Polyethylene (Miralax) 17 Gm Pack) 17 gm PO DAILY PRN PRN Reason: Constipation Stop: 11/16/24 13:44 Sennosides (Senna 8.6 Mg Tab) 8.6 mg PO QAM [facility] Stop: 11/18/24 13:44 Last Admin: 11/01/24 08:20 Dose: Not Given Torsemide (Torsemide 100 Mg Tab) 100 mg PO DAILY [facility] Stop: 11/12/24 08:59 Last Admin: 11/02/24 08:07 Dose: 100 mg Vitamin D (Cholecalciferol 125 Mcg (5,000 Units) Tab) 125 mcg PO QAM [facility] Stop: 11/14/24 13:59 Last Admin: 11/02/24 08:07 Dose: 125 mcg (1) Sepsis Sepsis acute organ dysfunction status: with acute organ dysfunction Sepsis type: sepsis due to unspecified organism Severe sepsis acute organ dysfunction type: encephalopathy Severe sepsis shock status: without septic shock Qualified Code(s): A41.9 - Sepsis, unspecified organism; R65.20 - Severe sepsis without septic shock; G93.41 - Metabolic encephalopathy
[2024-11-02 09:11] LABS: Hematocrit (blood only) 31.9 % (42.0-52.0); Hemoglobin 10.0 g/dl (14.0-18.0); Mean Corpuscular Hemoglobin 30.2 pg (25.0-34.0); Mean Corpuscular Volume 96.4 fL (80.0-100.0); Platelet Count 234 K/uL (130-400); RDW Standard Deviation 54.6 fL (36.4-46.3); Red Blood Count 3.31 M/uL (4.70-6.10); White Blood Count 9.16 K/ul (4.8-10.8)
[2024-11-02 09:35] LABS: Anion Gap 10.0 (3-11); Blood Urea Nitrogen 75.0 mg/dl (6-23); Calcium 8.7 mg/dl (8.6-10.3); Carbon Dioxide 27.0 mmol/L (21-32); Chloride 93.0 mmol/L (98-107); Creatinine Clr Calc Pharmacy 14.0 ml/min; Glucose 95.0 mg/dl (70-99(Fasting)); Potassium 4.7 mmol/L (3.5-5.1); Sodium 130.0 mmol/L (136-145)
--- NOTE | 2024-11-02 11:08 | Dialysis Progress Note ---
Date of Service November 02, 2024 Assessment & Plan Admission and Anticipated Discharge Date Admission Date: October 10, 2024 Subjective Assessment & Plan (1) Sepsis: Plan: PD fluid negative for peritonitis. No need of IP abx . ID eval done. MSSA bacteremia on 10/12 admission. ANI--negative. getting Some Amputations. Blood C/s from 10/14 so far negative. 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 he has pus like urine today. Will get cultures and sensitivity as per ID patient must have daily iV abx so will need PICC line given VHD.. However as of now we have no resolution about Discharge. Once we know the discharge date can proceed with PICC line or Midline ( preferably) (2) End stage renal disease on dialysis: Plan: patient does not have much residual renal function left as he makes only about 500ml of urine per day, has made as much as 1.2L on one day at least this admission Previously was on hemodialysis the PD and has now changed back to HD for foreseeable future not only for rehab but b/c of care-partner fatigue/health issues Will take 3 kilo off hgb is low and will give 10K procrit. ESRD secondary to diabetes hypertension and chronic diffuse vascular disease. fluid status acceptable. Was very fluid overloaded on Admission though PD cath removed and CVC placed on October 21. On MWF schedule currently. Subjective Seen during dialysis. ESRD. No SOB. still waiting for rehab placement. CVC fine. No issues with dialysis so far. Review of Systems Review of Systems: All other systems were reviewed and negative except as noted in HPI Physical Exam Physical Exam: General exam: Appears comfortable, no acute distress HEENT: Pupils are equal and reactive to light Neck: No JVD, neck is supple trachea is midline Respiratory system: Clear breath sounds bilaterally. Gastrointestinal: Abdomen is soft, non distended, non tender, bowel sounds are present CVS: Regular rate and rhythm. No murmurs, rubs or gallops Musculoskeletal: No joint or muscle tenderness Extremities: Non tender, no edema, peripheral pulses are present Neuro: Oriented, no tremors, no focal neurological deficits Skin: No rashes Results & Data Vital Signs (Past 12 Hours) Vital Signs Temp Pulse Pulse Resp BP Pulse Ox O2 Del Method 11/02/24 07:52 65 18 115/52 L 96 Room Air 11/02/24 07:47 36.6 C 104 H 18 92/50 L 91 Room Air 11/02/24 07:21 65 11/02/24 04:00 36.6 C 68 18 123/67 94 Room Air 11/01/24 23:17 36.6 C 70 18 119/75 94 Room Air
[2024-11-02] MEDS: HEPARIN SOD (PORCINE) 1000 UNIT/ML IV SCH (11:36)
[2024-11-02] MEDS: HEPARIN SOD (PORCINE) 1000 UNIT/ML IV ONE (11:36)
[2024-11-02] MEDS: EPOETIN ALFA 10,000 UNITS/ML VIAL IV ONE (11:38)
--- NOTE | 2024-11-02 14:26 | Pharmacy Report ---
Pharmacy Glycemic Short Note 2 - Date of Service November 02, 2024 - Glycemic Short BSG Results (Last 24 hours): 11/01/24 11/01/24 11/02/24 16:56 20:01 08:06 Glucose POC Glucose 133 H 131 H 97 11/02/24 11/02/24 08:41 13:46 Glucose 95 POC Glucose 112 H OUTPATIENT ANTIDIABETIC REGIMEN: * NovoLog 5 units SQ QAM, 10 units @ noon, 10 units in afternoon, CF 20 >140mg/dL * Lantus 20 untis SQ BID * HbA1c is unreliable in ESRD patients d/t interactions between the A1c analyzing technique and high levels of urea in ESRD, reduced RBC life span, iron deficiency anemia, and EPO administration. HbA1c > 7.5% in ESRD patient may overestimate the extent of hyperglycemia in ESRD patients. ASSESSMENT: 11/02 * Otto received a total of 58 units of insulin yesterday (18 units were basal and 40 units were bolus). BSGs were [phone]/dL. * Fasting BSG was below goal this morning and reymundo to only 112mg/dL at lunch. Decreased HS Lantus by ~20% and loosened CR. * He did have HD today 10/31 * Otto received a total of 60 units of insulin yesterday (18 units were basal and 42 units were bolus). * Fasting BSG was 142mg/dL this morning. Patient is scheduled for HD today. Will continue Basal and bolus insulin regimens as ordered without change 10/28 * Patient received total of 51 units of insulin yesterday, of which 15 units were basal * Fasting BSG 148 mg/dL - continue with scale for basal at HS * HD again today, continue same CF/CR 10/26 * Patient received total of 59 units of insulin yesterday, of which 30 units were basal insulin * Fasting BSG 76 mg/dL - will hold AM lantus and decrease basal starting tonight with scale * No change to Cf/CR 10/25 * Patient received total of 64 units of insulin yesterday of which 30 units were basal * Fasting BSG within range 105 mg/dL - no change * Continue same CF/CR for now 10/23 * Otto received a total of 50 units of SQ insulin yesterday (20 units basal + 30 units bolus). * Fasting BSG = 174 mg/dL today. Oral intake improved. Will resume BID dosing of Lantus. * HD catheter placed on 10/21. Patient had 4 hour HD session that day. 10/21: * BSGs [phone]/dL the last 24h. Received 40units of basal and 27 units of bolus insulin yesterday. * NPO this AM for HD cath placement and remains NPO this afternoon. AM Lantus held by nursing this morning given fasting BSG in 90s and prolonged NPO status. * Resume Lantus 20 units tonight and then reassess basal in AM. No change to Novolog. 10/20: * Patient received 64 units of insulin yesterday, 40 of which were basal. BSGs have been well controlled over the past 24 hours: [phone] mg/dL * Fasting BSG remains adequate at 115 mg/dL. * Patient is ordered and tolerating a diet. * Plan to transition to HD tomorrow from PD. 10/18 * Patient has received 25 units BID per scale x last 3 days- fasting within range, will schedule * BSGs slightly lower than goal with lunch/dinner yesterday but not hypoglycemic. Patient has refused with insulin with dinner leading to high HS blood sugar. Will loosen carb ratio slightly to try and maintain BSG 110-140 mg/dL 10/14 * NPO for OR this AM * Fasting BSG elevated this AM. Increased lantus sliding scale. * Tightened CF and CR 2nd elevated post-prandial glucose. 10/13 * Diet resumed this AM after ANI * Fasting BSG elevated. Will increase Lantus * One post-prandial BSG elevated yesterday after tightening Novolog parameters. Will not make further adjustments for now, but may consider tightening Novolog parameters if post-prandial BSG's remain elevated. PLAN FOR INPATIENT GLYCEMIC CONTROL: * Hold outpatient diabetes medications * Basal insulin * Lantus 16 units SQ HS * Bolus insulin * NovoLog per scale ACHS or Q6hrs while NPO * Goal Range: Low 110 mg/dL - High 140 mg/dL * Correction Factor: 30 mg/dL/unit * Nutritional / Prandial insulin per carb ratio of 1 unit per 8 grams CHO consumed
[2024-11-02] MEDS: LANTUS PER UNIT CHARGE SC SCH (21:14)
--- NOTE | 2024-11-02 22:29 | Communication Note ---
Date of Service: November 02, 2024 Patient with red blister on his back with greenish drainage as per RN. No fever, no chills. AP Infected cutaneous blister Wound CS Doxycycline and Cefepime for now (Hold IV cefazolin for now for MSSA septicemia)
[2024-11-02] MEDS: CEFEPIME 1000MG 1,000 MG/10 ML SYR IV SCH (23:16)
[2024-11-02] MEDS: DOXYCYCLINE HYCLATE 100 MG in DEXTROSE 5% MINI-B 100 ML IV STA (23:16)
[2024-11-03 06:22] LABS: Hematocrit (blood only) 29.2 % (42.0-52.0); Hemoglobin 9.7 g/dl (14.0-18.0); Mean Corpuscular Hemoglobin 31.9 pg (25.0-34.0); Mean Corpuscular Volume 96.1 fL (80.0-100.0); Platelet Count 216 K/uL (130-400); RDW Standard Deviation 54.5 fL (36.4-46.3); Red Blood Count 3.04 M/uL (4.70-6.10); White Blood Count 9.37 K/ul (4.8-10.8)
[2024-11-03 06:57] LABS: Anion Gap 9.0 (3-11); Blood Urea Nitrogen 55.0 mg/dl (6-23); Calcium 8.5 mg/dl (8.6-10.3); Carbon Dioxide 29.0 mmol/L (21-32); Chloride 97.0 mmol/L (98-107); Creatinine Clr Calc Pharmacy 19.0 ml/min; Glucose 99.0 mg/dl (70-99(Fasting)); Magnesium 2.0 mg/dl (1.7-2.4); Potassium 4.1 mmol/L (3.5-5.1); Sodium 135.0 mmol/L (136-145)
--- NOTE | 2024-11-03 07:37 | Hospitalist Progress Note ---
Date of Service November 03, 2024 Assessment & Plan (1) Sepsis: (2) Diabetes mellitus: (3) Diabetic peripheral neuropathy associated with type 2 diabetes mellitus: (4) Peripheral vascular disease: (5) ESRD on peritoneal dialysis: (6) HTN (hypertension): (7) S/P cardiac pacemaker procedure: (8) History of diabetic ulcer of foot: Plan Per previous provider w/ addendum: Patient is a 64 yr male with end-stage renal disease on peritoneal dialysis, DM type II, CAD, HTN history of complete heart block, s/p pacemaker insertion, aortic valve, bicuspid, history of PE, peripheral vascular disease, s/p left great toe amputation,chronic left 2nd and 3rd toe wound, left well-healed heel ulcer, dry gangrene of right hand, who presents to the hospital with approximately 24 hours of increased confusion, lethargy, fever, chills/rigors 2/2 sepsis. Severe Sepsis, resolved MSSA bacteremia Left 2nd/3rd Digit Foot Osteomyelitis s/p amputation Right 4th/5th Digit Osteomyelitis s/p amputation -Foot MRI: OM of left 2nd and 3rd toes. -MRI L spine (done for concerns of reported back pain): no concerns for OM. -Admitting (10/10) Bl Cx: 4 out of 4 bottles growing MSSA -Repeat Bl cx 10/12: 1 of 4 bottle growing S. Aureus [Of note, pt underwent L toe amputation later morning of 10/12]. -Left foot operative Cx 10/12: MSSA, also growing Helococcus and Anaerococcus. -MRI Rt finger (4th and 5th) 10/13: osteomyelitis at the fourth and fifth distal phalanges. -Right ring finger operative Cx 10/14: staph and Enterobacter and cutibacterium growing, follow final results. Plan: -ID shaunna, recommends iv cefazolin daily. for 6 weeks from the date of last neg blood culture. ~Discussed with ID again 10/19 evening regarding additional growth in operative cultures, no new antibiotic coverage needed, continue with prior antibiotic plan. -Due to patient's increased need pt's states she won't be able to care at home ~Plan for peritoneal dialysis catheter removal and TDC placement prior to discharge Continue management as above per prior provider Needs follow-up with podiatry for suture removal Elevate left foot at rest and wear heel offloading boots at rest --Pathology: Marked acute osteomyelitis with superficial ulceration left second toe. Bone and soft tissue with mild reactive changes. Marked acute osteomyelitis with superficial ulceration left third toe. Unremarkable bone and soft tissue. Discussed with ID on 10/28/24: Agrees to continue 6-week course of IV cefazolin given valvular heart disease. Needs PICC line PICC line consent obtained on 10/29/2024 We will hold off on placing PICC line until placement arranged Continue current management Suspected UTI Urine culture inconclusive, even when repeated Repeat culture via cath Had multiple BMs reported several days ago (denies diarrhea) Probiotics were started check stool studies if develops diarrhea Will broaden antibiotics if needed Abnormal CT chest Enlarging inflammatory nodules --CT Chest:Slightly worsened centrilobular interstitial infiltrates in the left upper lobe and bilateral lower lobes. This could be due to an atypical inflammatory process such as JEM infection. Interval increase in size and number of small pulmonary nodules. These may be inflammatory but are indeterminate in nature. A follow-up chest CT is recommended in 6 months. Emphysema. Mild right hilar adenopathy, nonspecific in nature. Splenomegaly --Needs follow-up with pulmonology with repeat CT in 3-6 months as outpatient Hyponatremia Last sodium level 129 Continue fluid restriction Monitor sodium levels Appreciate nephrology input Back Pain Vitamin D deficiency -likely 2/2 deconditioning. vitamin D level low -increased vit D3 to 125 mcg daily -OOB few times a day and PT daily as able Appreciate pain management input Needs repeat vitamin D levels as outpatient Lumbar x-ray showed multilevel degenerative disc disease, previously also had L- spine MRI, as above Continue pain control as needed Elevated high sensitive troponin Likely demand ischemia in setting of sepsis -Echocardiogram obtained; reviewed ESRD on dialysis PD catheter removed, now on HD Patient nephrology input Continue dialysis per nephrology DM II -SSI HTN -c/w home atenolol, torsemide and amlodipine. Monitor blood pressure Peripheral Vascular disease Multiple amputation history -vascular surgery consult, appreciate recs Hx CVA - left posterior frontal infarction in the MCA distribution in 2008, manifested by inability to spell a common word as well as a right centrum semiovale and right occipital lobe CVA 04/2014, manifested by left arm weakness that lasted several days before resolving. 04/2014 Carotid duplex showed < 50% carotid stenosis bilaterally (report scanned in [facility]). -06/2023 carotid duplex demonstrates less than 50% carotid stenosis b/l ICAs. --Continue aspirin, Plavix, statin Hx PE in 2010, treated with Coumadin for ~3 months. -No longer on anticoagulation Blurry Vision --MRI Brain: Progressive white matter disease likely on a small vessel ischemic basis. Multiple old cerebellar lacunar infarcts, old left thalamic lacunar infarct and old left frontal infarct. No acute infarcts identified. Progressive atrophy. Mild ventricular dilatation likely secondary to volume loss. -noted post operatively -no vision deficits -CT imaging with substantial vascular disease but no clear new infarct or hemorrhage Resolved DVT Px: Heparin SQ Code Status Full Code Disposition Rehab when accepted Admission and Anticipated Discharge Date Admission Date: October 10, 2024 Subjective Pt seen in follow up Currently lying in bed in NAD Patient denies any chest pain, dyspnea, abdominal pain, nausea, vomiting Waiting for placement Review of Systems Review of Systems: All systems reviewed & are unremarkable except as noted in Subjective Physical Exam Physical Exam: General Appearance:Moderately built and nourished, no apparent distress Head: normocephalic, Atraumatic Eyes: normal inspection, EOMI Neck: supple Respiratory/Chest: Normal breath sounds, CTA, No accessory muscle use Cardiovascular: S1, S2, No murmur Abdomen/GI:Soft, Non tender, Bowel sounds present Extremities/Musculoskeletal: S/P toes amputation , tips of R hand 4th, 5th fingers amputation Neurologic/Psych: awake, alert, answers appropriately, speech fluent, no facial asymmetry, moves extremities Skin: normal color, warm Results & Data Results & Data Vital Signs (Past 12 Hours) Vital Signs Temp Pulse Pulse Resp BP Pulse Ox O2 Del Method 11/03/24 03:02 37.0 C 61 18 137/74 93 Room Air 11/03/24 01:39 78 11/02/24 23:00 36.6 C 76 18 120/75 97 Room Air 11/02/24 20:00 36.8 C 78 18 126/77 96 Room Air Laboratory Results 11/03/24 11/02/24 11/02/24 Range/Units 06:04 20:16 16:47 WBC 9.37 (4.8-10.8) K/ul RBC 3.04 L (4.70-6.10) M/uL Hgb 9.7 L (14.0-18.0) g/dl Hct 29.2 L (42.0-52.0) % MCV 96.1 (80.0-100.0) fL MCH 31.9 (25.0-34.0) pg MCHC 33.2 (32.0-36.0) g/dL RDW Std Deviation 54.5 H (36.4-46.3) fL RDW Coeff of Kesha 15.5 H (11.5-14.5) % Plt Count 216 (130-400) K/uL MPV 9.9 (9.4-12.4) fL Sodium 135 L (136-145) mmol/L Potassium 4.1 (3.5-5.1) mmol/L Chloride 97 L (98-107) mmol/L Carbon Dioxide 29 (21-32) mmol/L Anion Gap 9 (3-11) BUN 55 H D (6-23) mg/dl Creatinine 4.95 H* D (0.6-1.4) mg/dl Est Cr Clr Drug Dosing 19.0 ml/min eGFR 12.41 BUN/Creatinine Ratio 11.1 (10-20) Glucose 99 (70-99(Fasting)) mg/dl POC Glucose 190 H 243 H (70-99) mg/dl Calcium 8.5 L (8.6-10.3) mg/dl Phosphorus 3.9 (2.5-4.9) mg/dl Magnesium 2.0 (1.7-2.4) mg/dl 11/02/24 11/02/24 11/02/24 Range/Units 13:46 08:41 08:06 WBC 9.16 (4.8-10.8) K/ul RBC 3.31 L (4.70-6.10) M/uL Hgb 10.0 L (14.0-18.0) g/dl Hct 31.9 L (42.0-52.0) % MCV 96.4 (80.0-100.0) fL MCH 30.2 (25.0-34.0) pg MCHC 31.3 L (32.0-36.0) g/dL RDW Std Deviation 54.6 H (36.4-46.3) fL RDW Coeff of Kesha 15.6 H (11.5-14.5) % Plt Count 234 (130-400) K/uL MPV 9.8 (9.4-12.4) fL Sodium 130 L (136-145) mmol/L Potassium 4.7 (3.5-5.1) mmol/L Chloride 93 L (98-107) mmol/L Carbon Dioxide 27 (21-32) mmol/L Anion Gap 10 (3-11) BUN 75 H (6-23) mg/dl Creatinine 6.72 H* (0.6-1.4) mg/dl Est Cr Clr Drug Dosing 14.0 ml/min eGFR 8.60 BUN/Creatinine Ratio 11.2 (10-20) Glucose 95 (70-99(Fasting)) mg/dl POC Glucose 112 H 97 (70-99) mg/dl Calcium 8.7 (8.6-10.3) mg/dl Phosphorus (2.5-4.9) mg/dl Magnesium (1.7-2.4) mg/dl Medications Administered Current Inpatient Medications Acetaminophen (Acetaminophen 325 Mg Tab) 650 mg PO Q4H PRN PRN Reason: Moderate Pain (Scale 4, 5, 6) Stop: 11/09/24 15:30 Last Admin: 11/02/24 14:22 Dose: 650 mg Amlodipine Besylate (Amlodipine Besylate 5 Mg Tab) 2.5 mg PO QAM [facility] Stop: 11/12/24 08:59 Last Admin: 11/02/24 08:09 Dose: Not Given Aspirin (Aspirin 81 Mg Ectab) 81 mg PO DAILY [facility] Stop: 11/14/24 08:59 Last Admin: 11/02/24 08:06 Dose: 81 mg Atenolol (Atenolol 50 Mg Tablet) 50 mg PO QAM [facility] Stop: 11/11/24 13:59 Last Admin: 11/02/24 08:07 Dose: 50 mg Atorvastatin Calcium (Atorvastatin 40 Mg Tab) 80 mg PO QPM [facility] Stop: 11/09/24 20:59 Last Admin: 11/02/24 21:13 Dose: 80 mg Clopidogrel Bisulfate (Clopidogrel Bisulfate 75 Mg Tab) 75 mg PO HS [facility] Stop: 11/09/24 20:59 Last Admin: 11/02/24 21:13 Dose: 75 mg Dextrose (Dextrose 50% 50 Ml Syringe) 25 - 50 ml IV UD PRN; Protocol PRN Reason: Hypoglycemia Protocol Stop: 11/09/24 15:30 Diclofenac Sodium (Diclofenac Sod 1% Gel 100 Gm Tube) 4 gm EXT Q6H [facility]; Protocol Stop: 11/13/24 10:29 Last Admin: 11/03/24 04:32 Dose: Not Given Docusate Sodium (Docusate Sodium 100 Mg Cap) 100 mg PO BID [facility] Stop: 11/11/24 20:59 Last Admin: 11/02/24 21:13 Dose: 100 mg Doxycycline Hyclate (Doxycycline Hyclate 100 Mg Cap) 100 mg PO BID [facility] Stop: 11/10/24 08:59 Gabapentin (Gabapentin 600 Mg Tab) 600 mg PO TID [facility] Stop: 11/09/24 15:30 Last Admin: 11/02/24 21:13 Dose: 600 mg Glucagon (Glucagon For Inj 1 Mg Vial) 1 mg SQ UD PRN; Protocol PRN Reason: Hypoglycemia Protocol Stop: 11/09/24 15:30 Glucose (Glucose 40% Gel 15 Gm Tube) 15 - 30 gm PO UD PRN; Protocol PRN Reason: Hypoglycemia Protocol Stop: 11/09/24 15:30 Glucose (Glucose 10 Tab/Tube) 4 - 8 tab PO UD PRN; Protocol PRN Reason: Hypoglycemia Protocol Stop: 11/09/24 15:30 Heparin Sodium (Porcine) (Heparin Sod 5,000 Unit/0.5 Ml Vial) 5,000 units SQ Q8 [facility] Stop: 11/10/24 13:59 Last Admin: 11/03/24 05:58 Dose: 5,000 units Cefazolin Sodium (Ancef 1000mg) 1,000 mg in 7.5 mls @ 2.5 mls/min IV Q24H [facility] Stop: 11/22/24 15:59 Last Admin: 11/02/24 16:32 Dose: 2.5 mls/min Cefepime HCl (Maxipime 2000mg) 1,000 mg in 10 mls @ 5 mls/min IV Q24H [facility]; Protocol Stop: 11/09/24 22:44 Last Admin: 11/02/24 23:16 Dose: 5 mls/min Insulin Aspart (Insulin Aspart Per Unit Charge) 0 units SC ACHS [facility] Stop: 11/13/24 05:59 Last Admin: 11/02/24 21:14 Dose: 2 units Insulin Glargine (Lantus Per Unit Charge) 16 units SC HS [facility] Stop: 12/02/24 20:59 Last Admin: 11/02/24 21:14 Dose: 16 units Lactobacillus Acidophilus (Advanced Probiotic 625 Mg Capsule) 1,250 mg PO DAILY [facility] Stop: 12/01/24 15:29 Last Admin: 11/02/24 08:06 Dose: 1,250 mg Lidocaine (Lidocaine 5% 1 Patch) 1 patch TD QAM [facility] Stop: 11/18/24 13:44 Last Admin: 11/02/24 08:11 Dose: Not Given Mineral Oil (Mineral Oil Enema 133 Ml Btl) 133 ml MT DAILY PRN PRN Reason: Constipation Stop: 11/16/24 13:42 Miscellaneous (Carbohydrates For Hypoglycemia ) 15 - 30 gm PO UD PRN PRN Reason: Hypoglycemia Protocol Stop: 11/09/24 15:30 Miscellaneous (Remove Lidoderm Patch) 1 each N/A DAILY@2100 [facility] Stop: 11/18/24 20:59 Last Admin: 11/02/24 21:14 Dose: 1 each Miscellaneous Information (Pharmacy Glycemic Mgmt Consult) 1 each N/A UD PRN; Protocol PRN Reason: Consult Stop: 11/09/24 11:44 Mupirocin (Mupirocin 2% Oint 22 Gm Tube) 1 appln EXT DAILY [facility] Stop: 11/30/24 08:59 Last Admin: 11/02/24 08:08 Dose: 1 appln Ondansetron HCl (Ondansetron Inj 2 Mg/Ml 2 Ml Vial) 4 mg IV Q4H PRN PRN Reason: Nausea And Vomiting Stop: 11/09/24 15:30 Last Admin: 10/16/24 12:21 Dose: 4 mg Oxycodone HCl (Oxycodone Hcl Ir 5 Mg Tab (Immediate Release)) 5 mg PO Q8H PRN PRN Reason: Pain Stop: 11/10/24 17:29 Last Admin: 11/02/24 21:58 Dose: 5 mg Polyethylene Glycol (Polyethylene (Miralax) 17 Gm Pack) 17 gm PO DAILY PRN PRN Reason: Constipation Stop: 11/16/24 13:44 Sennosides (Senna 8.6 Mg Tab) 8.6 mg PO QAM [facility] Stop: 11/18/24 13:44 Last Admin: 11/01/24 08:20 Dose: Not Given Torsemide (Torsemide 100 Mg Tab) 100 mg PO DAILY [facility] Stop: 11/12/24 08:59 Last Admin: 11/02/24 08:07 Dose: 100 mg Vitamin D (Cholecalciferol 125 Mcg (5,000 Units) Tab) [facility] [place] Stop: 11/14/24 13:59 Last Admin: 11/02/24 08:07 Dose: 125 mcg (1) Sepsis Sepsis acute organ dysfunction status: with acute organ dysfunction Sepsis type: sepsis due to unspecified organism Severe sepsis acute organ dysfunction type: encephalopathy Severe sepsis shock status: without septic shock Qualified Code(s): A41.9 - Sepsis, unspecified organism; R65.20 - Severe sepsis without septic shock; G93.41 - Metabolic encephalopathy
[2024-11-03] MEDS ORDERED: DOXYCYCLINE HYCLATE 100 MG CAP PO SCH (09:00)
[2024-11-03] MEDS: DOXYCYCLINE HYCLATE 100 MG CAP PO SCH (09:37)
[2024-11-03 21:44] LABS: Appearance Urine Turbid (Clear); Bacteria Urine Automated 4+ (None Seen); Cast Urine Automated >20 /lpf (0-2); Glucose Urine UA Negative (Negative); RBC Urine Automated 0-2 /hpf (0-2); WBC Urine Automated >50 /hpf (0-5)
[2024-11-04 06:11] LABS: Hematocrit (blood only) 30.0 % (42.0-52.0); Hemoglobin 9.8 g/dl (14.0-18.0); Mean Corpuscular Hemoglobin 31.5 pg (25.0-34.0); Mean Corpuscular Volume 96.5 fL (80.0-100.0); Platelet Count 225 K/uL (130-400); RDW Standard Deviation 55.6 fL (36.4-46.3); Red Blood Count 3.11 M/uL (4.70-6.10); White Blood Count 8.16 K/ul (4.8-10.8)
[2024-11-04 06:41] LABS: Anion Gap 10.0 (3-11); Blood Urea Nitrogen 80.0 mg/dl (6-23); Calcium 8.5 mg/dl (8.6-10.3); Carbon Dioxide 27.0 mmol/L (21-32); Chloride 95.0 mmol/L (98-107); Creatinine Clr Calc Pharmacy 14.5 ml/min; Glucose 139.0 mg/dl (70-99(Fasting)); Magnesium 1.9 mg/dl (1.7-2.4); Potassium 4.5 mmol/L (3.5-5.1); Sodium 132.0 mmol/L (136-145)
[2024-11-04] MEDS ORDERED: SODIUM CHLORIDE 0.9% 1,000 ML IV PRN (07:00)
--- NOTE | 2024-11-04 10:38 | Dialysis Progress Note ---
Date of Service November 04, 2024 Assessment & Plan Admission and Anticipated Discharge Date Admission Date: October 10, 2024 Subjective Assessment & Plan (1) Sepsis: Plan: PD fluid negative for peritonitis. No need of IP abx . ID eval done. MSSA bacteremia on 10/12 admission. ANI--negative. getting Some Amputations. Blood C/s from 10/14 so far negative. 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 he has pus like urine today. Will get cultures and sensitivity as per ID patient must have daily iV abx so will need PICC line given VHD.. However as of now we have no resolution about Discharge. Once we know the discharge date can proceed with PICC line or Midline ( preferably). he has already done 4 weeks in hospital already !!!! (2) End stage renal disease on dialysis: Plan: patient does not have much residual renal function left as he makes only about 500ml of urine per day, has made as much as 1.2L on one day at least this admission Previously was on hemodialysis the PD and has now changed back to HD for foreseeable future not only for rehab but b/c of care-partner fatigue/health issues Will take 3 kilo off hgb is low and will give 10K procrit. ESRD secondary to diabetes hypertension and chronic diffuse vascular disease. fluid status acceptable. Was very fluid overloaded on Admission though PD cath removed and CVC placed on October 21. On MWF schedule currently. Subjective Seen during dialysis. ESRD. No SOB. still waiting for rehab placement. CVC fine. No issues with dialysis so far. Review of Systems Review of Systems: All other systems were reviewed and negative except as noted in HPI Physical Exam Physical Exam: General exam: Appears comfortable, no acute distress HEENT: Pupils are equal and reactive to light Neck: No JVD, neck is supple trachea is midline Respiratory system: Clear breath sounds bilaterally. Gastrointestinal: Abdomen is soft, non distended, non tender, bowel sounds are present CVS: Regular rate and rhythm. No murmurs, rubs or gallops Musculoskeletal: No joint or muscle tenderness Extremities: Non tender, no edema, peripheral pulses are present Neuro: Oriented, no tremors, no focal neurological deficits Skin: No rashes Results & Data Vital Signs (Past 12 Hours) Vital Signs Temp Pulse Pulse Pulse Resp BP BP 11/04/24 09:41 69 127/44 L 11/04/24 09:30 72 95/45 L 11/04/24 09:06 71 156/65 H 11/04/24 09:01 36.5 C 74 11/04/24 08:42 36.6 C 67 18 125/77 11/04/24 07:42 65 11/04/24 03:47 36.8 C 70 12 134/76 11/03/24 23:56 Pulse Ox O2 Del Method 11/04/24 09:41 11/04/24 09:30 11/04/24 09:06 11/04/24 09:01 11/04/24 08:42 99 Room Air 11/04/24 07:42 11/04/24 03:47 96 Room Air 11/03/24 23:56 Room Air
[2024-11-04] MEDS: EPOETIN ALFA 4,000 UNIT/ML VIAL IV ONE (11:07)
[2024-11-04] MEDS: HEPARIN SOD (PORCINE) 1000 UNIT/ML IV ONE (11:08)
[2024-11-04] MEDS: HEPARIN SOD (PORCINE) 1000 UNIT/ML IV SCH (11:08)
--- NOTE | 2024-11-04 13:49 | Pharmacy Report ---
Pharmacy Glycemic Short Note 2 - Date of Service November 04, 2024 - Glycemic Short BSG Results (Last 24 hours): 11/03/24 11/03/24 11/04/24 16:58 19:48 05:28 Glucose 139 H POC Glucose 168 H 198 H 11/04/24 07:44 Glucose POC Glucose 157 H OUTPATIENT ANTIDIABETIC REGIMEN: * NovoLog 5 units SQ QAM, 10 units @ noon, 10 units in afternoon, CF 20 >140mg/dL * Lantus 20 untis SQ BID * HbA1c is unreliable in ESRD patients d/t interactions between the A1c analyzing technique and high levels of urea in ESRD, reduced RBC life span, iron deficiency anemia, and EPO administration. HbA1c > 7.5% in ESRD patient may overestimate the extent of hyperglycemia in ESRD patients. ASSESSMENT: 11/04: * Otto received a total of 44 units of insulin yesterday (16 units were basal and 28 units were bolus). Most BSGs were above goal yesterday. * Fasting BSG was 157mg/dL this morning. HS Lantus dose was increased slightly and CR was tightened. * He had HD this morning. 11/02: * Otto received a total of 58 units of insulin yesterday (18 units were basal and 40 units were bolus). BSGs were [phone]/dL. * Fasting BSG was below goal this morning and reymundo to only 112mg/dL at lunch. Decreased HS Lantus by ~20% and loosened CR. * He did have HD today 10/31 * Otto received a total of 60 units of insulin yesterday (18 units were basal and 42 units were bolus). * Fasting BSG was 142mg/dL this morning. Patient is scheduled for HD today. Will continue Basal and bolus insulin regimens as ordered without change 10/28 * Patient received total of 51 units of insulin yesterday, of which 15 units were basal * Fasting BSG 148 mg/dL - continue with scale for basal at HS * HD again today, continue same CF/CR 10/26 * Patient received total of 59 units of insulin yesterday, of which 30 units were basal insulin * Fasting BSG 76 mg/dL - will hold AM lantus and decrease basal starting tonight with scale * No change to Cf/CR 10/25 * Patient received total of 64 units of insulin yesterday of which 30 units were basal * Fasting BSG within range 105 mg/dL - no change * Continue same CF/CR for now 10/23 * Otto received a total of 50 units of SQ insulin yesterday (20 units basal + 30 units bolus). * Fasting BSG = 174 mg/dL today. Oral intake improved. Will resume BID dosing of Lantus. * HD catheter placed on 10/21. Patient had 4 hour HD session that day. 10/21: * BSGs [phone]/dL the last 24h. Received 40units of basal and 27 units of bolus insulin yesterday. * NPO this AM for HD cath placement and remains NPO this afternoon. AM Lantus held by nursing this morning given fasting BSG in 90s and prolonged NPO status. * Resume Lantus 20 units tonight and then reassess basal in AM. No change to Novolog. 10/20: * Patient received 64 units of insulin yesterday, 40 of which were basal. BSGs have been well controlled over the past 24 hours: [phone] mg/dL * Fasting BSG remains adequate at 115 mg/dL. * Patient is ordered and tolerating a diet. * Plan to transition to HD tomorrow from PD. 10/18 * Patient has received 25 units BID per scale x last 3 days- fasting within range, will schedule * BSGs slightly lower than goal with lunch/dinner yesterday but not hypoglycemic. Patient has refused with insulin with dinner leading to high HS blood sugar. Will loosen carb ratio slightly to try and maintain BSG 110-140 mg/dL 10/14 * NPO for OR this AM * Fasting BSG elevated this AM. Increased lantus sliding scale. * Tightened CF and CR 2nd elevated post-prandial glucose. 10/13 * Diet resumed this AM after ANI * Fasting BSG elevated. Will increase Lantus * One post-prandial BSG elevated yesterday after tightening Novolog parameters. Will not make further adjustments for now, but may consider tightening Novolog parameters if post-prandial BSG's remain elevated. PLAN FOR INPATIENT GLYCEMIC CONTROL: * Hold outpatient diabetes medications * Basal insulin * Lantus 17 units SQ HS * Bolus insulin * NovoLog per scale ACHS or Q6hrs while NPO * Goal Range: Low 110 mg/dL - High 140 mg/dL * Correction Factor: 30 mg/dL/unit * Nutritional / Prandial insulin per carb ratio of 1 unit per 7 grams CHO consumed
--- NOTE | 2024-11-04 13:58 | Hospitalist Progress Note ---
Date of Service November 04, 2024 Assessment & Plan (1) Sepsis: (2) Diabetes mellitus: (3) Diabetic peripheral neuropathy associated with type 2 diabetes mellitus: (4) Peripheral vascular disease: (5) ESRD on peritoneal dialysis: (6) HTN (hypertension): (7) S/P cardiac pacemaker procedure: (8) History of diabetic ulcer of foot: Plan Per previous provider w/ addendum: Patient is a 64 yr male with end-stage renal disease on peritoneal dialysis, DM type II, CAD, HTN history of complete heart block, s/p pacemaker insertion, aortic valve, bicuspid, history of PE, peripheral vascular disease, s/p left great toe amputation,chronic left 2nd and 3rd toe wound, left well-healed heel ulcer, dry gangrene of right hand, who presents to the hospital with approximately 24 hours of increased confusion, lethargy, fever, chills/rigors 2/2 sepsis. Severe Sepsis, resolved MSSA bacteremia Left 2nd/3rd Digit Foot Osteomyelitis s/p amputation Right 4th/5th Digit Osteomyelitis s/p amputation -Foot MRI: OM of left 2nd and 3rd toes. -MRI L spine (done for concerns of reported back pain): no concerns for OM. -Admitting (10/10) Bl Cx: 4 out of 4 bottles growing MSSA -Repeat Bl cx 10/12: 1 of 4 bottle growing S. Aureus [Of note, pt underwent L toe amputation later morning of 10/12]. -Left foot operative Cx 10/12: MSSA, also growing Helococcus and Anaerococcus. -MRI Rt finger (4th and 5th) 10/13: osteomyelitis at the fourth and fifth distal phalanges. -Right ring finger operative Cx 10/14: staph and Enterobacter and cutibacterium growing, follow final results. Plan: -ID shaunna, recommends iv cefazolin daily. for 6 weeks from the date of last neg blood culture. ~Discussed with ID again 10/19 evening regarding additional growth in operative cultures, no new antibiotic coverage needed, continue with prior antibiotic plan. -Due to patient's increased need pt's states she won't be able to care at home ~Plan for peritoneal dialysis catheter removal and TDC placement prior to discharge Continue management as above per prior provider Needs follow-up with podiatry for suture removal Elevate left foot at rest and wear heel offloading boots at rest --Pathology: Marked acute osteomyelitis with superficial ulceration left second toe. Bone and soft tissue with mild reactive changes. Marked acute osteomyelitis with superficial ulceration left third toe. Unremarkable bone and soft tissue. Discussed with ID on 10/28/24: Agrees to continue 6-week course of IV cefazolin given valvular heart disease. Needs PICC line PICC line consent obtained on 10/29/2024 We will hold off on placing PICC line (or possibly midline? as pt received weeks of antibiotics already ) until placement arranged Continue current management Suspected UTI Urine culture inconclusive, even when repeated Repeat culture via cath - results pending Had multiple BMs reported several days ago (denies diarrhea) Probiotics were started check stool studies if develops diarrhea Will broaden antibiotics if needed Abnormal CT chest Enlarging inflammatory nodules --CT Chest:Slightly worsened centrilobular interstitial infiltrates in the left upper lobe and bilateral lower lobes. This could be due to an atypical inflammatory process such as JEM infection. Interval increase in size and number of small pulmonary nodules. These may be inflammatory but are indeterminate in nature. A follow-up chest CT is recommended in 6 months. Emphysema. Mild right hilar adenopathy, nonspecific in nature. Splenomegaly --Needs follow-up with pulmonology with repeat CT in 3-6 months as outpatient Hyponatremia Last sodium level 129 Continue fluid restriction Monitor sodium levels Appreciate nephrology input Back Pain Vitamin D deficiency -likely 2/2 deconditioning. vitamin D level low -increased vit D3 to 125 mcg daily -OOB few times a day and PT daily as able Appreciate pain management input Needs repeat vitamin D levels as outpatient Lumbar x-ray showed multilevel degenerative disc disease, previously also had L- spine MRI, as above Continue pain control as needed Elevated high sensitive troponin Likely demand ischemia in setting of sepsis -Echocardiogram obtained; reviewed ESRD on dialysis PD catheter removed, now on HD Patient nephrology input Continue dialysis per nephrology DM II -SSI HTN -c/w home atenolol, torsemide and amlodipine. Monitor blood pressure Peripheral Vascular disease Multiple amputation history -vascular surgery consult, appreciate recs Hx CVA - left posterior frontal infarction in the MCA distribution in 2008, manifested by inability to spell a common word as well as a right centrum semiovale and right occipital lobe CVA 04/2014, manifested by left arm weakness that lasted several days before resolving. 04/2014 Carotid duplex showed < 50% carotid stenosis bilaterally (report scanned in epic). -06/2023 carotid duplex demonstrates less than 50% carotid stenosis b/l ICAs. --Continue aspirin, Plavix, statin Hx PE in 2010, treated with Coumadin for ~3 months. -No longer on anticoagulation Blurry Vision --MRI Brain: Progressive white matter disease likely on a small vessel ischemic basis. Multiple old cerebellar lacunar infarcts, old left thalamic lacunar infarct and old left frontal infarct. No acute infarcts identified. Progressive atrophy. Mild ventricular dilatation likely secondary to volume loss. -noted post operatively -no vision deficits -CT imaging with substantial vascular disease but no clear new infarct or hemorrhage Resolved DVT Px: Heparin SQ Code Status Full Code Disposition Rehab when accepted Admission and Anticipated Discharge Date Admission Date: October 10, 2024 Subjective Pt seen in follow up Pt seen on HD Patient denies any chest pain, dyspnea, abdominal pain, nausea, vomiting UA - pending wound cultx - discussed with wound care / likely not reliable - results pending Pt was changed to cefepime overnight d/t wound ? infection, cont. for now Review of Systems Review of Systems: All systems reviewed & are unremarkable except as noted in Subjective Physical Exam Physical Exam: General Appearance: Moderately built and nourished, no apparent distress Head: normocephalic, Atraumatic Eyes: normal inspection, EOMI Neck: supple Respiratory/Chest: Normal breath sounds, CTA, No accessory muscle use Cardiovascular: S1, S2, No murmur Abdomen/GI:Soft, Non tender, Bowel sounds present Extremities/Musculoskeletal: S/P toes amputation , tips of R hand 4th, 5th fingers amputation Neurologic/Psych: awake, alert, answers appropriately, speech fluent, no facial asymmetry, moves extremities Skin: normal color, warm Results & Data Results & Data Vital Signs (Past 12 Hours) Vital Signs Temp Pulse Pulse Pulse Resp BP BP 11/04/24 13:25 36.7 C 70 11/04/24 13:00 70 111/67 11/04/24 12:32 11/04/24 12:30 68 112/49 L 11/04/24 12:00 71 113/48 L 11/04/24 11:30 68 112/64 11/04/24 11:00 70 96/55 L 11/04/24 10:30 77 111/60 11/04/24 10:00 72 134/59 L 11/04/24 09:41 69 127/44 L 11/04/24 09:30 72 95/45 L 11/04/24 09:06 71 156/65 H 11/04/24 09:01 36.5 C 74 11/04/24 08:42 36.6 C 67 18 125/77 11/04/24 07:42 65 11/04/24 03:47 36.8 C 70 12 134/76 BP Pulse Ox O2 Del Method 11/04/24 13:25 134/83 11/04/24 13:00 11/04/24 12:32 Room Air 11/04/24 12:30 11/04/24 12:00 11/04/24 11:30 11/04/24 11:00 11/04/24 10:30 11/04/24 10:00 11/04/24 09:41 11/04/24 09:30 11/04/24 09:06 11/04/24 09:01 11/04/24 08:42 99 Room Air 11/04/24 07:42 11/04/24 03:47 96 Room Air Laboratory Results 11/04/24 11/04/24 11/03/24 Range/Units 07:44 05:28 21:11 WBC 8.16 (4.8-10.8) K/ul RBC 3.11 L (4.70-6.10) M/uL Hgb 9.8 L (14.0-18.0) g/dl Hct 30.0 L (42.0-52.0) % MCV 96.5 (80.0-100.0) fL MCH 31.5 (25.0-34.0) pg MCHC 32.7 (32.0-36.0) g/dL RDW Std Deviation 55.6 H (36.4-46.3) fL RDW Coeff of Kesha 15.6 H (11.5-14.5) % Plt Count 225 (130-400) K/uL MPV 9.9 (9.4-12.4) fL Sodium 132 L (136-145) mmol/L Potassium 4.5 (3.5-5.1) mmol/L Chloride 95 L (98-107) mmol/L Carbon Dioxide 27 (21-32) mmol/L Anion Gap 10 (3-11) BUN 80 H D (6-23) mg/dl Creatinine 6.49 H* D (0.6-1.4) mg/dl Est Cr Clr Drug Dosing 14.5 ml/min eGFR 8.96 BUN/Creatinine Ratio 12.3 (10-20) Glucose 139 H (70-99(Fasting)) mg/dl POC Glucose 157 H (70-99) mg/dl Calcium 8.5 L (8.6-10.3) mg/dl Phosphorus 4.3 (2.5-4.9) mg/dl Magnesium 1.9 (1.7-2.4) mg/dl Urine Color Yellow Urine Appearance Turbid A (Clear) Urine pH 6.5 (4.5-7.5) Ur Specific [place] 1.012 (1.000-1.030) Urine Protein 3+ H (Negative) Urine Glucose (UA) Negative (Negative) Urine Ketones Trace H (Negative) Urine Blood 3+ H (Negative) Urine Nitrite Negative (Negative) Urine Bilirubin Negative (Negative) Urine Urobilinogen Negative (Negative) Ur Leukocyte Esterase 3+ H (Negative) Urine WBC (Auto) >50 H (0-5) /hpf Urine RBC (Auto) 0-2 (0-2) /hpf U Hyaline Cast (Auto) >20 H (0-2) /lpf U Epithel Cells (Auto) 3-5 H (0-2) /hpf Urine Bacteria (Auto) 4+ H (None Seen) Urine Mucus Present A (None Prsent) Urine Comment 11/03/24 11/03/24 Range/Units 19:48 16:58 WBC (4.8-10.8) K/ul RBC (4.70-6.10) M/uL Hgb (14.0-18.0) g/dl Hct (42.0-52.0) % MCV (80.0-100.0) fL MCH (25.0-34.0) pg MCHC (32.0-36.0) g/dL RDW Std Deviation (36.4-46.3) fL RDW Coeff of Kesha (11.5-14.5) % Plt Count (130-400) K/uL MPV (9.4-12.4) fL Sodium (136-145) mmol/L Potassium (3.5-5.1) mmol/L Chloride (98-107) mmol/L Carbon Dioxide (21-32) mmol/L Anion Gap (3-11) BUN (6-23) mg/dl Creatinine (0.6-1.4) mg/dl Est Cr Clr Drug Dosing ml/min eGFR BUN/Creatinine Ratio (10-20) Glucose (70-99(Fasting)) mg/dl POC Glucose 198 H 168 H (70-99) mg/dl Calcium (8.6-10.3) mg/dl Phosphorus (2.5-4.9) mg/dl Magnesium (1.7-2.4) mg/dl Urine Color Urine Appearance (Clear) Urine pH (4.5-7.5) Ur Specific [place] (1.000-1.030) Urine Protein (Negative) Urine Glucose (UA) (Negative) Urine Ketones (Negative) Urine Blood (Negative) Urine Nitrite (Negative) Urine Bilirubin (Negative) Urine Urobilinogen (Negative) Ur Leukocyte Esterase (Negative) Urine WBC (Auto) (0-5) /hpf Urine RBC (Auto) (0-2) /hpf U Hyaline Cast (Auto) (0-2) /lpf U Epithel Cells (Auto) (0-2) /hpf Urine Bacteria (Auto) (None Seen) Urine Mucus (None Prsent) Urine Comment Medications Administered Current Inpatient Medications Acetaminophen (Acetaminophen 325 Mg Tab) 650 mg PO Q4H PRN PRN Reason: Moderate Pain (Scale 4, 5, 6) Stop: 11/09/24 15:30 Last Admin: 11/03/24 09:41 Dose: 650 mg Amlodipine Besylate (Amlodipine Besylate 5 Mg Tab) [facility] [place] Stop: 11/12/24 08:59 Last Admin: 11/04/24 13:21 Dose: Not Given Aspirin (Aspirin 81 Mg Ectab) 81 mg PO DAILY [facility] Stop: 11/14/24 08:59 Last Admin: 11/04/24 08:21 Dose: 81 mg Atenolol (Atenolol 50 Mg Tablet) 50 mg PO QAM [facility] Stop: 11/11/24 13:59 Last Admin: 11/04/24 13:21 Dose: Not Given Atorvastatin Calcium (Atorvastatin 40 Mg Tab) 80 mg PO QPM [facility] Stop: 11/09/24 20:59 Last Admin: 11/03/24 21:02 Dose: 80 mg Clopidogrel Bisulfate (Clopidogrel Bisulfate 75 Mg Tab) 75 mg PO HS [facility] Stop: 11/09/24 20:59 Last Admin: 11/03/24 21:02 Dose: 75 mg Dextrose (Dextrose 50% 50 Ml Syringe) 25 - 50 ml IV UD PRN; Protocol PRN Reason: Hypoglycemia Protocol Stop: 11/09/24 15:30 Diclofenac Sodium (Diclofenac Sod 1% Gel 100 Gm Tube) 4 gm EXT Q6H [facility]; Protocol Stop: 11/13/24 10:29 Last Admin: 11/04/24 12:38 Dose: Not Given Docusate Sodium (Docusate Sodium 100 Mg Cap) 100 mg PO BID [facility] Stop: 11/11/24 20:59 Last Admin: 11/04/24 08:36 Dose: 100 mg Doxycycline Hyclate (Doxycycline Hyclate 100 Mg Cap) 100 mg PO BID [facility] Stop: 11/10/24 08:59 Last Admin: 11/04/24 13:20 Dose: Not Given Gabapentin (Gabapentin 600 Mg Tab) 600 mg PO TID [facility] Stop: 11/09/24 15:30 Last Admin: 11/04/24 13:45 Dose: 600 mg Glucagon (Glucagon For Inj 1 Mg Vial) 1 mg SQ UD PRN; Protocol PRN Reason: Hypoglycemia Protocol Stop: 11/09/24 15:30 Glucose (Glucose 40% Gel 15 Gm Tube) 15 - 30 gm PO UD PRN; Protocol PRN Reason: Hypoglycemia Protocol Stop: 11/09/24 15:30 Glucose (Glucose 10 Tab/Tube) 4 - 8 tab PO UD PRN; Protocol PRN Reason: Hypoglycemia Protocol Stop: 11/09/24 15:30 Heparin Sodium (Porcine) (Heparin Sod 5,000 Unit/0.5 Ml Vial) 5,000 units SQ Q8 [facility] Stop: 11/10/24 13:59 Last Admin: 11/04/24 13:45 Dose: 5,000 units Cefazolin Sodium (Ancef 1000mg) 1,000 mg in 7.5 mls @ 2.5 mls/min IV Q24H [facility] Stop: 11/22/24 15:59 Last Admin: 11/02/24 16:32 Dose: 2.5 mls/min Cefepime HCl (Maxipime 2000mg) 1,000 mg in 10 mls @ 5 mls/min IV Q24H [facility]; Protocol Stop: 11/09/24 22:44 Last Admin: 11/03/24 22:50 Dose: 5 mls/min Insulin Aspart (Insulin Aspart Per Unit Charge) 0 units SC ACHS [facility] Stop: 11/13/24 05:59 Last Admin: 11/04/24 12:39 Dose: Not Given Insulin Glargine (Lantus Per Unit Charge) 17 units SC HS [facility] Stop: 12/04/24 20:59 Lactobacillus Acidophilus (Advanced Probiotic 625 Mg Capsule) 1,250 mg PO DAILY [facility] Stop: 12/01/24 15:29 Last Admin: 11/04/24 08:21 Dose: 1,250 mg Lidocaine (Lidocaine 5% 1 Patch) 1 patch TD QAM [facility] Stop: 11/18/24 13:44 Last Admin: 11/04/24 08:23 Dose: 1 patch Mineral Oil (Mineral Oil Enema 133 Ml Btl) 133 ml [place] DAILY PRN PRN Reason: Constipation Stop: 11/16/24 13:42 Miscellaneous (Carbohydrates For Hypoglycemia ) 15 - 30 gm PO UD PRN PRN Reason: Hypoglycemia Protocol Stop: 11/09/24 15:30 Miscellaneous (Remove Lidoderm Patch) 1 each N/A DAILY@2100 [facility] Stop: 11/18/24 20:59 Last Admin: 11/03/24 21:05 Dose: Not Given Miscellaneous Information (Pharmacy Glycemic Mgmt Consult) 1 each N/A UD PRN; Protocol PRN Reason: Consult Stop: 11/09/24 11:44 Mupirocin (Mupirocin 2% Oint 22 Gm Tube) 1 appln EXT DAILY [facility] Stop: 11/30/24 08:59 Last Admin: 11/04/24 08:23 Dose: 1 appln Ondansetron HCl (Ondansetron Inj 2 Mg/Ml 2 Ml Vial) 4 mg IV Q4H PRN PRN Reason: Nausea And Vomiting Stop: 11/09/24 15:30 Last Admin: 10/16/24 12:21 Dose: 4 mg Oxycodone HCl (Oxycodone Hcl Ir 5 Mg Tab (Immediate Release)) 5 mg PO Q8H PRN PRN Reason: Pain Stop: 11/10/24 17:29 Last Admin: 11/03/24 22:59 Dose: 5 mg Polyethylene Glycol (Polyethylene (Miralax) 17 Gm Pack) 17 gm PO DAILY PRN PRN Reason: Constipation Stop: 11/16/24 13:44 Sennosides (Senna 8.6 Mg Tab) 8.6 mg PO QAM [facility] Stop: 11/18/24 13:44 Last Admin: 11/01/24 08:20 Dose: Not Given Torsemide (Torsemide 100 Mg Tab) 100 mg PO DAILY [facility] Stop: 11/12/24 08:59 Last Admin: 11/04/24 08:22 Dose: 100 mg Vitamin D (Cholecalciferol 125 Mcg (5,000 Units) Tab) 125 mcg PO QAM [facility] Stop: 11/14/24 13:59 Last Admin: 11/04/24 08:22 Dose: 125 mcg (1) Sepsis Sepsis acute organ dysfunction status: with acute organ dysfunction Sepsis type: sepsis due to unspecified organism Severe sepsis acute organ dysfunction type: encephalopathy Severe sepsis shock status: without septic shock Qualified Code(s): A41.9 - Sepsis, unspecified organism; R65.20 - Severe sepsis without septic shock; G93.41 - Metabolic encephalopathy
[2024-11-04] MEDS: LANTUS PER UNIT CHARGE SC SCH (21:35)
--- NOTE | 2024-11-05 07:37 | Hospitalist Progress Note ---
Date of Service November 05, 2024 Assessment & Plan (1) Sepsis: (2) Diabetes mellitus: (3) Diabetic peripheral neuropathy associated with type 2 diabetes mellitus: (4) Peripheral vascular disease: (5) ESRD on peritoneal dialysis: (6) HTN (hypertension): (7) S/P cardiac pacemaker procedure: (8) History of diabetic ulcer of foot: Plan Per previous provider w/ addendum: Patient is a 64 yr male with end-stage renal disease on peritoneal dialysis, DM type II, CAD, HTN history of complete heart block, s/p pacemaker insertion, aortic valve, bicuspid, history of PE, peripheral vascular disease, s/p left great toe amputation,chronic left 2nd and 3rd toe wound, left well-healed heel ulcer, dry gangrene of right hand, who presents to the hospital with approximately 24 hours of increased confusion, lethargy, fever, chills/rigors 2/2 sepsis. Severe Sepsis, resolved MSSA bacteremia Left 2nd/3rd Digit Foot Osteomyelitis s/p amputation Right 4th/5th Digit Osteomyelitis s/p amputation -Foot MRI: OM of left 2nd and 3rd toes. -MRI L spine (done for concerns of reported back pain): no concerns for OM. -Admitting (10/10) Bl Cx: 4 out of 4 bottles growing MSSA -Repeat Bl cx 10/12: 1 of 4 bottle growing S. Aureus [Of note, pt underwent L toe amputation later morning of 10/12]. -Left foot operative Cx 10/12: MSSA, also growing Helococcus and Anaerococcus. -MRI Rt finger (4th and 5th) 10/13: osteomyelitis at the fourth and fifth distal phalanges. -Right ring finger operative Cx 10/14: staph and Enterobacter and cutibacterium growing, follow final results. Plan: -ID shaunna, recommends iv cefazolin daily. for 6 weeks from the date of last neg blood culture. ~Discussed with ID again 10/19 evening regarding additional growth in operative cultures, no new antibiotic coverage needed, continue with prior antibiotic plan. -Due to patient's increased need pt's states she won't be able to care at home ~Plan for peritoneal dialysis catheter removal and TDC placement prior to discharge Continue management as above per prior provider Needs follow-up with podiatry for suture removal Elevate left foot at rest and wear heel offloading boots at rest --Pathology: Marked acute osteomyelitis with superficial ulceration left second toe. Bone and soft tissue with mild reactive changes. Marked acute osteomyelitis with superficial ulceration left third toe. Unremarkable bone and soft tissue. Discussed with ID on 10/28/24: Agrees to continue 6-week course of IV cefazolin given valvular heart disease. Needs PICC line PICC line consent obtained on 10/29/2024 We will hold off on placing PICC line (or possibly midline? as pt received weeks of antibiotics already ) until placement arranged Continue current management Suspected UTI Urine culture inconclusive, even when repeated Repeat culture via cath - results pending Had multiple BMs reported several days ago (denies diarrhea) Probiotics were started check stool studies if develops diarrhea Will broaden antibiotics if needed Abnormal CT chest Enlarging inflammatory nodules --CT Chest:Slightly worsened centrilobular interstitial infiltrates in the left upper lobe and bilateral lower lobes. This could be due to an atypical inflammatory process such as JEM infection. Interval increase in size and number of small pulmonary nodules. These may be inflammatory but are indeterminate in nature. A follow-up chest CT is recommended in 6 months. Emphysema. Mild right hilar adenopathy, nonspecific in nature. Splenomegaly --Needs follow-up with pulmonology with repeat CT in 3-6 months as outpatient Hyponatremia Last sodium level 129 Continue fluid restriction Monitor sodium levels Appreciate nephrology input Back Pain Vitamin D deficiency -likely 2/2 deconditioning. vitamin D level low -increased vit D3 to 125 mcg daily -OOB few times a day and PT daily as able Appreciate pain management input Needs repeat vitamin D levels as outpatient Lumbar x-ray showed multilevel degenerative disc disease, previously also had L- spine MRI, as above Continue pain control as needed Elevated high sensitive troponin Likely demand ischemia in setting of sepsis -Echocardiogram obtained; reviewed ESRD on dialysis PD catheter removed, now on HD Patient nephrology input Continue dialysis per nephrology DM II -SSI HTN -c/w home atenolol, torsemide and amlodipine. Monitor blood pressure Peripheral Vascular disease Multiple amputation history -vascular surgery consult, appreciate recs Hx CVA - left posterior frontal infarction in the MCA distribution in 2008, manifested by inability to spell a common word as well as a right centrum semiovale and right occipital lobe CVA 04/2014, manifested by left arm weakness that lasted several days before resolving. 04/2014 Carotid duplex showed < 50% carotid stenosis bilaterally (report scanned in epic). -06/2023 carotid duplex demonstrates less than 50% carotid stenosis b/l ICAs. --Continue aspirin, Plavix, statin Hx PE in 2010, treated with Coumadin for ~3 months. -No longer on anticoagulation Blurry Vision --MRI Brain: Progressive white matter disease likely on a small vessel ischemic basis. Multiple old cerebellar lacunar infarcts, old left thalamic lacunar infarct and old left frontal infarct. No acute infarcts identified. Progressive atrophy. Mild ventricular dilatation likely secondary to volume loss. -noted post operatively -no vision deficits -CT imaging with substantial vascular disease but no clear new infarct or hemorrhage Resolved DVT Px: Heparin SQ Code Status Full Code Disposition Rehab when accepted Admission and Anticipated Discharge Date Admission Date: October 10, 2024 Subjective Pt seen in follow up Pt seen on HD Patient denies any chest pain, dyspnea, abdominal pain, nausea, vomiting UA - repeat needed wound cultx - discussed with wound care / likely not reliable - posit. for Jamie Pt was changed to cefepime overnight d/t wound ? infection, cont. for now, will further discuss w/ ID after uculx back Pt's present at the bedside and updated. Also discussed w/ RN at the bedside. Review of Systems Review of Systems: All systems reviewed & are unremarkable except as noted in Subjective Physical Exam Physical Exam: General Appearance: Moderately built and nourished, no apparent distress Head: normocephalic, Atraumatic Eyes: normal inspection, EOMI Neck: supple Respiratory/Chest: Normal breath sounds, CTA, No accessory muscle use Cardiovascular: S1, S2, No murmur Abdomen/GI:Soft, Non tender, Bowel sounds present Extremities/Musculoskeletal: S/P toes amputation , tips of R hand 4th, 5th fingers amputation Neurologic/Psych: awake, alert, answers appropriately, speech fluent, no facial asymmetry, moves extremities Skin: normal color, warm Results & Data Results & Data Vital Signs (Past 12 Hours) Vital Signs Temp Pulse Pulse Resp BP Pulse Ox O2 Del Method 11/05/24 07:13 75 11/05/24 04:25 36.9 C 86 20 111/64 95 Room Air 11/05/24 00:43 36.9 C 88 20 129/76 94 Room Air 11/04/24 21:28 75 11/04/24 21:28 Room Air 11/04/24 20:48 36.6 C 88 20 137/80 Room Air Laboratory Results 11/04/24 11/04/24 11/04/24 Range/Units 21:04 16:51 07:44 POC Glucose 189 H 249 H 157 H (70-99) mg/dl Medications Administered Current Inpatient Medications Acetaminophen (Acetaminophen 325 Mg Tab) 650 mg PO Q4H PRN PRN Reason: Moderate Pain (Scale 4, 5, 6) Stop: 11/09/24 15:30 Last Admin: 11/03/24 09:41 Dose: 650 mg Amlodipine Besylate (Amlodipine Besylate 5 Mg Tab) 2.5 mg PO QAM [facility] Stop: 11/12/24 08:59 Last Admin: 11/04/24 13:21 Dose: Not Given Aspirin (Aspirin 81 Mg Ectab) 81 mg PO DAILY [facility] Stop: 11/14/24 08:59 Last Admin: 11/04/24 08:21 Dose: 81 mg Atenolol (Atenolol 50 Mg Tablet) 50 mg PO QAM [facility] Stop: 11/11/24 13:59 Last Admin: 11/04/24 13:21 Dose: Not Given Atorvastatin Calcium (Atorvastatin 40 Mg Tab) 80 mg PO QPM [facility] Stop: 11/09/24 20:59 Last Admin: 11/04/24 21:29 Dose: 80 mg Clopidogrel Bisulfate (Clopidogrel Bisulfate 75 Mg Tab) 75 mg PO HS [facility] Stop: 11/09/24 20:59 Last Admin: 11/04/24 21:29 Dose: 75 mg Dextrose (Dextrose 50% 50 Ml Syringe) 25 - 50 ml IV UD PRN; Protocol PRN Reason: Hypoglycemia Protocol Stop: 11/09/24 15:30 Diclofenac Sodium (Diclofenac Sod 1% Gel 100 Gm Tube) 4 gm EXT Q6H ESTHER; Protocol Stop: 11/13/24 10:29 Last Admin: 11/05/24 04:56 Dose: Not Given Docusate Sodium (Docusate Sodium 100 Mg Cap) 100 mg PO BID [facility] Stop: 11/11/24 20:59 Last Admin: 11/04/24 21:36 Dose: 100 mg Doxycycline Hyclate (Doxycycline Hyclate 100 Mg Cap) 100 mg PO BID [facility] Stop: 11/10/24 08:59 Last Admin: 11/04/24 21:29 Dose: 100 mg Gabapentin (Gabapentin 600 Mg Tab) 600 mg PO TID [facility] Stop: 11/09/24 15:30 Last Admin: 11/04/24 21:28 Dose: 600 mg Glucagon (Glucagon For Inj 1 Mg Vial) 1 mg SQ UD PRN; Protocol PRN Reason: Hypoglycemia Protocol Stop: 11/09/24 15:30 Glucose (Glucose 40% Gel 15 Gm Tube) 15 - 30 gm PO UD PRN; Protocol PRN Reason: Hypoglycemia Protocol Stop: 11/09/24 15:30 Glucose (Glucose 10 Tab/Tube) 4 - 8 tab PO UD PRN; Protocol PRN Reason: Hypoglycemia Protocol Stop: 11/09/24 15:30 Heparin Sodium (Porcine) (Heparin Sod 5,000 Unit/0.5 Ml Vial) 5,000 units SQ Q8 [facility] Stop: 11/10/24 13:59 Last Admin: 11/05/24 06:11 Dose: 5,000 units Cefazolin Sodium (Ancef 1000mg) 1,000 mg in 7.5 mls @ 2.5 mls/min IV Q24H [facility] Stop: 11/22/24 15:59 Last Admin: 11/02/24 16:32 Dose: 2.5 mls/min Cefepime HCl (Maxipime 2000mg) 1,000 mg in 10 mls @ 5 mls/min IV Q24H [facility]; Protocol Stop: 11/09/24 22:44 Last Admin: 11/04/24 23:38 Dose: 5 mls/min Insulin Aspart (Insulin Aspart Per Unit Charge) 0 units SC ACHS [facility] Stop: 11/13/24 05:59 Last Admin: 11/04/24 21:36 Dose: 2 units Insulin Glargine (Lantus Per Unit Charge) 17 units SC HS [facility] Stop: 12/04/24 20:59 Last Admin: 11/04/24 21:35 Dose: 17 units Lactobacillus Acidophilus (Advanced Probiotic 625 Mg Capsule) 1,250 mg PO DAILY [facility] Stop: 12/01/24 15:29 Last Admin: 11/04/24 08:21 Dose: 1,250 mg Lidocaine (Lidocaine 5% 1 Patch) 1 patch TD QAM [facility] Stop: 11/18/24 13:44 Last Admin: 11/04/24 08:23 Dose: 1 patch Mineral Oil (Mineral Oil Enema 133 Ml Btl) 133 ml IN DAILY PRN PRN Reason: Constipation Stop: 11/16/24 13:42 Miscellaneous (Carbohydrates For Hypoglycemia ) 15 - 30 gm PO UD PRN PRN Reason: Hypoglycemia Protocol Stop: 11/09/24 15:30 Miscellaneous (Remove Lidoderm Patch) 1 each N/A DAILY@2100 [facility] Stop: 11/18/24 20:59 Last Admin: 11/04/24 21:28 Dose: 1 each Miscellaneous Information (Pharmacy Glycemic Mgmt Consult) 1 each N/A UD PRN; Protocol PRN Reason: Consult Stop: 11/09/24 11:44 Mupirocin (Mupirocin 2% Oint 22 Gm Tube) 1 appln EXT DAILY [facility] Stop: 11/30/24 08:59 Last Admin: 11/04/24 08:23 Dose: 1 appln Ondansetron HCl (Ondansetron Inj 2 Mg/Ml 2 Ml Vial) 4 mg IV Q4H PRN PRN Reason: Nausea And Vomiting Stop: 11/09/24 15:30 Last Admin: 10/16/24 12:21 Dose: 4 mg Oxycodone HCl (Oxycodone Hcl Ir 5 Mg Tab (Immediate Release)) 5 mg PO Q8H PRN PRN Reason: Pain Stop: 11/10/24 17:29 Last Admin: 11/05/24 01:27 Dose: 5 mg Polyethylene Glycol (Polyethylene (Miralax) 17 Gm Pack) 17 gm PO DAILY PRN PRN Reason: Constipation Stop: 11/16/24 13:44 Sennosides (Senna 8.6 Mg Tab) 8.6 mg PO QAM [facility] Stop: 11/18/24 13:44 Last Admin: 11/01/24 08:20 Dose: Not Given Torsemide (Torsemide 100 Mg Tab) 100 mg PO DAILY [facility] Stop: 11/12/24 08:59 Last Admin: 11/04/24 08:22 Dose: 100 mg Vitamin D (Cholecalciferol 125 Mcg (5,000 Units) Tab) 125 mcg PO QAM [facility] Stop: 11/14/24 13:59 Last Admin: 11/04/24 08:22 Dose: 125 mcg (1) Sepsis Sepsis acute organ dysfunction status: with acute organ dysfunction Sepsis type: sepsis due to unspecified organism Severe sepsis acute organ dysfunction type: encephalopathy Severe sepsis shock status: without septic shock Qualified Code(s): A41.9 - Sepsis, unspecified organism; R65.20 - Severe sepsis without septic shock; G93.41 - Metabolic encephalopathy
[2024-11-05 14:07] LABS: Appearance Urine Turbid (Clear); Bacteria Urine Automated 1+ (None Seen); Epithelial Cell Urine Auto 0-2 /hpf (0-2); Glucose Urine UA Negative (Negative); RBC Urine Automated 0-2 /hpf (0-2); WBC Urine Automated >50 /hpf (0-5)
[2024-11-05 14:08] LABS: Cast Urine Automated 0-2 /lpf (0-2)
[2024-11-06 06:34] LABS: Hematocrit (blood only) 34.0 % (42.0-52.0); Hemoglobin 10.5 g/dl (14.0-18.0); Mean Corpuscular Hemoglobin 30.3 pg (25.0-34.0); Mean Corpuscular Volume 98.3 fL (80.0-100.0); Platelet Count 212 K/uL (130-400); RDW Standard Deviation 57.4 fL (36.4-46.3); Red Blood Count 3.46 M/uL (4.70-6.10); White Blood Count 9.50 K/ul (4.8-10.8)
[2024-11-06 07:09] LABS: Anion Gap 9.0 (3-11); Blood Urea Nitrogen 76.0 mg/dl (6-23); Calcium 8.7 mg/dl (8.6-10.3); Carbon Dioxide 29.0 mmol/L (21-32); Chloride 94.0 mmol/L (98-107); Creatinine Clr Calc Pharmacy 14.4 ml/min; Glucose 117.0 mg/dl (70-99(Fasting)); Magnesium 1.9 mg/dl (1.7-2.4); Potassium 4.4 mmol/L (3.5-5.1); Sodium 132.0 mmol/L (136-145)
--- NOTE | 2024-11-06 08:34 | Hospitalist Progress Note ---
Date of Service November 06, 2024 Assessment & Plan (1) Sepsis: (2) Diabetes mellitus: (3) Diabetic peripheral neuropathy associated with type 2 diabetes mellitus: (4) Peripheral vascular disease: (5) ESRD on peritoneal dialysis: (6) HTN (hypertension): (7) S/P cardiac pacemaker procedure: (8) History of diabetic ulcer of foot: Plan Per previous provider w/ addendum: Patient is a 64 yr male with end-stage renal disease on peritoneal dialysis, DM type II, CAD, HTN history of complete heart block, s/p pacemaker insertion, aortic valve, bicuspid, history of PE, peripheral vascular disease, s/p left great toe amputation,chronic left 2nd and 3rd toe wound, left well-healed heel ulcer, dry gangrene of right hand, who presents to the hospital with approximately 24 hours of increased confusion, lethargy, fever, chills/rigors 2/2 sepsis. Severe Sepsis, resolved MSSA bacteremia Left 2nd/3rd Digit Foot Osteomyelitis s/p amputation Right 4th/5th Digit tips Osteomyelitis s/p amputation -Foot MRI: OM of left 2nd and 3rd toes. -MRI L spine (done for concerns of reported back pain): no concerns for OM. -Admitting (10/10) Bl Cx: 4 out of 4 bottles growing MSSA -Repeat Bl cx 10/12: 1 of 4 bottle growing S. Aureus [Of note, pt underwent L toe amputation later morning of 10/12]. -Left foot operative Cx 10/12: MSSA, also growing Helococcus and Anaerococcus. -MRI Rt finger (4th and 5th) 10/13: osteomyelitis at the fourth and fifth distal phalanges. -Right ring finger operative Cx 10/14: staph and Enterobacter and cutibacterium growing, follow final results. Plan: -ID shaunna, recommends iv cefazolin daily. for 6 weeks from the date of last neg blood culture (10/14 negat. blood cultx) ~Discussed with ID again 10/19 evening regarding additional growth in operati ve cultures, no new antibiotic coverage needed, continue with prior antibiotic plan. -Due to patient's increased need pt's states she won't be able to care at home ~Plan for peritoneal dialysis catheter removal and TDC placement prior to discharge Continue management as above per prior provider Needs follow-up with podiatry for suture removal Elevate left foot at rest and wear heel offloading boots at rest --Pathology: Marked acute osteomyelitis with superficial ulceration left second toe. Bone and soft tissue with mild reactive changes. Marked acute osteomyelitis with superficial ulceration left third toe. Unremarkable bone and soft tissue. Discussed with ID on 10/28/24: Agrees to continue 6-week course of IV cefazolin given valvular heart disease. Needs PICC line PICC line consent obtained on 10/29/2024 We will hold off on placing PICC line (or possibly midline? as pt received 3 weeks of antibiotics already ) until placement arranged Continue current management Suspected UTI Urine culture inconclusive, even when repeated Repeat culture via cath - results pending Had multiple BMs reported several days ago (denies diarrhea) Probiotics were started Now constipated and stool softeners resumed Abnormal CT chest Enlarging inflammatory nodules --CT Chest:Slightly worsened centrilobular interstitial infiltrates in the left upper lobe and bilateral lower lobes. This could be due to an atypical inflammatory process such as JEM infection. Interval increase in size and number of small pulmonary nodules. These may be inflammatory but are indeterminate in nature. A follow-up chest CT is recommended in 6 months. Emphysema. Mild right hilar adenopathy, nonspecific in nature. Splenomegaly --Needs follow-up with pulmonology with repeat CT in 3-6 months as outpatient Hyponatremia Last sodium level 129 Continue fluid restriction Monitor sodium levels Appreciate nephrology input Back Pain Vitamin D deficiency -likely 2/2 deconditioning. vitamin D level low -increased vit D3 to 125 mcg daily -OOB few times a day and PT daily as able Appreciate pain management input Needs repeat vitamin D levels as outpatient Lumbar x-ray showed multilevel degenerative disc disease, previously also had L- spine MRI, as above Continue pain control as needed Elevated high sensitive troponin Likely demand ischemia in setting of sepsis -Echocardiogram obtained; reviewed ESRD on dialysis PD catheter removed, now on HD Patient nephrology input Continue dialysis per nephrology DM II -SSI HTN -c/w home atenolol, torsemide and amlodipine. Monitor blood pressure Peripheral Vascular disease Multiple amputation history -vascular surgery consult, appreciate recs Hx CVA - left posterior frontal infarction in the MCA distribution in 2008, manifested by inability to spell a common word as well as a right centrum semiovale and right occipital lobe CVA 04/2014, manifested by left arm weakness that lasted several days before resolving. 04/2014 Carotid duplex showed < 50% carotid stenosis bilaterally (report scanned in [facility]). -06/2023 carotid duplex demonstrates less than 50% carotid stenosis b/l ICAs. --Continue aspirin, Plavix, statin Hx PE in 2010, treated with Coumadin for ~3 months. -No longer on anticoagulation Blurry Vision --MRI Brain: Progressive white matter disease likely on a small vessel ischemic basis. Multiple old cerebellar lacunar infarcts, old left thalamic lacunar infarct and old left frontal infarct. No acute infarcts identified. Progressive atrophy. Mild ventricular dilatation likely secondary to volume loss. -noted post operatively -no vision deficits -CT imaging with substantial vascular disease but no clear new infarct or hemorrhage Resolved DVT Px: Heparin SQ Code Status Full Code Disposition Rehab when accepted Admission and Anticipated Discharge Date Admission Date: October 10, 2024 Subjective Pt seen in follow up Patient denies any chest pain, dyspnea, abdominal pain, nausea, vomiting UA - repeated and pending urinary retention noted today - about 600 mL wound cultx - discussed with wound care / likely not reliable - posit. for Morganella Pt was changed to cefepime overnight d/t wound ? infection, cont. for now, will further discuss w/ ID after uculx back Discussed w/ nephrology - follow UA, consider midline on DC Review of Systems Review of Systems: All systems reviewed & are unremarkable except as noted in Subjective Physical Exam Physical Exam: General Appearance: Moderately built and nourished, no apparent distress Head: normocephalic, Atraumatic Eyes: normal inspection, EOMI Neck: supple Respiratory/Chest: Normal breath sounds, CTA, No accessory muscle use Cardiovascular: S1, S2, No murmur Abdomen/GI:Soft, Non tender, Bowel sounds present Extremities/Musculoskeletal: S/P toes amputation , tips of R hand 4th, 5th fingers amputation Neurologic/Psych: awake, alert, answers appropriately, speech fluent, no facial asymmetry, moves extremities Skin: normal color, warm Results & Data Results & Data Vital Signs (Past 12 Hours) Vital Signs Temp Pulse Pulse Resp BP Pulse Ox O2 Del Method 11/06/24 08:14 36.7 C 59 L 18 113/53 L 97 Room Air 11/06/24 06:59 61 11/06/24 02:41 36.5 C 69 16 141/83 H 100 Room Air 11/05/24 23:30 36.7 C 73 16 132/79 94 Room Air Laboratory Results 11/06/24 11/06/24 11/05/24 Range/Units 07:47 06:21 20:11 WBC 9.50 (4.8-10.8) K/ul RBC 3.46 L (4.70-6.10) M/uL Hgb 10.5 L (14.0-18.0) g/dl Hct 34.0 L (42.0-52.0) % MCV 98.3 (80.0-100.0) fL MCH 30.3 (25.0-34.0) pg MCHC 30.9 L (32.0-36.0) g/dL RDW Std Deviation 57.4 H (36.4-46.3) fL RDW Coeff of Kesha 15.8 H (11.5-14.5) % Plt Count 212 (130-400) K/uL MPV 9.7 (9.4-12.4) fL Sodium 132 L (136-145) mmol/L Potassium 4.4 (3.5-5.1) mmol/L Chloride 94 L (98-107) mmol/L Carbon Dioxide 29 (21-32) mmol/L Anion Gap 9 (3-11) BUN 76 H (6-23) mg/dl Creatinine 6.45 H* (0.6-1.4) mg/dl Est Cr Clr Drug Dosing 14.4 ml/min eGFR 9.03 BUN/Creatinine Ratio 11.8 (10-20) Glucose 117 H (70-99(Fasting)) mg/dl POC Glucose 128 H 222 H (70-99) mg/dl Calcium 8.7 (8.6-10.3) mg/dl Phosphorus 4.7 (2.5-4.9) mg/dl Magnesium 1.9 (1.7-2.4) mg/dl Urine Color Urine Appearance (Clear) Urine pH (4.5-7.5) Ur Specific Jasper (1.000-1.030) Urine Protein (Negative) Urine Glucose (UA) (Negative) Urine Ketones (Negative) Urine Blood (Negative) Urine Nitrite (Negative) Urine Bilirubin (Negative) Urine Urobilinogen (Negative) Ur Leukocyte Esterase (Negative) Urine WBC (Auto) (0-5) /hpf Urine RBC (Auto) (0-2) /hpf U Hyaline Cast (Auto) (0-2) /lpf U Epithel Cells (Auto) (0-2) /hpf Urine Bacteria (Auto) (None Seen) Urine Comment 11/05/24 11/05/24 11/05/24 Range/Units 17:16 13:38 11:48 WBC (4.8-10.8) K/ul RBC (4.70-6.10) M/uL Hgb (14.0-18.0) g/dl Hct (42.0-52.0) % MCV (80.0-100.0) fL MCH (25.0-34.0) pg MCHC (32.0-36.0) g/dL RDW Std Deviation (36.4-46.3) fL RDW Coeff of Kesha (11.5-14.5) % Plt Count (130-400) K/uL MPV (9.4-12.4) fL Sodium (136-145) mmol/L Potassium (3.5-5.1) mmol/L Chloride (98-107) mmol/L Carbon Dioxide (21-32) mmol/L Anion Gap (3-11) BUN (6-23) mg/dl Creatinine (0.6-1.4) mg/dl Est Cr Clr Drug Dosing ml/min eGFR BUN/Creatinine Ratio (10-20) Glucose (70-99(Fasting)) mg/dl POC Glucose 189 H 172 H (70-99) mg/dl Calcium (8.6-10.3) mg/dl Phosphorus (2.5-4.9) mg/dl Magnesium (1.7-2.4) mg/dl Urine Color Yellow Urine Appearance Turbid A (Clear) Urine pH 7.0 (4.5-7.5) Ur Specific Jasper 1.012 (1.000-1.030) Urine Protein 2+ H (Negative) Urine Glucose (UA) Negative (Negative) Urine Ketones Negative (Negative) Urine Blood 2+ H (Negative) Urine Nitrite Negative (Negative) Urine Bilirubin Negative (Negative) Urine Urobilinogen Negative (Negative) Ur Leukocyte Esterase 3+ H (Negative) Urine WBC (Auto) >50 H (0-5) /hpf Urine RBC (Auto) 0-2 (0-2) /hpf U Hyaline Cast (Auto) 0-2 (0-2) /lpf U Epithel Cells (Auto) 0-2 (0-2) /hpf Urine Bacteria (Auto) 1+ H (None Seen) Urine Comment Medications Administered Current Inpatient Medications Acetaminophen (Acetaminophen 325 Mg Tab) 650 mg PO Q4H PRN PRN Reason: Moderate Pain (Scale 4, 5, 6) Stop: 11/09/24 15:30 Last Admin: 11/05/24 13:05 Dose: 650 mg Amlodipine Besylate (Amlodipine Besylate 5 Mg Tab) [facility] [place] Stop: 11/12/24 08:59 Last Admin: 11/05/24 08:21 Dose: 2.5 mg Aspirin (Aspirin 81 Mg Ectab) 81 mg PO DAILY [facility] Stop: 11/14/24 08:59 Last Admin: 11/05/24 08:22 Dose: 81 mg Atenolol (Atenolol 50 Mg Tablet) [facility] [place] Stop: 11/11/24 13:59 Last Admin: 11/05/24 08:21 Dose: 50 mg Atorvastatin Calcium (Atorvastatin 40 Mg Tab) 80 mg PO QPM [facility] Stop: 11/09/24 20:59 Last Admin: 11/05/24 20:32 Dose: 80 mg Clopidogrel Bisulfate (Clopidogrel Bisulfate 75 Mg Tab) 75 mg PO HS [facility] Stop: 11/09/24 20:59 Last Admin: 11/05/24 20:31 Dose: 75 mg Dextrose (Dextrose 50% 50 Ml Syringe) 25 - 50 ml IV UD PRN; Protocol PRN Reason: Hypoglycemia Protocol Stop: 11/09/24 15:30 Diclofenac Sodium (Diclofenac Sod 1% Gel 100 Gm Tube) 4 gm EXT Q6H [facility]; Protocol Stop: 11/13/24 10:29 Last Admin: 11/06/24 04:30 Dose: Not Given Docusate Sodium (Docusate Sodium 100 Mg Cap) 100 mg PO BID [facility] Stop: 11/11/24 20:59 Last Admin: 11/05/24 20:29 Dose: 100 mg Doxycycline Hyclate (Doxycycline Hyclate 100 Mg Cap) 100 mg PO BID [facility] Stop: 11/10/24 08:59 Last Admin: 11/05/24 20:32 Dose: 100 mg Gabapentin (Gabapentin 600 Mg Tab) 600 mg PO TID [facility] Stop: 11/09/24 15:30 Last Admin: 11/05/24 20:32 Dose: 600 mg Glucagon (Glucagon For Inj 1 Mg Vial) 1 mg SQ UD PRN; Protocol PRN Reason: Hypoglycemia Protocol Stop: 11/09/24 15:30 Glucose (Glucose 40% Gel 15 Gm Tube) 15 - 30 gm PO UD PRN; Protocol PRN Reason: Hypoglycemia Protocol Stop: 11/09/24 15:30 Glucose (Glucose 10 Tab/Tube) 4 - 8 tab PO UD PRN; Protocol PRN Reason: Hypoglycemia Protocol Stop: 11/09/24 15:30 Heparin Sodium (Porcine) (Heparin Sod 5,000 Unit/0.5 Ml Vial) 5,000 units SQ Q8 [facility] Stop: 11/10/24 13:59 Last Admin: 11/06/24 06:03 Dose: 5,000 units Cefazolin Sodium (Ancef 1000mg) 1,000 mg in 7.5 mls @ 2.5 mls/min IV Q24H [facility] Stop: 11/22/24 15:59 Last Admin: 11/02/24 16:32 Dose: 2.5 mls/min Cefepime HCl (Maxipime 2000mg) 1,000 mg in 10 mls @ 5 mls/min IV Q24H [facility]; Protocol Stop: 11/09/24 22:44 Last Admin: 11/05/24 22:30 Dose: 5 mls/min Insulin Aspart (Insulin Aspart Per Unit Charge) 0 units SC ACHS [facility] Stop: 11/13/24 05:59 Last Admin: 11/05/24 20:28 Dose: 3 units Insulin Glargine (Lantus Per Unit Charge) 17 units SC HS [facility] Stop: 12/04/24 20:59 Last Admin: 11/05/24 20:29 Dose: 17 units Lactobacillus Acidophilus (Advanced Probiotic 625 Mg Capsule) 1,250 mg PO DAILY [facility] Stop: 12/01/24 15:29 Last Admin: 11/05/24 08:20 Dose: 1,250 mg Lidocaine (Lidocaine 5% 1 Patch) 1 patch TD QAM [facility] Stop: 11/18/24 13:44 Last Admin: 11/05/24 08:19 Dose: 1 patch Mineral Oil (Mineral Oil Enema 133 Ml Btl) 133 ml KS DAILY PRN PRN Reason: Constipation Stop: 11/16/24 13:42 Miscellaneous (Carbohydrates For Hypoglycemia ) 15 - 30 gm PO UD PRN PRN Reason: Hypoglycemia Protocol Stop: 11/09/24 15:30 Miscellaneous (Remove Lidoderm Patch) 1 each N/A DAILY@2100 [facility] Stop: 11/18/24 20:59 Last Admin: 11/05/24 20:29 Dose: 1 each Miscellaneous Information (Pharmacy Glycemic Mgmt Consult) 1 each N/A UD PRN; Protocol PRN Reason: Consult Stop: 11/09/24 11:44 Mupirocin (Mupirocin 2% Oint 22 Gm Tube) 1 appln EXT DAILY [facility] Stop: 11/30/24 08:59 Last Admin: 11/05/24 08:23 Dose: 1 appln Ondansetron HCl (Ondansetron Inj 2 Mg/Ml 2 Ml Vial) 4 mg IV Q4H PRN PRN Reason: Nausea And Vomiting Stop: 11/09/24 15:30 Last Admin: 10/16/24 12:21 Dose: 4 mg Oxycodone HCl (Oxycodone Hcl Ir 5 Mg Tab (Immediate Release)) 5 mg PO Q8H PRN PRN Reason: Pain Stop: 11/10/24 17:29 Last Admin: 11/05/24 17:48 Dose: 5 mg Polyethylene Glycol (Polyethylene (Miralax) 17 Gm Pack) 17 gm PO DAILY PRN PRN Reason: Constipation Stop: 11/16/24 13:44 Sennosides (Senna 8.6 Mg Tab) 8.6 mg PO QAM [facility] Stop: 11/18/24 13:44 Last Admin: 11/01/24 08:20 Dose: Not Given Torsemide (Torsemide 100 Mg Tab) 100 mg PO DAILY [facility] Stop: 11/12/24 08:59 Last Admin: 11/05/24 08:20 Dose: 100 mg Vitamin D (Cholecalciferol 125 Mcg (5,000 Units) Tab) 125 mcg PO QAM [facility] Stop: 11/14/24 13:59 Last Admin: 11/05/24 08:22 Dose: 125 mcg (1) Sepsis Sepsis acute organ dysfunction status: with acute organ dysfunction Sepsis type: sepsis due to unspecified organism Severe sepsis acute organ dysfunction type: encephalopathy Severe sepsis shock status: without septic shock Qualified Code(s): A41.9 - Sepsis, unspecified organism; R65.20 - Severe sepsis without septic shock; G93.41 - Metabolic encephalopathy
--- NOTE | 2024-11-06 09:08 | Nephrology Progress Note ---
Date of Service November 06, 2024 Assessment & Plan (1) End stage renal disease on dialysis: Plan: patient does not have much residual renal function left as he makes only about 500ml of urine per day, has made as much as 1.2L on one day at least this admission Previously was on hemodialysis the PD and has now changed back to HD for foreseeable future not only for rehab but b/c of care-partner fatigue/health issues ESRD secondary to diabetes hypertension and chronic diffuse vascular disease. fluid status acceptable PD cath removed and C VAC placed on October 21. Had HD on 11/04. -Next HD Tuesday 11/07; orders in (2) Sepsis: Plan: PD fluid negative for peritonitis. No need of IP abx . ID eval done. MSSA bacteremia on 10/12 admission. ANI--negative. getting Some Amputations. Blood C/s from 10/14 so far negative. 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 he has pus like urine today. Will get cultures and sensitivity >>>for Cefazolin for 6 weeks after last positive blood culture> so last dose would be approximately 11/23/24 from last positive culture on October 12. - Per infectious disease he needs a daily antibiotic dose, therefore not able to dose antibiotics with dialysis. Strongly suggest midline rather than PICC which will be less prone to bacteremia and less liable to compromise vascular access for dialysis in this patient who is dependent on catheters for dialysis access; my understanding is that midlines need to be changed every 2 to 4 weeks (3) Urinary retention: Plan: Patient reports urinary retention this morning unsure of what amount and void he will need to be straight cathed again. States urine recently looked infected because it was dark and had a lot of sediment. First urine culture negative. Second urine culture pending. Defer to primary whether further straight cath or other intervention needed; if this is a recurrent issue may need to consider ruling out ascites on ultrasound Admission and Anticipated Discharge Date Admission Date: October 10, 2024 Subjective Awaiting SNF authorization until urine culture processes; November 03 urine culture negative; will move forward with authorizing SNF discharge to [facility] on 915 Review of Systems 2 Review of Systems: All systems reviewed & are unremarkable except as noted in Subjective Physical Exam 2 Constitutional: well developed and well nourished Eyes: EOM intact bilaterally ENMT: Mouth: + dry oral mucous membranes Respiratory: normal respiratory effort Auscultation: + diminished lung sounds Cardiovascular: Rate/Rhythm: regular rate and regular rhythm Extremities: n o edema Gastrointestinal (Abdomen): Inspection/Auscultation: normal bowel sounds and + abdominal surgical scar Percussion/Palpation: abdomen soft and + ascites (possibly); abdomen nontender Musculoskeletal: Extremities: strength 5/5 throughout Skin: no rashes, warm and dry Results & Data Vital Signs (Past 12 Hours) Vital Signs Temp Pulse Pulse Resp BP Pulse Ox O2 Del Method 11/06/24 08:14 36.7 C 59 L 18 113/53 L 97 Room Air 11/06/24 06:59 61 11/06/24 02:41 36.5 C 69 16 141/83 H 100 Room Air 11/05/24 23:30 36.7 C 73 16 132/79 94 Room Air Laboratory Results 11/06/24 06:21 11/06/24 06:21 (2) Sepsis Sepsis acute organ dysfunction status: with acute organ dysfunction Sepsis type: sepsis due to unspecified organism Severe sepsis acute organ dysfunction type: encephalopathy Severe sepsis shock status: without septic shock Qualified Code(s): A41.9 - Sepsis, unspecified organism; R65.20 - Severe sepsis without septic shock; G93.41 - Metabolic encephalopathy
[2024-11-06] MEDS: POLYETHYLENE (MIRALAX) 17 GM PACK PO PRN (13:15)
[2024-11-06] MEDS: CEFEPIME 1000MG 1,000 MG/10 ML SYR IV SCH (17:52)
[2024-11-07] MEDS ORDERED: SODIUM CHLORIDE 0.9% 1,000 ML IV PRN (07:00)
[2024-11-07 08:07] LABS: Hematocrit (blood only) 29.7 % (42.0-52.0); Hemoglobin 9.9 g/dl (14.0-18.0); Mean Corpuscular Hemoglobin 32.1 pg (25.0-34.0); Mean Corpuscular Volume 96.4 fL (80.0-100.0); Platelet Count 214 K/uL (130-400); RDW Standard Deviation 55.1 fL (36.4-46.3); Red Blood Count 3.08 M/uL (4.70-6.10); White Blood Count 9.17 K/ul (4.8-10.8)
[2024-11-07 08:37] LABS: Anion Gap 11.0 (3-11); Blood Urea Nitrogen 96.0 mg/dl (6-23); Calcium 8.5 mg/dl (8.6-10.3); Carbon Dioxide 27.0 mmol/L (21-32); Chloride 93.0 mmol/L (98-107); Creatinine Clr Calc Pharmacy 12.3 ml/min; Glucose 105.0 mg/dl (70-99(Fasting)); Magnesium 2.0 mg/dl (1.7-2.4); Potassium 4.6 mmol/L (3.5-5.1); Sodium 131.0 mmol/L (136-145)
[2024-11-07] MEDS: HEPARIN SOD (PORCINE) 1000 UNIT/ML IV ONE (09:22)
--- NOTE | 2024-11-07 10:04 | Dialysis Progress Note ---
Date of Service November 07, 2024 Assessment & Plan Admission and Anticipated Discharge Date Admission Date: October 10, 2024 Subjective Assessment & Plan (1) Sepsis: Plan: PD fluid negative for peritonitis. No need of IP abx . ID eval done. MSSA bacteremia on 10/12 admission. ANI--negative. getting Some Amputations. Blood C/s from 10/14 so far negative. 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 he has pus like urine today. Will get cultures and sensitivity as per ID patient must have daily iV abx so will need PICC line given VHD.. However as of now we have no resolution about Discharge. Once we know the discharge date can proceed with PICC line or Midline ( preferably). He has already done 5 weeks in hospital already !!!! (2) End stage renal disease on dialysis: Plan: patient does not have much residual renal function left as he makes only about 500ml of urine per day, has made as much as 1.2L on one day at least this admission Previously was on hemodialysis the [facility] and has now changed back to HD for foreseeable future not only for rehab but b/c of care-partner fatigue/health issues Will take 2 kilo off hgb is low and will give 10K procrit. ESRD secondary to diabetes hypertension and chronic diffuse vascular disease. fluid status acceptable. Was very fluid overloaded on Admission though PD cath removed and CVC placed on October 21. On MWF schedule currently. Subjective Seen during dialysis. ESRD. No SOB. still waiting for rehab placement. CVC fine. No issues with dialysis so far. Review of Systems Review of Systems: All other systems were reviewed and negative except as noted in HPI Physical Exam Physical Exam: General exam: Appears comfortable, no acute distress HEENT: Pupils are equal and reactive to light Neck: No JVD, neck is supple trachea is midline Respiratory system: Clear breath sounds bilaterally. Gastrointestinal: Abdomen is soft, non distended, non tender, bowel sounds are present CVS: Regular rate and rhythm. No murmurs, rubs or gallops Musculoskeletal: No joint or muscle tenderness Extremities: Non tender, no edema, peripheral pulses are present Neuro: Oriented, no tremors, no focal neurological deficits Skin: No rashes Results & Data Vital Signs (Past 12 Hours) Vital Signs Temp Pulse Pulse Pulse Resp BP BP 11/07/24 09:13 59 L 106/61 09/15/25 09:06 36.3 C L 63 11/07/24 08:07 36.3 C L 62 16 112/69 11/07/24 04:08 36.6 C 76 18 117/50 L 11/06/24 23:06 36.5 C 61 16 143/65 H Pulse Ox O2 Del Method 11/07/24 09:13 11/07/24 09:06 11/07/24 08:07 95 Room Air 11/07/24 04:08 96 Room Air 11/06/24 23:06 96 Room Air
[2024-11-07] MEDS: EPOETIN ALFA 10,000 UNITS/ML VIAL IV ONE (10:47)
[2024-11-07] MEDS: HEPARIN SOD (PORCINE) 1000 UNIT/ML IV SCH (10:51)
--- NOTE | 2024-11-07 15:36 | Hospitalist Progress Note ---
Date of Service November 07, 2024 Assessment & Plan (1) Sepsis: (2) Diabetes mellitus: (3) Diabetic peripheral neuropathy associated with type 2 diabetes mellitus: (4) Peripheral vascular disease: (5) ESRD on peritoneal dialysis: (6) HTN (hypertension): (7) S/P cardiac pacemaker procedure: (8) History of diabetic ulcer of foot: Plan Per previous provider w/ addendum: Patient is a 64 yr male with end-stage renal disease on peritoneal dialysis, DM type II, CAD, HTN history of complete heart block, s/p pacemaker insertion, aortic valve, bicuspid, history of PE, peripheral vascular disease, s/p left great toe amputation,chronic left 2nd and 3rd toe wound, left well-healed heel ulcer, dry gangrene of right hand, who presents to the hospital with approximately 24 hours of increased confusion, lethargy, fever, chills/rigors 2/2 sepsis. Severe Sepsis, resolved MSSA bacteremia Left 2nd/3rd Digit Foot Osteomyelitis s/p amputation Right 4th/5th Digit tips Osteomyelitis s/p amputation -Foot MRI: OM of left 2nd and 3rd toes. -MRI L spine (done for concerns of reported back pain): no concerns for OM. -Admitting (10/10) Bl Cx: 4 out of 4 bottles growing MSSA -Repeat Bl cx 10/12: 1 of 4 bottle growing S. Aureus [Of note, pt underwent L toe amputation later morning of 10/12]. -Left foot operative Cx 10/12: MSSA, also growing Helococcus and Anaerococcus. -MRI Rt finger (4th and 5th) 10/13: osteomyelitis at the fourth and fifth distal phalanges. -Right ring finger operative Cx 10/14: staph and Enterobacter and cutibacterium growing, follow final results. Plan: -ID shaunna, recommends iv cefazolin daily. for 6 weeks from the date of last neg blood culture (10/14 negat. blood cultx) ~Discussed with ID again 10/19 evening regarding additional growth in operati ve cultures, no new antibiotic coverage needed, continue with prior antibiotic plan. -Due to patient's increased need pt's states she won't be able to care at home ~Plan for peritoneal dialysis catheter removal and TDC placement prior to discharge Continue management as above per prior provider Needs follow-up with podiatry for suture removal Elevate left foot at rest and wear heel offloading boots at rest --Pathology: Marked acute osteomyelitis with superficial ulceration left second toe. Bone and soft tissue with mild reactive changes. Marked acute osteomyelitis with superficial ulceration left third toe. Unremarkable bone and soft tissue. Discussed with ID on 10/28/24: Agrees to continue 6-week course of IV cefazolin given valvular heart disease. Needs PICC line PICC line consent obtained on 10/29/2024 We will hold off on placing PICC line (or possibly midline? as pt received 3 weeks of antibiotics already ) until placement arranged Continue current management 11/[address] Jean-Baptiste (hand surgeon) - recommend to follow next week. Suspected UTI Urine culture inconclusive, even when repeated Repeat culture via cath - negative However w/ urinary retention - may need Mcnamara Had multiple BMs reported several days ago (denies diarrhea) Probiotics were started Now constipated and stool softeners resumed Abnormal CT chest Enlarging inflammatory nodules --CT Chest:Slightly worsened centrilobular interstitial infiltrates in the left upper lobe and bilateral lower lobes. This could be due to an atypical inflammatory process such as JEM infection. Interval increase in size and number of small pulmonary nodules. These may be inflammatory but are indeterminate in nature. A follow-up chest CT is recommended in 6 months. Emphysema. Mild right hilar adenopathy, nonspecific in nature. Splenomegaly --Needs follow-up with pulmonology with repeat CT in 3-6 months as outpatient Hyponatremia Last sodium level 129 Continue fluid restriction Monitor sodium levels Appreciate nephrology input Back Pain Vitamin D deficiency -likely 2/2 deconditioning. vitamin D level low -increased vit D3 to 125 mcg daily -OOB few times a day and PT daily as able Appreciate pain management input Needs repeat vitamin D levels as outpatient Lumbar x-ray showed multilevel degenerative disc disease, previously also had L- spine MRI, as above Continue pain control as needed Elevated high sensitive troponin Likely demand ischemia in setting of sepsis -Echocardiogram obtained; reviewed ESRD on dialysis PD catheter removed, now on HD Patient nephrology input Continue dialysis per nephrology DM II -SSI HTN -c/w home atenolol, torsemide and amlodipine. Monitor blood pressure Peripheral Vascular disease Multiple amputation history -vascular surgery consult, appreciate recs Hx CVA - left posterior frontal infarction in the MCA distribution in 2008, manifested by inability to spell a common word as well as a right centrum semiovale and right occipital lobe CVA 04/2014, manifested by left arm weakness that lasted several days before resolving. 04/2014 Carotid duplex showed < 50% carotid stenosis bilaterally (report scanned in [facility]). -06/2023 carotid duplex demonstrates less than 50% carotid stenosis b/l ICAs. --Continue aspirin, Plavix, statin Hx PE in 2010, treated with Coumadin for ~3 months. -No longer on anticoagulation Blurry Vision --MRI Brain: Progressive white matter disease likely on a small vessel ischemic basis. Multiple old cerebellar lacunar infarcts, old left thalamic lacunar infarct and old left frontal infarct. No acute infarcts identified. Progressive atrophy. Mild ventricular dilatation likely secondary to volume loss. -noted post operatively -no vision deficits -CT imaging with substantial vascular disease but no clear new infarct or hemorrhage Resolved DVT Px: Heparin SQ Code Status Full Code Disposition Rehab when accepted Admission and Anticipated Discharge Date Admission Date: October 10, 2024 Subjective Pt seen in follow up Patient denies any chest pain, dyspnea, abdominal pain, nausea, vomiting UA - repeated and negative urinary retention noted - pt may need Mcnamara if ongoing wound cultx - discussed with wound care / likely not reliable - posit. for Jamie - pt was on cefepime, will switch back consider midline on DC Contacted Dr. Jean-Baptiste (hand surgeon) - recommend to follow next week. Review of Systems Review of Systems: All systems reviewed & are unremarkable except as noted in Subjective Physical Exam Physical Exam: General Appearance: Moderately built and nourished, no apparent distress Head: normocephalic, Atraumatic Eyes: normal inspection, EOMI Neck: supple Respiratory/Chest: Normal breath sounds, CTA, No accessory muscle use Cardiovascular: S1, S2, No murmur Abdomen/GI:Soft, Non tender, Bowel sounds present Extremities/Musculoskeletal: S/P toes amputation , tips of R hand 4th, 5th fingers amputation Neurologic/Psych: awake, alert, answers appropriately, speech fluent, no facial asymmetry, moves extremities Skin: normal color, warm Results & Data Results & Data Vital Signs (Past 12 Hours) Vital Signs Temp Pulse Pulse Pulse Resp BP BP 11/07/24 13:32 81 20 125/79 11/07/24 13:10 36.3 C L 69 11/07/24 12:30 66 93/59 L 11/07/24 12:12 71 100/54 L 11/07/24 12:00 67 86/30 L 11/07/24 11:30 54 L 134/100 11/07/24 11:00 62 88/53 L 11/07/24 10:30 66 109/52 L 11/07/24 10:00 63 110/64 11/07/24 09:30 61 91/61 L 11/07/24 09:13 59 L 106/61 11/07/24 09:06 36.3 C L 63 11/07/24 08:07 36.3 C L 62 16 112/69 11/07/24 04:08 36.6 C 76 18 117/50 L BP Pulse Ox O2 Del Method 11/07/24 13:32 98 Room Air 11/07/24 13:10 113/62 11/07/24 12:30 11/07/24 12:12 11/07/24 12:00 11/07/24 11:30 11/07/24 11:00 11/07/24 10:30 11/07/24 10:00 11/07/24 09:30 11/07/24 09:13 11/07/24 09:06 11/07/24 08:07 95 Room Air 11/07/24 04:08 96 Room Air Laboratory Results 11/07/24 11/07/24 11/07/24 Range/Units 13:29 08:14 07:07 WBC 9.17 (4.8-10.8) K/ul RBC 3.08 L (4.70-6.10) M/uL Hgb 9.9 L (14.0-18.0) g/dl Hct 29.7 L (42.0-52.0) % MCV 96.4 (80.0-100.0) fL MCH 32.1 (25.0-34.0) pg MCHC 33.3 (32.0-36.0) g/dL RDW Std Deviation 55.1 H (36.4-46.3) fL RDW Coeff of Kesha 15.6 H (11.5-14.5) % Plt Count 214 (130-400) K/uL MPV 10.2 (9.4-12.4) fL Sodium 131 L (136-145) mmol/L Potassium 4.6 (3.5-5.1) mmol/L Chloride 93 L (98-107) mmol/L Carbon Dioxide 27 (21-32) mmol/L Anion Gap 11 (3-11) BUN 96 H D (6-23) mg/dl Creatinine 7.54 H* D (0.6-1.4) mg/dl Est Cr Clr Drug Dosing 12.3 ml/min eGFR 7.49 BUN/Creatinine Ratio 12.7 (10-20) Glucose 105 H (70-99(Fasting)) mg/dl POC Glucose 121 H 114 H (70-99) mg/dl Calcium 8.5 L (8.6-10.3) mg/dl Phosphorus 5.8 H (2.5-4.9) mg/dl Magnesium 2.0 (1.7-2.4) mg/dl 11/06/24 11/06/24 Range/Units 20:27 16:57 WBC (4.8-10.8) K/ul RBC (4.70-6.10) M/uL Hgb (14.0-18.0) g/dl Hct (42.0-52.0) % MCV (80.0-100.0) fL MCH (25.0-34.0) pg MCHC (32.0-36.0) g/dL RDW Std Deviation (36.4-46.3) fL RDW Coeff of Kesha (11.5-14.5) % Plt Count (130-400) K/uL MPV (9.4-12.4) fL Sodium (136-145) mmol/L Potassium (3.5-5.1) mmol/L Chloride (98-107) mmol/L Carbon Dioxide (21-32) mmol/L Anion Gap (3-11) BUN (6-23) mg/dl Creatinine (0.6-1.4) mg/dl Est Cr Clr Drug Dosing ml/min eGFR BUN/Creatinine Ratio (10-20) Glucose (70-99(Fasting)) mg/dl POC Glucose 155 H 130 H (70-99) mg/dl Calcium (8.6-10.3) mg/dl Phosphorus (2.5-4.9) mg/dl Magnesium (1.7-2.4) mg/dl Medications Administered Current Inpatient Medications Acetaminophen (Acetaminophen 325 Mg Tab) 650 mg PO Q4H PRN PRN Reason: Moderate Pain (Scale 4, 5, 6) Stop: 11/09/24 15:30 Last Admin: 11/07/24 14:42 Dose: 650 mg Amlodipine Besylate (Amlodipine Besylate 5 Mg Tab) 2.5 mg PO QAM [facility] Stop: 11/12/24 08:59 Last Admin: 11/07/24 13:32 Dose: Not Given Aspirin (Aspirin 81 Mg Ectab) 81 mg PO DAILY [facility] Stop: 11/14/24 08:59 Last Admin: 11/07/24 08:23 Dose: 81 mg Atenolol (Atenolol 50 Mg Tablet) 50 mg PO QAM [facility] Stop: 11/11/24 13:59 Last Admin: 11/07/24 13:32 Dose: Not Given Atorvastatin Calcium (Atorvastatin 40 Mg Tab) 80 mg PO QPM [facility] Stop: 11/09/24 20:59 Last Admin: 11/06/24 20:50 Dose: 80 mg Clopidogrel Bisulfate (Clopidogrel Bisulfate 75 Mg Tab) 75 mg PO HS [facility] Stop: 11/09/24 20:59 Last Admin: 11/06/24 20:50 Dose: 75 mg Dextrose (Dextrose 50% 50 Ml Syringe) 25 - 50 ml IV UD PRN; Protocol PRN Reason: Hypoglycemia Protocol Stop: 11/09/24 15:30 Diclofenac Sodium (Diclofenac Sod 1% Gel 100 Gm Tube) 4 gm EXT Q6H [facility]; Protocol Stop: 11/13/24 10:29 Last Admin: 11/07/24 13:31 Dose: Not Given Docusate Sodium (Docusate Sodium 100 Mg Cap) 100 mg PO BID [facility] Stop: 11/11/24 20:59 Last Admin: 11/07/24 08:29 Dose: 100 mg Doxycycline Hyclate (Doxycycline Hyclate 100 Mg Cap) 100 mg PO BID [facility] Stop: 11/10/24 08:59 Last Admin: 11/07/24 14:51 Dose: 100 mg Gabapentin (Gabapentin 600 Mg Tab) 600 mg PO TID [facility] Stop: 11/09/24 15:30 Last Admin: 11/07/24 14:53 Dose: 600 mg Glucagon (Glucagon For Inj 1 Mg Vial) 1 mg SQ UD PRN; Protocol PRN Reason: Hypoglycemia Protocol Stop: 11/09/24 15:30 Glucose (Glucose 40% Gel 15 Gm Tube) 15 - 30 gm PO UD PRN; Protocol PRN Reason: Hypoglycemia Protocol Stop: 11/09/24 15:30 Glucose (Glucose 10 Tab/Tube) 4 - 8 tab PO UD PRN; Protocol PRN Reason: Hypoglycemia Protocol Stop: 11/09/24 15:30 Heparin Sodium (Porcine) (Heparin Sod 5,000 Unit/0.5 Ml Vial) 5,000 units SQ Q8 [facility] Stop: 11/10/24 13:59 Last Admin: 11/07/24 14:44 Dose: 5,000 units Cefazolin Sodium (Ancef 1000mg) 1,000 mg in 7.5 mls @ 2.5 mls/min IV Q24H [facility] Stop: 11/22/24 15:59 Last Admin: 11/02/24 16:32 Dose: 2.5 mls/min Insulin Aspart (Insulin Aspart Per Unit Charge) 0 units SC ACHS [facility] Stop: 11/13/24 05:59 Last Admin: 11/07/24 14:46 Dose: 12 units Insulin Glargine (Lantus Per Unit Charge) 17 units SC HS [facility] Stop: 12/04/24 20:59 Last Admin: 11/06/24 20:51 Dose: 17 units Lactobacillus Acidophilus (Advanced Probiotic 625 Mg Capsule) 1,250 mg PO DAILY [facility] Stop: 12/01/24 15:29 Last Admin: 11/07/24 08:22 Dose: 1,250 mg Lidocaine (Lidocaine 5% 1 Patch) 1 patch TD QAM [facility] Stop: 11/18/24 13:44 Last Admin: 11/07/24 08:21 Dose: 1 patch Mineral Oil (Mineral Oil Enema 133 Ml Btl) 133 ml PA DAILY PRN PRN Reason: Constipation Stop: 11/16/24 13:42 Miscellaneous (Carbohydrates For Hypoglycemia ) 15 - 30 gm PO UD PRN PRN Reason: Hypoglycemia Protocol Stop: 11/09/24 15:30 Miscellaneous (Remove Lidoderm Patch) 1 each N/A DAILY@2100 [facility] Stop: 11/18/24 20:59 Last Admin: 11/06/24 20:51 Dose: 1 each Miscellaneous Information (Pharmacy Glycemic Mgmt Consult) 1 each N/A UD PRN; Protocol PRN Reason: Consult Stop: 11/09/24 11:44 Mupirocin (Mupirocin 2% Oint 22 Gm Tube) 1 appln EXT DAILY [facility] Stop: 11/30/24 08:59 Last Admin: 11/07/24 15:01 Dose: 1 appln Ondansetron HCl (Ondansetron Inj 2 Mg/Ml 2 Ml Vial) 4 mg IV Q4H PRN PRN Reason: Nausea And Vomiting Stop: 11/09/24 15:30 Last Admin: 10/16/24 12:21 Dose: 4 mg Oxycodone HCl (Oxycodone Hcl Ir 5 Mg Tab (Immediate Release)) 5 mg PO Q8H PRN PRN Reason: Pain Stop: 11/10/24 17:29 Last Admin: 11/06/24 17:08 Dose: 5 mg Polyethylene Glycol (Polyethylene (Miralax) 17 Gm Pack) 17 gm PO DAILY PRN PRN Reason: Constipation Stop: 11/16/24 13:44 Last Admin: 11/07/24 08:21 Dose: 17 gm Sennosides (Senna 8.6 Mg Tab) 8.6 mg PO QAM [facility] Stop: 11/18/24 13:44 Last Admin: 11/07/24 08:29 Dose: 8.6 mg Torsemide (Torsemide 100 Mg Tab) 100 mg PO DAILY [facility] Stop: 11/12/24 08:59 Last Admin: 11/07/24 08:22 Dose: 100 mg Vitamin D (Cholecalciferol 125 Mcg (5,000 Units) Tab) 125 mcg PO QAM [facility] Stop: 11/14/24 13:59 Last Admin: 11/07/24 08:22 Dose: 125 mcg (1) Sepsis Sepsis acute organ dysfunction status: with acute organ dysfunction Sepsis type: sepsis due to unspecified organism Severe sepsis acute organ dysfunction type: encephalopathy Severe sepsis shock status: without septic shock Qualified Code(s): A41.9 - Sepsis, unspecified organism; R65.20 - Severe sepsis without septic shock; G93.41 - Metabolic encephalopathy
--- NOTE | 2024-11-08 10:31 | Nephrology Progress Note ---
Date of Service November 08, 2024 Assessment & Plan Admission and Anticipated Discharge Date Admission Date: October 10, 2024 Subjective Assessment & Plan (1) Sepsis: Plan: PD fluid negative for peritonitis. No need of IP abx . ID eval done. MSSA bacteremia on 10/12 admission. ANI--negative. getting Some Amputations. Blood C/s from 10/14 so far negative. 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 he has pus like urine today. Will get cultures and sensitivity as per ID patient must have daily iV abx so will need PICC line given VHD.. ? Discharge. today and did have PICC Line He has already done 5 weeks in hospital already !!!! (2) End stage renal disease on dialysis: Plan: patient does not have much residual renal function left as he makes only about 500ml of urine per day, has made as much as 1.2L on one day at least this admission Previously was on hemodialysis the PD and has now changed back to HD for foreseeable future not only for rehab but b/c of care-partner fatigue/health issues ESRD secondary to diabetes hypertension and chronic diffuse vascular disease. fluid status acceptable. Was very fluid overloaded on Admission though PD cath removed and CVC placed on October 21. On MWF schedule currently. Subjective Seen for ESRD. No SOB. still waiting for rehab placement. CVC fine. No issues with dialysis so far. had PICC line now Review of Systems Review of Systems: All other systems were reviewed and negative except as noted in HPI Physical Exam Physical Exam: General exam: Appears comfortable, no acute distress HEENT: Pupils are equal and reactive to light Neck: No JVD, neck is supple trachea is midline Respiratory system: Clear breath sounds bilaterally. Gastrointestinal: Abdomen is soft, non distended, non tender, bowel sounds are present CVS: Regular rate and rhythm. No murmurs, rubs or gallops Musculoskeletal: No joint or muscle tenderness Extremities: Non tender, no edema, peripheral pulses are present Neuro: Oriented, no tremors, no focal neurological deficits Skin: No rashes Results & Data Vital Signs (Past 12 Hours) Vital Signs Temp Pulse Pulse Resp BP Pulse Ox O2 Del Method 11/08/24 10:24 Room Air 11/08/24 07:30 36.7 C 71 18 167/79 H 94 Room Air 11/08/24 05:29 71 11/08/24 03:02 36.7 C 80 18 140/51 L 94 Room Air 11/07/24 22:45 36.9 C 88 18 141/80 H 95 Room Air
--- NOTE | 2024-11-08 12:17 | Podiatry Progress Note ---
Date of Service November 08, 2024 Assessment & Plan (1) 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: (2) Chronic osteomyelitis: (3) Sepsis: (4) Peripheral vascular disease: Plan Patient was examined and evaluated. - Foot cleaned, Optifoam gauze bandage removed. - No dehiscence, drainage, or infection noted. D/C dressings/bandages - Local skin is moist from bandage occlusion; should improve with dressing removal - Ok to d/c to [facility] on our end. Will f/u outpatient as needed. Admission and Anticipated Discharge Date Admission Date: October 10, 2024 Subjective Patient seen at bedside. No new concerns. Nursing was worried there was increased drainage to the surgical site so asked us to reassess. Patient states he is being discharged today to [facility] in [place]. Review of Systems Constitutional: + fatigue and + weakness; no fever, no c hills and no sweats Eyes: no problem reported Ear, Nose, Mouth, Throat: no problem reported Respiratory: no problem reported Cardiovascular: + edema; no problem reported Gastrointestinal: no nausea, no vomiting and no problem reported Musculoskeletal: + muscle weakness; no problem reported Integumentary: no skin ulcer, no wounds and no erythema Neurologic: + loss of sensation, + numbness and + pa resthesia Psychiatric: no confusion Physical Exam Physical Exam: Lower extremity focused exam: DP/PT pulses nonpalpable. CFT brisk to the digits. Advanced trophic changes noted to b/l lower extremity. No dehiscence or drainage noted to amputation site. No open wound appreciated. Healed surgical site is slightly macerated from dressing. Constitutional: WD/WN, vitals as above + ill appearing, + morbidly obese and + obese; no acute distress Eyes: PERRL, conjunctivae normal, anicteric sclerae ENMT: external ear and nose normal, oropharynx normal Mouth: + poor dentition Neck: trachea midline, no thyromegaly normal visual inspection Respiratory: normal respiratory effort; no respiratory distress Cardiovascular: Rate/Rhythm: regular rate and regular rhythm Vessels: + posterior tibial pulses abnormal and + dorsalis pedis pulses abnormal Chest (Breasts): Chest: normal inspection of chest Gastrointestinal (Abdomen): Inspection/Auscultation: abdomen normal to inspection Percussion/Palpation: + abdomen tender and abdomen soft Musculoskeletal: no cyanosis or clubbing, extremities motor strength 5/5 Head/Neck/Chest: normocephalic and head atraumatic Extremities: extremities normal to inspection Skin: + ulcer, + wound, + erythema and + nails dystrophic Neurologic: moves all extremities, awake and + confused; + abnormal sensation to monofilament and no focal motor deficits Psychiatric: A+Ox3, euthymic affect Results & Data Results & Data Vital Signs (Past 12 Hours) Vital Signs Temp Pulse Pulse Resp BP Pulse Ox O2 Del Method 11/08/24 11:37 36.5 C 76 18 146/83 H 11/08/24 10:24 Room Air 11/08/24 07:30 36.7 C 71 18 167/79 H 94 Room Air 11/08/24 05:29 71 11/08/24 03:02 36.7 C 80 18 140/51 L 94 Room Air (1) 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 Diabetic foot ulcer location: toe Diabetes mellitus type: type 2 Laterality: left Qualified Code(s): E11.621 - Type 2 diabetes mellitus with foot ulcer; L97.524 - Non-pressure chronic ulcer of other part of left foot with necrosis of bone (3) Sepsis Sepsis acute organ dysfunction status: with acute organ dysfunction Sepsis type: sepsis due to unspecified organism Severe sepsis acute organ dysfunction type: encephalopathy Severe sepsis shock status: without septic shock Qualified Code(s): A41.9 - Sepsis, unspecified organism; R65.20 - Severe sepsis without septic shock; G93.41 - Metabolic encephalopathy
--- NOTE | 2024-11-08 12:53 | Discharge Summary ---
Date of Service November 08, 2024 Admission HPI Per Admitting Provider This is a 64-year-old male with PMHx of end-stage renal disease on peritoneal dialysis, DM type II, CAD, HTN history of complete heart block, s/p pacemaker insertion, aortic valve, bicuspid, history of PE, peripheral vascular disease, s/p left great toe amputation,chronic left 2nd and 3rd toe wound, left well- healed heel ulcer, dry gangrene of right hand, who presents to the hospital with approximately 24 hours of increased confusion, lethargy, fever, chills/rigors. Pts is present with him at bedside. He c/o back pain which started on Thursday (3 days ago), noted lower back, and uses a walker/wheelchair at baseline. On Thursday pt took wheelchair to the bathroom and then had issue standing up and slid in the bathroom where he injured the left 2nd and 3rd toes which are now bloody. Pt had issues trying to get back into the recliner. Then again yesterday (Thursday) slid out of the recliner yesterday due to increased weakness. Denies LOC, did not hit his head. Pt does not normally walk at all at baseline. Pt does home peritoneal dialysis, got out 1.6 L last evening per . He has a port which is maintained in the abdomen. He does make a small amount of urine at baseline. Pt also notes dry cough, for the past 6 months. He has occasional phlegm. N0 acute shortness of breath or chest complaints. WBC 22,000 with a left shift, BUN 50/creatinine 6.6, sodium 132, potassium 3.7, glucose elevated at 423, lactate 2.8. Respiratory biofire is negative. Admission Exam Per Admitting Provider General: awake, alert, no apparent distress, + somewhat confused, asks to help with answers Head: Normocephalic, atraumatic ENT: PERRL, EOMI, no pharyngeal exudate, mucous membranes dry Chest: Clear to auscultation, on room air, no adventitious breath sounds Cardiac: Regular rate and rhythm, + loud holosystolic murmur, no JVD, normal peripheral pulses, good capillary refill Abdominal: NABS x 4 quadrants, soft, nondistended, nontender to palpation, no rebound or guarding Extremities: Normal inspection, +2 peripheral edema, no erythema, calfs nontender to palpation , s/p great toe amputations bilaterally - he does have injuries to the left 2nd and 3rd toe which are bloody. + dry gangrene involving the Right 4th and 5th fingers. . Psych: Flat mood and affect Neuro: AAO to self, place, asks to answer questions, is slow to respond, no obvious motor deficits, speech is clear, no peripheral sensory deficits Principal Diagnosis Sepsis Bacteremia Osteomyelitis s/p amputations ESRD on HD (previously on PD) Urinary retention s/p Mcnamara Discharge Exam General Appearance: Moderately built and nourished, no apparent distress Head: normocephalic, Atraumatic Eyes: normal inspection, EOMI Neck: supple Respiratory/Chest: Normal breath sounds, CTA, No accessory muscle use Cardiovascular: S1, S2, No murmur Abdomen/GI:Soft, Non tender, Bowel sounds present Extremities/Musculoskeletal: S/P toes amputation , tips of R hand 4th, 5th fingers amputation Neurologic/Psych: awake, alert, answers appropriately, speech fluent, no facial asymmetry, moves extremities Skin: normal color, warm Discharge Data Allergies Allergy/AdvReac Type Severity Reaction Status Date / Time daptomycin Allergy Rash Verified 10/10/24 09:48 Consultations 10/10/24 10:17 ED Decision to Admit Stat 10/10/24 10:42 Consult Nephrology Routine 10/10/24 11:06 Consult Podiatry Routine 10/11/24 07:31 Consult Infectious Diseases Routine 10/11/24 10:17 Consult Cardiology Routine 10/11/24 14:33 Consult Anesthesiology Routine 10/13/24 16:10 Consult Orthopedic Surgery Routine 10/15/24 13:58 Consult Pain Management Routine 10/17/24 14:37 Consult Vascular Surgery Routine 10/21/24 14:59 Consult Neurology Routine Procedures Performed Operation Date: 10/21/24 08:00 Actual Procedures p Continuous Ambulatory Peritoneal Dialysis Catheter Removal(Not Applicable) - Steven Aquino MD s Insertion Perm Catheter - Steven Aquino MD Ordered Studies 10/10/24 11:26 CT Abd and Pelvis [CT abd pelvis IV con only] Stat IMPRESSION: 1. No acute process within the abdomen or pelvis. 2. No bowel obstruction. No bowel wall thickening. Normal appendix. Moderate amount of stool within the rectum. 3. Gas within the bladder. This could be correlated with history of recent instrumentation. 4. Trace fluid within the abdomen and pelvis, likely related to indwelling peritoneal dialysis catheter. 5. Extensive vascular calcification. 6. Mild splenomegaly. CT chest with contrast [CT chest diagnostic w con] Stat FINDINGS: A left subclavian pacer is in place. There are are median sternotomy wires and postoperative findings from bypass grafting. Extensive coronary artery calcification is noted. Heart is mildly enlarged. There is no pericardial effusion. Prominent bilateral hilar lymph nodes are likely benign. There is no pneumothorax or pleural effusion. No consolidation is present. However, there are are multifocal cluster tree-in-bud nodules throughout the lungs. These were not present on prior CT. Additional small pulmonary nodules are noted, including a defibrillator right lower lobe nodule on image 151. The nodule was not clearly present on prior CT. A few additional smaller pulmonary nodules are unchanged. Central airways are patent. Abdomen and pelvis CT will be reported separately. IMPRESSION: 1. No consolidation. Multifocal clustered tree-in-bud nodules within the lungs. These favor an age indeterminate mild infectious or inflammatory process. A follow-up CT in 3 months to ensure resolution is recommended. 2. Scattered nodules throughout the lungs, a few of which are new since prior CT. These are low suspicion but should be assessed on follow-up CT. 3. Mild cardiomegaly. Extensive coronary artery calcification. Status post median sternotomy and bypass grafting. 10/11/24 08:46 MRI Lumbar Spine [MR lumbar spine wo con] Urgent IMPRESSION: 1. Mild lumbosacral spondylosis as above with no significant acquired compromise of the central canal. See discussion for detailed level by level analysis. 2. Degenerative disc disease as above with associated endplate change. 3. No destructive bony process is seen. 4. Distended bladder with evidence of chronic outlet obstruction. 10/11/24 17:22 MR foot LT w/o con Urgent FINDINGS: This exam is mildly compromised given difficulty positioning. There are postoperative findings consistent with amputation of the first digit at the level of the distal first metatarsal. Skin defect consistent with ulcer of the left third toe is noted. There is no marrow T2 hyperintensity and T1 hypointensity within the adjacent middle and distal phalanges of the third toe consistent with osteomyelitis. In addition, there is an ulcer of the second toe with marrow T2 hyperintensity and T1 hypointensity within the distal phalanx of the second toe. No additional sites of marrow edema are identified. No fluid collection is identified on unenhanced exam. Moderate dorsal subcutaneous edema is present. There is no associated fluid collection. IMPRESSION: 1. Left second and third toe ulcers. Findings consistent with acute osteomyelitis of the middle and distal phalanges of the left third toe and the distal phalanx of the second toe. 2. Status post left first digit amputation. 10/13/24 11:49 MR hand RT wo con Routine FINDINGS: There is mild motion artifact. There is mild soft tissue edema at the hand with no abscess or hematoma seen. There is increased T2 and decreased T1 signal at the fourth and fifth distal phalanges with cortical irregularity consistent with osteomyelitis. No other evidence of osteomyelitis seen. No fracture or dislocation. IMPRESSION: Findings consistent with osteomyelitis at the fourth and fifth distal phalanges. Suggest follow-up x-ray of the hand to rule out fracture as the cause of the abnormal signal. 10/18/24 09:21 US venous duplex arm [US venous doppler UE RT] Routine 10/21/24 07:15 EV cvc insrt tunnel wo prt/maintenance and custodian supervisor Routine US EV guide vascular access Routine 10/21/24 15:02 CT angio neck with con Urgent CTA head wo/w [CT angio head wo/w] Urgent Impression: 1. Mild stenoses of the distal vertebral arteries bilaterally 2. Cerebral atrophy, chronic small vessel ischemic disease, and old infarcts 3. Sphenoid sinusitis Impression: 1. Mild stenosis of the left carotid bulb and proximal left ICA 2. Mild stenosis of the proximal right ICA 3. Mild stenosis of the distal left CCA 4. Moderate severity stenoses of the proximal ECA bilaterally 5. Severe stenosis of the origin of the left vertebral artery 6. Mild stenosis at the origin of the right vertebral artery 7. Mild stenoses of the vertebral arteries bilaterally 10/24/24 15:03 CT chest diagnostic w con Urgent Findings: There is a 4-5 mm right lower lobe larger than previous and measured 3 mm. There is a nearby new 2-3 mm nodule. There is a new 2 3 mm right upper lobe nodule. A 5 mm left upper lobe nodule appears increased in size. A 3 mm left upper lobe nodule has slightly increased in size as well. There are 2 unchanged 2 mm left upper lobe nodules. There is a 4 mm lingular nodule that appears enlarged. There is no pleural effusion or pneumothorax. There has slightly worsened multifocal areas of centrilobular interstitial infiltrate in the left upper lobe and bilateral lower lobes. There is a calcified granuloma in the right middle lobe. There is mild emphysema. There is linear atelectasis or scar in the right lower lobe There are mildly enlarged right hilar lymph nodes, measuring up to 1.5 cm. There are small subcentimeter mediastinal lymph nodes. The thoracic aorta appears unremarkable with no sign of aneurysm or dissection. There is no pericardial effusion. There is an aortic valve replacement. Postsurgical changes are seen of coronary artery bypass grafting surgery. There is a left chest wall pacemaker device The spleen is enlarged measuring 16 cm. No fracture is seen. No focal osseous lesion is evident Impression: 1. Slightly worsened centrilobular interstitial infiltrates in the left upper lobe and bilateral lower lobes. This could be due to an atypical inflammatory process such as JEM infection 2. Interval increase in size and number of small pulmonary nodules. These may be inflammatory but are indeterminate in nature. A follow-up chest CT is recommended in 6 months 3. Emphysema 4. Mild right hilar adenopathy, nonspecific in nature 5. Splenomegaly 10/25/24 15:05 MR brain wo con Urgent FINDINGS: No intra or extra-axial mass lesions are visualized. Axial diffusion-weighted images reveal no evidence of acute or subacute infarction. Mild ventricular dilatation is likely secondary to volume loss. There is an old left posterior frontal infarct. There are multiple old lacunar infarcts in the cerebellar hemispheres. There is an old left thalamic lacunar infarct. Gradient echo images reveal a punctate focus of decreased signal within the right medial parietal vertex, likely representing a tiny old hemorrhage or calcification. There is cerebellar atrophy. There is moderately extensive confluent foci of increased T2 signal within the periventricular white matter likely on a small vessel basis. IMPRESSION: 1. Progressive white matter disease likely on a small vessel ischemic basis 2. Multiple old cerebellar lacunar infarcts, old left thalamic lacunar infarct and old left frontal infarct. 3. No acute infarcts identified 4. Progressive atrophy. Mild ventricular dilatation likely secondary to volume loss Hospital Course (1) Sepsis: (2) Diabetes mellitus: (3) Diabetic peripheral neuropathy associated with type 2 diabetes mellitus: (4) Peripheral vascular disease: (5) ESRD on peritoneal dialysis: (6) HTN (hypertension): (7) S/P cardiac pacemaker procedure: (8) History of diabetic ulcer of foot: Plan Patient is a 64 yr male with end-stage renal disease on peritoneal dialysis, DM type II, CAD, HTN history of complete heart block, s/p pacemaker insertion, aortic valve, bicuspid, history of PE, peripheral vascular disease, s/p left great toe amputation,chronic left 2nd and 3rd toe wound, left well-healed heel ulcer, dry gangrene of right hand, who presents to the hospital with approximately 24 hours of increased confusion, lethargy, fever, chills/rigors 2/2 sepsis. Severe Sepsis, resolved MSSA bacteremia Left 2nd/3rd Digit Foot Osteomyelitis s/p amputation Right 4th/5th Digit tips Osteomyelitis s/p amputation -Foot MRI: OM of left 2nd and 3rd toes. -MRI L spine (done for concerns of reported back pain): no concerns for OM. -Admitting (10/10) Bl Cx: 4 out of 4 bottles growing MSSA -Repeat Bl cx 10/12: 1 of 4 bottle growing S. Aureus [Of note, pt underwent L toe amputation later morning of 10/12]. -Left foot operative Cx 10/12: MSSA, also growing Helococcus and Anaerococcus. -MRI Rt finger (4th and 5th) 10/13: osteomyelitis at the fourth and fifth distal phalanges. -Right ring finger operative Cx 10/14: staph and Enterobacter and cutibacterium growing, follow final results. Plan: -ID shaunna, recommends iv cefazolin daily. for 6 weeks from the date of last neg blood culture (10/14 negat. blood cultx, end date for abx treatment November 25, 2024) ~Discussed with ID again 10/19 evening regarding additional growth in operative cultures, no new antibiotic coverage needed, continue with prior antibiotic plan. -Due to patient's increased need pt's states she won't be able to care at home ~Plan for peritoneal dialysis catheter removal and TDC placement prior to discharge Continue management as above per prior provider Needs follow-up with podiatry for suture removal Elevate left foot at rest and wear heel offloading boots at rest --Pathology: Marked acute osteomyelitis with superficial ulceration left second toe. Bone and soft tissue with mild reactive changes. Marked acute osteomyelitis with superficial ulceration left third toe. Unremarkable bone and soft tissue. Discussed with ID on 10/28/24: Agrees to continue 6-week course of IV c efazolin given valvular heart disease. US-guided line placed on 11/08 - to finish antibiotics on November 25, 202411/[address] Jean-Baptiste (hand surgeon) - recommend to follow up next week (after pt is discharged). Suspected UTI Urine culture inconclusive, even when repeated Repeat culture via cath - negative However w/ urinary retention - now w/ Mcnamara placed - may need follow up w/ urology Abnormal CT chest Enlarging inflammatory nodules --CT Chest:Slightly worsened centrilobular interstitial infiltrates in the left upper lobe and bilateral lower lobes. This could be due to an atypical inflammatory process such as JEM infection. Interval increase in size and number of small pulmonary nodules. These may be inflammatory but are indeterminate in nature. A follow-up chest CT is recommended in 6 months. Emphysema. Mild right hilar adenopathy, nonspecific in nature. Splenomegaly --Needs follow-up with pulmonology with repeat CT in 3-6 months as outpatient Hyponatremia Last sodium level 129 Continue fluid restriction Monitor sodium levels Appreciate nephrology input Back Pain Vitamin D deficiency -likely 2/2 deconditioning. vitamin D level low -increased vit D3 to 125 mcg daily -OOB few times a day and PT daily as able Appreciate pain management input Needs repeat vitamin D levels as outpatient Lumbar x-ray showed multilevel degenerative disc disease, previously also had L- spine MRI, as above Continue pain control as needed Elevated high sensitive troponin Likely demand ischemia in setting of sepsis -Echocardiogram obtained; reviewed ESRD on dialysis PD catheter removed, now on HD Continue dialysis per nephrology DM II -SSI HTN -c/w home atenolol, torsemide and amlodipine. Monitor blood pressure Peripheral Vascular disease Multiple amputation history -vascular surgery consult, appreciate recs Hx CVA - left posterior frontal infarction in the MCA distribution in 2008, manifested by inability to spell a common word as well as a right centrum semiovale and right occipital lobe CVA 04/2014, manifested by left arm weakness that lasted several days before resolving. 04/2014 Carotid duplex showed < 50% carotid stenosis bilaterally (report scanned in [facility]). -06/2023 carotid duplex demonstrates less than 50% carotid stenosis b/l ICAs. --Continue aspirin, Plavix, statin Hx PE in 2010, treated with Coumadin for ~3 months. -No longer on anticoagulation Blurry Vision --MRI Brain: Progressive white matter disease likely on a small vessel ischemic basis. Multiple old cerebellar lacunar infarcts, old left thalamic lacunar infarct and old left frontal infarct. No acute infarcts identified. Progressive atrophy. Mild ventricular dilatation likely secondary to volume loss. -noted post operatively -no vision deficits -CT imaging with substantial vascular disease but no clear new infarct or hemorrhage Resolved Total Time Total Time Spent Total Time Spent (In Minutes): 40 Discharge Plan Discharge Items Patient Disposition: Transfer [facility] Reason For Visit: SEPSIS Discharge Diagnosis: Sepsis Bacteremia Osteomyelitis s/p amputations ESRD on HD (previously on PD) Urinary retention s/p Mcnamara Condition on Discharge: Good Activity: Per Instructions section Non-emergency contact: Primary Care Provider, Surgeon, Specialist and Miner Placer Call non-emergency contact if: you have any medication questions and your symptoms worsen Follow-up/Referrals: Seth Jasso MD [Primary Care Provider] - Diet: Carb Consistent or DM2 and Heart Healthy Fluids: 1000ml (4 cups) Addtl Attending Provider Instructions: Follow up with primary care physician, infectious disease, and nephrology. Continue your dialysis. You may need to follow up with urology for your urinary retention and Mcnamara catheter. You can follow up with podiatry as needed. Addtl Casting Supervisor Provider Instructions: Discharge instructions per [facility]: -Your fingertips were amputated to help further prevent the spread of infection -The stitches that were used to close your wounds are dissolvable -Leave the dressings in place for 2 days before changing them. You may then change them with non-adhesive dressings, such as adaptic and then gauze as needed. Wash around the wounds gently with soap/water between dressing changes. Let the water run over gently but do not completely submerge or soak. Pat to dry and then place the dressing back on -You may continue to move your fingers as much as possible and this is encouraged to help prevent them from getting stiff -Followup in the office at [facility] in 10-14 days from your surgery. Call [phone] to make or adjust your appointment -You should also followup with occupational hand therapy at [facility] after you are discharged from the hospital for range of motion exercises. Call [phone] to make or adjust your appointment Per most recent conversation - Follow up next week (after discharge) Pending Studies at Discharge: No Stand-Alone Forms: My [facility] Skilled Items Patient informed of condition?: Yes DNR: No Discharge Level of Care: Skilled Communicable Disease: No Discharge Prognosis: Stable Lines: US Guided Peripheral IV Urinary Catheter: Yes Medications and DC Order Prescriptions: New cefazolin 1 gram recon soln 1 g IV Q24H 21 Days Qty: 25 0RF clopidogrel 75 mg Tablet 75 mg PO HS Qty: 30 0RF amlodipine 5 mg Tablet 2.5 mg PO QAM Qty: 20 0RF atenolol 50 mg Tablet 50 mg PO QAM Qty: 30 0RF aspirin 81 mg Tablet,Delayed Release (Dr/Ec) 81 mg PO DAILY Qty: 30 0RF gabapentin 600 mg Tablet 600 mg PO TID Qty: 30 0RF torsemide 100 mg Tablet 100 mg PO DAILY Qty: 30 0RF docusate sodium 100 mg Capsule 100 mg PO BID Qty: 20 0RF Advanced Probiotic 625 mg (10 billion cell) Capsule 1 cap PO DAILY Qty: 14 0RF lidocaine 5 % Adhesive Patch,Medicated 1 patch transdermal QAM Qty: 15 0RF mupirocin 2 % Ointment 1 applic EXT DAILY Qty: 15 0RF diclofenac sodium [Voltaren Arthritis Pain] 1 % Gel 4 g EXT Q6H Qty: 50 0RF oxycodone 5 mg Tablet 5 mg PO Q8H PRN (Reason: pain) Qty: 10 0RF Continued atorvastatin 40 mg tablet 80 mg PO QPM atenolol 50 mg tablet 50 mg PO QAM insulin aspart U-100 [Novolog FlexPen U-100 Insulin] 100 unit/mL (3 mL) insulin pen 1 sliding scale dose subcut UD Rx Instructions: Take 5 units in the morning, 10 units at noon, and 10 units in the evening plus sliding scale 1:20 over 140 insulin glargine [Basaglar KwikPen U-100 Insulin] 100 unit/mL (3 mL) insulin pen 20 unit SUBCUT BID cholecalciferol (vitamin D3) [Vitamin D3] 25 mcg (1,000 unit) Tablet 25 mcg PO .3X WEEK Rx Instructions: mon,wed,fridays acetaminophen [Tylenol Ex Str Rapid Release] 500 mg Tablet 500 - 1,000 mg PO UD PRN (Reason: Pain) torsemide 100 mg tablet 100 mg PO DAILY Discontinued clopidogrel 75 mg tablet 75 mg PO HS aspirin 81 mg Tablet,Delayed Release (Dr/Ec) 81 mg PO DAILY gabapentin 600 mg tablet 600 mg PO TID amlodipine 5 mg tablet 2.5 mg PO QAM Patient Comments: 10/10- per spouse, patient's list has 2.5mg po daily listed. Most recent fill (09/18) is for 5 mg Discharge Orders: Discharge Order (Routine); Ordered 11/08/24 Ordered By: Triston Schaefer/Other Patient Handouts: High Blood Sugar (Hyperglycemia), Managing Type 2 Diabetes Admission Data Admit Date/Time: 10/10/24 10:42 Attending Provider: Triston Coker Admit Provider: Triston Coker Primary Care Provider: Seth Jasso Other Providers: Triston Coker; Otoniel Lorenzo; Pillo Webster; Scott Padron; Jair Myers; Seferino Dsouza I.; Nomi Manriquez II; Ev Bates; Seth Ortiz; Edgard Brunner; Dewey Luke; Neno Peoples; Pepito Jean-Baptiste; Raven Avery; Steven Aquino; Dario Campbell; [facility]; [facility]; Kashif Bustillo
== END 2024-11-08 14:30 | DRG 853 ==
LOC: ED 09:00 → 2E 10:42 → SUATTDRO 10:42 → 2E 12:07 → 2W 10-22 15:36

== ENCOUNTER 2025-01-09 07:29 | Inpatient (IN) ==
[2025-01-09 08:03] LABS: Hematocrit (blood only) 27.5 % (42.0-52.0); Hemoglobin 9.3 g/dL (14.0-18.0); Immature Granulocytes # (auto) 0.17 K/uL (0.01-0.20); Immature Granulocytes % (auto) 0.8 %; Mean Corpuscular Hemoglobin 31.8 pg (25.0-34.0); Mean Corpuscular Volume 94.2 fL (80.0-100.0); Platelet Count 277 K/uL (130-400); RDW Standard Deviation 50.5 fL (36.4-46.3); Red Blood Count 2.92 M/uL (4.70-6.10); White Blood Count 22.32 K/ul (4.8-10.8)
--- NOTE | 2025-01-09 08:10 | Emergency Department Note ---
Impression & Plan End stage renal disease on dialysis, Foot pain, left, Cellulitis of foot, left, Elevated procalcitonin ED Provider Note Provider: Pillo Beckwith MD CHIEF COMPLAINT: Left foot pain HISTORY OF PRESENT ILLNESS: Patient is a 64-year-old gentleman extensive past medical history including aortic stenosis status post valve replacement, CABG, PAD, dialysis, ESRD on hemodialysis currently, history of gangrene and bacteremia who suffered a injury to his left foot seen here last week and followed with podiatry and 5 days ago had amputation of his 4th and 5th left toes. The other toes were amputated previously. Was home with some oxycodone and Keflex but since Thursday over the last 3 days or so pain has been worsening in left foot. Denies new falls. Has not changed the bandage since discharge but denies that it soaking through. Is due for dialysis today as he goes Thursday but did not go today secondary to his pain. He is post to see podiatry tomorrow. The oxycodone he has at home has not been helping with his pain by his report. PAST MEDICAL HISTORY: As noted above MEDICATIONS: Reviewed medications SOCIAL HISTORY: Resides at home PHYSICAL EXAM: GENERAL: alert and oriented in no acute distress on stretcher Head: normocephalic and atraumatic EYES: No injection, discharge or icterus. EOMI. NECK: Trachea midline. ENT: Mucous membranes pink and moist. LUNGS: Airway patent. No retractions. Breath sounds clear with good air entry bilaterally. HEART: Regular rate and rhythm. With a right upper chest hemodialysis catheter in place. ABDOMEN: Soft and non-tender, without guarding or rebound. SKIN: Acyanotic, warm, EXTREMITIES: With some distal ulceration to the right 3rd and 4th finger that he states is unchanged from prior infection. Patient with left lower extremity foot to ankle bandaged. 1+ edema of the left lower extremity. This is taken down and there is incision across the remaining metatarsal region toward that is intact with sutures and does not appear dehisced. The very lateral aspect there is a drop of blood and a few less than centimeter area of dried blood in the bandaging. No purulence expressible some mild erythema here. NEUROLOGICAL: No focal deficits moving all extremities but is having some mild diminished sensation in the peripheral fingers and toes with his known neuropathy. No aphasia. No facial droop or slurred speech. CONTINUOUS CARDIAC MONITORING: was ordered and showed a heart rate of 80s bpm in normal sinus rhythm occasional PVC PDMP was checked without noted issue. Patient's laboratory studies and imaging reviewed. Differential includes Cellulitis, abscess, MRSA infection, DVT, necrotizing fasciitis, dermatitis, drug eruption, allergic reaction, as well as other pathologies. IMPRESSION/MEDICAL DECISION MAKING: Patient with worsening pain of the left foot. Is a dialysis patient history of bacteremia and resistant infections who had toe amputation last week. Currently on Keflex. Denies fever. Main complaint is increased pain given a bit of fentanyl here for this. Did not have dialysis today and is due for it. Denies shortness of breath or significant fluid overload. Still makes a bit of urine. Significant complicated history and includes resistant infections and diabetes. While not febrile here blood cultures and lactate obtained. Inflammatory markers are sent. Blood work with an increased leukocytosis of 22 today. Records obtained from case management of the [facility] admission and reviewed from last week show that he had a white blood cell count of 8.9 it was not elevated. X-ray and CT of the foot ordered to look for infectious/osteomyelitis changes or collections. Lactate is not elevated. Electrolytes without severe abnormality requiring emergent dialysis but creatinine is elevated. Potassium 3.9. ESR somewhat more elevated at 60. Procalcitonin returns elevated just over 2. CRP significantly elevated at 35. X-ray per radiology report shows without acute findings. CT imaging per radiology of the foot shows questions a small fluid collection at the recent surgical site. Likely hematomas are not expressing purulence. Did have recent admission for bacteremia and multiple infections over the last several months. Updated patient and patient's significant other at bedside who states that she just cannot care for him at home given his pain and weakness. Given some more fentanyl. Given his need for dialysis, significant leukocytosis with concerning infectious history, and poor pain control left foot discussed with the hospitalist for further care here. Discussed with pharmacy antibiotic empiric coverage selection and given ertapenem and vancomycin. Discussed with nephrology antibiotics as well as need for dialysis today. Hospitalist was contacted for admission. DIAGNOSIS: Left foot pain and cellulitis, ESRD on dialysis, elevated procalcitonin DISPOSITION: Hospitalist will evaluate Patient was agreeable with this plan. Past Med/Surg History Problem List Generalized weakness Status post transmetatarsal amputation of left foot Elevated procalcitonin (Acute) Cellulitis of foot, left (Acute) Foot pain, left (Acute) Laceration of toe of left foot with complication (Acute) Open fracture of left toe (Acute) Urinary retention End stage renal disease on dialysis (Acute) Chronic lumbosacral pain Gangrene of finger Osteomyelitis of finger CAD (coronary artery disease) S/P AVR (aortic valve replacement) Staphylococcus aureus bacteremia with sepsis Acute dehydration (Acute) Acute hyperglycemia (Acute) S/P cardiac pacemaker procedure ESRD on peritoneal dialysis (Acute) Sepsis (Acute) 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 (Chronic) Chronic osteomyelitis (Chronic) Surgical wound, non healing (Acute) No significant past surgical history Person under investigation for COVID-19 (Acute) Status post partial amputation of foot Peripheral vascular disease (Chronic) History of diabetic ulcer of foot Cervical radiculopathy (Acute) CVA (cerebral infarction) (Chronic) HTN (hypertension) (Chronic) Diabetes mellitus (Chronic) Tendonitis (Chronic) Cervical radiculopathy (Acute) Chest pain (Acute) Chest pain (Acute) Diabetic peripheral neuropathy associated with type 2 diabetes mellitus Hyperglycemia (Chronic) Hyperglycemic crisis in diabetes mellitus (Acute 05/22/13) Loss of sensation Upper extremity pain (Acute) Medical History PAD (peripheral artery disease) RIGHT: S/P R MISSING P[employer]ONS INVESTIGATOR endarterectomy, R SFA/pop angioplasty/stenting, and R peroneal angioplasty by Dr. Loco on 03/13/2017 S/P R PT/peroneal angioplasty and R great toe amputation 05/03/[address] Loco. S/P R great toe amputation debridement 05/06/[address] Loco. S/P R LE angiogram 05/31/[address] Enrique. S/P R SFA ALEKS-angioplasty 07/04/[address] Enrique S/P CECYIA stent, R SFA/pop lithotripsy/angioplasty (for occlusion), R PT/peroneal angioplasty by on 07/08/24. LEFT: S/P L MISSING PERSONS INVESTIGATOR/DFA Endarterectomy and L SFA stent by Dr. Loco on 09/04/14 S/P L SFA/pop angioplasty by Dr. Page on 06/26/20 S/P L EIA stenting, L pop lithotripsy, and L PT/peroneal angioplasty by Dr. Enrique on 05/31/21 S/P L hallux amputation 07/01/[address] Aguilar S/P L 1st ray amputation 08/08/[address] Aguilar. Amputation of left great toe Osteomyelitis Hallux abducto valgus, bilateral Amputated great toe of right foot Diabetes mellitus with neuropathy Diabetic peripheral neuropathy Callus Surgical History History of revascularization procedure of lower extremity Social History Smoking Status: Former smoker Tobacco Type: Cigarettes and Smokeless Tobacco (Dip or Chew) Do You Dip or Chew Tobacco: Yes; Hx Alcohol Use: Yes Alcohol type: beer Hx Substance Use: No Preferred Language: Polish Communication Ability: Effective Visual Impairment: Limited Hearing Ability: Normal Director Of Photography Required: No Beliefs That Will Affect Care: None marital status: Current Living Situation: Spouse current occupational status: employed 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 Feels Safe at Home: Yes Diet: diabetic caffeine: Yes Physical Activity Frequency: Daily Do you think of yourself as: straight/heterosexual Gender Identity: Male Assistive Devices: Walker and Wheelchair Allergies Allergies Allergy/AdvReac Type Severity Reaction Status Date / Time daptomycin Allergy Rash Verified 10/10/24 09:48 Home Meds Home Medications Medication Instructions Recorded Confirmed atenolol 50 mg tablet 50 mg PO QAM 03/07/20 01/09/25 insulin aspart U-100 100 unit/mL 1 sliding scale dose subcut UD 03/07/20 01/09/25 (3 mL) subcutaneous pen (Novolog FlexPen U-100 Insulin aspart) insulin glargine 100 unit/mL (3 30 unit subcut QAM 03/07/20 01/09/25 mL) subcutaneous pen (Basaglar KwikPen U-100 Insulin) cholecalciferol (vitamin D3) 25 25 mcg PO .3X WEEK 11/01/21 01/09/25 mcg (1,000 unit) tablet (Vitamin D3) acetaminophen 500 mg tablet 500 - 1,000 mg PO UD PRN Pain 10/10/24 01/09/25 torsemide 100 mg tablet 100 mg PO DAILY 10/10/24 01/09/25 amlodipine 5 mg tablet 5 mg PO QAM 01/09/25 01/09/25 atorvastatin 80 mg tablet 80 mg PO HS 01/09/25 01/09/25 docusate sodium 100 mg capsule 100 mg PO BID PRN Constipation 01/09/25 01/09/25 oxycodone 5 mg/5 mL oral solution 2.5 mg PO Q6H PRN Pain, Severe 01/09/25 01/09/25 Previous Rx's Medication Instructions Recorded aspirin 81 mg tablet,delayed 81 mg PO DAILY #30 tabs 11/08/24 release clopidogrel 75 mg tablet 75 mg PO HS #30 tabs 11/08/24 gabapentin 600 mg tablet 600 mg PO TID #30 tabs 11/08/24 lidocaine 5 % topical patch 1 patch transdermal QAM #15 ea 11/08/24 cephalexin 500 mg capsule 500 mg PO QID 7 days #28 caps 01/03/25 Results & Data (ED) Vital Signs Vital Signs - 24 hr 01/09/25 07:35 01/09/25 07:35 01/09/25 08:19 Temperature 37.6 C H Temperature Source Oral Pulse Rate 87 85 Pulse Rate [Apical] 83 Respiratory Rate 16 16 Respiratory Effort / Characteristics Non-Labored Spontaneous Non-Labored Spontaneous Respiratory Depth Normal Normal Respiratory Pattern Regular Regular Blood Pressure 135/70 Blood Pressure [Left Arm] 135/70 Blood Pressure Mean 91 Blood Pressure Mean [Left Arm] 91 Pulse Oximetry 96 96 Oxygen Delivery Method Room Air Room Air Sepsis Recent Fever Within 48 Hours No Sepsis New/Unexplained Change in Mental Status No Sepsis Action Taken by Nursing No Action Required 01/09/25 09:28 Temperature Temperature Source Pulse Rate Pulse Rate [Apical] 82 Respiratory Rate 16 Respiratory Effort / Characteristics Non-Labored Spontaneous Respiratory Depth Normal Respiratory Pattern Regular Blood Pressure Blood Pressure [Left Arm] 138/108 H Blood Pressure Mean Blood Pressure Mean [Left Arm] 118 Pulse Oximetry 94 Oxygen Delivery Method Room Air Sepsis Recent Fever Within 48 Hours Sepsis New/Unexplained Change in Mental Status Sepsis Action Taken by Nursing Laboratory Data 01/09/25 07:40 01/09/25 07:40 Lab Results 01/09/25 01/09/25 01/09/25 Range/Units 07:40 08:04 09:04 WBC 22.32 H (4.8-10.8) K/ul RBC 2.92 L (4.70-6.10) M/uL Hgb 9.3 L (14.0-18.0) g/dL Hct 27.5 L (42.0-52.0) % MCV 94.2 (80.0-100.0) fL MCH 31.8 (25.0-34.0) pg MCHC 33.8 (32.0-36.0) g/dL RDW Std Deviation 50.5 H (36.4-46.3) fL RDW Coeff of Kesha 14.6 H (11.5-14.5) % Plt Count 277 (130-400) K/uL MPV 10.5 (9.4-12.4) fL Immature Gran % (Auto) 0.8 % Neut % (Auto) 77.7 % Lymph % (Auto) 13.4 % [place] % (Auto) 7.6 % Eos % (Auto) 0.2 % Baso % (Auto) 0.3 % Neut # (Auto) 17.38 H (1.40-6.50) K/uL Lymph # (Auto) 2.98 (1.20-3.40) K/uL [place] # (Auto) 1.69 H (0.11-0.59) K/uL Eos # (Auto) 0.04 (0.00-0.50) K/uL Baso # (Auto) 0.06 (0.00-0.20) K/uL Immature Gran # (Auto) 0.17 (0.01-0.20) K/uL ESR 60 H (0-20) mm/hr Sodium 132 L (136-145) mmol/L Potassium 3.9 (3.5-5.1) mmol/L Chloride 91 L (98-107) mmol/L Carbon Dioxide 26 (21-32) mmol/L Anion Gap 15 H (3-11) BUN 44 H (6-23) mg/dl Creatinine 6.06 H* (0.6-1.4) mg/dl Est Cr Clr Drug Dosing Not Reportable eGFR 9.73 BUN/Creatinine Ratio 7.3 L (10-20) Glucose 222 H (70-99(Fasting)) mg/dl Lactate 0.8 (0.4-2.0) mmol/L Calcium 9.1 (8.6-10.3) mg/dl Total Bilirubin 0.7 (0.2-1.0) mg/dl AST 20 (13-39) U/L ALT 19 (7-52) U/L Alkaline Phosphatase 122 H (34-104) U/L C-Reactive Protein 35.62 H (0-0.5) mg/dl Total Protein 7.7 (6.0-8.3) gm/dl Albumin 3.7 (3.4-5.0) gm/dl Globulin 4.0 (2.5-4.0) gm/dl Albumin/Globulin Ratio 0.9 (0.9-2) Procalcitonin 2.17 H (0-0.5) ng/ml SARS-CoV-2, RNA, NAAT NEGATIVE (NEGATIVE) Administered Medications Acetaminophen (Acetaminophen 325 Mg Tab) 650 mg PO Q4H PRN PRN Reason: Pain or Fever Stop: 02/08/25 12:19 Last Admin: 01/09/25 13:45 Dose: 650 mg Documented By: VAUGHN Insulin Aspart (Insulin Aspart Per Unit Charge) 0 [facility] Stop: 02/08/25 12:19 Last Admin: 01/09/25 12:20 Dose: Not Given Documented By: VAUGHN Morphine Sulfate (Morphine Sulfate 4 Mg/Ml 1 Ml Carp\Vial) 3 mg IV Q4H PRN PRN Reason: Severe Pain (Scale 7, 8, 9,10) Stop: 01/23/25 12:19 Last Admin: 01/09/25 13:45 Dose: 3 mg Documented By: VAUGHN Discontinued Medications Fentanyl Citrate (Fentanyl Citrate Pf 100 Mcg/2 Ml Vial) 75 mcg IV NOW STA Stop: 01/09/25 07:47 Last Admin: 01/09/25 08:01 Dose: 75 mcg Documented By: JOSEFINA Fentanyl Citrate (Fentanyl Citrate Pf 100 Mcg/2 Ml Vial) 75 mcg IV NOW STA Stop: 01/09/25 09:36 Last Admin: 01/09/25 09:42 Dose: 75 mcg Documented By: JOSEFINA Heparin Sodium (Porcine) (Heparin Sod (Porcine) 1000 Unit/Ml) 1,000 units IV ONE ONE Stop: 01/09/25 11:22 Last Admin: 01/09/25 12:55 Dose: Not Given Documented By: ENRIQUE Ertapenem (Invanz 500mg) 500 mg in 5 mls @ 2 mls/min IV ONCE ONE Stop: 01/09/25 09:32 Last Admin: 01/09/25 09:43 Dose: 2 mls/min Documented By: JOSEFINA Insulin Glargine (Lantus Per Unit Charge) 15 units SQ ONE ONE Stop: 01/09/25 11:03 Last Admin: 01/09/25 11:23 Dose: 15 units Documented By: isabela Co-signed By: LAKISHA Imaging Data Radiologist's Impression: Foot CT 01/09/25 07:45 CT foot LT wo con CLINICAL HISTORY: pain, recent surgery COMPARISON STUDY: X-ray of 01/03/2025 FINDINGS: Skin olamide overlie the Achilles tendon and there is a small amount of soft tissue gas adjacent to the Achilles tendon. There is interval transmetatarsal amputation. No other fracture or dislocation seen. No evidence of active osteomyelitis seen. There is a 3 x 1 x 1 cm collection of fluid and a small amount of gas just anterior to the distal aspect of the remaining third and fourth metatarsals. There is scattered soft tissue gas anterior to the other remaining metatarsals. IMPRESSION: 1. Interval postoperative changes. 2. Nonspecific soft tissue fluid collection adjacent to the transmetatarsal amputation site. Differential diagnosis includes postoperative seroma, hematoma, and developing abscess. ACT 112: Negative or not required by law. Electronically signed by: Prabhu Cordova M.D. 01/09/2025 9:11 AM Foot X-Ray 01/09/25 07:45 XR foot LT 2V CLINICAL HISTORY: pain, recent surgery COMPARISON: 01/03/2025 FINDINGS: There is interval transmetatarsal amputation. No other fracture or dislocation seen. No evidence of osteomyelitis seen. Skin olamide are present posteriorly. There are severe atherosclerotic calcifications. IMPRESSION: No acute osseous findings. ACT 112: Negative or not required by law. Electronically signed by: Prabhu Cordova M.D. 01/09/2025 8:49 AM Discharge Plan Visit Data Chief Complaint: Foot Injury/Pain Stated Complaint: L FOOT PAIN ED Provider: Pillo Beckwith Discharge Problem: End stage renal disease on dialysis, Foot pain, left, Cellulitis of foot, left, Elevated procalcitonin Patient Disposition: Admitted As Inpatient Condition: Fair Discharge Instructions Interventions: ED Discharge Assessment Last Done: 01/09/25 13:02
[2025-01-09 08:19] LABS: Alanine Aminotransferase 19 U/L (7-52); Albumin Globulin Ratio 0.9 (0.9-2); Albumin Level 3.7 gm/dl (3.4-5.0); Alkaline Phosphatase 122 U/L (34-104); Anion Gap 15 (3-11); Bilirubin,Total 0.7 mg/dl (0.2-1.0); Blood Urea Nitrogen 44 mg/dl (6-23); Calcium 9.1 mg/dl (8.6-10.3); Carbon Dioxide 26 mmol/L (21-32); Chloride 91 mmol/L (98-107); Globulin 4.0 gm/dl (2.5-4.0); Glucose 222 mg/dl (70-99(Fasting)); Potassium 3.9 mmol/L (3.5-5.1); Sodium 132 mmol/L (136-145); Total Protein 7.7 gm/dl (6.0-8.3)
--- NOTE | 2025-01-09 08:50 | XRay Report ---
XR foot LT 2V CLINICAL HISTORY: pain, recent surgery COMPARISON: 01/03/2025 FINDINGS: There is interval transmetatarsal amputation. No other fracture or dislocation seen. No ev idence of osteomyelitis seen. Skin olamide are present posteriorly. There are severe atherosclerotic calcifications. IMPRESSION: No acute osseous findings. ACT 112: Negative or not required by law. Electronically signed by: Prabhu Cordova M.D. 01/09/2025 8:49 AM
--- NOTE | 2025-01-09 09:12 | CT Scan Report ---
CT foot LT wo con CLINICAL HISTORY: pain, recent surgery COMPARISON STUDY: X-ray of 01/03/2025 FINDINGS: Skin olamide overlie the Achilles tendon and there is a small amount of soft tissue gas adj acent to the Achilles tendon. There is interval transmetatarsal amputation. No other fracture or disl ocation seen. No evidence of active osteomyelitis seen. There is a 3 x 1 x 1 cm collection of fluid a nd a small amount of gas just anterior to the distal aspect of the remaining third and fourth metatar sals. There is scattered soft tissue gas anterior to the other remaining metatarsals. IMPRESSION: 1. Interval postoperative changes. 2. Nonspecific soft tissue fluid collection adjacent to the transmetatarsal amputation site. Rufus campa diagnosis includes postoperative seroma, hematoma, and developing abscess. ACT 112: Negative or not required by law. Electronically signed by: Prabhu Cordova M.D. 01/09/2025 9:11 AM
[2025-01-09] MEDS: ERTAPENEM 500MG 500 MG/5 ML SYR IV ONE (09:43)
--- NOTE | 2025-01-09 10:11 | History & Physical Report ---
Date of Service January 09, 2025 Assessment & Plan (1) Cellulitis of foot, left: (2) Foot pain, left: (3) Status post transmetatarsal amputation of left foot: (4) End stage renal disease on dialysis: (5) Diabetic peripheral neuropathy associated with type 2 diabetes mellitus: (6) Generalized weakness: Plan This is a 64-year-old male who has a significant past medical history of CAD status post CABG x 2, cardiac pacemaker in situ, history of bicuspid aortic valve status post aortic valve replacement, ESRD on HD, history of steal syndrome for AVF, PAD [with history of REIA stent, R SFA/pop lithotripsy/angioplasty for occlusion, R PT/peroneal angioplasty on 07/17], in sulin-dependent T2DM, diabetic neuropathy, history of CVA, history of PE who presents to the ED secondary to worsening left foot pain x 3 to 4 days. Pt underwent L TMA on 01/06/[address] Aguilar of [facility] Recently underwent left 2nd and 3rd toe amputations by Dr. Veronica Webster 2/2 chronic osteomyelitis along with amputation of tip of right finger 4/5 distal tip amputations. #S/P L TMA on 01/06 #L foot cellulitis #L foot pain #Probable Post op infection [facility] L foot CT Nonspecific soft tissue fluid collection adjacent to the transmetatarsal amputation site. Differential diagnosis includes postoperative seroma, hematoma, and developing abscess. WBC 22k, elevated ESR 60 mm/hr, CRP 35mg/dl, procal 2.17ng/ml Lactate normal, he does not meet criteria for sepsis Started on IV ertapenem and vancomycin in ED will continue, positive MRSA screen at [facility] 01/[address] Pritchett, discussed with him and he will see him later today I also reached out to Dr. Gena Aguilar, pts primary senior loan processor and updated her on his current condition, at discharge Dr. Aguilar confirms relatively normal lab studies Blood cultures obtained in ED, will also obtain urine and CXR to complete infectious work up scheduled APAP, prn Oxy IR and IV morphine for pain control wound care per podiatry #ESRD on HD Dr. Lorenzo consulted for dialysis needs He has permcath in place LACW #T2DM insulin dependent with neuropathy insulin per protocol #CAD hx of CABG #bicuspid AV s/p AVR #Cardiac pacemaker insitu #HTN continue ASA, Plavix, Statin, atenolol, amlodipine no chest pain, chronic and stable #Hx of CVA continue asa, plavix #Generalized deconditioning PT/OT consults placed will likely need rehab at discharge given decline #DVT ppx: SQ Heparin, hx of PE in 2010 tx with warfarin x 3 months FULL CODE PCP: Dr. Jasso Dispo: admit to tele, PT/OT consulted, likely will need rehab placement Pt was seen and examined in collaboration with Dr. Emery, please see addendum I spent a total of 90 minutes coordinating, documenting and providing care for this patient excluding time spent in the performance of separately billed services or time spent by another provider/QHP. History of Present Illness Chief Complaint: Worsening left foot pain x 3-4 days. Primary Care Provider: Seth Jasso MD This is a 64-year-old male who has a significant past medical history of CAD status post CABG x 2, cardiac pacemaker in situ, history of bicuspid aortic valve status post aortic valve replacement, ESRD on HD, history of steal syndrome for AVF, PAD [with history of REIA stent, R SFA/pop lithotripsy/an gioplasty for occlusion, R PT/peroneal angioplasty on 07/17], insulin-dependent T2DM, diabetic neuropathy, history of CVA, history of PE who presents to the ED secondary to worsening left foot pain x 3 to 4 days. Of significance patient was recently hospitalized at [facility] from 01/04 to 01/07 due to injuring his left foot. This is the site of previous amputations in October where he had digits 2 and 3 removed from left foot as well as partial amputation of right 4th and 5th fingers due to dry gangrene. He was seen and evaluated by his primary senior loan processor Dr. Aguilar and underwent L TMA on 01/06. Again patient recently in October 2024 with severe sepsis secondary to left foot osteomyelitis, MSSA bacteremia in which she was discharged on 6 weeks of IV cefazolin. He presents with his at bedside who also helps eliciting history. Patient states from [facility] his left foot pain has been worsening. He feels he was discharged too early. He was prescribed Tylenol as well as oral liquid oxycodone with minimal relief. He denies any documented fever but has felt sweaty. He denies any chills, lightheadedness, headache, dizziness, chest pain, shortness of breath, cough, URI symptoms, nausea, vomiting, abdominal pain. reports he has been burning pain with urination for approximately 1 month and is scheduled to see urology for this. He otherwise denies any further UTI symptoms or diarrhea. For the last week he has been on oral Keflex which was prescribed at the [facility] ER on 01/03 prior to his admission to [facility]. He has been taking his medications. reports prior to most recent hospitalization he was able to assist with getting out of bed to a chair, but since discharge she is unable to get him out of bed. His appetite has otherwise been poor due to not feeling like eating. He also complains of early satiety.In ED patient had a significant elevated white blood cell count at 22,000, H&H stable at 9.3 and 27.5, ESR elevated at 60, CRP 35.62, lactate 0.8, procalcitonin elevated at 2.17, BUN/creatinine elevated 44 and 6.06. Discussed with ED provider. ED provider spoke with pharmacist given patient's recent abnormal cultures and it was decided to initiate patient on IV ertapenem and vancomycin. Left foot CT was performed concerning for postoperative changes including seroma or possible developing abscess. Allergies Allergy/AdvReac Type Severity Reaction Status Date / Time daptomycin Allergy Rash Verified 10/10/24 09:48 Home Medications Medication Instructions Recorded Confirmed Type atenolol 50 mg tablet 50 mg PO QAM 03/07/20 01/09/25 History insulin aspart U-100 100 unit/mL 1 sliding scale dose subcut UD 03/07/20 01/09/25 History (3 mL) subcutaneous pen (Novolog FlexPen U-100 Insulin aspart) insulin glargine 100 unit/mL (3 30 unit subcut QAM 03/07/20 01/09/25 History mL) subcutaneous pen (Basaglar KwikPen U-100 Insulin) cholecalciferol (vitamin D3) 25 25 mcg PO .3X WEEK 11/01/21 01/09/25 History mcg (1,000 unit) tablet (Vitamin D3) acetaminophen 500 mg tablet 500 - 1,000 mg PO UD PRN Pain 10/10/24 01/09/25 History torsemide 100 mg tablet 100 mg PO DAILY 10/10/24 01/09/25 History aspirin 81 mg tablet,delayed 81 mg PO DAILY #30 tabs 11/08/24 01/09/25 Rx release clopidogrel 75 mg tablet 75 mg PO HS #30 tabs 11/08/24 01/09/25 Rx gabapentin 600 mg tablet 600 mg PO TID #30 tabs 11/08/24 01/09/25 Rx lidocaine 5 % topical patch 1 patch transdermal QAM #15 ea 11/08/24 01/09/25 Rx cephalexin 500 mg capsule 500 mg PO QID 7 days #28 caps 01/03/25 01/09/25 Rx amlodipine 5 mg tablet 5 mg PO QAM 01/09/25 01/09/25 History atorvastatin 80 mg tablet 80 mg PO HS 01/09/25 01/09/25 History docusate sodium 100 mg capsule 100 mg PO BID PRN Constipation 01/09/25 01/09/25 History oxycodone 5 mg/5 mL oral solution 2.5 mg PO Q6H PRN Pain, Severe 01/09/25 01/09/25 History Past Med/Surg History Problem List (Updated 01/09/25 @ 11:47 by Viky Suazo PA-C) Generalized weakness Status post transmetatarsal amputation of left foot Elevated procalcitonin (Acute) Cellulitis of foot, left (Acute) Foot pain, left (Acute) Laceration of toe of left foot with complication (Acute) Open fracture of left toe (Acute) Urinary retention End stage renal disease on dialysis (Acute) Chronic lumbosacral pain Gangrene of finger Osteomyelitis of finger CAD (coronary artery disease) S/P AVR (aortic valve replacement) Staphylococcus aureus bacteremia with sepsis Acute dehydration (Acute) Acute hyperglycemia (Acute) S/P cardiac pacemaker procedure ESRD on peritoneal dialysis (Acute) Sepsis (Acute) 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 (Chronic) Chronic osteomyelitis (Chronic) Surgical wound, non healing (Acute) No significant past surgical history Person under investigation for COVID-19 (Acute) Status post partial amputation of foot Peripheral vascular disease (Chronic) History of diabetic ulcer of foot Cervical radiculopathy (Acute) CVA (cerebral infarction) (Chronic) HTN (hypertension) (Chronic) Diabetes mellitus (Chronic) Tendonitis (Chronic) Cervical radiculopathy (Acute) Chest pain (Acute) Chest pain (Acute) Diabetic peripheral neuropathy associated with type 2 diabetes mellitus Hyperglycemia (Chronic) Hyperglycemic crisis in diabetes mellitus (Acute 05/22/13) Loss of sensation Upper extremity pain (Acute) Medical History (Updated 01/09/25 @ 11:47 by Viky Suazo PA-C) PAD (peripheral artery disease) RIGHT: S/P R PRIZE FIGHTER endarterectomy, R SFA/pop angioplasty/stenting, and R peroneal angioplasty by Dr. Loco on 03/13/2017 S/P R PT/peroneal angioplasty and R great toe amputation 05/03/[address] Loco. S/P R great toe amputation debridement 05/06/[address] Loco. S/P R LE angiogram 05/31/[address] Enrique. S/P R SFA ALEKS-angioplasty 07/04/[address] Enrique S/P REIA stent, R SFA/pop lithotripsy/angioplasty (for occlusion), R PT/peroneal angioplasty by on 07/08/24. LEFT: S/P L PRIZE FIGHTER/DFA Endarterectomy and L SFA stent by Dr. Loco on 09/04/14 S/P L SFA/pop angioplasty by Dr. Page on 06/26/20 S/P L EIA stenting, L pop lithotripsy, and L PT/peroneal angioplasty by Dr. Enrique on 05/31/21 S/P L hallux amputation 07/01/[address] Aguilar S/P L 1st ray amputation 08/08/[address] Aguilar. Amputation of left great toe Osteomyelitis Hallux abducto valgus, bilateral Amputated great toe of right foot Diabetes mellitus with neuropathy Diabetic peripheral neuropathy Callus Surgical History History of revascularization procedure of lower extremity Social History Smoking Status: Former smoker Tobacco Type: Cigarettes and Smokeless Tobacco (Dip or Chew) Do You Dip or Chew Tobacco: Yes; Hx Alcohol Use: Yes Alcohol type: beer Hx Substance Use: No Preferred Language: Portuguese Communication Ability: Effective Visual Impairment: Limited Hearing Ability: Normal Pants Presser Required: No Beliefs That Will Affect Care: None marital status: Current Living Situation: Spouse current occupational status: employed 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 Feels Safe at Home: Yes Diet: diabetic caffeine: Yes Physical Activity Frequency: Daily Do you think of yourself as: straight/heterosexual Gender Identity: Male Assistive Devices: Walker and Wheelchair Review of Systems Review of Systems: All systems reviewed & are unremarkable except as noted in HPI & below Physical Exam Physical Exam: Constitutional: chronically ill appearing male, nontoxic appearing, WD/WN, vitals as above, NAD, sitting up in bed, poor bed mobility, conversing easily Head: Normocephalic, Atraumatic Eyes: conjunctivae normal, anicteric sclerae ENMT: external ear and nose normal, oropharynx dry membranes Neck: trachea midline, no thyromegaly normal visual inspection Respiratory: CTAB, decreasing BS at bases due to poor effort, no W/R/R, normal inspection, no accessory muscle use Cardiovascular: RRR, no murmur, no edema Chest: R ACW perm cath Abdomen: S, NT, ND, +BS x 4 Musculoskeletal: no cyanosis or clubbing, L TMA surgical site well approximated with blood drainage out of lateral incision, dorsal aspect of L foot is red/warm, no purulent drainage, mild pedal edema. R finger amputations noted Skin: warm and dry mild turgor Neurologic: no face palsy, no dysarthria CN's II-XI intact bilaterally and moves all extremities Psychiatric: A+Ox3 with mild confusion, euthymic affect Results & Data Results & Data Vital Signs (Past 12 Hours) Vital Signs Temp Pulse Pulse Resp BP BP Pulse Ox 01/09/25 09:28 82 16 138/108 H 94 01/09/25 08:19 85 01/09/25 07:35 83 16 135/70 96 01/09/25 07:35 37.6 C H 87 16 135/70 96 O2 Del Method 01/09/25 09:28 Room Air 01/09/25 08:19 01/09/25 07:35 Room Air 01/09/25 07:35 Room Air Laboratory Results I have independently reviewed and interpreted patient's admitting labs including CBC, CMP, procal, esr, crp, covid Diagnostic Findings Foot CT 01/09/25 07:45 CT foot LT wo con CLINICAL HISTORY: pain, recent surgery COMPARISON STUDY: X-ray of 01/03/2025 FINDINGS: Skin olamide overlie the Achilles tendon and there is a small amount of soft tissue gas adjacent to the Achilles tendon. There is interval transmetatarsal amputation. No other fracture or dislocation seen. No evidence of active osteomyelitis seen. There is a 3 x 1 x 1 cm collection of fluid and a small amount of gas just anterior to the distal aspect of the remaining third and fourth metatarsals. There is scattered soft tissue gas anterior to the other remaining metatarsals. IMPRESSION: 1. Interval postoperative changes. 2. Nonspecific soft tissue fluid collection adjacent to the transmetatarsal amputation site. Differential diagnosis includes postoperative seroma, hematoma, and developing abscess. ACT 112: Negative or not required by law. Electronically signed by: Prabhu Cordova M.D. 01/09/2025 9:11 AM Foot X-Ray 01/09/25 07:45 XR foot LT 2V CLINICAL HISTORY: pain, recent surgery COMPARISON: 01/03/2025 FINDINGS: There is interval transmetatarsal amputation. No other fracture or dislocation seen. No evidence of osteomyelitis seen. Skin olamide are present posteriorly. There are severe atherosclerotic calcifications. IMPRESSION: No acute osseous findings. ACT 112: Negative or not required by law. Electronically signed by: Prabhu Cordova M.D. 01/09/2025 8:49 AM Medications Administered Medication List Discontinued Medications Fentanyl Citrate (Fentanyl Citrate Pf 100 Mcg/2 Ml Vial) 75 mcg IV NOW STA Stop: 01/09/25 07:47 Last Admin: 01/09/25 08:01 Dose: 75 mcg Documented By: JOSEFINA Fentanyl Citrate (Fentanyl Citrate Pf 100 Mcg/2 Ml Vial) 75 mcg IV NOW STA Stop: 01/09/25 09:36 Last Admin: 01/09/25 09:42 Dose: 75 mcg Documented By: JOSEFINA Ertapenem (Invanz 500mg) 500 mg in 5 mls @ 2 mls/min IV ONCE ONE Stop: 01/09/25 09:32 Last Admin: 01/09/25 09:43 Dose: 2 mls/min Documented By: JOSEFINA COVID-19 Results Results COVID-19 Adm Lab Results: RBC 2.92 M/uL (4.70-6.10) L 01/09/25 WBC 22.32 K/ul (4.8-10.8) H 01/09/25 Hgb 9.3 g/dL (14.0-18.0) L 01/09/25 Hct 27.5 % (42.0-52.0) L 01/09/25 Plt Count 277 K/uL (130-400) 01/09/25 Neutrophils (%) (Auto) 77.7 % 01/09/25 Lymphocytes (%) (Auto) 13.4 % 01/09/25 Monocytes # (Auto) 1.69 K/uL (0.11-0.59) H 01/09/25 Eosinophils # (Auto) 0.04 K/uL (0.00-0.50) 01/09/25 Immature Granulocyte % (Auto) 0.8 % 01/09/25 Neutrophils # (Auto) 17.38 K/uL (1.40-6.50) H 01/09/25 Lymphocytes # (Auto) 2.98 K/uL (1.20-3.40) 01/09/25 Monocytes # (Auto) 1.69 K/uL (0.11-0.59) H 01/09/25 Eosinophils # (Auto) 0.04 K/uL (0.00-0.50) 01/09/25 Basophils # (Auto) 0.06 K/uL (0.00-0.20) 01/09/25 Immature Granulocyte # (Auto) 0.17 K/uL (0.01-0.20) 5 Na 132 mmol/L (136-145) L 01/09/25 K 3.9 mmol/L (3.5-5.1) 01/09/25 Cl 91 mmol/L (98-107) L 01/09/25 CO2 26 mmol/L (21-32) 01/09/25 Anion Gap 15 (3-11) H 01/09/25 BUN 44 mg/dl (6-23) H 01/09/25 Creatinine 6.06 mg/dl (0.6-1.4) H* 01/09/25 BUN/Creatinine Ratio 7.3 (10-20) L 01/09/25 Glucose Level 222 mg/dl (70-99(Fasting)) H 01/09/25 Ca 9.1 mg/dl (8.6-10.3) 01/09/25 Total Bilirubin 0.7 mg/dl (0.2-1.0) 01/09/25 AST/SGOT 20 U/L (13-39) 01/09/25 ALT/SGPT 19 U/L (7-52) 01/09/25 Alkaline Phosphatase 122 U/L (34-104) H 01/09/25 Total Protein 7.7 gm/dl (6.0-8.3) 01/09/25 Albumin 3.7 gm/dl (3.4-5.0) 01/09/25 Globulin 4.0 gm/dl (2.5-4.0) 01/09/25 Albumin/Globulin Ratio 0.9 (0.9-2) 01/09/25 CRP 35.62 mg/dl (0-0.5) H 01/09/25 Procalcitonin 2.17 ng/ml (0-0.5) H 01/09/25 SARS-CoV-2, RNA, NAAT NEGATIVE (NEGATIVE) 01/09/25 Chest X-Ray 01/09/25 Code Status & VTE Plan Code Status FULL CODE VTE Prophylaxis Plan VTE Prophylaxis will be ordered: Yes Supervising Physician Co-Signing Physician Notes 64-year-old male with extensive cardiac and vascular histories, diabetes c/b polyneuropathy presents to the ED with worsening left foot pain for last few days associated with intermittent confusion [per ], poor appetite, increasing left foot pain. Patient also reports some sweating but denies fever/nausea/vomiting/chills. Patient recently underwent left TMA second week of December at [facility]. Patient reports with increasing pain in the left foot. CT scan finding noted, concern for abscess or postoperative change. Increasing erythema in the left foot concerning for cellulitis. Will continue with antibiotic, consult podiatry. Consult nephrology for ESRD on HD. follow blood culture On exam: Patient appears chronically ill, does not look toxic. Left TMA surgical site with surrounding erythema/swelling, blood drainage out of lateral incision. No fluctuance could be appreciated. Rest of the examination as above. Total time spent independently: 24 minutes. I have seen and examined the patient and have discussed the case with the provider above. I agree with the assessment and plan as stated.
[2025-01-09] MEDS ORDERED: VANCOMYCIN CONSULT ACTIVE PRN (10:51)
[2025-01-09] MEDS ORDERED: GLUCAGON FOR INJ 1 MG VIAL SQ PRN ×2 (11:15→12:20)
[2025-01-09] MEDS ORDERED: CARBOHYDRATES FOR HYPOGLYCEMIA PO PRN ×2 (11:15→12:20)
[2025-01-09] MEDS ORDERED: GLUCOSE 40% GEL 15 GM TUBE PO PRN ×2 (11:15→12:20)
[2025-01-09] MEDS ORDERED: DEXTROSE 50% 50 ML SYRINGE IV PRN ×2 (11:15→12:20)
[2025-01-09] MEDS ORDERED: GLUCOSE 10 TAB/TUBE PO PRN ×2 (11:15→12:20)
[2025-01-09] MEDS ORDERED: SODIUM CHLORIDE 0.9% 1,000 ML IV PRN (11:21)
--- NOTE | 2025-01-09 11:21 | XRay Report ---
XR chest 1V portable CLINICAL HISTORY: concern for infection, recent hospitalization COMPARISON STUDY: Chest radiograph October 23, 2024. Chest CT October 24, 2024. FINDINGS: Median sternotomy wires, left subclavian pacer and dual lumen right internal jugular centra l venous catheter remain in place. There is a trace left pleural effusion. There is no pneumothorax. Linear right infrahilar and perihilar densities favor atelectasis or scarring. Cardiomegaly is unchan ged. There is no radiographic evidence for pulmonary edema. Mild left lower lung interstitial thicken ing is unchanged. IMPRESSION: 1. Cardiomegaly without evidence for pulmonary edema. Trace left pleural effusion. 2. Mild left lower lung interstitial thickening, similar to prior exam. 3. No definite consolidation to suggest pneumonia. ACT 112: Negative or not required by law. Electronically signed by: Tyrone Pearson M.D. 01/09/2025 11:20 AM
[2025-01-09] MEDS: LANTUS PER UNIT CHARGE SQ ONE (11:23)
--- NOTE | 2025-01-09 11:37 | Podiatry Consultation ---
Date of Consultation January 09, 2025 Assessment & Plan (1) Status post transmetatarsal amputation of left foot: (2) Cellulitis of foot, left: (3) Foot pain, left: (4) Surgical wound, non healing: (5) Abscess of left foot: (6) PVD (peripheral vascular disease): (7) Diabetic peripheral neuropathy: (8) Diabetes mellitus with neuropathy: Plan -All notes, labs, and imaging reviewed -Cultures pending and deep cultures will be taken intra-op -CT: 1. Interval postoperative changes. 2. Nonspecific soft tissue fluid collection adjacent to the transmetatarsal amputation site. Differential diagnosis includes postoperative seroma, hematoma, and developing abscess. -Dressing: xeroform and DSD for now. Will change dressing post-op -No recent vascular studies noted. Will obtain new vascular studies and will review findings. -Infectious disease consulted -Scheduled for left foot incision and drainage 01/10/25 -Patient to be NPO midnight prior to procedure. History of Present Illness Reason for Consultation: Left foot infection/abscess, S/P TMA History of Present Illness Patient 64-year-old male who has a significant past medical history of CAD status post CABG x 2, cardiac pacemaker in situ, history of bicuspid aortic valve status post aortic valve replacement, ESRD on HD, history of steal syndrome for AVF, PAD [with history of REIA stent, R SFA/pop lithotripsy/angioplasty for occlusion, R PT/peroneal angioplasty on 07/17], insulin-dependent T2DM, diabetic neuropathy, history of CVA, history of PE who presented to the ED secondary to worsening left foot pain for about 3 to 4 days. Patient was recently hospitalized at [facility] from 01/04 to 01/07 due to injuring his left foot. This is the site of previous amputations in October where he had digits 2 and 3 removed from left foot as well as partial amputation of right 4th and 5th fingers due to dry gangrene. He was seen and evaluated by his primary beam dyer Dr. Aguilar and underwent L TMA on 01/06. Again patient recently in October 2024 with severe sepsis secondary to left foot osteomyelitis, MSSA bacteremia in which she was discharged on 6 weeks of IV cefazolin. Podiatry was consulted for possible abscess and left foot infection. CT scan was ordered which showed fluid collection in the left foot. Extensive discussion was had with the patient and patient does understand that he will need to undergo an incision and drainage of the left foot. All questions were answered and the risks and benefits of the procedure were discussed. -Scheduled for left foot incision and drainage 01/10/25 -Patient to be NPO midnight prior to procedure. Allergies Allergy/AdvReac Type Severity Reaction Status Date / Time daptomycin Allergy Rash Verified 10/10/24 09:48 Home Medications Medication Instructions Recorded Confirmed Type atenolol 50 mg tablet 50 mg PO QAM 03/07/20 01/09/25 History insulin aspart U-100 100 unit/mL 1 sliding scale dose subcut UD 03/07/20 01/09/25 History (3 mL) subcutaneous pen (Novolog FlexPen U-100 Insulin aspart) insulin glargine 100 unit/mL (3 30 unit subcut QAM 03/07/20 01/09/25 History mL) subcutaneous pen (Basaglar KwikPen U-100 Insulin) cholecalciferol (vitamin D3) 25 25 mcg PO .3X WEEK 11/01/21 01/09/25 History mcg (1,000 unit) tablet (Vitamin D3) acetaminophen 500 mg tablet 500 - 1,000 mg PO UD PRN Pain 10/10/24 01/09/25 Hist ory torsemide 100 mg tablet 100 mg PO DAILY 10/10/24 01/09/25 History aspirin 81 mg tablet,delayed 81 mg PO DAILY #30 tabs 11/08/24 01/09/25 Rx release clopidogrel 75 mg tablet 75 mg PO HS #30 tabs 11/08/24 01/09/25 Rx gabapentin 600 mg tablet 600 mg PO TID #30 tabs 11/08/24 01/09/25 Rx lidocaine 5 % topical patch 1 patch transdermal QAM #15 ea 11/08/24 01/09/25 Rx cephalexin 500 mg capsule 500 mg PO QID 7 days #28 caps 01/03/25 01/09/25 Rx amlodipine 5 mg tablet 5 mg PO QAM 01/09/25 01/09/25 History atorvastatin 80 mg tablet 80 mg PO HS 01/09/25 01/09/25 History docusate sodium 100 mg capsule 100 mg PO BID PRN Constipation 01/09/25 01/09/25 History oxycodone 5 mg/5 mL oral solution 2.5 mg PO Q6H PRN Pain, Severe 01/09/25 01/09/25 History Patient History Medical History PAD (peripheral artery disease) RIGHT: S/P R ARTISTIC DIRECTOR endarterectomy, R SFA/pop angioplasty/stenting, and R peroneal angioplasty by Dr. Loco on 03/13/2017 S/P R PT/peroneal angioplasty and R great toe amputation 05/03/[address] Loco. S/P R great toe amputation debridement 05/06/[address] Loco. S/P R LE angiogram 05/31/[address] Enrique. S/P R SFA ALEKS-angioplasty 07/04/[address] Enrique S/P REIA stent, R SFA/pop lithotripsy/angioplasty (for occlusion), R PT/peroneal angioplasty by on 07/08/24. LEFT: S/P L ARTISTIC DIRECTOR/DFA Endarterectomy and L SFA stent by Dr. Loco on 09/04/14 S/P L SFA/pop angioplasty by Dr. Page on 06/26/20 S/P L EIA stenting, L pop lithotripsy, and L PT/peroneal angioplasty by Dr. Enrique on 05/31/21 S/P L hallux amputation 07/01/[address] Aguilar S/P L 1st ray amputation 08/08/[address] Aguilar. Amputation of left great toe Osteomyelitis Hallux abducto valgus, bilateral Amputated great toe of right foot Diabetes mellitus with neuropathy Diabetic peripheral neuropathy Callus Surgical History History of revascularization procedure of lower extremity Social History Smoking Status: Former smoker Tobacco Type: Cigarettes and Smokeless Tobacco (Dip or Chew) Do You Dip or Chew Tobacco: Yes; Hx Alcohol Use: Yes Alcohol type: beer Hx Substance Use: No Preferred Language: Malay Communication Ability: Effective Visual Impairment: Limited Hearing Ability: Normal Deputy Fire Chief Required: No Beliefs That Will Affect Care: None marital status: Current Living Situation: Spouse current occupational status: employed 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 Skin: Surgical TMA incision noted to the left foot. Sutures are intact. Pain to palpation, erythema, edema and drainage noted to the lateral left foot. Surgical olamide noted to the posterior leg at the level of the Achilles tendon. Fluctuance noted to the lateral foot. Neurologic: Protective sensation and light touch sensation diminished today. Results & Data Vital Signs (Past 12 Hours) Vital Signs Temp Pulse Pulse Resp BP BP Pulse Ox 01/09/25 11:00 78 18 159/82 H 93 01/09/25 09:28 82 16 138/108 H 94 01/09/25 08:19 85 01/09/25 07:35 83 16 135/70 96 01/09/25 07:35 37.6 C H 87 16 135/70 96 O2 Del Method 01/09/25 11:00 Room Air 01/09/25 09:28 Room Air 01/09/25 08:19 01/09/25 07:35 Room Air 01/09/25 07:35 Room Air
[2025-01-09] MEDS ORDERED: ONDANSETRON INJ 2 MG/ML 2 ML VIAL IV PRN (12:20)
[2025-01-09] MEDS: INSULIN ASPART PER UNIT CHARGE SC SCH (12:20)
[2025-01-09] MEDS: HEPARIN SOD (PORCINE) 1000 UNIT/ML IV ONE (12:55)
--- NOTE | 2025-01-09 13:07 | Nephrology Consultation ---
Date of Consultation January 09, 2025 Assessment & Plan (1) End stage renal disease on dialysis: ESRD on hemodialysis Thursday. At this time no evidence of fluid overload and no electrolyte issues in fact he has not been eating and drinking for many days now and as a result may even be somewhat volume depleted. potassium is also somewhat low so will do 3 K bath. will remove only 1 kilos hemoglobin is low and will be giving TRELL Procrit 4000 units (2) Osteomyelitis of finger: does have elevated white count. On antibiotics. (3) Gangrene of finger: patient with extensive issues related with osteomyelitis infection as well as gangrene of finger and toes requiring extensive surgical intervention in the recent past as well as antibiotic therapy. defer to primary team. can have vancomycin in the Emergency Department and then have a loading dose again after dialysis. further antibiotics choice will be as per primary team and possibly Infectious Disease as patient is quite complicated Plan Time spent 49 minutes History of Present Illness Reason for Consultation: ESRD on dialysis admitted with infection of the foot Attending Physician: Alexia Emery MD History of Present Illness 64-year-old male with ESRD on hemodialysis Thursday CAD status post CABG x 2, cardiac pacemaker in situ, history of bicuspid aortic valve status post aortic valve replacement, history of steal syndrome for AVF, PAD [with history of REIA stent, R SFA/pop lithotripsy/angioplasty for occlusion, R PT/peroneal angioplasty on 07/17], insulin-dependent T2DM, diabetic neuropathy, history of CVA, history of PE who presents to the ED secondary to worsening left foot pain x 3 to 4 days. het was recently hospitalized at [facility] from 01/04 to 01/07 due to injury of his left foot. This is the site of previous amputations in October where he had digits 2 and 3 removed from left foot as well as partial amputation of right 4th and 5th fingers due to dry gangrene. He was seen and evaluated by his primary aust[place] rules footballer Dr. Aguilar and underwent L TMA on 01/06. patient admitted recently in October 2024 with severe sepsis secondary to left foot osteomyelitis, MSSA bacteremia in which she was disc harged on 6 weeks of IV cefazolin. currently being admitted with a presumptive diagnosis of infection of the left foot. also reports she is unable to do anything at home and does not appear she is able to take care of the patient at home. review of systems------ 12 systems reviewed and is otherwise negative physical examination middle aged white male who appears chronically ill. No overt respiratory distress. normal speech and was present at the bedside mucous membrane is moist neck is supple no JVD chest bilateral diminished breath sound but no respiratory distress and on room air 97% saturation CVS S1 and S2 regular systolic murmur heard abdomen is soft nontender extremities with trace to 1+ edema in the left and no edema in the right Allergies Allergy/AdvReac Type Severity Reaction Status Date / Time daptomycin Allergy Rash Verified 10/10/24 09:48 Home Medications Medication Instructions Recorded Confirmed Type atenolol 50 mg tablet 50 mg PO QAM 03/07/20 01/09/25 History insulin aspart U-100 100 unit/mL 1 sliding scale dose subcut UD 03/07/20 01/09/25 History (3 mL) subcutaneous pen (Novolog FlexPen U-100 Insulin aspart) insulin glargine 100 unit/mL (3 30 unit subcut QAM 03/07/20 01/09/25 History mL) subcutaneous pen (Basaglar KwikPen U-100 Insulin) cholecalciferol (vitamin D3) 25 25 mcg PO .3X WEEK 11/01/21 01/09/25 History mcg (1,000 unit) tablet (Vitamin D3) acetaminophen 500 mg tablet 500 - 1,000 mg PO UD PRN Pain 10/10/24 01/09/25 History torsemide 100 mg tablet 100 mg PO DAILY 10/10/24 01/09/25 History aspirin 81 mg tablet,delayed 81 mg PO DAILY #30 tabs 11/08/24 01/09/25 Rx release clopidogrel 75 mg tablet 75 mg PO HS #30 tabs 11/08/24 01/09/25 Rx gabapentin 600 mg tablet 600 mg PO TID #30 tabs 11/08/24 01/09/25 Rx lidocaine 5 % topical patch 1 patch transdermal QAM #15 ea 11/08/24 01/09/25 Rx cephalexin 500 mg capsule 500 mg PO QID 7 days #28 caps 01/03/25 01/09/25 Rx amlodipine 5 mg tablet 5 mg PO QAM 01/09/25 01/09/25 History atorvastatin 80 mg tablet 80 mg PO HS 01/09/25 01/09/25 History docusate sodium 100 mg capsule 100 mg PO BID PRN Constipation 01/09/25 01/09/25 History oxycodone 5 mg/5 mL oral solution 2.5 mg PO Q6H PRN Pain, Severe 01/09/25 01/09/25 History Patient History Medical History PAD (peripheral artery disease) RIGHT: S/P R MYSQL DATABASE ADMINISTRATOR endarterectomy, R SFA/pop angioplasty/stenting, and R peroneal angioplasty by Dr. Loco on 03/13/2017 S/P R PT/peroneal angioplasty and R great toe amputation 05/03/[address] Loco. S/P R great toe amputation debridement 05/06/[address] Loco. S/P R LE angiogram 05/31/[address] Enrique. S/P R SFA ALEKS-angioplasty 07/04/[address] Enrique S/P REIA stent, R SFA/pop lithotripsy/angioplasty (for occlusion), R PT/peroneal angioplasty by on 07/08/24. LEFT: S/P L MYSQL DATABASE ADMINISTRATOR/DFA Endarterectomy and L SFA stent by Dr. Loco on 09/04/14 S/P L SFA/pop angioplasty by Dr. Page on 06/26/20 S/P L EIA stenting, L pop lithotripsy, and L PT/peroneal angioplasty by Dr. Enrique on 05/31/21 S/P L hallux amputation 07/01/[address] Aguilar S/P L 1st ray amputation 08/08/[address] Aguilar. Amputation of left great toe Osteomyelitis Hallux abducto valgus, bilateral Amputated great toe of right foot Diabetes mellitus with neuropathy Diabetic peripheral neuropathy Callus Surgical History History of revascularization procedure of lower extremity Social History Smoking Status: Former smoker Tobacco Type: Cigarettes and Smokeless Tobacco (Dip or Chew) Do You Dip or Chew Tobacco: Yes; Hx Alcohol Use: Yes Alcohol type: beer Hx Substance Use: No Preferred Language: Albanian Communication Ability: Effective Visual Impairment: Limited Hearing Ability: Normal Drupal Developer Required: No Beliefs That Will Affect Care: None marital status: Current Living Situation: Spouse current occupational status: employed 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 Feels Safe at Home: Yes Diet: diabetic caffeine: Yes Physical Activity Frequency: Daily Do you think of yourself as: straight/heterosexual Gender Identity: Male Assistive Devices: Walker and Wheelchair Results & Data Vital Signs (Past 12 Hours) Vital Signs Temp Pulse Pulse Pulse Resp BP BP 01/09/25 12:33 79 141/71 H 01/09/25 12:27 36.9 C 79 01/09/25 12:24 36.6 C 16 170/73 H 01/09/25 11:00 78 18 159/82 H 01/09/25 09:28 82 16 138/108 H 01/09/25 08:19 85 01/09/25 07:35 83 16 135/70 01/09/25 07:35 37.6 C H 87 16 135/70 Pulse Ox O2 Del Method 01/09/25 12:33 01/09/25 12:27 01/09/25 12:24 97 Room Air 01/09/25 11:00 93 Room Air 01/09/25 09:28 94 Room Air 01/09/25 08:19 01/09/25 07:35 96 Room Air 01/09/25 07:35 96 Room Air Laboratory Results CBC and renal panel Diagnostic Findings chest x-ray without CHF
[2025-01-09] MEDS: ACETAMINOPHEN 325 MG TAB PO PRN (13:45)
[2025-01-09] MEDS: MoRPHine SULFATE 4 MG/ML 1 ML CARP\\VIAL IV PRN (13:45)
--- NOTE | 2025-01-09 14:03 | Pharmacy Report ---
Pharmacy PK ABX Note - Date of Service January 09, 2025 - Assessment and Plan Assessment 64 year old M receiving vancomycin/ertapenem for L foot cellulitis. PMHx significant for ESRD on HD, aortic valve replacement, T2DM. Underwent L TMA on 01/06/25. Hx of 2nd/3rd toe amputations in the past d/t chronic osteomyelitis and also amputations of right finger. Hx MDRO including ESBL, morganella, enterobacter. Foot xray neg for osteomyelitis. Plan Vancomycin * Loading dose: 2000 mg iv x 1 * Will dose by levels d/t ESRD - will order a random vancomycin level tomorrow AM to assist with further dosing Pharmacy will continue to follow and will adjust dose/frequency as necessary. Thank you. Pharmacy has transitioned to AUC monitoring for vancomycin. AUC/KEVIN is the preferred PK/PD target and is associated with decreased risk of nephrotoxicity compared to traditional trough targets.
[2025-01-09] MEDS: HEPARIN SOD (PORCINE) 1000 UNIT/ML IV SCH (15:16)
[2025-01-09] MEDS: EPOETIN ALFA 4,000 UNIT/ML VIAL IV ONE (15:17)
[2025-01-09] MEDS: VANCOMYCIN HCL 2,000 MG in SODIUM CHLORIDE 0.9% 500 ML IV STA (16:20)
[2025-01-09] MEDS: GABAPENTIN 600 MG TAB PO SCH (16:20)
[2025-01-09] MEDS: CHOLECALCIFEROL 25 MCG (1000 UNITS) TAB PO SCH (16:20)
[2025-01-09] MEDS: ACETAMINOPHEN 500 MG TAB PO SCH (16:20)
[2025-01-09 17:07] LABS: Appearance Urine Turbid (Clear); Bacteria Urine Automated 4+ (None Seen); Glucose Urine UA Negative (Negative); WBC Urine Automated >50 /hpf (0-5)
--- NOTE | 2025-01-09 19:47 | Ultrasound Report ---
Clinical history: Peripheral vascular disease Technique: Ankle-brachial index measurements were obtained Findings: The right ankle-brachial index is diminished at 0.66 The left ANASTASIIA could not be obtained as the left ankle arteries were not compressible Impression: 1. Diminished right ANASTASIIA, indicative of moderate severity peripheral arterial disease 2. Inability to obtain a left ANASTASIIA due to noncompressible vessels ACT 112: Positive. There are findings on this exam that require communication between the performing entity and the patient following Patient Test Result Information Act ([place] ACT 112) guidelines. Electronically signed by Mak Park 01-09-2025 7:46 PM
[2025-01-09] MEDS: POLYETHYLENE (MIRALAX) 17 GM PACK PO PRN (21:39)
[2025-01-09] MEDS: ATORVASTATIN 40 MG TAB PO SCH (21:41)
[2025-01-09] MEDS: CLOPIDOGREL BISULFATE 75 MG TAB PO SCH (21:41)
[2025-01-09] MEDS: HEPARIN SOD 5,000 UNIT/0.5 ML VIAL SQ SCH (21:42)
[2025-01-10 06:39] LABS: Hematocrit (blood only) 24.2 % (42.0-52.0); Hemoglobin 8.1 g/dL (14.0-18.0); Immature Granulocytes # (auto) 0.10 K/uL (0.01-0.20); Immature Granulocytes % (auto) 0.6 %; Mean Corpuscular Hemoglobin 32.1 pg (25.0-34.0); Mean Corpuscular Volume 96.0 fL (80.0-100.0); Platelet Count 278 K/uL (130-400); RDW Standard Deviation 51.5 fL (36.4-46.3); Red Blood Count 2.52 M/uL (4.70-6.10); White Blood Count 17.41 K/ul (4.8-10.8)
[2025-01-10 07:12] LABS: Anion Gap 11.0 (3-11); Blood Urea Nitrogen 29.0 mg/dl (6-23); Calcium 9.0 mg/dl (8.6-10.3); Carbon Dioxide 28.0 mmol/L (21-32); Chloride 96.0 mmol/L (98-107); Creatinine Clr Calc Pharmacy 20.4 ml/min; Glucose 134.0 mg/dl (70-99(Fasting)); Magnesium 2.0 mg/dl (1.7-2.4); Potassium 4.1 mmol/L (3.5-5.1); Sodium 135.0 mmol/L (136-145)
[2025-01-10 07:42] LABS: Hemoglobin A1C 6.7 % (4.5-5.6)
[2025-01-10] MEDS: ASPIRIN 81 MG ECTAB PO SCH (08:28)
[2025-01-10] MEDS: ADVANCED PROBIOTIC 625 MG CAPSULE PO SCH (08:28)
[2025-01-10] MEDS: ATENOLOL 50 MG TABLET PO SCH (08:28)
[2025-01-10] MEDS: LANTUS PER UNIT CHARGE SQ SCH (08:29)
[2025-01-10] MEDS: TORSEMIDE 100 MG TAB PO SCH (08:30)
--- NOTE | 2025-01-10 08:35 | Vascular Surgery Consultation ---
Date of Consultation January 10, 2025 Assessment & Plan (1) PVD (peripheral vascular disease): Patient with long standing history of diabetes and PAD, with multiple lower extremity interventions bilaterally. ABIs were ordered and reviewed, specifically the left side, which demonstrated non-compressible vessels as expected with his diabetes. Waveforms were difficult to assess. On exam, distal pulses were not palpable, and in fact he also had a difficult to palpate left femoral pulse, suggestive of not only small vessel disease, but iliac disease as well. Will order CTA abdomen/pelvis with runoff to assess vessels further and plan for any possible intervention that may be needed from there. In the meantime he is on optimal medical management, which we would recommend continuing. (2) Foot pain, left: Does not sound like ischemic rest pain in talking with patient seroma vs hematoma vs abscess on CT scan to OR for I&D possibly today CTA abd/pelvis with runoff planned to assess vasculature (3) Cellulitis of foot, left: continue antibiotics per ID/primary team History of Present Illness Reason for Consultation: PAD Requesting Physician: Dr. Pritchett Attending Physician: Kashif Bustillo MD History of Present Illness Mr. Bentley is a 64 year old gentleman with PMHx significant for PAD, ESRD on HD MWF, DM type II, who presented to ED with left foot pain after recent L TMA, found to have leukocytosis, elevated procalcitonin, admitted with concerns for left foot infection. We are being asked to see him for his PAD. His PAD history is fairly extensive and he has undergone multiple bilateral lower extremity procedures since 2018, to include right EXPRESS CLERK endarterectomy, multiple R SFA/popliteal angioplasty and stenting, to include angioplasty with ALEKS, as well as lithotripsy, R peroneal angioplasty, R PT angioplasty, R EIA stent, L EXPRESS CLERK/DFA endarterectomy, L SFA, popliteal angioplasty and ultimately lithotripsy, L SFA stent, L EIA stenting, L PT/peroneal angioplasty. Ultimately he has had a right great toe amputation that also required debridement, as well as several left toe amputations and now ultimately a L TMA on 01/06/25 for dry gangrene. He states that since he underwent his TMA last week, he has continued with pretty constant left foot pain. He states the only thing that really relieves the pain is pain medication. He does not note any pattern to the pain coming and going. It does not necessarily wake him up at night. He does not walk much secondary to fatigue and pain, and when he does walk, he uses a walker. He denies any other non-healing wounds on his feet. He also notes poor appetite, early satiety and weakness with difficulty getting out of bed. He denies fevers, chills, nausea, vomiting. He was recently treated for sepsis due to left foot osteomyelitis in October 2024, with MSSA bacteremia, and finished 6 weeks of IV cefazolin. 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 In the ED he was noted to have leukocytosis to 22, along with elevated ESR, CRP and procalcitonin. He was started on Ertapenem and vancomycin based on his most recent cultures, and CT of the left foot was performed, showing a non-specific fluid collection adjacent to TMA site. He has been seen by podiatry who ordered vascular studies with ANASTASIIA, which demonstrated non-compressible vessels. The wave forms at the left ankle are difficulty to accurately assess, as patient was likely moving during exam. He denies history of SD. He does have history of stroke he thinks about 12 years ago. He is on aspirin, statin and plavix currently. He is a former smoker. He currently receives dialysis via tunneled dialysis line. Allergies Allergy/AdvReac Type Severity Reaction Status Date / Time daptomycin Allergy Rash Verified 10/10/24 09:48 Home Medications Medication Instructions Recorded Confirmed Type atenolol 50 mg tablet 50 mg PO QAM 03/07/20 01/09/25 History insulin aspart U-100 100 unit/mL 1 sliding scale dose subcut UD 03/07/20 01/09/25 History (3 mL) subcutaneous pen (Novolog FlexPen U-100 Insulin aspart) insulin glargine 100 unit/mL (3 30 unit subcut QAM 03/07/20 01/09/25 History mL) subcutaneous pen (Basaglar KwikPen U-100 Insulin) cholecalciferol (vitamin D3) 25 25 mcg PO .3X WEEK 11/01/21 01/09/25 History mcg (1,000 unit) tablet (Vitamin D3) acetaminophen 500 mg tablet 500 - 1,000 mg PO UD PRN Pain 10/10/24 01/09/25 History torsemide 100 mg tablet 100 mg PO DAILY 10/10/24 01/09/25 History aspirin 81 mg tablet,delayed 81 mg PO DAILY #30 tabs 11/08/24 01/09/25 Rx release clopidogrel 75 mg tablet 75 mg PO HS #30 tabs 11/08/24 01/09/25 Rx gabapentin 600 mg tablet 600 mg PO TID #30 tabs 11/08/24 01/09/25 Rx lidocaine 5 % topical patch 1 patch transdermal QAM #15 ea 11/08/24 01/09/25 Rx cephalexin 500 mg capsule 500 mg PO QID 7 days #28 caps 01/03/25 01/09/25 Rx amlodipine 5 mg tablet 5 mg PO QAM 01/09/25 01/09/25 History atorvastatin 80 mg tablet 80 mg PO HS 01/09/25 01/09/25 History docusate sodium 100 mg capsule 100 mg PO BID PRN Constipation 01/09/25 01/09/25 History oxycodone 5 mg/5 mL oral solution 2.5 mg PO Q6H PRN Pain, Severe 01/09/25 01/09/25 History Patient History Medical History PAD (peripheral artery disease) RIGHT: S/P R EXPRESS CLERK endarterectomy, R SFA/pop angioplasty/stenting, and R peroneal angioplasty by Dr. Loco on 03/13/2017 S/P R PT/peroneal angioplasty and R great toe amputation 05/03/[address] Loco. S/P R great toe amputation debridement 05/06/[address] Loco. S/P R LE angiogram 05/31/[address] Enrique. S/P R SFA ALEKS-angioplasty 07/04/[address] Enrique S/P REIA stent, R SFA/pop lithotripsy/angioplasty (for occlusion), R PT/peroneal angioplasty by on 07/08/24. LEFT: S/P L EXPRESS CLERK/DFA Endarterectomy and L SFA stent by Dr. Loco on 09/04/14 S/P L SFA/pop angioplasty by Dr. Page on 06/26/20 S/P L EIA stenting, L pop lithotripsy, and L PT/peroneal angioplasty by Dr. Enrique on 05/31/21 S/P L hallux amputation 07/01/[address] Aguilar S/P L 1st ray amputation 08/08/[address] Aguilar. 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 Required: No Beliefs That Will Affect Care: None marital status: Current Living Situation: Spouse Current Living Situation Comment: home with current occupational status: employed 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 Feels Safe at Home: Yes Safety Concerns: Feels Safe At This Time Diet: diabetic caffeine: Yes Physical Activity Frequency: Daily Do you think of yourself as: straight/heterosexual Gender Identity: Male Assistive Devices: Special Shoe and Walker Review of Systems Constitutional: see HPI Respiratory: denies coughing, wheezing, shortness of breath Cardiovascular: Additional Comments: positive for lower extremity edema, negative for chest pain, palpitations Gastrointestinal: see HPI Musculoskeletal: positive left foot pain, positive for toe amputations, positive for dry gangrene to right 4th and 5th fingers, negative other joint pain or swelling Integumentary: positive for dry gangrene right 4th and fifth fingers, negative for rash, negative for itching Neurologic: positive for weakness and neuropathy, negative for speech difficulties Physical Exam Constitutional: well developed, well nourished, in no distress, sitting up in bed Neck: supple, trachea midline, no carotid bruits noted Respiratory: normal respiratory effort, no accessory muscle use noted, CTAB Cardiovascular: RRR, no murmurs +1 pitting edema in feet/ankles right femoral pulse +2, left femoral pulse more difficult to appreciate, +1. distal pulses non-palpable. Difficulty obtaining signals in bilateral DP, however phasic signals noted in both PTs bilaterally. Chest (Breasts): Additional Comments: right sided dialysis catheter in place Musculoskeletal: tip of right 4th and 5th digits with dry gangrene, no erythema or edema of the fingers. right foot with healed great toe amputation, no other wounds noted, + edema of ankle and foot. left foot with TMA, sutures intact, edges well approximated, dried blood at lateral aspect of incision. + tenderness over foot with palpation. + edema to foot and ankle with erythema. Skin: warm and dry Neurologic: No focal deficits noted. AA&O x 3 Results & Data Vital Signs (Past 12 Hours) Vital Signs Temp Pulse Pulse Resp BP Pulse Ox O2 Del Method 01/10/25 07:37 69 01/10/25 04:27 37.0 C 70 18 134/78 94 Room Air 01/09/25 23:32 Room Air 01/09/25 23:26 74 01/09/25 23:04 36.8 C 64 18 151/72 H 91 Room Air Laboratory Results 01/09/25 07:58 Aerobic Blood Culture - Preliminary Blood No growth in Aerobic bottle after 24 hours. Anaerobic Blood Culture - Preliminary No growth in Anaerobic bottle after 24 hours. 01/09/25 08:04 Aerobic Blood Culture - Preliminary Blood No growth in Aerobic bottle after 24 hours. Anaerobic Blood Culture - Preliminary No growth in Anaerobic bottle after 24 hours. 01/09/25 Unknown Urine Culture - Pending Urine,Straight Cath 01/10/25 01/10/25 01/10/25 08:09 07:19 05:59 WBC 17.41 H RBC 2.52 L Hgb 8.1 L Hct 24.2 L MCV 96.0 MCH 32.1 MCHC 33.5 RDW Std Deviation 51.5 H RDW Coeff of Kesha 14.6 H Plt Count 278 MPV 10.7 Immature Gran % (Auto) 0.6 Neut % (Auto) 78.9 Lymph % (Auto) 11.9 [place] % (Auto) 6.8 Eos % (Auto) 1.4 Baso % (Auto) 0.4 Neut # (Auto) 13.73 H Lymph # (Auto) 2.08 [place] # (Auto) 1.19 H Eos # (Auto) 0.24 Baso # (Auto) 0.07 Immature Gran # (Auto) 0.10 Sodium 135 L Potassium 4.1 Chloride 96 L Carbon Dioxide 28 Anion Gap 11 BUN 29 H Creatinine 4.52 H* D Est Cr Clr Drug Dosing 20.4 eGFR 13.84 BUN/Creatinine Ratio 6.4 L Glucose 134 H POC Glucose 150 H 147 H Estimat Average Glucose 146 Hemoglobin A1c 6.7 H Calcium 9.0 Phosphorus 4.3 Magnesium 2.0 Urine Color Urine Appearance Urine pH Ur Specific [place] Urine Protein Urine Glucose (UA) Urine Ketones Urine Blood Urine Nitrite Urine Bilirubin Urine Urobilinogen Ur Leukocyte Esterase Urine WBC (Auto) Urine RBC (Auto) U Hyaline Cast (Auto) U Epithel Cells (Auto) Urine Bacteria (Auto) Hyaline Casts Urine Comment Nasal Screen MRSA (PCR) Random Vancomycin 19.8 Hepatitis C Ab Screen Negative 01/09/25 01/09/25 01/09/25 Unknown 19:46 16:55 WBC RBC Hgb Hct MCV MCH MCHC RDW Std Deviation RDW Coeff of Kesha Plt Count MPV Immature Gran % (Auto) Neut % (Auto) Lymph % (Auto) [place] % (Auto) Eos % (Auto) Baso % (Auto) Neut # (Auto) Lymph # (Auto) [place] # (Auto) Eos # (Auto) Baso # (Auto) Immature Gran # (Auto) Sodium Potassium Chloride Carbon Dioxide Anion Gap BUN Creatinine Est Cr Clr Drug Dosing eGFR BUN/Creatinine Ratio Glucose POC Glucose 205 H 155 H Estimat Average Glucose Hemoglobin A1c Calcium Phosphorus Magnesium Urine Color Dark Yellow Urine Appearance Turbid A Urine pH 6.5 Ur Specific [place] 1.015 Urine Protein 3+ H Urine Glucose (UA) Negative Urine Ketones Trace H Urine Blood 2+ H Urine Nitrite Negative Urine Bilirubin Negative Urine Urobilinogen Negative Ur Leukocyte Esterase 3+ H Urine WBC (Auto) >50 H Urine RBC (Auto) 3-5 H U Hyaline Cast (Auto) 6-10 H U Epithel Cells (Auto) 3-5 H Urine Bacteria (Auto) 4+ H Hyaline Casts Present A Urine Comment Nasal Screen MRSA (PCR) Random Vancomycin Hepatitis C Ab Screen 01/09/25 01/09/25 12:13 11:04 WBC RBC Hgb Hct MCV MCH MCHC RDW Std Deviation RDW Coeff of Kesha Plt Count MPV Immature Gran % (Auto) Neut % (Auto) Lymph % (Auto) [place] % (Auto) Eos % (Auto) Baso % (Auto) Neut # (Auto) Lymph # (Auto) [place] # (Auto) Eos # (Auto) Baso # (Auto) Immature Gran # (Auto) Sodium Potassium Chloride Carbon Dioxide Anion Gap BUN Creatinine Est Cr Clr Drug Dosing eGFR BUN/Creatinine Ratio Glucose POC Glucose 180 H Estimat Average Glucose Hemoglobin A1c Calcium Phosphorus Magnesium Urine Color Urine Appearance Urine pH Ur Specific [place] Urine Protein Urine Glucose (UA) Urine Ketones Urine Blood Urine Nitrite Urine Bilirubin Urine Urobilinogen Ur Leukocyte Esterase Urine WBC (Auto) Urine RBC (Auto) U Hyaline Cast (Auto) U Epithel Cells (Auto) Urine Bacteria (Auto) Hyaline Casts Urine Comment Nasal Screen MRSA (PCR) Positive A Random Vancomycin Hepatitis C Ab Screen Diagnostic Findings Chest X-Ray 01/09/25 11:01 XR chest 1V portable CLINICAL HISTORY: concern for infection, recent hospitalization COMPARISON STUDY: Chest radiograph October 23, 2024. Chest CT October 24, 2024. FINDINGS: Median sternotomy wires, left subclavian pacer and dual lumen right internal jugular central venous catheter remain in place. There is a trace left pleural effusion. There is no pneumothorax. Linear right infrahilar and perihilar densities favor atelectasis or scarring. Cardiomegaly is unchanged. There is no radiographic evidence for pulmonary edema. Mild left lower lung interstitial thickening is unchanged. IMPRESSION: 1. Cardiomegaly without evidence for pulmonary edema. Trace left pleural effusion. 2. Mild left lower lung interstitial thickening, similar to prior exam. 3. No definite consolidation to suggest pneumonia. ACT 112: Negative or not required by law. Electronically signed by: Tyrone Pearson M.D. 01/09/2025 11:20 AM Ankle Brachial Index 01/09/25 16:03 Clinical history: Peripheral vascular disease Technique: Ankle-brachial index measurements were obtained Findings: The right ankle-brachial index is diminished at 0.66 The left ANASTASIIA could not be obtained as the left ankle arteries were not compressible Impression: 1. Diminished right ANASTASIIA, indicative of moderate severity peripheral arterial disease 2. Inability to obtain a left ANASTASIIA due to noncompressible vessels ACT 112: Positive. There are findings on this exam that require communication between the performing entity and the patient following Patient Test Result Information Act ([place] ACT 112) guidelines. Electronically signed by Mak Park 01-09-2025 7:46 PM Medications Administered Home Medications Medication Instructions Recorded Confirmed Last Taken atenolol 50 mg tablet 50 mg PO QAM 03/07/20 01/09/25 07/19/21 insulin aspart U-100 100 unit/mL 1 sliding scale dose subcut UD 03/07/20 01/09/25 07/19/21 12:00 (3 mL) subcutaneous pen (Novolog 10 units FlexPen U-100 Insulin aspart) insulin glargine 100 unit/mL (3 30 unit subcut QAM 03/07/20 01/09/25 07/19/21 mL) subcutaneous pen (Basaglar KwikPen U-100 Insulin) cholecalciferol (vitamin D3) 25 25 mcg PO .3X WEEK 11/01/21 01/09/25 Unknown mcg (1,000 unit) tablet (Vitamin D3) acetaminophen 500 mg tablet 500 - 1,000 mg PO UD PRN Pain 10/10/24 01/09/25 Unknown torsemide 100 mg tablet 100 mg PO DAILY 10/10/24 01/09/25 Unknown aspirin 81 mg tablet,delayed 81 mg PO DAILY #30 tabs 11/08/24 01/09/25 Unknown release clopidogrel 75 mg tablet 75 mg PO HS #30 tabs 11/08/24 01/09/25 Unknown gabapentin 600 mg tablet 600 mg PO TID #30 tabs 11/08/24 01/09/25 Unknown lidocaine 5 % topical patch 1 patch transdermal QAM #15 ea 11/08/24 01/09/25 U nknown cephalexin 500 mg capsule 500 mg PO QID 7 days #28 caps 01/03/25 01/09/25 Unknown amlodipine 5 mg tablet 5 mg PO QAM 01/09/25 01/09/25 Unknown atorvastatin 80 mg tablet 80 mg PO HS 01/09/25 01/09/25 Unknown docusate sodium 100 mg capsule 100 mg PO BID PRN Constipation 01/09/25 01/09/25 Unknown oxycodone 5 mg/5 mL oral solution 2.5 mg PO Q6H PRN Pain, Severe 01/09/25 01/09/25 Unknown Active Medications Generic Name Dose Route Start Last Admin Trade Name Freq PRN Reason Stop Dose Admin Acetaminophen 650 mg 01/09/25 12:20 01/09/25 13:45 Acetaminophen 325 Mg Tab PO 02/08/25 12:19 650 mg Q4H PRN Administration Pain or Fever Acetaminophen 500 mg 01/09/25 12:20 01/10/25 04:27 Acetaminophen 500 Mg Tab PO 02/08/25 12:19 500 mg Q8H ESTHER Administration Amlodipine Besylate 5 mg 01/10/25 09:00 01/10/25 08:28 Amlodipine Besylate 5 Mg Tab PO 02/09/25 08:59 5 mg QAM ESTHER Administration Aspirin 81 mg 01/10/25 09:00 01/10/25 08:28 Aspirin 81 Mg Ectab PO 02/09/25 08:59 81 mg DAILY ESTHER Administration Atenolol 50 mg 01/10/25 09:00 01/10/25 08:28 Atenolol 50 Mg Tablet PO 02/09/25 08:59 50 mg QAM ESTHER Administration Atorvastatin Calcium 80 mg 01/09/25 21:00 01/09/25 21:41 Atorvastatin 40 Mg Tab PO 02/08/25 20:59 80 mg HS ESTHER Administration Clopidogrel Bisulfate 75 mg 01/09/25 21:00 01/09/25 21:41 Clopidogrel Bisulfate 75 Mg Tab PO 02/08/25 20:59 75 mg HS ESTHER Administration Gabapentin 600 mg 01/09/25 14:00 01/10/25 08:28 Gabapentin 600 Mg Tab PO 02/08/25 13:59 600 mg TID ESTHER Administration Heparin Sodium (Porcine) 5,000 units 01/09/25 21:00 01/10/25 05:56 Heparin Sod 5,000 Unit/0.5 Ml Vial SQ 02/08/25 20:59 5,000 units Q8 ESTHER Administration Insulin Aspart 0 units 01/09/25 12:20 01/10/25 08:27 Insulin Aspart Per Unit Charge SC 02/08/25 12:19 [facility]ulin Glargine 0 - 20 units 01/10/25 09:00 01/10/25 08:29 Lantus Per Unit Charge SQ 02/09/25 08:59 10 units DAILY ESTHER Administration Lactobacillus Acidophilus 1,250 mg 01/10/25 09:00 01/10/25 08:28 Advanced Probiotic 625 Mg Capsule PO 02/09/25 08:59 1,250 mg DAILY ESTHER Administration Morphine Sulfate 3 mg 01/09/25 12:20 01/09/25 21:39 Morphine Sulfate 4 Mg/Ml 1 Ml Carp\Vial IV 01/23/25 12:19 3 mg Q4H PRN Administration Severe Pain (Scale 7, 8, 9,10) Oxycodone HCl 5 mg 01/09/25 12:20 01/10/25 08:29 Oxycodone Hcl Soln 5 Mg/5 Ml Udc PO 01/23/25 12:19 5 mg Q6H PRN Administration Moderate Pain (Scale 4, 5, 6) Polyethylene Glycol 17 gm 01/09/25 12:20 01/09/25 21:39 Polyethylene (Miralax) 17 Gm Pack PO 02/08/25 12:19 17 gm DAILY PRN Administration Constipation Torsemide 100 mg 01/10/25 09:00 01/10/25 08:30 Torsemide 100 Mg Tab PO 02/09/25 08:59 100 mg DAILY ESTHER Administration Vitamin D 25 mcg 01/09/25 12:30 01/09/25 16:20 Cholecalciferol 25 Mcg (1000 Units) Tab PO 02/08/25 12:29 25 mcg MoWeFr@0900 ESTHER Administration PG Care Time/CCT Total # of Minutes Spent Total Time Spent with Patient: Total time spent is greater than 50% in coordination of care (as documented) at patient's floor/unit and/or counseling patient: [place] [address] INT INP/OBS CARE 2/55MIN Patient Type New History Detailed Exam Detailed Medical Decision Making Moderate Complexity Diagnoses PVD (peripheral vascular disease) I73.9 Foot pain, left M79.672 Cellulitis of foot, left L03.116
--- NOTE | 2025-01-10 09:04 | Nephrology Progress Note ---
Date of Service January 10, 2025 Assessment & Plan Admission and Anticipated Discharge Date Admission Date: January 09, 2025 Subjective Assessment & Plan (1) End stage renal disease on dialysis: ESRD on hemodialysis Thursday. At this time no evidence of fluid overload and no electrolyte issues in fact he has not been eating and drinking for many days now and as a result may even be somewhat Euvolemic. potassium is also somewhat low so will do 3 K bath. hemoglobin is low and will be giving TRELL Procrit 57791 units tomorrow. next HD tomorrow --3.5 hrs and take 2 kilo off on 3 K bath (2) Osteomyelitis of finger: does have elevated white count. On antibiotics. (3) Gangrene of finger: patient with extensive issues related with osteomyelitis infection as well as gangrene of finger and toes requiring extensive surgical intervention in the recent past as well as antibiotic therapy. defer to primary team. On vanco and ertapenem currently. Dose adjustment/timing with dialysis. further antibiotics choice will be as per primary team and possibly Infectious Disease as patient is quite complicated S----Feels fine. had HD yesterday without issues. Did see vascular. review of systems------ 12 systems reviewed and is otherwise negative physical examination middle aged white male who appears chronically ill. No overt respiratory distress. normal speech and was present at the bedside mucous membrane is moist neck is supple no JVD chest bilateral diminished breath sound but no respiratory distress and on room air 97% saturation CVS S1 and S2 regular systolic murmur heard abdomen is soft nontender extremities with trace to 1+ edema in the left and no edema in the right Results & Data Vital Signs (Past 12 Hours) Vital Signs Temp Pulse Pulse Resp BP BP Pulse Ox 01/10/25 08:26 112/69 01/10/25 08:13 36.8 C 71 16 99 01/10/25 07:37 69 01/10/25 04:27 37.0 C 70 18 134/78 94 01/09/25 23:32 01/09/25 23:26 74 01/09/25 23:04 36.8 C 64 18 151/72 H 91 O2 Del Method 01/10/25 08:26 01/10/25 08:13 Room Air 01/10/25 07:37 01/10/25 04:27 Room Air 01/09/25 23:32 Room Air 01/09/25 23:26 01/09/25 23:04 Room Air
--- NOTE | 2025-01-10 09:14 | Infectious Disease Consult ---
Date of Consultation January 10, 2025 Assessment & Plan (1) Abscess of left foot: (2) PVD (peripheral vascular disease): (3) Status post transmetatarsal amputation of left foot: (4) Cellulitis of foot, left: Plan Problems: #L foot osteomyelitis s/p 2nd and 3rd toe amputation (09/2024) c/b injury/dehiscence s/p TMA (01/06/25), now with concern for abscess #T2DM #PAD #Pacemaker in place #MSSA bacteremia 09/2024 thought 2/2 L foot osteomyelitis s/p cefazolin x 6 weeks through 11/25/24. ANI negative Micro: 01/09 UCx: pending 01/09 BCx x2: NGTD 11/17 Back wound cx: ESBL Kleb pneumo, Morganella morganii 10/14 R 4th finger tip cx: MSSA, Enterobacer cloacae complex, Cutibacterium avidum, low counts probable skin shazia 10/12 L toe cx: MSSA, Helcococcus kunzii, Anaerococcus vaginalis, mod probable skin shazia 10/12 BCx x2: MSSA in 2/4 bottles 10/10 BCx x2: MSSA in 4/4 bottles Abx: Vanc 01/09 - present Ertapenem 01/09 - present 64 yo M with history of T2DM, diabetic neuropathy, PAD s/p prior revascularizations, CAD s/p CABG x 2, complete heart block s/p pacemaker, bicuspid aortic valve s/p AVR, ESRD on HD, history of steal syndrome for AVF, CVA, PE who presented on 01/09 with worsening L foot pain x 3-4 days, found on CT to have soft tissue fluid collection adjacent to TMA site c/f abscess. Was hospitalized at [facility] 10/10-11/08 with MSSA bacteremia, L foot osteomyelitis s/p L 2nd and 3rd toe amputations, R 4th and 5th finger dry gangrene/osteomyelitis s/p partial amputations. Was seen by Wilda JIM. ANI was negative. He was discharged on cefazolin x 6 weeks through 11/25/24. Pt was recently hospitalized at [facility] 01/04-01/07 due to injuring his L foot at the site of prior amputations. He was seen by his photogrammetrist Dr. Aguilar and underwent L TMA on 01/06/25. Pt denied fevers, but reported sweats. Has been on Keflex for the last week, which was prescribed at [facility] ER on 01/03 prior to his admission to [facility]. On presentation, pt was afebrile, VSS. Labs showed WBC 22.32, ESR 60, CRP 35.62, procal 2.17. UA with >[address] L foot without contrast showed interval postop changes, nonspecific soft tissue fluid collection adjacent to TMA site for which differential includes seroma, hematoma, developing abscess. L foot XR with no acute osseous findings. Pt was started on vanc and ertapenem. Podiatry was consulted, noted pain to palpation, erythema, and drainage to L lateral foot. Pt will be taken to the OR on 01/10 for L foot I&D. Recommendations: - Continue vanc and ertapenem - Will follow-up operative findings. Please send operative cultures to help direct further antibiotic therapy Will continue to follow. Consultation Information This patient recommendation is based on a telemedicine consult request which was completed asynchronously through chart review and information provided by the primary physician. The patient was not seen or examined today. The evaluation is consultative in nature and all patient care and treatment decisions can either be accepted or rejected by the patient's primary hospital-based treating physician using their own independent medical judgment for their patient. Tetryl Screen Operator contact information: Please call [facility] . (Phone Number For Physician Use Only) Time Spent Reviewing Chart: 31+ minutes History of Present Illness Reason for Consultation: L foot infection and abscess Attending Physician: Kashif Bustillo MD History of Present Illness 64 yo M with history of T2DM, diabetic neuropathy, PAD s/p prior revascularizati ons, CAD s/p CABG x 2, complete heart block s/p pacemaker, bicuspid aortic valve s/p AVR, ESRD on HD, history of steal syndrome for AVF, CVA, PE who presented on 01/09 with worsening L foot pain x 3-4 days. Was hospitalized at [facility] 10/10-11/08 with MSSA bacteremia, L foot osteomyelitis s/p L 2nd and 3rd toe amputations, R 4th and 5th finger dry gangrene/osteomyelitis s/p partial amputations. Was seen by Wilda JIM. ANI was negative. He was discharged on cefazolin x 6 weeks through 11/25/24. Pt was recently hospitalized at [facility] 01/04-01/07 due to injuring his L foot at the site of prior amputations. He was seen by his photogrammetrist Dr. Aguilar and underwent L TMA on 01/06/25. Pt denied fevers, but reported sweats. Has been on Keflex for the last week, which was prescribed at [facility] ER on 01/03 prior to his admission to [facility]. On presentation, pt was afebrile, VSS. Labs showed WBC 22.32, ESR 60, CRP 35.62, procal 2.17. UA with >[address] L foot without contrast showed interval postop changes, nonspecific soft tissue fluid collection adjacent to TMA site for which differential includes seroma, hematoma, developing abscess. L foot XR with no acute osseous findings. Pt was started on vanc and ertapenem. Podiatry was consulted, noted pain to palpation, erythema, and drainage to L lateral foot. Pt will be taken to the OR on 01/10 for L foot I&D. Allergies Allergy/AdvReac Type Severity Reaction Status Date / Time daptomycin Allergy Rash Verified 10/10/24 09:48 Home Medications Medication Instructions Recorded Confirmed Type atenolol 50 mg tablet 50 mg PO QAM 03/07/20 01/09/25 History insulin aspart U-100 100 unit/mL 1 sliding scale dose subcut UD 03/07/20 01/09/25 History (3 mL) subcutaneous pen (Novolog FlexPen U-100 Insulin aspart) insulin glargine 100 unit/mL (3 30 unit subcut QAM 03/07/20 01/09/25 History mL) subcutaneous pen (Basaglar KwikPen U-100 Insulin) cholecalciferol (vitamin D3) 25 25 mcg PO .3X WEEK 11/01/21 01/09/25 History mcg (1,000 unit) tablet (Vitamin D3) acetaminophen 500 mg tablet 500 - 1,000 mg PO UD PRN Pain 10/10/24 01/09/25 History torsemide 100 mg tablet 100 mg PO DAILY 10/10/24 01/09/25 History aspirin 81 mg tablet,delayed 81 mg PO DAILY #30 tabs 11/08/24 01/09/25 Rx release clopidogrel 75 mg tablet 75 mg PO HS #30 tabs 11/08/24 01/09/25 Rx gabapentin 600 mg tablet 600 mg PO TID #30 tabs 11/08/24 01/09/25 Rx lidocaine 5 % topical patch 1 patch transdermal QAM #15 ea 11/08/24 01/09/25 Rx cephalexin 500 mg capsule 500 mg PO QID 7 days #28 caps 01/03/25 01/09/25 Rx amlodipine 5 mg tablet 5 mg PO QAM 01/09/25 01/09/25 History atorvastatin 80 mg tablet 80 mg PO HS 01/09/25 01/09/25 History docusate sodium 100 mg capsule 100 mg PO BID PRN Constipation 01/09/25 01/09/25 History oxycodone 5 mg/5 mL oral solution 2.5 mg PO Q6H PRN Pain, Severe 01/09/25 01/09/25 History Patient History Medical History PAD (peripheral artery disease) RIGHT: S/P R CORPORATE SAFETY DIRECTOR endarterectomy, R SFA/pop angioplasty/stenting, and R peroneal angioplasty by Dr. Loco on 03/13/2017 S/P R PT/peroneal angioplasty and R great toe amputation 05/03/[address] Loco. S/P R great toe amputation debridement 05/06/[address] Loco. S/P R LE angiogram 05/31/[address] Enrique. S/P R SFA ALEKS-angioplasty 07/04/[address] Enrique S/P REIA stent, R SFA/pop lithotripsy/angioplasty (for occlusion), R PT/peroneal angioplasty by on 07/08/24. LEFT: S/P L CORPORATE SAFETY DIRECTOR/DFA Endarterectomy and L SFA stent by Dr. Loco on 09/04/14 S/P L SFA/pop angioplasty by Dr. Page on 06/26/20 S/P L EIA stenting, L pop lithotripsy, and L PT/peroneal angioplasty by Dr. Enrique on 05/31/21 S/P L hallux amputation 07/01/[address] Aguilar S/P L 1st ray amputation 08/08/[address] Aguilar. Amputation of left great toe Osteomyelitis Hallux abducto valgus, bilateral Amputated great toe of right foot Diabetes mellitus with neuropathy Diabetic peripheral neuropathy Callus Surgical History History of revascularization procedure of lower extremity Social History Smoking Status: Former smoker Tobacco Type: Cigarettes and Smokeless Tobacco (Dip or Chew) Do You Dip or Chew Tobacco: Yes; Hx Alcohol Use: No Hx Substance Use: No Preferred Language: Citizen Of [place] Communication Ability: Effective Visual Impairment: Limited Hearing Ability: Normal Gas Combustion Engineer Required: No Beliefs That Will Affect Care: None marital status: Current Living Situation: Spouse Current Living Situation Comment: home with current occupational status: employed 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 Feels Safe at Home: Yes Safety Concerns: Feels Safe At This Time Diet: diabetic caffeine: Yes Physical Activity Frequency: Daily Do you think of yourself as: straight/heterosexual Gender Identity: Male Assistive Devices: Special Shoe and Walker Results & Data Vital Signs (Past 12 Hours) Vital Signs Temp Pulse Pulse Resp BP BP Pulse Ox 01/10/25 08:26 112/69 01/10/25 08:13 36.8 C 71 16 99 01/10/25 07:37 69 01/10/25 04:27 37.0 C 70 18 134/78 94 01/09/25 23:32 01/09/25 23:26 74 01/09/25 23:04 36.8 C 64 18 151/72 H 91 O2 Del Method 01/10/25 08:26 01/10/25 08:13 Room Air 01/10/25 07:37 01/10/25 04:27 Room Air 01/09/25 23:32 Room Air 01/09/25 23:26 01/09/25 23:04 Room Air Laboratory Results Laboratory Results - last 48 hr 01/09/25 01/09/25 01/09/25 07:40 08:04 09:04 WBC 22.32 H RBC 2.92 L Hgb 9.3 L Hct 27.5 L MCV 94.2 MCH 31.8 MCHC 33.8 RDW Std Deviation 50.5 H RDW Coeff of Kesha 14.6 H Plt Count 277 MPV 10.5 Immature Gran % (Auto) 0.8 Neut % (Auto) 77.7 Lymph % (Auto) 13.4 [place] % (Auto) 7.6 Eos % (Auto) 0.2 Baso % (Auto) 0.3 Neut # (Auto) 17.38 H Lymph # (Auto) 2.98 [place] # (Auto) 1.69 H Eos # (Auto) 0.04 Baso # (Auto) 0.06 Immature Gran # (Auto) 0.17 ESR 60 H Sodium 132 L Potassium 3.9 Chloride 91 L Carbon Dioxide 26 Anion Gap 15 H BUN 44 H Creatinine 6.06 H* Est Cr Clr Drug Dosing Not Reportable eGFR 9.73 BUN/Creatinine Ratio 7.3 L Glucose 222 H POC Glucose Estimat Average Glucose Hemoglobin A1c Lactate 0.8 Calcium 9.1 Phosphorus Magnesium Total Bilirubin 0.7 AST 20 ALT 19 Alkaline Phosphatase 122 H C-Reactive Protein 35.62 H Total Protein 7.7 Albumin 3.7 Globulin 4.0 Albumin/Globulin Ratio 0.9 Procalcitonin 2.17 H Urine Color Urine Appearance Urine pH Ur Specific [place] Urine Protein Urine Glucose (UA) Urine Ketones Urine Blood Urine Nitrite Urine Bilirubin Urine Urobilinogen Ur Leukocyte Esterase Urine WBC (Auto) Urine RBC (Auto) U Hyaline Cast (Auto) U Epithel Cells (Auto) Urine Bacteria (Auto) Hyaline Casts Urine Comment Nasal Screen MRSA (PCR) Random Vancomycin Hepatitis C Ab Screen SARS-CoV-2, RNA, NAAT NEGATIVE 01/09/25 01/09/25 01/09/25 11:04 12:13 16:55 WBC RBC Hgb Hct MCV MCH MCHC RDW Std Deviation RDW Coeff of Kesha Plt Count MPV Immature Gran % (Auto) Neut % (Auto) Lymph % (Auto) [place] % (Auto) Eos % (Auto) Baso % (Auto) Neut # (Auto) Lymph # (Auto) [place] # (Auto) Eos # (Auto) Baso # (Auto) Immature Gran # (Auto) ESR Sodium Potassium Chloride Carbon Dioxide Anion Gap BUN Creatinine Est Cr Clr Drug Dosing eGFR BUN/Creatinine Ratio Glucose POC Glucose 180 H 155 H Estimat Average Glucose Hemoglobin A1c Lactate Calcium Phosphorus Magnesium Total Bilirubin AST ALT Alkaline Phosphatase C-Reactive Protein Total Protein Albumin Globulin Albumin/Globulin Ratio Procalcitonin Urine Color Urine Appearance Urine pH Ur Specific [place] Urine Protein Urine Glucose (UA) Urine Ketones Urine Blood Urine Nitrite Urine Bilirubin Urine Urobilinogen Ur Leukocyte Esterase Urine WBC (Auto) Urine RBC (Auto) U Hyaline Cast (Auto) U Epithel Cells (Auto) Urine Bacteria (Auto) Hyaline Casts Urine Comment Nasal Screen MRSA (PCR) Positive A Random Vancomycin Hepatitis C Ab Screen SARS-CoV-2, RNA, NAAT 01/09/25 01/09/25 01/10/25 19:46 Unknown 05:59 WBC 17.41 H RBC 2.52 L Hgb 8.1 L Hct 24.2 L MCV 96.0 MCH 32.1 MCHC 33.5 RDW Std Deviation 51.5 H RDW Coeff of Kesha 14.6 H Plt Count 278 MPV 10.7 Immature Gran % (Auto) 0.6 Neut % (Auto) 78.9 Lymph % (Auto) 11.9 [place] % (Auto) 6.8 Eos % (Auto) 1.4 Baso % (Auto) 0.4 Neut # (Auto) 13.73 H Lymph # (Auto) 2.08 [place] # (Auto) 1.19 H Eos # (Auto) 0.24 Baso # (Auto) 0.07 Immature Gran # (Auto) 0.10 ESR Sodium 135 L Potassium 4.1 Chloride 96 L Carbon Dioxide 28 Anion Gap 11 BUN 29 H Creatinine 4.52 H* D Est Cr Clr Drug Dosing 20.4 eGFR 13.84 BUN/Creatinine Ratio 6.4 L Glucose 134 H POC Glucose 205 H Estimat Average Glucose 146 Hemoglobin A1c 6.7 H Lactate Calcium 9.0 Phosphorus 4.3 Magnesium 2.0 Total Bilirubin AST ALT Alkaline Phosphatase C-Reactive Protein Total Protein Albumin Globulin Albumin/Globulin Ratio Procalcitonin Urine Color Dark Yellow Urine Appearance Turbid A Urine pH 6.5 Ur Specific [place] 1.015 Urine Protein 3+ H Urine Glucose (UA) Negative Urine Ketones Trace H Urine Blood 2+ H Urine Nitrite Negative Urine Bilirubin Negative Urine Urobilinogen Negative Ur Leukocyte Esterase 3+ H Urine WBC (Auto) >50 H Urine RBC (Auto) 3-5 H U Hyaline Cast (Auto) 6-10 H U Epithel Cells (Auto) 3-5 H Urine Bacteria (Auto) 4+ H Hyaline Casts Present A Urine Comment Nasal Screen MRSA (PCR) Random Vancomycin 19.8 Hepatitis C Ab Screen Negative SARS-CoV-2, RNA, NAAT 01/10/25 01/10/25 07:19 08:09 WBC RBC Hgb Hct MCV MCH MCHC RDW Std Deviation RDW Coeff of Kesha Plt Count MPV Immature Gran % (Auto) Neut % (Auto) Lymph % (Auto) [place] % (Auto) Eos % (Auto) Baso % (Auto) Neut # (Auto) Lymph # (Auto) [place] # (Auto) Eos # (Auto) Baso # (Auto) Immature Gran # (Auto) ESR Sodium Potassium Chloride Carbon Dioxide Anion Gap BUN Creatinine Est Cr Clr Drug Dosing eGFR BUN/Creatinine Ratio Glucose POC Glucose 147 H 150 H Estimat Average Glucose Hemoglobin A1c Lactate Calcium Phosphorus Magnesium Total Bilirubin AST ALT Alkaline Phosphatase C-Reactive Protein Total Protein Albumin Globulin Albumin/Globulin Ratio Procalcitonin Urine Color Urine Appearance Urine pH Ur Specific [place] Urine Protein Urine Glucose (UA) Urine Ketones Urine Blood Urine Nitrite Urine Bilirubin Urine Urobilinogen Ur Leukocyte Esterase Urine WBC (Auto) Urine RBC (Auto) U Hyaline Cast (Auto) U Epithel Cells (Auto) Urine Bacteria (Auto) Hyaline Casts Urine Comment Nasal Screen MRSA (PCR) Random Vancomycin Hepatitis C Ab Screen SARS-CoV-2, RNA, NAAT Diagnostic Findings Foot CT 01/09/25 07:45 CT foot LT wo con CLINICAL HISTORY: pain, recent surgery COMPARISON STUDY: X-ray of 01/03/2025 FINDINGS: Skin olamide overlie the Achilles tendon and there is a small amount of soft tissue gas adjacent to the Achilles tendon. There is interval transmetatarsal amputation. No other fracture or dislocation seen. No evidence of active osteomyelitis seen. There is a 3 x 1 x 1 cm collection of fluid and a small amount of gas just anterior to the distal aspect of the remaining third and fourth metatarsals. There is scattered soft tissue gas anterior to the other remaining metatarsals. IMPRESSION: 1. Interval postoperative changes. 2. Nonspecific soft tissue fluid collection adjacent to the transmetatarsal amputation site. Differential diagnosis includes postoperative seroma, hematoma, and developing abscess. ACT 112: Negative or not required by law. Electronically signed by: Prabhu Cordova M.D. 01/09/2025 9:11 AM Foot X-Ray 01/09/25 07:45 XR foot LT 2V CLINICAL HISTORY: pain, recent surgery COMPARISON: 01/03/2025 FINDINGS: There is interval transmetatarsal amputation. No other fracture or dislocation seen. No evidence of osteomyelitis seen. Skin olamide are present posteriorly. There are severe atherosclerotic calcifications. IMPRESSION: No acute osseous findings. ACT 112: Negative or not required by law. Electronically signed by: Prabhu Cordova M.D. 01/09/2025 8:49 AM Chest X-Ray 01/09/25 11:01 XR chest 1V portable CLINICAL HISTORY: concern for infection, recent hospitalization COMPARISON STUDY: Chest radiograph October 23, 2024. Chest CT October 24, 2024. FINDINGS: Median sternotomy wires, left subclavian pacer and dual lumen right internal jugular central venous catheter remain in place. There is a trace left pleural effusion. There is no pneumothorax. Linear right infrahilar and perihilar densities favor atelectasis or scarring. Cardiomegaly is unchanged. There is no radiographic evidence for pulmonary edema. Mild left lower lung interstitial thickening is unchanged. IMPRESSION: 1. Cardiomegaly without evidence for pulmonary edema. Trace left pleural effusion. 2. Mild left lower lung interstitial thickening, similar to prior exam. 3. No definite consolidation to suggest pneumonia. ACT 112: Negative or not required by law. Electronically signed by: Tyorne Pearson M.D. 01/09/2025 11:20 AM Ankle Brachial Index 01/09/25 16:03 Clinical history: Peripheral vascular disease Technique: Ankle-brachial index measurements were obtained Findings: The right ankle-brachial index is diminished at 0.66 The left ANASTASIIA could not be obtained as the left ankle arteries were not compressible Impression: 1. Diminished right ANASTASIIA, indicative of moderate severity peripheral arterial disease 2. Inability to obtain a left ANASTASIIA due to noncompressible vessels ACT 112: Positive. There are findings on this exam that require communication between the performing entity and the patient following Patient Test Result Information Act ([place] ACT 112) guidelines. Electronically signed by Mak Park 01-09-2025 7:46 PM Medications Administered Current Inpatient Medications Acetaminophen (Acetaminophen 325 Mg Tab) 650 mg PO Q4H PRN PRN Reason: Pain or Fever Stop: 02/08/25 12:19 Last Admin: 01/09/25 13:45 Dose: 650 mg Acetaminophen (Acetaminophen 500 Mg Tab) 500 mg PO Q8H [facility] Stop: 02/08/25 12:19 Last Admin: 01/10/25 04:27 Dose: 500 mg Amlodipine Besylate (Amlodipine Besylate 5 Mg Tab) 5 mg PO QAM ESTHER Stop: 02/09/25 08:59 Last Admin: 01/10/25 08:28 Dose: 5 mg Aspirin (Aspirin 81 Mg Ectab) 81 mg PO DAILY ESTHER Stop: 02/09/25 08:59 Last Admin: 01/10/25 08:28 Dose: 81 mg Atenolol (Atenolol 50 Mg Tablet) 50 mg PO QAM ESTHER Stop: 02/09/25 08:59 Last Admin: 01/10/25 08:28 Dose: 50 mg Atorvastatin Calcium (Atorvastatin 40 Mg Tab) 80 mg PO HS ESTHER Stop: 02/08/25 20:59 Last Admin: 01/09/25 21:41 Dose: 80 mg Clopidogrel Bisulfate (Clopidogrel Bisulfate 75 Mg Tab) 75 mg PO HS ESTHER Stop: 02/08/25 20:59 Last Admin: 01/09/25 21:41 Dose: 75 mg Dextrose (Dextrose 50% 50 Ml Syringe) 25 - 50 ml IV UD PRN; Protocol PRN Reason: Hypoglycemia Protocol Stop: 02/08/25 12:19 Docusate Sodium (Docusate Sodium 100 Mg Cap) 100 mg PO DAILY PRN PRN Reason: Constipation Stop: 02/08/25 12:19 Epoetin Manuel (Epoetin Manuel 20,000 Units/Ml Vial) 20,000 units IV ONE ONE Stop: 01/11/25 07:01 Gabapentin (Gabapentin 600 Mg Tab) 600 mg PO TID ESTHER Stop: 02/08/25 13:59 Last Admin: 01/10/25 08:28 Dose: 600 mg Glucagon (Glucagon For Inj 1 Mg Vial) 1 mg SQ UD PRN; Protocol PRN Reason: Hypoglycemia Protocol Stop: 02/08/25 12:19 Glucose (Glucose 40% Gel 15 Gm Tube) 15 - 30 gm PO UD PRN; Protocol PRN Reason: Hypoglycemia Protocol Stop: 02/08/25 12:19 Glucose (Glucose 10 Tab/Tube) 4 - 8 tab PO UD PRN; Protocol PRN Reason: Hypoglycemia Protocol Stop: 02/08/25 12:19 Heparin Sodium (Porcine) (Heparin Sod 5,000 Unit/0.5 Ml Vial) 5,000 units SQ Q8 [facility] Stop: 02/08/25 20:59 Last Admin: 01/10/25 05:56 Dose: 5,000 units Ertapenem (Invanz 500mg) 500 mg in 5 mls @ 2 mls/min IV Q24H [facility] Stop: 01/17/25 09:29 Sodium Chloride (Nss) 1,000 mls @ 0 mls/hr IV .Q0M PRN PRN Reason: For Hemodialysis Use ONLY Stop: 01/11/25 12:59 Insulin Aspart (Insulin Aspart Per Unit Charge) 0 units SC ACHS ESTHER Stop: 02/08/25 12:19 Last Admin: 01/10/25 08:27 Dose: Not Given Insulin Glargine (Lantus Per Unit Charge) 0 - 20 units SQ DAILY ESTHER Stop: 02/09/25 08:59 Last Admin: 01/10/25 08:29 Dose: 10 units Lactobacillus Acidophilus (Advanced Probiotic 625 Mg Capsule) 1,250 mg PO DAILY ESTHER Stop: 02/09/25 08:59 Last Admin: 01/10/25 08:28 Dose: 1,250 mg Melatonin (Melatonin 3 Mg Tab) 3 mg PO HS PRN PRN Reason: Sleep Stop: 02/08/25 12:19 Miscellaneous (Carbohydrates For Hypoglycemia ) 15 - 30 gm PO UD PRN PRN Reason: Hypoglycemia Protocol Stop: 02/08/25 12:19 Miscellaneous Information (Vancomycin Consult Active) 1 each N/A UD PRN PRN Reason: Consult Stop: 02/08/25 10:50 Morphine Sulfate (Morphine Sulfate 4 Mg/Ml 1 Ml Carp\Vial) 3 mg IV Q4H PRN PRN Reason: Severe Pain (Scale 7, 8, 9,10) Stop: 01/23/25 12:19 Last Admin: 01/09/25 21:39 Dose: 3 mg Ondansetron HCl (Ondansetron Inj 2 Mg/Ml 2 Ml Vial) 4 mg IV Q6H PRN PRN Reason: Nausea Stop: 02/08/25 12:19 Oxycodone HCl (Oxycodone Hcl Soln 5 Mg/5 Ml Udc) 5 mg PO Q6H PRN PRN Reason: Moderate Pain (Scale 4, 5, 6) Stop: 01/23/25 12:19 Last Admin: 01/10/25 08:29 Dose: 5 mg Polyethylene Glycol (Polyethylene (Miralax) 17 Gm Pack) 17 gm PO DAILY PRN PRN Reason: Constipation Stop: 02/08/25 12:19 Last Admin: 01/09/25 21:39 Dose: 17 gm Torsemide (Torsemide 100 Mg Tab) 100 mg PO DAILY [facility] Stop: 02/09/25 08:59 Last Admin: 01/10/25 08:30 Dose: 100 mg Vitamin D (Cholecalciferol 25 Mcg (1000 Units) Tab) 25 mcg PO [id number] [facility] Stop: 02/08/25 12:29 Last Admin: 01/09/25 16:20 Dose: 25 mcg
--- NOTE | 2025-01-10 09:50 | Infectious Disease Consult ---
Date of Service January 10, 2025 Telehealth Information I performed this visit using a real-time telehealth connection between my location and the patients location ([facility]). After connecting through interactive tele-video, patient was identified by name and date of and/or wristband check.Patient (or authorized healthcare market survey representative) was informed that this was a telemedicine visit and it was being conducted confidentially over secure lines. My office door was closed and no one else was present in the room with me.Patient (or authorized healthcare market survey representative) provided consent to proceed with the visit, expressed an understanding of privacy and security of the telemedicine visit, and gave permission to have a hospital market survey representative in the room in order to assist with the visit and to conduct portions of the visit, as needed. I informed the patient (or authorized healthcare market survey representative) that I reviewed their record and presented the opportunity for them to ask any questions regarding the visit today. The patient agreed to participate. Left foot infection and abscess History of Present Illness Allergies Allergy/AdvReac Type Severity Reaction Status Date / Time daptomycin Allergy Rash Verified 10/10/24 09:48 Home Medications Medication Instructions Recorded Confirmed Type atenolol 50 mg tablet 50 mg PO QAM 03/07/20 01/09/25 History insulin aspart U-100 100 unit/mL 1 sliding scale dose subcut UD 03/07/20 01/09/25 History (3 mL) subcutaneous pen (Novolog FlexPen U-100 Insulin aspart) insulin glargine 100 unit/mL (3 30 unit subcut QAM 03/07/20 01/09/25 History mL) subcutaneous pen (Basaglar KwikPen U-100 Insulin) cholecalciferol (vitamin D3) 25 25 mcg PO .3X WEEK 11/01/21 01/09/25 History mcg (1,000 unit) tablet (Vitamin D3) acetaminophen 500 mg tablet 500 - 1,000 mg PO UD PRN Pain 10/10/24 01/09/25 History torsemide 100 mg tablet 100 mg PO DAILY 10/10/24 01/09/25 History aspirin 81 mg tablet,delayed 81 mg PO DAILY #30 tabs 11/08/24 01/09/25 Rx release clopidogrel 75 mg tablet 75 mg PO HS #30 tabs 11/08/24 01/09/25 Rx gabapentin 600 mg tablet 600 mg PO TID #30 tabs 11/08/24 01/09/25 Rx lidocaine 5 % topical patch 1 patch transdermal QAM #15 ea 11/08/24 01/09/25 Rx cephalexin 500 mg capsule 500 mg PO QID 7 days #28 caps 01/03/25 01/09/25 Rx amlodipine 5 mg tablet 5 mg PO QAM 01/09/25 01/09/25 History atorvastatin 80 mg tablet 80 mg PO HS 01/09/25 01/09/25 History docusate sodium 100 mg capsule 100 mg PO BID PRN Constipation 01/09/25 01/09/25 History oxycodone 5 mg/5 mL oral solution 2.5 mg PO Q6H PRN Pain, Severe 01/09/25 01/09/25 History Patient History Medical History PAD (peripheral artery disease) RIGHT: S/P R AERIAL GUNNER SUPERINTENDENT endarterectomy, R SFA/pop angioplasty/stenting, and R peroneal angioplasty by Dr. Loco on 03/13/2017 S/P R PT/peroneal angioplasty and R great toe amputation 05/03/[address] Loco. S/P R great toe amputation debridement 05/06/[address] Loco. S/P R LE angiogram 05/31/[address] Enrique. S/P R SFA ALEKS-angioplasty 07/04/[address] Enrique S/P REIA stent, R SFA/pop lithotripsy/angioplasty (for occlusion), R PT/peroneal angioplasty by on 07/08/24. LEFT: S/P L AERIAL GUNNER SUPERINTENDENT/DFA Endarterectomy and L SFA stent by Dr. Loco on 09/04/14 S/P L SFA/pop angioplasty by Dr. Page on 06/26/20 S/P L EIA stenting, L pop lithotripsy, and L PT/peroneal angioplasty by Dr. Enrique on 05/31/21 S/P L hallux amputation 07/01/[address] Aguilar S/P L 1st ray amputation 08/08/[address] Aguilar. Amputation of left great toe Osteomyelitis Hallux abducto valgus, bilateral Amputated great toe of right foot Diabetes mellitus with neuropathy Diabetic peripheral neuropathy Callus Surgical History History of revascularization procedure of lower extremity Social History Smoking Status: Former smoker Tobacco Type: Cigarettes and Smokeless Tobacco (Dip or Chew) Do You Dip or Chew Tobacco: Yes; Hx Alcohol Use: No Hx Substance Use: No Preferred Language: Japanese Communication Ability: Effective Visual Impairment: Limited Hearing Ability: Normal Idea Worker Required: No Beliefs That Will Affect Care: None marital status: Current Living Situation: Spouse Current Living Situation Comment: home with current occupational status: employed 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 Feels Safe at Home: Yes Safety Concerns: Feels Safe At This Time Diet: diabetic caffeine: Yes Physical Activity Frequency: Daily Do you think of yourself as: straight/heterosexual Gender Identity: Male Assistive Devices: Special Shoe and Walker Results & Data Vital Signs (Past 12 Hours) Vital Signs Temp Pulse Pulse Resp BP BP Pulse Ox 01/10/25 08:26 112/69 01/10/25 08:13 36.8 C 71 16 99 01/10/25 07:37 69 01/10/25 04:27 37.0 C 70 18 134/78 94 01/09/25 23:32 01/09/25 23:26 74 01/09/25 23:04 36.8 C 64 18 151/72 H 91 O2 Del Method 01/10/25 08:26 01/10/25 08:13 Room Air 01/10/25 07:37 01/10/25 04:27 Room Air 01/09/25 23:32 Room Air 01/09/25 23:26 01/09/25 23:04 Room Air
[2025-01-10] MEDS: OPTIRAY 320 125ml IV ONE (10:04)
[2025-01-10] MEDS: ERTAPENEM 500MG 500 MG/5 ML SYR IV SCH (10:27)
--- NOTE | 2025-01-10 10:45 | CT Scan Report ---
CT ang AA ag gao yaz CLINICAL HISTORY: PAD, tissue loss COMPARISON STUDY: None FINDINGS: Vascular findings: There are severe diffuse atherosclerotic calcifications. No abdominal aortic aneur ysm or significant aortic luminal narrowing seen. Celiac, superior mesenteric, inferior mesenteric, a nd bilateral renal arteries are patent. Common, internal, and external iliac and common femoral arter ies show no significant narrowing or occlusion. The common femoral artery stents are patent. Right lower extremity: Deep femoral artery is patent. There is mild focal narrowing at the origin of the right superficial femoral artery. The stent proximally at the right SFA is patent. There is sever e focal narrowing proximal right SFA just distal to the proximal stent. There is mild multifocal narr owing at the right SFA otherwise. The stent at the mid to distal right SFA is patent. Evaluation of t he right popliteal artery and iwmbz-uym-ljaq arteries is difficult due to heavy calcification. Right popliteal artery demonstrates at least moderate multifocal narrowing. There is diffuse multifocal at least moderate narrowing at the oedql-gkg-tonq arteries with possible occlusion of the anterior and p osterior tibial and peroneal arteries at the calf. Left lower extremity: Deep femoral artery is patent. Stent proximally at the left SFA is patent. Ther e is at least moderate multifocal narrowing distally at the left SFA and popliteal arteries. Evaluati on of the lplpa-oem-xepn arteries is limited by heavy calcification. There is diffuse multifocal at l east moderate narrowing at the below knee arteries with possible occlusion of the anterior and vice president of instruction ior tibial and peroneal arteries at the calf. Stable transmetatarsal amputation compared with left fo ot CT of 01/09/2025. Grossly stable soft tissue fluid collection, better seen on the prior foot CT. G rossly stable soft tissue gas. ABDOMEN: There are a few tiny gallstones without evidence of acute cholecystitis. Otherwise the liver , spleen, pancreas, and adrenal glands are unremarkable. There is a 2.2 cm round finding with Hounsfi eld density of 27 at the right lower kidney. It likely represents cysts. There is a likely tiny cyst at the left kidney. Pelvis: Prostate is mildly enlarged. Urinary bladder is mildly distended. There is a small amount of gas in the urinary bladder. Suggest clinical correlation for recent bladder instrumentation. There is moderate retained stool. No bowel inflammation or obstruction seen. Normal appendix. No free fluid o r free air. No enlarged adenopathy. There is mild degenerative change of the lumbar spine and hips. IMPRESSION: 1. No acute findings. 2. Likely a small cyst at the right kidney. Suggest renal ultrasound for confirmation. 3. Abnormal CTA as described. ACT 112: Negative or not required by law. Electronically signed by: Prabhu Cordova M.D. 01/10/2025 10:43 AM
[2025-01-10] MEDS ORDERED: MIDAZOLAM HCL 1 MG/ML 2ML VIAL ONE ×2 (10:47→16:18)
[2025-01-10] MEDS ORDERED: PROPOFOL IV EMULSION 10 MG/ML 20 ML VIAL IV ONE ×3 (10:47→17:00)
--- NOTE | 2025-01-10 10:55 | Pharmacy Report ---
Pharmacy PK ABX Note - Date of Service January 10, 2025 - Assessment and Plan Assessment 01/10: * Random vancomycin level this AM was ~19.9 mcg/ml - no dialysis scheduled for today, will remain therapeutic for 24 hours. Plan to redose with vancomycin tomorrow after dialysis session 01/09: * 64 year old M receiving vancomycin/ertapenem for L foot cellulitis. PMHx significant for ESRD on HD, aortic valve replacement, T2DM. Underwent L TMA on 01/06/25. Hx of 2nd/3rd toe amputations in the past d/t chronic osteomyelitis and also amputations of right finger. Hx MDRO including ESBL, morganella, enterobacter. Foot xray neg for osteomyelitis. Plan Vancomycin * Hold vancomycin dosing today, no dialysis scheduled today * Will redose again after dialysis tomorrow Pharmacy will continue to follow and will adjust dose/frequency as necessary. Thank you. Pharmacy has transitioned to AUC monitoring for vancomycin. AUC/KEVIN is the preferred PK/PD target and is associated with decreased risk of nephrotoxicity compared to traditional trough targets.
--- NOTE | 2025-01-10 11:48 | Hospitalist Progress Note ---
Date of Service January 10, 2025 Assessment & Plan (1) Cellulitis of foot, left: (2) Foot pain, left: (3) Status post transmetatarsal amputation of left foot: (4) End stage renal disease on dialysis: (5) Diabetic peripheral neuropathy associated with type 2 diabetes mellitus: (6) Generalized weakness: Plan Patient is a 64-year-old male who has a significant past medical history of CAD status post CABG x 2, cardiac pacemaker in situ, history of bicuspid aortic valve status post aortic valve replacement, ESRD on HD, history of steal syndrome for AVF, PAD [with history of REIA stent, R SFA/pop lithotripsy/angioplasty for occlusion, R PT/peroneal angioplasty on 07/17], insulin-dependent T2DM, diabetic neuropathy, history of CVA, history of PE who presents to the ED secondary to worsening left foot pain x 3 to 4 days. Pt underwent L TMA on 01/06/[address] Aguilar of [facility] Recently underwent left 2nd and 3rd toe amputations by Dr. Veronica Webster 2/2 chronic osteomyelitis along with amputation of tip of right finger 4/5 distal tip amputations. Left foot abscess/Cellulitis--POA S/P Left TMA on 01/06 Peripheral vascular disease Probable Post op infection H/O MSSA bacteremia -- L foot CT Nonspecific soft tissue fluid collection adjacent to the transmetatarsal amputation site. Differential diagnosis includes postoperative seroma, hematoma, and developing abscess. --Ankle-brachial index: Diminished right ANASTASIIA, indicative of moderate severity peripheral arterial disease. Inability to obtain a left ANASTASIIA due to noncompressible vessels --CTA AA runoff: Reviewed --Normal lactate levels --Blood culture: Negative to date Empirically on vancomycin, ertapenem Appreciate podiatry, infectious disease, vascular surgery input Plan for I&D today Pain control as needed Will defer need for any intervention for peripheral vascular disease to vascular surgery Urinary tract infection--POA --Urine culture pending Empirically on ertapenem ESRD on HD On Thursday schedule Appreciate nephrology input He has permcath in place LACW Plan for dialysis tomorrow T2DM insulin dependent with neuropathy HbA1c 6.7 Continue insulin per protocol Monitor blood glucose levels CAD hx of CABG Bicuspid AV s/p AVR Cardiac pacemaker insitu HTN continue ASA, Plavix, Statin, atenolol, amlodipine Currently denies any anginal symptoms Hx of CVA continue asa, plavix Generalized deconditioning PT/OT evaluation when appropriate May need rehab placement DVT Px: SQ Heparin, hx of PE in 2010 tx with warfarin x 3 months Code Status Full Code Admission and Anticipated Discharge Date Admission Date: January 09, 2025 Subjective Patient is seen and examined at bedside He admits to have left foot pain Also reports dysuria but denies any hematuria Denies any history of chest pain, dyspnea, nausea, vomiting No other complaints Plan for I&D left foot today Review of Systems Review of Systems: All systems reviewed & are unremarkable except as noted in Subjective Physical Exam Physical Exam: Physical Exam: Vitals signs as noted above General Appearance:Moderately built and nourished, no apparent distress Head: normocephalic, Atraumatic Eyes: normal inspection, EOMI Neck: supple, Trachea midline Respiratory/Chest: Decreased breath sounds, basal crackles, +Catheter, No accessory muscle use Cardiovascular: S1, S2, + murmur Abdomen/GI:Soft, Non tender, Bowel sounds present Extremities/Musculoskeletal:normal inspection, L foot partial amputation,+ edema, erythema, sutures Neurologic/Psych:AAOX3, grossly no focal neurological deficits Skin: normal color, warm Results & Data Results & Data Vital Signs (Past 12 Hours) Vital Signs Temp Pulse Pulse Resp BP BP Pulse Ox 01/10/25 11:38 36.8 C 71 16 150/78 H 99 01/10/25 08:26 112/69 01/10/25 08:13 36.8 C 71 16 99 01/10/25 07:37 69 01/10/25 04:27 37.0 C 70 18 134/78 94 O2 Del Method 01/10/25 11:38 Room Air 01/10/25 08:26 01/10/25 08:13 Room Air 01/10/25 07:37 01/10/25 04:27 Room Air Laboratory Results Short CBC 01/10/25 Range/Units 05:59 WBC 17.41 H (4.8-10.8) K/ul Hgb 8.1 L (14.0-18.0) g/dL Hct 24.2 L (42.0-52.0) % Plt Count 278 (130-400) K/uL BMP 01/10/25 05:59 Sodium 135 L Potassium 4.1 Chloride 96 L Carbon Dioxide 28 BUN 29 H Creatinine 4.52 H* D Glucose 134 H Calcium 9.0 Urine 01/09/25 Range/Units Unknown Urine Color Dark Yellow Urine Appearance Turbid A (Clear) Urine pH 6.5 (4.5-7.5) Ur Specific Arabi 1.015 (1.000-1.030) Urine Protein 3+ H (Negative) Urine Glucose (UA) Negative (Negative)
--- NOTE | 2025-01-10 15:56 | History & Physical Bridge Note ---
Date of Service January 10, 2025 History & Physical Bridge Note I have examined the patient, reviewed the History & Physical and in the interval since the performance of the History & Physical I have noted the following changes of clinical significance: no changes noted
--- NOTE | 2025-01-10 16:01 | Anesthesiology Consultation ---
Date of Service January 10, 2025 Assessment & Plan Chart Review Chart Review: Acceptable Risk for Surgery and Patient NOT seen in Pre Admission Testing Consults Requested none ASA ASA4 Proposed Anesthesia Anesthesia Type: MAC Risk / Benefits Reviewed With: PT / POA / Parent / Guardian, Accepts Plan and Informed Consent Obtained History Surgery Operation Date: 01/10/25 07:00 Proposed Procedures p Incision and Drainage Left Foot - Shivani Pritchett DPM Height/Weight Height: 6 ft 1 in Weight: 96.1 kg Allergies Allergy/AdvReac Type Severity Reaction Status Date / Time daptomycin Allergy Rash Verified 10/10/24 09:48 Medications Home Medications Medication Instructions Recorded Confirmed Last Taken atenolol 50 mg tablet 50 mg PO QAM 03/07/20 01/09/25 07/19/21 insulin aspart U-100 100 unit/mL 1 sliding scale dose subcut UD 03/07/20 01/09/25 07/19/21 12:00 (3 mL) subcutaneous pen (Novolog 10 units FlexPen U-100 Insulin aspart) insulin glargine 100 unit/mL (3 30 unit subcut QAM 03/07/20 01/09/25 07/19/21 mL) subcutaneous pen (Basaglar KwikPen U-100 Insulin) cholecalciferol (vitamin D3) 25 25 mcg PO .3X WEEK 11/01/21 01/09/25 Unknown mcg (1,000 unit) tablet (Vitamin D3) acetaminophen 500 mg tablet 500 - 1,000 mg PO UD PRN Pain 10/10/24 01/09/25 Unknown torsemide 100 mg tablet 100 mg PO DAILY 10/10/24 01/09/25 Unknown aspirin 81 mg tablet,delayed 81 mg PO DAILY #30 tabs 11/08/24 01/09/25 Unknown release clopidogrel 75 mg tablet 75 mg PO HS #30 tabs 11/08/24 01/09/25 Unknown gabapentin 600 mg tablet 600 mg PO TID #30 tabs 11/08/24 01/09/25 Unknown lidocaine 5 % topical patch 1 patch transdermal QAM #15 ea 11/08/24 01/09/25 Unknown cephalexin 500 mg capsule 500 mg PO QID 7 days #28 caps 01/03/25 01/09/25 Unknown amlodipine 5 mg tablet 5 mg PO QAM 01/09/25 01/09/25 Unknown atorvastatin 80 mg tablet 80 mg PO HS 01/09/25 01/09/25 Unknown docusate sodium 100 mg capsule 100 mg PO BID PRN Constipation 01/09/25 01/09/25 Unknown oxycodone 5 mg/5 mL oral solution 2.5 mg PO Q6H PRN Pain, Severe 01/09/25 01/09/25 Unknown Active Medications Generic Name Dose Route Start Last Admin Trade Name Freq PRN Reason Stop Dose Admin Acetaminophen 650 mg 01/09/25 12:20 01/09/25 13:45 Acetaminophen 325 Mg Tab PO 02/08/25 12:19 650 mg Q4H PRN Administration Pain or Fever Acetaminophen 500 mg 01/09/25 12:20 01/10/25 12:22 Acetaminophen 500 Mg Tab PO 02/08/25 12:19 500 mg Q8H ESTHER Administration Amlodipine Besylate 5 mg 01/10/25 09:00 01/10/25 08:28 Amlodipine Besylate 5 Mg Tab PO 02/09/25 08:59 5 mg QAM ESTHER Administration Aspirin 81 mg 01/10/25 09:00 01/10/25 08:28 Aspirin 81 Mg Ectab PO 02/09/25 08:59 81 mg DAILY ESTHER Administration Atenolol 50 mg 01/10/25 09:00 01/10/25 08:28 Atenolol 50 Mg Tablet PO 02/09/25 08:59 50 mg QAM ESTHER Administration Atorvastatin Calcium 80 mg 01/09/25 21:00 01/09/25 21:41 Atorvastatin 40 Mg Tab PO 02/08/25 20:59 80 mg HS ESTHER Administration Clopidogrel Bisulfate 75 mg 01/09/25 21:00 01/09/25 21:41 Clopidogrel Bisulfate 75 Mg Tab PO 02/08/25 20:59 75 mg HS ESTHER Administration Gabapentin 600 mg 01/09/25 14:00 01/10/25 14:17 Gabapentin 600 Mg Tab PO 02/08/25 13:59 600 mg TID ESTHER Administration Heparin Sodium (Porcine) 5,000 units 01/09/25 21:00 01/10/25 14:17 Heparin Sod 5,000 Unit/0.5 Ml Vial SQ 02/08/25 20:59 5,000 units Q8 ESTHER Administration Ertapenem 500 mg in 5 mls @ 2 mls/min 01/10/25 09:30 01/10/25 10:27 Invanz 500mg IV 01/17/25 09:29 2 mls/min Q24H ESTHER Administration Insulin Aspart 0 units 01/09/25 12:20 01/10/25 12:23 Insulin Aspart Per Unit Charge SC 02/08/25 12:19 Not Given ACHS ESTHER Insulin Glargine 0 - 20 units 01/10/25 09:00 01/10/25 08:29 Lantus Per Unit Charge SQ 02/09/25 08:59 10 units DAILY ESTHER Administration Lactobacillus Acidophilus 1,250 mg 01/10/25 09:00 01/10/25 08:28 Advanced Probiotic 625 Mg Capsule PO 02/09/25 08:59 1,250 mg DAILY ESTHER Administration Morphine Sulfate 3 mg 01/09/25 12:20 01/10/25 12:22 Morphine Sulfate 4 Mg/Ml 1 Ml Carp\Vial IV 01/23/25 12:19 3 mg Q4H PRN Administration Severe Pain (Scale 7, 8, 9,10) Oxycodone HCl 5 mg 01/09/25 12:20 01/10/25 08:29 Oxycodone Hcl Soln 5 Mg/5 Ml Udc PO 01/23/25 12:19 5 mg Q6H PRN Administration Moderate Pain (Scale 4, 5, 6) Polyethylene Glycol 17 gm 01/09/25 12:20 01/09/25 21:39 Polyethylene (Miralax) 17 Gm Pack PO 02/08/25 12:19 17 gm DAILY PRN Administration Constipation Torsemide 100 mg 01/10/25 09:00 01/10/25 08:30 Torsemide 100 Mg Tab PO 02/09/25 08:59 100 mg DAILY ESTHER Administration Vitamin D 25 mcg 01/09/25 12:30 01/09/25 16:20 Cholecalciferol 25 Mcg (1000 Units) Tab PO 02/08/25 12:29 25 mcg MoWeFr@0900 ESTHER Administration NPO Date Last Intake of Fluids: 01/10/25 Time Last Intake of Fluids: 14:00 Last Intake of Fluids Comment: sip with meds Date Last Intake of Solids: 01/09/25 Time Last Intake of Solids: 23:59 Past Medical History Medical History PAD (peripheral artery disease) RIGHT: S/P R WASH WORKER endarterectomy, R SFA/pop angioplasty/stenting, and R peroneal angioplasty by Dr. Loco on 03/13/2017 S/P R PT/peroneal angioplasty and R great toe amputation 05/03/[address] Loco. S/P R great toe amputation debridement 05/06/[address] Loco. S/P R LE angiogram 05/31/[address] Enrique. S/P R SFA ALEKS-angioplasty 07/04/[address] Enrique S/P REIA stent, R SFA/pop lithotripsy/angioplasty (for occlusion), R PT/peroneal angioplasty by on 07/08/24. LEFT: S/P L WASH WORKER/DFA Endarterectomy and L SFA stent by Dr. Loco on 09/04/14 S/P L SFA/pop angioplasty by Dr. Page on 06/26/20 S/P L EIA stenting, L pop lithotripsy, and L PT/peroneal angioplasty by Dr. Enrique on 05/31/21 S/P L hallux amputation 07/01/[address] Aguilar S/P L 1st ray amputation 08/08/[address] Aguilar. Amputation of left great toe Osteomyelitis Hallux abducto valgus, bilateral Amputated great toe of right foot Diabetes mellitus with neuropathy Diabetic peripheral neuropathy Callus Exercise / Class Metabolic Activity II 4-5 Yardwork/Stairs/Walk up hill Past Surgical History Surgical History History of revascularization procedure of lower extremity Past Anesthesia History No Hx of Anesthesia Complications and No Family Hx of Anesthesia Complications History of PONV No Hx of PONV and No Hx of Motion Sickness Social History Smoking Status: Former smoker tobacco type: smokeless tobacco Do You Dip or Chew Tobacco: Yes Hx Alcohol Use: No Alcohol type: beer alcohol intake frequency: other Hx Substance Use: No Physical Exam Vital Signs Last Vital Signs Temp 36.8 C 01/10/25 15:27 Pulse 73 01/10/25 15:27 Resp 18 01/10/25 15:27 BP 142/58 H 01/10/25 15:27 Pulse Ox 94 01/10/25 15:27 O2 Del Method Room Air 01/10/25 15:27 ENMT Mouth: no dentition abnormality Thyromental Distance: > or= 3.5 Finger Breadths Mallampati Class: II Neck normal visual inspection Respiratory normal respiratory effort Auscultation: lungs clear to auscultation bilaterally Cardiovascular Rate/Rhythm: regular rate and regular rhythm Chest (Breasts) Chest: + vascular access device or port Musculoskeletal Extremities: + amputation noted (partial left foot amputation) Psychiatric Orientation: alert Testing Laboratory Results 01/10/25 05:59 01/10/25 05:59 Hemoglobin A1c 6.7 % (4.5-5.6) H 01/10/25 05:59 Urine Color Dark Yellow 01/09/25 Unknown Urine Appearance Turbid (Clear) A 01/09/25 Unknown Urine pH 6.5 (4.5-7.5) 01/09/25 Unknown Ur Specific Owen 1.015 (1.000-1.030) 01/09/25 Unknown Urine Protein 3+ (Negative) H 01/09/25 Unknown Urine Glucose (UA) Negative (Negative) 01/09/25 Unknown Urine Ketones Trace (Negative) H 01/09/25 Unknown Urine Nitrite Negative (Negative) 01/09/25 Unknown Ur Leukocyte Esterase 3+ (Negative) H 01/09/25 Unknown Urine WBC (Auto) >50 /hpf (0-5) H 01/09/25 Unknown Urine RBC (Auto) 3-5 /hpf (0-2) H 01/09/25 Unknown U Hyaline Cast (Auto) 6-10 /lpf (0-2) H 01/09/25 Unknown U Epithel Cells (Auto) 3-5 /hpf (0-2) H 01/09/25 Unknown Urine Bacteria (Auto) 4+ (None Seen) H 01/09/25 Unknown 01/09/25 Unknown Urine Culture - Preliminary Urine,Straight Cath Pin-point growth present, reincubating. 01/09/25 07:58 Aerobic Blood Culture - Preliminary Blood No growth in Aerobic bottle after 24 hours. Anaerobic Blood Culture - Preliminary No growth in Anaerobic bottle after 24 hours. 01/09/25 08:04 Aerobic Blood Culture - Preliminary Blood No growth in Aerobic bottle after 24 hours. Anaerobic Blood Culture - Preliminary No growth in Anaerobic bottle after 24 hours. 01/10/25 01/10/25 01/10/25 15:28 11:23 08:09 POC Glucose 103 H 129 H 150 H 01/10/25 07:19 POC Glucose 147 H
[2025-01-10] MEDS ORDERED: LIDOCAINE 2% 2 ML VIAL/AMP(20MG/ML) INFIL ONE (16:18)
[2025-01-10] MEDS ORDERED: KETAMINE HCL 10MG/ML SYR ONE (16:59)
[2025-01-10] MEDS: BUPIVACAINE 0.5 % 5 MG/1 ML MPF 30ML VIAL ONE (17:10)
--- NOTE | 2025-01-10 17:35 | Post Operative Brief Note ---
Immediate Post Op Note Date of Surgery January 10, 2025 Pre & Post Diagnosis Operation Date: 01/10/25 07:00 Pre-Op Diagnosis: Left foot infection and abscess Post-Op Diagnosis: Left foot infection and abscess I identified the patient and participated in the time-out.: Yes Procedure Operation Date: 01/10/25 07:00 Actual Procedures p Incision and Drainage Left Foot, Bone biopsy(Left) - Shivani Pritchett DPM Surgeon Shivani Pritchett DPM Knockout Worker none Estimated Blood Loss 5 Findings Consistent with Post-Op Diagnosis Consistent with operative note Complications None
--- NOTE | 2025-01-10 17:51 | Operative Report ---
Post Operative Report Pre & Post Diagnosis Operation Date: 01/10/25 07:00 Pre-Op Diagnosis: Left foot infection Post-Op Diagnosis: Left foot infection I identified the patient and participated in the time-out.: Yes Procedure Operation Date: 01/10/25 07:00 Actual Procedures p Incision and Drainage Left Foot, Bone biopsy(Left) - Shivani Pritchett DPM Surgeon Shivani Pritchett DPM Waterproof Coating Machine Tender none Estimated Blood Loss 5 Findings Consistent with Post-Op Diagnosis 5 cc of purulent drainage noted with necrosis of tissue. Specimens Left foot aerobic culture Left foot anaerobic culture Left foot tissue culture Left foot metatarsal 4 and 5 bone culture for micro Left foot metatarsal 4 and 5 bone culture for pathology Indications Patient is a pleasant 64-year-old male that presented to the emergency department over concerns of left foot infection. Patient was admitted over concerns of cellulitis and abscess in the left foot. Patient underwent a transmetatarsal amputation 01/06/2025 at [facility]. Patient states that ever since the procedure there has been persistent pain to the left transmetatarsal site. Patient has extensive vascular disease that has been treated in the past. Patient understands that this is a limb salvage procedure and patient has high risk for a more proximal amputation. Patient understands that this procedure is needed for source control. Patient was scheduled for incision and drainage with bone biopsy of left foot. Vascular surgery and infectious disease were both consulted and are on board for patient care. Appreciate recommendations from both specialties. All questions were answered. All risks and benefits of the procedure were discussed in depth with the patient. Patient wishes to proceed with the procedure. Description of Procedure Following satisfactory preop evaluation the patient was brought into the OR and placed on the OR table in the supine position. MAC sedation was administered by anesthesia. Following sedation the foot was prepped and draped in the usual sterile manner in lower" surgical field. Attention was then directed to the left lateral foot where there was noted to be drainage, erythema, edema and malodor. Using a 15 blade the sutures to the lateral transmetatarsal amputation site were then removed and the incision was made to reopen the flap. Incision was then deepened down to the level of bone. Here to there was noted to be about 5 cc of purulent drainage and necrosis to the proximal tissue. Minimal bleeding was noted during the procedure. At this time anaerobic, aerobic, tissue culture was taken and sent off for microbiology. Next using a Eloina n eedle and ronjono bone biopsy was performed on metatarsal heads 4 and 5. Bone culture was then split in half with cultures being sent to both microbiology and pathology. At this time a pulse learning facilitator was used to flush and irrigate the incision site. The incision was irrigated thoroughly. All nonviable tissue was then debrided and another round of pulse learning facilitator was used. Retention sutures were then applied to the lateral incision via a 3-0 nylon suture in an over and over fashion. A dressing consisting of Betadine soaked Kerlix, ABD pads, Kerlix and Miguel wrap bandage was applied. The patient tolerated anesthesia and the procedure well was transported back to the floor. Orders were written as follows: 1.notified medicine over 22 floor 2.resume all preop medications, orders and diet 3.keep dressing CD[facility] podiatry to change daily 4.nonweightbearing to left lower extremity 5.elevate left foot with pillow under leg I attest to the content of the Intraoperative Record and any orders documented therein. Any exceptions are noted below.
--- NOTE | 2025-01-10 19:05 | Anesthesiology Progress Note ---
Date of Service January 10, 2025 Anesthesia Post Procedure Vital Signs Vital Signs: Temp Pulse Pulse Pulse Resp BP BP 01/10/25 18:40 37.0 C 77 16 165/84 H 01/10/25 18:14 36.4 C L 74 16 159/76 H 01/10/25 18:01 36.6 C 75 16 169/107 H 01/10/25 17:45 77 15 171/67 H 01/10/25 17:35 36.8 C 74 13 164/85 H 01/10/25 17:25 73 19 156/74 H 01/10/25 17:17 36.2 C L 73 14 154/58 H 01/10/25 16:18 01/10/25 15:27 36.8 C 73 18 142/58 H 01/10/25 14:53 01/10/25 14:00 70 01/10/25 11:38 36.8 C 71 16 150/78 H 01/10/25 08:26 112/69 01/10/25 08:13 36.8 C 71 16 01/10/25 07:37 69 01/10/25 04:27 37.0 C 70 18 134/78 01/09/25 23:32 01/09/25 23:26 74 01/09/25 23:04 36.8 C 64 18 151/72 H 01/09/25 19:40 36.7 C 71 18 136/89 Pulse Ox O2 Del Method O2 Flow Rate 01/10/25 18:40 91 Room Air 01/10/25 18:14 91 Room Air 01/10/25 18:01 92 Nasal Cannula 2 01/10/25 17:45 94 Nasal Cannula 2 01/10/25 17:35 94 Nasal Cannula 2 01/10/25 17:25 96 Nasal Cannula 4 01/10/25 17:17 95 Nasal Cannula 4 01/10/25 16:18 96 Nasal Cannula 2 01/10/25 15:27 94 Room Air 01/10/25 14:53 Room Air 01/10/25 14:00 01/10/25 11:38 99 Room Air 01/10/25 08:26 01/10/25 08:13 99 Room Air 01/10/25 07:37 01/10/25 04:27 94 Room Air 01/09/25 23:32 Room Air 01/09/25 23:26 01/09/25 23:04 91 Room Air 01/09/25 19:40 92 Room Air Pain Intensity Left Foot: Pain Intensity: 7 Transfer of Care Handoff Completed per policy Notes Mental Status: alert / awake / arousable Patient Amnestic to Procedure: Yes Nausea / Vomiting: adequately controlled Pain: adequately controlled Airway Patency, RR, SpO2: stable & adequate BP & HR: stable & adequate Hydration State: stable & adequate Anesthetic Complications: no major complications apparent
[2025-01-10] MEDS: DOCUSATE SODIUM 100 MG CAP PO PRN (19:41)
[2025-01-10] MEDS: MELATONIN 3 MG TAB PO PRN (21:48)
[2025-01-11] MEDS ORDERED: SODIUM CHLORIDE 0.9% 1,000 ML IV PRN (07:00)
[2025-01-11 07:04] LABS: Hematocrit (blood only) 25.0 % (42.0-52.0); Hemoglobin 8.4 g/dL (14.0-18.0); Immature Granulocytes # (auto) 0.08 K/uL (0.01-0.20); Immature Granulocytes % (auto) 0.5 %; Mean Corpuscular Hemoglobin 32.4 pg (25.0-34.0); Mean Corpuscular Volume 96.5 fL (80.0-100.0); Platelet Count 299 K/uL (130-400); RDW Standard Deviation 52.4 fL (36.4-46.3); Red Blood Count 2.59 M/uL (4.70-6.10); White Blood Count 15.51 K/ul (4.8-10.8)
--- NOTE | 2025-01-11 07:23 | Podiatry Progress Note ---
Date of Service January 11, 2025 Assessment & Plan (1) Status post transmetatarsal amputation of left foot: (2) Cellulitis of foot, left: (3) Foot pain, left: (4) Surgical wound, non healing: (5) Abscess of left foot: (6) PVD (peripheral vascular disease): (7) Diabetic peripheral neuropathy: (8) Diabetes mellitus with neuropathy: (9) Status post incision and drainage: Plan -All notes, labs, and imaging reviewed -Cultures pending -CT: 1. Interval postoperative changes. 2. Nonspecific soft tissue fluid collection adjacent to the transmetatarsal amputation site. Differential diagnosis includes postoperative seroma, hematoma, and developing abscess. -Dressing: Betadine soaked kerlix, ABD, Kerlix and JEFF bandage. -Vascular surgery consulted. Did discuss with Vascular team and plans for a possible angiogram on Thursday. Appreciate recommendations. -Infectious disease consulted. Appreciate recommendations. -S/P left foot incision and drainage and bone biopsy 01/10/25. White count is trending down. Will continue to monitor closely. - Patient is scheduled for a repeat debridement and delayed primary closure of the left foot 01/12/25. -Patient to be NPO midnight prior to procedure. Admission and Anticipated Discharge Date Admission Date: January 09, 2025 Subjective Patient is a 64 year old male that is s/p left foot incision and drainage and bone biopsy 01/10/25. Patient was resting comfortably in bed this morning. No acute events overnight. No new pedal complaints today. Review of Systems Review of Systems: All systems reviewed & are unremarkable except as noted in Subjective Physical Exam Cardiovascular: DP and PT pulses are non-palpable. Skin: Surgical TMA incision noted to the left foot. Sutures are intact to medial and central surgical site. Minor pain to palpation, edema and drainage noted today. Open post-op site noted to the lateral foot. Granular and necrotic tissue noted to the wound bed. Neurologic: Protective sensation and light touch sensation diminished today. Results & Data Results & Data Vital Signs (Past 12 Hours) Vital Signs Temp Pulse Pulse Resp BP Pulse Ox O2 Del Method 01/11/25 04:38 37.0 C 68 20 175/80 H 96 Nasal Cannula 01/11/25 00:16 37.1 C 81 20 133/76 97 Nasal Cannula 01/10/25 21:56 78 01/10/25 19:45 36.8 C 79 20 151/72 H 95 Room Air 01/10/25 19:30 Room Air O2 Flow Rate 01/11/25 04:38 2 01/11/25 00:16 2 01/10/25 21:56 01/10/25 19:45 01/10/25 19:30
[2025-01-11 07:29] LABS: Anion Gap 15.0 (3-11); Blood Urea Nitrogen 42.0 mg/dl (6-23); Calcium 8.7 mg/dl (8.6-10.3); Carbon Dioxide 23.0 mmol/L (21-32); Chloride 96.0 mmol/L (98-107); Creatinine Clr Calc Pharmacy 15.4 ml/min; Glucose 143.0 mg/dl (70-99(Fasting)); Magnesium 2.0 mg/dl (1.7-2.4); Potassium 4.5 mmol/L (3.5-5.1); Sodium 134.0 mmol/L (136-145)
--- NOTE | 2025-01-11 08:07 | Infectious Disease Progress Nt ---
Date of Service January 11, 2025 Assessment & Plan (1) Abscess of left foot: (2) PVD (peripheral vascular disease): (3) Status post transmetatarsal amputation of left foot: (4) Cellulitis of foot, left: Plan Problems: #L foot osteomyelitis s/p 2nd and 3rd toe amputation (09/2024) c/b injury/dehiscence s/p TMA (01/06/25), c/b soft tissue abscess #T2DM #PAD #Pacemaker in place #MSSA bacteremia 09/2024 thought 2/2 L foot osteomyelitis s/p cefazolin x 6 weeks through 11/25/24. ANI negative Micro: 01/10 L foot tissue cx: pending. GS rare GPCs 01/10 L 4th and 5th metatarsal bone cx: pending. GS rare GPCs 01/10 L foot deep #2 cx: pending. GS rare GPCs 01/10 L foot deep cx: pending. GS rare GPCs 01/09 UCx: pending 01/09 BCx x2: NGTD 11/17 Back wound cx: ESBL Kleb pneumo, Morganella morganii 10/14 R 4th finger tip cx: MSSA, Enterobacer cloacae complex, Cutibacterium avidum, low counts probable skin shazia 10/12 L toe cx: MSSA, Helcococcus kunzii, Anaerococcus vaginalis, mod probable skin shazia 10/12 BCx x2: MSSA in 2/4 bottles 10/10 BCx x2: MSSA in 4/4 bottles Abx: Vanc 01/09 - present Ertapenem 01/09 - present 64 yo M with history of T2DM, diabetic neuropathy, PAD s/p prior revascularizations, CAD s/p CABG x 2, complete heart block s/p pacemaker, bicuspid aortic valve s/p AVR, ESRD on HD, history of steal syndrome for AVF, CVA, PE who presented on 01/09 with worsening L foot pain x 3-4 days, found on C T to have soft tissue fluid collection adjacent to TMA site c/f abscess. Was hospitalized at [facility] 10/10-11/08 with MSSA bacteremia, L foot osteomyelitis s/p L 2nd and 3rd toe amputations, R 4th and 5th finger dry gangrene/osteomyelitis s/p partial amputations. Was seen by Wilda JIM. ANI was negative. He was discharged on cefazolin x 6 weeks through 11/25/24. Pt was recently hospitalized at [facility] 01/04-01/07 due to injuring his L foot at the site of prior amputations. He was seen by his latin teacher Dr. Aguilar and underwent L TMA on 01/06/25. Pt denied fevers, but reported sweats. Has been on Keflex for the last week, which was prescribed at [facility] ER on 01/03 prior to his admission to [facility]. On presentation, pt was afebrile, VSS. Labs showed WBC 22.32, ESR 60, CRP 35.62, procal 2.17. UA with >[address] L foot without contrast showed interval postop changes, nonspecific soft tissue fluid collection adjacent to TMA site for which differential includes seroma, hematoma, developing abscess. L foot XR with no acute osseous findings. Pt was started on vanc and ertapenem. Podiatry was consulted, noted pain to palpation, erythema, and drainage to L lateral foot. Pt taken to the OR on 01/10 for L foot I&D and L metatarsal heads 4 and 5 bone biopsy. Per operative note, incision was deepened down to the level of bone where there was ~5 cc of purulent drainage and necrosis to the proximal tissue. OR cultures pending. Recommendations: - Continue vanc and ertapenem for now - Follow-up OR cultures and will adjust antibiotics accordingly - Follow-up L 4th and 5th metatarsal bone path to assess for osteomyelitis Will continue to follow. Admission and Anticipated Discharge Date Admission Date: January 09, 2025 Subjective Subsequent visit was provided via telemedicine using two-way real-time interactive telecommunication between the patient and the telemedicine provider. For the duration of the visit, the provider was performing the assessment from a different facility than the patient. This includesuse of [email or web address] [employer]ova ope forauscultationperformed by the telepresenter that the telemedicine provider can hear if described in the physical exam. Structural Test Engineer contact information: Please call [facility] . (Phone Number For Physician Use Only) After establishing a telemedicine visit, patient was: Patient was verified with two unique identifiers, Patient/authorized rep acknowledged consent and understanding and Gave permission to continue telehealth session Time Spent with Patient: Subsequent => 25 min Taken to OR yesterday for I&D of L foot and bone biopsy Afebrile WBC downtrending to 15.51 Physical Exam Physical Exam: GEN: Well-appearing, in NAD. RESP: No increased work of breathing EXT: LLE in dressing NEURO: Alert and oriented. Answers all questions appropriately. Speech not slurred. PSYCH: Normal mood, affect appropriate. Results & Data Vital Signs (Past 12 Hours) Vital Signs Temp Pulse Pulse Resp BP Pulse Ox O2 Del Method 01/11/25 07:40 36.4 C L 78 18 108/52 L 91 Room Air 01/11/25 04:38 37.0 C 68 20 175/80 H 96 Nasal Cannula 01/11/25 00:16 37.1 C 81 20 133/76 97 Nasal Cannula 01/10/25 21:56 78 O2 Flow Rate 01/11/25 07:40 01/11/25 04:38 2 01/11/25 00:16 2 01/10/25 21:56 Laboratory Results Short CBC 01/11/25 Range/Units 06:03 WBC 15.51 H (4.8-10.8) K/ul Hgb 8.4 L (14.0-18.0) g/dL Hct 25.0 L (42.0-52.0) % Plt Count 299 (130-400) K/uL BMP 01/11/25 06:03 Sodium 134 L Potassium 4.5 Chloride 96 L Carbon Dioxide 23 BUN 42 H Creatinine 6.05 H* D Glucose 143 H Calcium 8.7
--- NOTE | 2025-01-11 09:16 | Pharmacy Report ---
Pharmacy PK ABX Note - Date of Service January 11, 2025 - Assessment and Plan Assessment 01/11 * Patient scheduled for dialysis today, vanco level collected yesterday likely unchanged d/t ESRD - anticipate 30% removal from dialysis today, plan to redose with vancomycin 1 gm x 1 after dialysis this afternoon 01/10: * Random vancomycin level this AM was ~19.9 mcg/ml - no dialysis scheduled for today, will remain therapeutic for 24 hours. Plan to redose with vancomycin tomorrow after dialysis session 01/09: * 64 year old M receiving vancomycin/ertapenem for L foot cellulitis. PMHx significant for ESRD on HD, aortic valve replacement, T2DM. Underwent L TMA on 01/06/25. Hx of 2nd/3rd toe amputations in the past d/t chronic osteomyelitis and also amputations of right finger. Hx MDRO including ESBL, morganella, enterobacter. Foot xray neg for osteomyelitis. Plan Vancomycin * 1000 mg iv x 1 - given post dialysis today * Plan to order another random level prior to next HD session (MWF schedule currently) Pharmacy will continue to follow and will adjust dose/frequency as necessary. Thank you. Pharmacy has transitioned to AUC monitoring for vancomycin. AUC/KEVIN is the preferred PK/PD target and is associated with decreased risk of nephrotoxicity compared to traditional trough targets.
--- NOTE | 2025-01-11 09:41 | Hospitalist Progress Note ---
Date of Service January 11, 2025 Assessment & Plan (1) Cellulitis of foot, left: (2) Foot pain, left: (3) Status post transmetatarsal amputation of left foot: (4) End stage renal disease on dialysis: (5) Diabetic peripheral neuropathy associated with type 2 diabetes mellitus: (6) Generalized weakness: Plan 64-year-old male who has a significant past medical history of CAD status post CABG x 2, cardiac pacemaker in situ, history of bicuspid aortic valve status post aortic valve replacement, ESRD on HD, history of steal syndrome for AVF, PAD [with history of REIA stent, R SFA/pop lithotripsy/angioplasty for occlusion, R PT/peroneal angioplasty on 07/17], insulin-dependent T2DM, diabetic neuropathy, history of CVA, history of PE who presents to the ED secondary to worsening left foot pain x 3 to 4 days. Pt underwent L TMA on 01/06/[address] Aguilar of [facility] Recently underwent left 2nd and 3rd toe amputations by Dr. Veronica Webster 2/2 chronic osteomyelitis along with amputation of tip of right finger 4/5 distal tip amputations. Left foot abscess/Cellulitis--POA S/P Left TMA on 01/06 Peripheral vascular disease Probable Post op infection H/O MSSA bacteremia - L foot CT Nonspecific soft tissue fluid collection adjacent to the transmeta tarsal amputation site. Differential diagnosis includes postoperative seroma, hematoma, and developing abscess. -Ankle-brachial index: Diminished right ANASTASIIA, indicative of moderate severity peripheral arterial disease. Inability to obtain a left ANASTASIIA due to noncompressible vessels -Normal lactate levels -Blood culture: Negative to date -OR culture growing Klebsiella and enterococcus Continue vancomycin, ertapenem Podiatry, infectious disease, vascular surgery recs noted S/P I&D on 01/10/25 Planned for Left foot delayed primary closure tomorrow. Will keep NPO PMN Pain control as needed Unlikely UTI UCX growing 3 type of organisms. Likely contaminated He is also on ESRD and has no urinary symptoms ESRD on HD On Thursday schedule HD per Nephro T2DM insulin dependent with neuropathy HbA1c 6.7 Continue insulin per protocol Monitor blood glucose levels CAD hx of CABG Bicuspid AV s/p AVR Cardiac pacemaker insitu HTN Continue ASA, Plavix, Statin, atenolol, amlodipine Currently denies any anginal symptoms Hx of CVA continue asa, plavix Generalized deconditioning PT/OT evaluation when appropriate May need rehab placement once stable DVT Px: SQ Heparin, hx of PE in 2010 tx with warfarin x 3 months Code Status Full Code I spent a total of 50 minutes coordinating, documenting and providing care for this patient excluding time spent in performance of separately billed services Admission and Anticipated Discharge Date Admission Date: January 09, 2025 Subjective Patient seen and examined Reports only left leg pain. Denied other complains on ROS Physical Exam Constitutional: + well hydrated; no acute distress Eyes: PERRL, conjunctivae normal, anicteric sclerae ENMT: external ear and nose normal, oropharynx normal Respiratory: normal respiratory effort, lungs clear to auscultation Cardiovascular: Rate/Rhythm: regular rate and regular rhythm Chest (Breasts): Additional Comments: Right anterior chest wall HD catheter Gastrointestinal (Abdomen): normal bowel sounds, soft, nontender, no hepatosplenomegaly Musculoskeletal: Dressing over left foot Neurologic: PERRL, EOMI, accommodation nl, no face palsy, no dysarthria Psychiatric: A+Ox3, euthymic affect Results & Data Results & Data Vital Signs (Past 12 Hours) Vital Signs Temp Pulse Pulse Resp BP Pulse Ox O2 Del Method 01/11/25 07:50 Nasal Cannula 01/11/25 07:40 36.4 C L 78 18 108/52 L 91 Room Air 01/11/25 04:38 37.0 C 68 20 175/80 H 96 Nasal Cannula 01/11/25 00:16 37.1 C 81 20 133/76 97 Nasal Cannula 01/10/25 21:56 78 O2 Flow Rate 01/11/25 07:50 2 01/11/25 07:40 01/11/25 04:38 2 01/11/25 00:16 2 01/10/25 21:56 Laboratory Results Abnormal lab results 01/10/25 01/10/25 01/10/25 Range/Units 15:28 17:17 20:46 WBC (4.8-10.8) K/ul RBC (4.70-6.10) M/uL Hgb (14.0-18.0) g/dL Hct (42.0-52.0) % RDW Std Deviation (36.4-46.3) fL RDW Coeff of Kesha (11.5-14.5) % Neut # (Auto) (1.40-6.50) K/uL [place] # (Auto) (0.11-0.59) K/uL Sodium (136-145) mmol/L Chloride (98-107) mmol/L Anion Gap (3-11) BUN (6-23) mg/dl Creatinine (0.6-1.4) mg/dl BUN/Creatinine Ratio (10-20) Glucose (70-99(Fasting)) mg/dl POC Glucose 103 H 108 H 114 H (70-99) mg/dl Phosphorus (2.5-4.9) mg/dl 01/11/25 01/11/25 01/11/25 Range/Units 06:03 07:54 14:10 WBC 15.51 H (4.8-10.8) K/ul RBC 2.59 L (4.70-6.10) M/uL Hgb 8.4 L (14.0-18.0) g/dL Hct 25.0 L (42.0-52.0) % RDW Std Deviation 52.4 H (36.4-46.3) fL RDW Coeff of Kesha 14.8 H (11.5-14.5) % Neut # (Auto) 12.51 H (1.40-6.50) K/uL [place] # (Auto) 0.98 H (0.11-0.59) K/uL Sodium 134 L (136-145) mmol/L Chloride 96 L (98-107) mmol/L Anion Gap 15 H (3-11) BUN 42 H (6-23) mg/dl Creatinine 6.05 H* D (0.6-1.4) mg/dl BUN/Creatinine Ratio 6.9 L (10-20) Glucose 143 H (70-99(Fasting)) mg/dl POC Glucose 192 H 134 H (70-99) mg/dl Phosphorus 5.6 H (2.5-4.9) mg/dl
[2025-01-11] MEDS: EPOETIN ALFA 20,000 UNITS/ML VIAL IV ONE (12:25)
--- NOTE | 2025-01-11 12:27 | Dialysis Progress Note ---
Date of Service January 11, 2025 Assessment & Plan Admission and Anticipated Discharge Date Admission Date: January 09, 2025 Subjective Assessment & Plan (1) End stage renal disease on dialysis: ESRD on hemodialysis Thursday. At this time no evidence of fluid overload and no electrolyte issues in fact he has not been eating and drinking for many days now and as a result may even be somewhat Euvolemic. potassium is also somewhat low so will do 3 K bath. hemoglobin is low and will be giving TRELL Procrit [id number] units continue dialysis as prescribed --3.5 hrs and take 2 kilo off on 3 K bath (2) Osteomyelitis of finger: does have elevated white count. On antibiotics and also had surgical procedure yesterday (3) Gangrene of finger: patient with extensive issues related with osteomyelitis infection as well as gangrene of finger and toes requiring extensive surgical intervention in the recent past as well as antibiotic therapy. defer to primary team. On vanco and ertapenem currently. Dose adjustment/timing with dialysis. further antibiotics choice will be as per primary team and possibly Infectious Disease as patient is quite complicated S----Seen during dialysis. so far tolerating it well. Blood pressure is good and catheter is working fine. Feels fine. he had surgical debridement in his left foot yesterday review of systems------ 12 systems reviewed and is otherwise negative physical examination middle aged white male who appears chronically ill. No overt respiratory distress. normal speech and was present at the bedside mucous membrane is moist neck is supple no JVD chest bilateral diminished breath sound but no respiratory distress and on room air 97% saturation CVS S1 and S2 regular systolic murmur heard abdomen is soft nontender extremities with trace to 1+ edema in the left and no edema in the right Results & Data Vital Signs (Past 12 Hours) Vital Signs Temp Pulse Pulse Pulse Resp BP BP 01/11/25 12:00 73 134/66 01/11/25 11:30 71 121/61 01/11/25 11:00 71 123/65 01/11/25 10:30 72 122/63 01/11/25 10:00 74 136/67 01/11/25 09:58 73 132/75 01/11/25 09:51 36.7 C 76 01/11/25 07:50 01/11/25 07:40 36.4 C L 78 18 108/52 L 01/11/25 04:38 37.0 C 68 20 175/80 H Pulse Ox O2 Del Method O2 Flow Rate 01/11/25 12:00 01/11/25 11:30 01/11/25 11:00 01/11/25 10:30 01/11/25 10:00 01/11/25 09:58 01/11/25 09:51 01/11/25 07:50 Nasal Cannula 2 01/11/25 07:40 91 Room Air 01/11/25 04:38 96 Nasal Cannula 2
[2025-01-11] MEDS: VANCOMYCIN HCL / NSS 1,000 MG/270 ML BAG IV ONE (17:05)
[2025-01-12 06:29] LABS: Hematocrit (blood only) 24.6 % (42.0-52.0); Hemoglobin 8.0 g/dL (14.0-18.0); Mean Corpuscular Hemoglobin 31.6 pg (25.0-34.0); Mean Corpuscular Volume 97.2 fL (80.0-100.0); Platelet Count 339 K/uL (130-400); RDW Standard Deviation 53.9 fL (36.4-46.3); Red Blood Count 2.53 M/uL (4.70-6.10); White Blood Count 16.64 K/ul (4.8-10.8)
[2025-01-12 06:54] LABS: Anion Gap 12.0 (3-11); Blood Urea Nitrogen 29.0 mg/dl (6-23); Calcium 9.1 mg/dl (8.6-10.3); Carbon Dioxide 27.0 mmol/L (21-32); Chloride 97.0 mmol/L (98-107); Creatinine Clr Calc Pharmacy 17.0 ml/min; Glucose 169.0 mg/dl (70-99(Fasting)); Potassium 4.0 mmol/L (3.5-5.1); Sodium 136.0 mmol/L (136-145)
--- NOTE | 2025-01-12 08:49 | Infectious Disease Progress Nt ---
Date of Service January 12, 2025 Assessment & Plan (1) Abscess of left foot: (2) PVD (peripheral vascular disease): (3) Status post transmetatarsal amputation of left foot: (4) Cellulitis of foot, left: Plan Problems: #L foot osteomyelitis s/p 2nd and 3rd toe amputation (09/2024) c/b injury/dehiscence s/p TMA (01/06/25), c/b soft tissue abscess s/p I&D and bone biopsy (01/10/25) #T2DM #PAD #Pacemaker in place #MSSA bacteremia 09/2024 thought 2/2 L foot osteomyelitis s/p cefazolin x 6 weeks through 11/25/24. ANI negative Micro: 01/10 L foot tissue cx: ESBL Kleb pneumo, E faecalis. GS rare GPCs 01/10 L 4th and 5th metatarsal bone cx: ESBL Kleb pneumo, E faecalis. GS rare GPCs 01/10 L foot deep #2 cx: ESBL Kleb pneumo, E faecalis. GS rare GPCs 01/10 L foot deep cx: ESBL Kleb pneumo (S erta, damian, TMP/SMX. R cipro, levo), E faecalis. GS rare GPCs 01/09 UCx: mixed shazia 01/09 BCx x2: NGTD 11/17 Back wound cx: ESBL Kleb pneumo, Morganella morganii 10/14 R 4th finger tip cx: MSSA, Enterobacer cloacae complex, Cutibacterium avidum, low counts probable skin shazia 10/12 L toe cx: MSSA, Helcococcus kunzii, Anaerococcus vaginalis, mod probable skin shazia 10/12 BCx x2: MSSA in 2/4 bottles 10/10 BCx x2: MSSA in 4/4 bottles Abx: Vanc 01/09 - present Ertapenem 01/09 - present 64 yo M with history of T2DM, diabetic neuropathy, PAD s/p prior revascularizations, CAD s/p CABG x 2, complete heart block s/p pacemaker, bicuspid aortic valve s/p AVR, ESRD on HD, history of steal syndrome for AVF, CVA, PE who presented on 01/09 with worsening L foot pain x 3-4 days, found on CT to have soft tissue fluid collection adjacent to TMA site c/f abscess. Was hospitalized at [facility] 10/10-11/08 with MSSA bacteremia, L foot osteomyelitis s/p L 2nd and 3rd toe amputations, R 4th and 5th finger dry gangrene/osteomyelitis s/p partial amputations. Was seen by Wilda JIM. ANI was negative. He was discharged on cefazolin x 6 weeks through 11/25/24. Pt was recently hospitalized at [facility] 01/04-01/07 due to injuring his L foot at the site of prior amputations. He was seen by his hose stripper Dr. Aguilar and underwent L TMA on 01/06/25. Pt denied fevers, but reported sweats. Has been on Keflex for the last week, which was prescribed at [facility] ER on 01/03 prior to his admission to [facility]. On presentation, pt was afebrile, VSS. Labs showed WBC 22.32, ESR 60, CRP 35.62, procal 2.17. UA with >[address] L foot without contrast showed interval postop changes, nonspecific soft tissue fluid collection adjacent to TMA site for which differential includes seroma, hematoma, developing abscess. L foot XR with no acute osseous findings. Pt was started on vanc and ertapenem. Podiatry was consulted, noted pain to palpation, erythema, and drainage to L lateral foot. Pt taken to the OR on 01/10 for L foot I&D and L metatarsal heads 4 and 5 bone biopsy. Per operative note, incision was deepened down to the level of bone where there was ~5 cc of purulent drainage and necrosis to the proximal tissue. OR cultures growing ESBL Kleb pneumo and E faecalis. Pt to return to OR on 01/12 for delayed primary closure. Recommendations: - Continue vanc and ertapenem - Follow-up L 4th and 5th metatarsal bone path to assess for osteomyelitis Will continue to follow. Admission and Anticipated Discharge Date Admission Date: January 09, 2025 Subjective This patient recommendation is based on a telemedicine consult request which was completed asynchronously through chart review and information provided by the primary physician. The patient was not seen or examined today. The evaluation is consultative in nature and all patient care and treatment decisions can either be accepted or rejected by the patient's primary hospital-based treating physician using their own independent medical judgment for their patient. Time Spent Reviewing Chart: 11 - 20 minutes OR cx growing ESBL Kleb pneumo and E faecalis WBC 16.64 Results & Data Vital Signs (Past 12 Hours) Vital Signs Temp Pulse Pulse Resp BP Pulse Ox O2 Del Method 01/12/25 07:40 36.8 C 70 12 131/80 99 Room Air 01/12/25 07:26 65 01/12/25 02:31 36.3 C L 68 16 144/69 H 98 Room Air 01/11/25 22:45 36.2 C L 70 16 131/65 96 Room Air 01/11/25 21:33 71 Laboratory Results Short CBC 01/12/25 Range/Units 05:58 WBC 16.64 H (4.8-10.8) K/ul Hgb 8.0 L (14.0-18.0) g/dL Hct 24.6 L (42.0-52.0) % Plt Count 339 (130-400) K/uL BMP 01/12/25 05:58 Sodium 136 Potassium 4.0 Chloride 97 L Carbon Dioxide 27 BUN 29 H Creatinine 5.02 H* D Glucose 169 H Calcium 9.1
--- NOTE | 2025-01-12 09:27 | Hospitalist Progress Note ---
Date of Service January 12, 2025 Assessment & Plan (1) Cellulitis of foot, left: (2) Foot pain, left: (3) Status post transmetatarsal amputation of left foot: (4) End stage renal disease on dialysis: (5) Diabetic peripheral neuropathy associated with type 2 diabetes mellitus: (6) Generalized weakness: Plan 64-year-old male who has a significant past medical history of CAD status post CABG x 2, cardiac pacemaker in situ, history of bicuspid aortic valve status post aortic valve replacement, ESRD on HD, history of steal syndrome for AVF, PAD [with history of REIA stent, R SFA/pop lithotripsy/angioplasty for occlusion, R PT/peroneal angioplasty on 07/17], insulin-dependent T2DM, diabetic neuropathy, history of CVA, history of PE who presents to the ED secondary to worsening left foot pain x 3 to 4 days. Pt underwent L TMA on 01/06/[address] Aguilar of [facility] Recently underwent left 2nd and 3rd toe amputations by Dr. Veronica Webster 2/2 chronic osteomyelitis along with amputation of tip of right finger 4/5 distal tip amputations. Left foot abscess/Cellulitis--POA S/P Left TMA on 01/06 Peripheral vascular disease Probable Post op infection H/O MSSA bacteremia - L foot CT Nonspecific soft tissue fluid collection adjacent to the transmeta tarsal amputation site. Differential diagnosis includes postoperative seroma, hematoma, and developing abscess. -Ankle-brachial index: Diminished right ANASTASIIA, indicative of moderate severity peripheral arterial disease. Inability to obtain a left ANASTASIIA due to noncompressible vessels -Normal lactate levels -Blood culture: Negative to date -OR culture growing Klebsiella and enterococcus Continue vancomycin, ertapenem Podiatry, infectious disease, vascular surgery recs noted S/P I&D on 01/10/25 Planned for Left foot delayed primary closure today Pain control as needed Vascular planning angiogram on Thursday morning in the cath laboratory technician, in attempt to open tibial vessels to restore blood flow and help with healing TMA Unlikely UTI UCX growing 3 type of organisms. Likely contaminated He is also on ESRD and has no urinary symptoms ESRD on HD On Thursday schedule HD per Nephro T2DM insulin dependent with neuropathy HbA1c 6.7 Continue insulin per protocol Monitor blood glucose levels CAD hx of CABG Bicuspid AV s/p AVR Cardiac pacemaker insitu HTN Continue ASA, Plavix, Statin, atenolol, amlodipine Hx of CVA continue asa, plavix Generalized deconditioning PT/OT evaluation when appropriate May need rehab placement once stable DVT Px: SQ Heparin, hx of PE in 2010 tx with warfarin x 3 months Code Status Full Code Call to to update her was unanswered. Will try again later I spent a total of 45 minutes coordinating, documenting and providing care for this patient excluding time spent in performance of separately billed services Admission and Anticipated Discharge Date Admission Date: January 09, 2025 Subjective Patient seen and examined Reports left foot pain is controlled Reports some neck stiffness on waking up but may be related to how he slept Physical Exam Constitutional: + well hydrated; no acute distress Eyes: PERRL, conjunctivae normal, anicteric sclerae ENMT: external ear and nose normal, oropharynx normal Respiratory: normal respiratory effort, lungs clear to auscultation Cardiovascular: Rate/Rhythm: regular rate and regular rhythm Gastrointestinal (Abdomen): normal bowel sounds, soft, nontender, no hepatosplenomegaly Musculoskeletal: Left foot dressing Chronic wound on 4th and 5th right fingers Neurologic: PERRL, EOMI, accommodation nl, no face palsy, no dysarthria Psychiatric: A+Ox3, euthymic affect Results & Data Results & Data Vital Signs (Past 12 Hours) Vital Signs Temp Pulse Pulse Resp BP Pulse Ox O2 Del Method 01/12/25 07:40 36.8 C 70 12 131/80 99 Room Air 01/12/25 07:26 65 01/12/25 02:31 36.3 C L 68 16 144/69 H 98 Room Air 01/11/25 22:45 36.2 C L 70 16 131/65 96 Room Air 01/11/25 21:33 71 Laboratory Results Abnormal lab results 01/11/25 01/11/25 01/12/25 Range/Units 16:48 20:38 05:58 WBC 16.64 H (4.8-10.8) K/ul RBC 2.53 L (4.70-6.10) M/uL Hgb 8.0 L (14.0-18.0) g/dL Hct 24.6 L (42.0-52.0) % RDW Std Deviation 53.9 H (36.4-46.3) fL RDW Coeff of Kesha 15.0 H (11.5-14.5) % Chloride 97 L (98-107) mmol/L Anion Gap 12 H (3-11) BUN 29 H (6-23) mg/dl Creatinine 5.02 H* D (0.6-1.4) mg/dl BUN/Creatinine Ratio 5.8 L (10-20) Glucose 169 H (70-99(Fasting)) mg/dl POC Glucose 213 H 208 H (70-99) mg/dl 01/12/25 01/12/25 Range/Units 08:00 11:50 WBC (4.8-10.8) K/ul RBC (4.70-6.10) M/uL Hgb (14.0-18.0) g/dL Hct (42.0-52.0) % RDW Std Deviation (36.4-46.3) fL RDW Coeff of Kesha (11.5-14.5) % Chloride (98-107) mmol/L Anion Gap (3-11) BUN (6-23) mg/dl Creatinine (0.6-1.4) mg/dl BUN/Creatinine Ratio (10-20) Glucose (70-99(Fasting)) mg/dl POC Glucose 177 H 198 H (70-99) mg/dl
--- NOTE | 2025-01-12 09:57 | Nephrology Progress Note ---
Date of Service January 12, 2025 Assessment & Plan Admission and Anticipated Discharge Date Admission Date: January 09, 2025 Subjective Assessment & Plan (1) End stage renal disease on dialysis: ESRD on hemodialysis Thursday. At this time no evidence of fluid overload and no electrolyte issues in fact he has not been eating and drinking for many days now and as a result may even be somewhat Euvolemic. continue dialysis as prescribed will do tomorrow as per his MWF schedule--3.5 hrs and take 2 kilo off on 3 K bath (2) Osteomyelitis of finger: does have elevated white count. On antibiotics and also had surgical procedure yesterday patient with extensive issues related with osteomyelitis infection as well as gangrene of finger and toes requiring extensive surgical intervention in the recent past as well as antibiotic therapy. even now has Abscess and growing ESBL and E fecalis. reviewed ID note. On vanco and ertapenem currently. Dose adjustment/timing with dialysis. S----Dialysis hernandez so far tolerating it well. Blood pressure is good and catheter is working fine. Feels fine. he had surgical debridement in his left foot 01/10 and again later today review of systems------ 12 systems reviewed and is otherwise negative physical examination middle aged white male who appears chronically ill. No overt respiratory distress. normal speech and was present at the bedside mucous membrane is moist neck is supple no JVD chest bilateral diminished breath sound but no respiratory distress and on room air 97% saturation CVS S1 and S2 regular systolic murmur heard abdomen is soft nontender extremities with trace to 1+ edema in the left and no edema in the right Results & Data Vital Signs (Past 12 Hours) Vital Signs Temp Pulse Pulse Resp BP Pulse Ox O2 Del Method 01/12/25 07:40 36.8 C 70 12 131/80 99 Room Air 01/12/25 07:26 65 01/12/25 02:31 36.3 C L 68 16 144/69 H 98 Room Air 01/11/25 22:45 36.2 C L 70 16 131/65 96 Room Air
--- NOTE | 2025-01-12 10:18 | Vascular Surgery Progress Note ---
Date of Service January 12, 2025 Assessment & Plan (1) PVD (peripheral vascular disease): Plan: 64 year old male with long standing history of diabetes and PAD, with multiple lower extremity interventions bilaterally. ABIs were ordered and reviewed, specifically the left side, which demonstrated non-compressible vessels as expected with his diabetes. Waveforms were difficult to assess. Follow up CTA abd/pelvis with runoff demonstrates diffuse atherosclerotic disease and calcifications. On the left specifically he has likely occlusions of the [employer] and DERIC and peroneal arteries in the calf with poor runoff to the foot, and arteries are heavily calcified. We have Mr. Bentley scheduled for angiogram on Thursday in the labourers, in attempt to open tibial vessels to restore blood flow and help with healing TMA. In the meantime, would continue wound care per podiatry, and continue his aspirin, plavix and statin. (2) Foot pain, left: Plan: Does not sound like ischemic rest pain in talking with patient I&D in OR with abscess and minimal blood flow, cultures positive for klebsiella and enterococcus-on antibiotics (3) Cellulitis of foot, left: Plan: continue antibiotics per ID/primary team Admission and Anticipated Discharge Date Admission Date: January 09, 2025 Subjective Doing ok this morning. Has less foot pain. Denies fevers or chills. Underwent I&D by podiatry on Thursday afternoon, which demonstrated minimal bleeding, along with some purulence in wound. Cultures from wound are positive for both klebsiella and enterococcus faecalis, not just in tissue but in the 4th and 5th metatarsal bone cultures as well. He remains on antibiotics. he is to go to OR today for delayed primary closure with podiatry. CTA was completed on Thursday, and demonstrates significant arterial occlusive disease. Specifically in the tibial vessels on the left he has minimal runoff. Physical Exam Physical Exam: well developed, well nourished, lying in bed left foot dressing in place Results & Data Vital Signs (Past 12 Hours) Vital Signs Temp Pulse Pulse Resp BP Pulse Ox O2 Del Method 01/12/25 07:40 36.8 C 70 12 131/80 99 Room Air 01/12/25 07:26 65 01/12/25 02:31 36.3 C L 68 16 144/69 H 98 Room Air 01/11/25 22:45 36.2 C L 70 16 131/65 96 Room Air Laboratory Results 01/10/25 Unknown Gram Stain - Final Foot,Left Aerobic and Anaerobic Culture - Preliminary Klebsiella pneumoniae Enterococcus faecalis 01/10/25 Unknown Gram Stain - Final Foot,Left Aerobic and Anaerobic Culture - Preliminary Klebsiella pneumoniae ESBL Enterococcus faecalis 01/10/25 Unknown Gram Stain - Final Foot,Left Aerobic and Anaerobic Culture - Preliminary Klebsiella pneumoniae Enterococcus faecalis 01/10/25 Unknown Gram Stain - Final Foot,Left Aerobic and Anaerobic Culture - Preliminary Klebsiella pneumoniae Enterococcus faecalis 01/09/25 08:04 Aerobic Blood Culture - Preliminary Blood No growth in Aerobic bottle after 48 hours. Anaerobic Blood Culture - Preliminary No growth in Anaerobic bottle after 48 hours. 01/09/25 07:58 Aerobic Blood Culture - Preliminary Blood No growth in Aerobic bottle after 48 hours. Anaerobic Blood Culture - Preliminary No growth in Anaerobic bottle after 48 hours. 01/09/25 Unknown Urine Culture - Final Urine,Straight Cath Three types of organisms present, all moderate counts. Repeat collection recommended. No further identifications or sensitivities to follow. 01/12/25 01/12/25 01/11/25 08:00 05:58 20:38 WBC 16.64 H RBC 2.53 L Hgb 8.0 L Hct 24.6 L MCV 97.2 MCH 31.6 MCHC 32.5 RDW Std Deviation 53.9 H RDW Coeff of Kesha 15.0 H Plt Count 339 MPV 10.5 Sodium 136 Potassium 4.0 Chloride 97 L Carbon Dioxide 27 Anion Gap 12 H BUN 29 H Creatinine 5.02 H* D Est Cr Clr Drug Dosing 17.0 eGFR 12.20 BUN/Creatinine Ratio 5.8 L Glucose 169 H POC Glucose 177 H 208 H Calcium 9.1 01/11/25 01/11/25 16:48 14:10 WBC RBC Hgb Hct MCV MCH MCHC RDW Std Deviation RDW Coeff of Kesha Plt Count MPV Sodium Potassium Chloride Carbon Dioxide Anion Gap BUN Creatinine Est Cr Clr Drug Dosing eGFR BUN/Creatinine Ratio Glucose POC Glucose 213 H 134 H Calcium Diagnostic Findings CTA with runoff 01/10/25: FINDINGS: Vascular findings: There are severe diffuse atherosclerotic calcifications. No abdominal aortic aneurysm or significant aortic luminal narrowing seen. Celiac, superior mesenteric, inferior mesenteric, and bilateral renal arteries are patent. Common, internal, and external iliac and common femoral arteries show no significant narrowing or occlusion. The common femoral artery stents are patent. Right lower extremity: Deep femoral artery is patent. There is mild focal narrowing at the origin of the right superficial femoral artery. The stent proximally at the right SFA is patent. There is severe focal narrowing proximal right SFA just distal to the proximal stent. There is mild multifocal narrowing at the right SFA otherwise. The stent at the mid to distal right SFA is patent. Evaluation of the right popliteal artery and [id number] arteries is difficult due to heavy calcification. Right popliteal artery demonstrates at least moderate multifocal narrowing. There is diffuse multifocal at least moderate narrowing at the nnotu-nbt-[id number] arteries with possible occlusion of the anterior and posterior tibial and peroneal arteries at the calf. Left lower extremity: Deep femoral artery is patent. Stent proximally at the left SFA is patent. There is at least moderate multifocal narrowing distally at the left SFA and popliteal arteries. Evaluation of the ibzrj-seg-yrap arteries is limited by heavy calcification. There is diffuse multifocal at least moderate narrowing at the below knee arteries with possible occlusion of the anterior and posterior tibial and peroneal arteries at the calf. Stable transmetatarsal amputation compared with left foot CT of 01/09/2025. Grossly stable soft tissue fluid collection, better seen on the prior foot CT. Grossly stable soft tissue gas. ABDOMEN: There are a few tiny gallstones without evidence of acute cholecystitis. Otherwise the liver, spleen, pancreas, and adrenal glands are unremarkable. There is a 2.2 cm round finding with Hounsfield density of 27 at the right lower kidney. It likely represents cysts. There is a likely tiny cyst at the left kidney. Pelvis: Prostate is mildly enlarged. Urinary bladder is mildly distended. There is a small amount of gas in the urinary bladder. Suggest clinical correlation for recent bladder instrumentation. There is moderate retained stool. No bowel inflammation or obstruction seen. Normal appendix. No free fluid or free air. No enlarged adenopathy. There is mild degenerative change of the lumbar spine and hips. IMPRESSION: 1. No acute findings. 2. Likely a small cyst at the right kidney. Suggest renal ultrasound for confirmation. 3. Abnormal CTA as described. ACT 112: Negative or not required by law. Electronically signed by: Prabhu Cordova M.D. 01/10/2025 10:43 AM Medications Administered Home Medications Medication Instructions Recorded Confirmed Last Taken atenolol 50 mg tablet 50 mg PO QAM 03/07/20 01/09/25 07/19/21 insulin aspart U-100 100 unit/mL 1 sliding scale dose subcut UD 03/07/20 01/09/25 07/19/21 12:00 (3 mL) subcutaneous pen (Novolog 10 units FlexPen U-100 Insulin aspart) insulin glargine 100 unit/mL (3 30 unit subcut QAM 03/07/20 01/09/25 07/19/21 mL) subcutaneous pen (Basaglar KwikPen U-100 Insulin) cholecalciferol (vitamin D3) 25 25 mcg PO .3X WEEK 11/01/21 01/09/25 Unknown mcg (1,000 unit) tablet (Vitamin D3) acetaminophen 500 mg tablet 500 - 1,000 mg PO UD PRN Pain 10/10/24 01/09/25 Unknown torsemide 100 mg tablet 100 mg PO DAILY 10/10/24 01/09/25 Unknown aspirin 81 mg tablet,delayed 81 mg PO DAILY #30 tabs 11/08/24 01/09/25 Unknown release clopidogrel 75 mg tablet 75 mg PO HS #30 tabs 11/08/24 01/09/25 Unknown gabapentin 600 mg tablet 600 mg PO TID #30 tabs 11/08/24 01/09/25 Unknown lidocaine 5 % topical patch 1 patch transdermal QAM #15 ea 11/08/24 01/09/25 Unknown cephalexin 500 mg capsule 500 mg PO QID 7 days #28 caps 01/03/25 01/09/25 Unknown amlodipine 5 mg tablet 5 mg PO QAM 01/09/25 01/09/25 Unknown atorvastatin 80 mg tablet 80 mg PO HS 01/09/25 01/09/25 Unknown docusate sodium 100 mg capsule 100 mg PO BID PRN Constipation 01/09/25 01/09/25 Unknown oxycodone 5 mg/5 mL oral solution 2.5 mg PO Q6H PRN Pain, Severe 01/09/25 01/09/25 Unknown Active Medications Generic Name Dose Route Start Last Admin Trade Name Freq PRN Reason Stop Dose Admin Acetaminophen 650 mg 01/09/25 12:20 01/11/25 18:01 Acetaminophen 325 Mg Tab PO 02/08/25 12:19 650 mg Q4H PRN Administration Pain or Fever Acetaminophen 500 mg 01/09/25 12:20 01/12/25 05:19 Acetaminophen 500 Mg Tab PO 02/08/25 12:19 500 mg Q8H ESTHER Administration Amlodipine Besylate 5 mg 01/10/25 09:00 01/12/25 08:53 Amlodipine Besylate 5 Mg Tab PO 02/09/25 08:59 5 mg QAM ESTHER Administration Aspirin 81 mg 01/10/25 09:00 01/12/25 08:53 Aspirin 81 Mg Ectab PO 02/09/25 08:59 81 mg DAILY ESTHER Administration Atenolol 50 mg 01/10/25 09:00 01/12/25 08:53 Atenolol 50 Mg Tablet PO 02/09/25 08:59 50 mg QAM ESTHER Administration Atorvastatin Calcium 80 mg 01/09/25 21:00 01/11/25 21:07 Atorvastatin 40 Mg Tab PO 02/08/25 20:59 80 mg HS ESTHER Administration Clopidogrel Bisulfate 75 mg 01/09/25 21:00 01/11/25 21:07 Clopidogrel Bisulfate 75 Mg Tab PO 02/08/25 20:59 75 mg HS ESTHER Administration Docusate Sodium 100 mg 01/09/25 12:20 01/11/25 09:26 Docusate Sodium 100 Mg Cap PO 02/08/25 12:19 100 mg DAILY PRN Administration Constipation Gabapentin 600 mg 01/09/25 14:00 01/12/25 08:53 Gabapentin 600 Mg Tab PO 02/08/25 13:59 600 mg TID ESTHER Administration Heparin Sodium (Porcine) 5,000 units 01/09/25 21:00 01/12/25 05:19 Heparin Sod 5,000 Unit/0.5 Ml Vial SQ 02/08/25 20:59 5,000 units Q8 ESTHER Administration Ertapenem 500 mg in 5 mls @ 2 mls/min 01/10/25 09:30 01/12/25 08:51 Invanz 500mg IV 01/17/25 09:29 2 mls/min Q24H ESTHER Administration Insulin Aspart 0 units 01/09/25 12:20 01/12/25 08:43 Insulin Aspart Per Unit Charge SC 02/08/25 12:19 Not Given ACHS [facility] Insulin Glargine 0 - 20 units 01/10/25 09:00 01/12/25 08:51 Lantus Per Unit Charge SQ 02/09/25 08:59 10 units DAILY ESTHER Administration Lactobacillus Acidophilus 1,250 mg 01/10/25 09:00 01/12/25 08:53 Advanced Probiotic 625 Mg Capsule PO 02/09/25 08:59 1,250 mg DAILY ESTHER Administration Melatonin 3 mg 01/09/25 12:20 01/11/25 21:07 Melatonin 3 Mg Tab PO 02/08/25 12:19 3 mg HS PRN Administration Sleep Morphine Sulfate 3 mg 01/09/25 12:20 01/10/25 21:47 Morphine Sulfate 4 Mg/Ml 1 Ml Carp\Vial IV 01/23/25 12:19 3 mg Q4H PRN Administration Severe Pain (Scale 7, 8, 9,10) Oxycodone HCl 5 mg 01/09/25 12:20 01/12/25 10:03 Oxycodone Hcl Soln 5 Mg/5 Ml Udc PO 01/23/25 12:19 5 mg Q6H PRN Administration Moderate Pain (Scale 4, 5, 6) Polyethylene Glycol 17 gm 01/09/25 12:20 01/11/25 21:08 Polyethylene (Miralax) 17 Gm Pack PO 02/08/25 12:19 17 gm DAILY PRN Administration Constipation Torsemide 100 mg 01/10/25 09:00 01/12/25 08:53 Torsemide 100 Mg Tab PO 02/09/25 08:59 100 mg DAILY ESTHER Administration Vitamin D 25 mcg 01/09/25 12:30 01/11/25 09:27 Cholecalciferol 25 Mcg (1000 Units) Tab PO 02/08/25 12:29 25 mcg MoWeFr@0900 ESTHER Administration PG Care Time/CCT Total # of Minutes Spent Total Time Spent with Patient: Total time spent is greater than 50% in coordination of care (as documented) at patient's floor/unit and/or counseling patient:
[2025-01-12] MEDS ORDERED: PROPOFOL IV EMULSION 10 MG/ML 20 ML VIAL IV ONE (16:09)
[2025-01-12] MEDS ORDERED: MIDAZOLAM HCL 1 MG/ML 2ML VIAL ONE (16:10)
[2025-01-12] MEDS ORDERED: ATROPINE SULFATE 0.1 MG/ML 10ML SYR IV PRN (16:21)
--- NOTE | 2025-01-12 16:21 | Anesthesiology Consultation ---
Date of Service January 12, 2025 Assessment & Plan Chart Review Chart Review: Acceptable Risk for Surgery and Patient NOT seen in Pre Admission Testing Consults Requested none History Surgery Operation Date: 01/10/25 07:00 Proposed Procedures p Incision and Drainage Left Foot - Shivani Pritchett DPM Operation Date: 01/12/25 07:00 Proposed Procedures p Left Foot Delayed Primary Closure - Shivani Pritchett DPM Operation Date: 01/16/25 10:00 Proposed Procedures p LLE angiogram with possible tigial shockwave - Johny Alfred MD Height/Weight Height: 6 ft 1 in Weight: 95.1 kg Allergies Allergy/AdvReac Type Severity Reaction Status Date / Time daptomycin Allergy Rash Verified 10/10/24 09:48 Medications Home Medications Medication Instructions Recorded Confirmed Last Taken atenolol 50 mg tablet 50 mg PO QAM 03/07/20 01/09/25 07/19/21 insulin aspart U-100 100 unit/mL 1 sliding scale dose subcut UD 03/07/20 01/09/25 07/19/21 12:00 (3 mL) subcutaneous pen (Novolog 10 units FlexPen U-100 Insulin aspart) insulin glargine 100 unit/mL (3 30 unit subcut QAM 03/07/20 01/09/25 07/19/21 mL) subcutaneous pen (Basaglar KwikPen U-100 Insulin) cholecalciferol (vitamin D3) 25 25 mcg PO .3X WEEK 11/01/21 01/09/25 Unknown mcg (1,000 unit) tablet (Vitamin D3) acetaminophen 500 mg tablet 500 - 1,000 mg PO UD PRN Pain 10/10/24 01/09/25 Unknown torsemide 100 mg tablet 100 mg PO DAILY 10/10/24 01/09/25 Unknown aspirin 81 mg tablet,delayed 81 mg PO DAILY #30 tabs 11/08/24 01/09/25 Unknown release clopidogrel 75 mg tablet 75 mg PO HS #30 tabs 11/08/24 01/09/25 Unknown gabapentin 600 mg tablet 600 mg PO TID #30 tabs 11/08/24 01/09/25 Unknown lidocaine 5 % topical patch 1 patch transdermal QAM #15 ea 11/08/24 01/09/25 Unknown cephalexin 500 mg capsule 500 mg PO QID 7 days #28 caps 01/03/25 01/09/25 Unknown amlodipine 5 mg tablet 5 mg PO QAM 01/09/25 01/09/25 Unknown atorvastatin 80 mg tablet 80 mg PO HS 01/09/25 01/09/25 Unknown docusate sodium 100 mg capsule 100 mg PO BID PRN Constipation 01/09/25 01/09/25 Unknown oxycodone 5 mg/5 mL oral solution 2.5 mg PO Q6H PRN Pain, Severe 01/09/25 01/09/25 Unknown Active Medications Generic Name Dose Route Start Last Admin Trade Name Freq PRN Reason Stop Dose Admin Acetaminophen 650 mg 01/09/25 12:20 01/11/25 18:01 Acetaminophen 325 Mg Tab PO 02/08/25 12:19 650 mg Q4H PRN Administration Pain or Fever Acetaminophen 500 mg 01/09/25 12:20 01/12/25 05:19 Acetaminophen 500 Mg Tab PO 02/08/25 12:19 500 mg Q8H ESTHER Administration Amlodipine Besylate 5 mg 01/10/25 09:00 01/12/25 08:53 Amlodipine Besylate 5 Mg Tab PO 02/09/25 08:59 5 mg QAM ESTHER Administration Aspirin 81 mg 01/10/25 09:00 01/12/25 08:53 Aspirin 81 Mg Ectab PO 02/09/25 08:59 81 mg DAILY ESTHER Administration Atenolol 50 mg 01/10/25 09:00 01/12/25 08:53 Atenolol 50 Mg Tablet PO 02/09/25 08:59 50 mg QAM ESTHER Administration Atorvastatin Calcium 80 mg 01/09/25 21:00 01/11/25 21:07 Atorvastatin 40 Mg Tab PO 02/08/25 20:59 80 mg HS ESTHER Administration Clopidogrel Bisulfate 75 mg 01/09/25 21:00 01/11/25 21:07 Clopidogrel Bisulfate 75 Mg Tab PO 02/08/25 20:59 75 mg HS ESTHER Administration Docusate Sodium 100 mg 01/09/25 12:20 01/11/25 09:26 Docusate Sodium 100 Mg Cap PO 02/08/25 12:19 100 mg DAILY PRN Administration Constipation Gabapentin 600 mg 01/09/25 14:00 01/12/25 08:53 Gabapentin 600 Mg Tab PO 02/08/25 13:59 600 mg TID ESTHER Administration Heparin Sodium (Porcine) 5,000 units 01/09/25 21:00 01/12/25 05:19 Heparin Sod 5,000 Unit/0.5 Ml Vial SQ 02/08/25 20:59 5,000 units Q8 ESTHER Administration Ertapenem 500 mg in 5 mls @ 2 mls/min 01/10/25 09:30 01/12/25 08:51 Invanz 500mg IV 01/17/25 09:29 2 mls/min Q24H ESTHER Administration Insulin Aspart 0 units 01/09/25 12:20 01/12/25 13:32 Insulin Aspart Per Unit Charge SC 02/08/25 12:19 Not Given ACHS [facility] Insulin Glargine 0 - 20 units 01/10/25 09:00 01/12/25 08:51 Lantus Per Unit Charge SQ 02/09/25 08:59 10 units DAILY ESTHER Administration Lactobacillus Acidophilus 1,250 mg 01/10/25 09:00 01/12/25 08:53 Advanced Probiotic 625 Mg Capsule PO 02/09/25 08:59 1,250 mg DAILY ESTHER Administration Melatonin 3 mg 01/09/25 12:20 01/11/25 21:07 Melatonin 3 Mg Tab PO 02/08/25 12:19 3 mg HS PRN Administration Sleep Morphine Sulfate 3 mg 01/09/25 12:20 01/10/25 21:47 Morphine Sulfate 4 Mg/Ml 1 Ml Carp\Vial IV 01/23/25 12:19 3 mg Q4H PRN Administration Severe Pain (Scale 7, 8, 9,10) Oxycodone HCl 5 mg 01/09/25 12:20 01/12/25 10:03 Oxycodone Hcl Soln 5 Mg/5 Ml Udc PO 01/23/25 12:19 5 mg Q6H PRN Administration Moderate Pain (Scale 4, 5, 6) Polyethylene Glycol 17 gm 01/09/25 12:20 01/11/25 21:08 Polyethylene (Miralax) 17 Gm Pack PO 02/08/25 12:19 17 gm DAILY PRN Administration Constipation Torsemide 100 mg 01/10/25 09:00 01/12/25 08:53 Torsemide 100 Mg Tab PO 02/09/25 08:59 100 mg DAILY ESTHER Administration Vitamin D 25 mcg 01/09/25 12:30 01/11/25 09:27 Cholecalciferol 25 Mcg (1000 Units) Tab PO 02/08/25 12:29 25 mcg MoWeFr@0900 ESTHER Administration NPO Date Last Intake of Fluids: 01/10/25 Time Last Intake of Fluids: 14:00 Last Intake of Fluids Comment: sip with meds Date Last Intake of Solids: 01/09/25 Time Last Intake of Solids: 23:59 Past Medical History Medical History PAD (peripheral artery disease) RIGHT: S/P R BARREL ASSEMBLER endarterectomy, R SFA/pop angioplasty/stenting, and R peroneal angioplasty by Dr. Loco on 03/13/2017 S/P R PT/peroneal angioplasty and R great toe amputation 05/03/[address] Loco. S/P R great toe amputation debridement 05/06/[address] Loco. S/P R LE angiogram 05/31/[address] Enrique. S/P R SFA ALEKS-angioplasty 07/04/[address] Enrique S/P REIA stent, R SFA/pop lithotripsy/angioplasty (for occlusion), R PT/peroneal angioplasty by on 07/08/24. LEFT: S/P L BARREL ASSEMBLER/DFA Endarterectomy and L SFA stent by Dr. Loco on 09/04/14 S/P L SFA/pop angioplasty by Dr. Page on 06/26/20 S/P L EIA stenting, L pop lithotripsy, and L PT/peroneal angioplasty by Dr. Enrique on 05/31/21 S/P L hallux amputation 07/01/[address] Aguilar S/P L 1st ray amputation 08/08/[address] Aguilar. Amputation of left great toe Osteomyelitis Hallux abducto valgus, bilateral Amputated great toe of right foot Diabetes mellitus with neuropathy Diabetic peripheral neuropathy Callus Past Surgical History Surgical History History of revascularization procedure of lower extremity Social History Smoking Status: Former smoker tobacco type: smokeless tobacco Do You Dip or Chew Tobacco: Yes Hx Alcohol Use: No Alcohol type: beer alcohol intake frequency: other Hx Substance Use: No Physical Exam Vital Signs Last Vital Signs Temp 36.6 C 01/12/25 15:11 Pulse 69 01/12/25 15:11 Resp 12 01/12/25 07:40 BP 113/53 L 01/12/25 15:11 Pulse Ox 98 01/12/25 15:11 O2 Del Method Room Air 01/12/25 15:11 O2 Flow Rate 2 01/11/25 19:15 Testing Laboratory Results 01/12/25 05:58 01/12/25 05:58 Hemoglobin A1c 6.7 % (4.5-5.6) H 01/10/25 05:59 Urine Color Dark Yellow 01/09/25 Unknown Urine Appearance Turbid (Clear) A 01/09/25 Unknown Urine pH 6.5 (4.5-7.5) 01/09/25 Unknown Ur Specific [place] 1.015 (1.000-1.030) 01/09/25 Unknown Urine Protein 3+ (Negative) H 01/09/25 Unknown Urine Glucose (UA) Negative (Negative) 01/09/25 Unknown Urine Ketones Trace (Negative) H 01/09/25 Unknown Urine Nitrite Negative (Negative) 01/09/25 Unknown Ur Leukocyte Esterase 3+ (Negative) H 01/09/25 Unknown Urine WBC (Auto) >50 /hpf (0-5) H 01/09/25 Unknown Urine RBC (Auto) 3-5 /hpf (0-2) H 01/09/25 Unknown U Hyaline Cast (Auto) 6-10 /lpf (0-2) H 01/09/25 Unknown U Epithel Cells (Auto) 3-5 /hpf (0-2) H 01/09/25 Unknown Urine Bacteria (Auto) 4+ (None Seen) H 01/09/25 Unknown 01/10/25 Unknown Gram Stain - Final Foot,Left Aerobic and Anaerobic Culture - Preliminary Klebsiella pneumoniae ESBL Enterococcus faecalis 01/10/25 Unknown Gram Stain - Final Foot,Left Aerobic and Anaerobic Culture - Preliminary Klebsiella pneumoniae Enterococcus faecalis 01/10/25 Unknown Gram Stain - Final Foot,Left Aerobic and Anaerobic Culture - Preliminary Klebsiella pneumoniae Enterococcus faecalis 01/10/25 Unknown Gram Stain - Final Foot,Left Aerobic and Anaerobic Culture - Preliminary Klebsiella pneumoniae Enterococcus faecalis 01/09/25 08:04 Aerobic Blood Culture - Preliminary Blood No growth in Aerobic bottle after 48 hours. Anaerobic Blood Culture - Preliminary No growth in Anaerobic bottle after 48 hours. 01/09/25 07:58 Aerobic Blood Culture - Preliminary Blood No growth in Aerobic bottle after 48 hours. Anaerobic Blood Culture - Preliminary No growth in Anaerobic bottle after 48 hours. 01/09/25 Unknown Urine Culture - Final Urine,Straight Cath Three types of organisms present, all moderate counts. Repeat collection recommended. No further identifications or sensitivities to follow. 01/12/25 01/12/25 11:50 08:00 POC Glucose 198 H 177 H
--- NOTE | 2025-01-12 16:36 | History & Physical Bridge Note ---
Date of Service January 12, 2025 History & Physical Bridge Note I have examined the patient, reviewed the History & Physical and in the interval since the performance of the History & Physical I have noted the following changes of clinical significance: no changes noted
[2025-01-12] MEDS: BUPIVACAINE 0.5 % 5 MG/1 ML MPF 30ML VIAL ONE (17:05)
--- NOTE | 2025-01-12 17:29 | Anesthesiology Progress Note ---
Date of Service January 12, 2025 Anesthesia Post Procedure Vital Signs Vital Signs: Temp Pulse Pulse Pulse Resp BP BP 01/12/25 17:20 78 20 126/55 L 01/12/25 17:13 37 C 76 18 124/52 L 01/12/25 17:05 76 01/12/25 16:15 36.8 C 80 18 139/71 01/12/25 15:11 36.6 C 69 113/53 L 01/12/25 11:08 36.6 C 79 98/50 L 01/12/25 08:00 01/12/25 07:40 36.8 C 70 12 131/80 01/12/25 07:26 65 01/12/25 02:31 36.3 C L 68 16 144/69 H 01/11/25 22:45 36.2 C L 70 16 131/65 01/11/25 21:33 71 01/11/25 20:05 01/11/25 20:01 01/11/25 19:15 36.6 C 79 18 114/63 Pulse Ox O2 Del Method O2 Flow Rate 01/12/25 17:20 96 Oxymask 3 01/12/25 17:13 95 Oxymask 6 01/12/25 17:05 01/12/25 16:15 93 Room Air 01/12/25 15:11 98 Room Air 01/12/25 11:08 100 Room Air 01/12/25 08:00 Room Air 01/12/25 07:40 99 Room Air 01/12/25 07:26 01/12/25 02:31 98 Room Air 01/11/25 22:45 96 Room Air 01/11/25 21:33 01/11/25 20:05 Room Air 01/11/25 20:01 100 Room Air 01/11/25 19:15 96 Nasal Cannula 2 Pain Intensity Left Foot: Pain Intensity: 0 Transfer of Care Handoff Completed per policy Notes Mental Status: alert / awake / arousable Patient Amnestic to Procedure: Yes Nausea / Vomiting: adequately controlled Pain: adequately controlled Airway Patency, RR, SpO2: stable & adequate BP & HR: stable & adequate Hydration State: stable & adequate Anesthetic Complications: no major complications apparent
--- NOTE | 2025-01-12 17:30 | Post Operative Brief Note ---
Immediate Post Op Note Date of Surgery January 12, 2025 Pre & Post Diagnosis Pre: Left foot diabetic foot infection Post: Left foot diabetic foot infection I identified the patient and participated in the time-out.: Yes Procedure Left foot repeat debridement and delayed primary closure. Surgeon Shivani Pritchett DPM Deli Cutter Slicer none Estimated Blood Loss 0 Findings Consistent with Post-Op Diagnosis Necrosis of tissue with 1 cc of puruluent draiange. Minimal to no bleeding noted. Drains Mcnamara Catheter
--- NOTE | 2025-01-12 17:36 | Operative Report ---
Post Operative Report Pre & Post Diagnosis Pre: Left foot diabetic foot infection Abscess of left foot Post: Same as pre-operative diagnosis. I identified the patient and participated in the time-out.: Yes Procedure Le Left foot repeat debridement and Delayed Primary closure. Surgeon Shivani Pritchett DPM Pulmonology Technician none Estimated Blood Loss 0 Findings Consistent with Post-Op Diagnosis Necrosis of tissue with 1 cc of purulent drainage. Minimal to no bleeding noted intra-op. Necrosis of TMA flap noted. Specimens N/A Indications Patient is a 64-year-old male that presented to the ED over concerns of left foot infection and possible abscess. Patient was taken back to the OR on 01/10/25. at that time IntraOp it was noted that the patient had minimal bleeding purulent abscess was noted. decision was made to leave incision open to allow for further drainage of abscess. Patient's white count has been trending down since admission. Patient was taken back today again for left foot repeat debridement and delayed primary closure. Again it was noted that patient had minimal bleeding and small amount of purulent drainage was noted. Wound was thoroughly irrigated and the incision was closed with a small portion left open to still allow for drainage of abscess. patient is high risk for a more proximal amputation due to patient's vascular status. Patient understands that this procedure was done for source control of infection. All risks and benefits were discussed with the patient and patient wishes to proceed with procedure at this time. Description of Procedure following satisfactory preop evaluation the patient was brought into the OR and placed on the OR table in the supine position. MAC sedation was administered by anesthesia. Following sedation 10 cc of 0.5% Marcaine plain was then injected into the left foot and a ankle block fashion. The foot was then prepped and draped in the usual sterile manner loaded onto the surgical field. Attention was then directed to the left foot at the site of the previously incised lateral foot. The wound was noted to have intact sutures proximal and distal to the 3 cm opening. The wound was debrided again of all nonviable tissue. Necrosis of the flap was noted to the lateral aspect of the left foot. At this time still minimal bleeding was noted. Wound was flushed with copious amounts of saline solution. Using 3-0 nylon suture the skin was coapted by and over and over style stitch. A small portion of the lateral plantar incision was left open to allow for drainage of any excess purulent drainage. A dressing was applied consisting of Xeroform, 4 x 4's, Kerlix and Miguel wrap to the left foot the patient tolerated anesthesia and the procedure well was transported back to the floor. Orders for the following were written 1.notified medicine of return to floor 2.resume all preop medications orders and diet 3.elevate left leg continue to offload left foot while in bed 4 keep dressing CDI do not remove left foot dressing 5.nonweightbearing to left foot I attest to the content of the Intraoperative Record and any orders documented therein. Any exceptions are noted below.
--- NOTE | 2025-01-13 07:16 | Podiatry Progress Note ---
Date of Service January 13, 2025 Assessment & Plan (1) Status post transmetatarsal amputation of left foot: (2) Cellulitis of foot, left: (3) Foot pain, left: (4) Surgical wound, non healing: (5) Abscess of left foot: (6) PVD (peripheral vascular disease): (7) Diabetic peripheral neuropathy: (8) Diabetes mellitus with neuropathy: (9) Status post incision and drainage: Plan -All notes, labs, and imaging reviewed -Cultures: Klebsiella P. and Enterococcus Faecalis -CT: 1. Interval postoperative changes. 2. Nonspecific soft tissue fluid collection adjacent to the transmetatarsal amputation site. Differential diagnosis includes postoperative seroma, hematoma, and developing abscess. -Dressing: Xeroform and DSD. QoD changes. -Vascular surgery consulted. Did discuss with Vascular team and plans for a possible angiogram on Thursday. Appreciate recommendations. -Infectious disease consulted. Antibiotics per Infectious disease. Appreciate recommendations. -S/P left foot incision and drainage and bone biopsy 01/10/25. - S/P Repeat debridement and DPC left foot 01/12/25 - Patient to undergo angiogram on thursday with vascular team. Will follow findings. Appreciate recommendations. Did discuss with patient that he is high risk for a more proximal amputation because of vascular status. Continue with conservative management for now. Will continue to follow patient closely. Admission and Anticipated Discharge Date Admission Date: January 09, 2025 Subjective Patient is a 64 year old male that is s/p left foot incision and drainage and bone biopsy 01/10/25 and Delayed primary closure 01/12/25. Patient was resting comfortably in bed this morning. Dressing intact this morningNo newpedal complaints today. Review of Systems Review of Systems: All systems reviewed & are unremarkable except as noted in Subjective Physical Exam Cardiovascular: DP and PT pulses are non-palpable. Skin: Surgical TMA incision noted to the left foot. Sutures are intact to medial and central surgical site. Minor pain to palpation, edema and drainage noted today. Necrosis of flap noted laterally. Closed post-op site noted to the lateral foot with small opening to continue allowing for drainage. Neurologic: Protective sensation and light touch sensation diminished today. Results & Data Results & Data Vital Signs (Past 12 Hours) Vital Signs Temp Pulse Pulse Resp BP Pulse Ox O2 Del Method 01/13/25 03:15 36.5 C 70 16 127/71 94 Room Air 01/12/25 23:15 36.8 C 78 16 139/76 92 Room Air 01/12/25 21:38 80 01/12/25 20:16 37.1 C 83 18 131/54 L 93 Room Air 01/12/25 20:00 Room Air
[2025-01-13 07:19] LABS: Hematocrit (blood only) 26.0 % (42.0-52.0); Hemoglobin 8.4 g/dL (14.0-18.0); Immature Granulocytes # (auto) 0.16 K/uL (0.01-0.20); Immature Granulocytes % (auto) 0.9 %; Mean Corpuscular Hemoglobin 31.2 pg (25.0-34.0); Mean Corpuscular Volume 96.7 fL (80.0-100.0); Platelet Count 366 K/uL (130-400); RDW Standard Deviation 52.3 fL (36.4-46.3); Red Blood Count 2.69 M/uL (4.70-6.10); White Blood Count 18.79 K/ul (4.8-10.8)
[2025-01-13 07:38] LABS: Anion Gap 13.0 (3-11); Blood Urea Nitrogen 45.0 mg/dl (6-23); Calcium 8.9 mg/dl (8.6-10.3); Carbon Dioxide 26.0 mmol/L (21-32); Chloride 97.0 mmol/L (98-107); Creatinine Clr Calc Pharmacy 13.1 ml/min; Glucose 142.0 mg/dl (70-99(Fasting)); Potassium 4.2 mmol/L (3.5-5.1); Sodium 136.0 mmol/L (136-145)
--- NOTE | 2025-01-13 08:13 | Infectious Disease Progress Nt ---
Date of Service January 13, 2025 Assessment & Plan (1) Abscess of left foot: (2) PVD (peripheral vascular disease): (3) Status post transmetatarsal amputation of left foot: (4) Cellulitis of foot, left: Plan Problems: #L foot osteomyelitis s/p 2nd and 3rd toe amputation (09/2024) c/b injury/dehiscence s/p TMA (01/06/25), c/b soft tissue abscess s/p I&D and bone biopsy (01/10/25), repeat I&D and delayed primary closure (01/12/25) #T2DM #PAD #Pacemaker in place #MSSA bacteremia 09/2024 thought 2/2 L foot osteomyelitis s/p cefazolin x 6 weeks through 11/25/24. ANI negative #ESRD on HD Micro: 01/10 L foot tissue cx: ESBL Kleb pneumo, E faecalis. GS rare GPCs 01/10 L 4th and 5th metatarsal bone cx: ESBL Kleb pneumo, E faecalis. GS rare GPCs 01/10 L foot deep #2 cx: ESBL Kleb pneumo, E faecalis. GS rare GPCs 01/10 L foot deep cx: ESBL Kleb pneumo (S erta, damian, TMP/SMX. R cipro, levo), E faecalis. GS rare GPCs 01/09 UCx: mixed shazia 01/09 BCx x2: NGTD 11/17 Back wound cx: ESBL Kleb pneumo, Morganella morganii 10/14 R 4th finger tip cx: MSSA, Enterobacer cloacae complex, Cutibacterium avidum, low counts probable skin shazia 10/12 L toe cx: MSSA, Helcococcus kunzii, Anaerococcus vaginalis, mod probable skin shazia 10/12 BCx x2: MSSA in 2/4 bottles 10/10 BCx x2: MSSA in 4/4 bottles Abx: Vanc 01/09 - present Ertapenem 01/09 - present 64 yo M with history of T2DM, diabetic neuropathy, PAD s/p prior revascu larizations, CAD s/p CABG x 2, complete heart block s/p pacemaker, bicuspid aortic valve s/p AVR, ESRD on HD, history of steal syndrome for AVF, CVA, PE who presented on 01/09 with worsening L foot pain x 3-4 days, found on CT to have soft tissue fluid collection adjacent to TMA site c/f abscess. Was hospitalized at [facility] 10/10-11/08 with MSSA bacteremia, L foot osteomyelitis s/p L 2nd and 3rd toe amputations, R 4th and 5th finger dry gangrene/osteomyelitis s/p partial amputations. Was seen by Wilda IJM. ANI was negative. He was discharged on cefazolin x 6 weeks through 11/25/24. Pt was recently hospitalized at [facility] 01/04-01/07 due to injuring his L foot at the site of prior amputations. 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 Aguilar and underwent L TMA on 01/06/25. Pt denied fevers, but reported sweats. Has been on Keflex for the last week, which was prescribed at [facility] ER on 01/03 prior to his admission to [facility]. On presentation, pt was afebrile, VSS. Labs showed WBC 22.32, ESR 60, CRP 35.62, procal 2.17. UA with >[address] L foot without contrast showed interval postop changes, nonspecific soft tissue fluid collection adjacent to TMA site for which differential includes seroma, hematoma, developing abscess. L foot XR with no acute osseous findings. Pt was started on vanc and ertapenem. Podiatry was consulted, noted pain to palpation, erythema, and drainage to L lateral foot. Pt taken to the OR on 01/10 for L foot I&D and L metatarsal heads 4 and 5 bone biopsy. Per operative note, incision was deepened down to the level of bone where there was ~5 cc of purulent drainage and necrosis to the proximal tissue. OR cultures growing ESBL Kleb pneumo and E faecalis. Bone biopsy path with acute osteomyelitis. Pt returned to OR on 01/12 for repeat debridement and delayed primary closure. Pt has severe PAD with poor blood flow to the foot, scheduled for angiogram on 01/16. Recommendations: - Continue vanc and ertapenem to cover E faecalis and ESBL Kleb - Will follow-up vascular procedure on Thursday and subsequent healing. If attempting to salvage the foot, pt would need 6 weeks of IV antibiotics given osteomyelitis seen on L 4th and 5th metatarsal bone biopsy Please note that ID does not round or write notes over the weekend. If questions or concerns arise, please contact the Infectious Disease Call Center and ask to speak with the covering ID physician. Admission and Anticipated Discharge Date Admission Date: January 09, 2025 Subjective This patient recommendation is based on a telemedicine consult request which was completed asynchronously through chart review and information provided by the primary physician. The patient was not seen or examined today. The evaluation is consultative in nature and all patient care and treatment decisions can either be accepted or rejected by the patient's primary hospital-based treating physician using their own independent medical judgment for their patient. Time Spent Reviewing Chart: 11 - 20 minutes Returned to OR yesterday for repeat debridement and delayed primary closure WBC 16.64 --> 18.79 Results & Data Vital Signs (Past 12 Hours) Vital Signs Temp Pulse Pulse Resp BP Pulse Ox O2 Del Method 01/13/25 07:59 36.8 C 70 18 147/67 H 95 Room Air 01/13/25 07:32 71 01/13/25 03:15 36.5 C 70 16 127/71 94 Room Air 01/12/25 23:15 36.8 C 78 16 139/76 92 Room Air 01/12/25 21:38 80 01/12/25 20:16 37.1 C 83 18 131/54 L 93 Room Air Laboratory Results Short CBC 01/13/25 Range/Units 06:44 WBC 18.79 H (4.8-10.8) K/ul Hgb 8.4 L (14.0-18.0) g/dL Hct 26.0 L (42.0-52.0) % Plt Count 366 (130-400) K/uL BMP 01/13/25 06:44 Sodium 136 Potassium 4.2 Chloride 97 L Carbon Dioxide 26 BUN 45 H Creatinine 6.53 H* D Glucose 142 H Calcium 8.9
--- NOTE | 2025-01-13 09:11 | Pharmacy Report ---
Pharmacy PK ABX Note - Date of Service January 13, 2025 - Assessment and Plan Assessment 01/13 * Random vancomycin level this AM was ~18.4 mcg/ml - scheduled for dialysis today, anticipate 30% removal of drug from dialysis, plan to redose with vancomycin 1250 mg x 1 after dialysis session later today. ID consulted, recommending continuation of vanco/ertapenem - cultures with ESBL and enterococcus. Bone pathology consistent with acute osteo. 01/11 * Patient scheduled for dialysis today, vanco level collected yesterday likely unchanged d/t ESRD - anticipate 30% removal from dialysis today, plan to redose with vancomycin 1 gm x 1 after dialysis this afternoon 01/10: * Random vancomycin level this AM was ~19.9 mcg/ml - no dialysis scheduled for today, will remain therapeutic for 24 hours. Plan to redose with vancomycin tomorrow after dialysis session 01/09: * 64 year old M receiving vancomycin/ertapenem for L foot cellulitis. PMHx significant for ESRD on HD, aortic valve replacement, T2DM. Underwent L TMA on 01/06/25. Hx of 2nd/3rd toe amputations in the past d/t chronic osteomyelitis and also amputations of right finger. Hx MDRO including ESBL, morganella, enterobacter. Foot xray neg for osteomyelitis. Plan Vancomycin * 1250 mg iv x 1 - given post dialysis today * Plan to order another random level prior to next HD session (MWF schedule currently) Pharmacy will continue to follow and will adjust dose/frequency as necessary. Thank you. Pharmacy has transitioned to AUC monitoring for vancomycin. AUC/KEVIN is the preferred PK/PD target and is associated with decreased risk of nephrotoxicity compared to traditional trough targets.
--- NOTE | 2025-01-13 09:28 | Vascular Surgery Progress Note ---
Date of Service January 13, 2025 Assessment & Plan (1) PVD (peripheral vascular disease): Plan: 64 year old male with long standing history of diabetes and PAD, with multiple lower extremity interventions bilaterally. ABIs were ordered and reviewed, specifically the left side, which demonstrated non-compressible vessels as expected with his diabetes. Waveforms were difficult to assess. Follow up CTA abd/pelvis with runoff demonstrates diffuse atherosclerotic disease and calcifications. On the left specifically he has likely occlusions of the SACK SORTER and DERIC and peroneal arteries in the calf with poor runoff to the foot, and arteries are heavily calcified. We have Mr. Bentley scheduled for angiogram on Thursday morning in the oven laborer, in attempt to open tibial vessels to restore blood flow and help with healing TMA. I had a long discussion with him and his yesterday about the procedure and we again today discussed procedure with Mr. Bentley, and that if we are unable to restore blood flow to his foot, he will likely require more proximal amp utation(s), which he understands. Consent for procedure as well as sedation were obtained and are currenty in the chart. He will need to be NPO after midnight for procedure on 01/16 am. In the meantime, would continue wound care per podiatry, and continue his aspirin, plavix and statin. (2) Foot pain, left: Plan: Does not sound like ischemic rest pain in talking with patient I&D in OR 01/10 with abscess and minimal blood flow, cultures positive for klebsiella and enterococcus-on antibiotics Further debridement 01/12 with DPC, still with purulence and minimal blood (3) Cellulitis of foot, left: Plan: continue antibiotics per ID/primary team Admission and Anticipated Discharge Date Admission Date: January 09, 2025 Subjective No complaints this morning. He went to OR again yesterday afternoon with podiatry for debridement and DPC. Again small amount of purulence noted with very minimal bleeding and necrosis to lateral flap. Continues with leukocytosis, on IV antibiotics. Vitals stable. Physical Exam Physical Exam: WDWN, in no distress, getting ready to leave for HD +2 right femoral pulse left foot dressing clean, dry and intact. No wounds right foot Results & Data Vital Signs (Past 12 Hours) Vital Signs Temp Pulse Pulse Resp BP Pulse Ox O2 Del Method 01/13/25 07:59 36.8 C 70 18 147/67 H 95 Room Air 01/13/25 07:32 71 01/13/25 03:15 36.5 C 70 16 127/71 94 Room Air 01/12/25 23:15 36.8 C 78 16 139/76 92 Room Air 01/12/25 21:38 80 Laboratory Results 01/10/25 Unknown Gram Stain - Final Foot,Left Aerobic and Anaerobic Culture - Preliminary Klebsiella pneumoniae ESBL Enterococcus faecalis 01/10/25 Unknown Gram Stain - Final Foot,Left Aerobic and Anaerobic Culture - Preliminary Klebsiella pneumoniae Enterococcus faecalis 01/13/25 01/13/25 01/12/25 07:53 06:44 20:50 WBC 18.79 H RBC 2.69 L Hgb 8.4 L Hct 26.0 L MCV 96.7 MCH 31.2 MCHC 32.3 RDW Std Deviation 52.3 H RDW Coeff of Kesha 15.0 H Plt Count 366 MPV 10.2 Immature Gran % (Auto) 0.9 Neut % (Auto) 77.6 Lymph % (Auto) 13.4 [place] % (Auto) 6.3 Eos % (Auto) 1.4 Baso % (Auto) 0.4 Neut # (Auto) 14.60 H Lymph # (Auto) 2.51 [place] # (Auto) 1.19 H Eos # (Auto) 0.26 Baso # (Auto) 0.07 Immature Gran # (Auto) 0.16 Sodium 136 Potassium 4.2 Chloride 97 L Carbon Dioxide 26 Anion Gap 13 H BUN 45 H Creatinine 6.53 H* D Est Cr Clr Drug Dosing 13.1 eGFR 8.90 BUN/Creatinine Ratio 6.9 L Glucose 142 H POC Glucose 175 H 220 H Calcium 8.9 Random Vancomycin 18.4 01/12/25 01/12/25 01/12/25 17:21 16:22 11:50 WBC RBC Hgb Hct MCV MCH MCHC RDW Std Deviation RDW Coeff of Kesha Plt Count MPV Immature Gran % (Auto) Neut % (Auto) Lymph % (Auto) [place] % (Auto) Eos % (Auto) Baso % (Auto) Neut # (Auto) Lymph # (Auto) [place] # (Auto) Eos # (Auto) Baso # (Auto) Immature Gran # (Auto) Sodium Potassium Chloride Carbon Dioxide Anion Gap BUN Creatinine Est Cr Clr Drug Dosing eGFR BUN/Creatinine Ratio Glucose POC Glucose 140 H 138 H 198 H Calcium Random Vancomycin Medications Administered Home Medications Medication Instructions Recorded Confirmed Last Taken atenolol 50 mg tablet 50 mg PO QAM 03/07/20 01/09/25 07/19/21 insulin aspart U-100 100 unit/mL 1 sliding scale dose subcut UD 03/07/20 01/09/25 07/19/21 12:00 (3 mL) subcutaneous pen (Novolog 10 units FlexPen U-100 Insulin aspart) insulin glargine 100 unit/mL (3 30 unit subcut QAM 03/07/20 01/09/25 07/19/21 mL) subcutaneous pen (Basaglar KwikPen U-100 Insulin) cholecalciferol (vitamin D3) 25 25 mcg PO .3X WEEK 11/01/21 01/09/25 Unknown mcg (1,000 unit) tablet (Vitamin D3) acetaminophen 500 mg tablet 500 - 1,000 mg PO UD PRN Pain 10/10/24 01/09/25 Unknown torsemide 100 mg tablet 100 mg PO DAILY 10/10/24 01/09/25 Unknown aspirin 81 mg tablet,delayed 81 mg PO DAILY #30 tabs 11/08/24 01/09/25 Unknown release clopidogrel 75 mg tablet 75 mg PO HS #30 tabs 11/08/24 01/09/25 Unknown gabapentin 600 mg tablet 600 mg PO TID #30 tabs 11/08/24 01/09/25 Unknown lidocaine 5 % topical patch 1 patch transdermal QAM #15 ea 11/08/24 01/09/25 Unknown cephalexin 500 mg capsule 500 mg PO QID 7 days #28 caps 01/03/25 01/09/25 Unknown amlodipine 5 mg tablet 5 mg PO QAM 01/09/25 01/09/25 Unknown atorvastatin 80 mg tablet 80 mg PO HS 01/09/25 01/09/25 Unknown docusate sodium 100 mg capsule 100 mg PO BID PRN Constipation 01/09/25 01/09/25 Unknown oxycodone 5 mg/5 mL oral solution 2.5 mg PO Q6H PRN Pain, Severe 01/09/25 01/09/25 Unknown Active Medications Generic Name Dose Route Start Last Admin Trade Name Freq PRN Reason Stop Dose Admin Acetaminophen 650 mg 01/09/25 12:20 01/11/25 18:01 Acetaminophen 325 Mg Tab PO 02/08/25 12:19 650 mg Q4H PRN Administration Pain or Fever Acetaminophen 500 mg 01/09/25 12:20 01/13/25 05:05 Acetaminophen 500 Mg Tab PO 02/08/25 12:19 500 mg Q8H ESTHER Administration Amlodipine Besylate 5 mg 01/10/25 09:00 01/12/25 08:53 Amlodipine Besylate 5 Mg Tab PO 02/09/25 08:59 5 mg QAM ESTHER Administration Aspirin 81 mg 01/10/25 09:00 01/13/25 08:40 Aspirin 81 Mg Ectab PO 02/09/25 08:59 81 mg DAILY ESTHER Administration Atenolol 50 mg 01/10/25 09:00 01/12/25 08:53 Atenolol 50 Mg Tablet PO 02/09/25 08:59 50 mg QAM ESTHER Administration Atorvastatin Calcium 80 mg 01/09/25 21:00 01/12/25 21:08 Atorvastatin 40 Mg Tab PO 02/08/25 20:59 80 mg HS ESTHER Administration Clopidogrel Bisulfate 75 mg 01/09/25 21:00 01/12/25 21:09 Clopidogrel Bisulfate 75 Mg Tab PO 02/08/25 20:59 75 mg HS ESTHER Administration Docusate Sodium 100 mg 01/09/25 12:20 01/11/25 09:26 Docusate Sodium 100 Mg Cap PO 02/08/25 12:19 100 mg DAILY PRN Administration Constipation Gabapentin 600 mg 01/09/25 14:00 01/13/25 08:44 Gabapentin 600 Mg Tab PO 02/08/25 13:59 600 mg TID ESTHER Administration Heparin Sodium (Porcine) 5,000 units 01/09/25 21:00 01/13/25 05:05 Heparin Sod 5,000 Unit/0.5 Ml Vial SQ 02/08/25 20:59 5,000 units Q8 ESTHER Administration Ertapenem 500 mg in 5 mls @ 2 mls/min 01/10/25 09:30 01/12/25 08:51 Invanz 500mg IV 01/17/25 09:29 2 mls/min Q24H ESTHER Administration Insulin Aspart 0 units 01/09/25 12:20 01/13/25 08:55 Insulin Aspart Per Unit Charge SC 02/08/25 12:19 4 units ACHS ESTHER Administration Insulin Glargine 0 - 20 units 01/10/25 09:00 01/13/25 08:47 Lantus Per Unit Charge SQ 02/09/25 08:59 10 units DAILY ESTHER Administration Lactobacillus Acidophilus 1,250 mg 01/10/25 09:00 01/13/25 08:43 Advanced Probiotic 625 Mg Capsule PO 02/09/25 08:59 1,250 mg DAILY ESTHER Administration Melatonin 3 mg 01/09/25 12:20 01/11/25 21:07 Melatonin 3 Mg Tab PO 02/08/25 12:19 3 mg HS PRN Administration Sleep Morphine Sulfate 3 mg 01/09/25 12:20 01/12/25 21:27 Morphine Sulfate 4 Mg/Ml 1 Ml Carp\Vial IV 01/23/25 12:19 3 mg Q4H PRN Administration Severe Pain (Scale 7, 8, 9,10) Oxycodone HCl 5 mg 01/09/25 12:20 01/13/25 08:55 Oxycodone Hcl Soln 5 Mg/5 Ml Udc PO 01/23/25 12:19 5 mg Q6H PRN Administration Moderate Pain (Scale 4, 5, 6) Polyethylene Glycol 17 gm 01/09/25 12:20 01/11/25 21:08 Polyethylene (Miralax) 17 Gm Pack PO 02/08/25 12:19 17 gm DAILY PRN Administration Constipation Torsemide 100 mg 01/10/25 09:00 01/12/25 08:53 Torsemide 100 Mg Tab PO 02/09/25 08:59 100 mg DAILY ESTHER Administration Vitamin D 25 mcg 01/09/25 12:30 01/13/25 08:43 Cholecalciferol 25 Mcg (1000 Units) Tab PO 02/08/25 12:29 25 mcg MoWeFr@0900 ESTHER Administration PG Care Time/CCT Total # of Minutes Spent Total Time Spent with Patient: Total time spent is greater than 50% in coordination of care (as documented) at patient's floor/unit and/or counseling patient:
--- NOTE | 2025-01-13 11:48 | Nephrology Progress Note ---
Date of Service January 13, 2025 Assessment & Plan (1) End stage renal disease on dialysis: Plan: ESRD on hemodialysis Thursday. At this time no evidence of fluid overload and no electrolyte issues in fact he has not been eating and drinking for many days now and as a result may even be somewhat volume depleted. Patient is tolerating dialysis well today. He is planned for target UF of 2.5 L. hemoglobin is low and will be giving TRELL Procrit 4000 units (2) Osteomyelitis of finger: Plan: does have elevated white count. On antibiotics. (3) Gangrene of finger: Plan: patient with extensive issues related with osteomyelitis infection as well as gangrene of finger and toes requiring extensive surgical intervention in the recent past as well as antibiotic therapy. defer to primary team. antibiotics choice will be as per primary team and possibly Infectious Disease as patient is quite complicated Admission and Anticipated Discharge Date Admission Date: January 09, 2025 Subjective Seen for ESRD. No shortness of breath. Patient is tolerating dialysis well today. Review of Systems 2 Review of Systems: All other systems were reviewed and negative except as noted in HPI Physical Exam 2 Physical Exam: General exam: Appears comfortable, no acute distress HEENT: Pupils are equal and reactive to light Neck: No JVD, neck is supple trachea is midline Respiratory system: Clear breath sounds bilaterally. Gastrointestinal: Abdomen is soft, non distended, non tender, bowel sounds are present CVS: Regular rate and rhythm. No murmurs, rubs or gallops Musculoskeletal: No joint or muscle tenderness Extremities: Non tender, no edema, peripheral pulses are present Neuro: Oriented, no tremors, no focal neurological deficits Skin: No rashes Results & Data Vital Signs (Past 12 Hours) Vital Signs Temp Pulse Pulse Pulse Resp BP BP 01/13/25 11:30 102 H 158/63 H 01/13/25 11:00 71 136/65 01/13/25 10:30 70 135/72 01/13/25 10:00 70 125/65 01/13/25 09:30 69 136/68 01/13/25 09:18 70 118/65 01/13/25 09:10 36.7 C 71 01/13/25 07:59 36.8 C 70 18 147/67 H 01/13/25 07:32 71 01/13/25 03:15 36.5 C 70 16 127/71 Pulse Ox O2 Del Method 01/13/25 11:30 01/13/25 11:00 01/13/25 10:30 01/13/25 10:00 01/13/25 09:30 01/13/25 09:18 01/13/25 09:10 01/13/25 07:59 95 Room Air 01/13/25 07:32 01/13/25 03:15 94 Room Air Laboratory Results 01/13/25 06:44 01/13/25 06:44 WBC 18.79 H RBC 2.69 L MCV 96.7 MCH 31.2 MCHC 32.3 RDW Std Deviation 52.3 H RDW Coeff of Kesha 15.0 H Plt Count 366 MPV 10.2
[2025-01-13] MEDS: EPOETIN ALFA 20,000 UNITS/ML VIAL IV ONE (12:38)
--- NOTE | 2025-01-13 15:05 | Hospitalist Progress Note ---
Date of Service January 13, 2025 Assessment & Plan (1) Cellulitis of foot, left: (2) Foot pain, left: (3) Status post transmetatarsal amputation of left foot: (4) End stage renal disease on dialysis: (5) Diabetic peripheral neuropathy associated with type 2 diabetes mellitus: (6) Generalized weakness: Plan 64-year-old male who has a significant past medical history of CAD status post CABG x 2, cardiac pacemaker in situ, history of bicuspid aortic valve status post aortic valve replacement, ESRD on HD, history of steal syndrome for AVF, PAD [with history of REIA stent, R SFA/pop lithotripsy/angioplasty for occlusion, R PT/peroneal angioplasty on 07/17], insulin-dependent T2DM, diabetic neuropathy, history of CVA, history of PE who presents to the ED secondary to worsening left foot pain x 3 to 4 days. Pt underwent L TMA on 01/06/[address] Aguilar of [facility] Recently underwent left 2nd and 3rd toe amputations by Dr. Veronica Webster 2/2 chronic osteomyelitis along with amputation of tip of right finger 4/5 distal tip amputations. Left foot abscess/Cellulitis--POA S/P Left TMA on 01/06 Peripheral vascular disease Probable Post op infection H/O MSSA bacteremia - L foot CT Nonspecific soft tissue fluid collection adjacent to the transmeta tarsal amputation site. Differential diagnosis includes postoperative seroma, hematoma, and developing abscess. -Ankle-brachial index: Diminished right ANASTASIIA, indicative of moderate severity peripheral arterial disease. Inability to obtain a left ANASTASIIA due to noncompressible vessels -Normal lactate levels -Blood culture: Negative to date -OR culture growing Klebsiella and enterococcus S/P I&D on 01/10/25 S/P Left foot repeat debridement and delayed primary closure on 01/12/25 Continue vancomycin, ertapenem Podiatry, infectious disease, vascular surgery recs noted Pain control Vascular planning angiogram on Thursday in the animal laboratory technician, in attempt to open tibial vessels to restore blood flow and help with healing TMA Unlikely UTI UCX growing 3 type of organisms. Likely contaminated He is also on ESRD and has no urinary symptoms ESRD on HD On Thursday schedule HD per Nephro T2DM insulin dependent with neuropathy HbA1c 6.7 Continue insulin per protocol Monitor blood glucose levels CAD hx of CABG Bicuspid AV s/p AVR Cardiac pacemaker insitu HTN Continue ASA, Plavix, Statin, atenolol, amlodipine Hx of CVA continue asa, plavix Generalized deconditioning PT/OT evaluation when appropriate May need rehab placement once stable DVT Px: SQ Heparin, hx of PE in 2010 tx with warfarin x 3 months Code Status Full Code Called again today to update her but got voicemail. Will try again later I spent a total of 35 minutes coordinating, documenting and providing care for this patient excluding time spent in performance of separately billed services Admission and Anticipated Discharge Date Admission Date: January 09, 2025 Subjective Patient seen and examined earlier in HD suite Reports left foot pain which is controlled with meds No new complaints Physical Exam Constitutional: + well hydrated; no acute distress Eyes: PERRL, conjunctivae normal, anicteric sclerae ENMT: external ear and nose normal, oropharynx normal Respiratory: normal respiratory effort, lungs clear to auscultation Cardiovascular: Rate/Rhythm: regular rate and regular rhythm Gastrointestinal (Abdomen): normal bowel sounds, soft, nontender, no hepatosplenomegaly Musculoskeletal: Dressing over left foot Neurologic: PERRL, EOMI, accommodation nl, no face palsy, no dysarthria Psychiatric: A+Ox3, euthymic affect Results & Data Results & Data Vital Signs (Past 12 Hours) Vital Signs Temp Pulse Pulse Pulse Resp BP BP 01/13/25 12:55 36.8 C 76 01/13/25 12:30 77 154/82 H 01/13/25 12:00 60 135/65 01/13/25 11:30 102 H 158/63 H 01/13/25 11:00 71 136/65 01/13/25 10:30 70 135/72 01/13/25 10:00 70 125/65 01/13/25 09:30 69 136/68 01/13/25 09:18 70 118/65 01/13/25 09:10 36.7 C 71 01/13/25 07:59 36.8 C 70 18 147/67 H 01/13/25 07:32 71 01/13/25 03:15 36.5 C 70 16 127/71 BP Pulse Ox O2 Del Method 01/13/25 12:55 148/78 H 01/13/25 12:30 01/13/25 12:00 01/13/25 11:30 01/13/25 11:00 01/13/25 10:30 01/13/25 10:00 01/13/25 09:30 01/13/25 09:18 01/13/25 09:10 01/13/25 07:59 95 Room Air 01/13/25 07:32 01/13/25 03:15 94 Room Air Laboratory Results Abnormal lab results 01/12/25 01/12/25 01/12/25 Range/Units 16:22 17:21 20:50 WBC (4.8-10.8) K/ul RBC (4.70-6.10) M/uL Hgb (14.0-18.0) g/dL Hct (42.0-52.0) % RDW Std Deviation (36.4-46.3) fL RDW Coeff of Kesha (11.5-14.5) % Neut # (Auto) (1.40-6.50) K/uL [place] # (Auto) (0.11-0.59) K/uL Chloride (98-107) mmol/L Anion Gap (3-11) BUN (6-23) mg/dl Creatinine (0.6-1.4) mg/dl BUN/Creatinine Ratio (10-20) Glucose (70-99(Fasting)) mg/dl POC Glucose 138 H 140 H 220 H (70-99) mg/dl 01/13/25 01/13/25 01/13/25 Range/Units 06:44 07:53 14:03 WBC 18.79 H (4.8-10.8) K/ul RBC 2.69 L (4.70-6.10) M/uL Hgb 8.4 L (14.0-18.0) g/dL Hct 26.0 L (42.0-52.0) % RDW Std Deviation 52.3 H (36.4-46.3) fL RDW Coeff of Kesha 15.0 H (11.5-14.5) % Neut # (Auto) 14.60 H (1.40-6.50) K/uL [place] # (Auto) 1.19 H (0.11-0.59) K/uL Chloride 97 L (98-107) mmol/L Anion Gap 13 H (3-11) BUN 45 H (6-23) mg/dl Creatinine 6.53 H* D (0.6-1.4) mg/dl BUN/Creatinine Ratio 6.9 L (10-20) Glucose 142 H (70-99(Fasting)) mg/dl POC Glucose 175 H 169 H (70-99) mg/dl
[2025-01-13] MEDS: VANCOMYCIN HCL 1,250 MG in SODIUM CHLORIDE 0.9% 250 ML IV ONE (17:07)
[2025-01-14 06:46] LABS: Hematocrit (blood only) 27.5 % (42.0-52.0); Hemoglobin 8.8 g/dL (14.0-18.0); Mean Corpuscular Hemoglobin 31.3 pg (25.0-34.0); Mean Corpuscular Volume 97.9 fL (80.0-100.0); Platelet Count 375 K/uL (130-400); RDW Standard Deviation 54.6 fL (36.4-46.3); Red Blood Count 2.81 M/uL (4.70-6.10); White Blood Count 17.79 K/ul (4.8-10.8)
[2025-01-14 07:20] LABS: Anion Gap 11.0 (3-11); Blood Urea Nitrogen 38.0 mg/dl (6-23); Calcium 8.8 mg/dl (8.6-10.3); Carbon Dioxide 26.0 mmol/L (21-32); Chloride 99.0 mmol/L (98-107); Creatinine Clr Calc Pharmacy 16.0 ml/min; Glucose 182.0 mg/dl (70-99(Fasting)); Potassium 4.2 mmol/L (3.5-5.1); Sodium 136.0 mmol/L (136-145)
--- NOTE | 2025-01-14 10:17 | Podiatry Progress Note ---
Date of Service January 14, 2025 Assessment & Plan (1) Status post transmetatarsal amputation of left foot: (2) Cellulitis of foot, left: (3) Foot pain, left: (4) Surgical wound, non healing: (5) Abscess of left foot: (6) PVD (peripheral vascular disease): (7) Diabetic peripheral neuropathy: (8) Diabetes mellitus with neuropathy: (9) Status post incision and drainage: Plan -All notes, labs, and imaging reviewed -Cultures: Klebsiella P. and Enterococcus Faecalis -CT: 1. Interval postoperative changes. 2. Nonspecific soft tissue fluid collection adjacent to the transmetatarsal amputation site. Differential diagnosis includes postoperative seroma, hematoma, and developing abscess. -Dressing: Xeroform and DSD. QoD changes. -Vascular surgery consulted. Did discuss with Vascular team and plans for an angiogram on Thursday. Appreciate recommendations. -Infectious disease consulted. Antibiotics per Infectious disease. Appreciate recommendations. -S/P left foot incision and drainage and bone biopsy 01/10/25. - S/P Repeat debridement and DPC left foot 01/12/25 - Patient to undergo angiogram on thursday with vascular team. Will follow findings. Appreciate recommendations. Did discuss with patient that he is high risk for a more proximal amputation because of vascular status. Continue with conservative management for now. Will continue to follow patient closely. Admission and Anticipated Discharge Date Admission Date: January 09, 2025 Subjective Patient is a 64 year old male that is s/p left foot incision and drainage and bone biopsy 01/10/25 and Delayed primary closure 01/12/25. Patient was resting comfortably in bed this morning. Dressing intact this morning. Patient was accompanied by today. No new pedal complaints. Review of Systems Review of Systems: All systems reviewed & are unremarkable except as noted in Subjective Physical Exam Cardiovascular: DP and PT pulses are non-palpable. Skin: Surgical TMA incision noted to the left foot. Sutures are intact to medial and central surgical site. Minor pain to palpation, edema and drainage noted today. Necrosis of flap noted laterally. Closed post-op site noted to the lateral foot with small opening to continue allowing for drainage. Neurologic: Protective sensation and light touch sensation diminished today. Results & Data Results & Data Vital Signs (Past 12 Hours) Vital Signs Temp Pulse Pulse Resp BP Pulse Ox O2 Del Method 01/14/25 07:31 69 01/14/25 01:37 36.9 C 70 16 140/68 91 Room Air 01/13/25 23:21 37 C 68 16 129/64 93 Room Air 01/13/25 23:01 Room Air
--- NOTE | 2025-01-14 10:23 | Hospitalist Progress Note ---
Date of Service January 14, 2025 Assessment & Plan (1) Cellulitis of foot, left: (2) Foot pain, left: (3) Status post transmetatarsal amputation of left foot: (4) End stage renal disease on dialysis: (5) Diabetic peripheral neuropathy associated with type 2 diabetes mellitus: (6) Generalized weakness: Plan 64-year-old male who has a significant past medical history of CAD status post CABG x 2, cardiac pacemaker in situ, history of bicuspid aortic valve status post aortic valve replacement, ESRD on HD, history of steal syndrome for AVF, PAD [with history of REIA stent, R SFA/pop lithotripsy/angioplasty for occlusion, R PT/peroneal angioplasty on 07/17], insulin-dependent T2DM, diabetic neuropathy, history of CVA, history of PE who presents to the ED secondary to worsening left foot pain x 3 to 4 days. Pt underwent L TMA on 01/06/[address] Aguilar of [facility] Recently underwent left 2nd and 3rd toe amputations by Dr. Veronica Webster 2/2 chronic osteomyelitis along with amputation of tip of right finger 4/5 distal tip amputations. Left foot abscess/Cellulitis--POA S/P Left TMA on 01/06 Peripheral vascular disease Probable Post op infection H/O MSSA bacteremia - L foot CT Nonspecific soft tissue fluid collection adjacent to the transmeta tarsal amputation site. Differential diagnosis includes postoperative seroma, hematoma, and developing abscess. -Ankle-brachial index: Diminished right ANASTASIIA, indicative of moderate severity peripheral arterial disease. Inability to obtain a left ANASTASIIA due to noncompressible vessels -Normal lactate levels -Blood culture: Negative to date -OR culture growing Klebsiella and enterococcus S/P I&D on 01/10/25 S/P Left foot repeat debridement and delayed primary closure on 01/12/25 Continue vancomycin, ertapenem Podiatry, infectious disease, vascular surgery recs noted Pain control Vascular planning angiogram on Thursday in the laborer/key man, in attempt to open tibial vessels to restore blood flow and help with healing TMA Unlikely UTI UCX growing 3 type of organisms. Likely contaminated He is also on ESRD and has no urinary symptoms ESRD on HD On Thursday schedule HD per Nephro T2DM insulin dependent with neuropathy HbA1c 6.7 Continue insulin per protocol Monitor blood glucose levels CAD hx of CABG Bicuspid AV s/p AVR Cardiac pacemaker insitu HTN Continue ASA, Plavix, Statin, atenolol, amlodipine Hx of CVA continue asa, plavix Generalized deconditioning PT/OT evaluation when appropriate May need rehab placement once stable DVT Px: SQ Heparin, hx of PE in 2010 tx with warfarin x 3 months Code Status Full Code Updated at bedside I spent a total of 35 minutes coordinating, documenting and providing care for this patient excluding time spent in performance of separately billed services Admission and Anticipated Discharge Date Admission Date: January 09, 2025 Subjective Patient seen and examined at bedside He reports some pain in left foot and constipation Denied other complaints on ROS Physical Exam Constitutional: + well hydrated; no acute distress Eyes: PERRL, conjunctivae normal, anicteric sclerae ENMT: external ear and nose normal, oropharynx normal Respiratory: normal respiratory effort, lungs clear to auscultation Cardiovascular: Rate/Rhythm: regular rate and regular rhythm Gastrointestinal (Abdomen): normal bowel sounds, soft, nontender, no hepatosplenomegaly Musculoskeletal: Clean dressing over left foot Neurologic: PERRL, EOMI, accommodation nl, no face palsy, no dysarthria Psychiatric: A+Ox3, euthymic affect Results & Data Results & Data Vital Signs (Past 12 Hours) Vital Signs Temp Pulse Pulse Resp BP Pulse Ox O2 Del Method 01/14/25 07:31 69 01/14/25 01:37 36.9 C 70 16 140/68 91 Room Air 01/13/25 23:21 37 C 68 16 129/64 93 Room Air 01/13/25 23:01 Room Air Laboratory Results Abnormal lab results 01/13/25 01/13/25 01/13/25 Range/Units 17:00 20:22 20:59 WBC (4.8-10.8) K/ul RBC (4.70-6.10) M/uL Hgb (14.0-18.0) g/dL Hct (42.0-52.0) % RDW Std Deviation (36.4-46.3) fL RDW Coeff of Kesha (11.5-14.5) % BUN (6-23) mg/dl Creatinine (0.6-1.4) mg/dl BUN/Creatinine Ratio (10-20) Glucose (70-99(Fasting)) mg/dl POC Glucose 232 H 224 H 192 H (70-99) mg/dl 01/14/25 01/14/25 01/14/25 Range/Units 06:21 08:07 11:30 WBC 17.79 H (4.8-10.8) K/ul RBC 2.81 L (4.70-6.10) M/uL Hgb 8.8 L (14.0-18.0) g/dL Hct 27.5 L (42.0-52.0) % RDW Std Deviation 54.6 H (36.4-46.3) fL RDW Coeff of Kesha 15.2 H (11.5-14.5) % BUN 38 H (6-23) mg/dl Creatinine 5.33 H* D (0.6-1.4) mg/dl BUN/Creatinine Ratio 7.1 L (10-20) Glucose 182 H (70-99(Fasting)) mg/dl POC Glucose 197 H 235 H (70-99) mg/dl
[2025-01-15 06:50] LABS: Hematocrit (blood only) 26.3 % (42.0-52.0); Hemoglobin 8.4 g/dL (14.0-18.0); Mean Corpuscular Hemoglobin 31.3 pg (25.0-34.0); Mean Corpuscular Volume 98.1 fL (80.0-100.0); Platelet Count 379 K/uL (130-400); RDW Standard Deviation 55.8 fL (36.4-46.3); Red Blood Count 2.68 M/uL (4.70-6.10); White Blood Count 16.54 K/ul (4.8-10.8)
[2025-01-15 07:16] LABS: Anion Gap 12.0 (3-11); Blood Urea Nitrogen 59.0 mg/dl (6-23); Calcium 8.7 mg/dl (8.6-10.3); Carbon Dioxide 26.0 mmol/L (21-32); Chloride 97.0 mmol/L (98-107); Creatinine Clr Calc Pharmacy 12.5 ml/min; Glucose 198.0 mg/dl (70-99(Fasting)); Potassium 4.3 mmol/L (3.5-5.1); Sodium 135.0 mmol/L (136-145)
[2025-01-15] MEDS: DOCUSATE SODIUM 100 MG CAP PO SCH (08:11)
[2025-01-15] MEDS: POLYETHYLENE (MIRALAX) 17 GM PACK PO SCH (08:11)
--- NOTE | 2025-01-15 08:50 | Nephrology Progress Note ---
Date of Service January 15, 2025 Assessment & Plan (1) End stage renal disease on dialysis: Plan: ESRD on hemodialysis Thursday. At this time no evidence of fluid overload and no electrolyte issues in fact he has not been eating and drinking for many days now and as a result may even be somewhat volume depleted. had HD 01/13 for 2.5 L UF -next HD in am hemoglobin is low / in 8s consistently and will be dose TRELL aggressively (2) Osteomyelitis of finger: Plan: does have elevated white count. On antibiotics. (3) Gangrene of finger: Plan: patient with extensive issues related with osteomyelitis infection as well as gangrene of finger and toes requiring extensive surgical intervention in the recent past as well as antibiotic therapy. defer to primary team. antibiotics choice will be as per primary team and possibly Infectious Disease as patient is quite complicated Admission and Anticipated Discharge Date Admission Date: January 09, 2025 Subjective vascular procedure planned for am; no sob; pain is better controlled on foot but some back/butt pain Review of Systems 2 Review of Systems: All systems reviewed & are unremarkable except as noted in Subjective Physical Exam 2 Constitutional: well developed and + thin; no acute distress Eyes: EOM intact bilaterally ENMT: Mouth: + dry oral mucous membranes Respiratory: normal respiratory effort Auscultation: + diminished lung sounds Gastrointestinal (Abdomen): Inspection/Auscultation: normal bowel sounds P ercussion/Palpation: abdomen soft; abdomen nontender Musculoskeletal: Extremities: strength 5/5 throughout Skin: no rashes, warm and dry Neurologic: nagel, fluent speech, no tremor Results & Data Vital Signs (Past 12 Hours) Vital Signs Temp Pulse Pulse Resp BP BP Pulse Ox 01/15/25 07:58 36.8 C 72 18 156/75 H 93 01/15/25 07:10 76 01/15/25 03:07 36.8 C 75 16 138/58 L 93 01/14/25 22:00 36.7 C 71 16 119/64 92 01/14/25 21:56 68 O2 Del Method 01/15/25 07:58 Room Air 01/15/25 07:10 01/15/25 03:07 Room Air 01/14/25 22:00 Room Air 01/14/25 21:56 Laboratory Results 01/15/25 06:22 01/15/25 06:22
--- NOTE | 2025-01-15 12:13 | Hospitalist Progress Note ---
Date of Service January 15, 2025 Assessment & Plan (1) Cellulitis of foot, left: (2) Foot pain, left: (3) Status post transmetatarsal amputation of left foot: (4) End stage renal disease on dialysis: (5) Diabetic peripheral neuropathy associated with type 2 diabetes mellitus: (6) Generalized weakness: Plan 64-year-old male who has a significant past medical history of CAD status post CABG x 2, cardiac pacemaker in situ, history of bicuspid aortic valve status post aortic valve replacement, ESRD on HD, history of steal syndrome for AVF, PAD [with history of REIA stent, R SFA/pop lithotripsy/angioplasty for occlusion, R PT/peroneal angioplasty on 07/17], insulin-dependent T2DM, diabetic neuropathy, history of CVA, history of PE who presents to the ED secondary to worsening left foot pain x 3 to 4 days. Pt underwent L TMA on 01/06/[address] Aguilar of [facility] Recently underwent left 2nd and 3rd toe amputations by Dr. Veronica Webster 2/2 chronic osteomyelitis along with amputation of tip of right finger 4/5 distal tip amputations. Left foot abscess/Cellulitis--POA S/P Left TMA on 01/06 Peripheral vascular disease Probable Post op infection H/O MSSA bacteremia - L foot CT Nonspecific soft tissue fluid collection adjacent to the transmeta tarsal amputation site. Differential diagnosis includes postoperative seroma, hematoma, and developing abscess. -Ankle-brachial index: Diminished right ANASTASIIA, indicative of moderate severity peripheral arterial disease. Inability to obtain a left ANASTASIIA due to noncompressible vessels -Normal lactate levels -Blood culture: Negative to date -OR culture growing Klebsiella and enterococcus S/P I&D on 01/10/25 S/P Left foot repeat debridement and delayed primary closure on 01/12/25 Continue vancomycin, ertapenem Podiatry, infectious disease, vascular surgery recs noted Pain control Vascular planning angiogram tomorrow morning in the laborer road, in attempt to open tibial vessels to restore blood flow and help with healing TMA Unlikely UTI UCX growing 3 type of organisms. Likely contaminated He is also on ESRD and has no urinary symptoms ESRD on HD On Thursday schedule HD per Nephro T2DM insulin dependent with neuropathy HbA1c 6.7 Continue insulin per protocol Monitor blood glucose levels CAD hx of CABG Bicuspid AV s/p AVR Cardiac pacemaker insitu HTN Continue ASA, Plavix, Statin, atenolol, amlodipine Hx of CVA continue asa, plavix Generalized deconditioning PT/OT evaluation when appropriate May need rehab placement once stable DVT Px: SQ Heparin, hx of PE in 2010 tx with warfarin x 3 months Code Status Full Code I spent a total of 35 minutes coordinating, documenting and providing care for this patient excluding time spent in performance of separately billed services Admission and Anticipated Discharge Date Admission Date: January 09, 2025 Subjective Patient seen and examined Reports left foot pain No other complaints. No BM per RN Physical Exam Constitutional: + well hydrated; no acute distress Eyes: PERRL, conjunctivae normal, anicteric sclerae ENMT: external ear and nose normal, oropharynx normal Respiratory: normal respiratory effort, lungs clear to auscultation Cardiovascular: Rate/Rhythm: regular rate and regular rhythm Gastrointestinal (Abdomen): normal bowel sounds, soft, nontender, no hepatosplenomegaly Musculoskeletal: Dressing over left foot Neurologic: PERRL, EOMI, accommodation nl, no face palsy, no dysarthria Psychiatric: A+Ox3, euthymic affect Results & Data Results & Data Vital Signs (Past 12 Hours) Vital Signs Temp Pulse Pulse Resp BP BP Pulse Ox 01/15/25 11:44 36.8 C 69 18 136/66 92 01/15/25 09:43 01/15/25 09:08 36.5 C 67 18 103/69 100 01/15/25 07:58 36.8 C 72 18 156/75 H 93 01/15/25 07:10 76 01/15/25 03:07 36.8 C 75 16 138/58 L 93 O2 Del Method 01/15/25 11:44 Room Air 01/15/25 09:43 Room Air 01/15/25 09:08 Room Air 01/15/25 07:58 Room Air 01/15/25 07:10 01/15/25 03:07 Room Air
--- NOTE | 2025-01-15 12:56 | Podiatry Progress Note ---
Date of Service January 15, 2025 Assessment & Plan (1) Status post transmetatarsal amputation of left foot: (2) Cellulitis of foot, left: (3) Foot pain, left: (4) Surgical wound, non healing: (5) Abscess of left foot: (6) PVD (peripheral vascular disease): (7) Diabetic peripheral neuropathy: (8) Diabetes mellitus with neuropathy: (9) Status post incision and drainage: Plan -All notes, labs, and imaging reviewed -Cultures: Klebsiella P. and Enterococcus Faecalis -CT: 1. Interval postoperative changes. 2. Nonspecific soft tissue fluid collection adjacent to the transmetatarsal amputation site. Differential diagnosis includes postoperative seroma, hematoma, and developing abscess. -Dressing: Xeroform and DSD. QoD changes. -Vascular surgery consulted. Did discuss with Vascular team and plans for an angiogram on Thursday. Appreciate recommendations. -Infectious disease consulted. Antibiotics per Infectious disease. Appreciate recommendations. -S/P left foot incision and drainage and bone biopsy 01/10/25. - S/P Repeat debridement and DPC left foot 01/12/25 - Patient to undergo angiogram on thursday with vascular team. Will follow findings. Appreciate recommendations. Did discuss with patient that he is high risk for a more proximal amputation because of vascular status. Continue with conservative management for now. Will continue to follow patient closely. Admission and Anticipated Discharge Date Admission Date: January 09, 2025 Subjective Patient is a 64 year old male that is s/p left foot incision and drainage and bone biopsy 01/10/25 and Delayed primary closure 01/12/25. Patient was resting comfortably in bed this morning. Dressing intact this morning. No new pedal complaints. Review of Systems Review of Systems: All systems reviewed & are unremarkable except as noted in Subjective Physical Exam Cardiovascular: DP and PT pulses are non-palpable. Skin: Surgical TMA incision noted to the left foot. Sutures are intact to medial and central surgical site. Minor pain to palpation, edema and drainage noted today. Necrosis of flap noted laterally. Closed post-op site noted to the lateral foot with small opening to continue allowing for drainage. Neurologic: Protective sensation and light touch sensation diminished today. Results & Data Results & Data Vital Signs (Past 12 Hours) Vital Signs Temp Pulse Pulse Resp BP BP Pulse Ox 01/15/25 11:44 36.8 C 69 18 136/66 92 01/15/25 09:43 01/15/25 09:08 36.5 C 67 18 103/69 100 01/15/25 07:58 36.8 C 72 18 156/75 H 93 01/15/25 07:10 76 01/15/25 03:07 36.8 C 75 16 138/58 L 93 O2 Del Method 01/15/25 11:44 Room Air 01/15/25 09:43 Room Air 01/15/25 09:08 Room Air 01/15/25 07:58 Room Air 01/15/25 07:10 01/15/25 03:07 Room Air
[2025-01-16] MEDS: INSULIN ASPART PER UNIT CHARGE SC SCH ×2 (06:46→17:20)
[2025-01-16] MEDS ORDERED: SODIUM CHLORIDE 0.9% 1,000 ML IV PRN (07:00)
[2025-01-16 07:47] LABS: Hematocrit (blood only) 26.4 % (42.0-52.0); Hemoglobin 8.4 g/dL (14.0-18.0); Mean Corpuscular Hemoglobin 31.0 pg (25.0-34.0); Mean Corpuscular Volume 97.4 fL (80.0-100.0); Platelet Count 391 K/uL (130-400); RDW Standard Deviation 53.9 fL (36.4-46.3); Red Blood Count 2.71 M/uL (4.70-6.10); White Blood Count 14.71 K/ul (4.8-10.8)
[2025-01-16 08:16] LABS: Anion Gap 13.0 (3-11); Calcium 8.6 mg/dl (8.6-10.3); Carbon Dioxide 24.0 mmol/L (21-32); Chloride 96.0 mmol/L (98-107); Potassium 4.3 mmol/L (3.5-5.1); Sodium 133.0 mmol/L (136-145)
[2025-01-16 08:35] LABS: Blood Urea Nitrogen 80.0 mg/dl (6-23); Creatinine Clr Calc Pharmacy 11.2 ml/min; Glucose 198.0 mg/dl (70-99(Fasting))
--- NOTE | 2025-01-16 09:19 | Pre Anesthesia Assessment ---
Date of Service January 16, 2025 Pre Sedation Assessment Vital Signs Temp Pulse Pulse Resp BP BP Pulse Ox 01/16/25 09:02 68 18 135/63 95 01/16/25 09:00 36.7 C 67 19 123/71 95 01/16/25 07:28 71 01/16/25 03:00 36.9 C 74 16 147/74 H 90 01/15/25 22:55 36.9 C 75 18 113/85 93 01/15/25 21:43 73 01/15/25 20:50 01/15/25 20:04 37 C 75 16 136/84 92 01/15/25 14:08 72 01/15/25 11:44 36.8 C 69 18 136/66 92 01/15/25 09:43 O2 Del Method O2 Flow Rate 01/16/25 09:02 Room Air 01/16/25 09:00 Nasal Cannula 3 01/16/25 07:28 01/16/25 03:00 Room Air 01/15/25 22:55 Room Air 01/15/25 21:43 01/15/25 20:50 Room Air 01/15/25 20:04 Room Air 01/15/25 14:08 01/15/25 11:44 Room Air 01/15/25 09:43 Room Air Cardiovascular RRR, no murmur, no edema Respiratory normal respiratory effort, lungs clear to auscultation Pre-Sedation Airway Assessment Smoking Status: Former smoker Hx Sleep Apnea: No Hx Difficult Intubation: No Short, Thick Neck: No Thyromental Distance: < 3.5 Finger Breadths Oral Cavity: + WNL Mallampati Class: III ASA: ASA3 NPO Status Date of Last Intake of Fluids: 01/22/25 Time of Last Intake of Fluids: 23:00 Date of Last Intake of Solid Food: 01/15/25 Time of Last Intake of Solid Foods: 23:00 Procedure Planning Contraindications for Sedation: none Current Medications Reviewed: Yes Notes The planned sedation has been discussed with the patient. Informed Consent was obtained. I have identified the patient, determined the appropriateness of sedation and have assessed the patient immediately prior to the procedure. All medicine(s) and interventions are by my order.
[2025-01-16] MEDS: LIDOCAINE 1% LOCAL 20 ML VIAL ONE (11:24)
[2025-01-16] MEDS: HEPARIN (PORCINE) 1000 UNIT/ML 10 ML (CATH LAB USE ONLY) ONE (11:25)
[2025-01-16] MEDS: MIDAZOLAM HCL 5 MG/ML 1 ML VIAL ONE (11:25)
--- NOTE | 2025-01-16 11:29 | Post Anesthesia Assessment ---
Date of Service January 16, 2025 Post Sedation Assessment Vital Signs Temp Pulse Pulse Resp BP BP Pulse Ox 01/16/25 09:02 68 18 135/63 95 01/16/25 09:00 36.7 C 67 19 123/71 95 01/16/25 07:28 71 01/16/25 03:00 36.9 C 74 16 147/74 H 90 01/15/25 22:55 36.9 C 75 18 113/85 93 01/15/25 21:43 73 01/15/25 20:50 01/15/25 20:04 37 C 75 16 136/84 92 01/15/25 14:08 72 01/15/25 11:44 36.8 C 69 18 136/66 92 O2 Del Method O2 Flow Rate 01/16/25 09:02 Room Air 01/16/25 09:00 Nasal Cannula 3 01/16/25 07:28 01/16/25 03:00 Room Air 01/15/25 22:55 Room Air 01/15/25 21:43 01/15/25 20:50 Room Air 01/15/25 20:04 Room Air 01/15/25 14:08 01/15/25 11:44 Room Air Recovery Score Activity: Moves 4 extremities Respiration: Deep Breath/Cough Circulation: +/-20% PreAnes Value Consciousness: Fully Awake Oxygen Saturation: > 92% On Room Air Post Anesthesia Score: 10 Discharge Sedation Level of Care: Fast Track Phase II Post Sedation Plan On clinical assessment, the patient appears to have tolerated the sedation without complications. Patient is recovering as anticipated. Patient will continue to be monitored by nursing and may be discharged when sedation discharge criteria are met per below protocol. Upon Completions of procedure up to 15 minutes continue every 5 minute vital signs and the P.A.R. score; then discharge to a Phase I or Fast Track to Phase II per the following guidelines: * Discharge Patient to appropriate Phase II area if PAR is 8 or greater or return to pre- procedure baseline. The post - procedure orders will be as directed. * If PAR score is less than 8 or not return to pre-procedure baseline then patient will follow Phase I monitoring till PAR is reached for Phase II. The Phase I may be done in procedure room or may call to secure a Phase I area. * If naloxone or flumazenil are used for reversal, hold in Phase I for continued monitoring from when last reversal dose was given for a minimum of 60 minutes or longer pending the nurse and/or physician discretion of patient condition before discharge to Phase II. Please call the Sedation Physician to re-evaluate and complete post-note for discharge to Phase II area. Do NOT discharge from procedure sedation or Phase 1 until post- sedation evaluation note is complete by procedure /sedation MD Sedation Discharge Instructions to be given to the patient at discharge to home.
--- NOTE | 2025-01-16 11:34 | Endovascular Procedure Note ---
[facility] Endovascular Procedure Rpt Pre & Post Diagnosis Operation Date: 01/16/25 10:00 <No data on this case meets the specified criteria> I identified the patient and participated in the time-out.: Yes Procedure Operation Date: 01/16/25 10:00 Actual Procedures p Angio Extremity Unilateral - Johny Alfred MD US guided access right common femoral artery 3rd order catheterization of left lower extremity abdominal aortogram LLE arteriogram Surgeon Johny Alfred MD Livestock Judging Coach none Estimated Blood Loss 5 Findings Consistent with Post-Op Diagnosis Anesthesia Type RN Sedation Radiation Exposure (mGv) Radiation (mGy): 440 Contrast Contrast: 70 Complications none Disposition Accompanied Patient To Recovery: Yes Disposition: Accounting Manager Assistant Controller Holding Indications Nonhealing wound left foot. Angiogram requested. Description of Procedure A timeout was performed and the patient identified and procedure verified. Conscious sedation was administered under my direction. Both groins were prepped and draped in the usual sterile fashion. The right common femoral artery was identified with ultrasound and was accessed with a micropuncture needle and a mandrel wire was inserted. There was a fair amount of subcutaneous scar tissue from the patient's prior right femoral endarterectomy. After accessing with a microsheath, an Amplatz wire was inserted and over this a 5 [place] sheath was inserted. An Omni Flush catheter was inserted in the distal abdominal aorta and an aortogram was performed demonstrating no significant disease of the infrarenal abdominal aorta or either common or external iliac artery. There were stents in both external iliac arteries that were widely patent. An Omni Flush catheter and a stiff angled Glidewire were then used to selectively catheterize the left common and external common femoral and then superficial femoral and popliteal artery on the left. 6 left lower extremity arteriography demonstrated no significant disease of the common or superficial femoral artery. There was a stent in the superficial femoral artery that was widely patent. The popliteal artery had mild disease directly behind the knee joint but was otherwise patent. The peroneal artery was patent to the ankle. The anterior tibial artery occluded shortly after its origin but then reconstituted beyond this. The posterior tibial artery was chronically occluded. The patient was systemically anticoagulated with heparin to achieve a therapeutic activated clotting time. A 5 [place] 45 cm destination sheath was inserted via the right into the left superficial femoral artery. A 0.035 inch Glidewire and quick cross catheter were then inserted and attempts were made to cross the anterior tibial artery origin. I was able to get an 035 wire in but could not get the quick cross catheter to follow. I switched over to 0.014 inch wire and an 0.014 inch quick cross catheter but could not get the catheter to cross either despite getting the wire into the anterior tibial artery. At that point, I chose to proceed with intravascular lithotripsy to attempt to reach channel the anterior tibial artery. Several passes were made with attempts to pass the Javelin catheter across but these were ultimately unsuccessful. Follow-up arteriogram demonstrated persistent occlusion of the proximal anterior tibial artery and essentially no change from attempts at intervention. I chose not to further pursue at this time given the inability to cross the heavily calcified tibial lesion with anything other than a wire. All wires and catheters were then removed and the sheath was exchanged to a short 5 [place] sheath. The patient was taken to the recovery area in stable condition and tolerated procedure well without immediate complication. Conscious sedation start 0939, and 1121. 2 mg Versed, 175 mcg fentanyl. 440 mGy, 70 cc IV contrast. I attest to the content of the Intraoperative Record and any orders documented therein. Any exceptions are noted below.
--- NOTE | 2025-01-16 12:51 | Hospitalist Progress Note ---
Date of Service January 16, 2025 Assessment & Plan (1) Cellulitis of foot, left: (2) Foot pain, left: (3) Status post transmetatarsal amputation of left foot: (4) End stage renal disease on dialysis: (5) Diabetic peripheral neuropathy associated with type 2 diabetes mellitus: (6) Generalized weakness: Plan 64-year-old male who has a significant past medical history of CAD status post CABG x 2, cardiac pacemaker in situ, history of bicuspid aortic valve status post aortic valve replacement, ESRD on HD, history of steal syndrome for AVF, PAD [with history of REIA stent, R SFA/pop lithotripsy/angioplasty for occlusion, R PT/peroneal angioplasty on 07/17], insulin-dependent T2DM, diabetic neuropathy, history of CVA, history of PE who presents to the ED secondary to worsening left foot pain x 3 to 4 days. Pt underwent L TMA on 01/06/[address] Aguilar of [facility] Recently underwent left 2nd and 3rd toe amputations by Dr. Veronica Webster 2/2 chronic osteomyelitis along with amputation of tip of right finger 4/5 distal tip amputations. Left foot abscess/Cellulitis--POA S/P Left TMA on 01/06 Peripheral vascular disease Probable Post op infection H/O MSSA bacteremia - L foot CT Nonspecific soft tissue fluid collection adjacent to the transmeta tarsal amputation site. Differential diagnosis includes postoperative seroma, hematoma, and developing abscess. -Ankle-brachial index: Diminished right ANASTASIIA, indicative of moderate severity peripheral arterial disease. Inability to obtain a left ANASTASIIA due to noncompressible vessels -Normal lactate levels -Blood culture: Negative to date -OR culture growing Klebsiella and enterococcus S/P I&D on 01/10/25 S/P Left foot repeat debridement and delayed primary closure on 01/12/25 Currently on vancomycin, ertapenem Podiatry, infectious disease, vascular surgery recs noted Pain control Vascular performed angiogram this AM. Will follow up plans Unlikely UTI UCX growing 3 type of organisms. Likely contaminated He is also on ESRD and has no urinary symptoms ESRD on HD On Thursday schedule HD per Nephro T2DM insulin dependent with neuropathy HbA1c 6.7 Continue insulin per protocol Monitor blood glucose levels CAD hx of CABG Bicuspid AV s/p AVR Cardiac pacemaker insitu HTN Continue ASA, Plavix, Statin, atenolol, amlodipine Hx of CVA continue asa, plavix Generalized deconditioning PT/OT evaluation when appropriate May need rehab placement once stable DVT Px: SQ Heparin, hx of PE in 2010 tx with warfarin x 3 months Code Status Full Code Updated at bedside I spent a total of 35 minutes coordinating, documenting and providing care for this patient excluding time spent in performance of separately billed services Admission and Anticipated Discharge Date Admission Date: January 09, 2025 Subjective Patient seen and examined Just returned from the OR No complaints at this time Physical Exam Constitutional: no acute distress Eyes: PERRL, conjunctivae normal, anicteric sclerae ENMT: external ear and nose normal, oropharynx normal Respiratory: normal respiratory effort, lungs clear to auscultation Cardiovascular: Rate/Rhythm: regular rate and regular rhythm Gastrointestinal (Abdomen): normal bowel sounds, soft, nontender, no hepatosplenomegaly Musculoskeletal: Dressing over left foot Neurologic: PERRL, EOMI, accommodation nl, no face palsy, no dysarthria Results & Data Results & Data Vital Signs (Past 12 Hours) Vital Signs Temp Pulse Pulse Pulse Resp BP BP 01/16/25 12:21 68 16 128/61 01/16/25 12:05 68 16 122/64 01/16/25 12:00 70 16 133/71 01/16/25 11:55 69 16 117/59 L 01/16/25 11:51 69 16 129/67 01/16/25 11:34 70 16 139/68 01/16/25 09:02 68 18 135/63 01/16/25 09:00 36.7 C 67 19 123/71 01/16/25 07:28 71 01/16/25 03:00 36.9 C 74 16 147/74 H Pulse Ox O2 Del Method O2 Flow Rate 01/16/25 12:21 98 Room Air 01/16/25 12:05 99 Room Air 01/16/25 12:00 100 Room Air 01/16/25 11:55 100 Room Air 01/16/25 11:51 100 Room Air 01/16/25 11:34 100 Room Air 01/16/25 09:02 95 Room Air 01/16/25 09:00 95 Nasal Cannula 3 01/16/25 07:28 01/16/25 03:00 90 Room Air Laboratory Results Abnormal lab results 01/15/25 01/15/25 01/16/25 Range/Units 16:41 20:03 06:24 WBC (4.8-10.8) K/ul RBC (4.70-6.10) M/uL Hgb (14.0-18.0) g/dL Hct (42.0-52.0) % MCHC (32.0-36.0) g/dL RDW Std Deviation (36.4-46.3) fL RDW Coeff of Kesha (11.5-14.5) % Activ Coag Time Kaolin (94-140) SECONDS Sodium (136-145) mmol/L Chloride (98-107) mmol/L Anion Gap (3-11) BUN (6-23) mg/dl Creatinine (0.6-1.4) mg/dl BUN/Creatinine Ratio (10-20) Glucose (70-99(Fasting)) mg/dl POC Glucose 279 H 161 H 224 H (70-99) mg/dl 01/16/25 01/16/25 01/16/25 Range/Units 07:04 10:18 12:54 WBC 14.71 H (4.8-10.8) K/ul RBC 2.71 L (4.70-6.10) M/uL Hgb 8.4 L (14.0-18.0) g/dL Hct 26.4 L (42.0-52.0) % MCHC 31.8 L (32.0-36.0) g/dL RDW Std Deviation 53.9 H (36.4-46.3) fL RDW Coeff of Kesha 15.3 H (11.5-14.5) % Activ Coag Time Kaolin 193 H (94-140) SECONDS Sodium 133 L (136-145) mmol/L Chloride 96 L (98-107) mmol/L Anion Gap 13 H (3-11) BUN 80 H D (6-23) mg/dl Creatinine 8.21 H* D (0.6-1.4) mg/dl BUN/Creatinine Ratio 9.7 L (10-20) Glucose 198 H (70-99(Fasting)) mg/dl POC Glucose 265 H (70-99) mg/dl
[2025-01-16] MEDS: ATROPINE SULFATE 0.1 MG/ML 10ML SYR IV ONE (13:02)
--- NOTE | 2025-01-16 13:51 | Infectious Disease Progress Nt ---
Date of Service January 16, 2025 Assessment & Plan (1) Abscess of left foot: (2) PVD (peripheral vascular disease): (3) Status post transmetatarsal amputation of left foot: (4) Cellulitis of foot, left: Plan 64 yo M with history of T2DM, diabetic neuropathy, PAD s/p prior revascularizations, CAD s/p CABG x 2, complete heart block s/p pacemaker, bicuspid aortic valve s/p AVR, ESRD on HD, history of steal syndrome for AVF, CVA, PE who presented on 01/09 with worsening L foot pain x 3-4 days, found on CT to have soft tissue fluid collection adjacent to TMA site c/f abscess. Was hospitalized at [facility] 10/10-11/08 with MSSA bacteremia, L foot osteomyelitis s/p L 2nd and 3rd toe amputations, R 4th and 5th finger dry gangrene/osteomyelitis s/p partial amputations. Was seen by Wilda JIM. ANI was negative. He was discharged on cefazolin x 6 weeks through 11/25/24. Pt was recently hospitalized at [facility] 01/04-01/07 due to injuring his L foot at the site of prior amputations. 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 Pt denied fevers, but reported sweats. Has been on Keflex for the last week, which was prescribed at [facility] ER on 01/03 prior to his admission to [facility]. On presentation, pt was afebrile, VSS. Labs showed WBC 22.32, ESR 60, CRP 35.62, procal 2.17. UA with >[address] L foot without contrast showed interval postop changes, nonspecific soft tissue fluid collection adjacent to TMA site for which differential includes seroma, hematoma, developing abscess. L foot XR with no acute osseous findings. Pt was started on vanc and ertapenem. Podiatry was consulted, noted pain to palpation, erythema, and drainage to L lateral foot. Pt taken to the OR on 01/10 for L foot I&D and L metatarsal heads 4 and 5 bone biopsy. Per operative note, incision was deepened down to the level of bone where there was ~5 cc of purulent drainage and necrosis to the proximal tissue. OR cultures growing ESBL Kleb pneumo and E faecalis. Bone biopsy path with acute osteomyelitis. Pt returned to OR on 01/12 for repeat debridement and delayed primary closure. Pt has severe PAD with poor blood flow to the foot, He underwent LLE angiogram on 01/16 which showed 1 vessel runoff to foot and diseased tibial arteries with complete occlusion of proximal AT artery, with some reconstitution via small collaterals Micro: 01/10 L foot tissue cx: ESBL Kleb pneumo, E faecalis ) . GS rare GPCs 01/10 L 4th and 5th metatarsal bone cx: ESBL Kleb pneumo, E faecalis. GS rare GPCs 01/10 L foot deep #2 cx: ESBL Kleb pneumo, E faecalis. GS rare GPCs 01/10 L foot deep cx: ESBL Kleb pneumo (S erta, damian, TMP/SMX. R cipro, levo), E faecalis ( AmP S). GS rare GPCs 01/09 UCx: mixed shazia 01/09 BCx x2: NGTD Prior Micro: 11/17 Back wound cx: ESBL Kleb pneumo, Morganella morganii 10/14 R 4th finger tip cx: MSSA, Enterobacer cloacae complex, Cutibacterium avidum, low counts probable skin shazia 10/12 L toe cx: MSSA, Helcococcus kunzii, Anaerococcus vaginalis, mod probable skin shazia 10/12 BCx x2: MSSA in 2/4 bottles 10/10 BCx x2: MSSA in 4/4 bottles Abx: Vanc 01/09 - 01/16 Ertapenem 01/09 - present Ampicillin 01/16-present #L foot osteomyelitis s/p 2nd and 3rd toe amputation (09/2024) c/b injury/dehiscence s/p TMA (01/06/25), c/b soft tissue abscess s/p I&D and bone biopsy (01/10/25), repeat I&D and delayed primary closure (01/12/25) #T2DM #PAD #Pacemaker in place #MSSA bacteremia 09/2024 thought 2/2 L foot osteomyelitis s/p cefazolin x 6 weeks through 11/25/24. ANI negative #ESRD on HD Discussion He has L foot OM s/p TMA c/b soft tissue abscess sp I & D and Bone biopsy ( polymicrobial). He has severe PAD and underwent LLE angiogram with revascularization attempt. If foot wound continues to deteriorate, he likely needs a more proximal amputation Recommendations: -Discontinued vancomycin -Continued ertapenem and added Ampicillin for coverage of E faecalis ( amp S) and ESBL Kleb - Will follow-up healing post vascular procedure. If attempting to salvage the foot, pt would need 6 weeks of IV antibiotics given osteomyelitis seen on L 4th and 5th metatarsal bone biopsy _follow up with podiatry on plans for further intervention based on healing. ID will continue to follow. Nataliia Welsh MD, MPH Infectious Disease [facility], ID [facility] Call [phone] with questions Admission and Anticipated Discharge Date Admission Date: January 09, 2025 Subjective This patient recommendation is based on a telemedicine consult request which was completed asynchronously through chart review and information provided by the primary physician. The patient was not seen or examined today. The evaluation is consultative in nature and all patient care and treatment decisions can either be accepted or rejected by the patient's primary hospital-based treating physician using their own independent medical judgment for their patient. Time Spent Reviewing Chart: 21 - 30 minutes Afebrile SP LLE angiogram WBC 14.71 E feacalis is amp S Results & Data Vital Signs (Past 12 Hours) Vital Signs Temp Pulse Pulse Pulse Resp BP BP 01/16/25 12:45 36.7 C 68 18 124/62 01/16/25 12:21 68 16 128/61 01/16/25 12:05 68 16 122/64 01/16/25 12:00 70 16 133/71 01/16/25 11:55 69 16 117/59 L 01/16/25 11:51 69 16 129/67 01/16/25 11:34 70 16 139/68 01/16/25 09:02 68 18 135/63 01/16/25 09:00 36.7 C 67 19 123/71 01/16/25 07:28 71 01/16/25 03:00 36.9 C 74 16 147/74 H Pulse Ox O2 Del Method O2 Flow Rate 01/16/25 12:45 96 Room Air 01/16/25 12:21 98 Room Air 01/16/25 12:05 99 Room Air 01/16/25 12:00 100 Room Air 01/16/25 11:55 100 Room Air 01/16/25 11:51 100 Room Air 01/16/25 11:34 100 Room Air 01/16/25 09:02 95 Room Air 01/16/25 09:00 95 Nasal Cannula 3 01/16/25 07:28 01/16/25 03:00 90 Room Air Laboratory Results Short CBC 01/16/25 Range/Units 07:04 WBC 14.71 H (4.8-10.8) K/ul Hgb 8.4 L (14.0-18.0) g/dL Hct 26.4 L (42.0-52.0) % Plt Count 391 (130-400) K/uL BMP 01/16/25 07:04 Sodium 133 L Potassium 4.3 Chloride 96 L Carbon Dioxide 24 BUN 80 H D Creatinine 8.21 H* D Glucose 198 H Calcium 8.6 Microbiology 01/10/25 Unknown Foot,Left Gram Stain - Final 01/10/25 Unknown Foot,Left Aerobic and Anaerobic Culture - Final Klebsiella pneumoniae Enterococcus faecalis 01/10/25 Unknown Foot,Left Gram Stain - Final 01/10/25 Unknown Foot,Left Aerobic and Anaerobic Culture - Final Klebsiella pneumoniae Enterococcus faecalis 01/10/25 Unknown Foot,Left Gram Stain - Final 01/10/25 Unknown Foot,Left Aerobic and Anaerobic Culture - Final Klebsiella pneumoniae Enterococcus faecalis 01/10/25 Unknown Foot,Left Gram Stain - Final 01/10/25 Unknown Foot,Left Aerobic and Anaerobic Culture - Final Klebsiella pneumoniae ESBL Enterococcus faecalis 01/09/25 08:04 Blood Aerobic Blood Culture - Final No growth in Aerobic bottle after 5 days. 01/09/25 08:04 Blood Anaerobic Blood Culture - Final No growth in Anaerobic bottle after 5 days. 01/09/25 07:58 Blood Aerobic Blood Culture - Final No growth in Aerobic bottle after 5 days. 01/09/25 07:58 Blood Anaerobic Blood Culture - Final No growth in Anaerobic bottle after 5 days. 01/09/25 Unknown Urine,Straight Cath Urine Culture - Final Three types of organisms present, all moderate counts. Repeat collection recommended. No further identifications or sensitivities to follow. Medications Administered Home Medications Medication Instructions Recorded Confirmed Last Taken atenolol 50 mg tablet 50 mg PO QAM 03/07/20 01/09/25 07/19/21 insulin aspart U-100 100 unit/mL 1 sliding scale dose subcut UD 03/07/20 01/09/25 07/19/21 12:00 (3 mL) subcutaneous pen (Novolog 10 units FlexPen U-100 Insulin aspart) insulin glargine 100 unit/mL (3 30 unit subcut QAM 03/07/20 01/09/25 07/19/21 mL) subcutaneous pen (Basaglar KwikPen U-100 Insulin) cholecalciferol (vitamin D3) 25 25 mcg PO .3X WEEK 11/01/21 01/09/25 Unknown mcg (1,000 unit) tablet (Vitamin D3) acetaminophen 500 mg tablet 500 - 1,000 mg PO UD PRN Pain 10/10/24 01/09/25 Unknown torsemide 100 mg tablet 100 mg PO DAILY 10/10/24 01/09/25 Unknown aspirin 81 mg tablet,delayed 81 mg PO DAILY #30 tabs 11/08/24 01/09/25 Unknown release clopidogrel 75 mg tablet 75 mg PO HS #30 tabs 11/08/24 01/09/25 Unknown gabapentin 600 mg tablet 600 mg PO TID #30 tabs 11/08/24 01/09/25 Unknown lidocaine 5 % topical patch 1 patch transdermal QAM #15 ea 11/08/24 01/09/25 Unknown cephalexin 500 mg capsule 500 mg PO QID 7 days #28 caps 01/03/25 01/09/25 Unknown amlodipine 5 mg tablet 5 mg PO QAM 01/09/25 01/09/25 Unknown atorvastatin 80 mg tablet 80 mg PO HS 01/09/25 01/09/25 Unknown docusate sodium 100 mg capsule 100 mg PO BID PRN Constipation 01/09/25 01/09/25 Unknown oxycodone 5 mg/5 mL oral solution 2.5 mg PO Q6H PRN Pain, Severe 01/09/25 01/09/25 Unknown Active Medications Generic Name Dose Route Start Last Admin Trade Name Freq PRN Reason Stop Dose Admin Acetaminophen 650 mg 01/09/25 12:20 01/11/25 18:01 Acetaminophen 325 Mg Tab PO 02/08/25 12:19 650 mg Q4H PRN Administration Pain or Fever Acetaminophen 500 mg 01/09/25 12:20 01/16/25 05:16 Acetaminophen 500 Mg Tab PO 02/08/25 12:19 500 mg Q8H ESTHER Administration Amlodipine Besylate 5 mg 01/10/25 09:00 01/16/25 13:01 Amlodipine Besylate 5 Mg Tab PO 02/09/25 08:59 5 mg QAM ESTHER Administration Aspirin 81 mg 01/10/25 09:00 01/16/25 13:00 Aspirin 81 Mg Ectab PO 02/09/25 08:59 81 mg DAILY ESTHER Administration Atenolol 50 mg 01/10/25 09:00 01/16/25 12:58 Atenolol 50 Mg Tablet PO 02/09/25 08:59 50 mg QAM ESTHER Administration Atorvastatin Calcium 80 mg 01/09/25 21:00 01/15/25 20:57 Atorvastatin 40 Mg Tab PO 02/08/25 20:59 80 mg HS ESTHER Administration Clopidogrel Bisulfate 75 mg 01/09/25 21:00 01/15/25 20:57 Clopidogrel Bisulfate 75 Mg Tab PO 02/08/25 20:59 75 mg HS ESTHER Administration Docusate Sodium 100 mg 01/15/25 09:00 01/16/25 13:01 Docusate Sodium 100 Mg Cap PO 02/14/25 08:59 Not Given DAILY ESTHER Gabapentin 600 mg 01/09/25 14:00 01/16/25 12:58 Gabapentin 600 Mg Tab PO 02/08/25 13:59 600 mg TID ESTHER Administration Heparin Sodium (Porcine) 5,000 units 01/09/25 21:00 01/16/25 13:07 Heparin Sod 5,000 Unit/0.5 Ml Vial SQ 02/08/25 20:59 5,000 units Q8 ESTHER Administration Ertapenem 500 mg in 5 mls @ 2 mls/min 01/10/25 09:30 01/15/25 15:11 Invanz 500mg IV 02/21/25 09:29 2 mls/min Q24H ESTHER Administration Insulin Aspart 0 units 01/16/25 06:45 01/16/25 13:10 Insulin Aspart Per Unit Charge SC 02/15/25 06:44 5 units Q6 ESTHER Administration Insulin Glargine 0 - 20 units 01/10/25 09:00 01/16/25 13:09 Lantus Per Unit Charge SQ 02/09/25 08:59 20 units DAILY ESTHER Administration Lactobacillus Acidophilus 1,250 mg 01/10/25 09:00 01/16/25 12:58 Advanced Probiotic 625 Mg Capsule PO 02/09/25 08:59 1,250 mg DAILY ESTHER Administration Melatonin 3 mg 01/09/25 12:20 01/13/25 20:53 Melatonin 3 Mg Tab PO 02/08/25 12:19 3 mg HS PRN Administration Sleep Morphine Sulfate 3 mg 01/09/25 12:20 01/16/25 12:16 Morphine Sulfate 4 Mg/Ml 1 Ml Carp\Vial IV 01/23/25 12:19 3 mg Q4H PRN Administration Severe Pain (Scale 7, 8, 9,10) Oxycodone HCl 5 mg 01/09/25 12:20 01/15/25 14:24 Oxycodone Hcl Soln 5 Mg/5 Ml Udc PO 01/23/25 12:19 5 mg Q6H PRN Administration Moderate Pain (Scale 4, 5, 6) Polyethylene Glycol 17 gm 01/15/25 09:00 01/16/25 13:08 Polyethylene (Miralax) 17 Gm Pack PO 02/14/25 08:59 17 gm DAILY ESTHER Administration Torsemide 100 mg 01/10/25 09:00 01/16/25 13:00 Torsemide 100 Mg Tab PO 02/09/25 08:59 100 mg DAILY ESTHER Administration Vitamin D 25 mcg 01/09/25 12:30 01/16/25 13:01 Cholecalciferol 25 Mcg (1000 Units) Tab PO 02/08/25 12:29 25 mcg MoWeFr@0900 ESTHER Administration
[2025-01-16] MEDS: ERTAPENEM 500MG 500 MG/5 ML SYR IV SCH (16:25)
--- NOTE | 2025-01-16 16:27 | Vascular Surgery Progress Note ---
Date of Service January 16, 2025 Assessment & Plan (1) PVD (peripheral vascular disease): Plan: 64 year old male with long standing history of diabetes and PAD, with multiple lower extremity interventions bilaterally. ABIs were ordered and reviewed, specifically the left side, which demonstrated non-compressible vessels as expected with his diabetes. Waveforms were difficult to assess. Follow up CTA abd/pelvis with runoff demonstrates diffuse atherosclerotic disease and calcifications. On the left specifically he has likely occlusions of the SENIOR ACCOUNTANT CPA and DERIC and peroneal arteries in the calf with poor runoff to the foot, and arteries are heavily calcified. He is now PPD 0 s/p LLE angiogram via RCFA access, showing 1 vessel runoff to foot, and diffusely diseased tibial arteries with complete occlusion of proximal AT artery, with some reconstitution via small collaterals, but also disease in AT distally as well. Attempt was made to cross proximal AT lesion and perform lithotripsy, however was unsuccessful. Recommend continued wound care per podiatry. If foot wound continues to deteriorate, likely will need more proximal amputation, which was discussed with him and his last week as a possibility if revascularization was unsuccessful. Would continue his aspirin, statin and plavix given his extensive PVD. Admission and Anticipated Discharge Date Admission Date: January 09, 2025 Subjective PPD 0 s/p LLE angiogram via RCFA access, showing single vessel runoff to the foot and diffusely diseased tibial arteries, with complete occlusion of proximal AT artery, and distal stenoses of the AT artery with some reconstitution via collaterals, and attempt at lithotripsy at the anterior tibial artery, however was unsuccessful at crossing lesion. He has no pain at right groin access site and feels ok from procedure. Denies any pain in either foot at this time. Physical Exam Physical Exam: WDWN, in no distress, lying in bed right groin dressing clean/dry/intact, groin is soft, with no hematoma appreciated. left foot dressing clean, dry and intact. both legs soft, no discoloration to feet. Results & Data Vital Signs (Past 12 Hours) Vital Signs Temp Pulse Pulse Pulse Resp BP BP 01/16/25 15:15 36.4 C L 64 15 120/62 01/16/25 14:33 65 01/16/25 12:45 36.7 C 68 18 124/62 01/16/25 12:21 68 16 128/61 01/16/25 12:05 68 16 122/64 01/16/25 12:00 70 16 133/71 01/16/25 11:55 69 16 117/59 L 01/16/25 11:51 69 16 129/67 01/16/25 11:34 70 16 139/68 01/16/25 09:02 68 18 135/63 01/16/25 09:00 36.7 C 67 19 123/71 01/16/25 07:28 71 Pulse Ox O2 Del Method O2 Flow Rate 01/16/25 15:15 92 Nasal Cannula 2 01/16/25 14:33 01/16/25 12:45 96 Room Air 01/16/25 12:21 98 Room Air 01/16/25 12:05 99 Room Air 01/16/25 12:00 100 Room Air 01/16/25 11:55 100 Room Air 01/16/25 11:51 100 Room Air 01/16/25 11:34 100 Room Air 01/16/25 09:02 95 Room Air 01/16/25 09:00 95 Nasal Cannula 3 01/16/25 07:28 Laboratory Results 01/16/25 01/16/25 01/16/25 16:03 12:54 10:18 WBC RBC Hgb Hct MCV MCH MCHC RDW Std Deviation RDW Coeff of Kesha Plt Count MPV Activ Coag Time Kaolin 193 H Sodium Potassium Chloride Carbon Dioxide Anion Gap BUN Creatinine Est Cr Clr Drug Dosing eGFR BUN/Creatinine Ratio Glucose POC Glucose 162 H 265 H Calcium Random Vancomycin 01/16/25 01/16/25 01/15/25 07:04 06:24 20:03 WBC 14.71 H RBC 2.71 L Hgb 8.4 L Hct 26.4 L MCV 97.4 MCH 31.0 MCHC 31.8 L RDW Std Deviation 53.9 H RDW Coeff of Kesha 15.3 H Plt Count 391 MPV 10.6 Activ Coag Time Kaolin Sodium 133 L Potassium 4.3 Chloride 96 L Carbon Dioxide 24 Anion Gap 13 H BUN 80 H D Creatinine 8.21 H* D Est Cr Clr Drug Dosing 11.2 eGFR 6.76 BUN/Creatinine Ratio 9.7 L Glucose 198 H POC Glucose 224 H 161 H Calcium 8.6 Random Vancomycin 19.7 01/15/25 16:41 WBC RBC Hgb Hct MCV MCH MCHC RDW Std Deviation RDW Coeff of Kesha Plt Count MPV Activ Coag Time Kaolin Sodium Potassium Chloride Carbon Dioxide Anion Gap BUN Creatinine Est Cr Clr Drug Dosing eGFR BUN/Creatinine Ratio Glucose POC Glucose 279 H Calcium Random Vancomycin Medications Administered Home Medications Medication Instructions Recorded Confirmed Last Taken atenolol 50 mg tablet 50 mg PO QAM 03/07/20 01/09/25 07/19/21 insulin aspart U-100 100 unit/mL 1 sliding scale dose subcut UD 03/07/2001/0907/19/21 12:00 (3 mL) subcutaneous pen (Novolog 10 units FlexPen U-100 Insulin aspart) insulin glargine 100 unit/mL (3 30 unit subcut QAM 03/07/20 01/09/25 07/19/21 mL) subcutaneous pen (Basaglar KwikPen U-100 Insulin) cholecalciferol (vitamin D3) 25 25 mcg PO .3X WEEK 11/01/21 01/09/25 Unknown mcg (1,000 unit) tablet (Vitamin D3) acetaminophen 500 mg tablet 500 - 1,000 mg PO UD PRN Pain 10/10/24 01/09/25 Unknown torsemide 100 mg tablet 100 mg PO DAILY 10/10/24 01/09/25 Unknown aspirin 81 mg tablet,delayed 81 mg PO DAILY #30 tabs 11/08/24 01/09/25 Unknown release clopidogrel 75 mg tablet 75 mg PO HS #30 tabs 11/08/24 01/09/25 Unknown gabapentin 600 mg tablet 600 mg PO TID #30 tabs 11/08/24 01/09/25 Unknown lidocaine 5 % topical patch 1 patch transdermal QAM #15 ea 11/08/24 01/09/25 Unknown cephalexin 500 mg capsule 500 mg PO QID 7 days #28 caps 01/03/25 01/09/25 Unknown amlodipine 5 mg tablet 5 mg PO QAM 01/09/25 01/09/25 Unknown atorvastatin 80 mg tablet 80 mg PO HS 01/09/25 01/09/25 Unknown docusate sodium 100 mg capsule 100 mg PO BID PRN Constipation 01/09/25 01/09/25 Unknown oxycodone 5 mg/5 mL oral solution 2.5 mg PO Q6H PRN Pain, Severe 01/09/25 01/09/25 Unknown Active Medications Generic Name Dose Route Start Last Admin Trade Name Freq PRN Reason Stop Dose Admin Acetaminophen 650 mg 01/09/25 12:20 01/11/25 18:01 Acetaminophen 325 Mg Tab PO 02/08/25 12:19 650 mg Q4H PRN Administration Pain or Fever Acetaminophen 500 mg 01/09/25 12:20 01/16/25 13:49 Acetaminophen 500 Mg Tab PO 02/08/25 12:19 500 mg Q8H ESTHER Administration Amlodipine Besylate 5 mg 01/10/25 09:00 01/16/25 13:01 Amlodipine Besylate 5 Mg Tab PO 02/09/25 08:59 5 mg QAM ESTHER Administration Aspirin 81 mg 01/10/25 09:00 01/16/25 13:00 Aspirin 81 Mg Ectab PO 02/09/25 08:59 81 mg DAILY ESTHER Administration Atenolol 50 mg 01/10/25 09:00 01/16/25 12:58 Atenolol 50 Mg Tablet PO 02/09/25 08:59 50 mg QAM ESTHER Administration Atorvastatin Calcium 80 mg 01/09/25 21:00 01/15/25 20:57 Atorvastatin 40 Mg Tab PO 02/08/25 20:59 80 mg HS ESTHER Administration Clopidogrel Bisulfate 75 mg 01/09/25 21:00 01/15/25 20:57 Clopidogrel Bisulfate 75 Mg Tab PO 02/08/25 20:59 75 mg HS ESTHER Administration Docusate Sodium 100 mg 01/15/25 09:00 01/16/25 13:01 Docusate Sodium 100 Mg Cap PO 02/14/25 08:59 Not Given DAILY ESTHER Gabapentin 600 mg 01/09/25 14:00 01/16/25 13:47 Gabapentin 600 Mg Tab PO 02/08/25 13:59 Not Given TID ESTHER Heparin Sodium (Porcine) 5,000 units 01/09/25 21:00 01/16/25 13:07 Heparin Sod 5,000 Unit/0.5 Ml Vial SQ 02/08/25 20:59 5,000 units Q8 ESTHER Administration Insulin Glargine 0 - 20 units 01/10/25 09:00 01/16/25 13:09 Lantus Per Unit Charge SQ 02/09/25 08:59 20 units DAILY ESTHER Administration Lactobacillus Acidophilus 1,250 mg 01/10/25 09:00 01/16/25 12:58 Advanced Probiotic 625 Mg Capsule PO 02/09/25 08:59 1,250 mg DAILY ESTHER Administration Melatonin 3 mg 01/09/25 12:20 01/13/25 20:53 Melatonin 3 Mg Tab PO 02/08/25 12:19 3 mg HS PRN Administration Sleep Morphine Sulfate 3 mg 01/09/25 12:20 01/16/25 12:16 Morphine Sulfate 4 Mg/Ml 1 Ml Carp\Vial IV 01/23/25 12:19 3 mg Q4H PRN Administration Severe Pain (Scale 7, 8, 9,10) Oxycodone HCl 5 mg 01/09/25 12:20 01/15/25 14:24 Oxycodone Hcl Soln 5 Mg/5 Ml Udc PO 01/23/25 12:19 5 mg Q6H PRN Administration Moderate Pain (Scale 4, 5, 6) Polyethylene Glycol 17 gm 01/15/25 09:00 01/16/25 13:08 Polyethylene (Miralax) 17 Gm Pack PO 02/14/25 08:59 17 gm DAILY ESTHER Administration Torsemide 100 mg 01/10/25 09:00 01/16/25 13:00 Torsemide 100 Mg Tab PO 02/09/25 08:59 100 mg DAILY ESTHER Administration Vitamin D 25 mcg 01/09/25 12:30 01/16/25 13:01 Cholecalciferol 25 Mcg (1000 Units) Tab PO 02/08/25 12:29 25 mcg MoWeFr@0900 ESTHER Administration PG Care Time/CCT Total # of Minutes Spent Total Time Spent with Patient: Total time spent is greater than 50% in coordination of care (as documented) at patient's floor/unit and/or counseling patient:
--- NOTE | 2025-01-16 17:14 | Podiatry Progress Note ---
Date of Service January 16, 2025 Assessment & Plan (1) Status post transmetatarsal amputation of left foot: (2) Cellulitis of foot, left: (3) Foot pain, left: (4) Surgical wound, non healing: (5) Abscess of left foot: (6) PVD (peripheral vascular disease): (7) Diabetic peripheral neuropathy: (8) Diabetes mellitus with neuropathy: (9) Status post incision and drainage: Plan -All notes, labs, and imaging reviewed -Cultures: Klebsiella P. and Enterococcus Faecalis -CT: 1. Interval postoperative changes. 2. Nonspecific soft tissue fluid collection adjacent to the transmetatarsal amputation site. Differential diagnosis includes postoperative seroma, hematoma, and developing abscess. -Dressing: Xeroform and DSD. QoD changes. -Vascular surgery consulted. Did discuss with Vascular team and plans for an angiogram on Thursday. Appreciate recommendations. -Infectious disease consulted. Antibiotics per Infectious disease. Appreciate recommendations. -S/P left foot incision and drainage and bone biopsy 01/10/25. - S/P Repeat debridement and DPC left foot 01/12/25 -Recommend SNF placement for continued care. - Patient underwent angiogram today with vascular team. Findings show EMBROIDERY OPERATOR and DERIC and peroneal arteries in the calf with poor runoff to the foot, and arteries are heavily calcified. Did have one vessel runoff. Appreciate recommendations. Did discuss with patient that he is high risk for a more proximal amputation because of vascular status. Will attempt to allow for TMA to heal. If flap becomes non-viable patient will need a more proximal amputation. No further surgical intervention from podiatry perspective at this time. Continue with conservative management for now. Patient is okay to be discharged from podiatry perspective once medically cleared by all other specialities.Patient to follow up with [facility]. Will continue to follow while patient is in house. Admission and Anticipated Discharge Date Admission Date: January 09, 2025 Subjective Patient is a 64 year old male that is s/p left foot incision and drainage and bone biopsy 01/10/25 and Delayed primary closure 01/12/25. Patient was resting comfortably in bed this morning. Dressing intact this morning. Patient underwent angio procedure this morning. No new pedal complaints. Review of Systems Review of Systems: All systems reviewed & are unremarkable except as noted in Subjective Physical Exam Cardiovascular: DP and PT pulses are non-palpable. Skin: Surgical TMA incision noted to the left foot. Sutures are intact to medial and central surgical site. Minor pain to palpation, edema and drainage noted today. Necrosis of flap noted laterally. Closed post-op site noted to the lateral foot with small opening to continue allowing for drainage. Neurologic: Protective sensation and light touch sensation diminished today. Results & Data Results & Data Vital Signs (Past 12 Hours) Vital Signs Temp Pulse Pulse Pulse Resp BP BP 01/16/25 15:15 36.4 C L 64 15 120/62 01/16/25 14:33 65 01/16/25 12:45 01/16/25 12:45 36.7 C 68 18 124/62 01/16/25 12:21 68 16 128/61 01/16/25 12:05 68 16 122/64 01/16/25 12:00 70 16 133/71 01/16/25 11:55 69 16 117/59 L 01/16/25 11:51 69 16 129/67 01/16/25 11:34 70 16 139/68 01/16/25 09:02 68 18 135/63 01/16/25 09:00 36.7 C 67 19 123/71 01/16/25 07:28 71 Pulse Ox O2 Del Method O2 Flow Rate 01/16/25 15:15 92 Nasal Cannula 2 01/16/25 14:33 01/16/25 12:45 Nasal Cannula 2 01/16/25 12:45 96 Room Air 01/16/25 12:21 98 Room Air 01/16/25 12:05 99 Room Air 01/16/25 12:00 100 Room Air 01/16/25 11:55 100 Room Air 01/16/25 11:51 100 Room Air 01/16/25 11:34 100 Room Air 01/16/25 09:02 95 Room Air 01/16/25 09:00 95 Nasal Cannula 3 01/16/25 07:28
[2025-01-16] MEDS: AMPICILLIN 2,000 MG in SODIUM CHLOR 0.9% MINI-B 100 ML IV SCH (21:14)
[2025-01-17 06:31] LABS: Hematocrit (blood only) 26.1 % (42.0-52.0); Hemoglobin 8.7 g/dL (14.0-18.0); Mean Corpuscular Hemoglobin 32.5 pg (25.0-34.0); Mean Corpuscular Volume 97.4 fL (80.0-100.0); Platelet Count 393 K/uL (130-400); RDW Standard Deviation 54.6 fL (36.4-46.3); Red Blood Count 2.68 M/uL (4.70-6.10); White Blood Count 16.31 K/ul (4.8-10.8)
[2025-01-17 06:57] LABS: Anion Gap 15.0 (3-11); Calcium 8.6 mg/dl (8.6-10.3); Carbon Dioxide 21.0 mmol/L (21-32); Chloride 97.0 mmol/L (98-107); Potassium 4.8 mmol/L (3.5-5.1); Sodium 133.0 mmol/L (136-145)
[2025-01-17 07:08] LABS: Blood Urea Nitrogen 92.0 mg/dl (6-23); Creatinine Clr Calc Pharmacy 11.4 ml/min; Glucose 97.0 mg/dl (70-99(Fasting))
--- NOTE | 2025-01-17 08:38 | Vascular Surgery Progress Note ---
Date of Service January 17, 2025 Assessment & Plan (1) PVD (peripheral vascular disease): Plan: 64 year old male with long standing history of diabetes and PAD, with multiple lower extremity interventions bilaterally. ABIs were ordered and reviewed, specifically the left side, which demonstrated non-compressible vessels as expected with his diabetes. Waveforms were difficult to assess. Follow up CTA abd/pelvis with runoff demonstrates diffuse atherosclerotic disease and calcifications. On the left specifically he has likely occlusions of the VOCATIONAL COUNSELOR and DERIC and peroneal arteries in the calf with poor runoff to the foot, and arteries are heavily calcified. He is now PPD 1 s/p LLE angiogram via RCFA access, showing 1 vessel runoff to foot, and a patent peroneal artery and complete occlusion of proximal AT artery, with some reconstitution via small collaterals, but also disease in AT distally as well, and chronic occlusion of the posterior tibial artery as well. Attempt was made to cross proximal AT lesion and perform lithotripsy, however was un successful. Recommend continued wound care per podiatry. If foot wound continues to deteriorate, will need more proximal amputation, which was discussed with him and his last week as a possibility if revascularization was unsuccessful. Appreciate wound care recommendations. Would continue his aspirin, statin and plavix given his extensive PVD. Admission and Anticipated Discharge Date Admission Date: January 09, 2025 Subjective PPD 1 s/p LLE angio via RCFA access. No complaints of pain in feet or groin this morning. Remains with elevated WBC count at 16, on antibiotics. No fevers. Physical Exam Physical Exam: WDWN, in no distress, lying in bed right groin dressing clean/dry/intact, groin is soft, with no hematoma appreciated. left foot dressing clean, dry and intact. both legs soft, no discoloration to feet. Results & Data Vital Signs (Past 12 Hours) Vital Signs Temp Pulse Pulse Pulse Resp BP BP 01/17/25 08:20 36.3 C L 75 18 114/59 L 01/17/25 04:10 36.4 C L 73 16 151/82 H 01/17/25 00:21 36.5 C 67 16 152/77 H 01/16/25 23:00 66 Pulse Ox O2 Del Method O2 Flow Rate 01/17/25 08:20 95 Nasal Cannula 2 01/17/25 04:10 94 Nasal Cannula 2 01/17/25 00:21 94 Nasal Cannula 2 01/16/25 23:00 Laboratory Results 01/17/25 01/17/25 01/16/25 07:42 05:58 20:47 WBC 16.31 H RBC 2.68 L Hgb 8.7 L Hct 26.1 L MCV 97.4 MCH 32.5 MCHC 33.3 RDW Std Deviation 54.6 H RDW Coeff of Kesha 15.5 H Plt Count 393 MPV 10.5 Activ Coag Time Kaolin Sodium 133 L Potassium 4.8 Chloride 97 L Carbon Dioxide 21 Anion Gap 15 H BUN 92 H Creatinine 8.16 H* Est Cr Clr Drug Dosing 11.4 eGFR 6.81 BUN/Creatinine Ratio 11.3 Glucose 97 POC Glucose 119 H 127 H Calcium 8.6 01/16/25 01/16/25 01/16/25 16:03 12:54 10:18 WBC RBC Hgb Hct MCV MCH MCHC RDW Std Deviation RDW Coeff of Kesha Plt Count MPV Activ Coag Time Kaolin 193 H Sodium Potassium Chloride Carbon Dioxide Anion Gap BUN Creatinine Est Cr Clr Drug Dosing eGFR BUN/Creatinine Ratio Glucose POC Glucose 162 H 265 H Calcium Medications Administered Home Medications Medication Instructions Recorded Confirmed Last Taken atenolol 50 mg tablet 50 mg PO [facility] 03/07/20 01/09/25 07/19/21 insulin aspart U-100 100 unit/mL 1 sliding scale dose subcut UD 03/07/20 01/09/25 07/19/21 12:00 (3 mL) subcutaneous pen (Novolog 10 units FlexPen U-100 Insulin aspart) insulin glargine 100 unit/mL (3 30 unit subcut [facility] 03/07/20 01/09/25 07/19/21 mL) subcutaneous pen (Basaglar KwikPen U-100 Insulin) cholecalciferol (vitamin D3) 25 25 mcg PO .3X WEEK 11/01/21 01/09/25 Unknown mcg (1,000 unit) tablet (Vitamin D3) acetaminophen 500 mg tablet 500 - 1,000 mg PO UD PRN Pain 10/10/24 01/09/25 Unknown torsemide 100 mg tablet 100 mg PO DAILY 10/10/24 01/09/25 Unknown aspirin 81 mg tablet,delayed 81 mg PO DAILY #30 tabs 11/08/24 01/09/25 Unknown release clopidogrel 75 mg tablet 75 mg PO HS #30 tabs 11/08/24 01/09/25 Unknown gabapentin 600 mg tablet 600 mg PO TID #30 tabs 11/08/24 01/09/25 Unknown lidocaine 5 % topical patch 1 patch transdermal QAM #15 ea 11/08/24 01/09/25 Unknown cephalexin 500 mg capsule 500 mg PO QID 7 days #28 caps 01/03/25 01/09/25 Unknown amlodipine 5 mg tablet 5 mg PO QAM 01/09/25 01/09/25 Unknown atorvastatin 80 mg tablet 80 mg PO HS 01/09/25 01/09/25 Unknown docusate sodium 100 mg capsule 100 mg PO BID PRN Constipation 01/09/25 01/09/25 Unknown oxycodone 5 mg/5 mL oral solution 2.5 mg PO Q6H PRN Pain, Severe 01/09/25 01/09/25 Unknown Active Medications Generic Name Dose Route Start Last Admin Trade Name Freq PRN Reason Stop Dose Admin Acetaminophen 650 mg 01/09/25 12:20 01/11/25 18:01 Acetaminophen 325 Mg Tab PO 02/08/25 12:19 650 mg Q4H PRN Administration Pain or Fever Acetaminophen 500 mg 01/09/25 12:20 01/17/25 05:07 Acetaminophen 500 Mg Tab PO 02/08/25 12:19 Not Given Q8H ESTHER Amlodipine Besylate 5 mg 01/10/25 09:00 01/16/25 13:01 Amlodipine Besylate 5 Mg Tab PO 02/09/25 08:59 5 mg QAM ESTHER Administration Aspirin 81 mg 01/10/25 09:00 01/16/25 13:00 Aspirin 81 Mg Ectab PO 02/09/25 08:59 81 mg DAILY ESTHER Administration Atenolol 50 mg 01/10/25 09:00 01/16/25 12:58 Atenolol 50 Mg Tablet PO 02/09/25 08:59 50 mg QAM ESTHER Administration Atorvastatin Calcium 80 mg 01/09/25 21:00 01/16/25 21:14 Atorvastatin 40 Mg Tab PO 02/08/25 20:59 80 mg HS ESTHER Administration Clopidogrel Bisulfate 75 mg 01/09/25 21:00 01/16/25 21:14 Clopidogrel Bisulfate 75 Mg Tab PO 02/08/25 20:59 75 mg HS ESTHER Administration Docusate Sodium 100 mg 01/15/25 09:00 01/16/25 13:01 Docusate Sodium 100 Mg Cap PO 02/14/25 08:59 Not Given DAILY ESTHER Gabapentin 600 mg 01/09/25 14:00 01/16/25 21:13 Gabapentin 600 Mg Tab PO 02/08/25 13:59 600 mg TID ESTHER Administration Heparin Sodium (Porcine) 5,000 units 01/09/25 21:00 01/17/25 05:50 Heparin Sod 5,000 Unit/0.5 Ml Vial SQ 02/08/25 20:59 5,000 units Q8 ESTHER Administration Ertapenem 500 mg in 5 mls @ 2 mls/min 01/16/25 16:00 01/16/25 16:25 Invanz 500mg IV 02/27/25 15:59 2 mls/min Q24H ESTHER Administration Ampicillin Sodium 2,000 mg/ 100 mls @ 200 mls/hr 01/16/25 21:00 01/16/25 21:49 Sodium Chloride IV 02/27/25 20:59 Infused Q12 ESTHER Infusion Insulin Aspart 0 units 01/16/25 16:30 01/17/25 08:31 Insulin Aspart Per Unit Charge SC 02/15/25 16:29 2 units ACHS ESTHER Administration Insulin Glargine 0 - 20 units 01/10/25 09:00 01/16/25 13:09 Lantus Per Unit Charge SQ 02/09/25 08:59 20 units DAILY ESTHER Administration Lactobacillus Acidophilus 1,250 mg 01/10/25 09:00 01/16/25 12:58 Advanced Probiotic 625 Mg Capsule PO 02/09/25 08:59 1,250 mg DAILY ESTHER Administration Melatonin 3 mg 01/09/25 12:20 01/13/25 20:53 Melatonin 3 Mg Tab PO 02/08/25 12:19 3 mg HS PRN Administration Sleep Morphine Sulfate 3 mg 01/09/25 12:20 01/16/25 12:16 Morphine Sulfate 4 Mg/Ml 1 Ml Carp\Vial IV 01/23/25 12:19 3 mg Q4H PRN Administration Severe Pain (Scale 7, 8, 9,10) Oxycodone HCl 5 mg 01/09/25 12:20 01/15/25 14:24 Oxycodone Hcl Soln 5 Mg/5 Ml Udc PO 01/23/25 12:19 5 mg Q6H PRN Administration Moderate Pain (Scale 4, 5, 6) Polyethylene Glycol 17 gm 01/15/25 09:00 01/16/25 13:08 Polyethylene (Miralax) 17 Gm Pack PO 02/14/25 08:59 17 gm DAILY ESTHER Administration Torsemide 100 mg 01/10/25 09:00 01/16/25 13:00 Torsemide 100 Mg Tab PO 02/09/25 08:59 100 mg DAILY ESTHER Administration Vitamin D 25 mcg 01/09/25 12:30 01/16/25 13:01 Cholecalciferol 25 Mcg (1000 Units) Tab PO 02/08/25 12:29 25 mcg MoWeFr@0900 ESTHER Administration PG Care Time/CCT Total # of Minutes Spent Total Time Spent with Patient: Total time spent is greater than 50% in coordination of care (as documented) at patient's floor/unit and/or counseling patient:
--- NOTE | 2025-01-17 09:04 | Hospitalist Progress Note ---
Date of Service January 17, 2025 Assessment & Plan (1) Cellulitis of foot, left: (2) Foot pain, left: (3) Status post transmetatarsal amputation of left foot: (4) End stage renal disease on dialysis: (5) Diabetic peripheral neuropathy associated with type 2 diabetes mellitus: (6) Generalized weakness: Plan 64-year-old male who has a significant past medical history of CAD status post CABG x 2, cardiac pacemaker in situ, history of bicuspid aortic valve status post aortic valve replacement, ESRD on HD, history of steal syndrome for AVF, PAD [with history of REIA stent, R SFA/pop lithotripsy/angioplasty for occlusion, R PT/peroneal angioplasty on 07/17], insulin-dependent T2DM, diabetic neuropathy, history of CVA, history of PE who presents to the ED secondary to worsening left foot pain x 3 to 4 days. Pt underwent L TMA on 01/06/[address] Aguilar of [facility] Pod[facility] Recently underwent left 2nd and 3rd toe amputations by Dr. Veronica Webster 2/2 chronic osteomyelitis along with amputation of tip of right finger 4/5 distal tip amputations. Left foot abscess/Cellulitis--POA S/P Left TMA on 01/06 Peripheral vascular disease Probable Post op infection H/O MSSA bacteremia - L foot CT Nonspecific soft tissue fluid collection adjacent to the transmeta tarsal amputation site. Differential diagnosis includes postoperative seroma, hematoma, and developing abscess. -Ankle-brachial index: Diminished right ANASTASIIA, indicative of moderate severity peripheral arterial disease. Inability to obtain a left ANASTASIIA due to noncompressible vessels -Normal lactate levels -Blood culture: Negative to date -OR culture growing Klebsiella and enterococcus S/P I&D on 01/10/25 S/P Left foot repeat debridement and delayed primary closure on 01/12/25 S/p LLE Angiogram by Vascular surgery on 01/16/25 Was initially on vancomycin, ertapenem. ID changed vancomycin to ampicillin Per Vascular surgery, LLE angiogram showed 1 vessel runoff to foot, and a patent peroneal artery and complete occlusion of proximal AT artery, with some reconstitution via small collaterals, but also disease in AT distally as well, and chronic occlusion of the posterior tibial artery as well. Attempt was made to cross proximal AT lesion and perform lithotripsy, however was unsuccessful. Per Podiatry, will attempt to allow TMA to heal. If flap is not viable or not healing, patient may need more proximal amputation. aware Discussed with ID this AM ID will put in final recs regarding antibiotics. Will need 6 weeks of IV antibiotics Discussed with Nephro who will prefer midline as opposed to PICC Unlikely UTI UCX growing 3 type of organisms. Likely contaminated He is also on ESRD and has no urinary symptoms ESRD on HD On Thursday schedule HD per Nephro T2DM insulin dependent with neuropathy HbA1c 6.7 Continue insulin per protocol Monitor blood glucose levels CAD hx of CABG Bicuspid AV s/p AVR Cardiac pacemaker insitu HTN Continue ASA, Plavix, Statin, atenolol, amlodipine Hx of CVA continue asa, plavix PT/OT evaluation noted CM to start working on placement DVT Px: SQ Heparin, hx of PE in 2010 tx with warfarin x 3 months Code Status Full Code I spent a total of 55 minutes coordinating, documenting and providing care for this patient excluding time spent in performance of separately billed services Admission and Anticipated Discharge Date Admission Date: January 09, 2025 Subjective Patient seen and examined Reports Left foot pain is controlled RN reports patient occasionally disoriented No new complaints on ROS Physical Exam Constitutional: + well hydrated; no acute distress Eyes: PERRL, conjunctivae normal, anicteric sclerae ENMT: external ear and nose normal, oropharynx normal Respiratory: normal respiratory effort, lungs clear to auscultation Cardiovascular: Rate/Rhythm: regular rate and regular rhythm Gastrointestinal (Abdomen): normal bowel sounds, soft, nontender, no hepatosplenomegaly Musculoskeletal: Dressing over left foot Neurologic: PERRL, EOMI, accommodation nl, no face palsy, no dysarthria Psychiatric: Alert and oriented to person, place and month. Cooperative Results & Data Results & Data Vital Signs (Past 12 Hours) Vital Signs Temp Pulse Pulse Pulse Resp BP BP 01/17/25 08:20 36.3 C L 75 18 114/59 L 01/17/25 04:10 36.4 C L 73 16 151/82 H 01/17/25 00:21 36.5 C 67 16 152/77 H 01/16/25 23:00 66 Pulse Ox O2 Del Method O2 Flow Rate 01/17/25 08:20 95 Nasal Cannula 2 01/17/25 04:10 94 Nasal Cannula 2 01/17/25 00:21 94 Nasal Cannula 2 01/16/25 23:00 Laboratory Results Abnormal lab results 01/16/25 01/16/25 01/16/25 Range/Units 12:54 16:03 20:47 WBC (4.8-10.8) K/ul RBC (4.70-6.10) M/uL Hgb (14.0-18.0) g/dL Hct (42.0-52.0) % RDW Std Deviation (36.4-46.3) fL RDW Coeff of Kesha (11.5-14.5) % Sodium (136-145) mmol/L Chloride (98-107) mmol/L Anion Gap (3-11) BUN (6-23) mg/dl Creatinine (0.6-1.4) mg/dl POC Glucose 265 H 162 H 127 H (70-99) mg/dl 01/17/25 01/17/25 Range/Units 05:58 07:42 WBC 16.31 H (4.8-10.8) K/ul RBC 2.68 L (4.70-6.10) M/uL Hgb 8.7 L (14.0-18.0) g/dL Hct 26.1 L (42.0-52.0) % RDW Std Deviation 54.6 H (36.4-46.3) fL RDW Coeff of Kesha 15.5 H (11.5-14.5) % Sodium 133 L (136-145) mmol/L Chloride 97 L (98-107) mmol/L Anion Gap 15 H (3-11) BUN 92 H (6-23) mg/dl Creatinine 8.16 H* (0.6-1.4) mg/dl POC Glucose 119 H (70-99) mg/dl
[2025-01-17] MEDS: HEPARIN SOD (PORCINE) 1000 UNIT/ML IV ONE (09:39)
--- NOTE | 2025-01-17 11:03 | Podiatry Progress Note ---
Date of Service January 17, 2025 Assessment & Plan (1) Status post transmetatarsal amputation of left foot: (2) Cellulitis of foot, left: (3) Foot pain, left: (4) Surgical wound, non healing: (5) Abscess of left foot: (6) PVD (peripheral vascular disease): (7) Diabetic peripheral neuropathy: (8) Diabetes mellitus with neuropathy: (9) Status post incision and drainage: Plan -All notes, labs, and imaging reviewed -Cultures: Klebsiella P. and Enterococcus Faecalis -CT: 1. Interval postoperative changes. 2. Nonspecific soft tissue fluid collection adjacent to the transmetatarsal amputation site. Differential diagnosis includes postoperative seroma, hematoma, and developing abscess. -Dressing: Xeroform and DSD. QoD changes. -Vascular surgery consulted. Did discuss with Vascular team and plans for an angiogram on Thursday. Appreciate recommendations. -Infectious disease consulted. Antibiotics per Infectious disease. Appreciate recommendations. -S/P left foot incision and drainage and bone biopsy 01/10/25. - S/P Repeat debridement and DPC left foot 01/12/25 -Recommend SNF placement for continued care. - Patient underwent angiogram with vascular team. 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 Did have one vessel runoff. Appreciate recommendations. Did discuss with patient that he is high risk for a more proximal amputation because of vascular status. Will attempt to allow for TMA to heal. If flap becomes non- viable patient will need a more proximal amputation. No further surgical intervention from podiatry perspective at this time. Continue with conservative management for now. Patient is okay to be discharged from podiatry perspective once medically cleared by all other specialities. Will continue to follow patient while inpatient. Patient to follow up with me at [address] [place] [address] once discharged from the hospital. Admission and Anticipated Discharge Date Admission Date: January 09, 2025 Subjective Patient was away from room today. Will attempt to see patient later today. Review of Systems Review of Systems: All systems reviewed & are unremarkable except as noted in HPI & below Physical Exam Cardiovascular: DP and PT pulses are non-palpable. Skin: Surgical TMA incision noted to the left foot. Sutures are intact to medial and central surgical site. Minor pain to palpation, edema and drainage noted today. Necrosis of flap noted laterally. Closed post-op site noted to the lateral foot with small opening to continue allowing for drainage. Neurologic: Protective sensation and light touch sensation diminished today. Results & Data Results & Data Vital Signs (Past 12 Hours) Vital Signs Temp Pulse Pulse Pulse Pulse Resp BP 01/17/25 10:30 78 102/63 01/17/25 10:00 74 118/64 01/17/25 09:30 73 120/72 01/17/25 09:15 71 104/69 01/17/25 09:10 36.9 C 71 01/17/25 08:20 36.3 C L 75 18 01/17/25 07:45 01/17/25 04:10 36.4 C L 73 16 01/17/25 00:21 36.5 C 67 16 BP BP Pulse Ox O2 Del Method O2 Flow Rate 01/17/25 10:30 01/17/25 10:00 01/17/25 09:30 01/17/25 09:15 01/17/25 09:10 01/17/25 08:20 114/59 L 95 Nasal Cannula 2 01/17/25 07:45 Nasal Cannula 2 01/17/25 04:10 151/82 H 94 Nasal Cannula 2 01/17/25 00:21 152/77 H 94 Nasal Cannula 2
[2025-01-17] MEDS: HEPARIN SOD (PORCINE) 1000 UNIT/ML IV SCH (11:14)
[2025-01-17] MEDS: EPOETIN ALFA 20,000 UNITS/ML VIAL IV ONE (11:14)
--- NOTE | 2025-01-17 11:37 | Infectious Disease Progress Nt ---
Date of Service January 17, 2025 Assessment & Plan (1) Abscess of left foot: (2) PVD (peripheral vascular disease): (3) Status post transmetatarsal amputation of left foot: (4) Cellulitis of foot, left: Plan 64 yo M with history of T2DM, diabetic neuropathy, PAD s/p prior revascularizations, CAD s/p CABG x 2, complete heart block s/p pacemaker, bicuspid aortic valve s/p AVR, ESRD on HD, history of steal syndrome for AVF, CVA, PE who presented on 01/09 with worsening L foot pain x 3-4 days, found on CT to have soft tissue fluid collection adjacent to TMA site c/f abscess. Was hospitalized at [facility] 10/10-11/08 with MSSA bacteremia, L foot osteomyelitis s/p L 2nd and 3rd toe amputations, R 4th and 5th finger dry gangrene/osteomyelitis s/p partial amputations. Was seen by Wilda JIM. ANI was negative. He was discharged on cefazolin x 6 weeks through 11/25/24. Pt was recently hospitalized at [facility] 01/04-01/07 due to injuring his L foot at the site of prior amputations. He was seen by his electrical repairer Dr. Aguilar and underwent L TMA on 01/06/25. Pt denied fevers, but reported sweats. Has been on Keflex for the last week, which was prescribed at [facility] ER on 01/03 prior to his admission to [facility]. On presentation, pt was afebrile, VSS. Labs showed WBC 22.32, ESR 60, CRP 35.62, procal 2.17. UA with >[address] L foot without contrast showed interval postop changes, nonspecific soft tissue fluid collection adjacent to TMA site for which differential includes seroma, hematoma, developing abscess. L foot XR with no acute osseous findings. Pt was started on vanc and ertapenem. Podiatry was consulted, noted pain to palpation, erythema, and drainage to L lateral foot. Pt taken to the OR on 01/10 for L foot I&D and L metatarsal heads 4 and 5 bone biopsy. Per operative note, incision was deepened down to the level of bone where there was ~5 cc of purulent drainage and necrosis to the proximal tissue. OR cultures growing ESBL Kleb pneumo and E faecalis. Bone biopsy path with acute osteomyelitis. Pt returned to OR on 01/12 for repeat debridement and delayed primary closure. Pt has severe PAD with poor blood flow to the foot, He underwent LLE angiogram on 01/16 which showed 1 vessel runoff to foot "and a patent peroneal artery and complete occlusion of proximal AT artery, with some reconstitution via small collaterals, but also disease in AT distally as well, and chronic occlusion of the posterior tibial artery as well. Attempt was made to cross proximal AT lesion and perform lithotripsy, however was unsuccessful" per vascular documentation Micro: 01/10 L foot tissue cx: ESBL Kleb pneumo, E faecalis ) . GS rare GPCs 01/10 L 4th and 5th metatarsal bone cx: ESBL Kleb pneumo, E faecalis. GS rare GPCs 01/10 L foot deep #2 cx: ESBL Kleb pneumo, E faecalis. GS rare GPCs 01/10 L foot deep cx: ESBL Kleb pneumo (S erta, damian, TMP/SMX. R cipro, levo), E faecalis ( AmP S). GS rare GPCs 01/09 UCx: mixed shazia 01/09 BCx x2: NGTD Prior Micro: 11/17 Back wound cx: ESBL Kleb pneumo, Morganella morganii 10/14 R 4th finger tip cx: MSSA, Enterobacter cloacae complex, Cutibacterium avidum, low counts probable skin shazia 10/12 L toe cx: MSSA, Helcococcus kunzii, Anaerococcus vaginalis, mod probable skin shazia 10/12 BCx x2: MSSA in 2/4 bottles 10/10 BCx x2: MSSA in 4/4 bottles Abx: Vanc 01/09 - 01/16 Ertapenem 01/09 - present Ampicillin 01/16-present #L foot osteomyelitis s/p 2nd and 3rd toe amputation (09/2024) c/b injury/dehiscence s/p TMA (01/06/25), c/b soft tissue abscess s/p I&D and bone biopsy (01/10/25), repeat I&D and delayed primary closure (01/12/25) #T2DM #PAD #Pacemaker in place #MSSA bacteremia 09/2024 thought 2/2 L foot osteomyelitis s/p cefazolin x 6 weeks through 10/3/25. ANI negative #ESRD on HD # Daptomycin allergy: racheal Discussion He has L foot OM s/p TMA c/b soft tissue abscess sp I & D and Bone biopsy ( polymicrobial). He has severe PAD and underwent LLE angiogram with magaly scularization attempt. If foot wound continues to deteriorate, he likely needs a more proximal amputation Recommendations: -Continue ertapenem 500 mg IV daily for ESBL Kleb -Continue Ampicillin 2 g IV q 12h for coverage of E faecalis ( amp S). Podiatry will follow-up healing post vascular procedure. Since attempting to salvage the foot at this time, pt will need 6 weeks of IV antibiotics given osteomyelitis seen on L 4th and 5th metatarsal bone biopsy ID will sign off . 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 Oral suppression after cessation of IV antibiotics (drug, dose, duration): No Labs should be faxed to ID office attention Yolette Foster [facility] [phone] Labs needed and frequency Weekly CMP, CBC with diff Please follow up with [facility] outpatient clinic Clinic Address [address] [place] [address] Office (P) [phone] Appointment-time frame 4 weeks Nataliia Welsh MD, MPH Infectious Disease [facility] Call [phone] with questions Admission and Anticipated Discharge Date Admission Date: January 09, 2025 Subjective This patient recommendation is based on a telemedicine consult request which was completed asynchronously through chart review and information provided by the primary physician. The patient was not seen or examined today. The evaluation is consultative in nature and all patient care and treatment decisions can either be accepted or rejected by the patient's primary hospital-based treating physician using their own independent medical judgment for their patient. Time Spent Reviewing Chart: 31+ minutes No plans for surgical intervention at this time . Podiatry would like to monitor wound on abx for healing Afebrile WBC up to 16.31 ( post procedure yesterday) Results & Data Vital Signs (Past 12 Hours) Vital Signs Temp Pulse Pulse Pulse Pulse Resp BP 01/17/25 11:00 74 122/73 01/17/25 10:30 78 102/63 01/17/25 10:00 74 118/64 01/17/25 09:30 73 120/72 01/17/25 09:15 71 104/69 01/17/25 09:10 36.9 C 71 01/17/25 08:20 36.3 C L 75 18 01/17/25 07:45 01/17/25 04:10 36.4 C L 73 16 01/17/25 00:21 36.5 C 67 16 BP BP Pulse Ox O2 Del Method O2 Flow Rate 01/17/25 11:00 01/17/25 10:30 01/17/25 10:00 01/17/25 09:30 01/17/25 09:15 01/17/25 09:10 01/17/25 08:20 114/59 L 95 Nasal Cannula 2 01/17/25 07:45 Nasal Cannula 2 01/17/25 04:10 151/82 H 94 Nasal Cannula 2 01/17/25 00:21 152/77 H 94 Nasal Cannula 2 Laboratory Results Short CBC 01/17/25 Range/Units 05:58 WBC 16.31 H (4.8-10.8) K/ul Hgb 8.7 L (14.0-18.0) g/dL Hct 26.1 L (42.0-52.0) % Plt Count 393 (130-400) K/uL BMP 01/17/25 05:58 Sodium 133 L Potassium 4.8 Chloride 97 L Carbon Dioxide 21 BUN 92 H Creatinine 8.16 H* Glucose 97 Calcium 8.6 Medications Administered Home Medications Medication Instructions Recorded Confirmed Last Taken atenolol 50 mg tablet 50 mg PO QAM 03/07/20 01/09/25 07/19/21 insulin aspart U-100 100 unit/mL 1 sliding scale dose subcut UD 03/07/20 01/09/25 07/19/21 12:00 (3 mL) subcutaneous pen (Novolog 10 units FlexPen U-100 Insulin aspart) insulin glargine 100 unit/mL (3 30 unit subcut QAM 03/07/20 01/09/25 07/19/21 mL) subcutaneous pen (Basaglar SenaPen U-100 Insulin) cholecalciferol (vitamin D3) 25 25 mcg PO .3X WEEK 11/01/21 01/09/25 Unknown mcg (1,000 unit) tablet (Vitamin D3) acetaminophen 500 mg tablet 500 - 1,000 mg PO UD PRN Pain 10/10/24 01/09/25 Unknown torsemide 100 mg tablet 100 mg PO DAILY 10/10/24 01/09/25 Unknown aspirin 81 mg tablet,delayed 81 mg PO DAILY #30 tabs 11/08/24 01/09/25 Unknown release clopidogrel 75 mg tablet 75 mg PO HS #30 tabs 11/08/24 01/09/25 Unknown gabapentin 600 mg tablet 600 mg PO TID #30 tabs 11/08/24 01/09/25 Unknown lidocaine 5 % topical patch 1 patch transdermal QAM #15 ea 11/08/24 01/09/25 Unknown cephalexin 500 mg capsule 500 mg PO QID 7 days #28 caps 01/03/25 01/09/25 Unknown amlodipine 5 mg tablet 5 mg PO QAM 01/09/25 01/09/25 Unknown atorvastatin 80 mg tablet 80 mg PO HS 01/09/25 01/09/25 Unknown docusate sodium 100 mg capsule 100 mg PO BID PRN Constipation 01/09/25 01/09/25 Unknown oxycodone 5 mg/5 mL oral solution 2.5 mg PO Q6H PRN Pain, Severe 01/09/25 01/09/25 Unknown Active Medications Generic Name Dose Route Start Last Admin Trade Name Freq PRN Reason Stop Dose Admin Acetaminophen 650 mg 01/09/25 12:20 01/11/25 18:01 Acetaminophen 325 Mg Tab PO 02/08/25 12:19 650 mg Q4H PRN Administration Pain or Fever Acetaminophen 500 mg 01/09/25 12:20 01/17/25 05:07 Acetaminophen 500 Mg Tab PO 02/08/25 12:19 Not Given Q8H ESTHER Amlodipine Besylate 5 mg 01/10/25 09:00 01/16/25 13:01 Amlodipine Besylate 5 Mg Tab PO 02/09/25 08:59 5 mg QAM ESTHER Administration Aspirin 81 mg 01/10/25 09:00 01/16/25 13:00 Aspirin 81 Mg Ectab PO 02/09/25 08:59 81 mg DAILY ESTHER Administration Atenolol 50 mg 01/10/25 09:00 01/16/25 12:58 Atenolol 50 Mg Tablet PO 02/09/25 08:59 50 mg QAM ESTHER Administration Atorvastatin Calcium 80 mg 01/09/25 21:00 01/16/25 21:14 Atorvastatin 40 Mg Tab PO 02/08/25 20:59 80 mg HS ESTHER Administration Clopidogrel Bisulfate 75 mg 01/09/25 21:00 01/16/25 21:14 Clopidogrel Bisulfate 75 Mg Tab PO 02/08/25 20:59 75 mg HS ESTHER Administration Docusate Sodium 100 mg 01/15/25 09:00 01/17/25 08:47 Docusate Sodium 100 Mg Cap PO 02/14/25 08:59 100 mg DAILY ESTHER Administration Gabapentin 600 mg 01/09/25 14:00 01/16/25 21:13 Gabapentin 600 Mg Tab PO 02/08/25 13:59 600 mg TID ESTHER Administration Heparin Sodium (Porcine) 5,000 units 01/09/25 21:00 01/17/25 05:50 Heparin Sod 5,000 Unit/0.5 Ml Vial SQ 02/08/25 20:59 5,000 units Q8 ESTHER Administration Ertapenem 500 mg in 5 mls @ 2 mls/min 01/16/25 16:00 01/16/25 16:25 Invanz 500mg IV 02/27/25 15:59 2 mls/min Q24H ESTHER Administration Ampicillin Sodium 2,000 mg/ 100 mls @ 200 mls/hr 01/16/25 21:00 01/16/25 21:49 Sodium Chloride IV 02/27/25 20:59 Infused Q12 ESTHER Infusion Insulin Aspart 0 units 01/16/25 16:30 01/17/25 08:31 Insulin Aspart Per Unit Charge SC 02/15/25 16:29 2 units ACHS ESTHER Administration Insulin Glargine 0 - 20 units 01/10/25 09:00 01/17/25 10:30 Lantus Per Unit Charge SQ 02/09/25 08:59 Not Given DAILY ESTHER Lactobacillus Acidophilus 1,250 mg 01/10/25 09:00 01/16/25 12:58 Advanced Probiotic 625 Mg Capsule PO 02/09/25 08:59 1,250 mg DAILY ESTHER Administration Melatonin 3 mg 01/09/25 12:20 01/13/25 20:53 Melatonin 3 Mg Tab PO 02/08/25 12:19 3 mg HS PRN Administration Sleep Morphine Sulfate 3 mg 01/09/25 12:20 01/16/25 12:16 Morphine Sulfate 4 Mg/Ml 1 Ml Carp\\Vial IV 01/23/25 12:19 3 mg Q4H PRN Administration Severe Pain (Scale 7, 8, 9,10) Oxycodone HCl 5 mg 01/09/25 12:20 01/15/25 14:24 Oxycodone Hcl Soln 5 Mg/5 Ml Udc PO 01/23/25 12:19 5 mg Q6H PRN Administration Moderate Pain (Scale 4, 5, 6) Polyethylene Glycol 17 gm 01/15/25 09:00 01/17/25 08:47 Polyethylene (Miralax) 17 Gm Pack PO 02/14/25 08:59 17 gm DAILY ESTHER Administration Torsemide 100 mg 01/10/25 09:00 01/16/25 13:00 Torsemide 100 Mg Tab PO 02/09/25 08:59 100 mg DAILY ESTHER Administration Vitamin D 25 mcg 01/09/25 12:30 01/16/25 13:01 Cholecalciferol 25 Mcg (1000 Units) Tab PO 02/08/25 12:29 25 mcg MoWeFr@0900 ESTHER Administration
--- NOTE | 2025-01-17 13:41 | Nephrology Progress Note ---
Date of Service January 17, 2025 Assessment & Plan Admission and Anticipated Discharge Date Admission Date: January 09, 2025 Subjective Assessment & Plan (1) End stage renal disease on dialysis: Plan: ESRD on hemodialysis Thursday. At this time no evidence of fluid overload and no electrolyte issues in fact he has not been eating and dr inking for many days now and as a result may even be somewhat volume depleted. had HD 01/13 and earlier today --2.4 kilo UF -next HD will be tomorrow to keep him in schedule. 3 hrs 3k and take 1-1.5 kilo hemoglobin is low / in 8s consistently and will give procrit tomorrow also.-4K (2) Osteomyelitis of finger: Plan: does have elevated white count. On antibiotics. (3) Gangrene of finger: Plan: patient with extensive issues related with osteomyelitis infection as well as gangrene of finger and toes requiring extensive surgical intervention in the recent past as well as antibiotic therapy. defer to primary team. antibiotics choice will be as per primary team and infectious Disease as patient is quite complicated Subjective Dialysis today--2.4 Kilo off. No issues. ? getting PICC vs Midline. no sob but is more confused than usual. Review of Systems Review of Systems: All systems reviewed & are unremarkable except as noted in Subjective Physical Exam Constitutional: well developed no acute distress Eyes: EOM intact bilaterally ENMT: Mouth: + dry oral mucous membranes Respiratory: normal respiratory effort Auscultation: + diminished lung sounds Gastrointestinal (Abdomen): Inspection/Auscultation: normal bowel sounds Percussion/Palpation: abdomen soft; abdomen nontender Musculoskeletal: Extremities: strength 5/5 throughout Skin: no rashes, warm and dry Neurologic: nagel, fluent speech, no tremor Results & Data Vital Signs (Past 12 Hours) Vital Signs Temp Pulse Pulse Pulse Pulse Resp BP 01/17/25 13:00 68 95/48 L 01/17/25 12:30 65 106/57 L 01/17/25 12:00 79 118/58 L 01/17/25 11:30 75 117/67 01/17/25 11:00 74 122/73 01/17/25 10:30 78 102/63 01/17/25 10:00 74 118/64 01/17/25 09:30 73 120/72 01/17/25 09:15 71 104/69 01/17/25 09:10 36.9 C 71 01/17/25 08:20 36.3 C L 75 18 01/17/25 07:45 01/17/25 04:10 36.4 C L 73 16 BP BP Pulse Ox O2 Del Method O2 Flow Rate 01/17/25 13:00 01/17/25 12:30 01/17/25 12:00 01/17/25 11:30 01/17/25 11:00 01/17/25 10:30 01/17/25 10:00 01/17/25 09:30 01/17/25 09:15 01/17/25 09:10 01/17/25 08:20 114/59 L 95 Nasal Cannula 2 01/17/25 07:45 Nasal Cannula 2 01/17/25 04:10 151/82 H 94 Nasal Cannula 2
[2025-01-17] MEDS ORDERED: MEROPENEM 1,000 MG in SYRINGE 0 ML IV SCH (16:00)
[2025-01-18 06:28] LABS: Hematocrit (blood only) 26.6 % (42.0-52.0); Hemoglobin 8.4 g/dL (14.0-18.0); Mean Corpuscular Hemoglobin 30.7 pg (25.0-34.0); Mean Corpuscular Volume 97.1 fL (80.0-100.0); Platelet Count 354 K/uL (130-400); RDW Standard Deviation 55.8 fL (36.4-46.3); Red Blood Count 2.74 M/uL (4.70-6.10); White Blood Count 16.40 K/ul (4.8-10.8)
[2025-01-18 06:52] LABS: Anion Gap 11.0 (3-11); Blood Urea Nitrogen 57.0 mg/dl (6-23); Calcium 8.4 mg/dl (8.6-10.3); Carbon Dioxide 26.0 mmol/L (21-32); Chloride 98.0 mmol/L (98-107); Creatinine Clr Calc Pharmacy 16.1 ml/min; Glucose 174.0 mg/dl (70-99(Fasting)); Potassium 4.4 mmol/L (3.5-5.1); Sodium 135.0 mmol/L (136-145)
[2025-01-18] MEDS ORDERED: SODIUM CHLORIDE 0.9% 1,000 ML IV PRN (07:00)
[2025-01-18] MEDS: EPOETIN ALFA 4,000 UNIT/ML VIAL IV ONE (10:37)
--- NOTE | 2025-01-18 11:01 | Dialysis Progress Note ---
Date of Service January 18, 2025 Assessment & Plan Admission and Anticipated Discharge Date Admission Date: January 09, 2025 Subjective Assessment & Plan (1) End stage renal disease on dialysis: Plan: ESRD on hemodialysis Thursday. At this time no evidence of fluid overload and no electrolyte issues in fact he has not been eating and dri nking for many days now and as a result may even be somewhat volume depleted. had HD 01/13 and earlier today --2.4 kilo UF HD for 3 hrs 3k and take 1-1.5 kilo Hemoglobin is low / in 8s consistently and will give procrit. (2) Osteomyelitis of finger: Plan: Does have elevated white count. On antibiotics. Antibiotic: (dose and frequency) ertapenem 500 mg IV daily AND Ampicillin 2 g IV q 12h Start of therapy: 01/10/2025 End of therapy: 02/21/2025 Picc/ Midline/ US-guided peripheral IV: Care per protocol, remove at end of therapy I did discuss with primary team and said better to have Midline if possible. Subjective Seen during Dialysis today-- No issues. ? getting PICC vs Midline. no sob Review of Systems Review of Systems: All systems reviewed & are unremarkable except as noted in Subjective Physical Exam Constitutional: well developed no acute distress Eyes: EOM intact bilaterally ENMT: Mouth: + dry oral mucous membranes Respiratory: normal respiratory effort Auscultation: + diminished lung sounds Gastrointestinal (Abdomen): Inspection/Auscultation: normal bowel sounds Percussion/Palpation: abdomen soft; abdomen nontender Musculoskeletal: Extremities: strength 5/5 throughout Skin: no rashes, warm and dry Neurologic: nagel, fluent speech, no tremor Results & Data Vital Signs (Past 12 Hours) Vital Signs Temp Pulse Pulse Pulse Resp BP BP 01/18/25 09:58 72 01/18/25 09:30 73 108/60 01/18/25 09:12 74 105/60 01/18/25 09:09 36.8 C 76 76 01/18/25 08:07 01/18/25 07:45 36.8 C 76 15 121/44 L 01/18/25 03:11 36.9 C 79 20 118/91 01/17/25 23:56 Pulse Ox O2 Del Method 01/18/25 09:58 01/18/25 09:30 01/18/25 09:12 01/18/25 09:09 01/18/25 08:07 Room Air 01/18/25 07:45 98 Room Air 01/18/25 03:11 94 Room Air 01/17/25 23:56 Room Air
--- NOTE | 2025-01-18 12:33 | Hospitalist Progress Note ---
Date of Service January 18, 2025 Assessment & Plan (1) Abscess of left foot: Plan 64 yo M with history of T2DM, diabetic neuropathy, PAD s/p prior revascularizations, CAD s/p CABG x 2, complete heart block s/p pacemaker, bicuspid aortic valve s/p AVR, ESRD on HD, history of steal syndrome for AVF, CVA, PE who presented on 01/09 with worsening L foot pain x 3-4 days, found on CT to have soft tissue fluid collection adjacent to TMA site c/f abscess. #L foot osteomyelitis -S/p TMA, c/b soft tissue abscess s/p I&D -In setting of severe PAD, DM -Wound cx growing ESBL Kleb and E. faecalis Plan -Ertapenem+ ampicillin through 02/21 per ID -Midline ordered today -Continue wound care -SNF when ready, possibly by 02/19 #PAD -Vascular surgery consulted, s/p LLE angio showing 1 vessel runoff to foot -Continue DAPT, statin therapy #ESRD -Continue HD per nephrology #DM -BG remain elevated -Stop the lantus sliding scale and change it to lantus 20 daily -Continue novolog SSI -BGM ACHS #HTN -Continue current BP regimen #Anemia -Chronic, POA -No s/s acute blood loss -Secondary to chronic illness, ESRD -EPO per nephro with HD #Hyponatremia -Mild asymptomatic. monitor #CAD -Continue home cardiac regimen #History of CVA -Continue DAPT, statin therapy Admission and Anticipated Discharge Date Admission Date: January 09, 2025 Subjective Feeling well. seen in HD. consent for midline obtained. Patient denies F/C, CP, palpitations, SOB, dyspnea, abd pain, N/V/D d/w in patient's room as well. Physical Exam Physical Exam: Vitals and labs reviewed General: chronically ill appearing in NAD HEENT: EOMI, PERRLA Neck: Supple Cardiac: RRR no rubs gallops or murmurs Lungs: CTA no rhonchi wheezing or rales Abd: S NT ND BS positive : Deffered MSK: Full ROM. L foot bandaged Ext: No Edema cyanosis Skin: Warm, Dry Neuro: AOx3 No focal deficits. Psych: Normal Mood Results & Data Results & Data Vital Signs (Past 12 Hours) Vital Signs Temp Pulse Pulse Pulse Resp BP BP 01/18/25 11:00 71 103/57 L 01/18/25 10:30 72 111/58 L 01/18/25 10:00 73 106/52 L 01/18/25 09:58 72 01/18/25 09:30 73 108/60 01/18/25 09:12 74 105/60 01/18/25 09:09 36.8 C 76 76 01/18/25 08:07 01/18/25 07:45 36.8 C 76 15 121/44 L 01/18/25 03:11 36.9 C 79 20 118/91 Pulse Ox O2 Del Method 01/18/25 11:00 01/18/25 10:30 01/18/25 10:00 01/18/25 09:58 01/18/25 09:30 01/18/25 09:12 01/18/25 09:09 01/18/25 08:07 Room Air 01/18/25 07:45 98 Room Air 01/18/25 03:11 94 Room Air Laboratory Results Abnormal lab results 01/17/25 01/17/25 01/17/25 Range/Units 13:43 14:51 15:18 WBC (4.8-10.8) K/ul RBC (4.70-6.10) M/uL Hgb (14.0-18.0) g/dL Hct (42.0-52.0) % MCHC (32.0-36.0) g/dL RDW Std Deviation (36.4-46.3) fL RDW Coeff of Kesha (11.5-14.5) % Activ Coag Time Kaolin 204 H 187 H (94-140) SECONDS Sodium (136-145) mmol/L BUN (6-23) mg/dl Creatinine (0.6-1.4) mg/dl BUN/Creatinine Ratio (10-20) Glucose (70-99(Fasting)) mg/dl POC Glucose 201 H (70-99) mg/dl Calcium (8.6-10.3) mg/dl 01/17/25 01/17/25 01/18/25 Range/Units 15:49 20:09 06:08 WBC 16.40 H (4.8-10.8) K/ul RBC 2.74 L (4.70-6.10) M/uL Hgb 8.4 L (14.0-18.0) g/dL Hct 26.6 L (42.0-52.0) % MCHC 31.6 L (32.0-36.0) g/dL RDW Std Deviation 55.8 H (36.4-46.3) fL RDW Coeff of Kesha 15.6 H (11.5-14.5) % Activ Coag Time Kaolin (94-140) SECONDS Sodium 135 L (136-145) mmol/L BUN 57 H D (6-23) mg/dl Creatinine 5.78 H* D (0.6-1.4) mg/dl BUN/Creatinine Ratio 9.9 L (10-20) Glucose 174 H (70-99(Fasting)) mg/dl POC Glucose 233 H 240 H (70-99) mg/dl Calcium 8.4 L (8.6-10.3) mg/dl 01/18/ Range/Units 07:43 WBC (4.8-10.8) K/ul RBC (4.70-6.10) M/uL Hgb (14.0-18.0) g/dL Hct (42.0-52.0) % MCHC (32.0-36.0) g/dL RDW Std Deviation (36.4-46.3) fL RDW Coeff of Kesha (11.5-14.5) % Activ Coag Time Kaolin (94-140) SECONDS Sodium (136-145) mmol/L BUN (6-23) mg/dl Creatinine (0.6-1.4) mg/dl BUN/Creatinine Ratio (10-20) Glucose (70-99(Fasting)) mg/dl POC Glucose 198 H (70-99) mg/dl Calcium (8.6-10.3) mg/dl
[2025-01-18] MEDS ORDERED: VANCOMYCIN CONSULT ACTIVE PRN (14:59)
--- NOTE | 2025-01-18 15:59 | Podiatry Progress Note ---
Date of Service January 18, 2025 Assessment & Plan (1) Status post transmetatarsal amputation of left foot: (2) Cellulitis of foot, left: (3) Foot pain, left: (4) Surgical wound, non healing: (5) Abscess of left foot: (6) PVD (peripheral vascular disease): (7) Diabetic peripheral neuropathy: (8) Diabetes mellitus with neuropathy: (9) Status post incision and drainage: Plan -All notes, labs, and imaging reviewed -Cultures: Klebsiella P. and Enterococcus Faecalis -CT: 1. Interval postoperative changes. 2. Nonspecific soft tissue fluid collection adjacent to the transmetatarsal amputation site. Differential diagnosis includes postoperative seroma, hematoma, and developing abscess. -Dressing: Xeroform and DSD. QoD changes. -Vascular surgery consulted. Did discuss with Vascular team and plans for an angiogram on Thursday. Appreciate recommendations. -Infectious disease consulted. Antibiotics per Infectious disease. Appreciate recommendations. -S/P left foot incision and drainage and bone biopsy 01/10/25. - S/P Repeat debridement and DPC left foot 01/12/25 -Recommend SNF placement for continued care. - Patient underwent angiogram with vascular team. 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 Did have one vessel runoff. Appreciate recommendations. Did discuss with patient that he is high risk for a more proximal amputation because of vascular status. Will attempt to allow for TMA to heal. If flap becomes non- viable patient will need a more proximal amputation. No further surgical intervention from podiatry perspective at this time. Continue with conservative management for now. Patient is okay to be discharged from podiatry perspective once medically cleared by all other specialities. Will continue to follow patient while inpatient. Patient to follow up with me at [facility], [address] [facility], once discharged from the hospital. Admission and Anticipated Discharge Date Admission Date: January 09, 2025 Subjective Patient is a 64 year old male that is s/p left foot incision and drainage and bone biopsy 01/10/25 and Delayed primary closure 01/12/25. Patient was resting comfortably in bed this morning. Dressing intact this morning. Patient is waiting discharge to snf Review of Systems Review of Systems: All systems reviewed & are unremarkable except as noted in HPI & below Physical Exam Cardiovascular: DP and PT pulses are non-palpable. Skin: Surgical TMA incision noted to the left foot. Sutures are intact to medial and central surgical site. Minor pain to palpation, edema and drainage noted today. Necrosis of flap noted laterally. Closed post-op site noted to the lateral foot with small opening to continue allowing for drainage. Neurologic: Protective sensation and light touch sensation diminished today. Results & Data Results & Data Vital Signs (Past 12 Hours) Vital Signs Temp Pulse Pulse Pulse Resp BP BP 01/18/25 14:43 36.3 C L 84 20 132/65 01/18/25 14:19 79 01/18/25 14:01 01/18/25 12:25 36.6 C 74 01/18/25 12:00 71 101/62 01/18/25 11:30 71 111/63 01/18/25 11:00 01/18/25 11:00 71 103/57 L 01/18/25 10:30 72 111/58 L 01/18/25 10:00 73 106/52 L 01/18/25 09:58 72 01/18/25 09:30 73 108/60 01/18/25 09:12 74 105/60 01/18/25 09:09 36.8 C 76 76 01/18/25 08:07 01/18/25 07:45 36.8 C 76 15 BP Pulse Ox Pulse Ox O2 Del Method O2 Del Method 01/18/25 14:43 94 Room Air 01/18/25 14:19 01/18/25 14:01 Room Air 01/18/25 12:25 129/70 01/18/25 12:00 01/18/25 11:30 01/18/25 11:00 98 Room Air 01/18/25 11:00 01/18/25 10:30 01/18/25 10:00 01/18/25 09:58 01/18/25 09:30 01/18/25 09:12 01/18/25 09:09 01/18/25 08:07 Room Air 01/18/25 07:45 121/44 L 98 Room Air
[2025-01-18] MEDS: VANCOMYCIN HCL / NSS 1,000 MG/270 ML BAG IV ONE (16:04)
--- NOTE | 2025-01-18 16:32 | Communication Note ---
Date of Service: January 18, 2025 Multiple discussions with nephrology and ID this afternoon. Unable to place midline. ID recommends ertapenem three times per week with HD and also amox 1 gram PO BID. Will have to coordinate with OP HD
[2025-01-18] MEDS: AMPICILLIN 2,000 MG in SODIUM CHLOR 0.9% MINI-B 100 ML IV SCH (20:52)
[2025-01-18] MEDS ORDERED: AMPICILLIN SOD 1 GM VIAL IV SCH (21:00)
[2025-01-19] MEDS: LANTUS PER UNIT CHARGE SQ SCH (08:21)
--- NOTE | 2025-01-19 09:10 | Podiatry Progress Note ---
Date of Service January 19, 2025 Assessment & Plan (1) Status post transmetatarsal amputation of left foot: (2) Cellulitis of foot, left: (3) Foot pain, left: (4) Surgical wound, non healing: (5) Abscess of left foot: (6) PVD (peripheral vascular disease): (7) Diabetic peripheral neuropathy: (8) Diabetes mellitus with neuropathy: (9) Status post incision and drainage: Plan -All notes, labs, and imaging reviewed -Cultures: Klebsiella P. and Enterococcus Faecalis -CT: 1. Interval postoperative changes. 2. Nonspecific soft tissue fluid collection adjacent to the transmetatarsal amputation site. Differential diagnosis includes postoperative seroma, hematoma, and developing abscess. -Dressing: Xeroform and DSD. QoD changes. -Vascular surgery consulted. Did discuss with Vascular team and plans for an angiogram on Thursday. Appreciate recommendations. -Infectious disease consulted. Antibiotics per Infectious disease. Appreciate recommendations. -S/P left foot incision and drainage and bone biopsy 01/10/25. - S/P Repeat debridement and DPC left foot 01/12/25 -Recommend SNF placement for continued care. - Patient underwent angiogram with vascular team. Findings show PAINTER SKI EDGE and DERIC and peroneal arteries in the calf with poor runoff to the foot, and arteries are heavily calcified. Did have one vessel runoff. Appreciate recommendations. Did discuss with patient that he is high risk for a more proximal amputation because of vascular status. Will attempt to allow for TMA to heal. If flap becomes non- viable patient will need a more proximal amputation. No further surgical intervention from podiatry perspective at this time. Continue with conservative management for now. Patient is okay to be discharged from podiatry perspective once medically cleared by all other specialities. Patient to follow up with me at [facility], [address] [facility], once discharged from the hospital. Admission and Anticipated Discharge Date Admission Date: January 09, 2025 Subjective Patient is a 64 year old male that is s/p left foot incision and drainage and bone biopsy 01/10/25 and Delayed primary closure 01/12/25. Patient was resting comfortably in bed this morning. Dressing intact this morning. Patient is waiting discharge to snf . No new pedal complaints Review of Systems Review of Systems: All systems reviewed & are unremarkable except as noted in HPI & below Physical Exam Cardiovascular: DP and PT pulses are non-palpable. Skin: Surgical TMA incision noted to the left foot. Sutures are intact to medial and central surgical site. Minor pain to palpation, edema and drainage noted today. Necrosis of flap noted laterally. Closed post-op site noted to the lateral foot with small opening to continue allowing for drainage. Neurologic: Protective sensation and light touch sensation diminished today. Results & Data Results & Data Vital Signs (Past 12 Hours) Vital Signs Temp Pulse Pulse Pulse Resp BP BP 01/19/25 08:28 36.2 C L 76 21 125/75 01/19/25 07:24 01/19/25 07:02 73 01/19/25 04:07 36.7 C 74 16 125/70 01/18/25 23:12 36.5 C 73 16 138/86 Pulse Ox O2 Del Method 01/19/25 08:28 97 Room Air 01/19/25 07:24 Room Air 01/19/25 07:02 01/19/25 04:07 95 Room Air 01/18/25 23:12 97 Room Air
--- NOTE | 2025-01-19 09:41 | Hospitalist Progress Note ---
Date of Service January 19, 2025 Assessment & Plan (1) Abscess of left foot: Plan 64 yo M with history of T2DM, diabetic neuropathy, PAD s/p prior revascularizations, CAD s/p CABG x 2, complete heart block s/p pacemaker, bicuspid aortic valve s/p AVR, ESRD on HD, history of steal syndrome for AVF, CVA, PE who presented on 01/09 with worsening L foot pain x 3-4 days, found on CT to have soft tissue fluid collection adjacent to TMA site c/f abscess. #L foot osteomyelitis -S/p TMA, c/b soft tissue abscess s/p I&D -In setting of severe PAD, DM -Wound cx growing ESBL Kleb and E. faecalis -Unable to place Midline 01/18 Plan -Per ID: Ertapenem with HD three times per week, amoxicillin 1 gram BID through 02/21 -While hospitalized, continue ampicillin and ertapenem per ID -Ertapenem with HD will have to be confirmed with CM and OP HD clinic prior to discharge -Continue wound care -SNF when abx plan is finalized #PAD -Vascular surgery consulted, s/p LLE angio showing 1 vessel runoff to foot -Continue DAPT, statin therapy #ESRD -Continue HD per nephrology #DM -BG remain elevated -Increase lantus to 22 units daily -Continue novolog SSI -BGM ACHS #HTN -Continue current BP regimen #Anemia -Chronic, POA -No s/s acute blood loss -Secondary to chronic illness, ESRD -EPO per nephro with HD #Hyponatremia -Mild asymptomatic. monitor #CAD -Continue home cardiac regimen #History of CVA -Continue DAPT, statin therapy I spent a total of 58 minutes coordinating, documenting, and providing care for this patient excluding time spent in the performance of separately billed services. This included personally reviewing all current laboratories and imaging studies, medical reconciliation, outpatient chart review and discussion with specialists Admission and Anticipated Discharge Date Admission Date: January 09, 2025 Subjective seen in room. feeling well today without any complaints other than chronic leg pain Physical Exam Physical Exam: Vitals and labs reviewed General: chronically ill appearing in NAD HEENT: EOMI, PERRLA Neck: Supple Cardiac: RRR no rubs gallops or murmurs Lungs: CTA no rhonchi wheezing or rales Abd: S NT ND BS positive : Deffered MSK: Full ROM. L foot bandaged Ext: No Edema cyanosis Skin: Warm, Dry Neuro: AOx3 No focal deficits. Psych: Normal Mood Results & Data Results & Data Vital Signs (Past 12 Hours) Vital Signs Temp Pulse Pulse Pulse Resp BP BP 01/19/25 08:28 36.2 C L 76 21 125/75 01/19/25 07:24 01/19/25 07:02 73 01/19/25 04:07 36.7 C 74 16 125/70 01/18/25 23:12 36.5 C 73 16 138/86 Pulse Ox O2 Del Method 01/19/25 08:28 97 Room Air 01/19/25 07:24 Room Air 01/19/25 07:02 01/19/25 04:07 95 Room Air 01/18/25 23:12 97 Room Air
--- NOTE | 2025-01-19 11:50 | Nephrology Progress Note ---
Date of Service January 19, 2025 Assessment & Plan (1) End stage renal disease on dialysis: Plan: ESRD on hemodialysis Thursday. At this time no evidence of fluid overload and no electrolyte issues in fact he has not been eating and drinking for many days now and as a result may even be somewhat volume depleted. had HD 01/18 for 3 L UF -next HD in am hemoglobin is low. Will dose TRELL aggressively (2) Osteomyelitis of finger: Plan: Status post debridement and wound dressing. On antibiotics. (3) Gangrene of finger: Plan: patient with extensive issues related with osteomyelitis infection as well as gangrene of finger and toes requiring extensive surgical intervention in the recent past as well as antibiotic therapy. defer to primary team. antibiotics choice will be as per primary team and possibly Infectious Disease as patient is quite complicated Admission and Anticipated Discharge Date Admission Date: January 09, 2025 Subjective Seen for ESRD. He had dialysis yesterday. No shortness of breath. Complains of left foot pain. Review of Systems 2 Review of Systems: All other systems were reviewed and negative except as noted in HPI Physical Exam 2 Physical Exam: General exam: Appears comfortable, no acute distress HEENT: Pupils are equal and reactive to light Neck: No JVD, neck is supple trachea is midline Respiratory system: Clear breath sounds bilaterally. Gastrointestinal: Abdomen is soft, non distended, non tender, bowel sounds are present CVS: Regular rate and rhythm. No murmurs, rubs or gallops Musculoskeletal: No joint or muscle tenderness Extremities: Non tender, no edema, peripheral pulses are present Neuro: Oriented, no tremors, no focal neurological deficits Skin: No rashes Results & Data Vital Signs (Past 12 Hours) Vital Signs Temp Pulse Pulse Resp BP BP Pulse Ox 01/19/25 08:28 36.2 C L 76 21 125/75 97 01/19/25 07:24 01/19/25 07:02 73 01/19/25 04:07 36.7 C 74 16 125/70 95 O2 Del Method 01/19/25 08:28 Room Air 01/19/25 07:24 Room Air 01/19/25 07:02 01/19/25 04:07 Room Air Laboratory Results 01/18/25 06:08
[2025-01-20] MEDS ORDERED: SODIUM CHLORIDE 0.9% 1,000 ML IV PRN (07:00)
[2025-01-20] MEDS: LANTUS PER UNIT CHARGE SQ SCH (09:20)
[2025-01-20] MEDS: POLYETHYLENE (MIRALAX) 17 GM PACK PO SCH (09:20)
--- NOTE | 2025-01-20 10:29 | Hospitalist Progress Note ---
Date of Service January 20, 2025 Assessment & Plan (1) Abscess of left foot: Plan 64 yo M with history of T2DM, diabetic neuropathy, PAD s/p prior revascularizations, CAD s/p CABG x 2, complete heart block s/p pacemaker, bicuspid aortic valve s/p AVR, ESRD on HD, history of steal syndrome for AVF, CVA, PE who presented on 01/09 with worsening L foot pain x 3-4 days, found on CT to have soft tissue fluid collection adjacent to TMA site c/f abscess. #L foot osteomyelitis -S/p TMA, c/b soft tissue abscess s/p I&D -In setting of severe PAD, DM -Wound cx growing ESBL Kleb and E. faecalis -Unable to place Midline 01/18 Plan -Per ID: Ertapenem with HD three times per week, amoxicillin 1 gram BID through 02/21 -While hospitalized, continue ampicillin and ertapenem per ID -Ertapenem with HD will have to be confirmed with CM and OP HD clinic prior to discharge -Anticipate DC to SNF on thursday -Continue wound care #Constipation -A few small bowel movements but no significant movement in the past 3 days -No Pain, N/V. BS active. low suspicion for ileus or SBO -Give enema 01/20 -Miralax BID #PAD -Vascular surgery consulted, s/p LLE angio showing 1 vessel runoff to foot -Continue DAPT, statin therapy #ESRD -Continue HD per nephrology #DM -BG remain elevated -Increase lantus to 25 units daily -Continue novolog SSI -BGM ACHS #HTN -Continue current BP regimen #Anemia -Chronic, POA -No s/s acute blood loss -Secondary to chronic illness, ESRD -EPO per nephro with HD #Hyponatremia -Mild asymptomatic. monitor #CAD -Continue home cardiac regimen #History of CVA -Continue DAPT, statin therapy I spent a total of 52 minutes coordinating, documenting, and providing care for this patient excluding time spent in the performance of separately billed services. This included personally reviewing all current laboratories and imaging studies, medical reconciliation, outpatient chart review and discussion with specialists Admission and Anticipated Discharge Date Admission Date: January 09, 2025 Subjective Feeling well today. Patient denies F/C, CP, palpitations, SOB, dyspnea, abd pain, N/V/D. eating without issue Dw CM Physical Exam Physical Exam: Vitals and labs reviewed General: chronically ill appearing in NAD HEENT: EOMI, PERRLA Neck: Supple Cardiac: RRR no rubs gallops or murmurs Lungs: CTA no rhonchi wheezing or rales Abd: S NT ND BS positive : Deffered MSK: Full ROM. L foot bandaged Ext: No Edema cyanosis Skin: Warm, Dry Neuro: AOx3 No focal deficits. Psych: Normal Mood Results & Data Results & Data Vital Signs (Past 12 Hours) Vital Signs Temp Pulse Pulse Pulse Resp BP BP 01/20/25 07:30 70 01/20/25 07:30 70 15 146/49 H 01/20/25 03:56 36.6 C 73 18 142/58 H 01/19/25 22:49 36.5 C 77 20 152/81 H Pulse Ox O2 Del Method 01/20/25 07:30 01/20/25 07:30 94 Room Air 01/20/25 03:56 95 Room Air 01/19/25 22:49 95 Room Air Laboratory Results Abnormal lab results 01/19/25 01/19/25 01/19/25 Range/Units 11:26 16:14 20:31 POC Glucose 204 H 197 H 233 H (70-99) mg/dl 01/20/25 Range/Units 07:33 POC Glucose 197 H (70-99) mg/dl
[2025-01-20] MEDS: SOD PHOSPHATE/SOD BIPHOSPHATE ENEMA 132 ML BTL PR STA (10:47)
--- NOTE | 2025-01-20 13:31 | Communication Note ---
Date of Service: January 20, 2025 Notified by RN that she stuck herself while administering sq medication. D/w patient and protocol including testing for viral hepatitis and HIV. both agreed. consent form signed. labs in.
--- NOTE | 2025-01-20 15:11 | Nephrology Progress Note ---
Date of Service January 20, 2025 Assessment & Plan (1) End stage renal disease on dialysis: Plan: ESRD on hemodialysis Thursday. At this time no evidence of fluid overload and no electrolyte issues in fact he has not been eating and drinking for many days now and as a result may even be somewhat volume depleted. had HD 01/18 for 3 L UF - patient will be dialyzed today for 3-1/2 hours target UF 3 L hemoglobin is low. Will dose TRELL aggressively (2) Osteomyelitis of finger: Plan: Status post debridement and wound dressing. On antibiotics. (3) Gangrene of finger: Plan: patient with extensive issues related with osteomyelitis infection as well as gangrene of finger and toes requiring extensive surgical intervention in the recent past as well as antibiotic therapy. defer to primary team. antibiotics choice will be as per primary team and possibly Infectious Disease as patient is quite complicated Admission and Anticipated Discharge Date Admission Date: January 09, 2025 Subjective seen for ESRD. No shortness of breath. Patient is for dialysis today Review of Systems 2 Review of Systems: All other systems were reviewed and negative except as noted in HPI Physical Exam 2 Physical Exam: General exam: Appears comfortable, no acute distress HEENT: Pupils are equal and reactive to light Neck: No JVD, neck is supple trachea is midline Respiratory system: Clear breath sounds bilaterally. Gastrointestinal: Abdomen is soft, non distended, non tender, bowel sounds are present CVS: Regular rate and rhythm. No murmurs, rubs or gallops Musculoskeletal: No joint or muscle tenderness Extremities: Non tender, no edema, peripheral pulses are present Neuro: Oriented, no tremors, no focal neurological deficits Skin: No rashes Results & Data Vital Signs (Past 12 Hours) Vital Signs Temp Pulse Pulse Pulse Resp BP BP 01/20/25 11:48 36.3 C L 70 20 111/63 01/20/25 07:30 70 01/20/25 07:30 70 15 146/49 H 01/20/25 03:56 36.6 C 73 18 142/58 H Pulse Ox O2 Del Method 01/20/25 11:48 96 Room Air 01/20/25 07:30 01/20/25 07:30 94 Room Air 01/20/25 03:56 95 Room Air Laboratory Results 01/18/25 06:08
[2025-01-20 15:24] LABS: Hep B Surface Ag with confirm Negative (Negative)
[2025-01-20] MEDS: EPOETIN ALFA 10,000 UNITS/ML VIAL IV ONE (15:31)
[2025-01-20] MEDS: HEPARIN SOD (PORCINE) 1000 UNIT/ML IV ONE (15:31)
[2025-01-20] MEDS: HEPARIN SOD (PORCINE) 1000 UNIT/ML IV SCH (15:31)
[2025-01-20 15:36] LABS: Hep C Ab Rflx HepCQuant RNA Negative (Negative)
--- NOTE | 2025-01-20 20:05 | Communication Note ---
Date of Service: January 20, 2025 Patient noted to be confused and shivering upon return to floor from dialysis. Stable vitals, BSG 160s as per RN. Patient denies headache, chest pain, SOB, abdominal pain, diarrhea complaints. Patient later complained of dizziness. WBC 25 from 16 AP Encephalopathy ? Dialysis disequilibrium Home gabapentin possibly contributory (current dose of 600 mg p.o. TID excessive for ESRD patient) Rule out UTI given progressive leukocytosis Decrease gabapentin dose to 100 mg p.o. 3 times daily (max daily dose of 300 mg/daily in ESRD patient as per formulary) Check UA CT head if mentation unimproved in a.m. to rule out cerebral edema from possible dialysis disequilibrium.
[2025-01-20 20:51] LABS: Hematocrit (blood only) 27.5 % (42.0-52.0); Hemoglobin 9.2 g/dL (14.0-18.0); Mean Corpuscular Hemoglobin 31.2 pg (25.0-34.0); Mean Corpuscular Volume 93.2 fL (80.0-100.0); Platelet Count 429 K/uL (130-400); RDW Standard Deviation 51.6 fL (36.4-46.3); Red Blood Count 2.95 M/uL (4.70-6.10); White Blood Count 25.88 K/ul (4.8-10.8)
[2025-01-20 21:16] LABS: Anion Gap 12.0 (3-11); Blood Urea Nitrogen 32.0 mg/dl (6-23); Calcium 8.5 mg/dl (8.6-10.3); Carbon Dioxide 27.0 mmol/L (21-32); Chloride 95.0 mmol/L (98-107); Creatinine Clr Calc Pharmacy 24.9 ml/min; Glucose 167.0 mg/dl (70-99(Fasting)); Potassium 3.3 mmol/L (3.5-5.1); Sodium 134.0 mmol/L (136-145)
[2025-01-20] MEDS: ALBUMIN 25% 12.5 GM/50 ML VIAL IV ONE (22:19)
[2025-01-20 22:44] LABS: Immature Granulocytes # (auto) 0.50 K/uL (0.01-0.20); Immature Granulocytes % (auto) 1.9 %; Polychromasia 1+
[2025-01-21 06:34] LABS: Hematocrit (blood only) 26.1 % (42.0-52.0); Hemoglobin 8.7 g/dL (14.0-18.0); Mean Corpuscular Hemoglobin 31.6 pg (25.0-34.0); Mean Corpuscular Volume 94.9 fL (80.0-100.0); Platelet Count 379 K/uL (130-400); RDW Standard Deviation 53.1 fL (36.4-46.3); Red Blood Count 2.75 M/uL (4.70-6.10); White Blood Count 19.21 K/ul (4.8-10.8)
[2025-01-21 07:19] LABS: Anion Gap 13.0 (3-11); Blood Urea Nitrogen 37.0 mg/dl (6-23); Calcium 8.4 mg/dl (8.6-10.3); Carbon Dioxide 26.0 mmol/L (21-32); Chloride 96.0 mmol/L (98-107); Creatinine Clr Calc Pharmacy 20.4 ml/min; Glucose 132.0 mg/dl (70-99(Fasting)); Potassium 3.7 mmol/L (3.5-5.1); Sodium 135.0 mmol/L (136-145)
[2025-01-21] MEDS: LANTUS PER UNIT CHARGE SQ SCH (08:36)
[2025-01-21] MEDS ORDERED: GABAPENTIN 100 MG CAP PO SCH (09:00)
[2025-01-21 09:01] LABS: Thyroid Stimulating Hormone 2.109 uIu/ml (0.300-4.500)
--- NOTE | 2025-01-21 09:30 | CT Scan Report ---
Clinical History: Altered mental status Technique: Axial computed tomography images were obtained of the brain without intravenous contrast. Comparison is made to the MRI dated 10/25/2024 Findings: There is unchanged cerebral atrophy, within expected limits for the patient's age. Areas of decreased attenuation are seen within the periventricular white matter, likely representing chronic small vessel ischemic disease. There are unchanged old infarcts of the left frontal lobe and the right cerebellar hemisphere There is no definite sign of acute infarction. No intracranial hemorrhage is evident. No definite mass lesion is seen on this noncontrast examination. There is no midline shift or other form of herniation. No hydrocephalus is seen. No fracture is identified. The orbits and the visualized paranasal sinuses appear unremarkable. The mastoid air cells appear clear. Impression: 1. Cerebral atrophy, old infarcts, and chronic small vessel ischemic disease 2. Otherwise unremarkable noncontrast CT of the brain Electronically signed by Mak Park 01-21-2025 09:29 AM
--- NOTE | 2025-01-21 09:49 | Hospitalist Progress Note ---
Date of Service January 21, 2025 Assessment & Plan (1) Abscess of left foot: Plan 64 yo M with history of T2DM, diabetic neuropathy, PAD s/p prior revascularizations, CAD s/p CABG x 2, complete heart block s/p pacemaker, bicuspid aortic valve s/p AVR, ESRD on HD, history of steal syndrome for AVF, CVA, PE who presented on 01/09 with worsening L foot pain x 3-4 days, found on CT to have soft tissue fluid collection adjacent to TMA site c/f abscess. #L foot osteomyelitis -S/p TMA, c/b soft tissue abscess s/p I&D -In setting of severe PAD, DM -Wound cx growing ESBL Kleb and E. faecalis -Unable to place Midline 01/18 Plan -Per ID: Ertapenem with HD three times per week, amoxicillin 1 gram BID through 02/21 -While hospitalized, continue ampicillin and ertapenem per ID -Ertapenem with HD will have to be confirmed with CM and OP HD clinic prior to discharge -Anticipate DC to SNF on thursday -Continue wound care #AMS -Multifactorial due to hospital acquired delirium+ metabolic encephalopathy due to infection, ESRD -CTH 01/21 no acute pathology, but did show cerebral atrophy, old infarcts and chronic small vessel disease -CTH images personally reviewed -B12, TSH, NH3 normal Plan -Treat underlying infection -Delirium precautions -Avoid Beer's list medications -Agree with holding gabapentin -Limit opioids, DC IV morphine #Leukocytosis -In setting of osteomyelitis -WBC down today -Afebrile -Blood cultures from 01/20 pending but already on broad spectrum abx -Monitor temp, WBC, f/u on blood cx #Constipation -Moderate liquid bowel movement on 01/20 -Continue bowel regimen #PAD -Vascular surgery consulted, s/p LLE angio showing 1 vessel runoff to foot -Continue DAPT, statin therapy #ESRD -Continue HD per nephrology #DM -BG remain elevated -Continue lantus 25 units daily -Continue novolog SSI -BGM ACHS #HTN -Continue current BP regimen #Anemia -Chronic, POA -No s/s acute blood loss -Secondary to chronic illness, ESRD -EPO per nephro with HD #Hyponatremia -Mild asymptomatic. monitor #CAD -Continue home cardiac regimen #History of CVA -Continue DAPT, statin therapy I spent a total of 60 minutes coordinating, documenting, and providing care for this patient excluding time spent in the performance of separately billed services. This included personally reviewing all current laboratories and imaging studies, medical reconciliation, outpatient chart review and discussion with specialists Admission and Anticipated Discharge Date Admission Date: January 09, 2025 Subjective He is feeling well this AM. seen in room. Patient denies VALENCIA vision changes, F/C, CP, palpitations, SOB, dyspnea, abd pain, N/V/D. Physical Exam Physical Exam: Vitals and labs reviewed General: chronically ill appearing in NAD HEENT: EOMI, PERRLA Neck: Supple Cardiac: RRR no rubs gallops or murmurs Lungs: CTA no rhonchi wheezing or rales Abd: S NT ND BS positive : Deffered MSK: Full ROM. L foot bandaged Ext: No Edema cyanosis Skin: Warm, Dry Neuro: AO to person place but not time. no asterixis. no tremors. no focal deficits on exam Psych: Normal Mood Results & Data Results & Data Vital Signs (Past 12 Hours) Vital Signs Temp Pulse Pulse Pulse Resp BP BP 01/21/25 08:45 36.5 C 72 18 104/64 01/21/25 02:15 78 18 112/86 01/20/25 23:12 37 C 72 15 136/59 L 01/20/25 22:53 72 Pulse Ox O2 Del Method 01/21/25 08:45 94 Room Air 01/21/25 02:15 96 Room Air 01/20/25 23:12 97 Room Air 01/20/25 22:53 Laboratory Results Abnormal lab results 01/20/25 01/20/25 01/20/25 Range/Units 11:33 18:16 19:38 WBC (4.8-10.8) K/ul RBC (4.70-6.10) M/uL Hgb (14.0-18.0) g/dL Hct (42.0-52.0) % RDW Std Deviation (36.4-46.3) fL RDW Coeff of Kesha (11.5-14.5) % Plt Count (130-400) K/uL Neut # (Auto) (1.40-6.50) K/uL Acad[place] # (Auto) (0.11-0.59) K/uL Immature Gran # (Auto) (0.01-0.20) K/uL Sodium (136-145) mmol/L Potassium (3.5-5.1) mmol/L Chloride (98-107) mmol/L Anion Gap (3-11) BUN (6-23) mg/dl Creatinine (0.6-1.4) mg/dl BUN/Creatinine Ratio (10-20) Glucose (70-99(Fasting)) mg/dl POC Glucose 236 H 147 H 163 H (70-99) mg/dl Calcium (8.6-10.3) mg/dl 01/20/25 01/20/25 01/21/25 Range/Units 20:20 21:55 05:26 WBC 25.88 H 19.21 H (4.8-10.8) K/ul RBC 2.95 L 2.75 L (4.70-6.10) M/uL Hgb 9.2 L 8.7 L (14.0-18.0) g/dL Hct 27.5 L 26.1 L (42.0-52.0) % RDW Std Deviation 51.6 H 53.1 H (36.4-46.3) fL RDW Coeff of Kesha 15.1 H 15.4 H (11.5-14.5) % Plt Count 429 H (130-400) K/uL Neut # (Auto) 22.65 H (1.40-6.50) K/uL Acadia # (Auto) 1.33 H (0.11-0.59) K/uL Immature Gran # (Auto) 0.50 H (0.01-0.20) K/uL Sodium 134 L 135 L (136-145) mmol/L Potassium 3.3 L (3.5-5.1) mmol/L Chloride 95 L 96 L (98-107) mmol/L Anion Gap 12 H 13 H (3-11) BUN 32 H 37 H (6-23) mg/dl Creatinine 3.43 H 4.18 H D (0.6-1.4) mg/dl BUN/Creatinine Ratio 9.3 L 8.9 L (10-20) Glucose 167 H 132 H (70-99(Fasting)) mg/dl POC Glucose 191 H (70-99) mg/dl Calcium 8.5 L 8.4 L (8.6-10.3) mg/dl 01/21/25 Range/Units 07:25 WBC (4.8-10.8) K/ul RBC (4.70-6.10) M/uL Hgb (14.0-18.0) g/dL Hct (42.0-52.0) % RDW Std Deviation (36.4-46.3) fL RDW Coeff of Kesha (11.5-14.5) % Plt Count (130-400) K/uL Neut # (Auto) (1.40-6.50) K/uL [place] # (Auto) (0.11-0.59) K/uL Immature Gran # (Auto) (0.01-0.20) K/uL Sodium (136-145) mmol/L Potassium (3.5-5.1) mmol/L Chloride (98-107) mmol/L Anion Gap (3-11) BUN (6-23) mg/dl Creatinine (0.6-1.4) mg/dl BUN/Creatinine Ratio (10-20) Glucose (70-99(Fasting)) mg/dl POC Glucose 169 H (70-99) mg/dl Calcium (8.6-10.3) mg/dl
--- NOTE | 2025-01-21 10:28 | Nephrology Progress Note ---
Date of Service January 21, 2025 Assessment & Plan (1) End stage renal disease on dialysis: Plan: ESRD on hemodialysis Thursday. At this time no evidence of fluid overload and no electrolyte issues in fact he has not been eating and drinking for many days now and as a result may even be somewhat volume depleted. had HD 01/18 for 3 L UF - patient tolerated HD well yesterday for 3-1/2 hours target UF 3 L hemoglobin is low. Will dose TRELL aggressively -Next HD will be Thursday (2) Osteomyelitis of finger: Plan: Status post debridement and wound dressing. On antibiotics. (3) Gangrene of finger: Plan: patient with extensive issues related with osteomyelitis infection as well as gangrene of finger and toes requiring extensive surgical intervention in the recent past as well as antibiotic therapy. Continue antibiotics renally dosed. Admission and Anticipated Discharge Date Admission Date: January 09, 2025 Subjective Seen for ESRD. he feels better. has left foot pain. No SOB Review of Systems 2 Review of Systems: All other systems were reviewed and negative except as noted in HPI Physical Exam 2 Physical Exam: General exam: Appears comfortable, no acute distress HEENT: Pupils are equal and reactive to light Neck: No JVD, neck is supple trachea is midline Respiratory system: Clear breath sounds bilaterally. Gastrointestinal: Abdomen is soft, non distended, non tender, bowel sounds are present CVS: Regular rate and rhythm. No murmurs, rubs or gallops Musculoskeletal: No joint or muscle tenderness Extremities: Non tender, no edema, peripheral pulses are present Neuro: Oriented, no tremors, no focal neurological deficits Skin: No rashes Results & Data Vital Signs (Past 12 Hours) Vital Signs Temp Pulse Pulse Pulse Resp BP BP 01/21/25 08:45 36.5 C 72 18 104/64 01/21/25 02:15 78 18 112/86 01/20/25 23:12 37 C 72 15 136/59 L 01/20/25 22:53 72 Pulse Ox O2 Del Method 01/21/25 08:45 94 Room Air 01/21/25 02:15 96 Room Air 01/20/25 23:12 97 Room Air 01/20/25 22:53 Laboratory Results 01/21/25 05:26 01/20/25 01/21/25 20:20 05: WBC 25.88 H 19.21 H RBC 2.95 L 2.75 L MCV 93.2 94.9 MCH 31.2 31.6 MCHC 33.5 33.3 RDW Std Deviation 51.6 H 53.1 H RDW Coeff of Kesha 15.1 H 15.4 H Plt Count 429 H 379 MPV 10.2 10.3
[2025-01-21 18:57] LABS: Chlamydia pneumoniae PCR Not Detected (NotDetected); Coronavirus 229E PCR Not Detected (NotDetected); Coronavirus CoV-2 (COVID19)PCR Not Detected (NotDetected); Coronavirus HKU1 PCR Not Detected (NotDetected); Coronavirus NL63 PCR Not Detected (NotDetected); Coronavirus OC43PCR Not Detected (NotDetected); Human Metapneumovirus PCR Not Detected (NotDetected); Parainfluenza Virus 1 PCR Not Detected (NotDetected); Parainfluenza Virus 2 PCR Not Detected (NotDetected); Parainfluenza Virus 3 PCR Not Detected (NotDetected); Parainfluenza Virus 4 PCR Not Detected (NotDetected); Respiratory Syncytial VirusPCR Not Detected (NotDetected); Rhinovirus/Enterovirus PCR Not Detected (NotDetected)
[2025-01-22 08:07] LABS: Hematocrit (blood only) 27.7 % (42.0-52.0); Hemoglobin 9.0 g/dL (14.0-18.0); Mean Corpuscular Hemoglobin 30.9 pg (25.0-34.0); Mean Corpuscular Volume 95.2 fL (80.0-100.0); Platelet Count 401 K/uL (130-400); RDW Standard Deviation 53.7 fL (36.4-46.3); Red Blood Count 2.91 M/uL (4.70-6.10); White Blood Count 15.59 K/ul (4.8-10.8)
[2025-01-22 08:28] LABS: Anion Gap 14.0 (3-11); Blood Urea Nitrogen 58.0 mg/dl (6-23); Calcium 8.5 mg/dl (8.6-10.3); Carbon Dioxide 25.0 mmol/L (21-32); Chloride 95.0 mmol/L (98-107); Creatinine Clr Calc Pharmacy 15.7 ml/min; Glucose 149.0 mg/dl (70-99(Fasting)); Potassium 3.4 mmol/L (3.5-5.1); Sodium 134.0 mmol/L (136-145)
--- NOTE | 2025-01-22 09:34 | Hospitalist Progress Note ---
Date of Service January 22, 2025 Assessment & Plan (1) Abscess of left foot: Plan 64 yo M with history of T2DM, diabetic neuropathy, PAD s/p prior revascularizations, CAD s/p CABG x 2, complete heart block s/p pacemaker, bicuspid aortic valve s/p AVR, ESRD on HD, history of steal syndrome for AVF, CVA, PE who presented on 01/09 with worsening L foot pain x 3-4 days, found on CT to have soft tissue fluid collection adjacent to TMA site c/f abscess. #L foot osteomyelitis -S/p TMA, c/b soft tissue abscess s/p I&D -In setting of severe PAD, DM -Wound cx growing ESBL Kleb and E. faecalis -Unable to place Midline 01/18 Plan -Per ID: Ertapenem with HD three times per week, amoxicillin 1 gram BID through 02/21 -While hospitalized, continue ampicillin and ertapenem per ID -Ertapenem with HD will have to be confirmed with CM and OP HD clinic prior to discharge -Anticipate DC to SNF on thursday -Continue wound care #AMS -Multifactorial due to hospital acquired delirium+ metabolic encephalopathy due to infection, ESRD, gabapentin -CTH 01/21 no acute pathology, but did show cerebral atrophy, old infarcts and chronic small vessel disease -CTH images personally reviewed -B12, TSH, NH3 normal -Aox 4 today Plan -Treat underlying infection -Delirium precautions -Avoid Beer's list medications -Agree with holding gabapentin -Limit opioids, DC IV morphine #Leukocytosis -In setting of osteomyelitis -WBC downtrending -Afebrile -Blood cultures from 01/20 NGTD but already on broad spectrum abx -Monitor temp, WBC, f/u on blood cx #Constipation -Moderate liquid bowel movement on 01/20 -Continue bowel regimen #PAD -Vascular surgery consulted, s/p LLE angio showing 1 vessel runoff to foot -Continue DAPT, statin therapy #ESRD #Hypokalemia- replace and follow -Continue HD per nephrology #DM -BG better controlled -Continue lantus 25 units daily -Continue novolog SSI -BGM ACHS #HTN -Continue current BP regimen #Anemia -Chronic, POA -No s/s acute blood loss -Secondary to chronic illness, ESRD -EPO per nephro with HD #Hyponatremia -Mild asymptomatic. monitor #CAD -Continue home cardiac regimen #History of CVA -Continue DAPT, statin therapy I spent a total of 60 minutes coordinating, documenting, and providing care for this patient excluding time spent in the performance of separately billed services. This included personally reviewing all current laboratories and imaging studies, medical reconciliation, outpatient chart review and discussion with specialists Admission and Anticipated Discharge Date Admission Date: January 09, 2025 Subjective Feeling well today. answering all questions appropriately. denies any complaints today. Patient denies F/C, CP, palpitations, SOB, dyspnea, abd pain, N/V/D D/w on patient's phone answered all questions Physical Exam Physical Exam: Vitals and labs reviewed General: chronically ill appearing in NAD HEENT: EOMI, PERRLA Neck: Supple Cardiac: RRR no rubs gallops or murmurs Lungs: CTA no rhonchi wheezing or rales Abd: S NT ND BS positive : Deffered MSK: Full ROM. L foot bandaged Ext: No Edema cyanosis Skin: Warm, Dry Neuro: AOx 4 . no focal deficits. no tremors or asterixis Psych: Normal Mood Results & Data Results & Data Vital Signs (Past 12 Hours) Vital Signs Temp Pulse Pulse Resp BP Pulse Ox O2 Del Method 01/22/25 05:44 36.6 C 64 18 128/56 L 98 Room Air 01/21/25 23:43 36.8 C 69 18 158/57 H 92 Room Air 01/21/25 23:00 67 Laboratory Results Abnormal lab results 01/21/25 01/21/25 01/21/25 Range/Units 11:31 16:14 20:50 WBC (4.8-10.8) K/ul RBC (4.70-6.10) M/uL Hgb (14.0-18.0) g/dL Hct (42.0-52.0) % RDW Std Deviation (36.4-46.3) fL RDW Coeff of Kesha (11.5-14.5) % Plt Count (130-400) K/uL Sodium (136-145) mmol/L Potassium (3.5-5.1) mmol/L Chloride (98-107) mmol/L Anion Gap (3-11) BUN (6-23) mg/dl Creatinine (0.6-1.4) mg/dl Glucose (70-99(Fasting)) mg/dl POC Glucose 210 H 255 H 177 H (70-99) mg/dl Calcium (8.6-10.3) mg/dl 01/22/25 01/22/25 Range/Units 07:19 07:25 WBC 15.59 H (4.8-10.8) K/ul RBC 2.91 L (4.70-6.10) M/uL Hgb 9.0 L (14.0-18.0) g/dL Hct 27.7 L (42.0-52.0) % RDW Std Deviation 53.7 H (36.4-46.3) fL RDW Coeff of Kesha 15.4 H (11.5-14.5) % Plt Count 401 H (130-400) K/uL Sodium 134 L (136-145) mmol/L Potassium 3.4 L (3.5-5.1) mmol/L Chloride 95 L (98-107) mmol/L Anion Gap 14 H (3-11) BUN 58 H D (6-23) mg/dl Creatinine 5.45 H* D (0.6-1.4) mg/dl Glucose 149 H (70-99(Fasting)) mg/dl POC Glucose 175 H (70-99) mg/dl Calcium 8.5 L (8.6-10.3) mg/dl
[2025-01-22] MEDS: POTASSIUM CHLORIDE CRTAB 20 MEQ TABCR PO STA (09:48)
--- NOTE | 2025-01-22 10:21 | Nephrology Progress Note ---
Date of Service January 22, 2025 Assessment & Plan (1) End stage renal disease on dialysis: Plan: ESRD on hemodialysis Thursday. At this time no evidence of fluid overload and no electrolyte issues in fact he has not been eating and drinking for many days now and as a result may even be somewhat volume depleted. had HD 01/18 for 3 L UF - patient tolerated HD well Thursday for 3-1/2 hours target UF 3 L hemoglobin is low. Will dose TRELL aggressively -Next HD will be Thursday (2) Osteomyelitis of finger: Plan: Status post debridement and wound dressing. On antibiotics. (3) Status post transmetatarsal amputation of left foot: Plan: S/P TMA of left foot complicated by infected wound. Continue antibiotics renally dosed. podiatry and ID on board Admission and Anticipated Discharge Date Admission Date: January 09, 2025 Subjective Seen for ESRD. s/p TMA left foot for OM. no SOB. No leg swelling Review of Systems 2 Review of Systems: All other systems were reviewed and negative except as noted in HPI Physical Exam 2 Physical Exam: General exam: Appears comfortable, no acute distress HEENT: Pupils are equal and reactive to light Neck: No JVD, neck is supple trachea is midline Respiratory system: Clear breath sounds bilaterally. Gastrointestinal: Abdomen is soft, non distended, non tender, bowel sounds are present CVS: Regular rate and rhythm. No murmurs, rubs or gallops Musculoskeletal: No joint or muscle tenderness Extremities: Non tender, no edema, peripheral pulses are present Neuro: Oriented, no tremors, no focal neurological deficits Skin: No rashes Results & Data Vital Signs (Past 12 Hours) Vital Signs Temp Pulse Pulse Resp BP Pulse Ox O2 Del Method 01/22/25 05:44 36.6 C 64 18 128/56 L 98 Room Air 01/21/25 23:43 36.8 C 69 18 158/57 H 92 Room Air 01/21/25 23:00 67 Laboratory Results 01/22/25 07:19 01/22/25 07:19 WBC 15.59 H RBC 2.91 L MCV 95.2 MCH 30.9 MCHC 32.5 RDW Std Deviation 53.7 H RDW Coeff of Kesha 15.4 H Plt Count 401 H MPV 10.6
[2025-01-23 06:48] LABS: Hematocrit (blood only) 25.6 % (42.0-52.0); Hemoglobin 8.3 g/dL (14.0-18.0); Mean Corpuscular Hemoglobin 30.5 pg (25.0-34.0); Mean Corpuscular Volume 94.1 fL (80.0-100.0); Platelet Count 401 K/uL (130-400); RDW Standard Deviation 53.2 fL (36.4-46.3); Red Blood Count 2.72 M/uL (4.70-6.10); White Blood Count 14.95 K/ul (4.8-10.8)
[2025-01-23] MEDS ORDERED: SODIUM CHLORIDE 0.9% 1,000 ML IV PRN (07:00)
[2025-01-23 07:39] LABS: Anion Gap 15.0 (3-11); Calcium 8.2 mg/dl (8.6-10.3); Carbon Dioxide 24.0 mmol/L (21-32); Chloride 95.0 mmol/L (98-107); Potassium 3.5 mmol/L (3.5-5.1); Sodium 134.0 mmol/L (136-145)
[2025-01-23 07:47] LABS: Blood Urea Nitrogen 73.0 mg/dl (6-23); Creatinine Clr Calc Pharmacy 14.9 ml/min; Glucose 124.0 mg/dl (70-99(Fasting))
[2025-01-23] MEDS: HEPARIN SOD (PORCINE) 1000 UNIT/ML IV SCH (11:40)
[2025-01-23] MEDS: HEPARIN SOD (PORCINE) 1000 UNIT/ML IV ONE (11:40)
--- NOTE | 2025-01-23 11:43 | Hospitalist Progress Note ---
Date of Service January 23, 2025 Assessment & Plan (1) Abscess of left foot: Plan 64 yo M with history of T2DM, diabetic neuropathy, PAD s/p prior revascularizations, CAD s/p CABG x 2, complete heart block s/p pacemaker, bicuspid aortic valve s/p AVR, ESRD on HD, history of steal syndrome for AVF, CVA, PE who presented on 01/09 with worsening L foot pain x 3-4 days, found on CT to have soft tissue fluid collection adjacent to TMA site c/f abscess. #L foot osteomyelitis -S/p TMA, c/b soft tissue abscess s/p I&D -In setting of severe PAD, DM -Wound cx growing ESBL Kleb and E. faecalis -Unable to place Midline 01/18 Plan -Per ID: Ertapenem with HD three times per week, amoxicillin 1 gram BID through 02/21 -While hospitalized, continue ampicillin and ertapenem per ID -Ertapenem with HD will have to be confirmed with CM and OP HD clinic prior to discharge -Anticipate DC to SNF on thursday -Continue wound care #AMS -Multifactorial due to hospital acquired delirium+ metabolic encephalopathy due to infection, ESRD, gabapentin -CTH 01/21 no acute pathology, but did show cerebral atrophy, old infarcts and chronic small vessel disease -CTH images personally reviewed -B12, TSH, NH3 normal -Aox 4 today Plan -Treat underlying infection -Delirium precautions -Avoid Beer's list medications -Agree with holding gabapentin -Limit opioids, DC IV morphine #Leukocytosis -In setting of osteomyelitis -WBC downtrending -Afebrile -Blood cultures from 01/20 NGTD but already on broad spectrum abx -Monitor temp, WBC, f/u on blood cx #Constipation -Moderate liquid bowel movement on 01/20 -Continue bowel regimen #PAD -Vascular surgery consulted, s/p LLE angio showing 1 vessel runoff to foot -Continue DAPT, statin therapy #ESRD #Hypokalemia- replace and follow -Continue HD per nephrology #DM -BG better controlled -Continue lantus 25 units daily -Continue novolog SSI -BGM ACHS #HTN -Continue current BP regimen #Anemia -Chronic, POA -No s/s acute blood loss -Secondary to chronic illness, ESRD -EPO per nephro with HD #Hyponatremia -Mild asymptomatic. monitor #CAD -Continue home cardiac regimen #History of CVA -Continue DAPT, statin therapy I spent a total of 46 minutes coordinating, documenting, and providing care for this patient excluding time spent in the performance of separately billed services. This included personally reviewing all current laboratories and imaging studies, medical reconciliation, outpatient chart review and discussion with specialists Admission and Anticipated Discharge Date Admission Date: January 09, 2025 Subjective feeling well today. Patient denies F/C, CP, palpitations, SOB, dyspnea, abd pain, N/V/D Physical Exam Physical Exam: Vitals and labs reviewed General: chronically ill appearing in NAD HEENT: EOMI, PERRLA Neck: Supple Cardiac: RRR no rubs gallops or murmurs Lungs: CTA no rhonchi wheezing or rales Abd: S NT ND BS positive : Deffered MSK: Full ROM. L foot bandaged Ext: No Edema cyanosis Skin: Warm, Dry Neuro: AOx 4 . no focal deficits. no tremors or asterixis Psych: Normal Mood Results & Data Results & Data Vital Signs (Past 12 Hours) Vital Signs Temp Pulse Pulse Pulse Resp BP BP 01/23/25 11:00 68 124/76 01/23/25 10:30 65 113/71 01/23/25 10:00 70 130/67 01/23/25 09:42 72 154/87 H 01/23/25 09:35 36.4 C L 70 01/23/25 08:00 72 01/23/25 07:33 36.7 C 72 20 176/96 H 01/23/25 02:46 36.7 C 68 18 BP Pulse Ox O2 Del Method 01/23/25 11:00 01/23/25 10:30 01/23/25 10:00 01/23/25 09:42 01/23/25 09:35 01/23/25 08:00 01/23/25 07:33 92 Room Air 01/23/25 02:46 135/76 91 Room Air Laboratory Results Abnormal lab results 01/22/25 01/22/25 01/23/25 Range/Units 16:16 20:55 06:29 WBC 14.95 H (4.8-10.8) K/ul RBC 2.72 L (4.70-6.10) M/uL Hgb 8.3 L (14.0-18.0) g/dL Hct 25.6 L (42.0-52.0) % RDW Std Deviation 53.2 H (36.4-46.3) fL RDW Coeff of Kesha 15.4 H (11.5-14.5) % Plt Count 401 H (130-400) K/uL Sodium 134 L (136-145) mmol/L Chloride 95 L (98-107) mmol/L Anion Gap 15 H (3-11) BUN 73 H (6-23) mg/dl Creatinine 6.24 H* D (0.6-1.4) mg/dl Glucose 124 H (70-99(Fasting)) mg/dl POC Glucose 187 H 181 H (70-99) mg/dl Calcium 8.2 L (8.6-10.3) mg/dl 01/23/25 Range/Units 07:29 WBC (4.8-10.8) K/ul RBC (4.70-6.10) M/uL Hgb (14.0-18.0) g/dL Hct (42.0-52.0) % RDW Std Deviation (36.4-46.3) fL RDW Coeff of Kesha (11.5-14.5) % Plt Count (130-400) K/uL Sodium (136-145) mmol/L Chloride (98-107) mmol/L Anion Gap (3-11) BUN (6-23) mg/dl Creatinine (0.6-1.4) mg/dl Glucose (70-99(Fasting)) mg/dl POC Glucose 136 H (70-99) mg/dl Calcium (8.6-10.3) mg/dl
[2025-01-23] MEDS: EPOETIN ALFA 10,000 UNITS/ML VIAL IV ONE (12:06)
--- NOTE | 2025-01-23 15:06 | Nephrology Progress Note ---
Date of Service January 23, 2025 Assessment & Plan (1) End stage renal disease on dialysis: Plan: ESRD on hemodialysis Thursday. At this time no evidence of fluid overload and no electrolyte issues. had HD 01/18 for 3 L UF - patient tolerated HD well Saturday 01/20 for 3-1/2 hours with 2L fluid removed hemoglobin is low. Will dose TRELL aggressively > 10K units per /tx; hgb stuck in mid 8s consistently >> some epo resistance likely on fdc abtx, w/ wounds -tolerated HD well today, 2.5LUF w/ acceptable UFR he will go to [facility] for rehab and dialyze while there as OP at [facility] >> [facility] dialysis aware and orders are in; then return to [facility] ultimately Care coordianted w/ Dr Calles re AMS, IV access, urine studies; abtx plan; we are in agreement. (2) Confusion and disorientation: Plan: >check UA/urine culture (will have to straight cath) so ordered; did void 500 mL this am; if negative, low threshold to eval wound cultures; blood cxs negative on 01/20 as was ammonia level. the UF rate at HD today was 7.5 ml/kg/hr which is pretty benign >he had a head CT 01/21 > ? if he could have MRI (may have ortho/vascular hardware) but will evaluate >?consider C diff eval w/ 5 BM charted today > though no abd pain here (3) Osteomyelitis of finger: Plan: Status post debridement and wound dressing. On ertapenem 500 mg daily through 02/21 and ampicillin IV but amp to change to amoxicillin bid 1 gm at d/c>> ertapenem MUST BE DOSED AFTER DIAYLSIS on dialysis days once pt leaves hospital; already being dosed that way here; >>>actually b/c he could not get midline, plan had been to do ertapenem 1 gm after dialysis MWF; will find out if he can leave here w/ 8 CM u/s guided peripheral or not and review w/ dialysis OP team (4) Status post transmetatarsal amputation of left foot: Plan: S/P TMA of left foot complicated by infected wound. Continue antibiotics renally dosed. podiatry and ID on board Admission and Anticipated Discharge Date Admission Date: January 09, 2025 Subjective pt extremely confused; fluent speech but nonsensical; no f/c; RN reports confusion worse post HD; having frequent loose BM Review of Systems 2 Review of Systems: Unobtainable due to cognitive status Physical Exam 2 Constitutional: well developed and + thin; no acute distress Eyes: EOM intact bilaterally ENMT: Mouth: + dry oral mucous membranes Respiratory: normal respiratory effort Auscultation: + diminished lung sounds Cardiovascular: Rate/Rhythm: regular rate and regular rhythm Extremities: n o edema Gastrointestinal (Abdomen): Inspection/Auscultation: normal bowel sounds P ercussion/Palpation: abdomen soft; abdomen nontender Musculoskeletal: Extremities: strength 5/5 throughout Skin: no rashes, warm and dry (multiple amputations R hand; BL feet) Results & Data Vital Signs (Past 12 Hours) Vital Signs Temp Pulse Pulse Pulse Resp BP BP 01/23/25 13:51 36.7 C 79 19 01/23/25 11:00 68 124/76 01/23/25 10:30 65 113/71 01/23/25 10:00 70 130/67 01/23/25 09:42 72 154/87 H 01/23/25 09:35 36.4 C L 70 01/23/25 08:00 01/23/25 08:00 72 01/23/25 07:33 36.7 C 72 20 176/96 H BP Pulse Ox O2 Del Method 01/23/25 13:51 143/63 H 94 Room Air 01/23/25 11:00 01/23/25 10:30 01/23/25 10:00 01/23/25 09:42 01/23/25 09:35 01/23/25 08:00 Room Air 01/23/25 08:00 01/23/25 07:33 92 Room Air Laboratory Results 01/23/25 06:29 01/23/25 06:29
[2025-01-24 04:26] LABS: Appearance Urine Turbid (Clear); Bacteria Urine Automated 2+ (None Seen); Cast Urine Automated >20 /lpf (0-2); Epithelial Cell Urine Auto 0-2 /hpf (0-2); Glucose Urine UA Negative (Negative); RBC Urine Automated 0-2 /hpf (0-2); WBC Urine Automated >50 /hpf (0-5)
[2025-01-24 06:17] LABS: Hematocrit (blood only) 26.3 % (42.0-52.0); Hemoglobin 8.8 g/dL (14.0-18.0); Mean Corpuscular Hemoglobin 31.7 pg (25.0-34.0); Mean Corpuscular Volume 94.6 fL (80.0-100.0); Platelet Count 407 K/uL (130-400); RDW Standard Deviation 52.9 fL (36.4-46.3); Red Blood Count 2.78 M/uL (4.70-6.10); White Blood Count 15.14 K/ul (4.8-10.8)
[2025-01-24 06:52] LABS: Anion Gap 12.0 (3-11); Blood Urea Nitrogen 47.0 mg/dl (6-23); Calcium 8.3 mg/dl (8.6-10.3); Carbon Dioxide 26.0 mmol/L (21-32); Chloride 97.0 mmol/L (98-107); Creatinine Clr Calc Pharmacy 18.7 ml/min; Glucose 123.0 mg/dl (70-99(Fasting)); Potassium 3.4 mmol/L (3.5-5.1); Sodium 135.0 mmol/L (136-145)
[2025-01-24] MEDS: POTASSIUM CHLORIDE CRTAB 20 MEQ TABCR PO STA (09:00)
--- NOTE | 2025-01-24 09:55 | Nephrology Progress Note ---
Date of Service January 24, 2025 Assessment & Plan (1) End stage renal disease on dialysis: Plan: ESRD on hemodialysis Thursday. At this time no evidence of fluid overload and no electrolyte issues. had HD 01/18 for 3 L UF - patient tolerated HD well Saturday 01/20 for 3-1/2 hours with 2L fluid removed -tolerated HD well 01/23, 3LUF w/ acceptable UFR of 7.4 ml/kg//hr hemoglobin is low. Will dose TRELL aggressively > 10K units per /tx; hgb stuck in mid 8s consistently >> some epo resistance likely on charging plug placer abtx, w/ wounds plan had been [facility] for [facility]hab and dialyze while there as OP at [facility] >> [facility] dialysis aware and orders are in; then return to [facility] ultimately; however pt refusing [facility] today; (2) Confusion and disorientation: Plan: likeliest is delirium given waxing/waning though challenging to assess and significant pain. >f/u pending urine culture; if negative, low threshold to eval wound cultures; blood cxs negative on 01/20 as was ammonia level. the UF rate at HD today was 7.5 ml/kg/hr which is pretty benign >he had a head CT 01/21 > for MRI today head (3) Osteomyelitis of finger: Plan: Status post debridement and wound dressing. On ertapenem 500 mg daily through 02/21 and ampicillin IV but amp to change to amoxicillin bid 1 gm at d/c>> ertapenem MUST BE DOSED AFTER DIAYLSIS on dialysis days - already being dosed that way here; after d/c b/c he could not get midline, will do >>ertapenem 1 gm after dialysis MWF; no supplemental dose on F; not able to leave w/ current (4) Status post transmetatarsal amputation of left foot: Plan: S/P TMA of left foot complicated by infected wound. Continue antibiotics renally dosed. podiatry and ID on board Admission and Anticipated Discharge Date Admission Date: January 09, 2025 Subjective had 40 mEq po K this am; 3 BM yesterday/on bowel regimen to move; RN reports pt was A&0 x 4 this am but abrupt change about 10 am and now some confusion; c/o severe L foot pain Review of Systems 2 Review of Systems: All systems reviewed & are unremarkable except as noted in Subjective (limited somewhat by cog status) Physical Exam 2 Constitutional: well developed, + acute distress (mild w/ pain) and + thin Eyes: EOM intact bilaterally ENMT: Mouth: + dry oral mucous membranes Respiratory: normal respiratory effort Auscultation: + diminished lung sounds Cardiovascular: Rate/Rhythm: regular rate and regular rhythm Extremities: n o edema Gastrointestinal (Abdomen): Inspection/Auscultation: normal bowel sounds P ercussion/Palpation: abdomen soft; abdomen nontender Musculoskeletal: Extremities: strength 5/5 throughout Skin: no rashes, warm and dry (multiple amputations R hand; BL feet) Results & Data Vital Signs (Past 12 Hours) Vital Signs Temp Pulse Pulse Pulse Resp BP BP 01/24/25 09:32 01/24/25 07:59 36.6 C 84 20 105/44 L 01/24/25 07:23 70 01/24/25 02:35 36.7 C 83 18 116/60 01/24/25 01:15 01/23/25 22:54 36.7 C 78 18 103/49 L Pulse Ox O2 Del Method 01/24/25 09:32 Room Air 01/24/25 07:59 100 Room Air 01/24/25 07:23 01/24/25 02:35 96 Room Air 01/24/25 01:15 Room Air 01/23/25 22:54 93 Room Air Laboratory Results 01/24/25 06:02 01/24/25 06:02 UA w/ 2+ bacter, 3+ LE/ > 50 WBC; cx pending
--- NOTE | 2025-01-24 09:57 | Hospitalist Progress Note ---
Date of Service January 24, 2025 Assessment & Plan (1) Abscess of left foot: Plan 64 yo M with history of T2DM, diabetic neuropathy, PAD s/p prior revascularizations, CAD s/p CABG x 2, complete heart block s/p pacemaker, bicuspid aortic valve s/p AVR, ESRD on HD, history of steal syndrome for AVF, CVA, PE who presented on 01/09 with worsening L foot pain x 3-4 days, found on CT to have soft tissue fluid collection adjacent to TMA site c/f abscess. #L foot osteomyelitis -S/p TMA, c/b soft tissue abscess s/p I&D -In setting of severe PAD, DM -Wound cx growing ESBL Kleb and E. faecalis -Unable to place Midline 01/18 Plan -Per ID: Ertapenem with HD three times per week, amoxicillin 1 gram BID through 02/21 -While hospitalized, continue ampicillin and ertapenem per ID -Ertapenem with HD will have to be confirmed with CM and OP HD clinic prior to discharge -Anticipate DC to SNF when AMS workup is complete -Continue wound care #AMS -Multifactorial due to hospital acquired delirium+ metabolic encephalopathy due to infection, ESRD, gabapentin -CTH 01/21 no acute pathology, but did show cerebral atrophy, old infarcts and chronic small vessel disease -CTH images personally reviewed -B12, TSH, NH3 normal -Alert, oriented to person place situation but not time today -No tremors or asterixis -Waxing and waning presentation suggestive of delirium -UA 01/23 abnormal but this isn't entirely surprising. -It is doubtful he developed a UTI while on ampicillin and ertapenem unless it is MRSA -If there is a new stroke on MRI, management unlikely to change as he is already on DAPT and high intensity statin Plan -For sake of completion, check MRI brain to r/o new stroke and EEG to r/o subclinical status -Follow urine culture. Should it grow a pathogen that is not typically a colonizer, would reach out to ID again to discuss -Delirium precautions -Avoid Beer's list medications -Hold home gabapentin -Limit opioids #Leukocytosis -In setting of osteomyelitis -WBC downtrending and now stable around 14-15 -Afebrile -Blood cultures from 01/20 NGTD but already on broad spectrum abx -Monitor temp, WBC, f/u on blood cx and urine cx from 01/23 #Constipation -Moderate liquid bowel movement on 01/23 -Continue bowel regimen #PAD -Vascular surgery consulted, s/p LLE angio showing 1 vessel runoff to foot -Continue DAPT, statin therapy #ESRD #Hypokalemia- replace and follow -Continue HD per nephrology #DM -BG better controlled -Continue lantus 25 units daily -Continue novolog SSI -BGM ACHS #HTN -Continue current BP regimen #Anemia -Chronic, POA -No s/s acute blood loss -Secondary to chronic illness, ESRD -EPO per nephro with HD #Hyponatremia -Mild asymptomatic. monitor #CAD -Continue home cardiac regimen #History of CVA -Continue DAPT, statin therapy I spent a total of 62 minutes coordinating, documenting, and providing care for this patient excluding time spent in the performance of separately billed services. This included personally reviewing all current laboratories and imaging studies, medical reconciliation, outpatient chart review and discussion with specialists Admission and Anticipated Discharge Date Admission Date: January 09, 2025 Subjective He has no complaints today. He is slightly confused. Patient denies VALENCIA vision changes, F/C, CP, palpitations, SOB, dyspnea, abd pain, N/V/D. d/w at length on phone Physical Exam Physical Exam: Vitals and labs reviewed General: chronically ill appearing in NAD HEENT: EOMI, PERRLA Neck: Supple Cardiac: RRR no rubs gallops or murmurs Lungs: CTA no rhonchi wheezing or rales Abd: S NT ND BS positive : Deffered MSK: Full ROM. L foot bandaged Ext: No Edema cyanosis Skin: Warm, Dry Neuro: Alert. Oriented to person place but not time. Oriented to situation . no focal deficits. no tremors or asterixis Psych: Normal Mood Results & Data Results & Data Vital Signs (Past 12 Hours) Vital Signs Temp Pulse Pulse Pulse Resp BP BP 01/24/25 07:59 36.6 C 84 20 105/44 L 01/24/25 07:23 70 01/24/25 02:35 36.7 C 83 18 116/60 01/24/25 01:15 01/23/25 22:54 36.7 C 78 18 103/49 L Pulse Ox O2 Del Method 01/24/25 07:59 100 Room Air 01/24/25 07:23 01/24/25 02:35 96 Room Air 01/24/25 01:15 Room Air 01/23/25 22:54 93 Room Air Laboratory Results Abnormal lab results 01/23/25 01/23/25 01/23/25 Range/Units 13:44 16:34 20:09 WBC (4.8-10.8) K/ul RBC (4.70-6.10) M/uL Hgb (14.0-18.0) g/dL Hct (42.0-52.0) % RDW Std Deviation (36.4-46.3) fL RDW Coeff of Kesha (11.5-14.5) % Plt Count (130-400) K/uL Sodium (136-145) mmol/L Potassium (3.5-5.1) mmol/L Chloride (98-107) mmol/L Anion Gap (3-11) BUN (6-23) mg/dl Creatinine (0.6-1.4) mg/dl Glucose (70-99(Fasting)) mg/dl POC Glucose 118 H 178 H 171 H (70-99) mg/dl Calcium (8.6-10.3) mg/dl Urine Appearance (Clear) Urine Protein (Negative) Urine Ketones (Negative) Urine Blood (Negative) Ur Leukocyte Esterase (Negative) Urine WBC (Auto) (0-5) /hpf U Hyaline Cast (Auto) (0-2) /lpf Urine Bacteria (Auto) (None Seen) 01/24/25 01/24/25 01/24/25 Range/Units 04:05 06:02 07:23 WBC 15.14 H (4.8-10.8) K/ul RBC 2.78 L (4.70-6.10) M/uL Hgb 8.8 L (14.0-18.0) g/dL Hct 26.3 L (42.0-52.0) % RDW Std Deviation 52.9 H (36.4-46.3) fL RDW Coeff of Kesha 15.3 H (11.5-14.5) % Plt Count 407 H (130-400) K/uL Sodium 135 L (136-145) mmol/L Potassium 3.4 L (3.5-5.1) mmol/L Chloride 97 L (98-107) mmol/L Anion Gap 12 H (3-11) BUN 47 H D (6-23) mg/dl Creatinine 4.57 H* D (0.6-1.4) mg/dl Glucose 123 H (70-99(Fasting)) mg/dl POC Glucose 153 H (70-99) mg/dl Calcium 8.3 L (8.6-10.3) mg/dl Urine Appearance Turbid A (Clear) Urine Protein 2+ H (Negative) Urine Ketones Trace H (Negative) Urine Blood 1+ H (Negative) Ur Leukocyte Esterase 3+ H (Negative) Urine WBC (Auto) >50 H (0-5) /hpf U Hyaline Cast (Auto) >20 H (0-2) /lpf Urine Bacteria (Auto) 2+ H (None Seen)
--- NOTE | 2025-01-24 11:05 | Communication Note ---
Date of Service: January 24, 2025 Notified by MRI team that due to patient's pacemaker, he is unable to get MRI brain at this time. Once again, he is already on DAPT and high intensity statin so even if there is a new stroke (low clinical suspcion as this would not explain his waxing-waning presentation), management would not change.
--- NOTE | 2025-01-24 16:29 | Electroencephalogram ---
EEG Procedure Note Date of Service January 24, 2025 Start / End Times Start Time: 1:21 PM End Time: 1:41 PM Referring Physician Stevan History Altered mental status, evaluate for seizures Home Medication List Medication Instructions Recorded Confirmed Type atenolol 50 mg tablet 50 mg PO QAM 03/07/20 01/09/25 History insulin aspart U-100 100 unit/mL 1 sliding scale dose subcut UD 03/07/20 01/09/25 History (3 mL) subcutaneous pen (Novolog FlexPen U-100 Insulin aspart) insulin glargine 100 unit/mL (3 30 unit subcut QAM 03/07/20 01/09/25 History mL) subcutaneous pen (Basaglar KwikPen U-100 Insulin) cholecalciferol (vitamin D3) 25 25 mcg PO .3X WEEK 11/01/21 01/09/25 History mcg (1,000 unit) tablet (Vitamin D3) acetaminophen 500 mg tablet 500 - 1,000 mg PO UD PRN Pain 10/10/24 01/09/25 History torsemide 100 mg tablet 100 mg PO DAILY 10/10/24 01/09/25 History aspirin 81 mg tablet,delayed 81 mg PO DAILY #30 tabs 11/08/24 01/09/25 Rx release clopidogrel 75 mg tablet 75 mg PO HS #30 tabs 11/08/24 01/09/25 Rx gabapentin 600 mg tablet 600 mg PO TID #30 tabs 11/08/24 01/09/25 Rx lidocaine 5 % topical patch 1 patch transdermal QAM #15 ea 11/08/24 01/09/25 Rx cephalexin 500 mg capsule 500 mg PO QID 7 days #28 caps 01/03/25 01/09/25 Rx amlodipine 5 mg tablet 5 mg PO QAM 01/09/25 01/09/25 History atorvastatin 80 mg tablet 80 mg PO HS 01/09/25 01/09/25 History docusate sodium 100 mg capsule 100 mg PO BID PRN Constipation 01/09/25 01/09/25 History oxycodone 5 mg/5 mL oral solution 2.5 mg PO Q6H PRN Pain, Severe 01/09/25 01/09/25 History Inpatient Medication List Acetaminophen (Acetaminophen 325 Mg Tab) 650 mg PO Q4H PRN PRN Reason: Pain or Fever Stop: 02/08/25 12:19 Last Admin: 01/24/25 10:18 Dose: 650 mg Documented By: Admin: 01/23/25 09:58 Dose: 650 mg Documented By: Admin: 01/20/25 09:19 Dose: 650 mg Documented By: Admin: 01/11/25 18:01 Dose: 650 mg Documented By: Admin: 01/09/25 13:45 Dose: 650 mg Documented By: TLM Acetaminophen (Acetaminophen 500 Mg Tab) 500 mg PO Q8H ESTHER Stop: 02/08/25 12:19 Last Admin: 01/24/25 13:51 Dose: 500 mg Documented By: Admin: 01/24/25 12:32 Dose: Not Given Documented By: Admin: 01/24/25 04:25 Dose: 500 mg Documented By: Admin: 01/23/25 21:12 Dose: 500 mg Documented By: Admin: 01/23/25 13:27 Dose: Not Given Documented By: Admin: 01/23/25 05:30 Dose: 500 mg Documented By: rmt Admin: 01/22/25 21:28 Dose: 500 mg Documented By: rmt Admin: 01/22/25 13:34 Dose: 500 mg Documented By: Admin: 01/22/25 05:14 Dose: 500 mg Documented By: rmt Admin: 01/21/25 21:08 Dose: 500 mg Documented By: rmt Admin: 01/21/25 13:15 Dose: 500 mg Documented By: Admin: 01/21/25 05:13 Dose: Not Given Documented By: Admin: 01/20/25 19:56 Dose: 500 mg Documented By: Admin: 01/20/25 13:47 Dose: Not Given Documented By: Admin: 01/20/25 05:17 Dose: 500 mg Documented By: Admin: 01/19/25 20:56 Dose: 500 mg Documented By: Admin: 01/19/25 13:27 Dose: 500 mg Documented By: Admin: 01/19/25 04:52 Dose: 500 mg Documented By: Admin: 01/18/25 19:35 Dose: 500 mg Documented By: Admin: 01/18/25 13:38 Dose: 500 mg Documented By: Admin: 01/18/25 03:44 Dose: 500 mg Documented By: Admin: 01/17/25 21:43 Dose: 500 mg Documented By: Admin: 01/17/25 13:51 Dose: 500 mg Documented By: Admin: 01/17/25 05:07 Dose: Not Given Documented By: Admin: 01/16/25 21:13 Dose: 500 mg Documented By: Admin: 01/16/25 13:49 Dose: 500 mg Documented By: Admin: 01/16/25 05:16 Dose: 500 mg Documented By: Admin: 01/15/25 20:57 Dose: 500 mg Documented By: Admin: 01/15/25 12:50 Dose: 500 mg Documented By: Admin: 01/15/25 05:01 Dose: 500 mg Documented By: Admin: 01/14/25 21:01 Dose: 500 mg Documented By: Admin: 01/14/25 12:38 Dose: 500 mg Documented By: Admin: 01/14/25 05:26 Dose: 500 mg Documented By: [id number] Admin: 01/13/25 20:53 Dose: 500 mg Documented By: [id number] Admin: 01/13/25 13:00 Dose: 500 mg Documented By: Admin: 01/13/25 05:05 Dose: 500 mg Documented By: mcl Admin: 01/12/25 21:08 Dose: 500 mg Documented By: mcl Admin: 01/12/25 16:40 Dose: Not Given Documented By: Admin: 01/12/25 05:19 Dose: 500 mg Documented By: Admin: 01/11/25 21:07 Dose: 500 mg Documented By: Admin: 01/11/25 14:15 Dose: Not Given Documented By: Admin: 01/11/25 05:22 Dose: 500 mg Documented By: Admin: 01/10/25 21:47 Dose: 500 mg Documented By: Admin: 01/10/25 12:22 Dose: 500 mg Documented By: Admin: 01/10/25 04:27 Dose: 500 mg Documented By: Admin: 01/09/25 21:44 Dose: 500 mg Documented By: Admin: 01/09/25 16:20 Dose: 500 mg Documented By: TLM Amlodipine Besylate (Amlodipine Besylate 5 Mg Tab) 5 mg PO QAM ESTHER Stop: 02/09/25 08:59 Last Admin: 01/24/25 09:05 Dose: 5 mg Documented By: Admin: 01/23/25 08:49 Dose: Not Given Documented By: Admin: 01/22/25 08:37 Dose: 5 mg Documented By: Admin: 01/21/25 10:40 Dose: 5 mg Documented By: Admin: 01/20/25 09:22 Dose: 5 mg Documented By: Admin: 01/19/25 08:14 Dose: 5 mg Documented By: Admin: 01/18/25 08:28 Dose: Not Given Documented By: Admin: 01/17/25 13:49 Dose: 5 mg Documented By: Admin: 01/16/25 13:01 Dose: 5 mg Documented By: Admin: 01/15/25 08:12 Dose: 5 mg Documented By: Admin: 01/14/25 09:07 Dose: 5 mg Documented By: Admin: 01/13/25 14:08 Dose: 5 mg Documented By: Admin: 01/12/25 08:53 Dose: 5 mg Documented By: Admin: 01/11/25 10:15 Dose: Not Given Documented By: Admin: 01/10/25 08:28 Dose: 5 mg Documented By: ASA Aspirin (Aspirin 81 Mg Ectab) 81 mg PO DAILY ESTHER Stop: 02/09/25 08:59 Last Admin: 01/24/25 09:05 Dose: 81 mg Documented By: Admin: 01/23/25 08:49 Dose: Not Given Documented By: Admin: 01/22/25 08:36 Dose: 81 mg Documented By: Admin: 01/21/25 08:27 Dose: 81 mg Documented By: Admin: 01/20/25 09:23 Dose: 81 mg Documented By: Admin: 01/19/25 08:15 Dose: 81 mg Documented By: Admin: 01/18/25 08:19 Dose: 81 mg Documented By: Admin: 01/17/25 13:50 Dose: 81 mg Documented By: Admin: 01/16/25 13:00 Dose: 81 mg Documented By: Admin: 01/15/25 08:12 Dose: 81 mg Documented By: Admin: 01/14/25 09:14 Dose: 81 mg Documented By: Admin: 01/13/25 08:40 Dose: 81 mg Documented By: Admin: 01/12/25 08:53 Dose: 81 mg Documented By: Admin: 01/11/25 09:28 Dose: 81 mg Documented By: Admin: 01/10/25 08:28 Dose: 81 mg Documented By: ASA Atenolol (Atenolol 50 Mg Tablet) 50 mg PO QAM ESTHER Stop: 02/09/25 08:59 Last Admin: 01/24/25 09:03 Dose: 50 mg Documented By: Admin: 01/23/25 08:49 Dose: Not Given Documented By: Admin: 01/22/25 08:37 Dose: 50 mg Documented By: Admin: 01/21/25 10:40 Dose: 50 mg Documented By: Admin: 01/20/25 09:22 Dose: 50 mg Documented By: Admin: 01/19/25 08:15 Dose: 50 mg Documented By: Admin: 01/18/25 08:18 Dose: 50 mg Documented By: Admin: 01/17/25 13:50 Dose: 50 mg Documented By: Admin: 01/16/25 12:58 Dose: 50 mg Documented By: Admin: 01/15/25 08:11 Dose: 50 mg Documented By: Admin: 01/14/25 09:07 Dose: 50 mg Documented By: Admin: 01/13/25 14:08 Dose: 50 mg Documented By: Admin: 01/12/25 08:53 Dose: 50 mg Documented By: Admin: 01/11/25 10:15 Dose: Not Given Documented By: Admin: 01/10/25 08:28 Dose: 50 mg Documented By: ASA Atorvastatin Calcium (Atorvastatin 40 Mg Tab) 80 mg PO HS ESTHER Stop: 02/08/25 20:59 Last Admin: 01/23/25 21:51 Dose: 80 mg Documented By: Admin: 01/22/25 21:31 Dose: 80 mg Documented By: rmt Admin: 01/21/25 21:10 Dose: 80 mg Documented By: rmt Admin: 01/20/25 19:57 Dose: 80 mg Documented By: Admin: 01/19/25 20:56 Dose: 80 mg Documented By: Admin: 01/18/25 20:53 Dose: 80 mg Documented By: Admin: 01/17/25 21:45 Dose: 80 mg Documented By: Admin: 01/16/25 21:14 Dose: 80 mg Documented By: Admin: 01/15/25 20:57 Dose: 80 mg Documented By: Admin: 01/14/25 21:02 Dose: 80 mg Documented By: Admin: 01/13/25 20:53 Dose: 80 mg Documented By: [id number] Admin: 01/12/25 21:08 Dose: 80 mg Documented By: mcl Admin: 01/11/25 21:07 Dose: 80 mg Documented By: Admin: 01/10/25 21:47 Dose: 80 mg Documented By: Admin: 01/09/25 21:41 Dose: 80 mg Documented By: Clopidogrel Bisulfate (Clopidogrel Bisulfate 75 Mg Tab) 75 mg PO HS ESTHER Stop: 02/08/25 20:59 Last Admin: 01/23/25 21:51 Dose: 75 mg Documented By: Admin: 01/22/25 21:31 Dose: 75 mg Documented By: brandon Admin: 01/21/25 21:11 Dose: 75 mg Documented By: brandon Admin: 01/20/25 19:57 Dose: 75 mg Documented By: Admin: 01/19/25 20:56 Dose: 75 mg Documented By: Admin: 01/18/25 20:53 Dose: 75 mg Documented By: Admin: 01/17/25 21:44 Dose: 75 mg Documented By: Admin: 01/16/25 21:14 Dose: 75 mg Documented By: Admin: 01/15/25 20:57 Dose: 75 mg Documented By: Admin: 01/14/25 21:02 Dose: 75 mg Documented By: Admin: 01/13/25 20:53 Dose: 75 mg Documented By: [id number] Admin: 01/12/25 21:09 Dose: 75 mg Documented By: mcl Admin: 01/11/25 21:07 Dose: 75 mg Documented By: Admin: 01/10/25 21:47 Dose: 75 mg Documented By: Admin: 01/09/25 21:41 Dose: 75 mg Documented By: JAIME Docusate Sodium (Docusate Sodium 100 Mg Cap) 100 mg PO DAILY ESTHER Stop: 02/14/25 08:59 Last Admin: 01/24/25 08:59 Dose: Not Given Documented By: Admin: 01/23/25 08:00 Dose: Not Given Documented By: Admin: 01/22/25 08:37 Dose: 100 mg Documented By: Admin: 01/21/25 08:28 Dose: 100 mg Documented By: Admin: 01/20/25 09:19 Dose: 100 mg Documented By: Admin: 01/19/25 08:16 Dose: 100 mg Documented By: Admin: 01/18/25 08:24 Dose: 100 mg Documented By: Admin: 01/17/25 08:47 Dose: 100 mg Documented By: Admin: 01/16/25 13:01 Dose: Not Given Documented By: Admin: 01/15/25 08:11 Dose: 100 mg Documented By: TIMUR Heparin Sodium (Porcine) (Heparin Sod 5,000 Unit/0.5 Ml Vial) 5,000 units SQ Q8 ESTHER Stop: 02/08/25 20:59 Last Admin: 01/24/25 13:52 Dose: 5,000 units Documented By: Admin: 01/24/25 05:06 Dose: 5,000 units Documented By: Admin: 01/23/25 21:52 Dose: 5,000 units Documented By: Admin: 01/23/25 15:17 Dose: 5,000 units Documented By: Admin: 01/23/25 05:31 Dose: 5,000 units Documented By: rmt Admin: 01/22/25 21:29 Dose: 5,000 units Documented By: rmt Admin: 01/22/25 13:34 Dose: 5,000 units Documented By: Admin: 01/22/25 05:15 Dose: 5,000 units Documented By: rmt Admin: 01/21/25 21:09 Dose: 5,000 units Documented By: rmt Admin: 01/21/25 15:31 Dose: 5,000 units Documented By: Admin: 01/21/25 05:36 Dose: 5,000 units Documented By: Admin: 01/20/25 19:58 Dose: 5,000 units Documented By: Admin: 01/20/25 13:53 Dose: Not Given Documented By: Admin: 01/20/25 05:17 Dose: 5,000 units Documented By: Admin: 01/19/25 21:06 Dose: 5,000 units Documented By: Admin: 01/19/25 13:27 Dose: 5,000 units Documented By: Admin: 01/19/25 06:31 Dose: 5,000 units Documented By: Admin: 01/18/25 23:00 Dose: 5,000 units Documented By: Admin: 01/18/25 13:38 Dose: 5,000 units Documented By: Admin: 01/18/25 06:13 Dose: 5,000 units Documented By: Admin: 01/17/25 22:17 Dose: 5,000 units Documented By: Admin: 01/17/25 13:57 Dose: 5,000 units Documented By: Admin: 01/17/25 05:50 Dose: 5,000 units Documented By: Admin: 01/16/25 21:16 Dose: 5,000 units Documented By: Admin: 01/16/25 13:07 Dose: 5,000 units Documented By: Admin: 01/16/25 05:16 Dose: 5,000 units Documented By: Admin: 01/15/25 21:02 Dose: 5,000 units Documented By: Admin: 01/15/25 12:50 Dose: 5,000 units Documented By: Admin: 01/15/25 05:01 Dose: 5,000 units Documented By: Admin: 01/14/25 21:01 Dose: 5,000 units Documented By: Admin: 01/14/25 13:13 Dose: 5,000 units Documented By: Admin: 01/14/25 05:26 Dose: 5,000 units Documented By: [id number] Admin: 01/13/25 22:00 Dose: 5,000 units Documented By: [id number] Admin: 01/13/25 17:08 Dose: 5,000 units Documented By: Admin: 01/13/25 05:05 Dose: 5,000 units Documented By: mcl Admin: 01/12/25 21:10 Dose: 5,000 units Documented By: mcl Admin: 01/12/25 16:41 Dose: Not Given Documented By: Admin: 01/12/25 05:19 Dose: 5,000 units Documented By: Admin: 01/11/25 21:08 Dose: 5,000 units Documented By: Admin: 01/11/25 14:16 Dose: 5,000 units Documented By: Admin: 01/11/25 05:22 Dose: 5,000 units Documented By: Admin: 01/10/25 21:46 Dose: 5,000 units Documented By: Admin: 01/10/25 14:17 Dose: 5,000 units Documented By: Admin: 01/10/25 05:56 Dose: 5,000 units Documented By: Admin: 01/09/25 21:48 Dose: 5,000 units Documented By: Admin: 01/09/25 21:47 Dose: 5,000 units Documented By: JAIME Ertapenem (Invanz 500mg) 500 mg in 5 mls @ 2 mls/min IV Q24H ESTHER Stop: 02/27/25 15:59 Last Admin: 01/23/25 15:21 Dose: 2 mls/min Documented By: Admin: 01/22/25 18:18 Dose: 2 mls/min Documented By: K Admin: 01/21/25 15:31 Dose: 2 mls/min Documented By: Admin: 01/20/25 18:20 Dose: 2 mls/min Documented By: Admin: 01/19/25 17:20 Dose: 2 mls/min Documented By: Admin: 01/18/25 17:10 Dose: 2 mls/min Documented By: Admin: 01/17/25 15:59 Dose: 2 mls/min Documented By: Admin: 01/16/25 16:25 Dose: 2 mls/min Documented By: STONEY Ampicillin Sodium 2,000 mg/ (Sodium Chloride) 100 mls @ 200 mls/hr IV Q12 ESTHER Stop: 03/01/25 20:59 Last Infusion: 01/24/25 10:13 Dose: Infused Documented By: Admin: 01/24/25 09:00 Dose: 100 mls/hr Documented By: Infusion: 01/23/25 21:55 Dose: Infused Documented By: Admin: 01/23/25 21:12 Dose: 200 mls/hr Documented By: Admin: 01/23/25 09:30 Dose: Not Given Documented By: Infusion: 01/22/25 22:05 Dose: Infused Documented By: brandon Admin: 01/22/25 21:30 Dose: 200 mls/hr Documented By: brandon Infusion: 01/22/25 10:06 Dose: Infused Documented By: K Admin: 01/22/25 08:36 Dose: 200 mls/hr Documented By: Infusion: 01/21/25 21:42 Dose: Infused Documented By: brandon Admin: 01/21/25 21:11 Dose: 200 mls/hr Documented By: brandon Infusion: 01/21/25 14:45 Dose: Infused Documented By: Admin: 01/21/25 10:40 Dose: 200 mls/hr Documented By: Infusion: 01/20/25 20:30 Dose: Infused Documented By: Admin: 01/20/25 20:00 Dose: 200 mls/hr Documented By: Infusion: 01/20/25 13:01 Dose: Infused Documented By: Admin: 01/20/25 10:41 Dose: 200 mls/hr Documented By: Infusion: 01/19/25 21:26 Dose: Infused Documented By: Admin: 01/19/25 20:56 Dose: 200 mls/hr Documented By: Infusion: 01/19/25 08:50 Dose: Infused Documented By: Admin: 01/19/25 08:20 Dose: 200 mls/hr Documented By: Infusion: 01/18/25 21:20 Dose: Infused Documented By: Admin: 01/18/25 20:52 Dose: 200 mls/hr Documented By: MILLA Insulin Aspart (Insulin Aspart Per Unit Charge) 0 units SC ACHS ESTHER Stop: 02/15/25 16:29 Last Admin: 01/24/25 12:31 Dose: 3 units Documented By: JIM Co-signed By: ROLAND Admin: 01/24/25 08:59 Dose: 1 units Documented By: JIM Co-signed By: edmond Admin: 01/23/25 20:13 Dose: Not Given Documented By: Admin: 01/23/25 18:04 Dose: 3 units Documented By: CHENCHO Co-signed By: SirenaO Admin: 01/23/25 12:36 Dose: Not Given Documented By: Admin: 01/23/25 08:46 Dose: 3 units Documented By: CHENCHO Co-signed By: ALICE Admin: 01/22/25 21:27 Dose: 1 units Documented By: brandon Co-signed By: alt Admin: 01/22/25 17:08 Dose: 5 units Documented By: COLE Co-signed By: JANINE Admin: 01/22/25 12:03 Dose: 5 units Documented By: COLE Co-signed By: JANINE Admin: 01/22/25 08:35 Dose: 4 units Documented By: COLE Co-signed By: AAJuliette Admin: 01/21/25 21:02 Dose: Not Given Documented By: brandon Admin: 01/21/25 17:48 Dose: 6 units Documented By: COLE Co-signed By: dll Admin: 01/21/25 13:13 Dose: 4 units Documented By: COLE Co-signed By: DLH Admin: 01/21/25 08:26 Dose: 4 units Documented By: COLE Co-signed By: dljuliette Admin: 01/20/25 19:46 Dose: Not Given Documented By: Admin: 01/20/25 18:21 Dose: Not Given Documented By: Admin: 01/20/25 13:05 Dose: 2 units Documented By: CHENCHO Co-signed By: MARKUSS Admin: 01/20/25 09:20 Dose: 5 units Documented By: CHENCHO Co-signed By: ALICE Admin: 01/19/25 21:06 Dose: 2 units Documented By: CHAITANYA Co-signed By: KRISTA Admin: 01/19/25 17:20 Dose: 5 units Documented By: ANDRE Co-signed By: MARKUSS Admin: 01/19/25 13:27 Dose: 4 units Documented By: ANDRE Co-signed By: JANINE Admin: 01/19/25 08:13 Dose: 5 units Documented By: ANDRE Co-signed By: CM Admin: 01/18/25 20:49 Dose: Not Given Documented By: Admin: 01/18/25 16:48 Dose: 7 units Documented By: ANDRE Co-signed By: DTT Admin: 01/18/25 14:16 Dose: 4 units Documented By: ANDRE Co-signed By: ALICE Admin: 01/18/25 08:25 Dose: 4 units Documented By: ALEC Co-signed By: ALICE Admin: 01/17/25 21:55 Dose: 2 units Documented By: ANU Co-signed By: LOLIS Admin: 01/17/25 16:58 Dose: 6 units Documented By: ROLAND Co-signed By: ALMAS Admin: 01/17/25 14:42 Dose: 2 units Documented By: ROLAND Co-signed By: ALMAS Admin: 01/17/25 08:31 Dose: 2 units Documented By: ROLAND Co-signed By: ALMAS Admin: 01/16/25 20:57 Dose: Not Given Documented By: Admin: 01/16/25 17:20 Dose: 4 units Documented By: STONEY Co-signed By: ADILENE Insulin Glargine (Lantus Per Unit Charge) 25 units SQ DAILY ESTHER Stop: 02/20/25 08:59 Last Admin: 01/24/25 08:59 Dose: 25 units Documented By: JIM Co-signed By: edmond Admin: 01/23/25 08:47 Dose: 25 units Documented By: CHENCHO Co-signed By: ALICE Admin: 01/22/25 08:35 Dose: 25 units Documented By: COLE Co-signed By: RAUL Admin: 01/21/25 08:36 Dose: 25 units Documented By: COLE Co-signed By: monique Lactobacillus Acidophilus (Advanced Probiotic 625 Mg Capsule) 1,250 mg PO DAILY ESTHER Stop: 02/09/25 08:59 Last Admin: 01/24/25 09:05 Dose: 1,250 mg Documented By: Admin: 01/23/25 08:49 Dose: 1,250 mg Documented By: Admin: 01/22/25 08:36 Dose: 1,250 mg Documented By: Admin: 01/21/25 08:28 Dose: 1,250 mg Documented By: Admin: 01/20/25 09:22 Dose: 1,250 mg Documented By: Admin: 01/19/25 08:15 Dose: 1,250 mg Documented By: Admin: 01/18/25 08:18 Dose: 1,250 mg Documented By: Admin: 01/17/25 13:51 Dose: 1,250 mg Documented By: Admin: 01/16/25 12:58 Dose: 1,250 mg Documented By: Admin: 01/15/25 08:12 Dose: 1,250 mg Documented By: Admin: 01/14/25 09:13 Dose: 1,250 mg Documented By: Admin: 01/13/25 08:43 Dose: 1,250 mg Documented By: Admin: 01/12/25 08:53 Dose: 1,250 mg Documented By: Admin: 01/11/25 09:28 Dose: 1,250 mg Documented By: Admin: 01/10/25 08:28 Dose: 1,250 mg Documented By: ASA Melatonin (Melatonin 3 Mg Tab) 3 mg PO HS PRN PRN Reason: Sleep Stop: 02/08/25 12:19 Last Admin: 01/22/25 21:29 Dose: 3 mg Documented By: rmt Admin: 01/21/25 21:08 Dose: 3 mg Documented By: rmt Admin: 01/13/25 20:53 Dose: 3 mg Documented By: [id number] Admin: 01/11/25 21:07 Dose: 3 mg Documented By: Admin: 01/10/25 21:48 Dose: 3 mg Documented By: HNT Polyethylene Glycol (Polyethylene (Miralax) 17 Gm Pack) 17 gm PO BID ESTHER Stop: 02/19/25 08:59 Last Admin: 01/24/25 08:54 Dose: Not Given Documented By: Admin: 01/23/25 21:12 Dose: Not Given Documented By: Admin: 01/23/25 08:00 Dose: Not Given Documented By: Admin: 01/22/25 21:30 Dose: Not Given Documented By: rmt Admin: 01/22/25 08:36 Dose: 17 gm Documented By: Admin: 01/21/25 21:09 Dose: 17 gm Documented By: rmt Admin: 01/21/25 08:28 Dose: 17 gm Documented By: Admin: 01/20/25 19:56 Dose: 17 gm Documented By: Admin: 01/20/25 09:20 Dose: 17 gm Documented By: MES Torsemide (Torsemide 100 Mg Tab) 100 mg PO DAILY ESTHER Stop: 02/09/25 08:59 Last Admin: 01/24/25 09:05 Dose: 100 mg Documented By: Admin: 01/23/25 08:49 Dose: Not Given Documented By: Admin: 01/22/25 08:37 Dose: 100 mg Documented By: K Admin: 01/21/25 08:27 Dose: 100 mg Documented By: Admin: 01/20/25 09:22 Dose: 100 mg Documented By: Admin: 01/19/25 08:15 Dose: 100 mg Documented By: Admin: 01/18/25 08:19 Dose: 100 mg Documented By: Admin: 01/17/25 13:51 Dose: 100 mg Documented By: Admin: 01/16/25 13:00 Dose: 100 mg Documented By: Admin: 01/15/25 08:11 Dose: 100 mg Documented By: Admin: 01/14/25 09:07 Dose: 100 mg Documented By: Admin: 01/13/25 14:08 Dose: 100 mg Documented By: Admin: 01/12/25 08:53 Dose: 100 mg Documented By: Admin: 01/11/25 10:15 Dose: Not Given Documented By: Admin: 01/10/25 08:30 Dose: 100 mg Documented By: HUY Vitamin D (Cholecalciferol 25 Mcg (1000 Units) Tab) 25 mcg PO [id number]@[id number] ESTHER Stop: 02/08/25 12:29 Last Admin: 01/22/25 08:36 Dose: 25 mcg Documented By: K Admin: 01/20/25 09:22 Dose: 25 mcg Documented By: Admin: 01/18/25 08:18 Dose: 25 mcg Documented By: Admin: 01/16/25 13:01 Dose: 25 mcg Documented By: Admin: 01/13/25 08:43 Dose: 25 mcg Documented By: Admin: 01/11/25 09:27 Dose: 25 mcg Documented By: Admin: 01/09/25 16:20 Dose: 25 mcg Documented By: VAUGHN Discontinued Medications Atropine Sulfate (Atropine Sulfate 0.1 Mg/Ml 10ml Syr) Confirm Administered Dose 1 mg IV .STK-MED ONE Stop: 01/16/25 11:45 Last Admin: 01/16/25 13:02 Dose: Not Given Documented By: STONEY Bisacodyl (Bisacodyl 10 Mg Supp) 10 mg DC NOW STA Stop: 01/15/25 12:16 Last Admin: 01/15/25 12:50 Dose: 10 mg Documented By: TIMUR Bisacodyl (Bisacodyl 5 Mg Tabec) 5 mg PO NOW ONE Stop: 01/19/25 16:46 Last Admin: 01/19/25 17:46 Dose: Not Given Documented By: ANDRE Bisacodyl (Bisacodyl 10 Mg Supp) 10 mg DC NOW STA Stop: 01/19/25 17:27 Last Admin: 01/19/25 18:00 Dose: 10 mg Documented By: ANDRE Bupivacaine HCl (Bupivacaine 0.5 % 5 Mg/1 Ml Mpf 30ml Vial) Confirm Administered Dose 30 ml .ROUTE .STK-MED ONE Stop: 01/10/25 16:21 Last Admin: 01/10/25 17:10 Dose: 10 ml Documented By: [id number] Bupivacaine HCl (Bupivacaine 0.5 % 5 Mg/1 Ml Mpf 30ml Vial) Confirm Administered Dose 30 ml .ROUTE .STK-MED ONE Stop: 01/12/25 16:42 Last Admin: 01/12/25 17:05 Dose: 10 ml Documented By: [id number] Docusate Sodium (Docusate Sodium 100 Mg Cap) 100 mg PO DAILY PRN PRN Reason: Constipation Stop: 02/08/25 12:19 Last Admin: 01/14/25 09:05 Dose: 100 mg Documented By: Admin: 01/11/25 09:26 Dose: 100 mg Documented By: Admin: 01/10/25 19:41 Dose: 100 mg Documented By: DAVIDT Epoetin Manuel (Epoetin Manuel 4,000 Unit/Ml Vial) 4,000 units IV ONE ONE Stop: 01/09/25 13:31 Last Admin: 01/09/25 15:17 Dose: 4,000 units Documented By: ENRIQUE Epoetin Manuel (Epoetin Manuel 20,000 Units/Ml Vial) 20,000 units IV ONE ONE Stop: 01/11/25 07:01 Last Admin: 01/11/25 12:25 Dose: 20,000 units Documented By: CC Epoetin Manuel (Epoetin Manuel 20,000 Units/Ml Vial) 20,000 units IV ONCE ONE Stop: 01/13/25 07:01 Last Admin: 01/13/25 12:38 Dose: 20,000 units Documented By: ALBERT Epoetin Manuel (Epoetin Manuel 20,000 Units/Ml Vial) 20,000 units IV ONE ONE Stop: 01/16/25 07:01 Last Admin: 01/17/25 11:14 Dose: 20,000 units Documented By: ENRIQUE Epoetin Manuel (Epoetin Manuel 4,000 Unit/Ml Vial) 4,000 units IV ONE ONE Stop: 01/18/25 07:01 Last Admin: 01/18/25 10:37 Dose: 4,000 units Documented By: ALBERT Epoetin Manuel (Epoetin Manuel 10,000 Units/Ml Vial) 10,000 units IV ONE ONE Stop: 01/20/25 07:01 Last Admin: 01/20/25 15:31 Dose: 10,000 units Documented By: ALBERT Epoetin Manuel (Epoetin Manuel 10,000 Units/Ml Vial) 10,000 units IV ONE ONE Stop: 01/23/25 07:01 Last Admin: 01/23/25 12:06 Dose: 10,000 units Documented By: ALBERT Fentanyl Citrate (Fentanyl Citrate Pf 100 Mcg/2 Ml Vial) 75 mcg IV NOW STA Stop: 01/09/25 07:47 Last Admin: 01/09/25 08:01 Dose: 75 mcg Documented By: JOSEFINA Fentanyl Citrate (Fentanyl Citrate Pf 100 Mcg/2 Ml Vial) 75 mcg IV NOW STA Stop: 01/09/25 09:36 Last Admin: 01/09/25 09:42 Dose: 75 mcg Documented By: JOSEFINA Fentanyl Citrate (Fentanyl Citrate Pf 100 Mcg/2 Ml Vial) Confirm Administered Dose 100 mcg .ROUTE .STK-MED ONE Stop: 01/16/25 09:02 Last Admin: 01/16/25 11:24 Dose: 100 mcg Documented By: DAREN Fentanyl Citrate (Fentanyl Citrate Pf 100 Mcg/2 Ml Vial) Confirm Administered Dose 100 mcg .ROUTE .STK-MED ONE Stop: 01/16/25 10:16 Last Increment: 01/16/25 11:25 Dose: 50 mcg Documented By: DAREN Gabapentin (Gabapentin 600 Mg Tab) 600 mg PO TID ESTHER Stop: 02/08/25 13:59 Last Admin: 01/20/25 13:48 Dose: Not Given Documented By: Admin: 01/20/25 09:22 Dose: 600 mg Documented By: Admin: 01/19/25 20:55 Dose: 600 mg Documented By: Admin: 01/19/25 13:27 Dose: 600 mg Documented By: Admin: 01/19/25 08:14 Dose: 600 mg Documented By: Admin: 01/18/25 20:54 Dose: 600 mg Documented By: Admin: 01/18/25 13:38 Dose: 600 mg Documented By: Admin: 01/18/25 08:18 Dose: 600 mg Documented By: Admin: 01/17/25 21:46 Dose: 600 mg Documented By: Admin: 01/17/25 13:52 Dose: 600 mg Documented By: Admin: 01/17/25 12:57 Dose: Not Given Documented By: Admin: 01/16/25 21:13 Dose: 600 mg Documented By: Admin: 01/16/25 13:47 Dose: Not Given Documented By: Admin: 01/16/25 12:58 Dose: 600 mg Documented By: Admin: 01/15/25 20:57 Dose: 600 mg Documented By: Admin: 01/15/25 12:50 Dose: 600 mg Documented By: Admin: 01/15/25 08:11 Dose: 600 mg Documented By: Admin: 01/14/25 21:02 Dose: 600 mg Documented By: Admin: 01/14/25 13:13 Dose: 600 mg Documented By: Admin: 01/14/25 09:06 Dose: 600 mg Documented By: Admin: 01/13/25 20:53 Dose: 600 mg Documented By: [id number] Admin: 01/13/25 17:08 Dose: 600 mg Documented By: Admin: 01/13/25 08:44 Dose: 600 mg Documented By: Admin: 01/12/25 21:09 Dose: 600 mg Documented By: mcl Admin: 01/12/25 16:40 Dose: Not Given Documented By: Admin: 01/12/25 08:53 Dose: 600 mg Documented By: Admin: 01/11/25 21:07 Dose: 600 mg Documented By: Admin: 01/11/25 14:16 Dose: 600 mg Documented By: Admin: 01/11/25 09:27 Dose: 600 mg Documented By: Admin: 01/10/25 21:48 Dose: 600 mg Documented By: Admin: 01/10/25 14:17 Dose: 600 mg Documented By: Admin: 01/10/25 08:28 Dose: 600 mg Documented By: Admin: 01/09/25 21:41 Dose: 600 mg Documented By: Admin: 01/09/25 16:20 Dose: 600 mg Documented By: VAUGHN Heparin Sodium (Porcine) (Heparin Sod (Porcine) 1000 Unit/Ml) 1,000 units IV ONE ONE Stop: 01/09/25 11:22 Last Admin: 01/09/25 12:55 Dose: Not Given Documented By: ENRIQUE Heparin Sodium (Porcine) (Heparin Sod (Porcine) 1000 Unit/Ml) 400 units IV Q1H [facility] Stop: 01/09/25 13:31 Last Admin: 01/09/25 16:00 Dose: Not Given Documented By: Admin: 01/09/25 16:00 Dose: Not Given Documented By: Admin: 01/09/25 15:16 Dose: Not Given Documented By: ENRIQUE Heparin Sodium (Porcine) (Heparin (Porcine) 1000 Unit/Ml 10 Ml ([employer] Use Only)) Confirm Administered Dose 10,000 units .ROUTE .STK-MED ONE Stop: 01/16/25 09:34 Last Admin: 01/16/25 11:25 Dose: 7,000 units Documented By: DAREN Heparin Sodium (Porcine) (Heparin Sod (Porcine) 1000 Unit/Ml) 2,000 units IV ONE ONE Stop: 01/17/25 08:58 Last Admin: 01/17/25 09:39 Dose: Not Given Documented By: ENRIQUE Heparin Sodium (Porcine) (Heparin Sod (Porcine) 1000 Unit/Ml) 1,500 units IV Q1H [facility] Stop: 01/17/25 11:01 Last Admin: 01/17/25 14:51 Dose: Not Given Documented By: Admin: 01/17/25 11:15 Dose: Not Given Documented By: Admin: 01/17/25 11:14 Dose: Not Given Documented By: ENRIQUE Heparin Sodium (Porcine) (Heparin Sod (Porcine) 1000 Unit/Ml) 2,000 units IV ONE ONE Stop: 01/20/25 07:01 Last Admin: 01/20/25 15:31 Dose: Not Given Documented By: CC Heparin Sodium (Porcine) (Heparin Sod (Porcine) 1000 Unit/Ml) 400 units IV Q1H [facility] Stop: 01/20/25 09:01 Last Admin: 01/20/25 15:32 Dose: Not Given Documented By: Admin: 01/20/25 15:32 Dose: Not Given Documented By: Admin: 01/20/25 15:31 Dose: Not Given Documented By: CC Heparin Sodium (Porcine) (Heparin Sod (Porcine) 1000 Unit/Ml) 2,000 units IV ONE ONE Stop: 01/23/25 07:01 Last Admin: 01/23/25 11:40 Dose: Not Given Documented By: CC Heparin Sodium (Porcine) (Heparin Sod (Porcine) 1000 Unit/Ml) 400 units IV Q1H [facility] Stop: 01/23/25 09:01 Last Admin: 01/23/25 11:40 Dose: Not Given Documented By: Admin: 01/23/25 11:40 Dose: Not Given Documented By: Admin: 01/23/25 11:40 Dose: Not Given Documented By: CC Ertapenem (Invanz 500mg) 500 mg in 5 mls @ 2 mls/min IV ONCE ONE Stop: 01/09/25 09:32 Last Admin: 01/09/25 09:43 Dose: 2 mls/min Documented By: JOSEFINA Vancomycin HCl 2,000 mg/ (Sodium Chloride) 540 mls @ 200 mls/hr IV NOW STA Stop: 01/09/25 13:50 Last Infusion: 01/09/25 19:49 Dose: Infused Documented By: Infusion: 01/09/25 18:10 Dose: 200 mls/hr Documented By: Infusion: 01/09/25 17:35 Dose: 0 mls/hr Documented By: Admin: 01/09/25 16:20 Dose: 200 mls/hr Documented By: TLM Ertapenem (Invanz 500mg) 500 mg in 5 mls @ 2 mls/min IV Q24H ESTHER Stop: 02/21/25 09:29 Last Admin: 01/15/25 15:11 Dose: 2 mls/min Documented By: Admin: 01/14/25 18:23 Dose: 2 mls/min Documented By: Admin: 01/13/25 14:13 Dose: 2 mls/min Documented By: Admin: 01/12/25 08:51 Dose: 2 mls/min Documented By: Admin: 01/11/25 16:11 Dose: Not Given Documented By: Admin: 01/10/25 10:27 Dose: 2 mls/min Documented By: brittany Vancomycin HCl (Vancomycin Hcl / Nss) 1,000 mg in 270 mls @ 200 mls/hr IV TODAY@1600 ONE Stop: 01/11/25 17:20 Last Infusion: 01/11/25 18:40 Dose: Infused Documented By: Admin: 01/11/25 17:05 Dose: 200 mls/hr Documented By: WM Vancomycin HCl 1,250 mg/ (Sodium Chloride) 275 mls @ 200 mls/hr IV 1600 ONE Stop: 01/13/25 17:22 Last Infusion: 01/13/25 18:30 Dose: Infused Documented By: Admin: 01/13/25 17:07 Dose: 200 mls/hr Documented By: JAVID Ampicillin Sodium 2,000 mg/ (Sodium Chloride) 100 mls @ 200 mls/hr IV Q12 [facility]HER Stop: 02/27/25 20:59 Last Infusion: 01/18/25 14:11 Dose: Infused Documented By: Admin: 01/18/25 13:37 Dose: 200 mls/hr Documented By: Infusion: 01/17/25 22:18 Dose: Infused Documented By: Admin: 01/17/25 21:43 Dose: 200 mls/hr Documented By: Infusion: 01/17/25 14:15 Dose: Infused Documented By: Admin: 01/17/25 13:45 Dose: 200 mls/hr Documented By: Infusion: 01/16/25 21:49 Dose: Infused Documented By: Admin: 01/16/25 21:14 Dose: 200 mls/hr Documented By: AMANDEEP Vancomycin HCl (Vancomycin Hcl / Nss) 1,000 mg in 270 mls @ 200 mls/hr IV NOW ONE; Protocol Stop: 01/18/25 16:19 Last Admin: 01/18/25 16:04 Dose: Not Given Documented By: ANDRE Albumin Human (Albumin 25%) 12.5 gm in 50 mls @ 50 mls/hr IV ONE ONE Stop: 01/20/25 23:03 Last Infusion: 01/20/25 23:19 Dose: Infused Documented By: Admin: 01/20/25 22:19 Dose: 50 mls/hr Documented By: KATARINA Insulin Aspart (Insulin Aspart Per Unit Charge) 0 units SC ACHS [facility]HER Stop: 02/08/25 12:19 Last Admin: 01/15/25 20:58 Dose: Not Given Documented By: Admin: 01/15/25 17:46 Dose: 8 units Documented By: TIMUR Co-signed By: cristi Admin: 01/15/25 12:49 Dose: 5 units Documented By: J Co-signed By: cristi Admin: 01/15/25 08:32 Dose: 6 units Documented By: TIMUR Co-signed By: cristi Admin: 01/14/25 21:02 Dose: 2 units Documented By: SAMAN Co-signed By: LOUISE Admin: 01/14/25 18:22 Dose: 5 units Documented By: HUY Co-signed By: [facility] Admin: 01/14/25 12:58 Dose: 5 units Documented By: ASA Co-signed By: [facility] Admin: 01/14/25 09:12 Dose: 5 units Documented By: HUY Co-signed By: [facility] Admin: 01/13/25 21:03 Dose: 1 units Documented By: [id number] Co-signed By: SAMAN Admin: 01/13/25 17:51 Dose: 6 units Documented By: JAVID Co-signed By: cristi Admin: 01/13/25 14:05 Dose: 3 units Documented By: JAVID Co-signed By: cristi Admin: 01/13/25 08:55 Dose: 4 units Documented By: JAVID Co-signed By: kalee Admin: 01/12/25 21:09 Dose: 2 units Documented By: chiquis Co-signed By: LOUISE Admin: 01/12/25 17:45 Dose: Not Given Documented By: Admin: 01/12/25 13:32 Dose: Not Given Documented By: Admin: 01/12/25 08:43 Dose: Not Given Documented By: Admin: 01/11/25 21:07 Dose: 1 units Documented By: HNT Co-signed By: LISA Admin: 01/11/25 17:24 Dose: 5 units Documented By: WM Co-signed By: SOFY Admin: 01/11/25 14:15 Dose: Not Given Documented By: Admin: 01/11/25 09:26 Dose: 3 units Documented By: WM Co-signed By: APR Admin: 01/10/25 21:39 Dose: Not Given Documented By: Admin: 01/10/25 19:23 Dose: Not Given Documented By: Admin: 01/10/25 12:23 Dose: Not Given Documented By: Admin: 01/10/25 08:27 Dose: Not Given Documented By: Admin: 01/09/25 21:40 Dose: 1 units Documented By: JAIME Co-signed By: MG Admin: 01/09/25 17:30 Dose: Not Given Documented By: Admin: 01/09/25 12:20 Dose: Not Given Documented By: TLM Insulin Aspart (Insulin Aspart Per Unit Charge) 0 units SC Q6 [facility]HER Stop: 02/15/25 06:44 Last Admin: 01/16/25 13:10 Dose: 5 units Documented By: STONEY Co-signed By: JAIME(2) Admin: 01/16/25 06:46 Dose: 2 units Documented By: DANA Co-signed By: SATURNINO Insulin Glargine (Lantus Per Unit Charge) 15 units SQ ONE ONE Stop: 01/09/25 11:03 Last Admin: 01/09/25 11:23 Dose: 15 units Documented By: isabela Co-signed By: LAKISHA Insulin Glargine (Lantus Per Unit Charge) 0 - 20 units SQ DAILY [facility]HER Stop: 02/09/25 08:59 Last Admin: 01/18/25 08:24 Dose: 20 units Documented By: PK Co-signed By: KJS Admin: 01/17/25 10:30 Dose: Not Given Documented By: Admin: 01/16/25 13:09 Dose: 20 units Documented By: STONEY Co-signed By: [email or web address]) Admin: 01/15/25 08:31 Dose: 20 units Documented By: TIMUR Co-signed By: cristi Admin: 01/14/25 09:13 Dose: 10 units Documented By: ASA Co-signed By: [facility] Admin: 01/13/25 08:47 Dose: 10 units Documented By: JAVID Co-signed By: kalee Admin: 01/12/25 08:51 Dose: 10 units Documented By: JAVID Co-signed By: BIGG Admin: 01/11/25 09:27 Dose: 20 units Documented By: WM Co-signed By: TOMMY Admin: 01/10/25 08:29 Dose: 10 units Documented By: HUY Co-signed By: LENNY Insulin Glargine (Lantus Per Unit Charge) 20 units SQ DAILY [facility]HER Stop: 02/18/25 08:59 Last Admin: 01/19/25 08:21 Dose: 20 units Documented By: ANDRE Co-signed By: JANINE Insulin Glargine (Lantus Per Unit Charge) 22 units SQ DAILY ESTHER Stop: 02/19/25 08:59 Last Admin: 01/20/25 09:20 Dose: 22 units Documented By: CHENCHO Co-signed By: ALICE Ioversol (Optiray 320 125ml) 120 ml IV ONCE ONE Stop: 01/10/25 10:04 Last Admin: 01/10/25 10:04 Dose: 120 ml Documented By: LORENA Lidocaine HCl (Lidocaine 1% Local 20 Ml Vial) Confirm Administered Dose 20 ml .ROUTE .STK-MED ONE Stop: 01/16/25 06:58 Last Admin: 01/16/25 11:24 Dose: 20 ml Documented By: DAREN Midazolam HCl (Midazolam Hcl 5 Mg/Ml 1 Ml Vial) Confirm Administered Dose 5 mg .ROUTE .STK-MED ONE Stop: 01/16/25 09:02 Last Increment: 01/16/25 11:25 Dose: 2.5 mg Documented By: DAREN Morphine Sulfate (Morphine Sulfate 4 Mg/Ml 1 Ml Carp\Vial) 3 mg IV Q4H PRN PRN Reason: Severe Pain (Scale 7, 8, 9,10) Stop: 01/23/25 12:19 Last Admin: 01/21/25 08:37 Dose: 3 mg Documented By: Admin: 01/20/25 09:17 Dose: 3 mg Documented By: Admin: 01/19/25 18:02 Dose: 3 mg Documented By: Admin: 01/18/25 19:35 Dose: 3 mg Documented By: Admin: 01/18/25 13:41 Dose: 3 mg Documented By: Admin: 01/18/25 02:47 Dose: 3 mg Documented By: Admin: 01/17/25 16:22 Dose: 3 mg Documented By: Admin: 01/16/25 12:16 Dose: 3 mg Documented By: Admin: 01/15/25 21:18 Dose: 3 mg Documented By: Admin: 01/14/25 09:05 Dose: 3 mg Documented By: Admin: 01/14/25 01:31 Dose: 3 mg Documented By: [id number] Admin: 01/13/25 20:52 Dose: 3 mg Documented By: [id number] Admin: 01/13/25 11:49 Dose: 3 mg Documented By: Admin: 01/12/25 21:27 Dose: 3 mg Documented By: mcl Admin: 01/10/25 21:47 Dose: 3 mg Documented By: Admin: 01/10/25 12:22 Dose: 3 mg Documented By: Admin: 01/09/25 21:39 Dose: 3 mg Documented By: Admin: 01/09/25 13:45 Dose: 3 mg Documented By: TLM Oxycodone HCl (Oxycodone Hcl Soln 5 Mg/5 Ml Udc) 5 mg PO Q6H PRN PRN Reason: Moderate Pain (Scale 4, 5, 6) Stop: 01/23/25 12:19 Last Admin: 01/23/25 09:58 Dose: 5 mg Documented By: Admin: 01/19/25 02:08 Dose: 5 mg Documented By: Admin: 01/18/25 09:53 Dose: 5 mg Documented By: Admin: 01/17/25 15:12 Dose: 5 mg Documented By: Admin: 01/15/25 14:24 Dose: 5 mg Documented By: Admin: 01/14/25 12:38 Dose: 5 mg Documented By: Admin: 01/14/25 05:26 Dose: 5 mg Documented By: [id number] Admin: 01/13/25 17:07 Dose: 5 mg Documented By: Admin: 01/13/25 08:55 Dose: 5 mg Documented By: Admin: 01/12/25 10:03 Dose: 5 mg Documented By: Admin: 01/10/25 19:40 Dose: 5 mg Documented By: Admin: 01/10/25 08:29 Dose: 5 mg Documented By: ASA Polyethylene Glycol (Polyethylene (Miralax) 17 Gm Pack) 17 gm PO DAILY PRN PRN Reason: Constipation Stop: 02/08/25 12:19 Last Admin: 01/14/25 09:04 Dose: 17 gm Documented By: Admin: 01/11/25 21:08 Dose: 17 gm Documented By: Admin: 01/09/25 21:39 Dose: 17 gm Documented By: MH Polyethylene Glycol (Polyethylene (Miralax) 17 Gm Pack) 17 gm PO DAILY ESTHER Stop: 02/14/25 08:59 Last Admin: 01/19/25 08:15 Dose: 17 gm Documented By: Admin: 01/18/25 08:24 Dose: 17 gm Documented By: Admin: 01/17/25 08:47 Dose: 17 gm Documented By: Admin: 01/16/25 13:08 Dose: 17 gm Documented By: Admin: 01/15/25 08:11 Dose: 17 gm Documented By: JDR Potassium Chloride (Potassium Chloride Crtab 20 Meq Tabcr) 40 meq PO NOW STA Stop: 01/22/25 09:32 Last Admin: 01/22/25 09:48 Dose: 40 meq Documented By: SEK Potassium Chloride (Potassium Chloride Crtab 20 Meq Tabcr) 40 meq PO NOW STA Stop: 01/24/25 07:18 Last Admin: 01/24/25 09:00 Dose: 40 meq Documented By: LAF Sodium Biphosphate/Sodium Phosphate (Sod Phosphate/Sod Biphosphate Enema 132 Ml Btl) 132 ml DC NOW STA Stop: 01/20/25 07:36 Last Admin: 01/20/25 10:47 Dose: 132 ml Documented By: MES Description This is a 21 electrode EEG with a single channel dedicated to limited EKG. The electrodes were placed in accordance with the International 10-20 system. The background rhythm consists of a mix of generalized 6 Hz theta activity and admixed 10 Hz alpha rhythm. There is a low amplitude symmetric frontal beta rhythm. There is no focal slowing, there are no triphasic waves, there are no epileptiform abnormalities. Interpretation Abnormal awake/drowsy EEG consistent with a nonspecific encephalopathy. No epileptiform abnormalities observed. [facility] EEG Procedure Codes Indication for Procedure (1) Confusion and disorientation: (2) Seizure-like activity: Neurology Neurology: 36140 EEG include record awake & drowsy
[2025-01-25 06:19] LABS: Hematocrit (blood only) 28.9 % (42.0-52.0); Hemoglobin 9.3 g/dL (14.0-18.0); Mean Corpuscular Hemoglobin 30.5 pg (25.0-34.0); Mean Corpuscular Volume 94.8 fL (80.0-100.0); Platelet Count 408 K/uL (130-400); RDW Standard Deviation 54.2 fL (36.4-46.3); Red Blood Count 3.05 M/uL (4.70-6.10); White Blood Count 13.15 K/ul (4.8-10.8)
[2025-01-25 06:50] LABS: Anion Gap 14.0 (3-11); Blood Urea Nitrogen 63.0 mg/dl (6-23); Calcium 8.5 mg/dl (8.6-10.3); Carbon Dioxide 22.0 mmol/L (21-32); Chloride 98.0 mmol/L (98-107); Creatinine Clr Calc Pharmacy 15.6 ml/min; Glucose 137.0 mg/dl (70-99(Fasting)); Potassium 4.1 mmol/L (3.5-5.1); Sodium 134.0 mmol/L (136-145)
[2025-01-25] MEDS ORDERED: SODIUM CHLORIDE 0.9% 1,000 ML IV PRN (07:00)
[2025-01-25 07:51] LABS: HIV 1 RNA PCR Copies/ML Not Detected Copies/mL; Hepatitis A Antibody IgM NON-REACTIVE (NON-REACTIVE); Hepatitis B Core Antibody IgM NON-REACTIVE (NON-REACTIVE)
[2025-01-25] MEDS: HEPARIN SOD (PORCINE) 1000 UNIT/ML IV ONE (09:30)
[2025-01-25] MEDS: EPOETIN ALFA 20,000 UNITS/ML VIAL IV ONE (10:44)
--- NOTE | 2025-01-25 11:02 | Hospitalist Progress Note ---
Date of Service January 25, 2025 Assessment & Plan (1) Abscess of left foot: Plan 64 yo M with history of T2DM, diabetic neuropathy, PAD s/p prior revascularizations, CAD s/p CABG x 2, complete heart block s/p pacemaker, bicuspid aortic valve s/p AVR, ESRD on HD, history of steal syndrome for AVF, CVA, PE who presented on 01/09 with worsening L foot pain x 3-4 days, found on CT to have soft tissue fluid collection adjacent to TMA site c/f abscess. #L foot osteomyelitis -S/p TMA, c/b soft tissue abscess s/p I&D -In setting of severe PAD, DM -Wound cx growing ESBL Kleb and E. faecalis -Unable to place Midline 01/18 Plan -Per ID: Ertapenem with HD three times per week, amoxicillin 2 gram BID through 02/21 -While hospitalized, continue ampicillin and ertapenem per ID -Ertapenem with HD will have to be confirmed with CM and OP HD clinic prior to discharge -Continue wound care #AMS Suspect vascular dementia -Multifactorial due to hospital acquired delirium+ metabolic encephalopathy due to infection, ESRD, gabapentin -CTH 01/21 no acute pathology, but did show cerebral atrophy, old infarcts and chronic small vessel disease -B12, TSH, NH3 normal -No tremors or asterixis -Waxing and waning presentation suggestive of delirium -UA 01/23 abnormal; awaiting culture -EEGabnormal awake/drowsy EEG consistent with nonspecific encephalopathic; no epileptiform abnormality observed -Unable to undergo MRI due to pacemaker Plan -Follow urine culture. Should it grow a pathogen that is not typically a colonizer, would reach out to ID again to discuss -Delirium precautions -Avoid Beer's list medications -Hold home gabapentin -Avoid opioids #Leukocytosis -In setting of osteomyelitis -WBC downtrending a -Afebrile -Blood cultures from 01/20 NGTD but already on broad spectrum abx -Monitor temp, WBC, f/u on blood cx and urine cx from 01/23 #Constipation -Moderate liquid bowel movement on 01/23 -Continue bowel regimen #PAD -Vascular surgery consulted, s/p LLE angio showing 1 vessel runoff to foot -Continue DAPT, statin therapy #ESRD #Hypokalemia- replace and follow -Continue HD per nephrology #DM -BG better controlled -Continue lantus 25 units daily -Continue novolog SSI -BGM ACHS #HTN -Continue current BP regimen #Anemia -Chronic, POA -No s/s acute blood loss -Secondary to chronic illness, ESRD -EPO per nephro with HD #Hyponatremia -Mild asymptomatic. monitor #CAD -Continue home cardiac regimen #History of CVA -Continue DAPT, statin therapy I discussed with patient's regarding events since last few months. She acknowledges that patient's functional and mental status has gradually declined over the course of last few months. She talked about hoping for the best and preparing for the worst. She is hoping that patient will progress well in rehab. She also acknowledges that there is a risk that patient will have repeated admissions due to decline in functional capacity; recurrent infections, multiple comorbidities. Peer to peer done as patient was rejected for SNF; was accepted for SNF. I spent a total of 55 minutes coordinating, documenting, and providing care for this patient excluding time spent in the performance of separately billed services. This included personally reviewing all current laboratories and imaging studies, medical reconciliation, outpatient chart review and discussion with specialists Admission and Anticipated Discharge Date Admission Date: January 09, 2025 Subjective Patient seen and examined in the hemodialysis unit. He is comfortable; not in distress. No significant events overnight Review of Systems Review of Systems: All systems reviewed & are unremarkable except as noted in Subjective Physical Exam Physical Exam: Constitutional: . Awake,not in distress. Respiratory: normal respiratory effort, lungs clear to auscultation, no wheeze, rales, rhonchi. Normal insp/exp effort, no accessory muscle use Cardiovascular: RRR, no murmur, no edema Vessels: no JVD or carotid bruit Chest: normal inspection of chest Abdomen: normal bowel sounds, soft, nontender, no hepatosplenomegaly Musculoskeletal: Left foot bandaged. No soakage. Neurologic: PERRL, EOMI, accommodation nl, no face palsy, no dysarthria CN's II- XI intact bilaterally and moves all extremities Results & Data Results & Data Vital Signs (Past 12 Hours) Vital Signs Temp Pulse Pulse Pulse Pulse Resp BP 01/25/25 09:30 74 109/65 01/25/25 09:00 77 114/60 01/25/25 08:51 79 122/78 01/25/25 08:44 36.4 C L 79 01/25/25 08:00 71 01/25/25 07:45 01/25/25 07:22 36.7 C 68 17 01/25/25 02:28 36.7 C 70 18 BP Pulse Ox O2 Del Method 01/25/25 09:30 01/25/25 09:00 01/25/25 08:51 01/25/25 08:44 01/25/25 08:00 01/25/25 07:45 Room Air 01/25/25 07:22 122/64 95 Room Air 01/25/25 02:28 155/90 H 96 Room Air
--- NOTE | 2025-01-25 16:59 | Dialysis Progress Note ---
Date of Service January 25, 2025 Assessment & Plan (1) End stage renal disease on dialysis: Plan: ESRD on hemodialysis Thursday. At this time no evidence of fluid overload and no electrolyte issues. had HD 01/18 for 3 L UF - patient tolerated HD well Saturday 01/20 for 3-1/2 hours with 2L fluid removed -tolerated HD well 01/23, 3LUF w/ acceptable UFR of 7.4 ml/kg/hr; had 2L fluid removed today adn SBP were maintinaed hemoglobin is low but at 9.3 the highest it's been since admission. Will dose TRELL aggressively; gave 20K units per today>> some epo resistance likely on senior living abtx, w/ wounds plan had been [facility] for rehab and dialyze while there as OP [facility] >> [facility] dialysis aware and orders are in; then return to [facility] ultimately (2) Confusion and disorientation: Plan: likeliest is delirium given waxing/waning though challenging to assess and significant pain. >f/u pending urine culture which is negative; blood cxs negative on 01/20 as was ammonia level. the UF rate at HD was 01/23 was 7.5 ml/kg/hr which is well under recommended upper limits >he had a head CT 01/21 > plan had been for MRI head but this was cancelled > may not have changed mgt (3) Osteomyelitis of finger: Plan: Status post debridement and wound dressing. On ertapenem 500 mg daily through 02/21 and ampicillin IV but amp to change to amoxicillin bid 1 gm at d/c>> ertapenem MUST BE DOSED AFTER DIAYLSIS on dialysis days - already being dosed that way here; after d/c b/c he could not get midline, will do >>ertapenem 1 gm after dialysis MWF through 02/21 along w/ po amoxicillin bid; no supplemental dose on F; not able to leave w/ current IV access in place (4) Status post transmetatarsal amputation of left foot: Plan: S/P TMA of left foot complicated by infected wound. Continue antibiotics renally dosed. podiatry and ID on board Admission and Anticipated Discharge Date Admission Date: January 09, 2025 Subjective delayed entry for 12 noon eval of pt who was seen during HD tx. no sob, no n/v; having multiple BM including 4+ on treatment. remains a bit confused; pain controlled Review of Systems 2 Review of Systems: All systems reviewed & are unremarkable except as noted in Subjective Physical Exam 2 Constitutional: well developed and + thin; no acute distress Eyes: EOM intact bilaterally ENMT: Mouth: + dry oral mucous membranes Respiratory: normal respiratory effort Auscultation: + diminished lung sounds Cardiovascular: Rate/Rhythm: regular rate and regular rhythm Extremities: n o edema Gastrointestinal (Abdomen): Inspection/Auscultation: normal bowel sounds P ercussion/Palpation: abdomen soft; abdomen nontender Musculoskeletal: Extremities: strength 5/5 throughout Skin: no rashes, warm and dry (multiple amputations R hand; BL feet) Results & Data Vital Signs (Past 12 Hours) Vital Signs Temp Pulse Pulse Pulse Resp BP BP 01/25/25 15:44 36.7 C 80 18 170/98 H 01/25/25 14:11 85 01/25/25 12:38 36.7 C 84 18 126/82 01/25/25 12:36 36.3 C L 86 139/70 01/25/25 12:00 83 112/66 01/25/25 11:30 80 119/78 01/25/25 11:00 82 125/78 01/25/25 10:30 87 119/71 01/25/25 10:00 82 122/69 01/25/25 09:30 74 109/65 01/25/25 09:00 77 114/60 01/25/25 08:51 79 122/78 01/25/25 08:44 36.4 C L 79 01/25/25 08:00 71 01/25/25 07:45 01/25/25 07:22 36.7 C 68 17 122/64 Pulse Ox O2 Del Method 01/25/25 15:44 97 Room Air 01/25/25 14:11 01/25/25 12:38 99 Room Air 01/25/25 12:36 01/25/25 12:00 01/25/25 11:30 01/25/25 11:00 01/25/25 10:30 01/25/25 10:00 01/25/25 09:30 01/25/25 09:00 01/25/25 08:51 01/25/25 08:44 01/25/25 08:00 01/25/25 07:45 Room Air 01/25/25 07:22 95 Room Air Laboratory Results 01/25/25 06:01 01/25/25 06:01
[2025-01-26 06:05] LABS: Hematocrit (blood only) 29.1 % (42.0-52.0); Hemoglobin 9.3 g/dL (14.0-18.0); Mean Corpuscular Hemoglobin 30.0 pg (25.0-34.0); Mean Corpuscular Volume 93.9 fL (80.0-100.0); Platelet Count 415 K/uL (130-400); RDW Standard Deviation 52.9 fL (36.4-46.3); Red Blood Count 3.10 M/uL (4.70-6.10); White Blood Count 11.73 K/ul (4.8-10.8)
[2025-01-26 06:31] LABS: Anion Gap 12.0 (3-11); Blood Urea Nitrogen 42.0 mg/dl (6-23); Calcium 8.4 mg/dl (8.6-10.3); Carbon Dioxide 25.0 mmol/L (21-32); Chloride 96.0 mmol/L (98-107); Creatinine Clr Calc Pharmacy 20.2 ml/min; Glucose 128.0 mg/dl (70-99(Fasting)); Potassium 3.6 mmol/L (3.5-5.1); Sodium 133.0 mmol/L (136-145)
--- NOTE | 2025-01-26 09:53 | Discharge Summary ---
Date of Service January 26, 2025 Admission HPI Per Admitting Provider This is a 64-year-old male who has a significant past medical history of CAD status post CABG x 2, cardiac pacemaker in situ, history of bicuspid aortic valve status post aortic valve replacement, ESRD on HD, history of steal syndrome for AVF, PAD [with history of REIA stent, R SFA/pop lithotripsy/angioplasty for occlusion, R PT/peroneal angioplasty on 07/17], insulin-dependent T2DM, diabetic neuropathy, history of CVA, history of PE who presents to the ED secondary to worsening left foot pain x 3 to 4 days. Of significance patient was recently hospitalized at [facility] from 01/04 to 01/07 due to injuring his left foot. This is the site of previous amputations in October where he had digits 2 and 3 removed from left foot as well as partial amputation of right 4th and 5th fingers due to dry gangrene. He was seen and evaluated by his primary oxygen therapist Dr. Aguilar and underwent L TMA on 01/06. Again patient recently in October 2024 with severe sepsis secondary to left foot osteomyelitis, MSSA bacteremia in which she was discharged on 6 weeks of IV cefazolin. He presents with his at bedside who also helps eliciting history. Patient states from [facility] his left foot pain has been worsening. He feels he was discharged too early. He was prescribed Tylenol as well as oral liquid oxycodone with minimal relief. He denies any documented fever but has felt sweaty. He denies any chills, lightheadedness, headache, dizziness, chest pain, shortness of breath, cough, URI symptoms, nausea, vomiting, abdominal pain. reports he has been burning pain with urination for approximately 1 month and is scheduled to see urology for this. He otherwise denies any further UTI symptoms or diarrhea. For the last week he has been on oral Keflex which was prescribed at the [facility] on 01/03 prior to his admission to [facility]. He has been taking his medications. reports prior to most recent hospitalization he was able to assist with getting out of bed to a chair, but since discharge she is unable to get him out of bed. His appetite has otherwise been poor due to not feeling like eating. He also complains of early satiety.In ED patient had a significant elevated white blood cell count at 22,000, H&H stable at 9.3 and 27.5, ESR elevated at 60, CRP 35.62, lactate 0.8, procalcitonin elevated at 2.17, BUN/creatinine elevated 44 and 6.06. Discussed with ED provider. ED provider spoke with pharmacist given patient's recent abnormal cultures and it was decided to initiate patient on IV ertapenem and vancomycin. Left foot CT was performed concerning for postoperative changes including seroma or possible developing abscess. Admission Exam Per Admitting Provider Constitutional: chronically ill appearing male, nontoxic appearing, WD/WN, vitals as above, NAD, sitting up in bed, poor bed mobility, conversing easily Head: Normocephalic, Atraumatic Eyes: conjunctivae normal, anicteric sclerae ENMT: external ear and nose normal, oropharynx dry membranes Neck: trachea midline, no thyromegaly normal visual inspection Respiratory: CTAB, decreasing BS at bases due to poor effort, no W/R/R, normal inspection, no accessory muscle use Cardiovascular: RRR, no murmur, no edema Chest: R ACW perm cath Abdomen: S, NT, ND, +BS x 4 Musculoskeletal: no cyanosis or clubbing, L TMA surgical site well approximated with blood drainage out of lateral incision, dorsal aspect of L foot is red/warm, no purulent drainage, mild pedal edema. R finger amputations noted Skin: warm and dry mild turgor Neurologic: no face palsy, no dysarthria CN's II-XI intact bilaterally and moves all extremities Psychiatric: A+Ox3 with mild confusion, euthymic affect Principal Diagnosis #L foot osteomyelitis -S/p TMA, c/b soft tissue abscess s/p I&D Discharge Exam Constitutional: . Awake,not in distress. Respiratory: normal respiratory effort, lungs clear to auscultation, no wheeze, rales, rhonchi. Normal insp/exp effort, no accessory muscle use Cardiovascular: RRR, no murmur, no edema Vessels: no JVD or carotid bruit Chest: normal inspection of chest Abdomen: normal bowel sounds, soft, nontender, no hepatosplenomegaly Musculoskeletal: Left foot bandaged. No soakage. Neurologic: PERRL, EOMI, accommodation nl, no face palsy, no dysarthria CN's II- XI intact bilaterally and moves all extremities Discharge Data Allergies Allergy/AdvReac Type Severity Reaction Status Date / Time daptomycin Allergy Rash Verified 10/10/24 09:48 Consultations 01/09/25 09:37 Consult Nephrology Routine 01/09/25 09:52 ED Decision to Admit Stat 01/09/25 10:07 Consult Podiatry Routine 01/09/25 15:58 Consult Infectious Diseases Routine 01/10/25 06:55 Consult Vascular Surgery Routine Procedures Performed Operation Date: 01/16/25 10:00 Actual Procedures p Angio Extremity Unilateral - Johny Alfred MD p Lithotripsy Catheter Tib/Per - Johny Alfred MD Ordered Studies 01/09/25 07:45 CT foot LT wo con Stat 01/09/25 16:03 US ankle brachial index [US ankle/brachial index ltd] Routine 01/10/25 08:10 CT ang AA runof w inc wo ifdon Routine 01/16/25 07:46 CL Cath Imgs for PACS use only Routine 01/21/25 08:21 CT head/brain wo con Urgent Hospital Course (1) Abscess of left foot: Plan 64 yo M with history of T2DM, diabetic neuropathy, PAD s/p prior revascularizations, CAD s/p CABG x 2, complete heart block s/p pacemaker, bicuspid aortic valve s/p AVR, ESRD on HD, history of steal syndrome for AVF, CVA, PE who presented on 01/09 with worsening L foot pain x 3-4 days, found on CT to have soft tissue fluid collection adjacent to TMA site c/f abscess. #L foot osteomyelitis -S/p TMA, c/b soft tissue abscess s/p I&D -In setting of severe PAD, DM -Wound cx growing ESBL Kleb and E. faecalis Plan -Per ID: Ertapenem with HD three times per week, amoxicillin 1 gram BID through 02/21 -Continue wound care at Rehab. -Patient's mobility was significant issue during the hospitalization; likely due to deconditioning due to several hospitalization. Plan to continue PT OT at rehab #AMS- improved at discharge. -Multifactorial due to hospital acquired delirium+ metabolic encephalopathy due to infection, ESRD, gabapentin -CTH 01/21 no acute pathology, but did show cerebral atrophy, old infarcts and chronic small vessel disease -B12, TSH, NH3 normal -No tremors or asterixis -Waxing and waning presentation suggestive of delirium -UA / abnormal; Urine cx negative -EEGabnormal awake/drowsy EEG consistent with nonspecific encephalopathic; no epileptiform abnormality observed As per patient's ; patient's mentation has gradually declined over the c ourse of last few months. His last MRI had shown progressive white matter disease likely due to small vessel ischemic. There is a possibility that patient has onset of vascular dementia which was exacerbated with delirium during the hospitalization. At the time of the discharge, patient was alert and oriented to time, person and place and he was able to follow simple commands. #PAD -Vascular surgery consulted, s/p LLE angio showing 1 vessel runoff to foot -Continue DAPT, statin therapy #DM -BG better controlled -Continue lantus 25 units daily #HTN -Continue current BP regimen #Anemia -Chronic, POA -No s/s acute blood loss -Secondary to chronic illness, ESRD -EPO per nephro with HD #Hyponatremia -Mild asymptomatic. monitor #CAD -Continue home cardiac regimen #History of CVA -Continue DAPT, statin therapy I spent a total of 55 minutes coordinating, documenting, and providing care for this patient excluding time spent in the performance of separately billed services. This included personally reviewing all current laboratories and imaging studies, medical reconciliation, outpatient chart review and discussion with specialists Total Time Total Time Spent Total Time Spent (In Minutes): 45 Total Time Includes: Examination of the Patient, Discharge Planning, Medication Reconciliation, Communication With Other Providers and Other Discharge Plan Discharge Items Patient Disposition: Transfer Nursing Home Fac Reason For Visit: S/P L TMA, POSSIBLE POST OP INFECTION Discharge Diagnosis: #L foot osteomyelitis S/p TMA, c/b soft tissue abscess s/p I&D Condition on Discharge: Fair Activity: Resume your previous activity Non-emergency contact: Primary Care Provider Call non-emergency contact if: you have any medication questions and your symptoms worsen Follow-up/Referrals: Seth Jasso MD [Primary Care Provider] - Diet: Regular Addtl Attending Provider Instructions: You were admitted to the hospital due to osteomyelitis of the left foot. You have been prescribed ertapenem with hemodialysis 3 times per week along with amoxicillin 1 mg twice a day until February 21. Please continue wound care at the rehab facility. Pending Studies at Discharge: No Stand-Alone Forms: My [facility] Skilled Items Patient informed of condition?: No DNR: No Discharge Level of Care: Skilled Communicable Disease: No Discharge Prognosis: Stable Lines: None and Peripheral IV Urinary Catheter: No Medications and DC Order Prescriptions: New Advanced Probiotic 625 mg (10 billion cell) Capsule 2 cap PO DAILY Qty: 60 0RF amoxicillin 500 mg tablet 1,000 mg PO BID 26 Days Qty: 104 0RF Continued atorvastatin 80 mg tablet 80 mg PO HS Qty: 30 0RF clopidogrel 75 mg Tablet 75 mg PO HS Qty: 30 0RF aspirin 81 mg Tablet,Delayed Release (Dr/Ec) 81 mg PO DAILY Qty: 30 0RF acetaminophen 500 mg Tablet 500 - 1,000 mg PO UD PRN (Reason: Pain) Qty: 60 0RF torsemide 100 mg tablet 100 mg PO DAILY Qty: 30 0RF atenolol 50 mg tablet 50 mg PO QAM Qty: 30 0RF cholecalciferol (vitamin D3) [Vitamin D3] 25 mcg (1,000 unit) Tablet 25 mcg PO .3X WEEK Qty: 30 0RF Rx Instructions: thu,thu,fridays Changed amlodipine 5 mg tablet 5 mg PO QAM Qty: 30 0RF docusate sodium 100 mg capsule 100 mg PO BID PRN (Reason: Constipation) Qty: 60 0RF insulin glargine [Basaglar KwikPen U-100 Insulin] 100 unit/mL (3 mL) insulin pen 25 unit SUBCUT QAM Qty: 15 0RF Discontinued insulin aspart U-100 [Novolog FlexPen U-100 Insulin] 100 unit/mL (3 mL) insulin pen 1 sliding scale dose subcut UD Rx Instructions: Take 4 units in the morning, 4 units at noon, and 4 units in the evening plus sliding scale 1:20 over 140 gabapentin 600 mg Tablet 600 mg PO TID Qty: 30 0RF lidocaine 5 % Adhesive Patch,Medicated 1 patch transdermal QAM Qty: 15 0RF cephalexin 500 mg capsule 500 mg PO QID 7 Days Qty: 28 0RF oxycodone 5 mg/5 mL solution 2.5 mg PO Q6H PRN (Reason: Pain, Severe) Rx Instructions: MAY INCREASE TO 5ML IF PAIN IS STILL SEVERE 6 HOURS FROM 2.5 DOSE. Discharge Orders: Discharge Order (Routine); Ordered 01/26/25 Ordered By: To Devkota Krames/Other Patient Handouts: Nutrition for Wound Healing, Managing Type 2 Diabetes Admission Data Admit Date/Time: 01/09/25 10:07 Attending Provider: To Nixon Admit Provider: Alexia Emery Primary Care Provider: Seth Jasso Other Providers: Edmund Hansen [facility]; Marsia Huerta; Kashif Bustillo; Otoniel Lorenzo; Alexia Emery; Shivani Pritchett; Johny Alfred; Indu Gary
[2025-01-26] MEDS ORDERED: ERTAPENEM 1000MG 1,000 MG/10 ML SYR IV STA (11:24)
--- NOTE | 2025-01-26 12:03 | Nephrology Progress Note ---
Date of Service January 26, 2025 Assessment & Plan (1) End stage renal disease on dialysis: Plan: ESRD on hemodialysis Thursday. At this time no evidence of fluid overload and no electrolyte issues. had HD 01/18 for 3 L UF - patient tolerated HD well Saturday 01/20 for 3-1/2 hours with 2L fluid removed -tolerated HD well 01/23, 3LUF w/ acceptable UFR of 7.4 ml/kg/hr; had 2L fluid removed 01/25 and SBP were maintained no new labs today for chemistries and none needed > last hemoglobin is low at 9.3 again today but stable and that's the highest it's been since admission. Will dose TRELL aggressively as OP>> some epo resistance likely on nursing home abtx, w/ wounds plan remains [facility] for rehab and dialyze while there as OP at [facility] >> [place] dialysis aware and orders are in; then return to [facility] ultimately since it's noon and no definite bed yet will place orders for HD for tomorrow if here; TRELL 20K for tomorrow and standard (for him) aggressive heparin dosing reiterated plan for abtx/ HD, updated at bedside; coordinated w/ RN; case mgt notes reviewed. care coordinated w/ Dr Nixon re d/c dispo, abtx, f/u dialysis plans; we are in agreement. (2) Confusion and disorientation: Plan: likeliest is delirium given waxing/waning though challenging to assess and significant pain. still confused today >urine cx now finalized as negative; blood cxs negative on 01/20 as was ammonia level. the UF rate at HD was 01/23 was 7.5 ml/kg/hr which is well under recommended upper limits >he had a head CT 01/21 > plan had been for MRI head but this was cancelled > may not have changed mgt (3) Osteomyelitis of finger: Plan: Status post debridement and wound dressing. On ertapenem 500 mg daily through 02/21 and ampicillin IV but amp to change to amoxicillin bid 1 gm at d/c>> ertapenem MUST BE DOSED AFTER DIAYLSIS on dialysis days - already being dosed that way here; after d/c b/c he could not get midline, will do >>ertapenem 1 gm after dialysis MWF through 02/21 along w/ po amoxicillin bid; no supplemental dose on F; not able to leave w/ current IV access in place so abtx IV will be given after HD though this is NOT a dialysis related infection; [facility] to supply dose of IV abtx for 01/27 tx; thereafter [facility] will supply abtx and pt will bring them w/ him from facility to treatment where they will be administered once tx complete over 30 min (4) Status post transmetatarsal amputation of left foot: Plan: S/P TMA of left foot complicated by infected wound. Continue antibiotics renally dosed. podiatry and ID on board Admission and Anticipated Discharge Date Admission Date: January 09, 2025 Subjective no interval events clinically; more in place for DC to [facility] today though still no official bed or transport. has abtx from [facility] if he is d/c for 01/27. c/o L foot pain; no sob; still soem looser bowels Review of Systems 2 Review of Systems: All systems reviewed & are unremarkable except as noted in Subjective Physical Exam 2 Constitutional: well developed and + thin; no acute distress Eyes: EOM intact bilaterally ENMT: Mouth: + dry oral mucous membranes Respiratory: normal respiratory effort Auscultation: + diminished lung sounds Cardiovascular: Rate/Rhythm: regular rate and regular rhythm Extremities: n o edema Gastrointestinal (Abdomen): Inspection/Auscultation: normal bowel sounds P ercussion/Palpation: abdomen soft; abdomen nontender Musculoskeletal: Extremities: strength 5/5 throughout Skin: no rashes, warm and dry (multiple amputations R hand; BL feet) Results & Data Vital Signs (Past 12 Hours) Vital Signs Temp Pulse Pulse Pulse Pulse Pulse Resp 01/26/25 11:05 36.6 C 74 70 74 86 18 01/26/25 11:03 36.6 C 74 70 74 86 18 01/26/25 10:52 36.6 C 74 18 01/26/25 09:35 01/26/25 08:17 36.4 C L 74 19 01/26/25 07:03 72 01/26/25 03:42 37.1 C 70 18 BP BP Pulse Ox O2 Del Method 01/26/25 11:05 129/62 120/73 99 01/26/25 11:03 129/62 120/73 99 01/26/25 10:52 120/73 99 Room Air 12/04/25 09:35 Room Air 01/26/25 08:17 104/47 L 98 Room Air 01/26/25 07:03 01/26/25 03:42 148/76 H 97 Room Air Laboratory Results 01/26/25 05:22 01/26/25 05:22
[2025-01-27] MEDS ORDERED: SODIUM CHLORIDE 0.9% 1,000 ML IV PRN (07:00)
[2025-01-27] MEDS ORDERED: HEPARIN SOD (PORCINE) 1000 UNIT/ML IV ONE (07:00)
[2025-01-27] MEDS ORDERED: EPOETIN ALFA 20,000 UNITS/ML VIAL IV ONE (07:00)
[2025-01-27] MEDS ORDERED: HEPARIN SOD (PORCINE) 1000 UNIT/ML IV SCH (08:00)
--- NOTE | 2025-01-27 08:24 | Coding Query ---
DEBRIDEMENT DOCUMENTATION To promote full compliance with coding requirements relating to patient care, physician participation is requested in all cases of conservation planner uncertainty. Please assist us with the question(s) below: Please place an X in the parenthesis (x). If other, please document the finding: re: 01/12 Debridement Procedure Type of Debridement: ( x) Excisional Debridement- Cutting away necrotic, devitalized tissue or slough to the level of viable tissue using a sharp instrument (i.e. scalpel, scissors, etc.) ( ) Non Excisional Debridement- The removal of necrotic, devitalized tissue or slough by means of scraping, mechanical brushing, flushing, or washing (i.e. irrigation,whirlpool);minor removal of loose fragments. ( ) Other (please specify): Instrument Used: ( ) Scissors ( x) Scalpel ( ) Curette ( ) Other (please specify): Depth of Debridement: ( ) Skin ( ) Skin and Subcutaneous Tissue ( ) Skin, Subcutaneous Tissue and Muscle (x ) Skin, Subcutaneous Tissue, Muscle and Bone ( ) Other (please specify): Please Specify the Size of Debridement in cm2: Thank you BRANDON Cordon CCS
== END 2025-01-26 15:40 | DRG 856 ==
LOC: ED 07:29 → 2W 10:07 → SUATTDRO 10:07 → 2W 13:02 → 2E 01-16 12:44
PROC: CLB.AEU (2025-01-16 10:00)